=== PATIENT | male | born 1960 | race Caucasian/White ===

== ENCOUNTER → 2017-09-14 08:05 | Outpatient (CLI) | payer SELFPAY ==
--- NOTE | 2017-09-14 08:10 | US_ITS ---
STUDY: ABDOMINAL ULTRASOUND - RIGHT UPPER QUADRANT REASON FOR VISIT: Male, 56 years old. Elevated liver enzymes. TECHNIQUE: Ultrasound evaluation of the right upper quadrant was performed with real-time and static gomez-scale imaging. TECHNICAL QUALITY: Adequate. COMPARISON: Comparison is made with prior examination dated December 06, 2013. FINDINGS: Liver: The liver is slightly enlarged and measures 18.3 cm. There is increased echogenicity consistent with fatty infiltration. The bile ducts are within normal limits. There is hepatic color flow. The direction of portal flow is hepatopetal. There is no demonstrated mass lesion. Gallbladder: Normal distended gallbladder. The gallbladder wall measures 2.8 mm. There is a negative sonographic Becerra's sign. There is no pericholecystic fluid. There are no gallstones. Common Bile Duct (C.B.D.): The common bile duct measures 4.0 mm. Pancreas: Normal size of the head, body and tail of the pancreas. There is increased echogenicity of the pancreas. There is no demonstrated pancreatic mass or cyst. Right Kidney: Normal size of the right kidney. The right kidney measures 12.1 cm x 5.4 cm x 6.0 cm. Normal renal cortex. The right cortex measures 1.8 cm. There is no demonstrated renal mass or cyst. There is no right hydronephrosis. 4 mm calculus in the midportion of the kidney. US/Liver IMPRESSION: Mild degree of hepatomegaly with fatty infiltration of the liver. Electronically Signed: Jm Ware MD at 15:05 EDT Tel [phone], Service support ,
== END ==
PROVIDERS: Family Provider Nurse Practitioner; PCP Nurse Practitioner; Visit Provider Nurse Practitioner
DX: R74.8 Abnormal levels of other serum enzymes (principal)
CPT/HCPCS: 76705

== ENCOUNTER → 2017-10-08 12:53 | Outpatient (CLI) | payer SELFPAY ==
--- NOTE | 2017-10-08 12:55 | STE_ITS ---
Reason For Study: DYSPNEA Stress Results Protocol: Narciso Protocol Maximum Predicted HR: 162 bpm Target HR: 138 bpm% Max imum Predicted HR: 78 % DurationHeart Rate Stage (mm:ss) (bpm) BPCom ment BASELINE 71 140/90 2 CC DEFINITY STAGE 1 3:00 10 1 132/86 STAGE 2 3:00 11 6 144/92 STAGE 3 1:17 12 6 / 2CC DEFINITY RECOVERY 86 132/84 2 CC DEFINITY Stress Duration: 7:17 mm:ss Maximum Stress HR: 126 bpm Baseline Echocardiogram Findings The estimated ejection fraction is 60 %. Stress Echo Wall motion Data Resting WMIntermediate WMStress WM Resting Wall Motion Wall Motion Stress No regional wall motion No regional wall motion abnormalities noted. abnormalities noted. EKG Data Normal intervals are noted. The patient exercised according to the regular Narciso protocol for a total duration of 7:17. The maximum heart rate attained was 127 beats per minute. This was 78% of maximum predicted heart rate. The patient exercised into stage 3 of the Narciso protocol. During stress, there were no ST or T wave changes noted to suggest ischemia. No clinical angina was noted. Interpretation Summary The study was technically difficult. Contrast injection was performed. The estimated ejection fraction is 60 %. Normal adequate treadmill echocardiogram. Negative for ischemia by EKG and echocardiographic criteria. No anginal symptoms noted. Rare PVC noted during exercise. Average exercise capacity for age. Appropriate blood pressure response to exercise. Test terminated due to fatigue and dyspnea. Final LVEF of 70%. Decreased sensitivity due to poor echo windows requiring Definity enhancement agent. No complications. Ordering Physician: Rob Thompson Referring Physician: Rob Thompson Performed By: Nini Andrade RDCS
== END ==
PROVIDERS: Family Provider Nurse Practitioner; PCP Nurse Practitioner; Visit Provider Internal Medicine Cardiovascular Disease
DX: I25.10 Atherosclerotic heart disease of native coronary artery without angina pectoris (principal); I10 Essential (primary) hypertension; E78.5 Hyperlipidemia, unspecified; G47.33 Obstructive sleep apnea (adult) (pediatric); F17.200 Nicotine dependence, unspecified, uncomplicated
CPT/HCPCS: 93017; 93350; Q9957; A4216; C8928

== ENCOUNTER → 2017-12-04 15:47 | Outpatient (CLI) | payer SELFPAY ==
[2017-12-04 17:30] LABS: Absolute Lymphocyte Count 1.49 X10^3/ul (0.83-4.51); Absolute Neutrophil Count 5.1 X10^3/uL (2.0-7.7); Basophil# 0.04 X10^3/uL; Basophil% 0.4 % (0-1); Differential Indicated SCAN CRITERIA MET; Eosinophil# 0.02 X10^3/uL; Eosinophils% 0.2 % (0-5); Hematocrit 47.4 % (40-54); Hemoglobin 16.9 g/dl (13.0-16.5); Lymphocyte # 1.49 X10^3/ul (4.0); Lymphocyte % 16.7 % (19-41); Mean Corp Hgb Conc 35.7 g/gl (32-36); Mean Corpuscular Hgb 32.7 pg (27.0-32.0); Mean Corpuscular Volume 91.7 fL (80-94); Mean Platelet Vol. 11.2 fl (6.2-12.0); Monocyte# 2.23 X10^3/uL; Neutrophil % 57.4 % (47-70); POSITIVE COUNT NO; POSITIVE DIFFERENTIAL YES; POSITIVE MORPHOLOGY NO; Platelet Count 174 K/mm3 (150-450); RBC Distribution Width CV 13.4 % (11.6-14.6); RBC Distribution Width SD 44.3 fl (35.1-43.9); Red Blood Count 5.17 M/mm3 (4.6-6.2); White Blood Count 8.9 K/mm3 (4.4-11.0)
[2017-12-04 17:33] LABS: ALB/GLOB Ratio 0.8 RATIO (0.9-2.4); AST(SGOT) 48 U/L (15-37); Alanine Aminotransfer ALT/SGPT 54 U/L (16-61); Albumin, Serum 3.5 g/dL (3.2-5.0); Alkaline Phosphatase 117 U/L (45-117); Anion Gap 9 (5-15); BUN 13 mg/dL (7-18); BUN/Creat Ratio 13.1 RATIO (10-20); Calcium,Total 8.6 mg/dL (8.5-10.1); Chloride 99 mmol/L (98-107); EST Glomerular Filtration Rate 82 mL/min (>60); Est Glom Filt Rate - Afr Amer 99 mL/min (>60); Globulin 4.2 g/dL (2.2-4.2); Glucose 135 mg/dL (74-106); Potassium 3.5 mmol/L (3.5-5.1); Protein, Total 7.7 g/dL (6.4-8.2); Sodium Level 132 mmol/L (136-145)
[2017-12-04 18:08] LABS: Anisocytosis RARE; Macrocytosis RARE; Platelet Estimate ADEQUATE (ADEQ)
[2017-12-07 13:27] LABS: Pathologist Review Reviewed
== END ==
PROVIDERS: Family Provider Nurse Practitioner; PCP Nurse Practitioner; Visit Provider Internal Medicine
DX: R19.7 Diarrhea, unspecified (principal)
CPT/HCPCS: 36415; 80053; 83630; 85025; 87177; 87209; 87506

== ENCOUNTER → 2017-12-05 11:22 | Outpatient (CLI) | payer SELFPAY | PROVIDERS: Family Provider Nurse Practitioner; PCP Nurse Practitioner; Visit Provider Internal Medicine | DX: R19.7 Diarrhea, unspecified (principal) | CPT/HCPCS: 82274; 87177; 87209; 87493; 87506 ==

== ENCOUNTER 2019-08-04 10:00 | Outpatient (RCR) | payer SELFPAY ==
[2018-07-27 09:49] VITALS: BMI 34.7
== END 2019-08-06 23:59 ==
LOC: DC 10:00
PROVIDERS: PCP Nurse Practitioner; Visit Provider Nurse Practitioner
DX: Z71.3 Dietary counseling and surveillance (principal); E11.65 Type 2 diabetes mellitus with hyperglycemia
CPT/HCPCS: 97802; G0108

== ENCOUNTER 2019-08-31 08:52 | Outpatient (RCR) | payer SELFPAY ==
[2018-07-27 09:49] VITALS: BMI 34.7
== END 2019-08-31 12:05 | disposition home or self-care (01) ==
LOC: DC 08:52
PROVIDERS: PCP Nurse Practitioner; Visit Provider Nurse Practitioner
DX: Z71.3 Dietary counseling and surveillance (principal); E11.65 Type 2 diabetes mellitus with hyperglycemia
CPT/HCPCS: 97803

== ENCOUNTER 2021-12-06 15:44 | Emergency (ER) | payer MEDICAID, SELFPAY ==
[2021-12-06] VITALS (7 sets, daily range): BP systolic 135–178; BP diastolic 79–107; PULSE 85–94; RESP 12–88; TEMP 35.9–36.6; O2SAT 93–98; BMI 37.9
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
[2021-12-06] MEDS: HYDROmorphone 1 MG/ML Syringe 0.5 MG IV (16:02)
[2021-12-06] MEDS: Ondansetron 4 MG/2 ML Vial IV (16:02)
[2021-12-06 16:25] LABS: Absolute Lymphocyte Count 2.57 X10^3/uL (0.83-4.51); Absolute Neutrophil Count 7.2 X10^3/uL (2.0-7.7); Basophil# 0.07 X10^3/uL; Basophil% 0.6 % (0-1); Eosinophil# 0.07 X10^3/uL; Eosinophils% 0.6 % (0-5); Hemoglobin 15.8 g/dL (13.0-16.5); Lymphocyte # 2.57 X10^3/ul (0.83-4.51); Lymphocyte % 23.2 % (19-41); Mean Corp Hgb Conc 33.6 g/dL (32-36); Mean Corpuscular Hgb 31.9 pg (27.0-32.0); Mean Corpuscular Volume 94.9 fL (80-94); Mean Platelet Vol. 11.3 fl (6.2-12.0); Monocyte# 1.08 X10^3/uL; Monocyte% 9.7 % (0-10); NRBC Flagged by Analyzer 0 % (0-5); Neutrophil # 7.22 X10^3/uL (2.7-7.7); Neutrophil % 65.3 % (47-70); Platelet Count 200 K/mm3 (150-450); RBC Distribution Width CV 13.1 % (11.6-14.6); RBC Distribution Width SD 44.7 fl (35.1-43.9); Red Blood Count 4.95 M/mm3 (4.6-6.2); White Blood Count 11.1 K/mm3 (4.4-11.0)
[2021-12-06 16:37] LABS: Partial Thromboplast Time 24.8 Seconds (24.1-36.2); Prothrombin Time (Protime)PT. 12.6 SECONDS (11.7-14.9)
[2021-12-06 16:43] LABS: Anion Gap 9 (5-15); BUN 14 mg/dL (7-18); BUN/Creat Ratio 11.5 RATIO (10-20); Calcium,Total 9.2 mg/dL (8.5-10.1); Chloride 103 mmol/L (98-107); Creatinine, Serum 1.22 mg/dL (0.70-1.30); EST Glomerular Filtration Rate 64 mL/min (>60); Est Glom Filt Rate - Afr Amer 77 mL/min (>60); Estimated Creatinine Clearance 59.96 ml/min; Glucose 275 mg/dL (74-106); Potassium 4.3 mmol/L (3.5-5.1); Sodium Level 135 mmol/L (136-145)
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
--- NOTE | 2021-12-06 18:00 | CM.ED ---
Social work Note SW updated that pt had questions regarding Medicaid. SW in to speak with pt. SW introduced self at [facility]. Pt gave permission for SW to speak to her in front of her guest. Pt's sister Jessica present at [facility] and states she is the one who was asking about Medicaid. Jessica states pt is not working and has limited income. RAMON provided Jessica with self pay packet which includes Medicaid Application. RAMON also provided Jessica with PCP list as pt does not have a PCP Listed. Jessica states understanding. Priya Santana [employer], [employer]
[2021-12-06] MEDS: HYDROmorphone 0.5 MG/0.5 ML SYRINGE IV (18:18)
--- NOTE | 2021-12-06 18:20 | NURSING ---
CALLED [facility]INGH FOR DR LEACH. TRAUMA TRANSFER
[2021-12-06] MEDS: Propofol 200 MG/20 ML Vial IV BOLUS (18:53)
[2021-12-06] MEDS: HYDROmorphone 1 MG/ML Syringe IV (19:08)
--- NOTE | 2021-12-06 19:26 | ED.RN ---
REPORT CALLED TO [facility] AT THIS TIME.
[2021-12-06] MEDS: Cefazolin 1 GM/50 ML BAG IV (19:42)
== END 2021-12-06 19:51 | disposition short-term general hospital (02) ==
PROVIDERS: Emergency Provider Emergency Medicine; Visit Provider Emergency Medicine
DX: S82.301B Unspecified fracture of lower end of right tibia, initial encounter for open fracture type I or II (principal); E11.9 Type 2 diabetes mellitus without complications; I10 Essential (primary) hypertension; I25.10 Atherosclerotic heart disease of native coronary artery without angina pectoris; V89.2XXA Person injured in unspecified motor-vehicle accident, traffic, initial encounter; E78.5 Hyperlipidemia, unspecified; G47.33 Obstructive sleep apnea (adult) (pediatric); K21.9 Gastro-esophageal reflux disease without esophagitis; Z86.73 Personal history of transient ischemic attack (TIA), and cerebral infarction without residual deficits; Z79.82 Long term (current) use of aspirin; Z82.49 Family history of ischemic heart disease and other diseases of the circulatory system; F17.210 Nicotine dependence, cigarettes, uncomplicated; M54.2 Cervicalgia
CPT/HCPCS: 70450; 71045; 72125; 73600; 80048; 85025; 85610; 85730; 96374; 96375; 96376; 99285; A4216; J2405

== ENCOUNTER 2022-08-27 03:19 | Inpatient (IN) | payer MEDICAID, SELFPAY ==
[2022-08-27] VITALS (18 sets, daily range): BP systolic 126–183; BP diastolic 68–98; PULSE 88–120; RESP 15–28; TEMP 36.6–37.3; O2SAT 93–99; BMI 33.2
--- NOTE | 2022-08-27 03:45 | CT_ITS ---
We are attempting to reach an attending provider to discuss findings. An addendum with communication details will be sent when the communication is complete. STUDY: CT ABDOMEN AND PELVIS WITH CONTRAST REASON FOR EXAM: Male, 61 years old. RLQ pain. Diabetes hypertension. TECHNIQUE: IV Contrast: IV 100mL [id number] Enteric contrast: None administered. Axial images obtained. Coronal and sagittal reformatted images provided. Individualized dose optimization techniques were used for this CT. COMPARISON: 10/21/2015 CT abdomen pelvis. FINDINGS: Partially visualized lower chest: Lung bases unremarkable. Liver: No concerning lesions. Gallbladder and biliary tree: No visible gallstones. No pericholecystic inflammation. No biliary ductal dilation. Pancreas: No pancreatic lesions or inflammation. Spleen: Normal size, no splenic lesions. Adrenal glands: No concerning masses. Kidneys and ureters: No hydronephrosis or renal stones. No concerning masses. No ureteral dilation. Bowel: 1.5 cm appendicolith in the appendiceal orifice. Dilated inflamed appendix curls medially, posteriorly and then anteriorly off the cecal apex, axial images 86-94 and coronal images 46-68. Prominent adjacent inflammation but no extraluminal air or abscess. Mild reactive inflammatory changes of a loop of sigmoid colon adjacent to the inflamed appendix. Remainder of the bowel unremarkable. No obstruction. Urinary bladder: No stones or wall thickening. Reproductive:Normal size prostate. Vascular: No abdominal aortic aneurysm. Patent portal and mesenteric veins. Retroperitoneal and peritoneal spaces: Trace fluid in the pelvis. No free air or extraluminal air. No abscess. No lymphadenopathy. Osseous: No acute osseous abnormality. Posterior fusion and laminectomy L5-S1. Lateral L5 spondylolysis. Mild left scoliosis lumbar spine. Abdominal and pelvic wall: No concerning findings. Small left inguinal hernia contains fat but no bowel. Any findings described in the findings sections and not included in the impression are incidental and do not require imaging follow-up. CT/Abdomen/Pelvis W IV Cont ONLY IMPRESSION: Acute appendicitis with a 1.5 cm appendicolith in the appendiceal orifice. Prominent adjacent inflammation but no definite evidence of rupture. Electronically Signed: Rusty Puente MD at 5:32 EDT Reading Location ID and State: [facility] / [place] Tel , Service support ,
--- NOTE | 2022-08-27 03:56 | ED.VIS.GI ---
HPI HPI - GI History of Present Illness Chief Complaint: Abd Pain Informant: patient Abdominal Pain/Flank Pain Onset: Yesterday Context: - (Awoke with pain) Timing: Continuous Quality: Aching Location: RLQ (No radiation into back, scrotum. No migration.) Current Severity: Moderate Maximum Severity: Moderate Worsened by: Car ride Relieved by: Nothing Nausea/Vomiting/Emesis GI Symptom: Positive for Nausea; Negative for Vomiting Diarrhea/Melena/Hematochezia GI Symptom: Negative for Diarrhea, Melena or Hematochezia Associated Symptoms Associated Symptoms: Negative for Dysuria, Frequency or Hematuria Narrative Narrative: Patient woke up with moderate-severe pain in the right lower quadrant has persisted for about 24 hours. Never had this before. Prior herniorrhaphy, no other abdominal surgeries except for when he was a baby and he thinks that was a small hernia as well. No fevers. No urinary symptoms. Decreased appetite today due to this. [facility] Medical History (Updated 08/27/22 @ 05:[address] Garret Mark MD) Atherosclerotic heart disease of [place] coronary artery without angina pectoris Diabetes GERD (gastroesophageal reflux disease) HTN (hypertension) Hx of benign neoplasm of brain Hyperlipidemia YE (obstructive sleep apnea) TIA (transient ischemic attack) Tobacco use disorder Home Medications metformin 500 mg tablet 500 mg PO DAILY 10/21/15 [History Last Taken 11/14/15 04:30 500 MG] gemfibrozil 600 mg tablet 600 mg PO BID #60 tabs 06/18/17 [Rx Last Taken Unknown] amitriptyline 50 mg tablet 50 mg PO QHS 09/09/17 [History Last Taken Unknown] omeprazole 40 mg capsule,delayed release 40 mg PO BID 09/09/17 [History Last Taken Unknown] escitalopram oxalate 20 mg tablet 20 mg PO QHS 10/17/17 [History Last Taken Unknown] aspirin 81 mg tablet,delayed release (Adult Aspirin Regimen) 81 mg PO DAILY 04/16/18 [History Last Taken Unknown] cholecalciferol (vitamin D3) 100 mcg (4,000 unit) capsule 4,000 unit PO DAILY 07/27/18 [History Last Taken Unknown] losartan 50 mg tablet 50 mg PO QDAY #90 tabs 07/27/18 [Rx Last Taken Unknown] metoprolol succinate 25 mg tablet,extended release 24 hr 25 mg PO DAILY #90 tabs 07/27/18 [Rx Last Taken Unknown] metoprolol succinate 25 mg tablet,extended release 24 hr 25 mg PO DAILY #30 tabs 07/29/18 [Rx Last Taken Unknown] Allergy/AdvReac Type Severity Reaction Status Date / Time Sulfa (Sulfonamide Allergy Severe Hives, Verified 03/11/22 13:21 Antibiotics) Sweating, SOB Family History (Updated 08/27/22 @ 04:[address] Joselyn Cano MD) Father CAD (coronary artery disease) Myocardial infarction Hypertension Heart disease Mother Heart disease Atrial arrhythmia Surgical History (Updated 08/27/22 @ 05:[address] Garret Mark MD) H/O cystoscopy History of arthroscopy of right knee history of benign tumor of parotid gland History of brain surgery History of left knee surgery History of lumbar surgery S/P herniorrhaphy Social History (Updated 08/27/22 @ 04:[address] Joselyn Cano MD) household members: none Smoking Status: Current some day smoker tobacco type: cigarettes alcohol intake: never substance use type: does not use ROS ROS ED Constitutional Constitutional ED: Denies chills or fever(s) Eyes Eyes: Denies change in vision or diplopia ENT ENT ED: Denies rhinorrhea or sore throat Cardiovascular Cardiovascular: Denies chest pain or palpitations Respiratory/Chest Respiratory/Chest: Denies cough or dyspnea Gastrointestinal Gastrointestinal: Reports abdominal pain and nausea; Denies diarrhea or vomiting Genitourinary Genitourinary ED: Denies dysuria or hematuria Musculoskeletal Musculoskeletal: Denies back pain or neck pain Integumentary Denies abscess or rash Neurologic Neurologic: Denies headache(s), paresthesias or weakness Psychiatric Psychiatric: Denies anxiety or suicidal thoughts EXAM Physical Exam Const Vital Signs: 08/27/22 03:21 08/27/22 04:31 Temperature 98.4 F Temperature Source Oral Pulse Rate 120 H 108 H Respiratory Rate 18 16 Blood Pressure 160/90 H 175/98 H Blood Pressure Mean 113 123 Pulse Ox 94 98 Oxygen Delivery Method Room Air Room Air Positive well nourished, well developed and obese General Appearance ED: well developed and NAD Nutritional Appearance: obese HEENT Reports moist mucous membranes normocephalic and atraumatic Eyes PERRL and EOMs intact bilaterally Neck full ROM and supple Resp normal respiratory effort and clear to auscultation bilaterally Cardio regular rate, regular rhythm and no murmurs Rate: tachycardic GI non-distended GI Narrative: Tender throughout right lower quadrant, with some mild involuntary guarding, no rebound tenderness. Positive psoas. Negative Rovsing, negative obturator. No other areas of abdominal tenderness. Auscultation: normoactive bowel sounds Palpation: soft Back/Spine no CVA tenderness General Back: other FROM Extremity normal to inspection General Extremety ED: Negative for edema, pulses abnormal or tenderness General Extremity: Negative for edema or pulses abnormal Neuro oriented x3, CN's II-XII intact bilaterally and no sensory deficits noted Sensorium / Orientation: awake and alert Motor Exam: strength 5/5 throughout Skin no rashes or lesions noted and no wounds MDM MDM MDM Narrative Medical decision making narrative: With patient waking up with significant pain at the beginning, kidney stones in the differential diagnosis, but given how tender the patient is throughout the right lower quadrant, also concern for acute appendicitis. Labs noted, he has a significant leukocytosis. Obtained a CT with IV contrast, on my interpretation it appears to show nonruptured acute appendicitis with an appendicolith. My interpretation of the CT agrees with that of the radiologist. Started on Zosyn, discussed with surgery Dr. Cramer, plan is for emergent surgery. Pain well controlled on morphine. Preoperative 1 view chest x-ray my interpretation is unremarkable. Preoperative EKG on my interpretation sinus tachycardia at 106, no acute injury pattern and otherwise normal EKG. Lab Data Attestation: I reviewed the patient's lab results. Labs: Laboratory Results - last 24 hr 08/27/22 08/27/22 08/27/22 03:29 03:29 04:52 WBC 25.2 H RBC 5.41 Hgb 16.9 H Hct 48.7 MCV 90.0 MCH 31.2 MCHC 34.7 RDW Std Deviation 45.9 H RDW Coeff of Gogo 13.8 Plt Count 220 MPV 10.7 Immature Gran % (Auto) 0.600 Neut % (Auto) 81.2 H Lymph % (Auto) 6.1 L U[place] % (Auto) 11.9 H Eos % (Auto) 0.0 Baso % (Auto) 0.2 Absolute Neuts (auto) 20.4 H Absolute Lymphs (auto) 1.54 Nucleated RBC % 0 Diff Path Review May foll Sodium 131 L Potassium 4.0 Chloride 99 Carbon Dioxide 21.0 Anion Gap 11 BUN 15 Creatinine 0.88 Estim Creat Clear Calc 83.13 Est GFR (MDRD) Af Amer 112 Est GFR (MDRD) Non-Af 92 BUN/Creatinine Ratio 17.0 Glucose 230 H Calcium 9.3 Urine Color Yellow Urine Clarity Clear Urine pH 6.0 Ur Specific [place] 1.020 Urine Protein 30 H Urine Glucose (UA) 1000 H Urine Ketones 150 A* Urine Occult Blood 10 H Urine Nitrite Negative Urine Bilirubin Negative Urine Urobilinogen 1 H Ur Leukocyte Esterase 25 H Urine RBC 0-5 SEEN Urine WBC 0-5 SEEN Ur Squamous Epith Cells 0 SEEN Urine Bacteria 1+ Urine Mucus 2+ Radiography Diagnostic Testing: Clinical Impression(s) from Imaging Studies Abdomen/Pelvis CT 08/27/22 03:45 IMPRESSION: Acute appendicitis with a 1.5 cm appendicolith in the appendiceal orifice. Prominent adjacent inflammation but no definite evidence of rupture. Electronically Signed: Rusty Puente MD at 5:32 EDT Reading Location ID and State: [address] [place] [address] Tel , Service support , ADDENDUM: 08/27/22 0541 IMPRESSION: Acute appendicitis with a 1.5 cm appendicolith in the appendiceal orifice. Prominent adjacent inflammation but no definite evidence of rupture. N.B. : The above Results were Read Back by Rusty Puente MD to Garret Mark MD, and understanding confirmed on 08/27/2022 05:34:22 (ET). Electronically Signed: Rusty Puente MD at 5:32 EDT Reading Location ID and State: [address] [place] [address] Tel , Service support , Rhythm Strip Rhythm Strip: Sinus Tach Rate: 110 Ectopy: None Critical Care Time Critical Care Time: Yes Critical care time (excluding procedures): 30-74 minutes (35 min), Including time spent:, Discussing w/Patient &/or Family/Freight Inspector, Discussing w/Consultants, Arranging Admission or Transfer and Performing Direct Patient Care at Bedside Discharge Plan Dx/Rx/DC Orders Clinical Impression: Acute appendicitis Disposition Disposition: [facility]
[2022-08-27 04:00] LABS: Absolute Lymphocyte Count 1.54 X10^3/uL (0.83-4.51); Absolute Neutrophil Count 20.4 X10^3/uL (2.0-7.7); Basophil# 0.05 X10^3/uL; Basophil% 0.2 % (0-1); Eosinophil# 0.01 X10^3/uL; Hematocrit 48.7 % (40-54); Hemoglobin 16.9 g/dL (13.0-16.5); Lymphocyte # 1.54 X10^3/ul (0.83-4.51); Lymphocyte % 6.1 % (19-41); Mean Corp Hgb Conc 34.7 g/dL (32-36); Mean Corpuscular Hgb 31.2 pg (27.0-32.0); Mean Platelet Vol. 10.7 fl (6.2-12.0); Monocyte% 11.9 % (0-10); NRBC Flagged by Analyzer 0 % (0-5); Neutrophil # 20.42 X10^3/uL (2.7-7.7); Neutrophil % 81.2 % (47-70); POSITIVE DIFFERENTIAL YES; Platelet Count 220 K/mm3 (150-450); RBC Distribution Width CV 13.8 % (11.6-14.6); RBC Distribution Width SD 45.9 fl (35.1-43.9); Red Blood Count 5.41 M/mm3 (4.6-6.2); White Blood Count 25.2 K/mm3 (4.4-11.0)
[2022-08-27 04:01] LABS: Differential Indicated SCAN CRITERIA MET
[2022-08-27 04:14] LABS: Anion Gap 11 (5-15); BUN 15 mg/dL (7-18); Calcium,Total 9.3 mg/dL (8.5-10.1); Chloride 99 mmol/L (98-107); Creatinine, Serum 0.88 mg/dL (0.70-1.30); EST Glomerular Filtration Rate 92 mL/min (>60); Est Glom Filt Rate - Afr Amer 112 mL/min (>60); Estimated Creatinine Clearance 83.13 ml/min; Glucose 230 mg/dL (74-106); Sodium Level 131 mmol/L (136-145)
[2022-08-27] MEDS: Morphine 4 MG/ML Syringe IV ×2 (04:28→05:46)
[2022-08-27] MEDS: Ondansetron 4 MG/2 ML Vial IV (04:28)
[2022-08-27] MEDS: 0.9% Normal Saline 1,000 ML 1000 ML IV (04:29)
[2022-08-27 04:58] LABS: Squamous Epithelial Cells - UA 0 SEEN /hpf (0-5)
[2022-08-27 05:00] LABS: Color, Urine Yellow (Yellow); Glucose, Dipstick 1000 mg/dl (Normal); Leukocyte Esterase-Dipstick 25 /ul (Negative); Nitrite-Dipstick Negative (Negative); Occult Blood-Urine 10 /ul (Negative); Protein-Dipstick 30 mg/dl (Negative); Urine Bilirubin Dipstick Negative (Negative); Urine Clarity Clear (Clear); Urine Urobilinogen 1 mg/dl (Normal)
[2022-08-27 05:13] LABS: Ketone-Dipstick 150 mg/dl (Negative)
[2022-08-27 05:14] LABS: Bacteria 1+ /hpf (None Seen); Mucous, Urine 2+ /hpf (<or=2+); Red Blood Cells-Urine 0-5 SEEN /hpf (0-5); White Blood Cells 0-5 SEEN /hpf (0-5)
--- NOTE | 2022-08-27 05:27 | RAD_ITS ---
STUDY: X-RAY CHEST REASON FOR EXAM: Male, 61 years old. Appendicitis. Preop. TECHNIQUE: AP COMPARISON: 05/06/2015 CXR FINDINGS: No apparent pneumothorax, pneumonia, pleural effusion, or edema. Cardiac silhouette, naga and mediastinal contours are within normal limits. No acute osseous abnormality. No evidence of free air under the diaphragm. RAD/Chest 1 View (Portable) IMPRESSION: Negative chest radiograph. Electronically Signed: Rusty Puente MD at 5:59 EDT Reading Location ID and State: [facility] / [place] Tel , Service support ,
--- NOTE | 2022-08-27 05:27 | PCM.HP.STD ---
HPI - General General Date of Admission: 08/27/22 HPI Narrative KARL FUNES, is a 61 M who presents to the ER due to right lower quadrant pain starting at 4 AM yesterday morning. Patient did have nausea and vomiting with this. Patient only had half a bowl of chicken needle soup about 5 PM yesterday. Patient is diabetic and says blood sugar ranges but usually is around 130 has been a lot higher and lower recently. Patient CT abdomen pelvis was consistent with acute appendicitis with appendicolith at the base-read pending. Patient white blood count is 25. Patient to get IV Zosyn in the ER for acute appendicitis. [facility] Medical History (Updated 08/27/22 @ 05:[address] Debbi Cramer MD) Atherosclerotic heart disease of [place] coronary artery without angina pectoris Diabetes GERD (gastroesophageal reflux disease) HTN (hypertension) Hx of benign neoplasm of brain Hyperlipidemia YE (obstructive sleep apnea) TIA (transient ischemic attack) Tobacco use disorder Home Medications metformin 500 mg tablet 500 mg PO DAILY 10/21/15 [History Last Taken 11/14/15 04:30 500 MG] gemfibrozil 600 mg tablet 600 mg PO BID #60 tabs 06/18/17 [Rx Last Taken Unknown] amitriptyline 50 mg tablet 50 mg PO QHS 09/09/17 [History Last Taken Unknown] omeprazole 40 mg capsule,delayed release 40 mg PO BID 09/09/17 [History Last Taken Unknown] escitalopram oxalate 20 mg tablet 20 mg PO QHS 10/17/17 [History Last Taken Unknown] aspirin 81 mg tablet,delayed release (Adult Aspirin Regimen) 81 mg PO DAILY 04/16/18 [History Last Taken Unknown] cholecalciferol (vitamin D3) 100 mcg (4,000 unit) capsule 4,000 unit PO DAILY 07/27/18 [History Last Taken Unknown] losartan 50 mg tablet 50 mg PO QDAY #90 tabs 07/27/18 [Rx Last Taken Unknown] metoprolol succinate 25 mg tablet,extended release 24 hr 25 mg PO DAILY #90 tabs 07/27/18 [Rx Last Taken Unknown] metoprolol succinate 25 mg tablet,extended release 24 hr 25 mg PO DAILY #30 tabs 07/29/18 [Rx Last Taken Unknown] Allergy/AdvReac Type Severity Reaction Status Date / Time Sulfa (Sulfonamide Allergy Severe Hives, Verified 03/11/22 13:21 Antibiotics) Sweating, SOB Family History (Updated 08/27/22 @ 04:[address] Joselyn Cano MD) Father CAD (coronary artery disease) Myocardial infarction Hypertension Heart disease Mother Heart disease Atrial arrhythmia Surgical History (Updated 08/27/22 @ 05:[address] Debbi Cramer MD) H/O cystoscopy History of arthroscopy of right knee history of benign tumor of parotid gland History of brain surgery History of left knee surgery History of lumbar surgery S/P herniorrhaphy Social History (Updated 08/27/22 @ 04:[address] Joselyn Cano MD) household members: none Smoking Status: Current some day smoker tobacco type: cigarettes alcohol intake: never substance use type: does not use Vital Signs Vital Signs Vital Signs: 08/27/22 03:21 Temperature 98.4 F Temperature Source Oral Pulse Rate 120 H Respiratory Rate 18 Blood Pressure 160/90 H Blood Pressure Mean 113 Pulse Ox 94 Oxygen Delivery Method Room Air Weight Weight: 218 lb 7.649 oz Body Mass Index (BMI) 33.2 Physical Exam Const alert, oriented x3 and no apparent distress HEENT normocephalic and head/scalp atraumatic Resp normal respiratory effort Cardio regular rate GI soft to palpation; Negative for non-distended GI Narrative: Previous umbilical hernia repair incision well-healed Palpation: tender RLQ; Negative for guarding Extremity no clubbing, cyanosis or edema Neuro CN's II-XII intact bilaterally Psych mental status grossly normal Results Lab / Micro Data Result Diagrams: 08/27/22 03:29 08/27/22 03:29 Labs: Laboratory Results - last 24 hr 08/27/22 03:29: WBC 25.2 H, RBC 5.41, Hgb 16.9 H, Hct 48.7, MCV 90.0, MCH 31.2, MCHC 34.7, RDW Std Deviation 45.9 H, RDW Coeff of Goog 13.8, Plt Count 220, MPV 10.7, Immature Gran % (Auto) 0.600, Neut % (Auto) 81.2 H, Lymph % (Auto) 6.1 L, Barren % (Auto) 11.9 H, Eos % (Auto) 0.0, Baso % (Auto) 0.2, Absolute Neuts (auto) 20.4 H, Absolute Lymphs (auto) 1.54, Nucleated RBC % 0, Diff Path Review October08/27/22 03:29: Sodium 131 L, Potassium 4.0, Chloride 99, Carbon Dioxide 21.0, Anion Gap 11, BUN 15, Creatinine 0.88, Estim Creat Clear Calc 83.13, Est GFR (MDRD) Af Amer 112, Est GFR (MDRD) Non-Af 92, BUN/Creatinine Ratio 17.0, Glucose 230 H, Calcium 9.3 08/27/22 04:52: Urine Color Yellow, Urine Clarity Clear, Urine pH 6.0, Ur Specific [place] 1.020, Urine Protein 30 H, Urine Glucose (UA) 1000 H, Urine Ketones 150 A*, Urine Occult Blood 10 H, Urine Nitrite Negative, Urine Bilirubin Negative, Urine Urobilinogen 1 H, Ur Leukocyte Esterase 25 H, Urine RBC 0-5 SEEN, Urine WBC 0-5 SEEN, Ur Squamous Epith Cells 0 SEEN, Urine Bacteria 1+, Urine Mucus 2+ Assessment & Plan Assessment/Plan (1) Acute appendicitis: (2) Diabetes: PLAN: Plan 1. Discussed procedure laparoscopic appendectomy, possible open, possible bowel resection along with the risk but not limited to bleeding, infection/abscess, injury to another organ (small bowel, colon, etc.), adhesion, hernia at incision sites, and anesthesia. Patient had no further questions. 2. Patient did get insulin for his blood sugar of 230 in the ER. Debbi Cramer M.D. Pager: [phone] [facility] [address] [place] [address], [address] [place] [id number] Office: [phone]
[2022-08-27] MEDS: Insulin Lispro 100 UNIT/ML INSULN.PEN 6 UNIT SC (05:50)
[2022-08-27] MEDS: Lactated Ringers 1,000 ML 150 ML IV ×3 (06:16→08:31)
--- NOTE | 2022-08-27 06:30 | APP_PTH ---
PATIENT: KARL FUNES LOC: MS3 U#:[id number] AGE/SX: 61/M ROOM: RI317 RE08/28/[address]: Dr. Debbi Cramer MD : 1960 BED: 1 DIS: 08/29/2022 SPEC #: [id number] RECD: 08/27/22 09:04 STATUS: FILI CORI #: [id number] JADA: 08/27/22 06:[address]: Debbi Cramer DEPT: SURGICAL PATHOLOGY RECD BY: Camila Loaiza ENTERED: 08/27/22 09:42 SP TYPE: APPENDIX OTHR DR: Lyric Weaver, SOFTWARE DEVELOPER-C Tissues: Appendix, NOS Procedures: Surgery Specimen Level III HEADER OPERATION: Laparoscopic appendectomy PRE-OP DIAGNOSIS: Acute appendicitis TISSUE SUBMITTED: Appendix MICROSCOPIC DIAGNOSIS Appendix, appendectomy: Acute ruptured appendicitis and periappendicitis. AMPARO:mark 08/28/2022 MICROSCOPIC DESCRIPTION Slides are reviewed. GROSS DESCRIPTION Received in fixative is one container labeled with the patient's name and designated appendix. The specimen consists of a C-shaped appendix measuring 12.0 cm in length and up to 1.0 cm in diameter. The attached periappendiceal adipose tissue measures 3.5 cm in width. The serosal surface is congested. A focal area of rupture is noted close to the tip. The lumen contains hemorrhagic fluid and fecal material. No fecalith is identified. Composite Layup Worker sections are submitted in one cassette. / AMPARO:mark 08/27/2022 TC:2 CPT: 45342
[2022-08-27] MEDS: Bupivacaine 0.25% 30 ML Vial INFILT (06:52)
--- NOTE | 2022-08-27 07:35 | PCM.OPRPT ---
Report of Operation Date of Procedure: 08/27/22 Pre-Operative Diagnosis: Acute appendicitis, leukocytosis Post-Operative Diagnosis: Acute perforated necrotic appendicitis, leukocytosis Surgery/Procedure Performed:: Laparoscopic appendectomy, placement of 15 [place] round BECKY Surgeon: Debbi Cramer community association manager: Jennifer Kumar Type of Anesthesia: General/Supplemental Anesthesiologist: Jaret Garcia Special Medications: Zosyn IV in the ER for acute appendicitis Specimen's removed: Perforated appendicitis, culture abdominal fluid Drains: 15 Gabonese BECKY Estimated Blood Loss (mL): < 10 cc Description of Procedure: Indications: 61-year-old male presented to the ER with new right lower quadrant pain yesterday morning at 4 AM. Patient has a history of umbilical hernia pair with mesh. On workup he was found to have acute appendicitis on CT and a leukocytosis of 25. Patient was started on antibiotics in the ER for acute appendicitis-Zosyn 3.375 g IV x1 Description of the procedure: The patient was placed on operating table in supine position. General anesthesia was induced. A timeout was completed verifying correct patient, procedure, position and special equipment prior to beginning procedure. Abdomen was prepped and draped in usual sterile fashion. Incision was made in the natural skin line the umbilicus with a 15 blade scalpel. The fascia was elevated and incised. Entry into the peritoneum was confirmed visually and no bowel was noted in the vicinity of the incision. The Fry trocar was placed under direct vision. Abdomen insufflated with a pressure of 12-15 mmHg. Patient tolerated insertion well. The scope was inserted and the abdomen inspected. No injuries from initial trocar placement were noted. Feculent fluid was seen in the right lower quadrant in the appendix noted to be gangrenous. An direct visualization 2 -5 mm trocars were placed one above the symphysis pubis and below the hairline and one in the left lower quadrant lateral to the rectus muscle. Care is taken to avoid injury to the bladder and inferior epigastric vessels. The table was placed in Trendelenburg position with the right side elevated. The appendix was grasped with atraumatic grasper and elevated. It was noted to be perforated in gangrenous small areas of the appendix. A window was developed in the mesoappendix at the point between the base of the appendix and the cecum. An endoscopic 45 mm linear cutting stapler blue load was then used to divide and staple the base of the appendix. Enseal was used to divide the mesoappendix. The appendix was withdrawn into the Fry trocar after being placed endoscopically retrieval bag. Appendix was sent to pathology. The appendiceal stump was then irrigated and hemostasis was assured. Fluid was suctioned no other pathology was identified. The 12 mm port site was enlarged to remove the appendix. Secondary trochars were removed under direct visualization. No bleeding was noted trocar sites. The laparoscope withdrawn and the supraumbilical midline trocar removed. The abdomen was allowed to collapse. Local anesthesia of 20 mL of 0.25% Marcaine was used at the incision sites. The umbilical trocar site was closed with 2 [id number] 0 PDS suture. The skin was closed using sutures of 4-0 Monocryl and Steri-Strips. The patient was extubated. The patient tolerated the procedure well and was taken to the postanesthesia care unit in satisfactory condition. Complications none
[2022-08-27 08:50] LABS: Bedside Glucose 261 mg/dL (74-106)
[2022-08-27] MEDS: Insulin Lispro 100 UNIT/ML INSULN.PEN SC ×3 (11:10→21:12)
[2022-08-27] MEDS: Losartan Potassium 50 MG Tablet PO (11:12)
[2022-08-27] MEDS: Metoprolol(XL)Succ 25 MG Tablet PO (11:12)
[2022-08-27 11:25] LABS: Bedside Glucose 298 mg/dL (74-106)
[2022-08-27] MEDS: oxyCODONE 5 MG Tablet PO ×2 (13:28→18:57)
[2022-08-27] MEDS: Insulin Glargine-YFGN 100 UNIT/ML Pen 53 UNIT SC (14:28)
[2022-08-27] MEDS: 0.9% Normal Saline 1,000 ML 150 ML IV (16:41)
[2022-08-27 17:01] LABS: Bedside Glucose 297 mg/dL (74-106)
[2022-08-27] MEDS: Escitalopram Oxalate 20 MG Tablet PO (21:12)
[2022-08-27] MEDS: Amitriptyline 25 MG Tablet 50 MG PO (21:12)
[2022-08-27 22:35] LABS: Bedside Glucose 150 mg/dL (74-106)
[2022-08-28] MEDS: 0.9% Normal Saline 1,000 ML 150 ML IV ×2 (00:15→06:34)
[2022-08-28] MEDS: oxyCODONE 5 MG Tablet PO (00:43)
[2022-08-28 02:39] VITALS: BP 143/77; PULSE 84; RESP 18; TEMP 36.8; O2SAT 94
[2022-08-28 02:43] VITALS: BMI 33.2
[2022-08-28 05:49] VITALS: BMI 33.2
[2022-08-28] MEDS: 0.9% Saline Lock 10 ML Syringe IV (06:33)
[2022-08-28 07:05] LABS: Bedside Glucose 122 mg/dL (74-106)
[2022-08-28 08:30] VITALS: BP 144/89; PULSE 89; RESP 18; TEMP 36.6; O2SAT 93
--- NOTE | 2022-08-28 08:43 | PN.SURG_ITS ---
Subjective Subjective Patient states he still some soreness in his right lower quadrant, BECKY purulent, positive flatus and tolerating diet, 4 L nasal cannula?does have a CPAP at night was 2 L during the day. Objective Data Objective Data Vital Signs: Vital Signs Temp Pulse Resp BP Pulse Ox O2 Del Method O2 Flow Rate 98.2 F 84 18 143/77 H 94 Nasal Cannula 4 08/28/22 02:39 08/28/22 02:39 08/28/22 02:39 08/28/22 02:39 08/28/22 02:39 08/28/22 02:39 08/28/22 02:39 Oxygen Flow Rate (L/min) 4 Oxygen Delivery Method Nasal Cannula Weight: 218 lb 4.122 oz Body Mass Index (BMI) 33.2 Intake & Output: Intake and Output for Last 24 Hours 08/26/22 08/27/22 08/28/22 23:59 23:59 23:59 Intake Total 6420 / 6920 1996.5 / 1996.5 Output Total 2175 / 2975 1600 / 1600 Balance 4245 / 3945 397.5 / 397.5 Lab / Micro Data Result Diagrams: 08/27/22 03:29 08/27/22 03:29 Labs: Laboratory Results - last 24 hr 08/27/22 08:04: POC Glucose 261 H 08/27/22 11:06: POC Glucose 298 H 08/27/22 16:35: POC Glucose 297 H 08/27/22 21:11: POC Glucose 150 H 08/28/22 06:33: POC Glucose 122 H Micro: Microbiology 08/27/22 07:41 Abs - Abdominal Gram Stain - Final Rhythm Strip Rhythm Strip: Sinus Tach Rate: 110 Ectopy: None Physical Exam Const oriented x3 Resp normal respiratory effort Resp Narrative: On 4 L nasal cannula Cardio regular rate GI soft to palpation GI Narrative: BECKY purulent, incisions clean dry and intact and dressed, tender near incisions mild right lower quadrant no peritoneal signs Assessment & Plan Assessment/Plan (1) Acute appendicitis: (2) Diabetes: PLAN: Plan Continue diabetic diet. Metformin on hold due to IV contrast for another 24 hours. Patient is on long-acting and short acting insulin. Continue to monitor BECKY currently it is purulent. Continue IV Zosyn, follow drain cultures?did send another one this morning. We will give patient Lasix 40 mg p.o. this morning as he is up to 4 L as previously on 2 L but he does use CPAP overnight did not bring his in. Debbi Cramer M.D. Pager: [phone] [facility] [address] [place] [address], [address] [place] [address] Office: [phone]
[2022-08-28 09:14] LABS: Absolute Neutrophil Count 14.7 X10^3/uL (2.0-7.7); Basophil# 0.05 X10^3/uL; Basophil% 0.3 % (0-1); Differential Indicated SCAN CRITERIA MET; Eosinophil# 0.02 X10^3/uL; Eosinophils% 0.1 % (0-5); Hematocrit 42.5 % (40-54); Hemoglobin 14.2 g/dL (13.0-16.5); Lymphocyte % 9.4 % (19-41); Mean Corp Hgb Conc 33.4 g/dL (32-36); Mean Corpuscular Hgb 31.4 pg (27.0-32.0); Mean Platelet Vol. 10.9 fl (6.2-12.0); Monocyte# 1.53 X10^3/uL; Monocyte% 8.4 % (0-10); NRBC Flagged by Analyzer 0 % (0-5); Neutrophil # 14.74 X10^3/uL (2.7-7.7); Neutrophil % 81.2 % (47-70); POSITIVE DIFFERENTIAL YES; Platelet Count 174 K/mm3 (150-450); RBC Distribution Width SD 48.6 fl (35.1-43.9); Red Blood Count 4.52 M/mm3 (4.6-6.2); White Blood Count 18.1 K/mm3 (4.4-11.0)
[2022-08-28 09:20] VITALS: PULSE 80
[2022-08-28] MEDS: Losartan Potassium 50 MG Tablet PO (09:20)
[2022-08-28] MEDS: Metoprolol(XL)Succ 25 MG Tablet PO (09:20)
[2022-08-28] MEDS: Furosemide 40 MG Tablet PO (09:20)
[2022-08-28] MEDS: Insulin Glargine-YFGN 100 UNIT/ML Pen 53 UNIT SC (09:23)
[2022-08-28 09:41] LABS: Anion Gap 6 (5-15); BUN 13 mg/dL (7-18); BUN/Creat Ratio 14.9 RATIO (10-20); Calcium,Total 9.1 mg/dL (8.5-10.1); Chloride 103 mmol/L (98-107); Creatinine, Serum 0.87 mg/dL (0.70-1.30); EST Glomerular Filtration Rate 94 mL/min (>60); Est Glom Filt Rate - Afr Amer 113 mL/min (>60); Estimated Creatinine Clearance 84.08 ml/min; Glucose 129 mg/dL (74-106); Potassium 4.3 mmol/L (3.5-5.1); Sodium Level 133 mmol/L (136-145)
[2022-08-28 09:47] LABS: Pathologist Review Reviewed
[2022-08-28 09:50] VITALS: BMI 33.2
[2022-08-28 10:00] LABS: Differential Comment SCANNED
[2022-08-28] MEDS: Insulin Lispro 100 UNIT/ML INSULN.PEN SC (11:39)
[2022-08-28 13:01] VITALS: BMI 33.2
--- NOTE | 2022-08-28 13:10 | CASEMGMT ---
MAYUR BECKHAM Assessment: Face to Face with pt for initial transition planning/care coordination assessment. RN CM introduced self and role at [facility] [place], pt voices understanding and consents to assessment. Pt is A/O x4 and answers all questions appropriately at this time. Pt sitting up in bed with mother at bedside. Care providers, pharmacy, and demographics verified/updated. Admitting Dx: acute appendicitis PCP:Lyric Weaver NP Specialists:Denies Preferred Pharmacy: [facility] Insurance: [employer] Prescription Benefit: yes LNOK: Jessica Smith, sister Living Arrangements: Pt lives with mother in a single story home with 1 step to enter. Pt reports he is I in ADL's and denies concerns at home. Transportation: Pt drives self and denies concerns with transportation. DME/HHC/SNF: Pt has a cane and walker but does not currently use. Pt denies hx of HHC or SNF stays. Pt states no concerns with going home at time of dc. Pt states no further concerns/needs. CM to follow. Advised pt to ask CM if any further question/concerns/needs arise, voices understanding. Pt Goal: Home Plan: Home
[2022-08-28 13:55] LABS: Bedside Glucose 238 mg/dL (74-106)
[2022-08-28 14:30] VITALS: BP 150/89; PULSE 89; RESP 18; TEMP 36.9; O2SAT 95
[2022-08-28 16:45] LABS: Bedside Glucose 150 mg/dL (74-106)
[2022-08-28 20:08] VITALS: BP 150/86; PULSE 84; RESP 18; TEMP 37.3; O2SAT 93
[2022-08-28] MEDS: Amitriptyline 25 MG Tablet 50 MG PO (22:40)
[2022-08-28] MEDS: Escitalopram Oxalate 20 MG Tablet PO (22:40)
[2022-08-28 23:00] LABS: Bedside Glucose 121 mg/dL (74-106)
[2022-08-29 02:35] VITALS: BP 144/75; PULSE 84; RESP 18; TEMP 36.9; O2SAT 94
[2022-08-29 06:16] LABS: Absolute Lymphocyte Count 1.34 X10^3/uL (0.83-4.51); Basophil# 0.03 X10^3/uL; Basophil% 0.2 % (0-1); Eosinophil# 0.05 X10^3/uL; Eosinophils% 0.4 % (0-5); Hematocrit 44.6 % (40-54); Hemoglobin 15.1 g/dL (13.0-16.5); Lymphocyte # 1.34 X10^3/ul (0.83-4.51); Lymphocyte % 10.4 % (19-41); Mean Corp Hgb Conc 33.9 g/dL (32-36); Mean Corpuscular Hgb 31.4 pg (27.0-32.0); Mean Corpuscular Volume 92.7 fL (80-94); Monocyte# 1.37 X10^3/uL; Monocyte% 10.6 % (0-10); NRBC Flagged by Analyzer 0 % (0-5); Neutrophil # 10.01 X10^3/uL (2.7-7.7); Neutrophil % 77.8 % (47-70); Platelet Count 182 K/mm3 (150-450); RBC Distribution Width CV 13.5 % (11.6-14.6); RBC Distribution Width SD 46.4 fl (35.1-43.9); Red Blood Count 4.81 M/mm3 (4.6-6.2); White Blood Count 12.9 K/mm3 (4.4-11.0)
[2022-08-29 07:05] LABS: Bedside Glucose 118 mg/dL (74-106)
[2022-08-29 08:00] VITALS: BP 140/90; PULSE 87; RESP 16; TEMP 36.9; O2SAT 96
[2022-08-29] MEDS: Losartan Potassium 50 MG Tablet PO (09:27)
--- NOTE | 2022-08-29 09:27 | PCM.PN.SRG ---
Subjective Subjective Patient still with following clears having flatus and had a bowel movement. BECKY serosanguineous Objective Data Objective Data Vital Signs: Vital Signs Temp Pulse Resp BP Pulse Ox O2 Del Method O2 Flow Rate 98.5 F 84 18 144/75 H 94 Nasal Cannula 2 08/29/22 02:35 08/29/22 02:35 08/29/22 02:35 08/29/22 02:35 08/29/22 02:35 08/29/22 03:00 08/29/22 03:00 Oxygen Flow Rate (L/min) 2 Oxygen Delivery Method Nasal Cannula Weight: 218 lb 4.122 oz Body Mass Index (BMI) 33.2 Intake & Output: Intake and Output for Last 24 Hours 08/27/22 08/28/22 08/29/22 23:59 23:59 23:59 Intake Total 6420 / 6920 3857.5 / 4357.5 850 / 850 Output Total 2175 / 2975 3665 / 4565 2410 / 2410 Balance 4245 / 3945 192.5 / -207.5 -1560 / -1560 Lab / Micro Data Result Diagrams: 08/29/22 05:46 08/28/22 09:00 Labs: Laboratory Results - last 24 hr 08/27/22 03:29: Diff Path Review Reviewed 08/28/22 09:00: Differential Comment SCANNED, Diff Path Review May 08/28/22 09:00: Sodium 133 L, Potassium 4.3, Chloride 103, Carbon Dioxide 24.0, Anion Gap 6, BUN 13, Creatinine 0.87, Estim Creat Clear Calc 84.08, Est GFR (MDRD) Af Amer 113, Est GFR (MDRD) Non-Af 94, BUN/Creatinine Ratio 14.9, Glucose 129 H, Calcium 9.1 08/28/22 11:36: POC Glucose 238 H 08/28/22 16:22: POC Glucose 150 H 08/28/22 22:39: POC Glucose 121 H 08/29/22 05:46: WBC 12.9 H, RBC 4.81, Hgb 15.1, Hct 44.6, MCV 92.7, MCH 31.4, MCHC 33.9, RDW Std Deviation 46.4 H, RDW Coeff of Gogo 13.5, Plt Count 182, MPV 11.0, Immature Gran % (Auto) 0.600, Neut % (Auto) 77.8 H, Lymph % (Auto) 10.4 L, [place] % (Auto) 10.6 H, Eos % (Auto) 0.4, Baso % (Auto) 0.2, Absolute Neuts (auto) 10.0 H, Absolute Lymphs (auto) 1.34, Nucleated RBC % 0 08/29/22 06:19: POC Glucose 118 H Micro: Microbiology 08/27/22 07:41 Abs - Abdominal Gram Stain - Final 08/27/22 07:41 Abs - Abdominal Wound Culture - Preliminary Mixed Gram Pos & Gram Neg Org 08/27/22 07:41 Abs - Abdominal Anaerobic Culture - Preliminary Checking for anaerobes, further studies to follow. 08/28/22 08:30 Aspirate - Abdominal Gram Stain - Final Rhythm Strip Rhythm Strip: Sinus Tach Rate: 110 Ectopy: None Physical Exam Const oriented x3 Resp normal respiratory effort Resp Narrative: On 2 L nasal cannula Cardio regular rate GI soft to palpation GI Narrative: BECKY serosanguineous, incisions clean dry and intact and dressed, tender near incisions , no peritoneal signs Assessment & Plan Assessment/Plan (1) Acute appendicitis: (2) Diabetes: (3) S/P laparoscopic appendectomy: PLAN: Plan Diabetic diet patient can restart metformin today. If patient tolerates diet will DC home. EP now serosanguineous we will continue BECKY and have patient follow-up in the office on Thursday. Patient is on IV Zosyn will change to p.o. Augmentin for home. Patient is currently on 2 L nasal cannula we will have the nurses check if we are able to wean down to room air. Patient is normally on CPAP at night however he did not bring his own in. Debbi Cramer M.D. Pager: [phone] [facility] [address] [place] [address], [address] [place] [address] Office: [phone]
--- NOTE | 2022-08-29 09:29 | EX.PCM.DISCH ---
Discharge Instructions Diet Discharge Diet: Light diet - advance as tolerated Activity Discharge Activity: May Drive (If not taking narcotics and not having too much pain that he can slam on the brakes if needed) and May Not Shower (Until BECKY removed) Lifting Restrictions: no lifting >20 lbs x 2 wks, no strenuous exercise for 4 wks Dressing / Incision Call your doctor if your incision/area has: Continuous Slow Oozing, Sudden Increased Bleeding, Increased Pain/ Swelling, Increased Redness, Foul Smelling Discharge and Swelling at the incision site Call your doctor if you observe: Fever of 101 or Higher Change Dressing in: 1 day (Change BECKY dressing daily, record BECKY amount and color and bring log to office appointment) Remove Dressing in: 1 day Cleanse incision/area with: Soap & Water Additional Dressing/Incision Instructions:: Steri-Strips will fall off in 7 to 10 days, if they do not fall off okay to remove after 10 days. Follow Up Care Please Follow Up With: Debbi Cramer MD When: Call the office for a follow-up appointment for Thursday for BECKY removal?bring BECKY log to appointment; after 5 PM and on the weekends call [phone] with any concerns. Test Results: Test results from this visit will be discussed in further detail at your follow-up appointment, if applicable. Discharge Plan Admission Admit Date/Time: 08/28/22 10:22 Attending Provider: Debbi Cramer Primary Care Provider: Lyric Weaver Discharge Orders/Prescriptions Prescriptions: New amoxicillin-pot clavulanate 875-125 mg tablet 1 tab PO Q12H Qty: 14 0RF Continued amitriptyline 50 mg tablet 50 mg PO QHS omeprazole 40 mg capsule,delayed release(DR/EC) 40 mg PO BID aspirin [Adult Aspirin Regimen] 81 mg tablet,delayed release (DR/EC) 81 mg PO DAILY cholecalciferol (vitamin D3) 4,000 unit capsule 4,000 unit capsule 4,000 unit PO DAILY losartan 50 mg tablet 50 mg PO QDAY Qty: 90 3RF metoprolol succinate 25 mg tablet extended release 24 hr 25 mg PO DAILY Qty: 90 3RF Label Comments: HEART/BLOOD PRESSURE escitalopram oxalate 20 mg tablet 20 mg PO QHS Label Comments: anti-depressant metformin 500 MG tablet 500 mg PO DAILY Label Comments: blood sugar gemfibrozil 600 MG tablet 600 mg PO BID Qty: 60 11RF metoprolol succinate 25 mg tablet extended release 24 hr 25 mg PO DAILY Qty: 30 11RF Label Comments: HEART/BLOOD PRESSURE Referrals / Follow Up: Care Physician,No Primary [Non-Staff] - Lyric Weaver SECURITY COMPLIANCE ENGINEER-C [Primary Care Provider] - Disposition Disposition (needs filled in before D/C Order can be placed): Home, Self Care
--- NOTE | 2022-08-29 09:33 | DS.PCM_ITS ---
Providers Date of Admission: 08/28/22 Date of Discharge: 08/29/22 Primary Care Physician: Lyric Weaver, KAYC Reason For Visit: ACUTE APPENDICITIS Diagnosis Discharge Diagnosis (1) Acute perforated appendicitis: Status: Resolved Code(s): K35.32 - Acute appendicitis with perforation, localized peritonitis, and gangrene, without abscess (2) S/P laparoscopic appendectomy: Status: Acute Code(s): Z90.49 - Acquired absence of other specified parts of digestive tract (3) Diabetes: Status: Acute Code(s): E11.9 - Type 2 diabetes mellitus without complications Plan Diabetic diet patient can restart metformin today. If patient tolerates diet will DC home. EP now serosanguineous we will continue BECKY and have patient follow-up in the office on Thursday. Patient is on IV Zosyn will change to p.o. Augmentin for home x 7 days. Patient is currently on 2 L nasal cannula we will have the nurses check if we are able to wean down to room air. Patient is normally on CPAP at night however he did not bring his own in. Debbi Cramer M.D. Pager: [phone] [facility] [address] [place] [address], [address] [place] [address] Office: [phone] Medications at Discharge Home Medications metformin 500 mg tablet 500 mg PO DAILY 10/21/15 gemfibrozil 600 mg tablet 600 mg PO BID #60 tabs 06/18/17 amitriptyline 50 mg tablet 50 mg PO QHS 09/09/17 omeprazole 40 mg capsule,delayed release 40 mg PO BID 09/09/17 escitalopram oxalate 20 mg tablet 20 mg PO QHS 10/17/17 aspirin 81 mg tablet,delayed release (Adult Aspirin Regimen) 81 mg PO DAILY 04/16/18 cholecalciferol (vitamin D3) 100 mcg (4,000 unit) capsule 4,000 unit PO DAILY 07/27/18 losartan 50 mg tablet 50 mg PO QDAY #90 tabs 07/27/18 metoprolol succinate 25 mg tablet,extended release 24 hr 25 mg PO DAILY #90 tabs 07/27/18 metoprolol succinate 25 mg tablet,extended release 24 hr 25 mg PO DAILY #30 tabs 07/29/18 amoxicillin 875 mg-potassium clavulanate 125 mg tablet 1 tab PO Q12H #14 tabs 08/29/22 Hospital Course Operations appendectomy (Laparoscopic-perforated appendicitis with drain placement) Procedures None Summary of Care Provided Minutes Spent on Discharge: 15 Hospital Course: Patient came into the ER for right lower quadrant pain which started 24 hours prior to coming to the ER. CT abdomen pelvis showed acute appendicitis with a white blood count 25. Patient was taken to the OR for laparoscopic appendectomy. Patient's appendix had areas of necrosis that had perforated by the time of surgery. Patient had a 15 [place] BECKY placed. Patient was admitted given clears which he tolerated. Initially patient did have purulent drainage from his BECKY. However with the IV antibiotics it has become more serosanguineous prior to discharge. Patient was diet was advanced to a regular diabetic diet. Patient was DC'd with drain and p.o. Augmentin. Weight / BMI Weight Weight: 218 lb 4.122 oz Body Mass Index (BMI) 33.2 ABG / Lab / Microbiology Data Result Diagrams: 08/29/22 05:46 08/28/22 09:00 Laboratory: Laboratory Results - last 24 hr 08/27/22 03:29: Diff Path Review Reviewed 08/28/22 09:00: Differential Comment SCANNED, Diff Path Review October08/28/22 09:00: Sodium 133 L, Potassium 4.3, Chloride 103, Carbon Dioxide 24.0, Anion Gap 6, BUN 13, Creatinine 0.87, Estim Creat Clear Calc 84.08, Est GFR (MDRD) Af Amer 113, Est GFR (MDRD) Non-Af 94, BUN/Creatinine Ratio 14.9, Glucose 129 H, Calcium 9.1 08/28/22 11:36: POC Glucose 238 H 08/28/22 16:22: POC Glucose 150 H 08/28/22 22:39: POC Glucose 121 H 08/29/22 05:46: WBC 12.9 H, RBC 4.81, Hgb 15.1, Hct 44.6, MCV 92.7, MCH 31.4, MCHC 33.9, RDW Std Deviation 46.4 H, RDW Coeff of Gogo 13.5, Plt Count 182, MPV 11.0, Immature Gran % (Auto) 0.600, Neut % (Auto) 77.8 H, Lymph % (Auto) 10.4 L, [place] % (Auto) 10.6 H, Eos % (Auto) 0.4, Baso % (Auto) 0.2, Absolute Neuts (auto) 10.0 H, Absolute Lymphs (auto) 1.34, Nucleated RBC % 0 08/29/22 06:19: POC Glucose 118 H Microbiology: Microbiology 08/27/22 07:41 Abs - Abdominal Gram Stain - Final 08/27/22 07:41 Abs - Abdominal Wound Culture - Preliminary Mixed Gram Pos & Gram Neg Org 08/27/22 07:41 Abs - Abdominal Anaerobic Culture - Preliminary Checking for anaerobes, further studies to follow. 08/28/22 08:30 Aspirate - Abdominal Gram Stain - Final D/C Instructions Discharge Diet: Light diet - advance as tolerated Call your doctor if your incision/area has: Continuous Slow Oozing, Sudden Increased Bleeding, Increased Pain/ Swelling, Increased Redness, Foul Smelling Discharge and Swelling at the incision site Call your doctor if you observe: Fever of 101 or Higher Cleanse incision/area with: Soap & Water Additional Dressing/Incision Instructions: Steri-Strips will fall off in 7 to 10 days, if they do not fall off okay to remove after 10 days. Please Follow Up With: Debbi Cramer MD When: Call the office for a follow-up appointment for Thursday for BECKY removal?bring BECKY log to appointment; after 5 PM and on the weekends call [phone] with any concerns. Meaningful Use Info Meaningful Use Diagnoses (Choose all that apply): None applicable Discharge Plan Admission Admit Date/Time: 08/28/22 10:22 Attending Provider: Debbi Cramer Primary Care Provider: Lyric Weaver Discharge Orders/Prescriptions Prescriptions: New amoxicillin-pot clavulanate 875-125 mg tablet 1 tab PO Q12H Qty: 14 0RF Continued amitriptyline 50 mg tablet 50 mg PO QHS omeprazole 40 mg capsule,delayed release(DR/EC) 40 mg PO BID aspirin [Adult Aspirin Regimen] 81 mg tablet,delayed release (DR/EC) 81 mg PO DAILY cholecalciferol (vitamin D3) 4,000 unit capsule 4,000 unit capsule 4,000 unit PO DAILY losartan 50 mg tablet 50 mg PO QDAY Qty: 90 3RF metoprolol succinate 25 mg tablet extended release 24 hr 25 mg PO DAILY Qty: 90 3RF Label Comments: HEART/BLOOD PRESSURE escitalopram oxalate 20 mg tablet 20 mg PO QHS Label Comments: anti-depressant metformin 500 MG tablet 500 mg PO DAILY Label Comments: blood sugar gemfibrozil 600 MG tablet 600 mg PO BID Qty: 60 11RF metoprolol succinate 25 mg tablet extended release 24 hr 25 mg PO DAILY Qty: 30 11RF Label Comments: HEART/BLOOD PRESSURE Referrals / Follow Up: Care Physician,No Primary [Non-Staff] - Lyric Weaver CARTOGRAPHIC DRAFTER-C [Primary Care Provider] - Disposition Disposition (needs filled in before D/C Order can be placed): Home, Self Care
[2022-08-29 09:37] LABS: Pathologist Review Reviewed
--- NOTE | 2022-08-29 11:00 | CASEMGMT ---
MAYUR CM: Face to face with pt at bedside. Pt states denies any concerns or dc needs at this time and states he is ready to go home. Plan: return home with family support. Howard Centeno RN CM
[2022-08-29] MEDS: Insulin Glargine-YFGN 100 UNIT/ML Pen 53 UNIT SC (11:21)
[2022-08-29] MEDS: Insulin Lispro 100 UNIT/ML INSULN.PEN SC (11:22)
[2022-08-29 11:50] LABS: Bedside Glucose 231 mg/dL (74-106)
== END 2022-08-29 11:30 | disposition home or self-care (01) | DRG 233 ==
LOC: ED 05:22 → MS3 07:37
PROVIDERS: Admitting Provider Surgery; Emergency Provider Emergency Medicine; PCP Nurse Practitioner Family; Visit Provider Surgery
PROC: 0DTJ4ZZ Resection of Appendix, Percutaneous Endoscopic Approach (ICD-10-PCS; CPT 44970; principal; 2022-08-27 06:30)
DX: K35.32 Acute appendicitis with perforation, localized peritonitis, and gangrene, without abscess (principal); K43.1 Incisional hernia with gangrene; E11.9 Type 2 diabetes mellitus without complications; K43.2 Incisional hernia without obstruction or gangrene; I25.10 Atherosclerotic heart disease of native coronary artery without angina pectoris; E78.5 Hyperlipidemia, unspecified; I10 Essential (primary) hypertension; Z79.84 Long term (current) use of oral hypoglycemic drugs
CPT/HCPCS: 36415; 71045; 74177; 80048; 81001; 82962; 85025; 87070; 87075; 87077; 87186; 87205; 88304; 93005; 94668; 99252; 99284; 99406; J7030; J7120; Q9967; A4216; C1760; G0463; J2405

== ENCOUNTER 2025-04-06 02:09 | Emergency (ER) | payer MEDICARE, SELFPAY ==
[2025-04-06 02:12] VITALS: BP 188/97; PULSE 91; RESP 18; TEMP 36.4; O2SAT 99; BMI 28.8
[2025-04-06] MEDS: hydrOXYzine PAM 25 MG Capsule PO (02:39)
--- NOTE | 2025-04-06 03:32 | EX.ED.DYSGE1 ---
HPI History of Present Illness Chief Complaint: General Illness Informant: patient Narrative Narrative: Patient is 64-year-old male with history of hypertension, hyperlipidemia, arthrosclerosis, GERD, diabetes mellitus and anxiety/depression on escitalopram and amitriptyline along permed. He is presenting today for difficulty sleeping, jitteriness and sweating that started tonight. He states that he ran out of his amitriptyline a few days ago and thinks he is having withdrawal from it. He states has never had symptoms like this before. Notes he has been on the amitriptyline for years. He also notes that he ran out of his blood pressure medicine, losartan. States that he still has his S-Citalopram. He states is prescribed by his primary care office ([facility]). Denies any HI or SI. Denies any chest pain or difficulty breathing. Denies any amphetamine use but does report THC use. Denies any significant alcohol use. Does smoke cigarettes. No other complaints or concerns reported at this time. 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 YE (obstructive sleep apnea) GERD (gastroesophageal reflux disease) TIA (transient ischemic attack) Tobacco use disorder HTN (hypertension) Hyperlipidemia Home Medications ?Medication ?Instructions ?Recorded ?Last Taken ?Type metformin 500 mg tablet 500 mg PO DAILY 10/21/15 11/14/15 04:30 History 500 MG amitriptyline 50 mg tablet 50 mg PO QHS 09/09/17 Unknown History escitalopram oxalate 20 mg tablet 20 mg PO QHS 10/17/17 Unknown History amitriptyline 50 mg tablet 50 mg PO QHS #20 tabs 04/06/25 Unknown Rx losartan 100 mg tablet 100 mg PO DAILY #20 tabs 04/06/25 Unknown Rx Allergy/AdvReac Type Severity Reaction Status Date / Time Sulfa (Sulfonamide Allergy Severe Hives, Verified 04/06/25 02:10 Antibiotics) Sweating, SOB Family History Father CAD (coronary artery disease) Myocardial infarction Hypertension Heart disease Mother Heart disease Atrial arrhythmia Surgical History S/P laparoscopic appendectomy H/O cystoscopy S/P herniorrhaphy history of benign tumor of parotid gland History of brain surgery History of arthroscopy of right knee History of left knee surgery History of lumbar surgery Social History household members: none Smoking Status: Current every day smoker tobacco type: cigarettes alcohol intake: never substance use type: does not use ROS ROS ED Constitutional Constitutional ED: Reports sweats; Denies chills or fever(s) Cardiovascular Cardiovascular: Denies chest pain or palpitations Respiratory/Chest Respiratory/Chest: Denies cough or dyspnea Gastrointestinal Gastrointestinal: Denies abdominal pain or vomiting Musculoskeletal Musculoskeletal: Reports other Details: Cramping, jittery feeling Integumentary Denies rash Neurologic Neurologic: Denies paresthesias or weakness Psychiatric Psychiatric: Reports anxiety; Denies depression EXAM Physical Exam Const Vital Signs: 04/06/25 02:12 04/06/25 02:12 04/06/25 04:05 Temperature 97.6 F L Temperature Source Oral Pulse Rate 91 83 Respiratory Rate 18 16 Respiratory Effort Normal Non-Labored Respiratory Pattern Normal Blood Pressure 188/97 H 179/97 H Blood Pressure Mean 127 124 Pulse Ox 99 99 Oxygen Delivery Method Room Air Room Air 04/06/25 04:05 Temperature 98.9 F Temperature Source Pulse Rate 83 Respiratory Rate 16 Respiratory Effort Respiratory Pattern Blood Pressure 179/97 H Blood Pressure Mean 124 Pulse Ox 99 Oxygen Delivery Method Positive well nourished and well developed Constitutional Narrative: Patient is constantly moving around the bed. Appears uncomfortable secondary to this. General Appearance ED: well developed HEENT Reports moist mucous membranes Eyes PERRL Neck supple Chest Wall inspection of chest normal Resp normal respiratory effort and clear to auscultation bilaterally Cardio regular rate and regular rhythm GI normal to inspection, nondistended, normoactive bowel sounds and non-tender Extremity normal to inspection General Extremety ED: Negative for edema or tenderness General Extremity: Negative for edema Neuro oriented x3 and no sensory deficits noted Neuro Narrative: 2+ patellar reflexes bilaterally. No clonus appreciated. Sensorium / Orientation: alert Motor Exam: strength 5/5 throughout; Negative for general weakness Psych Mood & Affect: anxious; Negative for depressed or tearful Skin no rashes or lesions noted and no wounds MDM MDM MDM Narrative Medical decision making narrative: Patient evaluated for jitteriness and insomnia. He abruptly stopped his amitriptyline a couple days ago. Suspect he is having acute withdrawal with this. Is given a dose of his amitriptyline here as well as a dose of hydroxyzine. Upon arrival patient's vital signs are significant for hypertension but otherwise normal. He denies any chest pain, shortness of breath or difficulty breathing. I do not think this is a hypertensive emergency. Will observe for about an hour to look for signs of improvement. If feeling better will be discharged home with a refill of his amitriptyline as well as his losartan. Encouraged to follow-up with his primary care doctor for further refills. Counseled on avoiding sudden cessation of these medications. He verbalizes agreement understand this plan. Patient otherwise acting appropriate emergency room and I do not think requires any emergent psychiatric evaluation. He does not have any fever or rigidity concerning for serotonin syndrome. At approximately 4 AM patient reevaluated. He clinically is doing much better. Still hypertensive however will be given a refill of his lisinopril in addition to the amitriptyline. Encouraged to follow-up with his family doctor. Given return precautions. Discharged home in stable condition. Discharge Plan Triage Chief Complaint: General Illness ED Provider: Ciera Crawford Dx/Rx/DC Orders Clinical Impression: Antidepressant discontinuation syndrome, Noncompliance with medication regimen, HTN (hypertension) Instructions: ED Drug Reaction, Other, ED Hypertension, Established Prescriptions: New amitriptyline 50 mg tablet 50 mg PO QHS Qty: 20 0RF losartan 100 mg tablet 100 mg PO DAILY Qty: 20 0RF No Action amitriptyline 50 mg tablet 50 mg PO QHS escitalopram oxalate 20 mg tablet 20 mg PO QHS Patient Comments: anti-depressant metformin 500 MG tablet 500 mg PO DAILY Patient Comments: blood sugar Primary Care Provider: Lyric Weaver Referrals: Lyric Weaver NP-C [Primary Care Provider, Internal Medicine] Activity Restrictions/Additional Instructions: Please resume your regular medications. You been given a 20-day supply of your losartan and your amitriptyline to give you time to follow-up with your family doctor and get new prescriptions. If you have progression of symptoms or further concerns please return to the emergency room. Print Language: [place] Disposition Disposition: Home, Self Care
[2025-04-06 04:05] VITALS: BP 179/97; PULSE 83; RESP 16; TEMP 37.2; O2SAT 99
== END 2025-04-06 04:16 | disposition home or self-care (01) ==
PROVIDERS: Emergency Provider Emergency Medicine; PCP Nurse Practitioner Family; Visit Provider Emergency Medicine
DX: G47.00 Insomnia, unspecified (principal); E11.9 Type 2 diabetes mellitus without complications; T43.205A Adverse effect of unspecified antidepressants, initial encounter; Z76.0 Encounter for issue of repeat prescription; Z91.148 Patient's other noncompliance with medication regimen for other reason; I10 Essential (primary) hypertension; F12.90 Cannabis use, unspecified, uncomplicated; Z79.899 Other long term (current) drug therapy; F41.9 Anxiety disorder, unspecified; F17.210 Nicotine dependence, cigarettes, uncomplicated; E78.5 Hyperlipidemia, unspecified; I25.10 Atherosclerotic heart disease of native coronary artery without angina pectoris; K21.9 Gastro-esophageal reflux disease without esophagitis; F32.A Depression, unspecified
CPT/HCPCS: 99283

== ENCOUNTER 2025-04-06 11:24 | Emergency (ER) | payer MEDICARE, SELFPAY ==
[2025-04-06 11:25] VITALS: BP 161/85; PULSE 107; RESP 18; TEMP 36.8; O2SAT 95; BMI 30.4
--- NOTE | 2025-04-06 11:42 | EKG12_ITS ---
Test Reason : CP
--- NOTE | 2025-04-06 11:44 | EX.ED.DYSGE1 ---
HPI History of Present Illness Chief Complaint: Weakness Narrative Narrative: Patient is a 64-year-old male presenting to the emergency department for chest pain. Patient has a past medical history of hypertension, hyperlipidemia, GERD, diabetes, anxiety and depression. Patient is medication noncompliant. Was just here about 8 hours ago for discontinuation of his amitriptyline and presented with difficulty sleeping, jitteriness and sweating. Patient states that he was at his primary care doctor this morning and developed chest pain. Patient states that it is midsternal and feels like someone is sitting on my chest. He endorses a cough which is chronic for him. He does smoke cigarettes and marijuana. He denies any fever, chills, headache, vision changes, shortness of breath, abdominal pain, nausea, vomiting, diarrhea, dysuria or hematuria. Denies any focal numbness or weakness. He was prescribed refills of his medications this morning and states he has not picked them up yet. 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 YE (obstructive sleep apnea) GERD (gastroesophageal reflux disease) TIA (transient ischemic attack) Tobacco use disorder HTN (hypertension) Hyperlipidemia Home Medications ?Medication ?Instructions ?Recorded ?Last Taken ?Type metformin 500 mg tablet 500 mg PO DAILY 10/21/15 11/14/15 04:30 History 500 MG amitriptyline 50 mg tablet 50 mg PO QHS 09/09/17 Unknown History escitalopram oxalate 20 mg tablet 20 mg PO QHS 10/17/17 Unknown History amitriptyline 50 mg tablet 50 mg PO QHS #20 tabs 04/06/25 Unknown Rx losartan 100 mg tablet 100 mg PO DAILY #20 tabs 04/06/25 Unknown Rx Allergy/AdvReac Type Severity Reaction Status Date / Time Sulfa (Sulfonamide Allergy Severe Hives, Verified 04/06/25 02:10 Antibiotics) Sweating, SOB Family History Father CAD (coronary artery disease) Myocardial infarction Hypertension Heart disease Mother Heart disease Atrial arrhythmia Surgical History S/P laparoscopic appendectomy H/O cystoscopy S/P herniorrhaphy history of benign tumor of parotid gland History of brain surgery History of arthroscopy of right knee History of left knee surgery History of lumbar surgery Social History household members: none Smoking Status: Current every day smoker tobacco type: cigarettes alcohol intake: never substance use type: does not use ROS ROS ED ROS Narrative See HPI EXAM Physical Exam Narrative Exam Narrative: Vital signs: Reviewed General: Alert and oriented x 3. No acute distress HEENT: Head is normocephalic and atraumatic, sinuses nontender, pupils equal round and reactive. Nares are patent. Oropharynx and throat exams normal. Neck: Supple without lymphadenopathy nontender Cardiovascular: Regular rate and rhythm, no murmurs. No rubs or gallops. Normal S1 and S2. DP and PT and radial pulses are symmetric throughout. Respiratory: Clear to auscultation bilaterally. No wheezes, rales, rhonchi Abdominal: Soft and nontender. Normal bowel sounds. No guarding or rebound. Nonsurgical abdomen Extremities: No lower extremity edema. No tenderness. No bruising. Normal range of motion. Normal sensation. Skin: No rash or redness. Neurological: Cranial nerves II through XII are grossly intact. Normal strength and sensation. Normal cerebellar function The rest of the physical exam is unremarkable Const Vital Signs: 04/06/25 11:25 04/06/25 11:31 04/06/25 13:25 Temperature 98.3 F Temperature Source Temporal Pulse Rate 107 H 80 Respiratory Rate 18 18 Respiratory Effort Normal Non-Labored Blood Pressure 161/85 H 154/82 H Blood Pressure Mean 110 106 Pulse Ox 95 97 Oxygen Delivery Method Room Air 04/06/25 15:00 04/06/25 15:43 Temperature 98.4 F Temperature Source Pulse Rate 96 70 Respiratory Rate 14 14 Respiratory Effort Blood Pressure 162/66 H 165/102 H Blood Pressure Mean 98 123 Pulse Ox 95 100 Oxygen Delivery Method Room Air MDM MDM MDM Narrative Medical decision making narrative: Patient is a 64-year-old male presenting to emergency department for chest pain. Patient was seen and examined. Vitals are stable. He is mildly tachycardic at 107. Resting bed comfortably no acute distress. Saturating 95% on room air however he is a smoker and this is an appropriate saturation given this history. Differential includes but is not limited to: ACS, pneumonia, viral illness, PE. Exam and vitals not consistent with hypertensive emergency. Patients BP is 161/85, non compliant with medications. Denies headache, visual changes, focal neurologic deficits, shortness of breath, abdominal pain. No confusion or AMS. Alert and orientedx3. EKG shows sinus tachycardia at a rate of 104 with no ischemic changes. No dysrhythmia. CBC with no leukocytosis and hemoglobin is 17.4. BMP with no significant abnormalities. D-dimer is negative. Troponins are 24, downtrending to 22 no significant delta change. Chest x-ray reviewed by myself, no opacities, pneumothorax or wide mediastinum. Radiology read with hyperinflation. Prominence of the central pulmonary arteries suggestive of possible pulmonary hypertension. Patient's heart rate has improved since being here to mid 70s. He was reevaluated and updated on the negative workup. Saturating 100% on room air. Still hypertensive but no evidence of hypertensive emergency on exam. I counseled him on taking his medications at home including his antihypertensives and his amitriptyline and Lexapro. Patient states he will go pick them up now. Patient discharged from the Emergency Department. I do not feel that the patient's evaluation reveals any acute reason for admission at this time. I instructed them to either follow-up with their primary care physician or promptly return to the Emergency Department for reevaluation should symptoms worsen or new symptoms develop. I explained what symptoms would indicate the need to return to the emergency department. Shared decision making was used. The patient voiced understanding of the treatment plan and is agreeable with it. Clinical impression: chest pain Medication noncompliance History & Record Review Discussion w/independent historian: Patient Additional record(s) reviewed:: Prior ED visit and Prior labs Lab Data Attestation: I reviewed the patient's lab results. Labs: Laboratory Results - last 24 hr 04/06/25 04/06/25 11:15 14:26 WBC 10.2 RBC 5.33 Hgb 17.4 H Hct 49.9 MCV 93.6 MCH 32.6 H MCHC 34.9 RDW Std Deviation 44.0 H RDW Coeff of Gogo 12.9 Plt Count 209 MPV 10.8 Immature Gran % (Auto) 0.400 Neut % (Auto) 73.1 H Lymph % (Auto) 17.0 L [place] % (Auto) 8.9 Eos % (Auto) 0.1 Baso % (Auto) 0.5 Absolute Neuts (auto) 7.4 Absolute Lymphs (auto) 1.73 Nucleated RBC % 0 D-Dimer Quant (PE/DVT) 0.27 Sodium 134 Potassium 4.2 Chloride 97 L Carbon Dioxide 24.1 Anion Gap 13 BUN 11 Creatinine 0.72 Estim Creat Clear Calc 99.49 Est GFR (MDRD) Non-Af 101 BUN/Creatinine Ratio 14.9 Glucose 181 H Calcium 10.1 Troponin T High Sens 24 H Troponin T Hi Sens 2 Hr 22 Radiography Diagnostic Testing: Clinical Impression(s) from Imaging Studies Chest X-Ray 04/06/25 12:35 IMPRESSION: Hyperinflation. Prominence of the central pulmonary arteries suggestive of possible pulmonary hypertension. Reading Location: [facility] Discharge Plan Triage Chief Complaint: Weakness ED Provider: Khadijah Seymour Dx/Rx/DC Orders Clinical Impression: Chest pain of uncertain etiology, Noncompliance with medication regimen Instructions: ED Chest Pain, Uncertain Cause Prescriptions: No Action amitriptyline 50 mg tablet 50 mg PO QHS escitalopram oxalate 20 mg tablet 20 mg PO QHS Patient Comments: anti-depressant metformin 500 MG tablet 500 mg PO DAILY Patient Comments: blood sugar amitriptyline 50 mg tablet 50 mg PO QHS Qty: 20 0RF losartan 100 mg tablet 100 mg PO DAILY Qty: 20 0RF Primary Care Provider: Lyric Weaver Referrals: Lyric Weaver, [facility] [Primary Care Provider, Internal Medicine] - As soon as possible Activity Restrictions/Additional Instructions: Please take your medications as prescribed. If you take yourself off them they can cause multiple side effects. Your evaluation in the Emergency Department did not reveal any acute reason for admission. However, I want to emphasize that you may be early in the course of a disease process or illness even if it is not present. For this reason you should follow-up within 24 hours for reevaluation with either your primary care physician or if necessary back here in the Emergency Department. You should return to the Emergency Department immediately if your symptoms worsen or new symptoms develop. Print Language: [place] Disposition Disposition: Home, Self Care Discharge Date/Time: 04/06/25 15:45
[2025-04-06 12:01] LABS: Hematocrit 49.9 % (40-54); Hemoglobin 17.4 g/dL (13.0-16.5); Immature Granulocytes Count 0.040 X10^3/uL (0.0-0.0); Mean Corp Hgb Conc 34.9 g/dL (32-36); Mean Corpuscular Volume 93.6 fL (80-94); Mean Platelet Vol. 10.8 fl (6.2-12.0); NRBC Flagged by Analyzer 0 % (0-5); Platelet Count 209 K/mm3 (150-450); RBC Distribution Width CV 12.9 % (11.6-14.6); RBC Distribution Width SD 44.0 fl (35.1-43.9); Red Blood Count 5.33 M/mm3 (4.6-6.2); White Blood Count 10.2 K/mm3 (4.4-11.0)
[2025-04-06 12:10] LABS: D-Dimer Quantitative (DVT/PE) 0.27 FEU/ug/m (0.27-0.49)
[2025-04-06 12:21] LABS: Anion Gap 13 (5-15); BUN 11 mg/dL (4-19); BUN/Creat Ratio 14.9 RATIO (10-20); Calcium,Total 10.1 mg/dL (7.6-11.0); Carbon Dioxide 24.1 mmol/L (21.0-32.0); Chloride 97 mmol/L (98-108); Estimated Creatinine Clearance 99.49 ml/min (50-250); Glucose 181 mg/dL (70-99); Potassium 4.2 mmol/L (3.3-5.1); Troponin T High Sensitivity 24 ng/L (<=22)
[2025-04-06] MEDS: hydrOXYzine PAM 25 MG Capsule PO (12:34)
--- NOTE | 2025-04-06 12:35 | RAD_ITS ---
PROCEDURE: RAD/Chest PA and Lateral
[2025-04-06 13:25] VITALS: BP 154/82; PULSE 80; RESP 18; O2SAT 97
[2025-04-06 15:00] VITALS: BP 162/66; PULSE 96; RESP 14; O2SAT 95
[2025-04-06 15:04] LABS: Troponin T High Sens 2 HR 22 ng/L (<=22)
[2025-04-06 15:43] VITALS: BP 165/102; PULSE 70; RESP 14; TEMP 36.9; O2SAT 100
== END 2025-04-06 15:45 | disposition home or self-care (01) ==
PROVIDERS: Emergency Provider Student in an Organized Health Care Education/Training Program; PCP Nurse Practitioner Family; Visit Provider Student in an Organized Health Care Education/Training Program
DX: R07.9 Chest pain, unspecified (principal); E11.9 Type 2 diabetes mellitus without complications; F41.9 Anxiety disorder, unspecified; Z91.148 Patient's other noncompliance with medication regimen for other reason; E78.5 Hyperlipidemia, unspecified; I10 Essential (primary) hypertension; I25.10 Atherosclerotic heart disease of native coronary artery without angina pectoris; R53.1 Weakness; F17.210 Nicotine dependence, cigarettes, uncomplicated; K21.9 Gastro-esophageal reflux disease without esophagitis; Z79.899 Other long term (current) drug therapy
CPT/HCPCS: 71046; 80048; 84484; 85025; 85379; 93005; 99285; A4216

== ENCOUNTER 2025-04-09 14:12 | Inpatient (IN) | payer MEDICARE, SELFPAY ==
[2025-04-09] VITALS (10 sets, daily range): BP systolic 140–167; BP diastolic 80–115; PULSE 66–72; RESP 16–23; TEMP 36.6–36.7; O2SAT 94–99; BMI 28.3; BMI 28.6; BMI 27.6
--- NOTE | 2025-04-09 14:17 | EKG12_ITS ---
Test Reason : NEURO
[2025-04-09 14:51] LABS: Hematocrit 46.6 % (40-54); Hemoglobin 16.3 g/dL (13.0-16.5); Immature Granulocytes Count 0.020 X10^3/uL (0.0-0.0); Mean Corp Hgb Conc 35.0 g/dL (32-36); Mean Corpuscular Volume 92.8 fL (80-94); Mean Platelet Vol. 10.3 fl (6.2-12.0); NRBC Flagged by Analyzer 0 % (0-5); Platelet Count 209 K/mm3 (150-450); RBC Distribution Width CV 12.7 % (11.6-14.6); RBC Distribution Width SD 43.2 fl (35.1-43.9); Red Blood Count 5.02 M/mm3 (4.6-6.2); White Blood Count 10.1 K/mm3 (4.4-11.0)
[2025-04-09 15:34] LABS: Anion Gap 13 (5-15); BUN 12 mg/dL (4-19); BUN/Creat Ratio 14.6 RATIO (10-20); Calcium,Total 9.6 mg/dL (7.6-11.0); Carbon Dioxide 22.3 mmol/L (21.0-32.0); Chloride 100 mmol/L (98-108); Estimated Creatinine Clearance 96.15 ml/min (50-250); Glucose 166 mg/dL (70-99); Potassium 4.3 mmol/L (3.3-5.1)
--- NOTE | 2025-04-09 15:50 | CT_ITS ---
PROCEDURE: CT/STROKE Brain/Head without Cont
--- NOTE | 2025-04-09 15:50 | CT_ITS ---
PROCEDURE: CT/STROKE CTA Head AND Neck W/Con
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
--- NOTE | 2025-04-09 16:38 | ED.RN ---
Pt asked to speak with Doctor or nurse about the stuff in my head. This nurse spoke with pt. she asked questions about placement. Asked about the stuff in her head. She stated she did not wish to discuss while sitters were present. They stepped out and she said she was still having thought s of harming self. she said her plan was to leave here and then do it. When asked pt said she was having auditory command hallucinations telling her to kill herself. Explained this is the purpose of sitters being with her to keep her safe
--- NOTE | 2025-04-09 18:54 | ED.RN ---
Pt family member stated that they were concerned that pt has not had a blood glucose test in 4 hours, he hasn't had any medications for his diabetes, he hasn't had anything to eat and his blood pressure is going up. This RN stated that she would notify the pt's RN and the MD. Unable to locate MD at this time, however pt chart up for re-evaluation. Pt's RN notified and states he was aware of the concerns and has already been told these things by the family. This RN educated pt on chart being up for re-eval and that they should be prepared to discuss any and all of their concerns as the MD should be in to discuss the findings of pt's testing.
--- NOTE | 2025-04-09 19:04 | ED.RN ---
ED note from [id number] entered in error
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
[2025-04-09 19:50] LABS: Magnesium 1.8 mg/dL (1.5-2.2)
[2025-04-09 20:21] LABS: Barbiturate Urine NEGATIVE (< 200 ng/mL); Benzodiazepine Urine NEGATIVE (< 200 ng/mL); PCP Urine NEGATIVE (< 25 ng/mL); THC Urine PRESUMPTIVE POSITIVE (< 50 ng/mL)
--- NOTE | 2025-04-09 20:34 | ECHOD_ITS ---
Reason For Study ECHO/Echo Complete
[2025-04-09] MEDS: 0.9% Normal Saline (1000mL) 1,000 ML 100 ML IV (21:55)
--- NOTE | 2025-04-09 22:45 | CPS ---
patient states he does not use a cpap at home and did not want one here.
[2025-04-10] VITALS (9 sets, daily range): BP systolic 148–164; BP diastolic 85–95; PULSE 63–75; RESP 16–18; TEMP 36.3–37; O2SAT 89–98; BMI 27.9
--- NOTE | 2025-04-10 05:55 | MRI_ITS ---
PROCEDURE: MRI/Brain W/WO Contrast
[2025-04-10 06:44] LABS: Hematocrit 44.7 % (40-54); Hemoglobin 15.7 g/dL (13.0-16.5); Immature Granulocytes Count 0.040 X10^3/uL (0.0-0.0); Mean Corp Hgb Conc 35.1 g/dL (32-36); Mean Corpuscular Volume 93.5 fL (80-94); Mean Platelet Vol. 10.7 fl (6.2-12.0); NRBC Flagged by Analyzer 0 % (0-5); Platelet Count 202 K/mm3 (150-450); RBC Distribution Width CV 12.8 % (11.6-14.6); RBC Distribution Width SD 44.3 fl (35.1-43.9); Red Blood Count 4.78 M/mm3 (4.6-6.2); White Blood Count 10.3 K/mm3 (4.4-11.0)
[2025-04-10 07:10] LABS: AST(SGOT) 18 U/L (<=37); Alanine Aminotransfer ALT/SGPT 13 U/L (<=46); Albumin, Serum 4.3 g/dL (3.4-4.8); Alkaline Phosphatase 92 U/L (40-129); Anion Gap 11 (5-15); BUN 12 mg/dL (4-19); BUN/Creat Ratio 16.6 RATIO (10-20); Calcium,Total 9.3 mg/dL (7.6-11.0); Carbon Dioxide 23.2 mmol/L (21.0-32.0); Chloride 102 mmol/L (98-108); Cholesterol 236 mg/dL (<=200); Estimated Creatinine Clearance 95.07 ml/min (50-250); Globulin 2.5 g/dL (2.2-4.2); Glucose 129 mg/dL (70-99); Low Density Lipoprotein Calc. 175 mg/dL; Potassium 4.2 mmol/L (3.3-5.1); Triglycerides 117 mg/dL; Very Low Density Lipoprotein 23 mg/dL (5-40); cholesterol:hdl ratio screen 5.91
--- NOTE | 2025-04-10 07:54 | PN.HOSP_ITS ---
Reason for Visit
--- NOTE | 2025-04-10 07:54 | PCM.PN.HOSP ---
Reason for Visit Chief Complaint: Confusion, double vision, altered speech. Subjective Subjective Patient is a 64-year-old gentleman with past medical history signal for CVA, history of meningioma status post resection who presented to the emergency department with diplopia and ataxia as well as confusion admitted to a monitored bed for workup of suspected CVA Objective Data Objective Data Vital Signs: Vital Signs Temp Pulse Resp BP Pulse Ox O2 Del Method O2 Flow Rate 98.6 F 63 18 160/90 H 94 Nasal Cannula 2 04/10/25 04:01 04/10/25 04:01 04/10/25 04:01 04/10/25 04:01 04/10/25 04:01 04/10/25 04:01 04/10/25 04:01 Oxygen Flow Rate (L/min) 2 Oxygen Delivery Method Nasal Cannula Weight: 83.416 kg Body Mass Index (BMI) 27.9 Intake & Output: Intake and Output for Last 24 Hours 04/08/25 04/09/25 04/10/25 23:59 22:59 23:59 Intake Total 240 / 240 811.67 / 811.67 Balance 240 / 240 811.67 / 811.67 Lab / Micro Data 04/10/25 06:07 04/10/25 06:07 Labs: Laboratory Results - last 24 hr 04/09/25 14:14: POC Glucose 150 H 04/09/25 14:38: WBC 10.1, RBC 5.02, Hgb 16.3, Hct 46.6, MCV 92.8, MCH 32.5 H, MCHC 35.0, RDW Std Deviation 43.2, RDW Coeff of Gogo 12.7, Plt Count 209, MPV 10.3, Immature Gran % (Auto) 0.200, Neut % (Auto) 71.5 H, Lymph % (Auto) 20.1, [place] % (Auto) 7.6, Eos % (Auto) 0.1, Baso % (Auto) 0.5, Absolute Neuts (auto) 7.2, Absolute Lymphs (auto) 2.04, Nucleated RBC % 0, Sodium 135, Potassium 4.3, Chloride 100, Carbon Dioxide 22.3, Anion Gap 13, BUN 12, Creatinine 0.80, Estim Creat Clear Calc 96.15, Est GFR (MDRD) Non-Af 98, BUN/Creatinine Ratio 14.6, Glucose 166 H, Calcium 9.6, Magnesium 1.8 04/09/25 19:00: Urine Opiates Screen NEGATIVE, U Buprenorphine Qual NEGATIVE, Ur Oxycodone Screen NEGATIVE, Urine Methadone Screen NEGATIVE, Urine Fentanyl Screen NEGATIVE, Ur Barbiturates Screen NEGATIVE, Ur Phencyclidine Scrn NEGATIVE, Ur Amphetamines Screen NEGATIVE, U Benzodiazepines Scrn NEGATIVE, Urine Cocaine Screen NEGATIVE, U Cannabinoids Screen PRESUMPTIVE POSITIVE 04/09/25 20:50: POC Glucose 139 H 04/10/25 05:52: POC Glucose 127 H 04/10/25 06:07: WBC 10.3, RBC 4.78, Hgb 15.7, Hct 44.7, MCV 93.5, MCH 32.8 H, MCHC 35.1, RDW Std Deviation 44.3 H, RDW Coeff of Gogo 12.8, Plt Count 202, MPV 10.7, Immature Gran % (Auto) 0.400, Neut % (Auto) 61.2, Lymph % (Auto) 27.8, [place] % (Auto) 9.4, Eos % (Auto) 0.6, Baso % (Auto) 0.6, Absolute Neuts (auto) 6.3, Absolute Lymphs (auto) 2.85, Nucleated RBC % 0, Sodium 136, Potassium 4.2, Chloride 102, Carbon Dioxide 23.2, Anion Gap 11, BUN 12, Creatinine 0.75, Estim Creat Clear Calc 95.07, Est GFR (MDRD) Non-Af 100, BUN/Creatinine Ratio 16.6, Glucose 129 H, Hemoglobin A1c 7.4 H, Calcium 9.3, Total Bilirubin 0.65, AST 18, ALT 13, Alkaline Phosphatase 92, Total Protein 6.8, Albumin 4.3, Globulin 2.5, Albumin/Globulin Ratio 1.7, Triglycerides 117, Cholesterol 236 H, LDL Cholesterol, Calc 175, VLDL Cholesterol 23, HDL Cholesterol 40, Cholesterol/HDL Ratio 5.91, TSH 2.010 Radiography Diagnostic Testing: Radiology Impression Brain CT 04/09/25 15:50 IMPRESSION: Evidence of previous episodes of cerebrovascular accidents. No evidence of acute stroke Reading [facility] Head/Neck CTA 04/09/25 15:50 IMPRESSION: 1. Incidental left parotid lesion measuring 13 mm. Ultrasound is recommended. 2. No large vessel occlusion in the head or neck. No common carotid artery or cervical ICA stenosis identified. Reading Location: [facility] Physical Exam Narrative GENERAL: Patient in no apparent distress oriented to place and person HEENT: Atraumatic; normocephalic EYES; Anicteric, Normal Conjunctiva NECK; supple, normal thyroid, RESPIRATORY: Diminished to auscultation CARDIOVASCULAR: Regular S1 S2, GI: soft, normoactive bowel sounds, : No Renal angle tenderness; EXTREMITIES: No edema, no clubbing, MUSCULOSKELETAL: no muscle wasting NEURO: Awake; no lateralizing signs. SKIN: No Rash PSYCH; Flat affect Assessment & Plan Assessment/Plan (1) Diplopia: (2) Ataxia: PLAN: Plan Patient is a 64-year-old gentleman with past medical history signal for CVA, history of meningioma status post resection who presented to the emergency department with diplopia and ataxia as well as confusion admitted to a monitored bed for workup of suspected CVA 1. Suspected CVA ? Patient presented with multiple symptoms including disorientation diplopia ataxia. Admitted to a monitored bed ordered every 4 neurochecks. As part of his management 2D echo lipid panel MRI ordered for subsequent eval consult placed to [facility] 2. History of meningioma ? Status post resection 3. Essential hypertension ? Following permissive hypertensive protocol 4. Dyslipidemia ? Patient was found to have elevated cholesterol of 236 and LDL of 175 patient started on atorvastatin 5. Diabetes mellitus type II -patient's oral hypoglycemics held. Placed on long acting insulin, Accu-Cheks a.c. and at bedtime and covered with sliding scale insulin 6. Depression with anxiety ? Patient is on escitalopram continue 7. Tobacco dependence ? Counseled on cessation, offered nicotine patch for tobacco cravings 8. DVT prophylaxis ? On enoxaparin Time spent in the patient's overall evaluation,decision-making process, review of diagnostic data, adjustment of management, discussion with other providers, nursing nursing and ancillary staff involved in patient's care documentation, 38 Minutes Charges/Coding Visit Charges Inpatient E&M: 86075 Subs Hosp L2 NIHSS NIHSS Nursing Documentation NIHSS Nursing Documentation: NIH Stroke Scale Start: 04/09/25 16:20 Freq: Status: Discharge Protocol: Activity Type Activity Date Activity User E-sign Co-sign Detail Recorded Client Recorded Date Recorded By Document 04/09/25 14:15 ET [id number] 04/09/25 16:21 ET 04/09/25 14:15 NIH Stroke Scale [NIHSS] A score of 0 is normal or asymptomatic . Total possible score is 42. Inpatient: RN or Physician to activate a stroke alert for onset of new stroke symptoms or with NIHSS increase >/= 3 points. Following change in neurological status, NIHSS will be performed per physician order or more frequently PRN. -1a. Level of Consciousness 0 - Alert; keenly responsive -1b. LOC Questions 0 - Answers BOTH questions correctly -1c. LOC Commands 0 - Performs BOTH tasks correctly -2. Best Gaze 0 - Normal -3. Visual 0 - No visual loss -4. Facial Palsy 0 - Normal symmetrical movements -5a. Left Arm 0 - No drift; arm holds 90 ( or 45) degrees for full 10 seconds -5b. Right Arm 0 - No drift; arm holds 90 ( or 45) degrees for full 10 seconds -6a. Left Leg 0 - No drift; leg holds 30- degree position for full 5 seconds -6b. Right Leg 0 - No drift; leg holds 30- degree position for full 5 seconds -7. Limb Ataxia 1 - Present in 1 limb -8. Sensory 0 - Normal; no sensory loss -9. Best Language 0 - No aphasia; normal -10. Dysarthria 1 = Mild-to- moderate dysarthria; -11. Extinction and Inattention 0 - No abnormality -Total 2 Query Text:A score of 0 is normal or asymptomatic. Total possible score is 42 . ED: Notify Physician for NIHSS increase by > / = 3 points. Inpatient: RN or Physician to activate a stroke alert for NIHSS increase of > / = 3 points. NIHSS: Ischemic Stroke/TIA Start: 04/09/25 20:34 Text: For PCU Patients: NIH and Neuro Check every 4 Status: Active hours, PRN and with change in RN caregiver. Freq: [id number] Protocol: Activity Type Activity Date Activity User E-sign Co-sign Detail Recorded Client Recorded Date Recorded By Document 04/10/25 04:02 AML [id number] 04/10/25 04:03 AML 04/10/25 04:02 -1a. Level of Consciousness 0 - Alert; keenly responsive -1b. LOC Questions 1 - Answers ONE question correctly -1c. LOC Commands 0 - Performs BOTH tasks correctly -2. Best Gaze 0 - Normal -3. Visual 0 - No visual loss -4. Facial Palsy 0 - Normal symmetrical movements -5a. Left Arm 0 - No drift; arm holds 90 ( or 45) degrees for full 10 seconds -5b. Right Arm 0 - No drift; arm holds 90 ( or 45) degrees for full 10 seconds -6a. Left Leg 0 - No drift; leg holds 30- degree position for full 5 seconds -6b. Right Leg 0 - No drift; leg holds 30- degree position for full 5 seconds -7. Limb Ataxia 0 - Absent -8. Sensory 0 - Normal; no sensory loss -9. Best Language 0 - No aphasia; normal -10. Dysarthria 1 = Mild-to- moderate dysarthria; -11. Extinction and Inattention 0 - No abnormality -Total 2 Query Text:A score of 0 is normal or asymptomatic. Total possible score is 42 . ED: Notify Physician for NIHSS increase by > / = 3 points. Inpatient: RN or Physician to activate a stroke alert for NIHSS increase of > / = 3 points. Coma Scale [Assess] -Eye Opening Spontaneous -Motor Obeys Commands -Verbal Oriented [Total] -Coma Scale Total 15
[2025-04-10] MEDS: FLU VACCINE HIGH DOSE 25-26(65YR UP) 180 MCG/0.5 ML SYRINGE IM (10:22)
[2025-04-10] MEDS: Nicotine (PBKC) 21 MG Patch TD (10:23)
--- NOTE | 2025-04-10 11:34 | CON.PCM.NE_ITS ---
Assessment and Plan: Neuro
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
--- NOTE | 2025-04-10 14:50 | CASEMGMT ---
Social Work Pt completed PHQ-9 w/SW as pt may have had a stroke. Pt scored a 4, and does seem to have mild symptoms of depression. Pt does feel that his depressive symptoms are related to his health. Pt states does have anxiety and takes medications for it. Pt has not been in counseling in the past, may consider it. SW provided to pt a list of mental health providers in the area should pt want to explore counseling. SW also encouraged pt to speak to his physician should have an increase in depressive symptoms. Pt receptive to the list of resources. SW also assisted pt in completing POA for Healthcare and LW w/SW, named his daughter Lyn as POA for HC. SW gave pt originals and a copy, and a copy was placed on the chart. MICHELET Bowman
[2025-04-10 15:21] LABS: Vitamin B12 484 pg/mL (180-914)
--- NOTE | 2025-04-10 16:18 | CASEMGMT ---
YOUNG Met with patient to complete YOUNG form. YOUNG form and its content were verbally explained and patient's questions were answered to the best of my ability.? Patient voiced understanding and signed YOUNG form.? Patient provided a copy of signed YOUNG form and original placed in patient's chart.? Patient had no further questions. Lashawn Garcia, Discharge Planning Asst
[2025-04-10 16:19] LABS: Ammonia 30.5 umol/L (16-60)
--- NOTE | 2025-04-10 16:36 | PCM.DC.SUM ---
Providers Date of Admission: 04/09/25 Primary Care Physician: Dr. Padmini Barth, DO Consultations 04/09/25 20:34 Consult: Tele-Neurology Routine Consulting Provider: [facility] Reason for Consult: Acute Ischemic Stroke/TIA EMERGENT Consult: No MD Notified: Yes Date Notified: 04/09/25 Time Notified: 21:24 Method of Notification: Answering Service Nursing Unit Staff Notify [facility] of Tele-Neurology Consult: Yes Reason For Visit: TIA/CVA Diagnosis Discharge Diagnosis (1) Diplopia: Status: Acute Code(s): H53.2 - Diplopia (2) Ataxia: Status: Acute Code(s): R27.0 - Ataxia, unspecified Plan Patient is a 64-year-old gentleman with past medical history signal for CVA, history of meningioma status post resection who presented to the emergency department with diplopia and ataxia as well as confusion admitted to a monitored bed for workup of suspected CVA 1. Suspected CVA ? Patient presented with multiple symptoms including disorientation diplopia ataxia. Admitted to a monitored bed ordered every 4 neurochecks. As part of his management 2D echo lipid panel MRI ordered for subsequent eval consult placed to [facility] 2. History of meningioma ? Status post resection 3. Essential hypertension ? Following permissive hypertensive protocol 4. Dyslipidemia ? Patient was found to have elevated cholesterol of 236 and LDL of 175 patient started on atorvastatin 5. Diabetes mellitus type II -patient's oral hypoglycemics held. Placed on long acting insulin, Accu-Cheks a.c. and at bedtime and covered with sliding scale insulin 6. Depression with anxiety ? Patient is on escitalopram continue 7. Tobacco dependence ? Counseled on cessation, offered nicotine patch for tobacco cravings 8. DVT prophylaxis ? On enoxaparin Time spent in the patient's overall evaluation,decision-making process, review of diagnostic data, adjustment of management, discussion with other providers, nursing nursing and ancillary staff involved in patient's care documentation, 38 Minutes Medications at Discharge Home Medications metformin 500 mg tablet 500 mg PO DAILY 10/21/15 amitriptyline 50 mg tablet 50 mg PO QHS 09/09/17 escitalopram oxalate 20 mg tablet 20 mg PO QHS 10/17/17 amitriptyline 50 mg tablet 50 mg PO QHS #20 tabs 04/06/25 losartan 100 mg tablet 100 mg PO DAILY #20 tabs 04/06/25 amlodipine 5 mg tablet 5 mg PO DAILY #90 tabs 04/10/25 atorvastatin 40 mg tablet (Lipitor) 40 mg PO QHS #90 tabs 04/10/25 Physical Exam Narrative GENERAL: Patient in no apparent distress oriented to place and person HEENT: Atraumatic; normocephalic EYES; Anicteric, Normal Conjunctiva NECK; supple, normal thyroid, RESPIRATORY: Diminished to auscultation CARDIOVASCULAR: Regular S1 S2, GI: soft, normoactive bowel sounds, : No Renal angle tenderness; EXTREMITIES: No edema, no clubbing, MUSCULOSKELETAL: no muscle wasting NEURO: Awake; no lateralizing signs. SKIN: No Rash PSYCH; Flat affect Weight / BMI Weight Weight: 83.4 kg Body Mass Index (BMI) 27.9 ABG / Lab / Microbiology Data 04/10/25 06:07 04/10/25 06:07 Laboratory: Laboratory Results - last 24 hr 04/09/25 14:38: Magnesium 1.8 04/09/25 19:00: Urine Opiates Screen NEGATIVE, U Buprenorphine Qual NEGATIVE, Ur Oxycodone Screen NEGATIVE, Urine Methadone Screen NEGATIVE, Urine Fentanyl Screen NEGATIVE, Ur Barbiturates Screen NEGATIVE, Ur Phencyclidine Scrn NEGATIVE, Ur Amphetamines Screen NEGATIVE, U Benzodiazepines Scrn NEGATIVE, Urine Cocaine Screen NEGATIVE, U Cannabinoids Screen PRESUMPTIVE POSITIVE 04/09/25 20:50: POC Glucose 139 H 04/10/25 05:52: POC Glucose 127 H 04/10/25 06:07: WBC 10.3, RBC 4.78, Hgb 15.7, Hct 44.7, MCV 93.5, MCH 32.8 H, MCHC 35.1, RDW Std Deviation 44.3 H, RDW Coeff of Gogo 12.8, Plt Count 202, MPV 10.7, Immature Gran % (Auto) 0.400, Neut % (Auto) 61.2, Lymph % (Auto) 27.8, [place] % (Auto) 9.4, Eos % (Auto) 0.6, Baso % (Auto) 0.6, Absolute Neuts (auto) 6.3, Absolute Lymphs (auto) 2.85, Nucleated RBC % 0, Sodium 136, Potassium 4.2, Chloride 102, Carbon Dioxide 23.2, Anion Gap 11, BUN 12, Creatinine 0.75, Estim Creat Clear Calc 95.07, Est GFR (MDRD) Non-Af 100, BUN/Creatinine Ratio 16.6, Glucose 129 H, Hemoglobin A1c 7.4 H, Calcium 9.3, Total Bilirubin 0.65, AST 18, ALT 13, Alkaline Phosphatase 92, Total Protein 6.8, Albumin 4.3, Globulin 2.5, Albumin/Globulin Ratio 1.7, Triglycerides 117, Cholesterol 236 H, LDL Cholesterol, Calc 175, VLDL Cholesterol 23, HDL Cholesterol 40, Cholesterol/HDL Ratio 5.91, Vitamin B12 484, TSH 2.010 04/10/25 12:16: POC Glucose 154 H 04/10/25 14:44: Ammonia 30.5 Radiography Diagnostic Testing: Radiology Impression Head/Neck CTA 04/09/25 15:50 IMPRESSION: 1. Incidental left parotid lesion measuring 13 mm. Ultrasound is recommended. 2. No large vessel occlusion in the head or neck. No common carotid artery or cervical ICA stenosis identified. Reading Location: [facility] Echocardiogram 04/09/25 20:34 Interpretation Summary The left ventricular ejection fraction is 50 %. Stage 1 diastolic dysfunction. Mild segmental systolic dysfunction (see wall motion). Mild concentric left ventricular hypertrophy. There is Mild focal posterior mitral annular calcification. Aortic sclerosis, no stenosis. Mild (1+) aortic valve insufficiency. Ordering Physician: Joselyn Cano Referring Physician: Padmini Barth M.D. Performed By: Lissy Baker RDCS D/C Instructions Discharge Activity: Return to Normal Activity Call your doctor if you observe: Fever of 101 or Higher, Shortness of breath, Fainting spells and Chest pain Discharge Plan Admission Admit Date/Time: 04/09/25 19:17 Attending Provider: Michael Peraza Primary Care Provider: Padmini Barth Consulting Providers: Earl Fountain; Abraham Encinas; Marisabel Fox; Karina Enriquez; Renee Osborne; Tucker Soliman; Anya Skaggs; Merrill Conte; Jeff Pritchett; Jax Siddiqui; Yadira Schulz; Hilda Escudero; Corky Freire; Nesha Perez; Spencer Bowman; Angy Saleh; Bakari iLmon; Cristopher Moraes; Faraz Howell; Tiffany Szymanski; Alida Fortune; Joselyn Cano Discharge Orders/Prescriptions Prescriptions: New amlodipine 5 mg tablet 5 mg PO DAILY Qty: 90 0RF atorvastatin [Lipitor] 40 mg tablet 40 mg PO QHS Qty: 90 0RF Continued amitriptyline 50 mg tablet 50 mg PO QHS escitalopram oxalate 20 mg tablet 20 mg PO QHS Patient Comments: anti-depressant metformin 500 MG tablet 500 mg PO DAILY Patient Comments: blood sugar amitriptyline 50 mg tablet 50 mg PO QHS Qty: 20 0RF losartan 100 mg tablet 100 mg PO DAILY Qty: 20 0RF Referrals / Follow Up: Padmini Barth DO [Primary Care Provider, Internal Medicine] - Within 1 Week Lyric Weaver NP-C [Med Staff - [facility] Practice Prof, Internal Medicine] Disposition Disposition (needs filled in before D/C Order can be placed): Home, Self Care
[2025-04-10] MEDS: 0.9% Saline Lock 10 ML Syringe IV (22:09)
[2025-04-10] MEDS: MELATONIN 3 MG TABLET PO (23:37)
[2025-04-11 03:00] VITALS: PULSE 69
[2025-04-11 03:06] VITALS: BMI 27.6
[2025-04-11 03:26] VITALS: BP 162/83; PULSE 72; RESP 19; TEMP 36.8; O2SAT 93
[2025-04-11 06:32] LABS: Hematocrit 44.9 % (40-54); Hemoglobin 15.9 g/dL (13.0-16.5); Immature Granulocytes Count 0.020 X10^3/uL (0.0-0.0); Mean Corp Hgb Conc 35.4 g/dL (32-36); Mean Corpuscular Volume 93.0 fL (80-94); Mean Platelet Vol. 10.5 fl (6.2-12.0); NRBC Flagged by Analyzer 0 % (0-5); Platelet Count 175 K/mm3 (150-450); RBC Distribution Width CV 12.6 % (11.6-14.6); RBC Distribution Width SD 42.8 fl (35.1-43.9); Red Blood Count 4.83 M/mm3 (4.6-6.2); White Blood Count 8.2 K/mm3 (4.4-11.0)
[2025-04-11 06:39] VITALS: O2SAT 93
[2025-04-11 07:00] LABS: Anion Gap 11 (5-15); BUN 14 mg/dL (4-19); BUN/Creat Ratio 18.8 RATIO (10-20); Calcium,Total 9.2 mg/dL (7.6-11.0); Carbon Dioxide 23.0 mmol/L (21.0-32.0); Chloride 101 mmol/L (98-108); Estimated Creatinine Clearance 95.17 ml/min (50-250); Glucose 151 mg/dL (70-99); Magnesium 2.1 mg/dL (1.5-2.2); Potassium 3.9 mmol/L (3.3-5.1)
--- NOTE | 2025-04-11 07:47 | PN.HOSP_ITS ---
Reason for Visit
--- NOTE | 2025-04-11 07:47 | PCM.PN.HOSP ---
Reason for Visit Chief Complaint: Confusion, double vision, altered speech. Subjective Subjective Patient's MRI MRI ordered did show Two acute lacunar infarcts involving the bilateral thalamic nuclei. Had a discussion with patient's sister the day prior regarding patient's living condition. Plan is for patient to be transferred to fdc facility for rehab prior to going home given his frequent visits to the ED Objective Data Objective Data Vital Signs: Vital Signs Temp Pulse Resp BP Pulse Ox O2 Del Method O2 Flow Rate 98.2 F 72 19 H 162/83 H 93 Room Air 1 04/11/25 03:26 04/11/25 03:26 04/11/25 03:26 04/11/25 03:26 04/11/25 03:26 04/11/25 03:30 04/10/25 07:57 Oxygen Flow Rate (L/min) 1 Oxygen Delivery Method Room Air Weight: 82.6 kg Body Mass Index (BMI) 27.6 Intake & Output: Intake and Output for Last 24 Hours 04/09/25 04/10/25 04/11/25 22:59 23:59 23:59 Intake Total 240 / 240 1561.67 / 1561.67 Balance 240 / 240 1561.67 / 1561.67 Lab / Micro Data 04/11/25 06:10 04/11/25 06:10 Labs: Laboratory Results - last 24 hr 04/10/25 06:07: Vitamin B12 484 04/10/25 12:16: POC Glucose 154 H 04/10/25 14:44: Ammonia 30.5 04/10/25 16:22: POC Glucose 244 H 04/10/25 22:05: POC Glucose 109 H 04/11/25 06:10: WBC 8.2, RBC 4.83, Hgb 15.9, Hct 44.9, MCV 93.0, MCH 32.9 H, MCHC 35.4, RDW Std Deviation 42.8, RDW Coeff of Gogo 12.6, Plt Count 175, MPV 10.5, Immature Gran % (Auto) 0.200, Neut % (Auto) 65.3, Lymph % (Auto) 21.8, [place] % (Auto) 11.5 H, Eos % (Auto) 0.5, Baso % (Auto) 0.7, Absolute Neuts (auto) 5.3, Absolute Lymphs (auto) 1.78, Nucleated RBC % 0, Sodium 135, Potassium 3.9, Chloride 101, Carbon Dioxide 23.0, Anion Gap 11, BUN 14, Creatinine 0.72, Estim Creat Clear Calc 95.17, Est GFR (MDRD) Non-Af 101, BUN/Creatinine Ratio 18.8, Glucose 151 H, Calcium 9.2, Phosphorus 3.7, Magnesium 2.1 04/11/25 06:43: POC Glucose 151 H Radiography Diagnostic Testing: Radiology Impression Echocardiogram 04/09/25 20:34 Interpretation Summary The left ventricular ejection fraction is 50 %. Stage 1 diastolic dysfunction. Mild segmental systolic dysfunction (see wall motion). Mild concentric left ventricular hypertrophy. There is Mild focal posterior mitral annular calcification. Aortic sclerosis, no stenosis. Mild (1+) aortic valve insufficiency. Ordering Physician: Joselyn Cano Referring Physician: Padmini Barth M.D. Performed By: Lissy Baker RDCS Brain MRI 04/10/25 05:55 IMPRESSION: 1. Two acute lacunar infarcts involving the bilateral thalamic nuclei. 2. Moderate parenchymal volume loss and chronic small-vessel ischemic changes elsewhere, with numerous scattered old lacunar infarcts in the cota radiata and bilateral basal ganglia. 3. Postoperative changes of right temporal craniotomy and reported meningioma resection. No residual/recurrent tumor. 4. 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 Reading Location: [facility] Physical Exam Narrative GENERAL: Somewhat dysarthric HEENT: Atraumatic; normocephalic EYES; Anicteric, Normal Conjunctiva NECK; supple, normal thyroid, RESPIRATORY: Diminished to auscultation CARDIOVASCULAR: Regular S1 S2, GI: soft, normoactive bowel sounds, : No Renal angle tenderness; EXTREMITIES: No edema, no clubbing, MUSCULOSKELETAL: no muscle wasting NEURO: Awake; no lateralizing signs. SKIN: No Rash PSYCH; Flat affect Assessment & Plan Assessment/Plan (1) Diplopia: (2) Ataxia: PLAN: Plan Patient is a 64-year-old gentleman with past medical history signal for CVA, history of meningioma status post resection who presented to the emergency department with diplopia and ataxia as well as confusion admitted to a monitored bed for workup of suspected CVA 1. Acute CVA ? Patient presented with multiple symptoms including disorientation diplopia ataxia. Admitted to a monitored bed ordered every 4 neurochecks. As part of his management 2D echo lipid panel MRI ordered for subsequent eval consult placed to [facility] 04/11/2025; MRI ordered did show Two acute lacunar infarcts involving the bilateral thalamic nuclei. Moderate parenchymal volume loss and chronic small-vessel ischemic changes elsewhere, with numerous scattered old lacunar infarcts in the cota radiata and bilateral basal ganglia.. Postoperative changes of right temporal craniotomy and reported meningioma resection. No residual/recurrent tumor. 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 Subsequently requested for PT OT eval, speech therapy and social work associate to assist with discharge planning. Did discuss with patient's family?sister about patient being discharged to a fdc facility when medically stable ? 2D echo did show ;The left ventricular ejection fraction is 50 %. Stage 1 diastolic dysfunction. Mild segmental systolic dysfunction (see wall motion).Mild concentric left ventricular hypertrophy. There is Mild focal posterior mitral annular calcification. Aortic sclerosis, no stenosis. Mild (1+) aortic valve insufficiency. 2. History of meningioma ? Status post resection 3. Essential hypertension ? Following permissive hypertensive protocol 4. Dyslipidemia ? Patient was found to have elevated cholesterol of 236 and LDL of 175 patient started on atorvastatin 5. Diabetes mellitus type II -patient's oral hypoglycemics held. Placed on long acting insulin, Accu-Cheks a.c. and at bedtime and covered with sliding scale insulin 6. Depression with anxiety ? Patient is on escitalopram continue 7. Tobacco dependence ? Counseled on cessation, offered nicotine patch for tobacco cravings 8. DVT prophylaxis ? On enoxaparin Time spent in the patient's overall evaluation,decision-making process, review of diagnostic data, adjustment of management, discussion with other providers, nursing nursing and ancillary staff involved in patient's care documentation, 36 Minutes Charges/Coding Visit Charges Inpatient E&M: 20003 Subs Hosp L2 NIHSS NIHSS Nursing Documentation NIHSS Nursing Documentation: NIH Stroke Scale Start: 04/09/25 16:20 Freq: Status: Discharge Protocol: Activity Type Activity Date Activity User E-sign Co-sign Detail Recorded Client Recorded Date Recorded By Document 04/09/25 14:15 ET [id number] 04/09/25 16:21 ET 04/09/25 14:15 NIH Stroke Scale [NIHSS] A score of 0 is normal or asymptomatic . Total possible score is 42. Inpatient: RN or Physician to activate a stroke alert for onset of new stroke symptoms or with NIHSS increase >/= 3 points. Following change in neurological status, NIHSS will be performed per physician order or more frequently PRN. -1a. Level of Consciousness 0 - Alert; keenly responsive -1b. LOC Questions 0 - Answers BOTH questions correctly -1c. LOC Commands 0 - Performs BOTH tasks correctly -2. Best Gaze 0 - Normal -3. Visual 0 - No visual loss -4. Facial Palsy 0 - Normal symmetrical movements -5a. Left Arm 0 - No drift; arm holds 90 ( or 45) degrees for full 10 seconds -5b. Right Arm 0 - No drift; arm holds 90 ( or 45) degrees for full 10 seconds -6a. Left Leg 0 - No drift; leg holds 30- degree position for full 5 seconds -6b. Right Leg 0 - No drift; leg holds 30- degree position for full 5 seconds -7. Limb Ataxia 1 - Present in 1 limb -8. Sensory 0 - Normal; no sensory loss -9. Best Language 0 - No aphasia; normal -10. Dysarthria 1 = Mild-to- moderate dysarthria; -11. Extinction and Inattention 0 - No abnormality -Total 2 Query Text:A score of 0 is normal or asymptomatic. Total possible score is 42 . ED: Notify Physician for NIHSS increase by > / = 3 points. Inpatient: RN or Physician to activate a stroke alert for NIHSS increase of > / = 3 points. NIHSS: Ischemic Stroke/TIA Start: 04/09/25 20:34 Text: For PCU Patients: NIH and Neuro Check every 4 Status: Active hours, PRN and with change in RN caregiver. Freq: [id number] Protocol: Activity Type Activity Date Activity User E-sign Co-sign Detail Recorded Client Recorded Date Recorded By Document 04/11/25 03:26 [id number] 04/11/25 03:30 04/11/25 03:26 -1a. Level of Consciousness 0 - Alert; keenly responsive -1b. LOC Questions 0 - Answers BOTH questions correctly -1c. LOC Commands 0 - Performs BOTH tasks correctly -2. Best Gaze 0 - Normal -3. Visual 0 - No visual loss -4. Facial Palsy 0 - Normal symmetrical movements -5a. Left Arm 0 - No drift; arm holds 90 ( or 45) degrees for full 10 seconds -5b. Right Arm 0 - No drift; arm holds 90 ( or 45) degrees for full 10 seconds -6a. Left Leg 0 - No drift; leg holds 30- degree position for full 5 seconds -6b. Right Leg 0 - No drift; leg holds 30- degree position for full 5 seconds -7. Limb Ataxia 0 - Absent -8. Sensory 0 - Normal; no sensory loss -9. Best Language 0 - No aphasia; normal -10. Dysarthria 1 = Mild-to- moderate dysarthria; -11. Extinction and Inattention 0 - No abnormality -Total 1 Query Text:A score of 0 is normal or asymptomatic. Total possible score is 42 . ED: Notify Physician for NIHSS increase by > / = 3 points. Inpatient: RN or Physician to activate a stroke alert for NIHSS increase of > / = 3 points. Coma Scale [Assess] -Eye Opening To Voice -Motor Obeys Commands -Verbal Oriented [Total] -Coma Scale Total 14
[2025-04-11] MEDS: Nicotine (PBKC) 21 MG Patch TD (08:35)
--- NOTE | 2025-04-11 09:39 | CASEMGMT ---
Social Work SW spoke with the patient and patient is agreeable to DC to an acute rehab facility. Patient was given a list of?acute rehab providers including quality and resource use data and consistent with the patient's preferred geographic region, medical needs, and insurance network created [facility] The patient first choice is [facility]. A referral was sent to [facility]. MEÑO Latif
--- NOTE | 2025-04-11 11:19 | CASEMGMT ---
Social Work Patient has been accepted at the Acute Rehab department at [facility]. Physician is aware of this. SW informed the nurse and the patient. The patient reported SW could call his sister. SW called the sister and informed her. Patient is medically ready for DC today. MEÑO Latif
--- NOTE | 2025-04-11 11:44 | PCM.DC.SUM ---
Providers Date of Admission: 04/11/25 Date of Discharge: 04/11/25 Primary Care Physician: Dr. Padmini Barth, DO Consultations 04/09/25 20:34 Consult: Tele-Neurology Routine Consulting Provider: [facility] Reason for Consult: Acute Ischemic Stroke/TIA EMERGENT Consult: No MD Notified: Yes Date Notified: 04/09/25 Time Notified: 21:24 Method of Notification: Answering Service Nursing Unit Staff Notify [facility] of Tele-Neurology Consult: Yes Reason For Visit: TIA/CVA Diagnosis Discharge Diagnosis (1) Diplopia: Status: Acute Code(s): H53.2 - Diplopia (2) Ataxia: Status: Acute Code(s): R27.0 - Ataxia, unspecified (3) CVA (cerebral vascular accident): Status: Acute Code(s): I63.9 - Cerebral infarction, unspecified Plan Patient is a 64-year-old gentleman with past medical history signal for CVA, history of meningioma status post resection who presented to the emergency department with diplopia and ataxia as well as confusion admitted to a monitored bed for workup of suspected CVA 1. Acute CVA ? Patient presented with multiple symptoms including disorientation diplopia ataxia. Admitted to a monitored bed ordered every 4 neurochecks. As part of his management 2D echo lipid panel MRI ordered for subsequent eval [facility]; MRI ordered did show Two acute lacunar infarcts involving the bilateral thalamic nuclei. Moderate parenchymal volume loss and chronic small-vessel ischemic changes elsewhere, with numerous scattered old lacunar infarcts in the cota radiata and bilateral basal ganglia.. Postoperative changes of right temporal craniotomy and reported meningioma resection. No residual/recurrent tumor. 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 Subsequently requested for PT OT eval, speech therapy and social director to assist with discharge planning. Did discuss with patient's family?sister about patient being discharged to a rehab facility when medically stable ? 2D echo did show ;The left ventricular ejection fraction is 50 %. Stage 1 diastolic dysfunction. Mild segmental systolic dysfunction (see wall motion).Mild concentric left ventricular hypertrophy. There is Mild focal posterior mitral annular calcification. Aortic sclerosis, no stenosis. Mild (1+) aortic valve insufficiency. 2. History of meningioma ? Status post resection 3. Essential hypertension ? Following permissive hypertensive protocol 4. Dyslipidemia ? Patient was found to have elevated cholesterol of 236 and LDL of 175 patient started on atorvastatin 5. Diabetes mellitus type II -patient's oral hypoglycemics held. Placed on long acting insulin, Accu-Cheks a.c. and at bedtime and covered with sliding scale insulin 6. Depression with anxiety ? Patient is on escitalopram continue 7. Tobacco dependence ? Counseled on cessation, offered nicotine patch for tobacco cravings 8. DVT prophylaxis ? On enoxaparin Time spent in the patient's overall evaluation,decision-making process, review of diagnostic data, adjustment of management, discussion with other providers, nursing nursing and ancillary staff involved in patient's care documentation, 36 Minutes Medications at Discharge Home Medications metformin 500 mg tablet 500 mg PO DAILY 10/21/15 amitriptyline 50 mg tablet 50 mg PO QHS 09/09/17 escitalopram oxalate 20 mg tablet 20 mg PO QHS 10/17/17 amitriptyline 50 mg tablet 50 mg PO QHS #20 tabs 04/06/25 losartan 100 mg tablet 100 mg PO DAILY #20 tabs 04/06/25 amlodipine 5 mg tablet 5 mg PO DAILY #90 tabs 04/10/25 atorvastatin 40 mg tablet (Lipitor) 40 mg PO QHS #90 tabs 04/10/25 clopidogrel 75 mg tablet 75 mg PO DAILY #21 tabs 04/11/25 Physical Exam Narrative GENERAL: Somewhat dysarthric HEENT: Atraumatic; normocephalic EYES; Anicteric, Normal Conjunctiva NECK; supple, normal thyroid, RESPIRATORY: Diminished to auscultation CARDIOVASCULAR: Regular S1 S2, GI: soft, normoactive bowel sounds, : No Renal angle tenderness; EXTREMITIES: No edema, no clubbing, MUSCULOSKELETAL: no muscle wasting NEURO: Awake; no lateralizing signs. SKIN: No Rash PSYCH; Flat affect Weight / BMI Weight Weight: 82.6 kg Body Mass Index (BMI) 27.6 ABG / Lab / Microbiology Data 04/11/25 06:10 04/11/25 06:10 Laboratory: Laboratory Results - last 24 hr 04/10/25 06:07: Vitamin B12 484 04/10/25 12:16: POC Glucose 154 H 04/10/25 14:44: Ammonia 30.5 04/10/25 16:22: POC Glucose 244 H 04/10/25 22:05: POC Glucose 109 H 04/11/25 06:10: WBC 8.2, RBC 4.83, Hgb 15.9, Hct 44.9, MCV 93.0, MCH 32.9 H, MCHC 35.4, RDW Std Deviation 42.8, RDW Coeff of Gogo 12.6, Plt Count 175, MPV 10.5, Immature Gran % (Auto) 0.200, Neut % (Auto) 65.3, Lymph % (Auto) 21.8, [place]mer % (Auto) 11.5 H, Eos % (Auto) 0.5, Baso % (Auto) 0.7, Absolute Neuts (auto) 5.3, Absolute Lymphs (auto) 1.78, Nucleated RBC % 0, Sodium 135, Potassium 3.9, Chloride 101, Carbon Dioxide 23.0, Anion Gap 11, BUN 14, Creatinine 0.72, Estim Creat Clear Calc 95.17, Est GFR (MDRD) Non-Af 101, BUN/Creatinine Ratio 18.8, Glucose 151 H, Calcium 9.2, Phosphorus 3.7, Magnesium 2.1 04/11/25 06:43: POC Glucose 151 H Radiography Diagnostic Testing: Radiology Impression Echocardiogram 04/09/25 20:34 Interpretation Summary The left ventricular ejection fraction is 50 %. Stage 1 diastolic dysfunction. Mild segmental systolic dysfunction (see wall motion). Mild concentric left ventricular hypertrophy. There is Mild focal posterior mitral annular calcification. Aortic sclerosis, no stenosis. Mild (1+) aortic valve insufficiency. Ordering Physician: Joselyn Cano Referring Physician: Padmini Barth M.D. Performed By: Lissy Baker RDCS Brain MRI 04/10/25 05:55 IMPRESSION: 1. Two acute lacunar infarcts involving the bilateral thalamic nuclei. 2. Moderate parenchymal volume loss and chronic small-vessel ischemic changes elsewhere, with numerous scattered old lacunar infarcts in the cota radiata and bilateral basal ganglia. 3. Postoperative changes of right temporal craniotomy and reported meningioma resection. No residual/recurrent tumor. 4. 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 Reading Location: [id number] D/C Instructions Discharge Activity: Return to Normal Activity Call your doctor if you observe: Fever of 101 or Higher, Shortness of breath, Fainting spells and Chest pain DC O2, CPAP, BIPAP Needs Home O2 Discharge instructions: No Meaningful Use Info Meaningful Use Meaningful Use Diagnoses (Choose all that apply): Ischemic CVA CVA Therapy Assessed for PT,OT and/or ST?: Yes Ischemic Stroke Antithrombotic order at d/c?: Yes Dx of Atrial fib/flutter?: No Statins at discharge?: Yes If patient is 75 or younger, pt will be discharged on HIGH intensity statin.: Yes Primary Dx Acute Ischemic CVA?: Yes IV thrombolytic ordered during stay?: No Reason IV thrombolytic not ordered: Treatment not Indicated Discharge Plan Admission Admit Date/Time: 04/11/25 07:47 Attending Provider: Michael Peraza Primary Care Provider: Padmini Barth Consulting Providers: Earl Fountain; Abraham Encinas; Marisabel Fox; Karina Enriquez; Renee Osborne; Tucker Soliman; Anya Skaggs; Merrill Conte; Jeff Pritchett; Jax Siddiqui; Yadira Schulz; Hidla Escudero; Corky Freire; Nesha Perez; Spencer Bowman; Angy Saleh; Bakari Limon; Cristopher Moraes; Faraz Howell; Tiffany Szymanski; Alida Fortune; Joselyn Cano Discharge Orders/Prescriptions Prescriptions: New amlodipine 5 mg tablet 5 mg PO DAILY Qty: 90 0RF atorvastatin [Lipitor] 40 mg tablet 40 mg PO QHS Qty: 90 0RF clopidogrel 75 mg Tablet 75 mg PO DAILY Qty: 21 0RF Continued amitriptyline 50 mg tablet 50 mg PO QHS escitalopram oxalate 20 mg tablet 20 mg PO QHS Patient Comments: anti-depressant metformin 500 MG tablet 500 mg PO DAILY Patient Comments: blood sugar amitriptyline 50 mg tablet 50 mg PO QHS Qty: 20 0RF losartan 100 mg tablet 100 mg PO DAILY Qty: 20 0RF Other Ambulatory Orders: 30 Day Event Recorder [employer] (Urgent) Timeframe: 1 Day Facility: [facility] - Location: Cardiovascular Services Ordered By: Dr. Michael Peraza Referrals / Follow Up: Padmini Barth DO [Primary Care Provider, Internal Medicine] - Within 1 Week Lyric Weaver NP-C [Med Staff - [facility] Prof, Internal Medicine] Disposition Disposition (needs filled in before D/C Order can be placed): Inpatient Rehab Unit/Facility Charges/Coding Visit Charges Inpatient E&M: 67307 Disch Hosp >30min
--- NOTE | 2025-04-11 13:52 | PHA.DC_ITS ---
Pharmacy [place] Med Reconciliation
--- NOTE | 2025-04-11 13:52 | PHA.DC.MR.R ---
Pharmacy [place] Med Reconciliation Pharmacy Service has performed discharge medication reconciliation for this patient. The patient's discharge medication list was reviewed for discrepancies and discrepancies were resolved. Medications at Discharge Home Medications metformin 500 mg tablet 500 mg PO DAILY diabetes 10/21/15 amitriptyline 50 mg tablet 50 mg PO QHS mental health 09/09/17 escitalopram oxalate 20 mg tablet 20 mg PO QHS mental health 10/17/17 amitriptyline 50 mg tablet 50 mg PO QHS #20 tabs 04/06/25 losartan 100 mg tablet 100 mg PO DAILY blood pressure #20 tabs 04/06/25 amlodipine 5 mg tablet 5 mg PO DAILY #90 tabs 04/10/25 atorvastatin 40 mg tablet (Lipitor) 40 mg PO QHS #90 tabs 04/10/25 clopidogrel 75 mg tablet 75 mg PO DAILY #21 tabs 04/11/25
--- NOTE | 2025-04-11 15:28 | CASEMGMT ---
Social Work SW informed the patient and the sister that the patient will not DC to the acute rehab unit until tomorrow. MEÑO Latif
[2025-04-11 19:00] VITALS: BP 148/90; PULSE 85; RESP 16; TEMP 36.6; O2SAT 98
[2025-04-11 20:27] VITALS: BP 152/95; PULSE 86; RESP 16; TEMP 36.6; O2SAT 98
[2025-04-11 23:00] VITALS: BP 147/84; PULSE 84; RESP 16; TEMP 36.7; O2SAT 96
[2025-04-11 23:51] VITALS: BMI 27.6
[2025-04-12 02:37] VITALS: BMI 27.8
[2025-04-12 03:00] VITALS: BP 128/90; PULSE 84; RESP 16; TEMP 36.6; O2SAT 95
[2025-04-12 05:06] LABS: Hematocrit 46.6 % (40-54); Hemoglobin 16.2 g/dL (13.0-16.5); Immature Granulocytes Count 0.020 X10^3/uL (0.0-0.0); Mean Corp Hgb Conc 34.8 g/dL (32-36); Mean Corpuscular Volume 94.1 fL (80-94); Mean Platelet Vol. 11.0 fl (6.2-12.0); NRBC Flagged by Analyzer 0 % (0-5); Platelet Count 179 K/mm3 (150-450); RBC Distribution Width CV 12.6 % (11.6-14.6); RBC Distribution Width SD 43.7 fl (35.1-43.9); Red Blood Count 4.95 M/mm3 (4.6-6.2); White Blood Count 9.1 K/mm3 (4.4-11.0)
[2025-04-12 05:35] LABS: Anion Gap 14 (5-15); BUN 14 mg/dL (4-19); BUN/Creat Ratio 18.2 RATIO (10-20); Calcium,Total 8.9 mg/dL (7.6-11.0); Carbon Dioxide 20.2 mmol/L (21.0-32.0); Chloride 101 mmol/L (98-108); Estimated Creatinine Clearance 95.38 ml/min (50-250); Glucose 135 mg/dL (70-99); Potassium 3.9 mmol/L (3.3-5.1)
[2025-04-12 07:08] VITALS: BP 142/102; PULSE 95; RESP 16; TEMP 36.7; O2SAT 97
[2025-04-12] MEDS: Nicotine (PBKC) 21 MG Patch TD (08:11)
[2025-04-12 17:08] LABS: Folate, Hemolysate Test 365.0 ng/mL (Not Estab.); Folate, RBC (Hct) Test 47.8 % (37.5-51.0); Folates, RBC Test 764 ng/mL (>498)
== END 2025-04-12 12:00 | DRG 64 ==
LOC: ED 19:07 → PCU 19:43
PROVIDERS: Admitting Provider Family Medicine; Emergency Provider Emergency Medicine; PCP Internal Medicine; Visit Provider Internal Medicine
DX: I63.9 Cerebral infarction, unspecified (principal); Q28.3 Other malformations of cerebral vessels; E86.9 Volume depletion, unspecified; E11.9 Type 2 diabetes mellitus without complications; I10 Essential (primary) hypertension; I70.0 Atherosclerosis of aorta; I34.81 Nonrheumatic mitral (valve) annulus calcification; H53.2 Diplopia; F17.210 Nicotine dependence, cigarettes, uncomplicated; E78.5 Hyperlipidemia, unspecified; I25.10 Atherosclerotic heart disease of native coronary artery without angina pectoris; G47.33 Obstructive sleep apnea (adult) (pediatric); F41.8 Other specified anxiety disorders; I78.1 Nevus, non-neoplastic; I35.1 Nonrheumatic aortic (valve) insufficiency; F12.90 Cannabis use, unspecified, uncomplicated; Z82.49 Family history of ischemic heart disease and other diseases of the circulatory system; R27.0 Ataxia, unspecified; Z91.148 Patient's other noncompliance with medication regimen for other reason; R41.0 Disorientation, unspecified; R47.81 Slurred speech; Z79.84 Long term (current) use of oral hypoglycemic drugs; R29.702 NIHSS score 2; Z86.73 Personal history of transient ischemic attack (TIA), and cerebral infarction without residual deficits
CPT/HCPCS: 36415; 70450; 70496; 70498; 70553; 80048; 80053; 80061; 80307; 82140; 82607; 82747; 82962; 83036; 83735; 84100; 84443; 85014; 85025; 92526; 92610; 93005; 93306; 94668; 94762; 97162; 97166; 99284; 99406; A9575; Q9967; A4216

== ENCOUNTER 2025-04-12 12:03 | Inpatient (IN) | payer MEDICARE, SELFPAY ==
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
[2025-04-12 12:32] VITALS: BP 150/91; PULSE 75; RESP 17; TEMP 36.4; O2SAT 94; BMI 27.3
[2025-04-12 18:00] VITALS: BP 153/96; PULSE 93; RESP 18; TEMP 36.8; O2SAT 98
[2025-04-12 19:35] VITALS: O2SAT 98
[2025-04-12] MEDS: Senna/Docusate Sodium 1 Tablet 2 TABLET PO (21:27)
[2025-04-12] MEDS: 0.9% Saline Lock 10 ML Syringe IV (21:29)
--- NOTE | 2025-04-12 23:31 | NURSING ---
pt bladder scanned after voiding 125cc, scanned value was 287cc. pt was straight cathed as per order and value was 300cc of miquel colored urine with a strong odor. pt tolerated the procedure well
[2025-04-13 00:20] VITALS: BP 147/94; PULSE 95; RESP 18; TEMP 36.6; O2SAT 94
[2025-04-13 05:58] LABS: Hematocrit 46.7 % (40-54); Hemoglobin 16.3 g/dL (13.0-16.5); Immature Granulocytes Count 0.060 X10^3/uL (0.0-0.0); Mean Corp Hgb Conc 34.9 g/dL (32-36); Mean Corpuscular Volume 92.3 fL (80-94); Mean Platelet Vol. 10.6 fl (6.2-12.0); NRBC Flagged by Analyzer 0 % (0-5); POSITIVE DIFFERENTIAL YES; Platelet Count 175 K/mm3 (150-450); RBC Distribution Width CV 12.6 % (11.6-14.6); RBC Distribution Width SD 43.2 fl (35.1-43.9); Red Blood Count 5.06 M/mm3 (4.6-6.2); White Blood Count 12.9 K/mm3 (4.4-11.0)
[2025-04-13 06:00] VITALS: BP 138/86; PULSE 87; RESP 18; TEMP 36.3; O2SAT 95
[2025-04-13 06:35] LABS: Differential Indicated SCAN CRITERIA MET
[2025-04-13 06:36] LABS: Differential Comment SCANNED
[2025-04-13 06:51] LABS: AST(SGOT) 16 U/L (<=37); Alanine Aminotransfer ALT/SGPT 12 U/L (<=46); Albumin, Serum 4.1 g/dL (3.4-4.8); Alkaline Phosphatase 105 U/L (40-129); Anion Gap 12 (5-15); BUN 17 mg/dL (4-19); BUN/Creat Ratio 20.2 RATIO (10-20); Calcium,Total 9.4 mg/dL (7.6-11.0); Carbon Dioxide 22.2 mmol/L (21.0-32.0); Chloride 102 mmol/L (98-108); Estimated Creatinine Clearance 84.70 ml/min (50-250); Globulin 2.6 g/dL (2.2-4.2); Glucose 155 mg/dL (70-99); Magnesium 2.2 mg/dL (1.5-2.2); Potassium 4.6 mmol/L (3.3-5.1)
[2025-04-13 06:59] VITALS: O2SAT 94
[2025-04-13] MEDS: Senna/Docusate Sodium 1 Tablet 2 TABLET PO ×2 (07:58→21:20)
[2025-04-13] MEDS: Nicotine (PBKC) 21 MG Patch TD (08:02)
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
--- NOTE | 2025-04-13 09:53 | PCM.RU.PYE ---
Admission Information Primary Diagnosis:: Debility s/p stroke Status Changes from Prescreening?: Medical Actual Problem List:: Cognitve Impr/Memory Loss, Depression, Bladder Incontinence, Mobility Impaired, Self Care Deficit, Ineffective Communication, Know.Dfct/Disease Process, Know.Dfct of Medicaitons, Diabetes, Hyperglycemia, BP, Hypertension and Alteration-Leisure Activ. Potential Problem List:: DVT, Bleeding, Infection, UTI, Aspiration, Falls, Skin Integrity and Depression Risk of Complications DVT: LILIAN Hose and - (Lovenox 40 mg subcu daily) Bleeding: Monitor Lab Values, Nursing to Teach Precautions for anti-coagulation therapy., Wound, if applicable, to be assessed every shift. and Stroke patients assessed for lethargy or change in status. Infection: Clinical Staff to Monitor for S/S of infection: and S/S of infection include fever, redness, warmth, etc. Urinary Tract Infection: Monitor for frequency, burning, discomfort, or incontinence. and Nursing will obtain urine sample for urinalysis and C&S when ordered. Aspiration: Clinical staff will monitor for coughing, drooling, congestion., Speech will evaluate swallowing and dsyphasia. and Nursing will monitor patient swallowing during meals. Falls: Patient will be evaluated for Fall Precautions and Patient will be placed on Fall Precautions as indicated per protocol. Skin Breakdown: Nursing will assess skin daily using assessment tool. and Nursing will place on Skin Breakdown Precautions as indicated. Pain: Clinical staff will assess patient's pain level per protocol., Medications will be given, if needed, and the pain level reassessed. and Other methods: Massage, distraction, decrease stimulus, etc. used PRN. Plan of Care Patient requires physician specializing in physical medicine and rehab oversight to provide close medical supervision of rehab issues including: Pain Management, Sleep Problems, Bowel and Bladder, Medical and co-morbidity Management, DVT prophylaxis, Rehabilitation Leadership and Coordination of treatment team Patient needs Physical Therapy: For a minimum of 1 hour and At least 5 out of 7 days Patient needs Physical Therapy to improve:: Mobility, Strengthening, Transfers, Stretching, ROM, Endurance, Stairs, Gait and Balance Patient needs Occupational Therapy: For a minimum of 1 hour and At least 5 out of 7 days Patient needs Occupational Therapy to improve ADL's incl.: Eating, Grooming, Bathing, Dressing, Toileting, Toilet transfers, Community Reintegration, Higher functioning activities, Household tasks, Adaptive Equipment, Splinting and Other activities as determined Patient requires speech therapy: For a minimum of 1 hour and At least 5 out of 7 days Patient requires speech therapy for: Swallowing, Cognition, Language Skills and Compensatory Strategies Patient requires 24/7 Rehabilitation Nursing for: Identifying and preventing risk factors, Monitoring and reporting current medical conditions, Assisting with ambulation, transfer, and all ADL's, Teaching patients about disease process and medications, Family teaching, Providing safe environment, Bowel and Bladder Issues, Skin integrity and Medication Management Patient needs Digital Marketing Manager/ Case Management for: Discharge Planning, Arranging Home Equipment or Services and Family Interventions Patient needs Dietary and Nutrition Services for: Adequate Nutrition, Nutritional Supplements and Nutritional Education Goals Goals Patient will remain: free from falls and or injury at time of discharge. Patient will perform bed mobility at: MOD I level of assist. Patient will complete transfers from bed to chair at: MOD I level of assist. Patient will ambulate: 100 feet and with LRD Patient will complete upper body dressing at: MOD I level of assist. Patient will complete lower body dressing at: MOD I level of assist. Patient will complete toilet transfer at: Standby Assist. Patient will complete toileting at: MOD I level of assist. Patient will perform bathing at: MOD I level of assist. Patient will perform Tub/Shower transfer at: Standby Assist. Patient will complete grooming at: MOD I level of assist. Patient will complete home management skills at: MOD I level of assist. Patient will achieve: - (1 curb step) Patient will have pain level of: of 3 or less Patient's skin will: remain intact Patient will receive: adequate nutrition. Discharge Planning Pt Prognosis for Sig. Practical Improv. w/in Reasonable Time: Good Estimated Length of stay (days): 14 Anticipated D/C Destination: Home Was Preadmission Assessment Accurate?: Yes
[2025-04-13 17:56] VITALS: BP 140/84; PULSE 96; RESP 20; TEMP 36.4; O2SAT 95
--- NOTE | 2025-04-13 18:40 | PCM.PROGNOTE ---
Subjective Subjective I reviewed the history and physical done by the nurse practitioner. Patient is a 64-year-old male admitted to the hospital with bilateral thalamic infarcts. He had confusion, slurred speech and diplopia. He denies diplopia right now. He was previously seeing a nurse practitioner but has not seen his person in quite some time and so he is out of some of his medications. He was diagnosed with sleep apnea many years ago and has not had a sleep study since 2010. He has seen Dr. Green in the past. He no longer has a CPAP machine. He does not wear oxygen at home. He denies any history of atrial fibrillation but he complains of restless leg syndrome. He also can fall asleep during the day. He awakens frequently at night and has trouble going to sleep. He has been treated for depression in the past and has been on Lexapro and amitriptyline but has been out of amitriptyline. He says he still taking his Lexapro but he does not know what the dosage is. He has never tried to quit smoking. He smokes cigarettes and marijuana. His last marijuana use was Thursday. He has been driving. He denies cephalgia and lightheadedness. Denies diplopia. He denies chest pain, racing heart, palpitations, nausea/vomiting/abdominal pain, dysuria and calf tenderness. He denies any history of VTE. States he takes his insulin once a day in the morning but he does not check his blood sugars. He follows no specific kind of diet. Denies any suicidal ideation. Tells me his restless leg has been better since he has had oxygen at night. The EMR from this current hospital stay was reviewed. Total cholesterol was 236 with an LDL of 175 and a low HDL at 40. Triglycerides were normal. Folate and TSH are normal. Ammonia was normal. LFTs are unremarkable. Hemoglobin A1c is 7.4. GFR is 96. Creatinine clearance is 84.7. A UA done in 2022 was positive for proteinuria. Microalbumin/creatinine ratio in July 2012 was normal at 20. He has not had a UA this admission. Urine drug screen was positive for cannabinoids. Transthoracic echocardiogram showed mild concentric left ventricular hypertrophy with mild segmental systolic dysfunction. Tells me that there is a hx of CAD/TN in the family. EF is 60% and there is stage I diastolic dysfunction. Right and left atria are of normal size. There is mild diffuse aortic valve thickening with no stenosis. He had a stress echocardiogram in 2018 that was negative for ischemia. EF was 60%. He apparently had a cardiac catheterization in March 2014 but there is no report of the results in the computer. CTA of the head and neck showed no large vessel occlusion in the head or neck. There was no common carotid artery or cervical internal carotid artery stenosis identified. An incidental finding was a left parotid lesion measuring 13 mm. MRI of the brain showed 2 acute lacunar infarcts involving the bilateral thalamic nuclei. This makes me think they may be embolic. Moderate parenchymal volume loss and chronic small vessel ischemic changes were noted. Numerous scattered old lacunar infarcts in the cota radiata and bilateral basal ganglia. This further increases my suspicion that he has been having paroxysmal atrial fibrillation and this may be related to his noncompliance with CPAP or oxygen therapy when sleeping. Postvoid residual x 2 have been 270 and 287. Blood pressure since arrival on rehab has ranged from 138/86 to 153/96. The heart rate is ranged from 75-96. Scored only 25 out of a possible 50 on the BCAT intake negative significant cognitive impairment. He also has dysphagia and is on nectar thick liquids. I agree with the physical exam as documented by the nurse practitioner. I reviewed the plan of care and discussed with the nurse practitioner and agree with her plan with the additions below. 1. Check an overnight trending pulse ox on RA 2. Obtain Dr. Green's records. Has not had a sleep study since 2010. 3. Check a UA and a microalbumin/creat ratio 4. Will likely need a sleep study and DC from rehab and would like to follow up with pulmonary medicine at the hospital 5. Would like to follow up with Dr. Barth at [place]. 6. Not having cigarette cravings and is on a nicotine patch 7. Depressed affect. Suspect this contributes significantly to his non-compliance. Question whether he actually has been taking an AD.......since he is out of his other medications and hasn't seen a PCP where would he be getting his meds? 8. Has never had psychotherapy but, would benefit. 9. Will need to go to drivers rehab following DC from rehab........told him he would not be able to drive until he can pass the evaluation at [facility] 10. discussed cannabis cessation. 11. Will need a 30-day event monitor at discharge. 12. Will need follow-up with ENT postdischarge for the left parotid mass. 13. Needs a 30-day event monitor at discharge from rehab. Objective Data Objective Data Vital Signs: Vital Signs Temp Pulse Resp BP Pulse Ox O2 Del Method O2 Flow Rate 97.6 F L 96 20 H 140/84 H 95 Room Air 2 04/13/25 17:56 04/13/25 17:56 04/13/25 17:56 04/13/25 17:56 04/13/25 17:56 04/13/25 17:56 04/13/25 06:59 Oxygen Flow Rate (L/min) 2 Oxygen Delivery Method Room Air Weight: 179 lb 10.828 oz Body Mass Index (BMI) 27.3 Intake & Output: Intake and Output for Last 24 Hours 04/11/25 04/12/25 04/13/25 23:59 23:59 23:59 Intake Total 780 / 780 720 / 720 Output Total 1125 / 1125 Balance -345 / -345 720 / 720 Lab / Micro Data 04/13/25 05:48 04/13/25 05:48 Labs: Laboratory Results - last 24 hr 04/12/25 21:09: POC Glucose 110 H 04/13/25 05:48: WBC 12.9 H, RBC 5.06, Hgb 16.3, Hct 46.7, MCV 92.3, MCH 32.2 H, MCHC 34.9, RDW Std Deviation 43.2, RDW Coeff of Gogo 12.6, Plt Count 175, MPV 10.6, Immature Gran % (Auto) 0.500, Neut % (Auto) 63.3, Lymph % (Auto) 23.4, [place] % (Auto) 11.8 H, Eos % (Auto) 0.4, Baso % (Auto) 0.6, Absolute Neuts (auto) 8.2 H, Absolute Lymphs (auto) 3.02, Nucleated RBC % 0, Differential Comment SCANNED, Sodium 136, Potassium 4.6, Chloride 102, Carbon Dioxide 22.2, Anion Gap 12, BUN 17, Creatinine 0.83, Estim Creat Clear Calc 84.70, Est GFR (MDRD) Non-Af 96, BUN/Creatinine Ratio 20.2 H, Glucose 155 H, Calcium 9.4, Phosphorus 4.1, Magnesium 2.2, Total Bilirubin 0.58, AST 16, ALT 12, Alkaline Phosphatase 105, Total Protein 6.7, Albumin 4.1, Globulin 2.6, Albumin/Globulin Ratio 1.6 04/13/25 06:39: POC Glucose 198 H 04/13/25 11:39: POC Glucose 189 H 04/13/25 16:26: POC Glucose 128 H
[2025-04-13 21:00] VITALS: BP 126/85; PULSE 90; RESP 16; TEMP 36.3; O2SAT 93
[2025-04-13 22:09] VITALS: PULSE 96; O2SAT 94
[2025-04-14 00:28] LABS: Mucous, Urine 0 SEEN /hpf (<or=2+)
[2025-04-14 00:35] LABS: Color, Urine Yellow (Yellow); Glucose, Dipstick 100 mg/dl (Normal); Ketone-Dipstick Negative (Negative); Leukocyte Esterase-Dipstick 25 /ul (Negative); Nitrite-Dipstick Negative (Negative); Occult Blood-Urine Negative /ul (Negative); Protein-Dipstick 30 mg/dl (Negative); Specific Gravity, Urine 1.025 (1.002-1.030); Urine Bilirubin Dipstick Negative (Negative)
[2025-04-14 00:59] LABS: Red Blood Cells-Urine 0-5 SEEN /hpf (0-5); Squamous Epithelial Cells - UA 0-5 SEEN /hpf (0-5)
[2025-04-14 02:40] LABS: Creatinine, Urine (random) 270.00 mg/dL (39.00-259.00); Microalbumin,Random Urine 67.4 mg/L (<20 mg/L)
[2025-04-14 06:00] VITALS: BP 127/69; PULSE 81; RESP 16; TEMP 36.7; O2SAT 94; BMI 27.2
[2025-04-14] MEDS: 0.9% Saline Lock 10 ML Syringe IV (06:19)
[2025-04-14 07:12] VITALS: O2SAT 94
[2025-04-14] MEDS: Senna/Docusate Sodium 1 Tablet 2 TABLET PO (08:44)
[2025-04-14] MEDS: Nicotine (PBKC) 21 MG Patch TD (08:44)
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
[2025-04-14] MEDS: Lidocaine 2% Viscous15 ML UDC 15 ML PO (16:16)
--- NOTE | 2025-04-14 17:14 | PCM.PROGNOTE ---
Subjective Subjective Afebrile VSS - Maintaining appropriate oxygen saturation on RA Oral intake - FOOD good FLUIDS poor The blood sugar record was reviewed. Fasting today was 145. At bedtime blood sugar was 195. Blood sugar at noon was 177 and prior to supper was 138. Currently on Glucophage 500 mg daily and sliding scale insulin. Discussed with nursing -the last 2 postvoid residuals were 426 and 500. Nursing inserted a Gallagher catheter. Reviewed the THERAPY notes Medication list reviewed. The urine microalbumin/creatinine ratio is 25 which is normal. UA shows 0-5 WBCs and no bacteria. Tells me he slept well last night. Denies lightheadedness, cephalgia, chest pain, shortness of breath, nausea/vomiting/abdominal pain, dysuria and calf tenderness. Yesterday he told me that he was taking insulin once daily at home. Today he tells me that he was not taking any medications because he ran out and had not seen a PCP for refills. He was NOT taking any insulin. He has not been taking any antidepressants. Objective Data Objective Data Vital Signs: Vital Signs Temp Pulse Resp BP Pulse Ox O2 Del Method O2 Flow Rate 98.0 F 81 16 127/69 H 94 Room Air 2 04/14/25 06:00 04/14/25 06:00 04/14/25 06:00 04/14/25 06:00 04/14/25 07:12 04/14/25 08:45 04/13/25 06:59 FiO2 21 04/14/25 07:12 Oxygen Flow Rate (L/min) 2 Oxygen Delivery Method Room Air Weight: 179 lb 12.8 oz Body Mass Index (BMI) 27.2 Intake & Output: Intake and Output for Last 24 Hours 04/12/25 04/13/25 04/14/25 23:59 23:59 23:59 Intake Total 780 / 780 942 / 942 960 / 960 Output Total 1125 / 1125 750 / 750 550 / 550 Balance -345 / -345 192 / 192 410 / 410 Lab / Micro Data 04/13/25 05:48 04/13/25 05:48 Labs: Laboratory Results - last 24 hr 04/13/25 21:08: POC Glucose 195 H 04/13/25 23:45: Urine Color Yellow, Urine Clarity Clear, Urine pH 6.0, Ur Specific [place] 1.025, Urine Protein 30 H, Urine Glucose (UA) 100 H, Urine Ketones Negative, Urine Occult Blood Negative, Urine Nitrite Negative, Urine Bilirubin Negative, Urine Urobilinogen 1 H, Ur Leukocyte Esterase 25 H, Urine RBC 0-5 SEEN, Urine WBC 0-5 SEEN, Ur Squamous Epith Cells 0-5 SEEN, Urine Bacteria 0 SEEN, Urine Mucus 0 SEEN, Ur Random Microalbumin 67.4, Urine Creatinine 270.00 H, Microalb/Creat Ratio 25.0 04/14/25 06:27: POC Glucose 145 H 04/14/25 11:53: POC Glucose 177 H 04/14/25 16:09: POC Glucose 138 H Physical Exam Const alert and no apparent distress Constitutional Narrative: Voice is soft and does not project well. He has some slurring to his speech. I have to ask him to repeat things. General Appearance: cooperative Resp normal respiratory effort Resp Narrative: Clear to auscultation Effort and Inspection: Negative for tachypneic Auscultation: diminished lung sounds Cardio regular rate, regular rhythm and no gallops GI normal to inspection, nondistended, normoactive bowel sounds, soft to palpation and non-tender GI Narrative: No guarding with palpation Extremity no calf tenderness General Extremity: Negative for edema Skin Rashes: no rashes Psych Psych Narrative: Depressed flat affect. Does not always make eye contact with me when he is speaking. Not agitated. Good appetite and oral intake. Slept well last night. 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 Qualified Code(s): E11.69 - Type 2 diabetes mellitus with other specified complication (7) HTN (hypertension): QUALIFIERS: Hypertension type: primary hypertension Qualified Code(s): I10 - Essential (primary) hypertension (8) Hyperlipidemia: QUALIFIERS: Hyperlipidemia type: unspecified Qualified Code(s): E78.5 - Hyperlipidemia, unspecified (9) Tobacco use disorder: (10) Marijuana smoker: (11) Anxiety with depression: (12) GERD (gastroesophageal reflux disease): QUALIFIERS: Esophagitis presence: without esophagitis Qualified Code(s): K21.9 - Gastro-esophageal reflux disease without esophagitis (13) YE (obstructive sleep apnea): (14) Atherosclerotic heart disease of [place] coronary artery without angina pectoris: QUALIFIERS: [place] vs. transplanted heart: [place] heart Qualified Code(s): I25.10 - Atherosclerotic heart disease of [place] coronary artery without angina pectoris (15) Urine retention: PLAN: Plan 1. Continue therapy 2. Discontinue amitriptyline secondary to urine retention 3. Start Flomax 0.4 mg daily 4. Voiding trial in 5 to 7 days 5. Continue losartan for proteinuria 6. This gentleman needs a lot of education. We discussed the goals of tx today. Hemoglobin A1c less than 7 and preferably less than 6.5, blood pressure consistently less than 130/80, LDL 70 or less. We also discussed the importance of discontinuing any nicotine products and discontinuing cannabis. 7. He only scored 25 out of a possible 50 on the BCAT. He has significant cognitive dysfunction. He has been living alone and managing his meds and finances. Will need to discuss with his dtr.......suspect he is going to need supervision with medications and dinances. Cognition hopefully will improve somewhat with treating the depression and aggressive ST. Charges/Coding Visit Charges Inpatient E&M: 25252 Subs Hosp L2
[2025-04-14 17:21] VITALS: BP 143/77; PULSE 90; RESP 17; TEMP 36.6; O2SAT 94
[2025-04-15 05:25] VITALS: BP 140/87; PULSE 99; RESP 18; TEMP 36.8; O2SAT 96
[2025-04-15] MEDS: Nicotine (PBKC) 21 MG Patch TD (08:19)
[2025-04-15 08:22] VITALS: BP 135/75; PULSE 100
[2025-04-15] MEDS: 0.9% Saline Lock 10 ML Syringe IV (16:29)
[2025-04-15 17:05] VITALS: BP 143/81; PULSE 97; RESP 16; TEMP 36.6; O2SAT 94
[2025-04-16 05:35] VITALS: BP 113/68; PULSE 93; RESP 18; TEMP 36.6; O2SAT 98
[2025-04-16 07:25] VITALS: O2SAT 90
[2025-04-16] MEDS: Nicotine (PBKC) 21 MG Patch TD (08:12)
[2025-04-16 08:17] VITALS: BP 140/80; PULSE 92
[2025-04-16] MEDS: 0.9% Saline Lock 10 ML Syringe IV ×2 (17:03→21:33)
[2025-04-16 17:22] VITALS: BP 143/80; PULSE 98; RESP 16; TEMP 36.7; O2SAT 97
[2025-04-16 21:40] VITALS: BMI 27.2
[2025-04-17 06:00] VITALS: BP 143/75; PULSE 93; RESP 16; TEMP 36.2; O2SAT 95
[2025-04-17] MEDS: Nicotine (PBKC) 21 MG Patch TD (08:01)
--- NOTE | 2025-04-17 09:53 | PCM.PROGNOTE ---
Subjective Subjective Lasha was seen on team rounds today. His sister Jessica was present in the room for rounds. Afebrile VSS -blood pressure over the weekend has ranged from 113/68 (once) to 140/87. More often than not the systolic is greater than 130 and the diastolic is hovering around 80-85. Heart rate is ranged from 92-100. Current antihypertensives include Cozaar 100 mg daily and amlodipine 5 mg daily. Maintaining appropriate oxygen saturation on RA Oral intake - FOOD good FLUIDS good The blood sugar record was reviewed. Blood sugars are better but not optimally controlled yet. Currently on metformin 750 twice daily and sliding scale insulin. He had 6 units of regular insulin yesterday for elevated blood sugars. He had 2 bowel movements yesterday and has had 1 earlier this morning. Discussed with nursing - no problems that need addressed Reviewed the THERAPY notes Medication list reviewed. Lasha denies lightheadedness, cephalgia, chest pain, shortness of breath, cough, nausea/vomiting/abdominal pain, dysuria and calf tenderness. Tells me he slept well last night. urine in the Gallagher bag is clear. Denies fevers, chills and sweats. Doing well with therapy and is being cooperative. speech is the biggest deficit and swallowing. Objective Data Objective Data Vital Signs: Vital Signs Temp Pulse Resp BP Pulse Ox O2 Del Method O2 Flow Rate 97.2 F L 93 16 143/75 H 95 Room Air 2 04/17/25 06:00 04/17/25 06:00 04/17/25 06:00 04/17/25 06:00 04/17/25 06:00 04/17/25 06:00 04/13/25 06:59 FiO2 21 04/14/25 07:12 Oxygen Flow Rate (L/min) 2 Oxygen Delivery Method Room Air Weight: 179 lb 12.8 oz Body Mass Index (BMI) 27.2 Intake & Output: Intake and Output for Last 24 Hours 04/15/25 04/16/25 04/17/25 23:59 23:59 23:59 Intake Total 1350 / 1350 1540 / 1540 490 / 490 Output Total 1250 / 1250 1900 / 1900 300 / 300 Balance 100 / 100 -360 / -360 190 / 190 Lab / Micro Data 04/13/25 05:48 04/13/25 05:48 Labs: Laboratory Results - last 24 hr 04/16/25 11:41: POC Glucose 154 H 04/16/25 16:34: POC Glucose 187 H 04/16/25 21:30: POC Glucose 108 H 04/17/25 06:28: POC Glucose 126 H Physical Exam Const alert and no apparent distress Constitutional Narrative: Voice is soft and does not project well. He has some slurring to his speech. I have to ask him to repeat things. General Appearance: cooperative Resp normal respiratory effort Resp Narrative: Clear to auscultation Effort and Inspection: Negative for tachypneic Auscultation: diminished lung sounds Cardio regular rate, regular rhythm and no gallops GI normal to inspection, nondistended, normoactive bowel sounds, soft to palpation and non-tender GI Narrative: No guarding with palpation Extremity no calf tenderness General Extremity: Negative for edema Skin Rashes: no rashes Psych Psych Narrative: Depressed flat affect. Does not always make eye contact with me when he is speaking. Not agitated. Good appetite and oral intake. Slept well last night. Assessment & Plan Assessment/Plan (1) Debility: (2) CVA (cerebral vascular accident): QUALIFIERS: CVA mechanism: occlusion Laterality of affected vessel: bilateral (3) Dysarthria: (4) Dysphagia: QUALIFIERS: Dysphagia type: oropharyngeal phase Qualified Code(s): R13.12 - Dysphagia, oropharyngeal phase (5) Cognitive dysfunction: (6) Noncompliance with medication regimen: (7) Diabetes mellitus, type 2: QUALIFIERS: Diabetes mellitus buttermaker continuous churn insulin use: without group home use Diabetes mellitus complication status: with other specified complication Qualified Code(s): E11.69 - Type 2 diabetes mellitus with other specified complication (8) HTN (hypertension): QUALIFIERS: Hypertension type: primary hypertension Qualified Code(s): I10 - Essential (primary) hypertension (9) Hyperlipidemia: QUALIFIERS: Hyperlipidemia type: unspecified Qualified Code(s): E78.5 - Hyperlipidemia, unspecified (10) Tobacco use disorder: (11) Marijuana smoker: (12) Anxiety with depression: (13) GERD (gastroesophageal reflux disease): QUALIFIERS: Esophagitis presence: without esophagitis Qualified Code(s): K21.9 - Gastro-esophageal reflux disease without esophagitis (14) YE (obstructive sleep apnea): (15) Atherosclerotic heart disease of [place] coronary artery without angina pectoris: QUALIFIERS: [place] vs. transplanted heart: [place] heart Qualified Code(s): I25.10 - Atherosclerotic heart disease of [place] coronary artery without angina pectoris (16) Urine retention: PLAN: Plan 1. Continue therapy 2. Add glipizide XL 5 mg daily to the current drug regimen. Would like to see the fasting blood sugar under 130 and postprandials under 180. 3. Increase amlodipine to 10 mg daily - no edema today. 4. Voiding trial Thursday. Continue Flomax 5. I discussed the goals of treatment and the risk factors for stroke/coronary artery disease with Lasha and Jessica. 6. Will need supervision for medications at [place] and finances. Recommend follow up with psychiatry to manage psych medications....... Jessica tells us he has been on multiple medications in the past for the treatment of anxiety and depression including Wellbutrin, Lexapro, buspirone and amitriptyline. 7. He would like to follow-up with Dr. Barth for primary care.....has seen her in the past. 8. No driving at discharge. Will need to follow-up with the drivers rehab program at [facility] before he will be allowed to drive again. Both Lasha and Chloé understand this. Male greater than 50 years of age Diabetes mellitus type 2 Hyperlipidemia Hypertension Positive smoking Positive family history of CAD and stroke Charges/Coding Visit Charges Inpatient E&M: 21155 Subs Hosp L2
--- NOTE | 2025-04-17 13:06 | CASEMGMT ---
Social Work IDT met with patient and sister for Team meeting. 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 Educated to Medicare approval of 10 days, DC 04/22. Pt's goal is to return home alone. 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 Offered LABVIEW PROGRAMMER for daily or every other day for med management and safety. SW educated to skilled HHC for PT/OT/ST/CARBAJAL/SN/SW, however, since pt is not established with Dr. Barth any longer, there may be a delay in HHC care as PCP needs to sign and agree to HHC orders. SW also educated to Medicare skilled benefit at a SNF, if elected prior to DC home. SW offered resources and will assist with DC planning. recommending counseling at DC as well as psychiatry. SW provided list of counseling and psychiatry resources. Pt/sister to discuss options and notify this worker of decision. SW will continue to follow for DC planning. Kasey Boyd MACHINE HOOP MAKER HELPER JAVA LEAD ENGINEER
[2025-04-17] MEDS: 0.9% Saline Lock 10 ML Syringe IV (14:02)
--- NOTE | 2025-04-17 15:21 | CASEMGMT ---
Social Work Received call from RN stating pt/sister have elected SNF and requested list of options. SW returned to pt's room where sister was still present. Confirmed SNF choice at DC. SW provided list of SNFs in preferred geographical area, INN with pt?s insurance, including quality and resource data via [employer] [employer]. Sister reviewed and provided choices with pt's agreement: 1. [facility], [facility], [facility], [facility]. [facility], 4. [facility], 5. [facility]. SW sent referral to TCU via [facility]. Will await outcome prior to referring to additional SNFs. Plan: DC 04/22 to SNF, skilled Kasey Boyd MSW PRINCIPAL GIFTS OFFICER
[2025-04-17 17:38] VITALS: BP 131/84; PULSE 94; RESP 18; TEMP 36.6; O2SAT 96
[2025-04-17 21:20] VITALS: BP 125/68; PULSE 91; RESP 16; TEMP 36.7; O2SAT 93
[2025-04-18 03:04] VITALS: BMI 27.2
[2025-04-18 06:00] VITALS: BP 136/79; PULSE 84; RESP 18; TEMP 36.7; O2SAT 96
[2025-04-18] MEDS: 0.9% Saline Lock 10 ML Syringe IV (06:14)
[2025-04-18 07:30] VITALS: BP 152/95; PULSE 100; RESP 16
[2025-04-18] MEDS: Nicotine (PBKC) 21 MG Patch TD (07:33)
--- NOTE | 2025-04-18 09:27 | PCM.PROGNOTE ---
Subjective Subjective Afebrile VSS -blood pressures are not adequately controlled. Blood pressures over the past 24 hours have ranged from 125/68 to 152/95. Only 1 systolic was less than 130 yesterday. Diastolics are usually less than 80 but this morning the blood pressure is 152/95. Heart rate over the past 24 hours has ranged from 84-100. Amlodipine was increased to 10 mg daily and yesterday was the first day he got 2 mg. He is also on Cozaar 100 mg daily. He may benefit from a beta-gil. BP is only mildly elevated so will continue to monitor closely for the next couple days. If the BP is not at goal after a couple days will add a beta gil. Maintaining appropriate oxygen saturation on RA Oral intake - FOOD good FLUIDS. The blood sugar record was reviewed. Fasting blood sugar today is 152 and the at bedtime blood sugar was 160. The blood sugar prior to lunch yesterday was elevated at 217. He had a total of 6 units of lispro yesterday. Glipizide was added to the drug regimen yesterday and he received his first dose this morning. Would like to get rid of the sliding scale so we will adjust oral medications as needed to get the fastings under 130 and the postprandials under 180. Discussed with nursing - no problems that need addressed Reviewed the THERAPY notes Medication list reviewed. Lasha denies lightheadedness, vertigo, CP, SOB at rest, SOB with exertion, cough, nausea, vomiting, abd pain, diarrhea (stool is soft and he is having 1-2 a day....not diarrhea), constipation, dysuria, calf pain and ankle swelling. Slept well last night. Good appetite. Objective Data Objective Data Vital Signs: Vital Signs Temp Pulse Resp BP Pulse Ox O2 Del Method O2 Flow Rate 98.1 F 100 16 152/95 H 96 Room Air 2 04/18/25 06:00 04/18/25 07:30 04/18/25 07:30 04/18/25 07:30 04/18/25 06:00 04/18/25 07:30 04/13/25 06:59 FiO2 21 04/14/25 07:12 Oxygen Flow Rate (L/min) 2 Oxygen Delivery Method Room Air Weight: 179 lb 12.8 oz Body Mass Index (BMI) 27.2 Intake & Output: Intake and Output for Last 24 Hours 04/16/25 04/17/25 04/18/25 23:59 23:59 23:59 Intake Total 1540 / 1540 1680 / 1680 590 / 590 Output Total 1900 / 1900 850 / 850 500 / 500 Balance -360 / -360 830 / 830 90 / 90 Lab / Micro Data 04/13/25 05:48 04/13/25 05:48 Labs: Laboratory Results - last 24 hr 04/17/25 11:28: POC Glucose 217 H 04/17/25 16:28: POC Glucose 125 H 04/17/25 21:19: POC Glucose 160 H 04/18/25 06:40: POC Glucose 152 H Physical Exam Const alert and no apparent distress General Appearance: cooperative Resp normal respiratory effort Resp Narrative: Clear to auscultation Effort and Inspection: Negative for tachypneic Auscultation: diminished lung sounds Cardio regular rate, regular rhythm and no gallops GI normal to inspection, nondistended, normoactive bowel sounds, soft to palpation and non-tender GI Narrative: No guarding with palpation Extremity no calf tenderness General Extremity: Negative for edema Skin Rashes: no rashes Assessment & Plan Assessment/Plan (1) Debility: (2) CVA (cerebral vascular accident): QUALIFIERS: CVA mechanism: occlusion Laterality of affected vessel: bilateral (3) Dysarthria: (4) Diabetes: QUALIFIERS: Diabetes mellitus type: type 2 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 Suspect BPH but also urine retention could have resulted from amitriptyline 50 mg nightly which has been discontinued. PLAN: Plan 1. Continue therapy 2. Continue to monitor blood sugars and blood pressure closely. Goal for the blood sugars is to have a fasting less than 130 and postprandials less than 180. Goal for the blood pressure is less than 130/80. Amlodipine was just increased to 10 mg daily yesterday. If blood pressure remains uncontrolled with the increase in amlodipine to 10 mg will likely change to a beta-gil as his resting heart rate is high and I suspect he has some anxiety. Has been on BuSpar in the past. Currently on Lexapro. Today is the first day for the glipizide XL 5 mg....... continue sliding scale insulin for now. 3. Repeat a CBC and BMP on 4. Check a PSA Charges/Coding Visit Charges Inpatient E&M: 41063 Subs Hosp L1
--- NOTE | 2025-04-18 12:54 | CASEMGMT ---
Social Work SW phoned sister to update that TCU accepted and pt will DC on 04/22. - SW updated pt. Kasey Boyd ELECTRIC MOTOR ANALYST COSTUME DRAPER
[2025-04-18 16:03] VITALS: BMI 27.2
[2025-04-18 16:52] VITALS: BP 124/72; PULSE 98; RESP 16; TEMP 36.4; O2SAT 98
[2025-04-18 21:45] VITALS: BP 129/70; PULSE 92; RESP 16; TEMP 36.8
[2025-04-18] MEDS: Senna/Docusate Sodium 1 Tablet 2 TABLET PO (21:58)
[2025-04-19 04:26] VITALS: BMI 27.2
[2025-04-19 05:32] VITALS: BP 136/80; PULSE 97; RESP 16; TEMP 36.8; O2SAT 92
[2025-04-19 10:12] VITALS: PULSE 82
[2025-04-19] MEDS: Nicotine (PBKC) 21 MG Patch TD (10:38)
--- NOTE | 2025-04-19 10:52 | PCM.PROGNOTE ---
Subjective Subjective Afebrile VSS -Blood pressure has improved this morning at 136/80. Heart rate over the past 24 hours has ranged from 82-92.. Amlodipine was increased to 10 mg daily on 04/17/25. He is also on Cozaar 100 mg daily. He may benefit from a beta-gil. BP is only mild Maintaining appropriate oxygen saturation on RA Oral intake - FOOD good FLUIDS. The blood sugar record was reviewed. Fasting blood sugar today is 153. The last 24 hours his fast BS on was 179, lunch 144 and night 118. Glipizide was added to the drug regimen on 04/17/25. Will increase Glipizide to 7.5mg Per Dr. Valadez, Plan is to adjust oral medications as needed to get the fastings under 130 and the postprandials under 180. Discussed with nursing - pt experiencing some nausea this morning. Zofran 4mg ODT q 8 hours ordered. Cleared with Sprite and crackers. Pt did not receive Zofran. Reviewed the THERAPY notes Medication list reviewed changes made as noted above. Lasha denies lightheadedness, vertigo, CP, SOB at rest, SOB with exertion, cough, abd pain, he had 2 BM's today not given Senna, not diarrhea. Denies dysuria, calf pain and ankle swelling. Slept well last night. Good appetite. Objective Data Objective Data Vital Signs: Vital Signs Temp Pulse Resp BP Pulse Ox O2 Del Method O2 Flow Rate 98.3 F 82 16 136/80 H 92 Room Air 2 04/19/25 05:32 04/19/25 10:12 04/19/25 05:32 04/19/25 05:32 04/19/25 05:32 04/19/25 10:12 04/13/25 06:59 FiO2 21 04/14/25 07:12 Oxygen Flow Rate (L/min) 2 Oxygen Delivery Method Room Air Weight: 179 lb 12.8 oz Body Mass Index (BMI) 27.2 Intake & Output: Intake and Output for Last 24 Hours 04/17/25 04/18/25 04/19/25 23:59 23:59 23:59 Intake Total 1680 / 1680 1750 / 1750 270 / 270 Output Total 850 / 850 2275 / 2275 400 / 400 Balance 830 / 830 -525 / -525 -130 / -130 Lab / Micro Data Attestation: I reviewed the patient's lab results. Lab results narrative: reviewed blood sugar's and labs from 04/1304/20/25 06:28 04/20/25 06:28 Labs: Laboratory Results - last 24 hr 04/18/25 11:49: POC Glucose 179 H 04/18/25 16:37: POC Glucose 144 H 04/18/25 21:55: POC Glucose 118 H 04/19/25 07:04: POC Glucose 153 H Physical Exam Const alert and no apparent distress General Appearance: cooperative HEENT normocephalic Eyes Eyes Narrative: corrective lenses Neck General: trachea midline Lymph Lymphatic: no lymphadenopathy noted Resp normal respiratory effort and clear to auscultation bilaterally Resp Narrative: Clear to auscultation Effort and Inspection: Negative for tachypneic Cardio regular rate, regular rhythm and no gallops GI normal to inspection, nondistended, normoactive bowel sounds, soft to palpation and non-tender GI Narrative: No guarding with palpation Extremity no calf tenderness General Extremity: Negative for edema Skin Rashes: no rashes Psych Mood & Affect: flat affect Assessment & Plan Assessment/Plan (1) Debility: (2) CVA (cerebral vascular accident): QUALIFIERS: CVA mechanism: occlusion Laterality of affected vessel: bilateral (3) Dysarthria: (4) Diabetes: QUALIFIERS: 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 Suspect BPH but also urine retention could have resulted from amitriptyline 50 mg nightly which has been discontinued. PLAN: Plan 1. Continue therapy 2. Continue to monitor blood sugars and blood pressure closely. Goal for the blood sugars is to have a fasting less than 130 and postprandials less than 180. Goal for the blood pressure is less than 130/80. Amlodipine was just increased to 10 mg daily 04/17. If blood pressure remains uncontrolled with the increase in amlodipine to 10 mg will likely change to a beta-gil as his resting heart rate is high and I suspect he has some anxiety. Has been on BuSpar in the past. Currently on Lexapro. Increase glipizide XL 7.5 mg....... continue sliding scale insulin for now. 3. Repeat a CBC and BMP in AM 4. Check a PSA in AM Charges/Coding Visit Charges Inpatient E&M: 65076 Subs Hosp L2
--- NOTE | 2025-04-19 13:09 | CASEMGMT ---
Social Work- SW met with pt to complete IRFPAI. SW introduced self and role; pt agreeable to meet. Pt scored 12/15 on BIMS and 0/2 on PHQ. Pt reports that he is transitioning to TCU this weekend. Pt reports no needs at this time. SW remains available to follow. JAIRO Tomlinson
[2025-04-19 14:46] VITALS: BMI 27.2
[2025-04-19 17:36] VITALS: BP 128/73; PULSE 98; RESP 16; TEMP 36.7; O2SAT 94
[2025-04-19 21:45] VITALS: PULSE 98; RESP 16
[2025-04-19 21:51] VITALS: BMI 27.2
[2025-04-19] MEDS: Senna/Docusate Sodium 1 Tablet 2 TABLET PO (22:04)
[2025-04-19] MEDS: 0.9% Saline Lock 10 ML Syringe IV (22:11)
[2025-04-20 05:22] VITALS: BP 126/75; PULSE 98; RESP 15; TEMP 36.7; O2SAT 97
--- NOTE | 2025-04-20 05:24 | NURSING ---
Gallagher removed with 450cc urine. Pt tolerated well.
[2025-04-20 06:40] LABS: Hematocrit 39.6 % (40-54); Hemoglobin 14.1 g/dL (13.0-16.5); Immature Granulocytes Count 0.060 X10^3/uL (0.0-0.0); Mean Corp Hgb Conc 35.6 g/dL (32-36); Mean Corpuscular Volume 91.5 fL (80-94); Mean Platelet Vol. 10.6 fl (6.2-12.0); NRBC Flagged by Analyzer 0 % (0-5); Platelet Count 194 K/mm3 (150-450); RBC Distribution Width CV 11.9 % (11.6-14.6); RBC Distribution Width SD 39.8 fl (35.1-43.9); Red Blood Count 4.33 M/mm3 (4.6-6.2); White Blood Count 12.7 K/mm3 (4.4-11.0)
[2025-04-20 07:07] LABS: Anion Gap 10 (5-15); BUN 12 mg/dL (4-19); BUN/Creat Ratio 16.6 RATIO (10-20); Calcium,Total 9.1 mg/dL (7.6-11.0); Carbon Dioxide 21.7 mmol/L (21.0-32.0); Chloride 99 mmol/L (98-108); Estimated Creatinine Clearance 87.88 ml/min (50-250); Glucose 151 mg/dL (70-99); PSA,Total - Annual Screen 2.04 ng/mL (0.02-4.00); Potassium 4.0 mmol/L (3.3-5.1)
[2025-04-20] MEDS: glipiZIDE 2.5 MG TAB.ER.24 7.5 MG PO (08:22)
[2025-04-20] MEDS: Senna/Docusate Sodium 1 Tablet 2 TABLET PO ×2 (08:23→22:07)
[2025-04-20] MEDS: Nicotine (PBKC) 21 MG Patch TD (08:23)
--- NOTE | 2025-04-20 11:52 | PCM.PROGNOTE ---
Subjective Subjective Afebrile VSS -blood pressure over the past 24 hours has ranged from 126/75 to 136/80. The heart rate has ranged from 82-98. Maintaining appropriate oxygen saturation on RA Oral intake - FOOD good FLUIDS only took 1092 p.o. yesterday and had 1070 out for fluid balance of 22. Overnight he was -260. The blood sugar record was reviewed. Discussed with nursing - no problems that need addressed the Gallagher catheter was discontinued this morning and he has had 1 postvoid residual which was 71. Reviewed the THERAPY notes Medication list reviewed. Complained of lightheadedness to nursing today and they did orthostatics which were negative. I encouraged him to increase his fluid intake. He is forgetful. he tells me that this stroke scared him and he wants to do whatever he can to prevent additional cardiovascular events. He is not having cravings for cigarettes or cannabis. He is open to the idea of psychotherapy with me but, told the SW he was not interested. Started to tell me that he got depressed when his ex through him out. Has never had any counselling....... will give him a list of resources. All lab drawn this morning was personally reviewed. White blood cell count is mildly increased to 12.7 and this is essentially unchanged from 12.9 on 04/13/2025. Hemoglobin is 14 which indicates better hydration. Platelet count is normal. He has 70% neutrophils and a normal amount of immature granulocytes. Sodium is 131 today (he is not on a diuretic) he and the potassium is 4.0. The BUN is down to 12 from 17 on 04/13/2025. Creatinine is 0.7 which is down from 0.83 on 04/13/2025. PSA is normal at 2.04. TSH was recently 2.0. Objective Data Objective Data Vital Signs: Vital Signs Temp Pulse Resp BP Pulse Ox O2 Del Method O2 Flow Rate 98.1 F 98 15 126/75 H 97 Room Air 2 04/20/25 05:22 04/20/25 05:22 04/20/25 05:22 04/20/25 05:22 04/20/25 05:22 04/20/25 05:22 04/13/25 06:59 FiO2 21 04/14/25 07:12 Oxygen Flow Rate (L/min) 2 Oxygen Delivery Method Room Air Weight: 179 lb 12.8 oz Body Mass Index (BMI) 27.2 Intake & Output: Intake and Output for Last 24 Hours 04/18/25 04/19/25 04/20/25 23:59 23:59 23:59 Intake Total 1750 / 1750 1092 / 1092 540 / 540 Output Total 2275 / 2275 1070 / 1320 800 / 800 Balance -525 / -525 22 / -228 -260 / -260 Lab / Micro Data 04/20/25 06:28 04/20/25 06:28 Labs: Laboratory Results - last 24 hr 04/19/25 16:20: POC Glucose 156 H 04/19/25 19:55: POC Glucose 81 04/19/25 21:10: POC Glucose 120 H 04/20/25 06:21: POC Glucose 131 H 04/20/25 06:28: WBC 12.7 H, RBC 4.33 L, Hgb 14.1, Hct 39.6 L, MCV 91.5, MCH 32.6 H, MCHC 35.6, RDW Std Deviation 39.8, RDW Coeff of Gogo 11.9, Plt Count 194, MPV 10.6, Immature Gran % (Auto) 0.500, Neut % (Auto) 69.8, Lymph % (Auto) 17.6 L, [place] % (Auto) 11.3 H, Eos % (Auto) 0.2, Baso % (Auto) 0.6, Absolute Neuts (auto) 8.9 H, Absolute Lymphs (auto) 2.24, Nucleated RBC % 0, Sodium 131 L, Potassium 4.0, Chloride 99, Carbon Dioxide 21.7, Anion Gap 10, BUN 12, Creatinine 0.70, Estim Creat Clear Calc 87.88, Est GFR (MDRD) Non-Af 102, BUN/Creatinine Ratio 16.6, Glucose 151 H, Calcium 9.1, PSA Screen 2.04 04/20/25 10:46: POC Glucose 217 H Physical Exam Const alert Constitutional Narrative: forgetful. Asking me if he is allowed to get up and use the RR without calling for help. He has not been made AYDEE so I told him that he would need to call for assistance if he has to use the RR. He does not appear to be in any distress. speech is still somewhat slurred and I have difficulty understanding him at times. He is also breathy at times. General Appearance: cooperative HEENT Mouth: dry mucous membranes Resp clear to auscultation bilaterally Resp Narrative: No conversational dyspnea. Effort and Inspection: Negative for tachypneic Cardio regular rate, regular rhythm and no gallops Cardio Narrative: No ectopy GI normal to inspection, nondistended, normoactive bowel sounds, soft to palpation and non-tender Extremity no calf tenderness General Extremity: Negative for edema Skin General Skin Exam: no breakdown Rashes: no rashes Assessment & Plan Assessment/Plan (1) Debility: (2) CVA (cerebral vascular accident): QUALIFIERS: CVA mechanism: occlusion Laterality of affected vessel: bilateral (3) Dysarthria: (4) Diabetes: QUALIFIERS: Diabetes mellitus type: type 2 Diabetes mellitus residential insulin use: without superintendent container terminal use (5) YE (obstructive sleep apnea): (6) Tobacco use disorder: (7) HTN (hypertension): QUALIFIERS: Hypertension type: primary hypertension Qualified Code(s): I10 - Essential (primary) hypertension (8) Hyperlipidemia: QUALIFIERS: Hyperlipidemia type: unspecified Qualified Code(s): E78.5 - Hyperlipidemia, unspecified (9) Anxiety with depression: (10) Urine retention: (11) Cognitive dysfunction: (12) Diabetes mellitus, type 2: QUALIFIERS: Diabetes mellitus residential insulin use: without superintendent container terminal use Diabetes mellitus complication status: with other specified complication Qualified Code(s): E11.69 - Type 2 diabetes mellitus with other specified complication (13) Dysphagia: QUALIFIERS: Dysphagia type: oropharyngeal phase Qualified Code(s): R13.12 - Dysphagia, oropharyngeal phase PLAN: Plan 1. Continue therapy 2. Check a urine sodium, serum osmolality and urine osmolality. 3. Encouraged him to increase his fluid intake. 4. Discontinue sliding scale insulin and continue glipizide ER 7.5 mg daily and metformin 750 mg twice daily. 5. 30-day event monitor at discharge and then follow-up with [facility]. Last stress test was in 2018. Ejection fraction is normal but he has a few wall motion abnormalities. I suspect he likely has coronary artery disease. 6. He wants to follow-up with Dr. Barth at discharge. 7. Recommending that he not only take antidepressants but get some psychotherapy 8. Will need supervision at home for finances and medications. Will try to limit medications to twice daily to improve compliance. He does have a cell phone so may be able to set alarms for him so that he knows when to take his medications. 9. Will need ongoing therapy postdischarge. 10. Needs follow-up with neurology postdischarge from rehab.
[2025-04-20 13:34] LABS: Osmolality, Serum 279 mOsm/KG (280-301)
--- NOTE | 2025-04-20 15:33 | CASEMGMT ---
Addendum entered by Kasey Boyd 04/21/25 16:54: Added SW to [facility] order Original Note: Social Work IDT discussing pt's progress from pt's Team meeting and pt has progressed well, not needing any physical assistance. 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 IDT concluded pt can DC home, if pt and family are agreeable. - SW spoke with pt and pt prefers to DC home. pt is agreeable to either HHC or OP therapy. - RAMON phoned sister to update on progress and recommendations for home. Sister is agreeable and will assist with meds/finances. Pt is scheduled with PCP on 04/26, thus sister agreeable to start with HHC then transition to OP. RAMON offered to provide a list of [facility] agencies but sister declined and prefers [facility]. - RAMON phoned referral to [facility]. IDT updated. Plan: DC home alone 04/22, [facility] PT/OT/ST/SN/CARBAJAL Kasey Boyd [employer]
[2025-04-20 16:13] LABS: Osmolality, Urine 805 mOsm/KG
[2025-04-20 16:58] VITALS: BMI 27.2
[2025-04-20 17:13] VITALS: BP 149/74; PULSE 102; RESP 16; TEMP 36.3; O2SAT 98
[2025-04-20 18:09] LABS: Mucous, Urine 0 SEEN /hpf (<or=2+); Squamous Epithelial Cells - UA 0 SEEN /hpf (0-5)
[2025-04-20 18:10] LABS: Color, Urine Yellow (Yellow); Glucose, Dipstick Normal (Normal); Ketone-Dipstick Negative (Negative); Leukocyte Esterase-Dipstick Negative /ul (Negative); Nitrite-Dipstick Negative (Negative); Occult Blood-Urine 250 /ul (Negative); Protein-Dipstick Negative (Negative); Specific Gravity, Urine 1.005 (1.002-1.030); Urine Bilirubin Dipstick Negative (Negative)
[2025-04-20 18:18] LABS: Red Blood Cells-Urine 0-5 SEEN /hpf (0-5)
[2025-04-20 21:20] VITALS: BMI 27.2
[2025-04-21 06:00] VITALS: BP 119/72; PULSE 101; RESP 16; TEMP 36.4; O2SAT 94; BMI 26.9
[2025-04-21] MEDS: Nicotine (PBKC) 21 MG Patch TD (07:41)
[2025-04-21] MEDS: Senna/Docusate Sodium 1 Tablet 2 TABLET PO ×2 (07:41→20:53)
[2025-04-21] MEDS: glipiZIDE 2.5 MG TAB.ER.24 7.5 MG PO (07:41)
--- NOTE | 2025-04-21 16:13 | DCINST_ITS ---
Discharge Instructions DC O2, CPAP, BIPAP needs Home O2 Discharge instructions: No Dressing / Incision Weight Bearing Status: Full weight bearing Keep extremity elevated above heart level: Legs Dressing / Incision Call your doctor if you observe: Fever of 101 or Higher, Inability to urinate, Shortness of breath, Dizziness, Fainting spells, Swelling in the ankles, Chest pain, Increased palpitations (irregular heartbeat), Calf discomfort, Uncontrolled pain and - (STROKE symptoms: facial droop, slurred speech, inability to get words out, weakness on 1 side of the body and not the other, numbness on 1 side of the body and not the other, inability to maintain your balance sitting or standing, vertigo. ) Follow Up Care When: Appts have been made for you with Dr. Barth, Cheryl Akers NP (neurology) and [facility]. They are listed later in this document. Test Results: Test results from this visit will be discussed in further detail at your follow- up appointment, if applicable. Pending Tests Upon Discharge: none Discharge Plan Admission Admit Date/Time: 04/12/25 12:03 Primary Reason for Your Visit: Post stroke debility Attending Provider: Breanna Valadez Primary Care Provider: Padmini Barth Instructions Patient Instructions: Discharge Instructions for Stroke Additional Instructions / Restrictions: 1. You had some urine retention while on rehab and you had to have a catheter inserted. We checked for a urinary tract infection and you did not have infection. I checked your PSA (prostate-specific antigen) and it is normal. I suspect the urine retention was secondary to amitriptyline because urine retention is a big side effect with amitriptyline. This medication was discontinued. He will continue to take Lexapro for depression. 2. You were jalen this time and your deficits from the stroke are mild. you have not been taking very good care of yourself and you had stopped taking all of your medications. You have been smoking cigarettes and marijuana and the combination of smoking, diabetes, high blood pressure and high cholesterol lead to the stroke. If you want to prevent additional strokes/heart attacks from happening you will need to take better care of yourself. I am prescribing a nicotine patch for you to help with smoking cessation. IF you start to have cravings for cigarettes again when you are discharged from rehab the hospital has a smoking cessation program and all you need to do is call to the hospital and asked to be put through to the smoking cessation coordinator. The HGBA1C (a lab test to see how your blood sugars have been doing over the previous 3 months) should always be less than 7. The LDL (bad cholesterol) should be 70 or less. your blood pressure should be less than 130/80. If you can comply with these goals you will significantly lower your risk for additional strokes. 3. You are depressed and you stopped taking the antidepressants. Depressed people do not take care of themselves and often get ill because of this. Often people do not recover from depression with medication alone. Medication AND counselling when used together are the best way to treat depression. The psychosocial rehabilitation counselor gave you a list of area agencies where you can get counselling.......I strongly suggest you call one of the providers and get an appt to be seen for depression. 4. Since you lost weight the sleep apnea is much better. We checked your blood oxygen when you were sleeping and it did not drop significantly so you no longer need treatment for sleep apnea..........do not start gaining weight again. 5. Your blood sugars are well controlled now. Stick to a low fat, low salt, carbohydrate controlled diet. to keep them well controlled and take your medications exactly as prescribed. The stroke caused some cognitive dysfunction and you should have help setting up your pill boxes for the next couple weeks to make sure you are doing it correctly. You also should have family help you with finances. 6. You had an ultra sound of your heart while in the hospital and this is called an ECHO. your heart squeezes good BUT, there are a few areas that do not contract as well as others........this can come from coronary artery disease. Since you have disease in the arteries in your brrain you likely have disease in the arteries in your heart. We are referring you to a fisher hand line and they will likely want to get a stress test to evaluate you for coronary artery disease (narrowing of the arteries supplying the heart). An appt has been made for you to follow up with [facility] in the hospital here on the 3rd floor. 7. You will be following up with neurology for the stroke and you have an appt scheduled for you to see Cheryl Akers who is an ALUMINUM POOL INSTALLER who works with the neurologist who is Dr. Damon Pemberton. The office is here in [place]. 8. You should start checking your blood sugars again. If you no longer have a glucometer discuss this with Dr. Barth. 9. If you or Lyn or Jessica have any questions after you leave rehab please do not hesitate to call me. Good luck Lasha and take care of your self. OFFICE: [phone] CELL: [phone] NURSES STATION ON REHAB: [phone] Discharge Orders/Prescriptions Prescriptions: New atorvastatin 80 mg Tablet 80 mg PO QHS Qty: 30 0RF acetaminophen 325 mg Tablet 650 mg PO Q6H PRN PRN (Reason: Pain Score 1-10) Qty: 1 0RF amlodipine 10 mg Tablet 10 mg PO DAILY Qty: 30 0RF metformin 500 mg Tablet 750 mg PO BIDCM Qty: 90 0RF Rx Instructions: 1 and 1/2 tabs twice a day. tamsulosin 0.4 mg Capsule 0.4 mg PO DAILY@1730 Qty: 30 0RF Rx Instructions: This medication is for prostate and helps with urine retention. glipizide 2.5 mg Tablet Extended Release 24hr 7.5 mg PO BREAKFAST Qty: 30 0RF pantoprazole 40 mg Tablet,Delayed Release (Dr/Ec) 40 mg PO DAILY Qty: 30 0RF nicotine 21 mg/24 hr Patch 24 Hour 21 mg transdermal DAILY Qty: 28 0RF Continued aspirin 81 mg Tablet,Chewable 81 mg PO BREAKFAST Qty: 0 0RF clopidogrel 75 mg Tablet 75 mg PO DAILY Qty: 21 0RF losartan 100 mg tablet 100 mg PO DAILY Qty: 30 0RF escitalopram oxalate 20 mg tablet 20 mg PO QHS Qty: 30 0RF Discontinued amitriptyline 50 mg tablet 50 mg PO QHS metformin 500 MG tablet 500 mg PO DAILY Patient Comments: blood sugar amlodipine 5 mg tablet 5 mg PO DAILY Qty: 90 0RF atorvastatin [Lipitor] 40 mg tablet 40 mg PO QHS Qty: 90 0RF Referrals / Follow Up: [facility] [Provider Group] - 04/25/25 4:00 pm Padmini Barth DO [Primary Care Provider, Internal Medicine] - 04/26/25 3:30 pm Cheryl Akers NP-C [Med Staff - [facility] Practice Prof, Neurology] - 05/01/25 2:30 pm Disposition Disposition (needs filled in before D/C Order can be placed): Home Health Service
[2025-04-21 16:45] VITALS: BMI 26.9
--- NOTE | 2025-04-21 17:06 | EX.DISCHREH ---
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 to his home but he has significant cognitive dysfunction and I do not know if this is true. Another prescription was written for 30-day event monitor if he does not have 1 already at home. He also has segmental wall motion abnormalities on his transthoracic echocardiogram with multiple risk factors for coronary artery disease and multiple strokes. I suspect he has CAD. He was told at the time of discharge that he is not allowed to drive. A referral was made to the drivers rehab program at [facility] and the referral is good for 3 months. When he and his therapist feel that he may be able to drive he should go there to be tested to see if he is fit to drive. I am concerned about the severe cognitive dysfunction with only scoring 25 out of a possible 50 on the brief cognitive assessment tool. He was instructed to discontinue all smoking.....cigarettes and marijuana. He was referred to the smoking cessation program at [facility] should he start to have cravings for cigarettes again.
[2025-04-21 17:33] VITALS: BP 128/72; PULSE 98; RESP 16; TEMP 36.8; O2SAT 96
[2025-04-21 23:21] VITALS: BMI 26.9
[2025-04-22 05:10] VITALS: BP 135/69; PULSE 95; RESP 18; TEMP 36.6; O2SAT 95
[2025-04-22 07:14] LABS: Anion Gap 11 (5-15); BUN 14 mg/dL (4-19); BUN/Creat Ratio 17.6 RATIO (10-20); Calcium,Total 9.2 mg/dL (7.6-11.0); Carbon Dioxide 22.4 mmol/L (21.0-32.0); Chloride 100 mmol/L (98-108); Estimated Creatinine Clearance 87.88 ml/min (50-250); Glucose 117 mg/dL (70-99); Potassium 4.1 mmol/L (3.3-5.1)
[2025-04-22] MEDS: glipiZIDE 2.5 MG TAB.ER.24 7.5 MG PO (08:48)
[2025-04-22] MEDS: Nicotine (PBKC) 21 MG Patch TD (08:49)
[2025-04-22] MEDS: Senna/Docusate Sodium 1 Tablet 2 TABLET PO (08:49)
[2025-04-22 12:00] VITALS: BP 119/68; PULSE 71; TEMP 36.3; O2SAT 96
[2025-04-22 12:45] VITALS: BMI 26.9
== END 2025-04-22 12:00 | disposition home health service (06) | DRG 57 ==
PROVIDERS: Nurse Practitioner Family; Admitting Provider Internal Medicine; PCP Internal Medicine; Referring Provider Internal Medicine; Visit Provider Internal Medicine
DX: I69.322 Dysarthria following cerebral infarction (principal); I69.393 Ataxia following cerebral infarction; E11.49 Type 2 diabetes mellitus with other diabetic neurological complication; I10 Essential (primary) hypertension; G25.81 Restless legs syndrome; I35.1 Nonrheumatic aortic (valve) insufficiency; F41.8 Other specified anxiety disorders; K21.9 Gastro-esophageal reflux disease without esophagitis; K11.8 Other diseases of salivary glands; H53.2 Diplopia; F17.210 Nicotine dependence, cigarettes, uncomplicated; G47.33 Obstructive sleep apnea (adult) (pediatric); I25.10 Atherosclerotic heart disease of native coronary artery without angina pectoris; E78.5 Hyperlipidemia, unspecified; F12.90 Cannabis use, unspecified, uncomplicated; F09 Unspecified mental disorder due to known physiological condition; Z79.84 Long term (current) use of oral hypoglycemic drugs; Z91.148 Patient's other noncompliance with medication regimen for other reason; R33.8 Other retention of urine; Z79.82 Long term (current) use of aspirin; R13.12 Dysphagia, oropharyngeal phase; Z79.899 Other long term (current) drug therapy; Z79.02 Long term (current) use of antithrombotics/antiplatelets; N40.1 Benign prostatic hyperplasia with lower urinary tract symptoms; Z86.011 Personal history of benign neoplasm of the brain
CPT/HCPCS: 36415; 74230; 80048; 80053; 81001; 82043; 82570; 82962; 83735; 83930; 83935; 84100; 84153; 84300; 85025; 87077; 87086; 87088; 87186; 92507; 92526; 92610; 92611; 94668; 94762; 97110; 97112; 97116; 97162; 97167; 97530; 97535; 97803; 99406; A4216; G0103

== ENCOUNTER 2025-04-22 15:18 | Emergency (ER) | payer MEDICARE, SELFPAY ==
[2025-04-22 15:19] VITALS: BP 122/70; PULSE 98; RESP 18; TEMP 36.9; O2SAT 93; BMI 28.0
--- NOTE | 2025-04-22 15:27 | EKG12_ITS ---
Test Reason : O Blood Pressure : */* mmHG Vent. Rate : 98 BPM Atrial Rate : 98 BPM P-R Int : 150 ms QRS Dur : 94 ms QT Int : 368 ms P-R-T Axes : 49 -3 28 degrees QTcB Int : 469 ms Normal sinus rhythm Normal ECG Confirmed by LATHA LEARY, ROSARIO ([id number]), script editor CLAU TERRAZAS ([id number]) on 04/24/2025 9:23:51 AM Referred By: Confirmed By: ROSARIO AZUL MD
--- NOTE | 2025-04-22 15:55 | CT_ITS ---
PROCEDURE: CTA HEAD AND NECK W/ CONTRAST 04/22/2025 REASON FOR EXAM: SYNCOPE, FALL, HEAD TRAUMA TECHNIQUE: Procedure Code: CTCTA.HDNCK Modality: CT Procedure: CTA HEAD AND NECK W/ CONTRAST Multiplanar Sagittal and Coronal images were obtained. 3D reconstructions CONTRAST: Isovue 370 VOLUME: 100 mL One or more dose reduction techniques were used (e.g., Automated exposure control, adjustment of the mA and/or kV according to patient size, use of iterative reconstruction technique). RADIATION DOSE SUMMARY: CTDlvol: ? MGy DLP: 3268 mGycm FINDINGS: The aortic arch is normal in caliber. The contrast bolus is poor within the arteries. There is calcified plaque at both carotid bifurcations without hemodynamically significant stenosis. There is no cervical carotid dissection. Normal precavernous and cavernous carotid artery caliber. Normal right M1, left M1 and bilateral M2 branches are patent. There is no DAV occlusion. No evidence of CASSANDRA ARCHITECT occlusion. No basilar stenosis. The right vertebral artery is dominant. There is no cervical vertebral narrowing. No soft tissue masses are identified. There has been a prior right frontotemporal craniotomy with encephalomalacia. There is no evidence of dural sinus thrombosis. CT/CTA Head AND Neck W/ Contrast IMPRESSION: No significant arterial occlusion or stenosis Reading Location[facility]
--- NOTE | 2025-04-22 15:55 | CT_ITS ---
PROCEDURE: SPINE CERVICAL WITHOUT CONTRAS 04/22/2025 REASON FOR EXAM: FALL, SYNCOPE, HEAD TRAUMA TECHNIQUE: Procedure Code: CTSPC Modality: CT Procedure: SPINE CERVICAL WITHOUT CONTRAS Coronal and Sagittal reconstruction series were provided. One or more dose reduction techniques were used (e.g., Automated exposure control, adjustment of the mA and/or kV according to patient size, use of iterative reconstruction technique. RADIATION DOSE SUMMARY: CTDlvol: ? MGy DLP: 3268 mGycm FINDINGS: Normal cervical vertebral body height and alignment. No subluxation or compression deformity. Normal odontoid process. Occipital condyles, C1 ring in the C2 vertebra appear intact. Axial images demonstrate no disruption of the pedicles, lamina or facets. No soft tissue airway compromise is seen. CT/Spine Cervical without Contras IMPRESSION: Negative for fracture Reading Location: [facility]
--- NOTE | 2025-04-22 15:55 | CT_ITS ---
PROCEDURE: BRAIN/HEAD WITHOUT CONTRAST 04/22/2025 REASON FOR EXAM: SYNCOPE, RECENT STROKE TECHNIQUE: Procedure Code: CTBR Modality: CT Procedure: BRAIN/HEAD WITHOUT CONTRAST Coronal and Sagittal reconstruction series were provided. One or more dose reduction techniques were used (e.g., Automated exposure control, adjustment of the mA and/or kV according to patient size, use of iterative reconstruction technique. RADIATION DOSE SUMMARY: CTDlvol: ? MGy DLP: 3268 mGycm COMPARISON: MRI 04/10/2025 FINDINGS: Prior right frontotemporal craniotomy with encephalomalacia. No intracranial hemorrhage. The lacunar infarcts identified in MR are not visible on CT. However, there is no acute infarct, hemorrhage or edema. CT/Brain/Head without Contrast IMPRESSION: No acute findings currently. Please refer to recent MRI. Reading Location: [facility]
--- NOTE | 2025-04-22 15:59 | EX.ED.DYSGE1 ---
HPI History of Present Illness Chief Complaint: Syncope Narrative Narrative: Patient is a 64-year-old male presenting to the emergency department for a syncopal episode. Patient has a past medical history of CVA, hypertension, hyperlipidemia, YE, GERD, noncompliance with medication, type 2 diabetes, LVH, cognitive dysfunction and dysarthria. Patient was recently admitted here and discharged today at noon for CVA. CVA was verified on MRI imaging. Was supposed to go to TCU but the social services manager? reportedly thought he could go home with good family support. Reportedly his family member picked him up from the hospital and then they went to lunch and he ate well. They then went to [employer] to pepper picker some groceries. Reportedly they were going to check out and he was holding onto the cart. He then felt lightheaded then flushed and lost consciousness. He did fall to the ground. They state he was unconscious for less than 30 seconds. He denies any abnormal chest pain, shortness of breath, abdominal pain, nausea or vomiting. Denies any focal numbness or weakness. Denies fever or chills. 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 YE (obstructive sleep apnea) GERD (gastroesophageal reflux disease) TIA (transient ischemic attack) Tobacco use disorder HTN (hypertension) Hyperlipidemia Home Medications Medication Instructions Recorded Last Taken Type aspirin 81 mg chewable tablet 81 mg PO BREAKFAST heart health #0 04/12/25 04/12/25 Rx tabs acetaminophen 325 mg tablet 650 mg (2 x 325 mg) PO Q6H PRN PRN 04/21/25 Unknown Rx Pain Score 1-10 #1 TAB amlodipine 10 mg tablet 10 mg PO DAILY Blood pressure #30 04/21/25 Unknown Rx tabs atorvastatin 80 mg tablet 80 mg PO QHS Cholesterol #30 tabs 04/21/25 Unknown Rx clopidogrel 75 mg tablet 75 mg PO DAILY AFIB #21 tabs 04/21/25 Unknown Rx escitalopram oxalate 20 mg tablet 20 mg PO QHS mental health #30 tabs 04/21/25 Unknown Rx glipizide 2.5 mg tablet, extended 7.5 mg (3 x 2.5 mg) PO BREAKFAST 04/21/25 Unknown Rx release 24 hr Diabetes #30 tabs losartan 100 mg tablet 100 mg PO DAILY blood pressure #30 04/21/25 Unknown Rx tabs metformin 500 mg tablet 750 mg (1.5 x 500 mg) PO BIDCM 04/21/25 Unknown Rx Diabetes #90 tabs nicotine 21 mg/24 hr daily 21 mg transdermal DAILY Smoking 04/21/25 Unknown Rx transdermal patch cessation #28 ea pantoprazole 40 mg tablet,delayed 40 mg PO DAILY GERD #30 tabs 04/21/25 Unknown Rx release tamsulosin 0.4 mg capsule 0.4 mg PO DAILY@1730 Prostate #30 04/21/25 Unknown Rx caps Allergy/AdvReac Type Severity Reaction Status Date / Time Sulfa (Sulfonamide Allergy Severe Hives, Verified 04/22/25 15:30 Antibiotics) Sweating, SOB Family History Father CAD (coronary artery disease) Myocardial infarction Hypertension Heart disease Mother Heart disease Atrial arrhythmia Surgical History S/P laparoscopic appendectomy H/O cystoscopy S/P herniorrhaphy history of benign tumor of parotid gland History of brain surgery History of arthroscopy of right knee History of left knee surgery History of lumbar surgery Social History household members: none Smoking Status: Current every day smoker tobacco type: cigarettes alcohol intake: never substance use type: marijuana ROS ROS ED ROS Narrative see HPI EXAM Physical Exam Narrative Exam Narrative: Vital signs: Reviewed General: Alert and orientedx3. No acute distress. Disheveled appearing. Chronically ill-appearing. Soft-spoken. Falls asleep frequently on evaluation. HEENT: Head is normocephalic and atraumatic, sinuses nontender, pupils equal round and reactive. Nares are patent. Oropharynx and throat exams normal. Neck: Supple without lymphadenopathy nontender Cardiovascular: Regular rate and rhythm, no murmurs. No rubs or gallops. Normal S1 and S2 Respiratory: Coarse lung sounds in the left upper and lower lung walker. Right lung sounds are clear. No wheezing. Abdominal: Soft and nontender. Normal bowel sounds. No guarding or rebound. Nonsurgical abdomen Extremities: No tenderness. No bruising. Normal range of motion. Normal sensation. Skin: No rash or redness. Neurological: Cranial nerves II through XII are grossly intact. Normal strength and sensation. Normal cerebellar function The rest of the physical exam is unremarkable Const Vital Signs: 04/22/25 15:19 04/22/25 15:43 04/22/25 17:06 Temperature 98.5 F 98.2 F Temperature Source Oral Oral Pulse Rate 98 92 Respiratory Rate 18 26 H Respiratory Effort Normal Respiratory Pattern Normal Blood Pressure 122/70 H 116/68 Blood Pressure Mean 87 84 Pulse Ox 93 95 Oxygen Delivery Method Room Air Room Air 04/22/25 17:59 04/22/25 19:00 04/22/25 19:39 Temperature 97.9 F 99.0 F Temperature Source Oral Pulse Rate 93 95 97 Respiratory Rate 22 H 23 H 23 H Respiratory Effort Respiratory Pattern Blood Pressure 134/76 H 134/77 H 144/87 H Blood Pressure Mean 95 96 106 Pulse Ox 95 94 94 Oxygen Delivery Method Room Air NIHSS NIHSS Initial: 1a Level of Consciousness: 0 1b LOC Questions (Score 2 if aphasic/stupor): 0 1c LOC Commands (Only score 1st attempt): 0 2 Best Gaze (If aphasic, use reflexive mvmts.): 0 3 Visual: 0 4 Facial Palsy: 0 5 Motor Arm Right (UN = amputation/fusion): 0 5 Motor Arm Left: 0 6 Motor Leg Right: 0 6 Motor Leg Left: 0 7 Limb ataxia (Only + if out of proportion): 0 8 Sensory (Aphasia/stupor=0 or 1, coma=2): 0 9 Best Language: 0 10 Dysarthria (mute, coma=2, intubated=UN): 0 11 Extinction and Inattention (only scored if +): 0 Total Score: 0 MDM MDM MDM Narrative Medical decision making narrative: Patient is a 64-year-old male presenting to the emergency department for syncopal episode. Patient was seen and examined. Vitals are stable. Patient resting in bed comfortably no acute distress. Patient given fluid bolus. Patient reports prodromal symptoms prior to the syncopal episode including lightheadedness and flushing. He denies any chest pain, shortness of breath or abdominal pain. Neurologic exam is unremarkable, NIH of 0. Given the patient's recent hospitalization he is at risk for infection including UTI and pneumonia. With his recent stroke and syncopal episode today we will obtain a CT brain, CTA of the head and neck and CT cervical spine given he did fall and likely struck his head. Will also obtain electrolytes, troponin and ekg to rule out ACS of the cause of syncope. Given the patients frequent verbal stimulation to awaken will obtain VBG to rule out resp acidosis. EKG shows normal sinus rhythm with no ischemic changes. No dysrhythmia. VBG with normal pH of 7.352. pCO2 38. Bicarb of 21. CBC with a mild nonspecific leukocytosis of 15.2. 2 days ago was 12.7 for comparison. Normal hemoglobin. BMP with a mild anion gap of 18 bicarb 17.3. Lactic within normal limits. Glucose of 128. Urinalysis with no evidence of UTI. Urine drug screen positive for marijuana. Alcohol level negative. Magnesium and TSH within normal limits. Troponin reflex of 2825, no significant delta change. CT the brain with no acute findings. CT cervical spine with no acute fractures. CTA of the head and neck shows no significant arterial occlusion or stenosis. CTA of the chest shows no evidence of pulmonary embolism. No pneumonia seen. On reevaluation the patient is much more awake and interactive. He was talking with family at bedside when I entered the room. I updated family and patient on fairly unremarkable workup. The patient was supposed to go to TCU today upon discharge but it was determined that he did not need it after discussion with family and patient. Upon further discussion here, family and patient would feel most comfortable with going to TCU where his bed is still available. Think this is appropriate, the patient has no significant lab or imaging abnormalities that requires inpatient admission and patient would benefit from rehab before discharge home. Clinical impression: Syncope Fall History & Record Review Discussion w/independent historian: Patient and Family Additional record(s) reviewed:: Prior inpatient record, Prior ED visit and Prior labs Lab Data Attestation: I reviewed the patient's lab results. Labs: Laboratory Results - last 24 hr 04/22/25 04/22/25 16:08 17:50 WBC 15.2 H RBC 4.54 L Hgb 15.0 Hct 41.8 MCV 92.1 MCH 33.0 H MCHC 35.9 RDW Std Deviation 40.9 RDW Coeff of Gogo 12.0 Plt Count 251 MPV 11.3 Immature Gran % (Auto) 0.500 Neut % (Auto) 70.6 H Lymph % (Auto) 15.6 L [place] % (Auto) 12.8 H Eos % (Auto) 0.1 Baso % (Auto) 0.4 Absolute Neuts (auto) 10.7 H Absolute Lymphs (auto) 2.36 Nucleated RBC % 0 Differential Comment SCANNED Platelet Estimate ADEQUATE Sodium 134 Potassium 4.0 Chloride 98 Carbon Dioxide 17.3 L Anion Gap 18 H BUN 17 Creatinine 0.97 Estim Creat Clear Calc 78.92 Est GFR (MDRD) Non-Af 87 BUN/Creatinine Ratio 17.8 Glucose 128 H Lactic Acid 1.8 Calcium 9.8 Magnesium 1.9 Troponin T High Sens 28 H D Troponin T Hi Sens 2 Hr 25 H TSH 2.420 Urine Color Yellow Urine Clarity Clear Urine pH 6.0 Ur Specific [place] 1.010 Urine Protein 30 H Urine Glucose (UA) Normal Urine Ketones 15 H Urine Occult Blood 10 H Urine Nitrite Negative Urine Bilirubin Negative Urine Urobilinogen Normal Ur Leukocyte Esterase Negative Urine RBC 0-5 SEEN Urine WBC 0-5 SEEN Ur Squamous Epith Cells 0-5 SEEN Urine Bacteria 0 SEEN Urine Mucus 0 SEEN Urine Opiates Screen NEGATIVE U Buprenorphine Qual NEGATIVE Ur Oxycodone Screen NEGATIVE Urine Methadone Screen NEGATIVE Urine Fentanyl Screen NEGATIVE Ur Barbiturates Screen NEGATIVE Ur Phencyclidine Scrn NEGATIVE Ur Amphetamines Screen NEGATIVE U Benzodiazepines Scrn NEGATIVE Urine Cocaine Screen NEGATIVE U Cannabinoids Screen PRESUMPTIVE POSITIVE Ethyl Alcohol < 10.1 ABG Data ABG results: ABG 04/22/25 16:39 Specimen Type WILMAR Sample Site Not entered VBG pH 7.35 VBG pO2 29 VBG HCO3 21 L VBG Total CO2 22 L VBG O2 Sat (Calc) 53 VBG Base Excess -4 L POC Mix VBG pCO2 Pt Tmp 38.3 L O2 Delivery Device Not entered Radiography Diagnostic Testing: Clinical Impression(s) from Imaging Studies Brain CT 04/22/25 15:55 IMPRESSION: No acute findings currently. Please refer to recent MRI. Reading [facility] Cervical Spine CT 04/22/25 15:55 IMPRESSION: Negative for fracture Reading [facility] Head/Neck CTA 04/22/25 15:55 IMPRESSION: No significant arterial occlusion or stenosis Reading Location: [facility] Chest CTA 04/22/25 16:04 IMPRESSION: No acute abnormality is seen. Negative for pulmonary embolism Reading Location: [facility] Discharge Plan Triage Chief Complaint: Syncope ED Provider: Khadijah Seymour Dx/Rx/DC Orders Clinical Impression: Syncope, Adult failure to thrive, Fall Instructions: ED Fainting, Uncertain Cause, ED FALL-from [id number] Prescriptions: No Action aspirin 81 mg Tablet,Chewable 81 mg PO BREAKFAST Qty: 0 0RF atorvastatin 80 mg Tablet 80 mg PO QHS Qty: 30 0RF acetaminophen 325 mg Tablet 650 mg PO Q6H PRN PRN (Reason: Pain Score 1-10) Qty: 1 0RF amlodipine 10 mg Tablet 10 mg PO DAILY Qty: 30 0RF metformin 500 mg Tablet 750 mg PO BIDCM Qty: 90 0RF Rx Instructions: 1 and 1/2 tabs twice a day. tamsulosin 0.4 mg Capsule 0.4 mg PO DAILY@1730 Qty: 30 0RF Rx Instructions: This medication is for prostate and helps with urine retention. glipizide 2.5 mg Tablet Extended Release 24hr 7.5 mg PO BREAKFAST Qty: 30 0RF pantoprazole 40 mg Tablet,Delayed Release (Dr/Ec) 40 mg PO DAILY Qty: 30 0RF nicotine 21 mg/24 hr Patch 24 Hour 21 mg transdermal DAILY Qty: 28 0RF clopidogrel 75 mg Tablet 75 mg PO DAILY Qty: 21 0RF losartan 100 mg tablet 100 mg PO DAILY Qty: 30 0RF escitalopram oxalate 20 mg tablet 20 mg PO QHS Qty: 30 0RF Primary Care Provider: Padmini Barth Referrals: Padmini Barth DO [Primary Care Provider, Internal Medicine] Activity Restrictions/Additional Instructions: Go straight to TCU. Print Language: Japanese Disposition Disposition: Fdc Facility Discharge Location: [facility] Transitional Care Unit Discharge Date/Time: 04/22/25 20:16
--- NOTE | 2025-04-22 16:04 | CT_ITS ---
PROCEDURE: CTA CHEST W/WO CONTRAST 04/22/2025 REASON FOR EXAM: RULE OUT PE, SYNCOPE, RECENTLY ADMITTED TECHNIQUE: Procedure Code: [id number] Modality: CT Procedure: CTA CHEST W/WO CONTRAST Multiplanar Sagittal and Coronal images were obtained. Three-dimensional reconstructions The amount of contrast given is not specified One or more dose reduction techniques were used (e.g., Automated exposure control, adjustment of the mA and/or kV according to patient size, use of iterative reconstruction technique). RADIATION DOSE SUMMARY: CTDlvol: ? MGy DLP: 3268 mGycm FINDINGS: The angiographic examination demonstrates normal caliber of the thoracic aorta without aneurysm or dissection. Minimal coronary artery calcification. No pericardial fluid. No mediastinal mass. No pericardial fluid. There is no evidence of pulmonary embolus. The upper abdomen demonstrates no significant abnormality. CT/CTA Chest W/WO Contrast IMPRESSION: No acute abnormality is seen. Negative for pulmonary embolism Reading Location: [id number]
[2025-04-22] MEDS: 0.9% Normal Saline (1000mL) 1,000 ML 1000 ML IV (16:05)
--- OUTSIDE RECORDS SUMMARY | 2025-04-22 16:28 | XMS RPT_ITS | CCD ---
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 above: Performed By: #### L 501.5200, L505.5000 #### [facility] [address] [place], [address] THC Positive Normal < 50 ng/mL [facility] Comment on above: Result Comment: If c onfirmation testing is needed, a separate order will be required to send out testing to the reference laboratory. Performed By: #### L 501.5200, L505.5000 #### [facility] [address] [place], [address] 12 Lead EKGon 04-06-2025 12 Lead EKG [facility] [address] [place] [address] 12 Lead EKG 04/06/25 1134 MR#: [id number] Acct: [id number] Name: LASHA SMITH Rep #: [id number] : 1960 64 From: Gume Reyes MD Attending Dr: Status: DEP ER Ordering Dr: Khadijah Seymour MD Date: 04/06/25 Location: ED Sex: M C Admitted: Test Reason : CP Blood Pressure : */* mmHG Vent. Rate : 104 BPM Atrial Rate : 104 BPM P-R Int : 148 ms QRS Dur : 88 ms QT Int : 358 ms P-R-T Axes : 75 45 43 degrees QTcB Int : 470 ms Sinus tachycardia Otherwise normal ECG Confirmed by LATHA LEARY, GUME ([id number]), advertising editor CLAU TERRAZAS ([id number]) on 04/08/2025 8:00:02 AM Referred By: Confirmed By: GUME REYES MD 04/08/25 0800 Date Gume Reyes MD CC: EXCEL DEVELOPER-C Lyric Weaver; Dr. Khadijah Seymour MD Signed Normal [facility] Basic Metabolic Profile (BMP )on 04-06-2025 BUN/CRE 14.9 RATIO Normal 03-27 [facility] Comment on above: Performed By: #### L 501.5200, L505.5000 #### [facility] [address] [place], [address] Calcium [Mass/Vol] 10.1 mg/dL Normal 7.6-11.0 [facility] Comment on above: Performed By: #### L 501.5200, L505.5000 #### [facility] [address] [place], [address] Chloride [Moles/Vol] 97 mmol/L Low 98-108 [facility] Comment on above: Performed By: #### L 501.5200, L505.5000 #### [facility] [address] [place], [address] CO2 [Moles/Vol] 24.1 mmol/L Normal 21.0-32.0 [facility] Comment on above: Performed By: #### L 501.5200, L505.5000 #### [facility] [address] [place], [address] Creatinine [Mass/Vol] 0.72 mg/dL Normal 0.70-1.20 [facility] Comment on above: Performed By: #### L 501.5200, L505.5000 #### [facility] [address] [place], [address] ECRCL 99.49 ml/min Normal 50-250 [facility] Comment on above: Performed By: #### L 501.5200, L505.5000 #### [facility] [address] [place], [address] GAP 13 Normal 5-15 [facility] Comment on above: Performed By: #### L 501.5200, L505.5000 #### [facility] [address] [place], [address] GFR/1.73 sq M.predicted among non-blacks MDRD (S/P/Bld) [Vol rate/Area] 101 mL/min/{1.73_m2} Normal >60 [facility] Comment on above: Result Comment: mL/m in/1.73m2 CKD-EPI Creatinine Equation (2020) Performed By: #### L 501.5200, L505.5000 #### [facility] [address] [place], [address] Glucose [Mass/Vol] 181 mg/dL High 70-99 [facility] Comment on above: Performed By: #### L 501.5200, L505.5000 #### [facility] [address] [place], [address] Potassium [Moles/Vol] 4.2 mmol/L Normal 3.3-5.1 [facility] Comment on above: Performed By: #### L 501.5200, L505.5000 #### [facility] [address] [place], [address] Sodium [Moles/Vol] 134 mmol/L Normal 133-145 [facility] Comment on above: Performed By: #### L 501.5200, L505.5000 #### [facility] [address] [place], [address] Urea nitrogen [Mass/Vol] 11 mg/dL Normal 4-19 [facility] Comment on above: Performed By: #### L 501.5200, L505.5000 #### [facility] [address] [place], [address] CBC W/Diff, Automatedon 10-3 0-2025 Absolute Lymph 1.73 X10 3/uL Normal 0.83-4.51 [facility] Comment on above: Performed By: #### L 501.5200, L505.5000 #### [facility] [address] [place], [address] Absolute Neut 7.4 X10 3/uL Normal 2.0-7.7 [facility] Comment on above: Performed By: #### L 501.5200, L505.5000 #### [facility] [address] [place], [address] Basophils/100 WBC (Bld) 0.5 % Normal 0-1 [facility] Comment on above: Performed By: #### L 501.5200, L505.5000 #### [facility] [address] [place], [address] Eosinophils/100 WBC (Bld) 0.1 % Normal 0-5 [facility] Comment on above: Performed By: #### L 501.5200, L505.5000 #### [facility] [address] [place], [address] Erythrocyte distribution width (RBC) [Ratio] 12.9 % Normal 11.6-14.6 [facility] Comment on above: Performed By: #### L 501.5200, L505.5000 #### [facility] [address] [place], [address] Hematocrit (Bld) [Volume fraction] 49.9 % Normal 40-54 [facility] Comment on above: Performed By: #### L 501.5200, L505.5000 #### [facility] [address] [place], [address] Hemoglobin (Bld) [Mass/Vol] 17.4 g/dL High 13.0-16.5 [facility] Comment on above: Performed By: #### L 501.5200, L505.5000 #### [facility] [address], [address] IG% 0.400 Normal 0.0-0.9 [facility] Comment on above: Result Comment: IG% - Immature Granulocytes (promyelocytes, myelocytes and metamyelocytes) > 1% indicates that a LEFT SHIFT is Present. Performed By: #### L 501.5200, L505.5000 #### [facility] [address] [place], [address] Lymphocytes/100 WBC (Bld) 17.0 % Low 19-41 [facility] Comment on above: Performed By: #### L 501.5200, L505.5000 #### [facility] [address] [place], [address] MCH (RBC) [Entitic mass] 32.6 pg High 27.0-32.0 [facility] Comment on above: Performed By: #### L 501.5200, L505.5000 #### [facility] [address] [place], [address] MCHC (RBC) [Mass/Vol] 34.9 g/dL Normal 32-36 [facility] Comment on above: Performed By: #### L 501.5200, L505.5000 #### [facility] [address] [place], [address] MCV (RBC) [Entitic vol] 93.6 fL Normal 80-94 [facility] Comment on above: Performed By: #### L 501.5200, L505.5000 #### [facility] [address] [place], [address] Monocytes/100 WBC (Bld) 8.9 % Normal 0-10 [facility] Comment on above: Performed By: #### L 501.5200, L505.5000 #### [facility] [address] [place], [address] Neutrophils/100 WBC (Bld) 73.1 % High 47-70 [facility] Comment on above: Performed By: #### L 501.5200, L505.5000 #### [facility] [address] [place], [address] Nucleated RBC (Bld) [#/Vol] 0 10*3/uL Normal 0-5 [facility] Comment on above: Performed By: #### L 501.5200, L505.5000 #### [facility] [address] [place], [address] Platelet mean volume (Bld) [Entitic vol] 10.8 fL Normal 6.2-12.0 [facility] Comment on above: Performed By: #### L 501.5200, L505.5000 #### [facility] [address] [place], [address] Platelets (Bld) [#/Vol] 209 10*3/uL Normal 150-450 [facility] [facility] Comment on above: Performed By: #### L 501.5200, L505.5000 #### [facility] [address] [place], [address] RBC (Bld) [#/Vol] 5.33 10*6/uL Normal 4.6-6.2 [facility] Comment on above: Performed By: #### L 501.5200, L505.5000 #### [facility] [address] [place], [address] RDW SD 44.0 fl High 35.1-43.9 [facility] Comment on above: Performed By: #### L 501.5200, L505.5000 #### [facility] [address] [place], [address] WBC (Bld) [#/Vol] 10.2 10*3/uL Normal 4.4-11.0 [facility] Comment on above: Performed By: #### L 501.5200, L505.5000 #### [facility] [address] [place], [address] Chest PA and Lateralon 04-06 Chest PA and Lateral [facility] [address] [place] [address] Chest PA and Lateral MR#: [id number] Acct: [id number] Name: LASHA SMITH Rep #: [id number] : 1960 M 64 From: Jm contreras MD PCP: KAY EspinozaC Status: [facility] ER Study: Chest PA and Lateral Date of Exam: 04/06/25 Exam# [id number] Ordering Dr: Khadijah Seymour MD PROCEDURE: CHEST PA AND LATERAL 04/06/2025 REASON FOR EXAM: CHEST PAIN TECHNIQUE: Procedure Code: RADCXR Modality: DX Procedure: CHEST PA AND LATERAL COMPARISON: None FINDINGS: Hardware: None Heart: Heart size is upper limits of normal. Mediastinum: The mediastinal contour is unremarkable. Lungs: Hyperinflation. Lungs are clear. There is prominence of the central pulmonary arteries suggestive of possible pulmonary hypertension. Bones: Degenerative changes are identified within the thoracic spine. RAD/Chest PA and Lateral IMPRESSION: Hyperinflation. Prominence of the central pulmonary arteries suggestive of possible pulmonary hypertension. Reading Location: [id number] CC: EXCEL DEVELOPER-C Lyric Weaver; Dr. Khadijah Seymour MD Press Cleaner: Signed Normal [facility] D-Dimer Quantitative (DVT/PE )on 04-06-2025 D-DIMER QUANT 0.27 FEU/ug/m Normal 0.27-0.49 [facility] Comment on above: Result Comment: NORM AL D-Dimer level (<0.50) indicates no DVT or PE. Performed By: #### L 501.5200, L505.5000 #### [facility] [address] [place], [address] Emergency Department Summary on 04-06-2025 Emergency Department Summary [facility] Medical Records Department [address] [place] [address] Emergency Department Summary 04/06/25 MR#: [id number] Acct: [id number] Name: LASHA SMITH Rep #: [id number] : 1960 64 From: Khadijah Seymour MD PCP: KAY EspinozaC Status:DEP ER Location: ED HPI History of Present Illness Chief Complaint: Weakness Narrative Narrative: Patient is a 64-year-old male presenting to the emergency department for chest pain. Patient has a past medical history of hypertension, hyperlipidemia, GERD, diabetes, anxiety and depression. Patient is medication noncompliant. Was just here about 8 hours ago for discontinuation of his amitriptyline and presented with difficulty sleeping, jitteriness and sweating. Patient states that he was at his primary care doctor this morning and developed chest pain. Patient states that it is midsternal and feels like someone is sitting on my chest". He endorses a cough which is chronic for him. He does smoke cigarettes and marijuana. He denies any fever, chills, headache, vision changes, shortness of breath, abdominal pain, nausea, vomiting, diarrhea, dysuria or hematuria. Denies any focal numbness or weakness. He was prescribed refills of his medications this morning and states he has not picked them up yet. 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 YE (obstructive sleep apnea) GERD (gastroesophageal reflux disease) TIA (transient ischemic attack) Tobacco use disorder HTN (hypertension) Hyperlipidemia Home Medications ???Medication ???Instructions ???Recorded ???Last Taken ???Type metformin 500 mg tablet 500 mg PO DAILY 10/21/15 11/14/15 04:30 History 500 MG amitriptyline 50 mg tablet 50 mg PO QHS 09/09/17 Unknown Hist ory escitalopram oxalate 20 mg tablet 20 mg PO QHS 05/12/18 Unknown His tory amitriptyline 50 mg tablet 50 mg PO QHS #20 tabs 04/06/25 Unk nown Rx losartan 100 mg tablet 100 mg PO DAILY #20 tabs 04/06/25 Unknown Rx Allergy/AdvReac Type Severity Reaction Status Date / Time Sulfa (Sulfonamide Allergy Severe Hives, Verified 04/06/25 02:10 Antibiotics) Sweating, SOB Family History Father CAD (coronary artery disease) Myocardial infarction Hypertension Heart disease Mother Heart disease Atrial arrhythmia Surgical History S/P laparoscopic appendectomy H/O cystoscopy S/P herniorrhaphy history of benign tumor of parotid gland History of brain surgery History of arthroscopy of right knee History of left knee surgery History of lumbar surgery Social History household members: none Smoking Status: Current every day smoker tobacco type: cigarettes alcohol intake: never substance use type: does not use ROS ROS ED ROS Narrative See HPI EXAM Physical Exam Narrative Exam Narrative: Vital signs: Reviewed General: Alert and oriented x 3. No acute distress HEENT: Head is normocephalic and atraumatic, sinuses nontender, pupils equal round and reactive. Nares are patent. Oropharynx and throat exams normal. Neck: Supple without lymphadenopathy nontender Cardiovascular: Regular rate and rhythm, no murmurs. No rubs or gallops. Normal S1 and S2. DP and PT and radial pulses are symmetric throughout. Respiratory: Clear to auscultation bilaterally. No wheezes, rales, rhonchi Abdominal: Soft and nontender. Normal bowel sounds. No guarding or rebound. Nonsurgical abdomen Extremities: No lower extremity edema. No tenderness. No bruising. Normal range of motion. Normal sensation. Skin: No rash or redness. Neurological: Cranial nerves II through XII are grossly intact. Normal strength and sensation. Normal cerebellar function The rest of the physical exam is unremarkable Const Vital Signs: 04/06/25 11:25 04/06/25 11:31 04/06/25 13:25 Temperature 98.3 F Temperature Source Temporal Pulse Rate 107 H 80 Respiratory Rate 18 18 Respiratory Effort Normal Non-Labored Blood Pressure 161/85 H 154/82 H Blood Pressure Mean 110 106 Pulse Ox 95 97 Oxygen Delivery Method Room Air 04/06/25 15:00 04/06/25 15:43 Temperature 98.4 F Temperature Source Pulse Rate 96 70 Respiratory Rate 14 14 Respiratory Effort Blood Pressure 162/66 H 165/102 H Blood Pressure Mean 98 123 Pulse Ox 95 100 Oxygen Delivery Method Room Air MDM MDM MDM Narrative Medical decision making narrative: Patient is a 64-year-old male presenting to emergency department for chest pain. Pat (more content not included)... Normal [facility] Emergency Department Summary [facility] Medical Records Department [address] [place] [address] Emergency Department Summary 04/06/25 MR#: [id number] Acct: [id number] Name: LASHA SMITH Rep #: [id number] : 1960 64 From: Ciera Crawford DO PCP: Lyric Weaver NP-C Status:REG ER Location: ED HPI History of Present Illness Chief Complaint: General Illness Informant: patient Narrative Narrative: Patient is 64-year-old male with history of hypertension, hyperlipidemia, arthrosclerosis, GERD, diabetes mellitus and anxiety/depression on escitalopram and amitriptyline along permed. He is presenting today for difficulty sleeping, jitteriness and sweating that started tonight. He states that he ran out of his amitriptyline a few days ago and thinks he is having withdrawal from it. He states has never had symptoms like this before. Notes he has been on the amitriptyline for years. He also notes that he ran out of his blood pressure medicine, losartan. States that he still has his S-Citalopram. He states is prescribed by his [facility] ([facility] Denies any HI or SI. Denies any chest pain or difficulty breathing. Denies any amphetamine use but does report THC use. Denies any significant alcohol use. Does smoke cigarettes. No other complaints or concerns reported at this time. 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 YE (obstructive sleep apnea) GERD (gastroesophageal reflux disease) TIA (transient ischemic attack) Tobacco use disorder HTN (hypertension) Hyperlipidemia Home Medications ???Medication ???Instructions ???Recorded ???Last Taken ???Type metformin 500 mg tablet 500 mg PO DAILY 10/21/15 11/14/15 04:30 History 500 MG amitriptyline 50 mg tablet 50 mg PO QHS 09/09/17 Unknown Hist ory escitalopram oxalate 20 mg tablet 20 mg PO QHS 10/17/17 Unknown His tory amitriptyline 50 mg tablet 50 mg PO QHS #20 tabs 04/06/25 Unk nown Rx losartan 100 mg tablet 100 mg PO DAILY #20 tabs 04/06/25 Unknown Rx Allergy/AdvReac Type Severity Reaction Status Date / Time Sulfa (Sulfonamide Allergy Severe Hives, Verified 04/06/25 02:10 Antibiotics) Sweating, SOB Family History Father CAD (coronary artery disease) Myocardial infarction Hypertension Heart disease Mother Heart disease Atrial arrhythmia Surgical History S/P laparoscopic appendectomy H/O cystoscopy S/P herniorrhaphy history of benign tumor of parotid gland History of brain surgery History of arthroscopy of right knee History of left knee surgery History of lumbar surgery Social History household members: none Smoking Status: Current every day smoker tobacco type: cigarettes alcohol intake: never substance use type: does not use ROS ROS ED Constitutional Constitutional ED: Reports sweats; Denies chills or fever(s) Cardiovascular Cardiovascular: Denies chest pain or palpitations Respiratory/Chest Respiratory/Chest: Denies cough or dyspnea Gastrointestinal Gastrointestinal: Denies abdominal pain or vomiting Musculoskeletal Musculoskeletal: Reports other Details: Cramping, jittery feeling Integumentary Denies rash Neurologic Neurologic: Denies paresthesias or weakness Psychiatric Psychiatric: Reports anxiety; Denies depression EXAM Physical Exam Const Vital Signs: 04/06/25 02:12 04/06/25 02:12 04/06/25 04:05 Temperature 97.6 F L Temperature Source Oral Pulse Rate 91 83 Respiratory Rate 18 16 Respiratory Effort Normal Non-Labored Respiratory Pattern Normal Blood Pressure 188/97 H 179/97 H Blood Pressure Mean 127 124 Pulse Ox 99 99 Oxygen Delivery Method Room Air Room Air 04/06/25 04:05 Temperature 98.9 F Temperature Source Pulse Rate 83 Respiratory Rate 16 Respiratory Effort Respiratory Pattern Blood Pressure 179/97 H Blood Pressure Mean 124 Pulse Ox 99 Oxygen Delivery Method Positive well nourished and well developed Constitutional Narrative: Patient is constantly moving around the bed. Appears uncomfortable secondary to this. General Appearance ED: well developed HEENT Reports moist mucous membranes Eyes PERRL Neck supple Chest Wall inspection of chest normal Resp normal respiratory effort and clear to auscultation bilaterally Cardio regular rate and regular rhythm GI normal to inspection, nondistended, normoactive bowel sounds and non-tender Extremity normal to inspecti (more content not included)... Normal [facility] L501.4021on 04-06-2025 Trop T High Sen 24 ng/L High <=22 [facility] Comment on above: Performed By: #### L 501.5200, L505.5000 #### [facility] [address] [place], [address] Troponin T HS 2 HRon 04-06- 025 Trop T High Sen 22 ng/L Normal <=22 [facility] Comment on above: Performed By: #### L 501.5200, L505.5000 #### [facility] [address] [place], [address] Troponin T HS 4 HRon 04-06- 025 Trop T High Sen Normal <=22 [facility] Comment on above: Result Comment: [facility] DISCHARGED Performed By: #### L 501.080 #### [facility] [address] [place], [address] Absolute lymphocyte countOrd ered By: Dr. Mark on 08-27-2022 Lymphocytes Auto (Unsp spec) [#/Vol] 1.54 10*3/uL 0.83-4.51 [facility] Basophil percentageOrdered B y: Dr. Mark on 08-27-2022 Basophil percentage 0-5 SEEN /hpf 0-5 [facility] Basophils/100 WBC (Bld) 0.2 % 0-1 [facility] Chloride [Moles/Vol] 99 mmol/L 98-107 [facility] Eosinophils/100 WBC (Bld) 0.0 % 0-5 [facility] Glucose [Mass/Vol] 230 mg/dL 74-106 [facility] Comment on above: Glucose result great er than or equal to 200 mg/dLsuggests DIABETES MELLITUS per A.D.A. criteria. Neutrophils (Bld) [#/Vol] 20.4 10*3/uL 2.0-7.7 [facility] Neutrophils/100 WBC (Bld) 81.2 % 47-70 [facility] Potassium [Moles/Vol] 4.0 mmol/L 3.5-5.1 [facility] Sodium [Moles/Vol] 131 mmol/L 136-145 [facility] WBC (Bld) [#/Vol] 25.2 10*3/uL 4.4-11.0 [facility] Bilirubin Test strip Ql (U)O rdered By: Dr. Mark on 08-27-2022 Bilirubin Ql (U) Negative Negative [facility] Blood erythrocytes count (nu mber/volume)Ordered By: Dr. Mark on 08-27-2022 RBC (Bld) [#/Vol] 5.41 10*6/uL 4.6-6.2 [facility] Blood hemoglobin measurement (mass/volume)Ordered By: Dr. Mark on 08-27-2022 Hemoglobin (Bld) [Mass/Vol] 16.9 g/dL 13.0-16.5 [facility] Blood lymphocytes/100 leukoc ytesOrdered By: Dr. Mark on 08-27-2022 Lymphocytes/100 WBC (Bld) 6.1 % 19-41 [facility] Blood monocytes/100 leukocyt esOrdered By: Dr. Mark on 08-27-2022 Monocytes/100 WBC (Bld) 11.9 % 0-10 [facility] Blood platelet mean volumeOr dered By: Dr. Mark on 08-27-2022 Platelet mean volume (Bld) [Entitic vol] 10.7 fL 6.2-12.0 [facility] Determination of erythrocyte mean corpuscular volume (MCV)Ordered By: Dr. Mark on 08-27-2022 MCV (RBC) [Entitic vol] 90.0 fL 80-94 [facility] Hematocrit Auto (Bld) [Volum e fraction]Ordered By: Dr. Mark on 08-27-2022 Hematocrit (Bld) [Volume fraction] 48.7 % 40-54 [facility] Ketones Test strip Ql (U)Ord ered By: Dr. Mark on 08-27-2022 Ketones Ql (U) 150 mg/dl Negative [facility] Comment on above: CRITICAL VALUE *HCRI TICAL VALUE VERIFIED. CALLED TO Ran SPRINGER RN ER08/27/22 0512 Denis Beasley.RESULTS READ BACK BY SAME. Laboratory - Chemistry and C hemistry - challengeOrdered By: Dr. Mark on 08-27-2022 CO2 [Moles/Vol] 21.0 mmol/L 21.0-32.0 [facility] Urea nitrogen/Creatinine [Mass ratio] 17.0 mg/mg 10-20 [facility] - Hematology and Cell countsOrdered By: Dr. Mark on 08-27-2022 Erythrocyte distribution width (RBC) [Entitic vol] 45.9 fL 35.1-43.9 [facility] Erythrocyte distribution width (RBC) [Ratio] 13.8 % 11.6-14.6 [facility] Immature granulocytes/100 WBC (Bld) 0.600 % 0.0-0.9 [facility] Comment on above: IG% - Immature Granu locytes (promyelocytes, myelocytes and metamyelocytes) > 1% indicates that a LEFT SHIFT is Present. MCH (RBC) [Entitic mass] 31.2 pg 27.0-32.0 [facility] Nucleated RBC/100 WBC (Bld) [Ratio] 0 % 0-5 [facility] MCHC Auto (RBC) [Mass/Vol]Or dered By: Dr. Mark on 08-27-2022 MCHC (RBC) [Mass/Vol] 34.7 g/dL 32-36 [facility] Mucus LM Ql (Urine sed)Order ed By: Dr. Mark on 08-27-2022 Mucus Ql (Urine sed) 2+ /hpf [facility] Nitrite Test strip Ql (U)Ord ered By: Dr. Mark on 08-27-2022 Nitrite Ql (U) Negative Negative [facility] No Panel InformationOrdered By: Dr. Mark on 08-27-2022 Estimated Creatinine Clearance Calc 83.13 ml/min [facility] Estimated GFR (MDRD) Amer 112 mL/min >60 [facility] Comment on above: GFR Calc Estimated GFR (MDRD) Non-Af Amer 92 mL/min >60 [facility] Comment on above: Non- GFR Calc Platelets bldOrdered By: Dr. Mark on 08-27-2022 Platelets (Bld) [#/Vol] 220 10*3/uL 150-450 [facility] Protein Test strip Ql (U)Ord ered By: Dr. Mark on 08-27-2022 Protein Ql (U) 30 mg/dl Negative [facility] Review by pathologistOrdered By: Dr. Mark on 08-27-2022 Pathologist review Narinder (Unsp spec) [Interp] May foll [facility] Serum or plasma calcium subha urement (mass/volume)Ordered By: Dr. Mark on 08-27-2022 Calcium [Mass/Vol] 9.3 mg/dL 8.5-10.1 [facility] Serum or plasma creatinine m easurement (mass/volume)Ordered By: Dr. Mark on 08-27-2022 Creatinine [Mass/Vol] 0.88 mg/dL 0.70-1.30 [facility] Comment on above: The validity of the calculated GFR & GFRAA in patients over 70 years has not been determined. Clinical correlation is essential. Serum or plasma urea nitroge n measurement (mass/volume)Ordered By: Dr. Mark on 08-27-2022 Urea nitrogen [Mass/Vol] 15 mg/dL 7-18 [facility] Squamous epithelial cells de tection in urine sediment by light microscopyOrdered By: Dr. Mark on 08-27-2022 Epithelial cells.squamous LM Ql (Urine sed) 0 SEEN /hpf 0-5 [facility] Thin prep Papanicolaou smear with manual screeningOrdered By: Dr. Mark on 08-27-2022 Thin prep Papanicolaou smear with manual screening 11 5-15 [facility] Urine blood detectionOrdered By: Dr. Mark on 08-27-2022 RBC Ql (U) 10 /ul Negative [facility] RBC Ql (U) 0-5 SEEN /hpf 0-5 [facility] Urine clarityOrdered By: Dr. Mark on 08-27-2022 Clarity (U) Clear Clear [facility] Urine color determinationOrd ered By: Dr. Mark on 08-27-2022 Color (U) Yellow Yellow [facility] Urine glucose detectionOrder ed By: Dr. Mark on 08-27-2022 Glucose Ql (U) 1000 mg/dl Normal [facility] Urine leukocyte esterase det ection by dipstickOrdered By: Dr. Mark on 08-27-2022 Leukocyte esterase Test strip Ql (U) 25 /ul Negative [facility] Urine pHOrdered By: Dr. Siobhan peña on 08-27-2022 pH (U) 6.0 [pH] 5.0 - 8.0 [facility] Urine sediment bacteria coun t by microscopy (number/high power field)Ordered By: Dr. Mark on 08-27-2022 Bacteria LM.HPF (Urine sed) [#/Area] 1 /[HPF] None Seen [facility] Urine specific gravity measu rementOrdered By: Dr. Mark on 08-27-2022 Specific gravity (U) [Rel density] 1.020 1.002-1.03 0 [facility] Urobilinogen Auto test strip Ql (U)Ordered By: Dr. Mark on 08-27-2022 Urobilinogen Ql (U) 1 mg/dl Normal [facility] Blood Glucose , Office ([phone])Ordered By: Sabi Luke on 05-16-2022 Glucose Glucometer (BldC) [Moles/Vol] 214 1 Normal [facility] Work Phone: HgA1C , Office ([phone])Ordere d By: Sabi Luke on 05-16-2022 HbA1c (Bld) [Mass fraction] 9.6 % Abnormal 4.6 - 7.1 [facility] Work Phone: CNOVon 04-09-2022 CNOV Office Visit (AGHWW1 ) ----- LASHA SMITH ([id number]) 1960 M Date Time Provider Department 04/09/22 2:45 PM BAO PERALTA [id number] During your visit today, we recorded the following information about you: Temperature Weight Height 98.2 degrees 102.1 kg 1.74 m Bao Peralta MD 04/09/2022 3:02 PM Signed 04/09/2022 RE: Lasha Smith DATE OF : 1960 Vitals: Temp 98.2 Ht 5' 8.5" (1.74m) Wt 225 lb (102.1kg) BMI 33.71 kg/(m2). FOLLOW UP VISIT: Fracture right tibial shaft HPI: He is no longer having significant discomfort in his right tibia. Has been able to ambulate without pain. Is not noting any instability. 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 accurately reflect actual GFR. Performed By: #### 2 157-6, 26090-3 ####[facility]IA [id number] [place] [id number] [place] Glucose [Mass/Vol] 206 mg/dL High 74-99 [facility] Comment on above: Order Comment: Chaparrita jose Type: BLOOD SPECIMENOrdering Facility: [facility] Address: [address] [place] [address] Result Comment: The [place] [employer] (ADA) provides guidance for cutoff values for fasting glucose and random glucose. The ADA defines fasting as no caloric intake for at least 8 hours. Fasting plasma glucose results between 100 to 125 mg/dL indicate increased risk for diabetes (prediabetes). Fasting plasma glucose results greater than or equal to 126 mg/dL meet the criteria for diagnosis of diabetes. In the absence of unequivocal hyperglycemia, results should be confirmed by repeat testing. In a patient with classic symptoms of hyperglycemia or hyperglycemic crisis, random plasma glucose results greater than or equal to 200 mg/dL meet the criteria for diagnosis of diabetes. Reference: Standards of Medical Care in Diabetes 2016, [place] [employer]. Diabetes Care. 2016.39(Suppl 1). Performed By: #### 2 157-6, 89126-1 ####[facility] LABORATORYCLIA [id number] [address] STATES OF [facility] Potassium [Moles/Vol] 4.2 mmol/L Normal 3.7-5.1 [facility] Comment on above: Order Comment: Chaparrita garcia Type: BLOOD SPECIMENOrdering Facility: [facility] Address: [address] [place] [address] Performed By: #### 2 157-6, 83347-2 ####[facility] LABORATORYCLIA [id number] [address] STATES [facility] Sodium [Moles/Vol] 132 mmol/L Low 136-144 [facility] Comment on above: Order Comment: Chaparrita garcia Type: BLOOD SPECIMENOrdering Facility: [facility] Address: [address] [place] [address] Performed By: #### 2 157-6, 48729-6 ####[facility] LABORATORYCLIA [id number] [address] Urea nitrogen [Mass/Vol] 14 mg/dL Normal 9-24 [facility] Comment on above: Order Comment: Chaparrita garcia Type: BLOOD SPECIMENOrdering Facility: [facility] Address: [address] [place] [address] Performed By: #### 2 157-6, 68226-6 ####[facility] LABORATORYCLIA [id number] [address] [place] CBC W Auto Differential pane l (Bld)on 12-07-2021 Basophils (Bld) [#/Vol] 0.04 10*3/uL Normal <0.11 [facility] Comment on above: Order Comment: Chaparrita garcia Type: BLOOD SPECIMENOrdering Facility: [facility] Address: [address] [place] [address] Performed By: #### 5 7021-8 ####[facility]ATORYCLIA [id number] [address] Basophils/100 WBC (Bld) 0.2 % Normal [facility] Comment on above: Order Comment: Speci men Type: BLOOD SPECIMENOrdering Facility: [facility] Address: [address] [place] [address] Performed By: #### 5 7021-8 ####[facility]ORATORYCLIA [id number] [address] OF [place] Differential cell count method Nom (Bld) Auto Normal [facility] Comment on above: Order Comment: Speci men Type: BLOOD SPECIMENOrdering Facility: [facility] Address: [address] [place] [address] Performed By: #### 5 7021-8 ####[facility]ORATORYCLIA [id number] [address] [place] Eosinophils (Bld) [#/Vol] 10*3/uL Normal <0.46 [facility] Comment on above: Order Comment: Speci men Type: BLOOD SPECIMENOrdering Facility: [facility] Address: [address] [place] [address] Performed By: #### 5 7021-8 ####[facility] LABORATORYCLIA [id number] [address] Eosinophils/100 WBC (Bld) 0.0 % Normal [facility] Comment on above: Order Comment: Speci men Type: BLOOD SPECIMENOrdering Facility: [facility] Address: [address] [place] [address] Performed By: #### 5 7021-8 ####[facility]ORATORYCLIA [id number] [address] [place] Erythrocyte distribution width (RBC) [Ratio] 13.2 % Normal 11.5-15.0 [facility] Comment on above: Order Comment: Speci men Type: BLOOD SPECIMENOrdering Facility: [facility] Address: [address] [place] [address] Performed By: #### 5 7021-8 ####[facility] LABORATORYCLIA [id number] [address] Hematocrit (Bld) [Volume fraction] 42.6 % Normal 39.0-51.0 [facility] Comment on above: Order Comment: Speci men Type: BLOOD SPECIMENOrdering Facility: [facility] Address: [address] [place] [address] Performed By: #### 5 7021-8 ####[facility] LABORATORYCLIA [id number] [address] Hemoglobin (Bld) [Mass/Vol] 14.6 g/dL Normal 13.0-17.0 [facility] Comment on above: Order Comment: Speci men Type: BLOOD SPECIMENOrdering Facility: [facility] Address: [address] [place] [address] Performed By: #### 5 7021-8 ####[facility] LABORATORYCLIA [id number] [address] IMMATURE GRAN % 0.5 % Normal [facility] Comment on above: Order Comment: Speci men Type: BLOOD SPECIMENOrdering Facility: [facility] Address: [address] [place] [address] Performed By: #### 5 7021-8 ####[facility] LABORATORYCLIA [id number] [address] IMMATURE GRAN ABS 0.08 k/uL Normal <0.10 [facility] Comment on above: Order Comment: Speci men Type: BLOOD SPECIMENOrdering Facility: [facility] Address: [address] [place] [address] Performed By: #### 5 7021-8 ####[facility] LABORATORYCLIA [id number] [address] OF [facility] Lymphocytes (Bld) [#/Vol] 1.29 10*3/uL Normal 1.00-4.00 [facility] Comment on above: Order Comment: Speci men Type: BLOOD SPECIMENOrdering Facility: [facility] Address: [address] [place] [address] Performed By: #### 5 7021-8 ####[facility] LABORATORYCLIA [id number] [address] Lymphocytes/100 WBC (Bld) 8.0 % Normal [facility] Comment on above: Order Comment: Speci men Type: BLOOD SPECIMENOrdering Facility: [facility] Address: [address] [place] [address] Performed By: #### 5 7021-8 ####[facility] LABORATORYCLIA [id number] [address] [place] MCH (RBC) [Entitic mass] 32.0 pg Normal 26.0-34.0 [facility] Comment on above: Order Comment: Speci men Type: BLOOD SPECIMENOrdering Facility: [facility] Address: [address] [place] [address] Performed By: #### 5 7021-8 ####[facility] LABORATORYCLIA [id number] [address] OF [facility] MCHC (RBC) [Mass/Vol] 34.3 g/dL Normal 30.5-36.0 [facility] Comment on above: Order Comment: Speci men Type: BLOOD SPECIMENOrdering Facility: [facility] Address: [address] [place] [address] Performed By: #### 5 7021-8 ####[facility] LABORATORYCLIA [id number] [address] [place] MCV (RBC) [Entitic vol] 93.4 fL Normal 80.0-100.0 [facility] Comment on above: Order Comment: Speci men Type: BLOOD SPECIMENOrdering Facility: [facility] Address: [address] [place] [address] Performed By: #### 5 7021-8 ####[facility]ORATORYCLIA [id number] [place] [address] [place] Monocytes (Bld) [#/Vol] 1.50 10*3/uL High <0.87 [facility] Comment on above: Order Comment: Speci men Type: BLOOD SPECIMENOrdering Facility: [facility] Address: [address] [place] [address] Performed By: #### 5 7021-8 ####[facility]ORATORYCLIA [id number] [address] [place] Monocytes/100 WBC (Bld) 9.3 % Normal [facility] Comment on above: Order Comment: Speci men Type: BLOOD SPECIMENOrdering Facility: [facility] Address: [address] [place] [address] Performed By: #### 5 7021-8 ####[facility] LABORATORYCLIA [id number] [address] [place] Neutrophils (Bld) [#/Vol] 13.24 10*3/uL High 1.45-7.50 [facility] Comment on above: Order Comment: Speci men Type: BLOOD SPECIMENOrdering Facility: [facility] Address: [address] [place] [address] Performed By: #### 5 7021-8 ####[facility]ORATORYCLIA [id number] [address] [place] Neutrophils/100 WBC (Bld) 82.0 % Normal [facility] Comment on above: Order Comment: Speci men Type: BLOOD SPECIMENOrdering Facility: [facility] Address: [address] [place] [address] Performed By: #### 5 7021-8 ####[facility]ORATORYCLIA [id number] [place] [address] [place] Nucleated RBC (Bld) [#/Vol] 10*3/uL Normal <0.01 [facility] Comment on above: Order Comment: Speci men Type: BLOOD SPECIMENOrdering Facility: [facility] Address: [address] [place] [address] Performed By: #### 5 7021-8 ####[facility] LABORATORYCLIA [id number] [address] Nucleated RBC/100 WBC (Bld) [Ratio] 0.0 /100 WBC Normal [facility] Comment on above: Order Comment: Speci men Type: BLOOD SPECIMENOrdering Facility: [facility] Address: [address] [place] [address] Performed By: #### 5 7021-8 ####[facility] LABORATORYCLIA [id number] [address] [place] Platelet mean volume (Bld) [Entitic vol] 11.4 fL Normal 9.0-12.7 [facility] Comment on above: Order Comment: Speci men Type: BLOOD SPECIMENOrdering Facility: [facility] Address: [address] [place] [address] Performed By: #### 5 7021-8 ####[facility] LABORATORYCLIA [id number] [address] OF [place] Platelets (Bld) [#/Vol] 191 10*3/uL Normal 150-400 [facility] Comment on above: Order Comment: Speci men Type: BLOOD SPECIMENOrdering Facility: [facility] Address: [address] [place] [address] Performed By: #### 5 7021-8 ####[facility] LABORATORYCLIA [id number] [address] OF [place] RBC (Bld) [#/Vol] 4.56 10*6/uL Normal 4.20-6.00 [facility] Comment on above: Order Comment: Speci men Type: BLOOD SPECIMENOrdering Facility: [facility] Address: [address] [place] [address] Performed By: #### 5 7021-8 ####[facility] LABORATORYCLIA [id number] [address] [place] WBC (Bld) [#/Vol] 16.15 10*3/uL High 3.70-11.00 [facility] Comment on above: Order Comment: Speci men Type: BLOOD SPECIMENOrdering Facility: [facility] Address: [address] [place] [address] Performed By: #### 5 7021-8 ####[facility] LABORATORYCLIA [id number] [address] CBC panel Auto (Bld)on 12-07 Erythrocyte distribution width (RBC) [Ratio] 13.0 % Normal 11.5-15.0 [facility] Comment on above: Order Comment: Speci men Type: BLOOD SPECIMENOrdering Facility: [facility] Address: [address] [place] [address] Performed By: #### 5 8410-2 ####[facility] LABORATORYCLIA [id number] [address] Hematocrit (Bld) [Volume fraction] 45.9 % Normal 39.0-51.0 [facility] Comment on above: Order Comment: Speci men Type: BLOOD SPECIMENOrdering Facility: [facility] Address: [address] [place] [address] Performed By: #### 5 8410-2 ####[facility] LABORATORYCLIA [id number] [address] Hemoglobin (Bld) [Mass/Vol] 15.3 g/dL Normal 13.0-17.0 [facility] Comment on above: Order Comment: Speci men Type: BLOOD SPECIMENOrdering Facility: [facility] Address: [address] [place] [address] Performed By: #### 5 8410-2 ####[facility] LABORATORYCLIA [id number] [address] MCH (RBC) [Entitic mass] 31.7 pg Normal 26.0-34.0 [facility] Comment on above: Order Comment: Speci men Type: BLOOD SPECIMENOrdering Facility: [facility] Address: [address] [place] [address] Performed By: #### 5 8410-2 ####[facility] LABORATORYCLIA [id number] [address] MCHC (RBC) [Mass/Vol] 33.3 g/dL Normal 30.5-36.0 [facility] Comment on above: Order Comment: Speci men Type: BLOOD SPECIMENOrdering Facility: [facility] Address: [address] [place] [address] Performed By: #### 5 8410-2 ####[facility] LABORATORYCLIA [id number] [address] OF [facility] MCV (RBC) [Entitic vol] 95.2 fL Normal 80.0-100.0 [facility] Comment on above: Order Comment: Speci men Type: BLOOD SPECIMENOrdering Facility: [facility] Address: [address] [place] [address] Performed By: #### 5 8410-2 ####[facility] LABORATORYCLIA [id number] [address] OF [facility] Nucleated RBC (Bld) [#/Vol] 10*3/uL Normal <0.01 [facility] Comment on above: Order Comment: Speci men Type: BLOOD SPECIMENOrdering Facility: [facility] Address: [address] [place] [address] Performed By: #### 5 8410-2 ####[facility] LABORATORYCLIA [id number] [address] Platelet mean volume (Bld) [Entitic vol] 11.2 fL Normal 9.0-12.7 [facility] Comment on above: Order Comment: Speci men Type: BLOOD SPECIMENOrdering Facility: [facility] Address: [address] [place] [address] Performed By: #### 5 8410-2 ####[facility] LABORATORYCLIA [id number] [address] [place] Platelets (Bld) [#/Vol] 198 10*3/uL Normal 150-400 [facility] Comment on above: Order Comment: Speci men Type: BLOOD SPECIMENOrdering Facility: [facility] Address: [address] [place] [address] Performed By: #### 5 8410-2 ####[facility] LABORATORYCLIA [id number] [place] [address] [place] RBC (Bld) [#/Vol] 4.82 10*6/uL Normal 4.20-6.00 [facility] Comment on above: Order Comment: Speci men Type: BLOOD SPECIMENOrdering Facility: [facility] Address: [address] [place] [address] Performed By: #### 5 8410-2 ####[facility] LABORATORYCLIA [id number] [address] STATES OF [facility] WBC (Bld) [#/Vol] 16.87 10*3/uL High 3.70-11.00 [facility] Comment on above: Order Comment: Speci men Type: BLOOD SPECIMENOrdering Facility: [facility] Address: [address] [place] [address] Performed By: #### 5 8410-2 ####[facility] LABORATORYCLIA [id number] [address] [place] CK SerPl-cCncon 12-07-2021 CK [Catalytic activity/Vol] 1537 U/L High 51-298 [facility] Comment on above: Order Comment: Speci men Type: BLOOD SPECIMENOrdering Facility: [facility] Address: [address] [place] [address] Performed By: #### 2 157-6, 96117-6 ####[facility] LABORATORYCLIA [id number] [address] [place] CT ABD/PEL W IVCONon 022 CT ABD/PEL W IVCON * * *Final Report* * * DATE OF EXAM: Dec 07 2021 10:12AM [facility] 0530 - CT ABD/PEL W IVCON / PROCEDURE REASON: Abdominal trauma, blunt * * * * Physician Interpretation * * * * EXAMINATION: CT ABDOMEN AND PELVIS WITH IV CONTRAST CLINICAL HISTORY: Abdominal trauma TECHNIQUE: CT of the abdomen and pelvis was performed using standard technique, scanning from just above the dome of the diaphragm to the symphysis pubis. MQ: CTAP_3 Contrast: IV: 100 ml of Omnipaque 350 : ml of CT Radiation dose: Integrated Dose-length product (DLP) for this visit = 876 mGy*cm. CT Dose Reduction Employed: Automated exposure control(AEC) and iterative recon COMPARISON: None RESULT: Liver: No focal hepatic lesions. Biliary: Gallbladder is unremarkable. No intrahepatic or extrahepatic ductal dilatation. Spleen: No mass. No splenomegaly. Pancreas: No mass or duct dilation. Adrenals: No mass. Kidneys: Kidneys enhance symmetrically without hydronephrosis or renal stones. GI tract: Stomach is collapsed. Colon is normal in caliber without obstruction. Appendix is unremarkable. Small bowel is normal in caliber without obstruction. Lymph nodes: No abdominal or pelvic lymphadenopathy. Mesentery/Peritoneum: No ascites or mass. Retroperitoneum: No mass. Vasculature: - Abdominal aorta and iliac arteries: Atherosclerotic calcifications without aneurysm. - Celiac and SMA: Patent without stenosis. - Portal venous system (SMV, splenic vein, portal vein and branches): Patent. - Hepatic veins: Patent. Pelvis: Urinary bladder is unremarkable. Prostate is present. No pelvic lymphadenopathy. Bones/Soft Tissues: Small fat-containing right inguinal hernia. No suspicious osseous lesions. Posterior fusion of L4-5 with pedicle screws and rods. Severe degenerative changes at the L4-L5 level. Multilevel degenerative changes throughout the thoracolumbar spine. Lower thorax: Please see separately dictated CT of the chest. Pulverizer Mill Operator (topogram) images: No additional findings. IMPRESSION: No acute process in the abdomen or pelvis. Press Cleaner: PSCB Transcribe Date/Time: Dec 07 2021 11:34A Dictated by : RAKEL ALCANTARA MD This examination was interpreted and the report reviewed and electronically signed by: RAKEL ALCANTARA MD on Dec 07 2021 11:40AM EST [id number] Normal [facility] CT CHEST W IVCONon 2 CT CHEST W IVCON * * *Final Report* * * DATE OF EXAM: Dec 07 2021 10:12AM [facility] 0539 - CT CHEST W IVCON / PROCEDURE REASON: Chest trauma, blunt * * * * Physician Interpretation * * * * EXAMINATION: CHEST CT WITH CONTRAST CLINICAL HISTORY: Chest trauma, blunt Technique: Spiral CT acquisition of the chest from the thoracic inlet to the upper abdomen following IV contrast. MQ: CTCW_6 Contrast: 100 mL Omnipaque [address] Radiation dose: Integrated Dose-length product (DLP) for this visit = 876 mGy*cm CT Dose Reduction Employed: Automated exposure control(AEC) and iterative recon Comparison: None RESULT: Limitations: None. Lines, tubes, and devices: None. Lung parenchyma and airways: No pneumothorax or pleural effusions. Emphysematous changes. Mild subpleural reticulation bilaterally. Mild subpleural groundglass opacities most prominent in the upper lobes. Cluster of tiny groundglass nodules in the right middle lobe (125, 3). 0.7 cm nodule right apex (46, 3). 0.4 cm nodule right upper lobe (image 94, 3). Pleural space: No pleural effusion. No pleural thickening. Lower neck, lymph nodes, and mediastinum: The imaged thyroid gland is normal. No axillary lymphadenopathy. Few borderline mediastinal lymph nodes including a 1.1 cm precarinal lymph node (78, 2). Few borderline hilar lymph nodes bilaterally. Reference 1.5 cm right hilar lymph node (84, 3). Heart, pericardium, and thoracic vessels: The thoracic aorta and main pulmonary artery are normal in caliber. The cardiac chambers are normal in size. Coronary artery atherosclerotic calcifications are noted, although the study is not optimized for coronary assessment. No pericardial effusion or thickening. Bones and soft tissues: No suspicious osseous lesions. Mild degenerative changes throughout the thoracic spine. Upper abdomen: Please see separately dictated CT of the abdomen. Pulverizer Mill Operator (topogram) images: No additional findings. IMPRESSION: 1. Small lung nodules measuring up to 0.7 cm. 2. Cluster of tiny groundglass nodules in the right middle lobe, could be infectious or inflammatory. 3. Mild peripheral reticulation in the lungs bilaterally, could suggest mild underlying fibrosis. 4. Mild subpleural ground glass opacities most prominent in the upper lobes. Could also relate to aforementioned fibrosis although infectious/inflammation is also possible. 5. Mild mediastinal and hilar lymphadenopathy, nonspecific Incidental Finding: Follow-up Acuity: Incidental Findings: Solid: 6-8 mm (multiple nodules) Routing Code: RI_1 Recommendation: CT Chest WO IVCON Time Frame: 3-6 months Comments: If stable on follow-up imaging, a repeat chest CT exam in 12 months (15 - 18 months from the initial exam) is recommended. Press Cleaner: RYLEE Transcribe Date/Time: Dec 07 2021 11:40A Dictated by : RAKEL ALCANTARA MD This examination was interpreted and the report reviewed and electronically signed by: RAKEL ALCANTARA MD on Dec 07 2021 11:49AM EST [id number] ACTIONABLE Invalid Interpretation Code [facility] Comprehensive metabolic 2000 panelon 12-07-2021 Albumin [Mass/Vol] 4.1 g/dL Normal 3.9-4.9 [facility] Comment on above: Order Comment: Chaparrita garcia Type: BLOOD SPECIMENOrdering Facility: [facility] Address: [address] [place] [address] Performed By: #### 2 4323-8, 3040-3 ####[facility] LABORATORYCLIA [id number] [address] STATES OF [place] ALP [Catalytic activity/Vol] 111 U/L Normal 38-113 [facility] Comment on above: Order Comment: Chaparrita garcia Type: BLOOD SPECIMENOrdering Facility: [facility] Address: [address] [place] [address] Performed By: #### 2 4323-8, 3040-3 ####[facility] LABORATORYCLIA [id number] [place] [address] [place] ALT With P-5'-P [Catalytic activity/Vol] 23 U/L Normal 10-54 [facility] Comment on above: Order Comment: Chaparrita garcia Type: BLOOD SPECIMENOrdering Facility: [facility] Address: [address] [place] [address] Performed By: #### 2 4323-8, 3040-3 ####[facility] LABORATORYCLIA [id number] [place] [address] [place] Anion gap [Moles/Vol] 11 mmol/L Normal 9-18 [facility] Comment on above: Order Comment: Speci men Type: BLOOD SPECIMENOrdering Facility: [facility] Address: [address] [place] [address] Performed By: #### 2 4323-8, 0-3 ####[facility] LABORATORYCLIA [id number] [place] [address] [place] AST With P-5'-P [Catalytic activity/Vol] 35 U/L Normal 14-40 [facility] Comment on above: Order Comment: Speci men Type: BLOOD SPECIMENOrdering Facility: [facility] Address: [address] [place] [address] Performed By: #### 2 4323-8, 3039-3 ####[facility] LABORATORYCLIA [id number] [address] STATES OF [place] Bilirubin [Mass/Vol] 0.6 mg/dL Normal 0.2-1.3 [facility] Comment on above: Order Comment: Speci men Type: BLOOD SPECIMENOrdering Facility: [facility] Address: [address] [place] [address] Performed By: #### 2 4323-8, 3039-3 ####[facility] LABORATORYCLIA [id number] [address] STATES OF [facility] Calcium [Mass/Vol] 8.7 mg/dL Normal 8.5-10.2 [facility] Comment on above: Order Comment: Speci men Type: BLOOD SPECIMENOrdering Facility: [facility] Address: [address] [place] [address] Performed By: #### 2 4323-8, 3040-3 ####[facility] LABORATORYCLIA [id number] [place] [address] [place] Chloride [Moles/Vol] 100 mmol/L Normal 97-105 [facility] Comment on above: Order Comment: Speci men Type: BLOOD SPECIMENOrdering Facility: [facility] Address: [address] Performed By: #### 2 4323-8, 3040-3 ####[facility] LABORATORYCLIA [id number] [place] [address] [place] CO2 [Moles/Vol] 22 mmol/L Normal 22-30 [facility] Comment on above: Order Comment: Speci men Type: BLOOD SPECIMENOrdering Facility: [facility] Address: [address] [place] [address] Performed By: #### 2 4323-8, 0-3 ####[facility] LABORATORYCLIA [id number] [place] [address] [place] Creatinine [Mass/Vol] 0.84 mg/dL Normal 0.73-1.22 [facility] Comment on above: Order Comment: Speci men Type: BLOOD SPECIMENOrdering Facility: [facility] Address: [address] [place] [address] Performed By: #### 2 4323-8, 0-3 ####[facility] LABORATORYCLIA [id number] [address] STATES OF [place] ESTIMATED GLOMERULAR FILTRATION RATE 98 mL/min/1.73m??? Normal >=60 [facility] Comment on above: Order Comment: Speci men Type: BLOOD SPECIMENOrdering Facility: [facility] Address: [address] [place] [address] Result Comment: Sophie mated Glomerular Filtration Rate (eGFR) is calculated using the 2020 CKD-EPI creatinine equation. This equation utilizes serum creatinine, sex, and age as parameters. The creatinine assay has traceable calibration to isotope dilution-mass spectrometry. Refer to KDIGO guidelines for clinical interpretation. In patients with unstable renal function, e.g. those with acute kidney injury, the eGFR may not accurately reflect actual GFR. Performed By: #### 2 4323-8, 0-3 ####[facility] LABORATORYCLIA [id number] [place] [address] [place] Glucose [Mass/Vol] 232 mg/dL High 74-99 [facility] Comment on above: Order Comment: Speci men Type: BLOOD SPECIMENOrdering Facility: [facility] Address: [address] [place], [place] [address] Result Comment: The [place] [employer] (ADA) provides guidance for cutoff values for fasting glucose and random glucose. The ADA defines fasting as no caloric intake for at least 8 hours. Fasting plasma glucose results between 100 to 125 mg/dL indicate increased risk for diabetes (prediabetes). Fasting plasma glucose results greater than or equal to 126 mg/dL meet the criteria for diagnosis of diabetes. In the absence of unequivocal hyperglycemia, results should be confirmed by repeat testing. In a patient with classic symptoms of hyperglycemia or hyperglycemic crisis, random plasma glucose results greater than or equal to 200 mg/dL meet the criteria for diagnosis of diabetes. Reference: Standards of Medical Care in Diabetes 2016, [place] [employer]. Diabetes Care. 2016.39(Suppl 1). Performed By: #### 2 4323-8, 0-3 ####[facility] LABORATORYCLIA [id number] [place] [address] [place] Potassium [Moles/Vol] 4.4 mmol/L Normal 3.7-5.1 [facility] Comment on above: Order Comment: Chaparrita garcia Type: BLOOD SPECIMENOrdering Facility: [facility] Address: [address] Performed By: #### 2 4323-8, 3039-3 ####[facility] LABORATORYCLIA [id number] [place] [address] [place] Protein [Mass/Vol] 6.6 g/dL Normal 6.3-8.0 [facility] Comment on above: Order Comment: Damioni men Type: BLOOD SPECIMENOrdering Facility: [facility] Address: [address] Performed By: #### 2 4323-8, 3039-3 ####[facility] LABORATORYCLIA [id number] [place] [address] [place] Sodium [Moles/Vol] 133 mmol/L Low 136-144 [facility] Comment on above: Order Comment: Speci men Type: BLOOD SPECIMENOrdering Facility: [facility] Address: [address] [place] [address] Performed By: #### 2 4323-8, 3040-3 ####[facility] LABORATORYCLIA [id number] [address] Urea nitrogen [Mass/Vol] 14 mg/dL Normal 9-24 [facility] Comment on above: Order Comment: Chaparrita garcia Type: BLOOD SPECIMENOrdering Facility: [facility] Address: [address] [place] [address] Performed By: #### 2 4323-8, 3040-3 ####[facility] LABORATORYCLIA [id number] [address] ED NOTEon 12-07-2021 ED NOTE HNO ID: [id number] Author: Dylan Bal RN Service: Emergency Medicine Author Type: Registered Nurse Type: ED Notes Filed: 12/07/2021 1:02 AM Note Text: Report to MAYUR Aguirre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 WAS FASTINGP ERFORMED BY: Lab[facility] Ttonjj9620 [facility] [place] [id number] Protein [Mass/Vol] 6.8 g/dL Normal 6.0-8.5 [facility] Internal Medicine; [facility] Work Phone: Comment on above: PATIENT WAS FASTINGP ERFORMED BY: [facility] Vrfdqd8159 [facility] [place] [id number] Sodium [Moles/Vol] 139 mmol/L Normal 134-144 [facility]; [facility] Work Phone: Comment on above: PATIENT WAS FASTINGP ERFORMED BY: [facility] Eusmtj9481 [address] [facility] [id number] Urea nitrogen [Mass/Vol] 13 mg/dL Normal 8-27 [facility]; [facility] Work Phone: Comment on above: PATIENT WAS FASTINGP ERFORMED BY: [facility] Mfmwub8186 [facility] [id number] Urea nitrogen/Creatinine [Mass ratio] 13 mg/mg Normal 10-24 [facility]; [facility] Work Phone: Comment on above: PATIENT WAS FASTINGP ERFORMED BY: [facility] [id number] [facility] [id number] TSH (THYROID STIMULATING HOR ARMANDO) ([id number])Ordered By: Utilization Management Manager on 09-19-2020 TSH Qn 1.620 {uIU/mL} Normal 0.450-4.50 0 [facility]; [facility] Work Phone: Comment on above: PATIENT WAS FASTINGP ERFORMED BY: LabI Read Books [id number] [facility] [id number] Blood Glucose , Office ([phone])Ordered By: Hayden Galicia on 02-06-2020 Glucose Glucometer (BldC) [Moles/Vol] 204 1 Normal [facility] Work Phone: CBC, Platelets & Auto Diff ( [phone])Ordered By: Utilization Management Manager on 02-06-2020 Basophils (Bld) [#/Vol] 0.1 {x10E3/uL} Normal 0.0-0.2 [facility] Work Phone: Comment on above: PATIENT WAS FASTINGP ERFORMED BY: [facility] [id number] [facility] [id number] Basophils (Bld) [#/Vol] 0.1 10*3/uL Normal 0.0-0.2 [facility]; [facility] Work Phone: Basophils/100 WBC (Bld) 1 % Normal [facility] Work Phone: Comment on above: PATIENT WAS FASTINGP ERFORMED BY: MIRIAM [facility] [facility]in [place] [id number] Eosinophils (Bld) [#/Vol] 0.1 {x10E3/uL} Normal 0.0-0.4 [facility] Work Phone: Comment on above: PATIENT WAS FASTINGP ERFORMED BY: MIRIAM [facility] Jvnmzx2212 [address] [facility] Hospitalbl[facility] [place] [id number] Eosinophils (Bld) [#/Vol] 0.1 10*3/uL Normal 0.0-0.4 [facility]; [facility] Work Phone: Eosinophils/100 WBC (Bld) 1 % Normal [facility] Work Phone: Comment on above: PATIENT WAS FASTINGP ERFORMED BY: MIRIAM [facility] Oqjzno3426 [address] [facility] [id number] Erythrocyte distribution width (RBC) [Ratio] 12.8 % Normal 11.6-15.4 [facility] Work Phone: Comment on above: PATIENT WAS FASTINGP ERFORMED BY: [facility] [facility]in [place] [id number] Hematocrit (Bld) [Volume fraction] 47.1 % Normal 37.5-51.0 [facility] Work Phone: Comment on above: PATIENT WAS FASTINGP ERFORMED BY: [facility]6[address] [facility] [id number] Hemoglobin (Bld) [Mass/Vol] 15.7 g/dL Normal 13.0-17.7 [facility] Work Phone: Comment on above: PATIENT WAS FASTINGP ERFORMED BY: [facility]Henry [facility] [facility]in [place] [id number] Immature granulocytes (Bld) [#/Vol] 0.1 {x10E3/uL} Normal 0.0-0.1 [facility] Work Phone: Comment on above: PATIENT WAS FASTINGP ERFORMED BY: LabHenry [facility] Hospital6370 [address]Dublin [place] [id number] Immature granulocytes (Bld) [#/Vol] 0.1 10*3/uL Normal 0.0-0.1 [facility]; [facility] Work Phone: Immature granulocytes/100 WBC (Bld) 1 % Normal [facility] Work Phone: Comment on above: PATIENT WAS FASTINGP ERFORMED BY: MIRIAM [facility] Niphxu5110 [address]Dublin [place] [id number] Lymphocytes (Bld) [#/Vol] 2.2 {x10E3/uL} Normal 0.7-3.1 [facility] Work Phone: Comment on above: PATIENT WAS FASTINGP ERFORMED BY: LabCoLourdes Medical Center of Burlington CountyCefgkm5383 [address] Roadblin [place] [id number] Lymphocytes (Bld) [#/Vol] 2.2 10*3/uL Normal 0.7-3.1 [facility]; [facility] Work Phone: Lymphocytes/100 WBC (Bld) 25 % Normal [facility] Work Phone: Comment on above: PATIENT WAS FASTINGP ERFORMED BY: MIRIAM LabHenry [facility] [facility]in [place] [id number] MCH (RBC) [Entitic mass] 31.8 pg Normal 26.6-33.[address] [facility] Internal Medicine Work Phone: Comment on above: PATIENT WAS FASTINGP ERFORMED BY: LabNortheast Missouri Rural Health NetworkCxjucz1522 [address] [facility] [place] [id number] MCHC (RBC) [Mass/Vol] 33.3 g/dL Normal 31.5-35.7 [facility] Internal Medicine Work Phone: Comment on above: PATIENT WAS FASTINGP ERFORMED BY: LabCo Qdaoxv3404 [address] RoadDublin [place] [id number] MCV (RBC) [Entitic vol] 95 fL Normal 79-[address] [facility] Internal Medicine Work Phone: Comment on above: PATIENT WAS FASTINGP ERFORMED BY: [facility] Mxoeee9207 [address] RoadDublin [place] [id number] Monocytes (Bld) [#/Vol] 0.9 {x10E3/uL} Normal 0.1-0.9 [facility] Work Phone: Comment on above: PATIENT WAS FASTINGP ERFORMED BY: MIRIAM DiamondThe [facility] Sdfyym3526 [facility] [id number] Monocytes (Bld) [#/Vol] 0.9 10*3/uL Normal 0.1-0.9 [facility]; [facility] Work Phone: Monocytes/100 WBC (Bld) 10 % Normal [facility] Work Phone: Comment on above: PATIENT WAS FASTINGP ERFORMED BY: MIRIAM LabHenry [facility] Hospital6370 [facility] [id number] Neutrophils (Bld) [#/Vol] 5.4 {x10E3/uL} Normal 1.4-7.0 [facility] Work Phone: Comment on above: PATIENT WAS FASTINGP ERFORMED BY: [facility]6370 [facility] [id number] Neutrophils (Bld) [#/Vol] 5.4 10*3/uL Normal 1.4-7.0 [facility]; [facility] Work Phone: Neutrophils/100 WBC (Bld) 62 % Normal [facility] Work Phone: Comment on above: PATIENT WAS FASTINGP ERFORMED BY: LabHenry [facility] Hospital6370 [facility] [id number] Platelets (Bld) [#/Vol] 186 {x10E3/uL} Normal 150-450 [facility] Work Phone: Comment on above: PATIENT WAS FASTINGP ERFORMED BY: LabHenry [facility] Hospital6370 [facility] [id number] Platelets (Bld) [#/Vol] 186 10*3/uL Normal 150-450 [facility]; [facility] Work Phone: RBC (Bld) [#/Vol] 4.94 {x10E6/uL} Normal 4.14-5.80 [facility] Internal Medicine Work Phone: Comment on above: PATIENT WAS FASTINGP ERFORMED BY: MIRIAM [facility] Rbweht0166 [facility] [id number] RBC (Bld) [#/Vol] 4.94 10*6/uL Normal 4.14-5.80 [facility]; [facility] Work Phone: WBC (Bld) [#/Vol] 8.6 {x10E3/uL} Normal 3.4-10.8 [facility] Work Phone: Comment on above: PATIENT WAS FASTINGP ERFORMED BY: MIRIAM [facility] Ojcbos2770 [facility] [id number] WBC (Bld) [#/Vol] 8.6 10*3/uL Normal 3.4-10.8 [facility] Internal Medicine; [facility] Work Phone: HgA1C , Office ([phone])Ordere d By: Hayden Galicia on 02-06-2020 HbA1c (Bld) [Mass fraction] 8.4 % Abnormal 4.6 - 7.1 [facility] Work Phone: LIPID PANEL ([phone])Ordered B y: Utilization Management Manager on 02-06-2020 Cholesterol [Mass/Vol] 265 mg/dL Abnormal 100-199 [facility] Work Phone: Comment on above: PATIENT WAS FASTINGP ERFORMED BY: LabI Read Booksrp Ostduz3013 [facility] [id number] Cholesterol in HDL [Mass/Vol] 31 mg/dL Abnormal [facility] Work Phone: Comment on above: PATIENT WAS FASTINGP ERFORMED BY: [facility] Xtuvuh2219 [facility] [id number] Cholesterol in LDL/Cholesterol in HDL [Mass ratio] 5.1 {ratio} Abnormal 0.0-3.6 [facility] Work Phone: Comment on above: LDL/HDL Ratio Men Wo men 1/2 Avg.Risk 1.0 1.5 Avg.Risk 3.6 3.2 2X Avg.Risk 6.2 5.0 3X Avg.Risk 8.0 6.1 PATIENT WAS FASTINGP ERFORMED BY: MIRIAM LabMargarita TreviñoZobygw3009 [address] [place] [id number] Triglyceride [Mass/Vol] 391 mg/dL Abnormal 0-149 [facility] Work Phone: Comment on above: PATIENT WAS FASTINGP ERFORMED BY: MIRIAM Treviñolin6370 [facility]in [place] [id number] LIPID PANEL (80640) 75 mg/dL Abnormal 5-40 Compr ensive Internal Medicine Work Phone: Comment on above: PATIENT WAS FASTINGP ERFORMED BY: MIRIAM LabMargarita TreviñoQvofsb4821 [facility] [place] [id number] LIPID PANEL (45810) 159 mg/dL Abnormal 0-99 [facility] Work Phone: Comment on above: PATIENT WAS FASTINGP ERFORMED BY: MIRIAM Treviñolin6370 [facility] [id number] LIPID PANEL (95657) 5.1 {ratio} Abnormal 0.0-3.6 Comp [facility]; [facility] Work Phone: MICROALBUMINOrdered By: Syst em Sports Announcer on 02-06-2020 Albumin DL <= 20 mg/L (U) [Mass/Vol] 10.4 ug/mL Normal [facility] Work Phone: Comment on above: PATIENT WAS FASTINGP ERFORMED BY: MIRIAM Treviñolin6370 [facility] [id number] Albumin/Creatinine (U) [Mass ratio] 9 {mg/g_creat} Normal 0-29 [facility] Work Phone: Comment on above: Normal: 0 - 29 Moder ately increased: 30 - 300 Severely increased: >300 Please note reference interval change PATIENT WAS FASTINGP ERFORMED BY: MIRIAM LabMargarita TreviñoTetgmq1133 [facility] [id number] Creatinine (U) [Mass/Vol] 119.6 mg/dL Normal [facility] Work Phone: Comment on above: PATIENT WAS FASTINGP ERFORMED BY: CB [facility] Ggvbxx9794 [address]ta RoadDublin [place] [id number] Metabolic Panel, Comprehensi ve (11096)Ordered By: Utilization Management Manager on 02-06-2020 Albumin [Mass/Vol] 4.3 g/dL Normal 3.8-4.8 [facility] Internal Medicine Work Phone: Comment on above: PATIENT WAS FASTINGP ERFORMED BY: MIRIAM [facility] Xzmeqn5097 [address]ta RoadDublin [place] [id number] Albumin/Globulin [Mass ratio] 1.7 {ratio} Normal 1.2-2.2 [facility] Work Phone: Comment on above: PATIENT WAS FASTINGP ERFORMED BY: CB [facility] Phnvuy9103 [address] RoadDublin [place] [id number] ALP [Catalytic activity/Vol] 108 [iU]/L Normal 39-117 [facility] Work Phone: Comment on above: PATIENT WAS FASTINGP ERFORMED BY: MIRIAM [facility] Bsmgdn2187 [address] RoadDublin [place] [id number] ALP [Catalytic activity/Vol] 108 U/L Normal 39-117 [facility]; [facility] Work Phone: ALT [Catalytic activity/Vol] 26 [iU]/L Normal 0-44 [facility] Work Phone: Comment on above: PATIENT WAS FASTINGP ERFORMED BY: CB [facility] Fystdp4709 [address] RoadDublin [place] [id number] ALT [Catalytic activity/Vol] 26 U/L Normal 0-44 [facility]; [facility] Work Phone: AST [Catalytic activity/Vol] 23 [iU]/L Normal 0-40 [facility] Work Phone: Comment on above: PATIENT WAS FASTINGP ERFORMED BY: CB [facility] Spbaur2789 [address] RoadDublin [place] [id number] AST [Catalytic activity/Vol] 23 U/L Normal 0-40 [facility]; [facility] Work Phone: Bilirubin [Mass/Vol] 0.2 mg/dL Normal 0.0-1.2 Comp rehensive Internal Medicine Work Phone: Comment on above: PATIENT WAS FASTINGP ERFORMED BY: CB [facility] Heacrx5793 [address]Dublin [place] [id number] Calcium [Mass/Vol] 9.4 mg/dL Normal 8.6-10.2 [facility] Internal Medicine Work Phone: Comment on above: PATIENT WAS FASTINGP ERFORMED BY: CB [facility] Hkkziu6784 [address] RoadDublin [place] [id number] Chloride [Moles/Vol] 103 mmol/L Normal 96-106 [facility] Work Phone: Comment on above: PATIENT WAS FASTINGP ERFORMED BY: CB [facility] Seqjhf3704 [address] RoadDublin [place] [id number] CO2 [Moles/Vol] 20 mmol/L Normal 20-29 [facility] Internal Medicine Work Phone: Comment on above: PATIENT WAS FASTINGP ERFORMED BY: CB [facility] Yturjk9653 [address]Dublin [place] [id number] Creatinine [Mass/Vol] 0.90 mg/dL Normal 0.76-1.27 [facility] Internal Medicine Work Phone: Comment on above: PATIENT WAS FASTINGP ERFORMED BY: CB [facility] Bsdfsy9144 [address] RoadDublin [place] [id number] GFR/1.73 sq M predicted among blacks CKD-EPI (S/P/Bld) [Vol rate/Area] 106 mL/min/1.73 Normal [facility] Work Phone: Comment on above: PATIENT WAS FASTINGP ERFORMED BY: CB [facility] Xgdisq0133 [address]Dublin [place] [id number] GFR/1.73 sq M predicted among non-blacks CKD-EPI (S/P/Bld) [Vol rate/Area] 92 mL/min/1.73 Normal [facility] Work Phone: Comment on above: PATIENT WAS FASTINGP ERFORMED BY: CB [facility] Oivarw3208 [address]Dublin [place] [id number] Globulin (S) [Mass/Vol] 2.5 g/dL Normal 1.5-4.[address] [facility] Internal Medicine Work Phone: Comment on above: PATIENT WAS FASTINGP ERFORMED BY: MIRIAM [facility] Ookach9049 [address] RoadDublin [place] [id number] Glucose [Mass/Vol] 209 mg/dL Abnormal 65-99 [facility] Internal Medicine Work Phone: Comment on above: PATIENT WAS FASTINGP ERFORMED BY: [facility] Yobcjg8403 [address]Dublin [place] [id number] Potassium [Moles/Vol] 4.4 mmol/L Normal 3.5-5.2 [facility] Internal Medicine Work Phone: Comment on above: PATIENT WAS FASTINGP ERFORMED BY: MIRIAM [facility] Nriuew5312 [address]Dublin [place] [id number] Protein [Mass/Vol] 6.8 g/dL Normal 6.0-8.5 [facility] Internal Medicine Work Phone: Comment on above: PATIENT WAS FASTINGP ERFORMED BY: MIRIAM [facility] Wmpyhb9853 [address]Dublin [place] [id number] Sodium [Moles/Vol] 139 mmol/L Normal 134-144 [facility] Internal Medicine Work Phone: Comment on above: PATIENT WAS FASTINGP ERFORMED BY: MIRIAM [facility] Ivqgyw0895 [address] RoadDuin [place] [id number] Urea nitrogen [Mass/Vol] 12 mg/dL Normal 8-[address] [facility] Internal Medicine Work Phone: Comment on above: PATIENT WAS FASTINGP ERFORMED BY: [facility] Anytaa5987 [address] RoadDublin [place] [id number] Urea nitrogen/Creatinine [Mass ratio] 13 mg/mg Normal 10-[address] [facility] Internal Medicine Work Phone: Comment on above: PATIENT WAS FASTINGP ERFORMED BY: MIRIAM [facility] Qeptbl2301 [address]Dublin [place] [id number] PSA (PROSTATE SPECIFIC ANTIG EN) (V76.44)Ordered By: Utilization Management Manager on 02-06-2020 Prostate specific Ag [Mass/Vol] 0.3 ng/mL Normal 0.0-4.0 [facility] Work Phone: Comment on above: Kenna ECLIA methodol ogy. .According to the [place] [employer], Serum PSA shoulddecrease and remain at undetectable levels after radicalprostatectomy. The AUA defines biochemical recurrence as an initialPSA value 0.2 ng/mL or greater followed by a subsequent confirmatoryPSA value 0.2 ng/mL or greater.Values obtained with different assay methods or kits cannot be usedinterchangeably. Results cannot be interpreted as absolute evidenceof the presence or absence of malignant disease. PATIENT WAS FASTINGP ERFORMED BY: irisnote70 [employer] [place] [id number] TSH ([id number])Ordered By: Jackie m Sports Announcer on 02-06-2020 TSH Qn 1.380 {uIU/mL} Normal 0.450-4.50 0 [facility] Work Phone: Comment on above: PATIENT WAS FASTINGP ERFORMED BY: Briggo6370 [facility] [id number] Blood Glucose , Office ([phone])Ordered By: Hayden Galicia on 11-04-2019 Glucose Glucometer (BldC) [Moles/Vol] 236 1 Normal [facility] Work Phone: HgA1C , Office ([phone])Ordere d By: Hayden Galicia on 11-04-2019 HbA1c (Bld) [Mass fraction] 7.8 % Abnormal 4.6 - 7.1 [facility] Work Phone: FLU A+B DIRECT AG, (RAPID) ( [id number])Ordered By: Pili Ferreira on 08-15-2019 FLUAV+FLUBV Ag Ql (Unsp spec) Positive Normal [facility] Work Phone: FLUAV+FLUBV Ag Ql (Unsp spec) Positive Normal [facility]; [facility] Work Phone: Blood Glucose , Office ([phone])Ordered By: Hayden Galicia on 07-05-2019 Glucose Glucometer (BldC) [Moles/Vol] 262 1 Normal [facility] Work Phone: HgA1C , Office ([phone])Ordere d By: Hayden Galicia on 07-05-2019 HbA1c (Bld) [Mass fraction] 10.4 % Abnormal 4.6 - 7.1 [facility] Work Phone: Blood Glucose , Office ([phone])Ordered By: Hayden Galicia on 07-20-2018 Glucose Glucometer molar conc (BldC) 164 1 Normal [facility] Work Phone: HgA1C , Office ([phone])Ordere d By: Hayden Galicia on 07-20-2018 Hemoglobin A1c/Hemoglobin.total mass fraction (Bld) 9.4 % Abnormal 4.6 - 7.1 Comprehensiv e Internal Medicine Work Phone: Blood Glucose , Office ([phone])Ordered By: Hattie Ellis on 03-23-2018 Glucose Glucometer molar conc (BldC) 124 1 Normal [facility] Work Phone: HgA1C , Office ([phone])Ordere d By: Hattie Ellis on 03-23-2018 Hemoglobin A1c/Hemoglobin.total mass fraction (Bld) 8.5 % Abnormal 4.6 - 7.1 Comprehensiv e Internal Medicine Work Phone: CDIFF (Molecular)Ordered By: Utilization Management Manager on 12-05-2017 C. difficile DNA BEN+probe Ql (Unsp spec) See Note Normal [facility] Work Phone: Comment on above: Cdiff-MolecularNorma l Reference Range = Negative C. Diff DNA Negative- No toxigenic C. Diff DNA DetectedNAAT METHOD Testing was performed using nucleic acid amplification [facility] Ygpljkmqgd6177 [facility]. [place], [place], [phone] ENTERIC PATHOGEN PANEL STOOL Ordered By: Utilization Management Manager on 12-05-2017 ENTERIC PATHOGEN PANEL STOOL See Note Normal [facility] Work Phone: Comment on above: EP PANEL STOOL * This is an amended result. * A prior result that was reported as final has been changed. 12/17/17 0821 by SISI Previously reported as: SALMONELLA SPECIES Normal Reference Range = Not Detected Salmonella species detected. Susceptibility testing not routinely performed but can be completed at the request by the ordering physician. Treatment is often not needed in many cases. This is an amplified DNA test which makes it both specific and sensitive. Copy of report sent to Infection Control Printer [id number] 12/05/17 1546 SISI. RESULTS PAGED TO DR NEVILLE 12/05/17 5586 Yulia Pickett. [facility] FINAL REPORT IDENTIFICATION Salmonella [place] TESTING PERFORMED AT [facility]. ORIGINAL REPORT ON FILE IN LAB CONTAINS ADDITIONAL TEST SITE INFORMATION. CAMPYLOBACTER Not DetectedSalmonella Salmonella sp. DetectedShigella sp. Not DetectedShiga Toxin Not DetectedYersinia Not DetectedVIBRIO Not DetectedNorovirus Not DetectedRotavirus Not Detected [facility] Gpiqxhnbba4670 [facility] [place], [address] O + POVA AND PARASIT ES EXAM, ROUTINE These results were obtained using wet preparation(s) and trichrome stained smear. This test does not include testing for Crytosporidium parvum, Cyclospora, or Microsporidia. TESTING PERFORMED AT [facility]. ORIGINAL REPORT ON FILE IN LAB CONTAINS ADDITIONAL TEST SITE INFORMATION. Ova/Parasite Exam NO OVA, CYSTS, OR PARASITES FOUND. Stool Occult Blood iFOBOrder ed By: Utilization Management Manager on 12-05-2017 Lower GI hemoglobin IA Ql (St) See Note Normal [facility] Work Phone: Comment on above: STOB iFOBOccult Bloo d Positive ORGANISM 1: OCCULT BLOOD POSITIVE [facility] [address] [place], [place], [phone] CBC W/Diff, AutomatedOrdered By: Utilization Management Manager on 12-04-2017 Absolute Neut 5.1 {X10_3/uL} Normal 2.0-7.7 Compreh ensive Internal Medicine Work Phone: Comment on above: [facility] [address] [place], [place], [phone] Basophils/100 WBC (Bld) 0.4 % Normal 0-1 [facility] Work Phone: Comment on above: [facility] [address] [place], [place], [phone] Eosinophils/100 WBC (Bld) 0.2 % Normal 0-5 [facility] Work Phone: Comment on above: [facility] [address] [place], [place], [phone] Erythrocyte distribution width Ratio (RBC) 13.4 % Normal 11.6-14.6 [facility] Work Phone: Comment on above: [facility] [address]awfs[address] [place], [place], [phone] Hematocrit Volume Fraction (Bld) 47.4 % Normal 40-54 [facility] Work Phone: Comment on above: [facility] [address] [place], [address] Hemoglobin mass conc (Bld) 16.9 g/dL Abnormal 13.0-16.5 [facility] Work Phone: Comment on above: [facility] [address] [place], [address] IM GRAN % 0.300 % Normal 0.0-0.9 [facility] Work Phone: Comment on above: IG% - Immature Granu locytes (promyelocytes, myelocytes andmetamyelocytes) > 1% indicates that a LEFT SHIFT is Present. [facility] [address] [place], [place], [phone] Lymphocytes #/vol (Bld) 1.49 {X10_3/ul} Normal 0.83-4.51 [facility] Work Phone: Comment on above: [facility] [address] [place], [address] Lymphocytes/100 WBC (Bld) 16.7 % Abnormal 19-41 [facility] Work Phone: Comment on above: [facility] [address] [place], [address] MCH Entitic mass (RBC) 32.7 pg Abnormal 27.0-32.0 [facility] Work Phone: Comment on above: [facility] [address] [place], [address] MCHC mass conc (RBC) 35.7 {g/gl} Normal 32-36 [facility] prehensive Internal Medicine Work Phone: Comment on above: [facility] [address] [place], [address] MCV Entitic volume (RBC) 91.7 fL Normal 80-94 [facility] Work Phone: Comment on above: [facility] [address] [place], [address] Monocytes/100 WBC (Bld) 25.0 % Abnormal 0-10 [facility] Work Phone: Comment on above: [facility] [address] [place], [address] Neutrophils/100 WBC (Bld) 57.4 % Normal 47-70 [facility] Work Phone: Comment on above: [facility] [address] [place], [address] Platelet mean volume Entitic volume (Bld) 11.2 fL Normal 6.2-12.0 Comprehensi Internal Medicine Work Phone: Comment on above: [facility] [address] [place], [address] Platelets #/vol (Bld) 174 10*3/uL Normal 150-450 [facility] Work Phone: Comment on above: [facility] [address] [place], [address] Platelets #/vol (Bld) ADEQUATE Normal Com prehensive Internal Medicine Work Phone: Comment on above: [facility] [address] [place], [address] RBC #/vol (Bld) 5.17 {M/mm3} Normal 4.6-6.2 Compreh ensive Internal Medicine Work Phone: Comment on above: [facility] [address] [place], [address] RDW SD 44.3 fL Abnormal 35.1-43.9 [facility] Work Phone: Comment on above: [facility] [address]od[address] [place], [address] WBC #/vol (Bld) 8.9 10*3/uL Normal 4.4-11.0 Comprehe nsive Internal Medicine Work Phone: Comment on above: [facility] [address] [place], [place], [address] CBC W/Diff, Automated SEE COMMENT Normal Co mprehensive Internal Medicine Work Phone: Comment on above: MONOCYTOSIS NOTED [facility] [address] [place], [place], [address] CBC W/Diff, Automated RARE Normal Com prehensive Internal Medicine Work Phone: Comment on above: [facility] [address] [place], [place], [address] CBC W/Diff, Automated Reviewed Normal Com prehensive Internal Medicine Work Phone: Comment on above: PolycythemiaClinical correlation necessary.Trev Epperson M.D. 12/07/17Pathologist comment added AMENDED REPORT 12/07/17 1326 PATH REV previously reported as: May kaley [facility] [address] [place], [place], [address] Comprehensive Metabolic Prof ilOrdered By: Utilization Management Manager on 12-04-2017 Comprehensive metabolic 2000 panel 13 mg/dL Normal 7-18 Comprehensi ve Internal Medicine Work Phone: Comment on above: [facility] [address] [place], [place], [address] Comprehensive metabolic 2000 panel 9 1 Normal 5-15 Comprehensi ve Internal Medicine Work Phone: Comment on above: [facility] [address] [place], [place], [phone] Comprehensive metabolic 2000 panel 1.00 mg/dL Normal 0.70-1.30 Comprehensi ve Internal Medicine Work Phone: Comment on above: The validity of the calculated GFR AND GFRAA in patients over70 years has not been determined. Clinical correlation isessential. [facility] [address] [place], [place], [phone] Comprehensive metabolic 2000 panel 132 mmol/L Abnormal 136-145 Comprehensi ve Internal Medicine Work Phone: Comment on above: [facility] [address] [place], [place], [address] Comprehensive metabolic 2000 panel 24.0 mmol/L Normal 21.0-32.0 Comprehensi ve Internal Medicine Work Phone: Comment on above: [facility] [address] [place], [place], [phone] Comprehensive metabolic 2000 panel 135 mg/dL Abnormal 74-106 Comprehensi ve Internal Medicine Work Phone: Comment on above: Fasting Glucose resu lt greater than or equal to 126 mg/dLsuggests DIABETES MELLITUS per A.D.A. criteria.Please note revised GLUCOSE reference range wtlpxoxpj65/02/2018. [facility] [address] [place], [place], [address] Comprehensive metabolic 2000 panel 54 U/L Normal 16-61 Comprehensi ve Internal Medicine Work Phone: Comment on above: [facility] [address] [place], [place], [phone] Comprehensive metabolic 2000 panel 0.90 mg/dL Normal 0.20-1.00 Comprehensi ve Internal Medicine Work Phone: Comment on above: [facility] [address] [place], [place], [address] Comprehensive metabolic 2000 panel 82 mL/min Normal Comprehensi ve Internal Medicine Work Phone: Comment on above: Non- GFR Calc [facility] [address] [place], [place], [phone] Comprehensive metabolic 2000 panel 8.6 mg/dL Normal 8.5-10.1 Comprehensi ve Internal Medicine Work Phone: Comment on above: [facility] [address] [place], [address] Comprehensive metabolic 2000 panel 0.8 {RATIO} Abnormal 0.9-2.4 Comprehensi ve Internal Medicine Work Phone: Comment on above: [facility] [address] [place], [address] Comprehensive metabolic 2000 panel 99 mL/min Normal Comprehensi ve Internal Medicine Work Phone: Comment on above: GFR Calc [facility] [address] [place], [address] Comprehensive metabolic 2000 panel 99 mmol/L Normal 98-107 Comprehensi ve Internal Medicine Work Phone: Comment on above: [facility] [address] [place], [address] Comprehensive metabolic 2000 panel 4.2 g/dL Normal 2.2-4.2 Comprehensi ve Internal Medicine Work Phone: Comment on above: [facility] [address] [place], [address] Comprehensive metabolic 2000 panel 3.5 mmol/L Normal 3.5-5.1 Comprehensi ve Internal Medicine Work Phone: Comment on above: [facility] [address] [place], [address] Comprehensive metabolic 2000 panel 13.1 {RATIO} Normal 10-20 Comprehensi ve Internal Medicine Work Phone: Comment on above: [facility] [address] [place], [address] Comprehensive metabolic 2000 panel 117 U/L Normal 45-117 Comprehensi ve Internal Medicine Work Phone: Comment on above: [facility] [address] [place], [address] Comprehensive metabolic 2000 panel 7.7 g/dL Normal 6.4-8.2 Comprehensi ve Internal Medicine Work Phone: Comment on above: [facility] spital [address] [place], [place], [phone] Comprehensive metabolic 2000 panel 48 U/L Abnormal 15-37 Comprehensi ve Internal Medicine Work Phone: Comment on above: [facility] spital [address] [place], [place], [address] Comprehensive metabolic 2000 panel 3.5 g/dL Normal 3.2-5.0 Comprehensi ve Internal Medicine Work Phone: Comment on above: [facility] [address] [place], [place], [address] KEKNY-PVPXEDUPSHR-OPNXU ([phone])Ordered By: Utilization Management Manager on 11-20-2017 AFP.tumor marker mass conc 4.5 ng/mL Normal 0.0-8.3 [facility] Work Phone: Comment on above: Kenna ECLIA methodol ogy PATIENT NOT FASTINGP ERFORMED BY: Tel[employer]is Lab[facility] Read Booksrp Rfbpqd8641 [address] VivartesCentral Carolina Hospital [id number] Blood Glucose , Office (8296 2)Ordered By: Pili Ferreira on 11-20-2017 Glucose Glucometer molar conc (BldC) 104 1 Normal [facility] Work Phone: HEPATITIS PANEL ([phone])Order ed By: Utilization Management Manager on 11-20-2017 HAV IgM IA Ql Negative Normal Comprehensi ve Internal Medicine Work Phone: Comment on above: PATIENT NOT FASTINGP ERFORMED BY: Tel[facility]is [facility] Pggyof[address] VivartesScionhealthin [place] [id number] HAV IgM IA Ql Negative Normal Comprehensi ve Internal Medicine; [facility] Work Phone: HBV core IgM IA Ql Negative Normal Compre hensive Internal Medicine Work Phone: Comment on above: PATIENT NOT FASTINGP ERFORMED BY: Telogis LabI Read Booksrp Bdyioy3404 Peralta RoadCentral Carolina Hospital [id number] HBV core IgM IA Ql Negative Normal Compre hensive Internal Medicine; [facility] Work Phone: HBV surface Ag IA Ql Negative Normal Comp rehensive Internal Medicine Work Phone: Comment on above: PATIENT NOT FASTINGP ERFORMED BY: MIRIAM CorensicMargarita TreviñoHlpdsk8815 [facility] AmericaNovant [facility] [id number] HBV surface Ag IA Ql Negative Normal Comp rehensive Internal Medicine; [facility] Work Phone: HCV Ab Signal/Cutoff IA [Rel units/Vol] {ratio} Normal 0.0-0.9 [facility]; [facility] Work Phone: HCV Ab Signal/Cutoff IA RelACnc {ratio} Normal 0.0-0.9 [facility] Work Phone: Comment on above: Negative: < 0.8 Inde terminate: 0.8 - 0.9 Positive: > 0.9 . The CDC recommends that a positive HCV antibody result be followed up with a HCV Nucleic Acid Amplification test (549081). PATIENT NOT FASTINGP ERFORMED BY: MIRIAM EcoMotors6370 [facility] AmericaNov[facility] [id number] HgA1C , Office ([id number])Ordere d By: Pili Ferreira on 11-20-2017 Hemoglobin A1c/Hemoglobin.total mass fraction (Bld) 7.6 % Abnormal 4.6 - 7.1 Comprehensiv e Internal Medicine Work Phone: Metabolic Panel, Comprehensi ve ([id number])Ordered By: Utilization Management Manager on 11-20-2017 Albumin mass conc 4.3 g/dL Normal 3.5-5.5 Compreh ensive Internal Medicine Work Phone: Comment on above: PATIENT NOT FASTINGP ERFORMED BY: MIRIAM LabI Read Booksrp Fzljuv4286 charming charlieCentral [facility] Hospital [id number] Albumin/Globulin mass ratio 1.7 {ratio} Normal 1.2-2.2 [facility] Work Phone: Comment on above: PATIENT NOT FASTINGP ERFORMED BY: MIRIAM [facility] Eqkdni3880 [facility]Nov[facility] [id number] ALP [Catalytic activity/Vol] 116 U/L Normal 39-117 [facility]; [facility] Work Phone: ALP enzyme act/vol 116 [iU]/L Normal 39-117 Compre [facility] Internal Medicine Work Phone: Comment on above: PATIENT NOT FASTINGP ERFORMED BY: MIRIAM [facility] Qpuzly9417 [address] RoadDublin [place] [id number] ALT [Catalytic activity/Vol] 93 U/L Abnormal 0-44 [facility]; [facility] Work Phone: ALT enzyme act/vol 93 [iU]/L Abnormal 0-44 [facility] Work Phone: Comment on above: PATIENT NOT FASTINGP ERFORMED BY: CB [facility] Kcvlvc4747 [address] RoadDublin [place] [id number] AST [Catalytic activity/Vol] 110 U/L Abnormal 0-40 [facility]; [facility] Internal Medicine Work Phone: AST enzyme act/vol 110 [iU]/L Abnormal 0-40 [facility] Work Phone: Comment on above: PATIENT NOT FASTINGP ERFORMED BY: MIRIAM [facility] Dcauqn7409 [address] RoadDublin [place] [id number] Bilirubin mass conc 0.6 mg/dL Normal 0.0-1.2 Compr [facility] Internal Medicine Work Phone: Comment on above: PATIENT NOT FASTINGP ERFORMED BY: MIRIAM [facility] Qhawsl8531 [address] RoadDublin [place] [id number] Calcium mass conc 9.4 mg/dL Normal 8.7-10.2 Compreh ensive Internal Medicine Work Phone: Comment on above: PATIENT NOT FASTINGP ERFORMED BY: CB [facility] Hdloeg5038 [address] RoadDublin [place] [id number] Chloride molar conc 98 mmol/L Normal 96-106 Compr ensive Internal Medicine Work Phone: Comment on above: PATIENT NOT FASTINGP ERFORMED BY: CB [facility] Ivcftz3997 [address] RoadDublin [place] [id number] CO2 molar conc 23 mmol/L Normal 20-29 Comprehens randal Internal Medicine Work Phone: Comment on above: Please note refere nce interval change PATIENT NOT FASTINGP ERFORMED BY: CB [facility] Imxrdy6133 [address] RoadDublin [place] [id number] Creatinine mass conc 0.99 mg/dL Normal 0.76-1.27 Comp rehensive Internal Medicine Work Phone: Comment on above: PATIENT NOT FASTINGP ERFORMED BY: CB [facility] Fkcnpd0617 [address] RoadDublin [place] [id number] GFR/1.73 sq M predicted among blacks CKD-EPI vol rate/area (S/P/Bld) 97 mL/min/1.73 Normal Comprehensiv e Internal Medicine Work Phone: Comment on above: PATIENT NOT FASTINGP ERFORMED BY: CB [facility] Quetkf1118 [address] RoadDublin [place] [id number] GFR/1.73 sq M predicted among non-blacks CKD-EPI vol rate/area (S/P/Bld) 84 mL/min/1.73 Normal [facility] Work Phone: Comment on above: PATIENT NOT FASTINGP ERFORMED BY: CB [facility] Rpjhcu1304 [address] RoadDublin [place] [id number] Globulin mass conc (S) 2.6 g/dL Normal 1.5-4.5 [facility] Work Phone: Comment on above: PATIENT NOT FASTINGP ERFORMED BY: CB [facility] Xjzjbw7534 [address] RoadDublin [place] [id number] Glucose mass conc 123 mg/dL Abnormal 65-99 Compreh ensive Internal Medicine Work Phone: Comment on above: PATIENT NOT FASTINGP ERFORMED BY: CB [facility] Ykyqpz2229 [address] RoadDublin [place] [id number] Potassium molar conc 4.4 mmol/L Normal 3.5-5.2 Comp rehensive Internal Medicine Work Phone: Comment on above: PATIENT NOT FASTINGP ERFORMED BY: CB [facility] Smrkyx3840 [address] RoadDublin [place] [id number] Protein mass conc 6.9 g/dL Normal 6.0-8.5 Compreh ensive Internal Medicine Work Phone: Comment on above: PATIENT NOT FASTINGP ERFORMED BY: MIRIAM DiamondMargarita TreviñoWjphcd7044 [facility] [id number] Sodium molar conc 137 mmol/L Normal 134-144 Compreh ensive Internal Medicine Work Phone: Comment on above: PATIENT NOT FASTINGP ERFORMED BY: MIRIAM Klein6370 [facility] [id number] Urea nitrogen mass conc 17 mg/dL Normal 6-24 [facility] Work Phone: Comment on above: PATIENT NOT FASTINGP ERFORMED BY: MIRIAM [facility] HospitalMargarita TreviñoNssngd7673 [facility] [id number] Urea nitrogen/Creatinine mass ratio 17 mg/mg Normal 9-20 [facility] Work Phone: Comment on above: PATIENT NOT FASTINGP ERFORMED BY: MIRIAM Treviñolin6370 [facility] [id number] CBC, Platelets & Auto Diff ( [id number])Ordered By: Utilization Management Manager on 09-01-2017 Basophils #/vol (Bld) 0.0 {x10E3/uL} Normal 0.0-0.2 [facility] Work Phone: Comment on above: PATIENT WAS FASTINGP ERFORMED BY: MIRIAM Treviñolin6370 [facility] [id number] Basophils (Bld) [#/Vol] 0.0 10*3/uL Normal 0.0-0.2 [facility]; [facility] Work Phone: Basophils/100 WBC (Bld) 0 % Normal [facility] Work Phone: Comment on above: PATIENT WAS FASTINGP ERFORMED BY: MIRIAM LabCharlotteLourdes Medical Center of Burlington CountyFfulsy1608 [facility] [id number] Eosinophils #/vol (Bld) 0.0 {x10E3/uL} Normal 0.0-0.4 [facility] Work Phone: Comment on above: PATIENT WAS FASTINGP ERFORMED BY: MIRIAM LabHenry Ford Cottage Hospital6370 [facility] [id number] Eosinophils (Bld) [#/Vol] 0.0 10*3/uL Normal 0.0-0.4 [facility]; [facility] Work Phone: Eosinophils/100 WBC (Bld) 1 % Normal [facility] Work Phone: Comment on above: PATIENT WAS FASTINGP ERFORMED BY: MIRIAM DiamondThe [facility] Walyqf3628 [facility] [id number] Erythrocyte distribution width Ratio (RBC) 13.8 % Normal 12.3-15.4 [facility] Work Phone: Comment on above: PATIENT WAS FASTINGP ERFORMED BY: [facility] Qhlfbo4333 [facility] [id number] Hematocrit Volume Fraction (Bld) 47.2 % Normal 37.5-51.0 [facility] Work Phone: Comment on above: PATIENT WAS FASTINGP ERFORMED BY: MIRIAM DiamondThe [facility] Ftsqpq8849 [facility] [id number] Hemoglobin mass conc (Bld) 15.9 g/dL Normal 13.0-17.7 [facility] Work Phone: Comment on above: PATIENT WAS FASTINGP ERFORMED BY: MIRIAM DiamondThe [facility] Ecsqqs1059 [facility] [id number] Immature granulocytes #/vol (Bld) 0.0 {x10E3/uL} Normal 0.0-0.1 [facility] Work Phone: Comment on above: PATIENT WAS FASTINGP ERFORMED BY: LabHenry Ford Cottage Hospital6370 [facility] [id number] Immature granulocytes (Bld) [#/Vol] 0.0 10*3/uL Normal 0.0-0.1 [facility]; [facility] Work Phone: Immature granulocytes/100 WBC (Bld) 0 % Normal [facility] Work Phone: Comment on above: PATIENT WAS FASTINGP ERFORMED BY: LabTimothy Ville 2451870 [facility] [id number] Lymphocytes #/vol (Bld) 1.9 {x10E3/uL} Normal 0.7-3.1 [facility] Work Phone: Comment on above: PATIENT WAS FASTINGP ERFORMED BY: [facility]6370 [facility] [id number] Lymphocytes (Bld) [#/Vol] 1.9 10*3/uL Normal 0.7-3.1 [facility]; [facility] Work Phone: Lymphocytes/100 WBC (Bld) 22 % Normal [facility] Work Phone: Comment on above: PATIENT WAS FASTINGP ERFORMED BY: [address] [id number] M[facility] Entitic mass (RBC) 31.9 pg Normal 26.6-33.0 [facility] Work Phone: Comment on above: PATIENT WAS FASTINGP ERFORMED BY: [address] [id number] MCHC mass conc (RBC) 33.7 g/dL Normal 31.5-35.7 Comp [facility] Internal Medicine Work Phone: Comment on above: PATIENT WAS FASTINGP ERFORMED BY: [facility]6370 [facility] [id number] MCV Entitic volume (RBC) 95 fL Normal 79-97 [facility] Work Phone: Comment on above: PATIENT WAS FASTINGP ERFORMED BY: [place] 8925370 [facility] [id number] Monocytes #/vol (Bld) 0.9 {x10E3/uL} Normal 0.1-0.9 [facility] Work Phone: Comment on above: PATIENT WAS FASTINGP ERFORMED BY: [place] 8925370 [facility] [id number] Monocytes (Bld) [#/Vol] 0.9 10*3/uL Normal 0.1-0.9 [facility]; [facility] Work Phone: Monocytes/100 WBC (Bld) 10 % Normal [facility] Work Phone: Comment on above: PATIENT WAS FASTINGP ERFORMED BY: MIRIAM Man Klein6370 [facility] [id number] Neutrophils #/vol (Bld) 5.9 {x10E3/uL} Normal 1.4-7.0 [facility] Work Phone: Comment on above: PATIENT WAS FASTINGP ERFORMED BY: MIRIAM LabCharlotte Yvgyvw9990 [facility] [id number] Neutrophils (Bld) [#/Vol] 5.9 10*3/uL Normal 1.4-7.0 [facility]; [facility] Work Phone: Neutrophils/100 WBC (Bld) 67 % Normal [facility] Work Phone: Comment on above: PATIENT WAS FASTINGP ERFORMED BY: MIRIAM DiamondThe [facility] St[facility] Musyst5581 [facility] [id number] Platelets #/vol (Bld) 232 {x10E3/uL} Normal 150-379 [facility] Work Phone: Comment on above: PATIENT WAS FASTINGP ERFORMED BY: Sil Ntujjz3836 [facility] [id number] Platelets (Bld) [#/Vol] 232 10*3/uL Normal 150-379 [facility]; [facility] Work Phone: RBC #/vol (Bld) 4.98 {x10E6/uL} Normal 4.14-5.80 [facility] Internal Medicine Work Phone: Comment on above: PATIENT WAS FASTINGP ERFORMED BY: LabThe [facility] Igofjj9196 [facility] [id number] RBC (Bld) [#/Vol] 4.98 10*6/uL Normal 4.14-5.80 [facility]ensive [facility]; [facility] Work Phone: WBC #/vol (Bld) 8.9 {x10E3/uL} Normal 3.4-10.8 Compr ehensive Internal Medicine Work Phone: Comment on above: PATIENT WAS FASTINGP ERFORMED BY: MIRIAM Klein6370 [facility] [id number] WBC (Bld) [#/Vol] 8.9 10*3/uL Normal 3.4-10.8 [facility]prwashington [facility]; [facility] Work Phone: LIPID PANEL ([id number])Ordered B y: Utilization Management Manager on 09-01-2017 Cholesterol in HDL mass conc 32 mg/dL Abnormal [facility] Work Phone: Comment on above: PATIENT WAS FASTINGP ERFORMED BY: MIRIAM Klein[address] VivartesCentral Carolina Hospital [id number] Cholesterol in LDL mass conc 207 mg/dL Abnormal 0-99 [facility] Work Phone: Comment on above: PATIENT WAS FASTINGP ERFORMED BY: MIRIAM Klein6370 [facility] [id number] Cholesterol in LDL/Cholesterol in HDL mass ratio 6.5 {ratio_units} Abnormal 0.0-3.6 [facility] Work Phone: Comment on above: LDL/HDL Ratio Men Wo men 1/2 Avg.Risk 1.0 1.5 Avg.Risk 3.6 3.2 2X Avg.Risk 6.2 5.0 3X Avg.Risk 8.0 6.1 PATIENT WAS FASTINGP ERFORMED BY: MIRIAM Treviñolin6370 [facility] [id number] Cholesterol in VLDL mass conc 42 mg/dL Abnormal 5-40 [facility] Work Phone: Comment on above: PATIENT WAS FASTINGP ERFORMED BY: MIRIAM Treviñolin6370 [address] VivartesCentral Carolina Hospital [id number] Cholesterol mass conc 281 mg/dL Abnormal 100-199 Com prehensive Internal Medicine Work Phone: Comment on above: PATIENT WAS FASTINGP ERFORMED BY: MIRIAM Treviñolin6370 [facility] [id number] Laboratory comment Narinder (Report) LDLCOM Normal [facility] Work Phone: Comment on above: Possible Familial Hy percholesterolemia. FH should be suspected whenfasting LDL cholesterol is above 189 mg/dL or non-HDL cholesterolis above 219 mg/dL. A family history of high cholesterol and heartdisease in 1st degree relatives should be collected. J Clin Rxscggr2184;5:133-140 PATIENT WAS FASTINGP ERFORMED BY: CB [facility] Lfznxe3490 [address] VivartesCentral Carolina Hospital [id number] Triglyceride mass conc 212 mg/dL Abnormal 0-149 [facility] Work Phone: Comment on above: PATIENT WAS FASTINGP ERFORMED BY: [facility] Ojhqoi4472 [facility] [id number] Metabolic Panel, Comprehensi ve (07862)Ordered By: Utilization Management Manager on 09-01-2017 Albumin mass conc 4.4 g/dL Normal 3.5-5.5 Compreh ensive Internal Medicine Work Phone: Comment on above: PATIENT WAS FASTINGP ERFORMED BY: [facility] Ieajks3482 [facility] [id number] Albumin/Globulin mass ratio 1.8 {ratio} Normal 1.2-2.2 [facility] Work Phone: Comment on above: PATIENT WAS FASTINGP ERFORMED BY: [facility] Xjjrmy5542 [facility] [id number] ALP [Catalytic activity/Vol] 128 U/L Abnormal 39-117 [facility]; [facility] Work Phone: ALP enzyme act/vol 128 [iU]/L Abnormal 39-117 [facility] Internal Medicine Work Phone: Comment on above: PATIENT WAS FASTINGP ERFORMED BY: [employer] [facility] Ottxdq7042 [facility] [id number] ALT [Catalytic activity/Vol] 120 U/L Abnormal 0-44 [facility]; [facility] Work Phone: ALT enzyme act/vol 120 [iU]/L Abnormal 0-44 [facility] Internal Medicine Work Phone: Comment on above: PATIENT WAS FASTINGP ERFORMED BY: MIRIAM [facility] Uggafv7902 [address] RoadDublin [place] [id number] AST [Catalytic activity/Vol] 156 U/L Abnormal 0-40 [facility]; [facility] Work Phone: AST enzyme act/vol 156 [iU]/L Abnormal 0-40 [facility] Internal Medicine Work Phone: Comment on above: PATIENT WAS FASTINGP ERFORMED BY: MIRIAM LabCo Yblaib2427 [address] RoadDublin [place] [id number] Bilirubin mass conc 0.4 mg/dL Normal 0.0-1.2 Compr ensive Internal Medicine Work Phone: Comment on above: PATIENT WAS FASTINGP ERFORMED BY: LabCharlotte Oaitww9090 [address] RoadDublin [place] [id number] Calcium mass conc 9.6 mg/dL Normal 8.7-10.2 Compreh [facility] medical centerive Internal Medicine Work Phone: Comment on above: PATIENT WAS FASTINGP ERFORMED BY: [facility] Fywrsf2915 [address] Roadblin [place] [id number] Chloride molar conc 97 mmol/L Normal 96-106 Compr [facility] Internal Medicine Work Phone: Comment on above: PATIENT WAS FASTINGP ERFORMED BY: [facility] Scilew0650 [address] RoadDublin [place] [id number] CO2 molar conc 23 mmol/L Normal 18-29 Comprehens randal Internal Medicine Work Phone: Comment on above: PATIENT WAS FASTINGP ERFORMED BY: [facility] Yvyfgq6122 [address] RoadDublin [place] [id number] Creatinine mass conc 0.92 mg/dL Normal 0.76-1.27 Comp [facility] trumbullensive Internal Medicine Work Phone: Comment on above: PATIENT WAS FASTINGP ERFORMED BY: [facility] Ymfjoy8724 [address] RoadDublin [place] [id number] GFR/1.73 sq M predicted among blacks CKD-EPI vol rate/area (S/P/Bld) 106 mL/min/1.73 Normal Comprehensiv e Internal Medicine Work Phone: Comment on above: PATIENT WAS FASTINGP ERFORMED BY: MIRIAM [facility] Akpdbc5[address] [facility]in [place] [id number] GFR/1.73 sq M predicted among non-blacks CKD-EPI vol rate/area (S/P/Bld) 91 mL/min/1.73 Normal [facility] Work Phone: Comment on above: PATIENT WAS FASTINGP ERFORMED BY: MIRIAM [facility] Kfyvbf6809 [address] [facility] [id number] Globulin mass conc (S) 2.4 g/dL Normal 1.5-4.5 [facility] Work Phone: Comment on above: PATIENT WAS FASTINGP ERFORMED BY: MIRIAM LabCopetr TreviñoZaoqlb35[address] [facility] [id number] Glucose mass conc 162 mg/dL Abnormal 65-99 Compreh ensive Internal Medicine Work Phone: Comment on above: PATIENT WAS FASTINGP ERFORMED BY: MIRIAM [facility] Azvboa6108 [facility] [id number] Potassium molar conc 4.4 mmol/L Normal 3.5-5.2 Comp rehensive Internal Medicine Work Phone: Comment on above: PATIENT WAS FASTINGP ERFORMED BY: MIRIAM FieldsCopetr TreviñoRvtkqi6430 [facility] [id number] Protein mass conc 6.8 g/dL Normal 6.0-8.5 Compreh ensive Internal Medicine Work Phone: Comment on above: PATIENT WAS FASTINGP ERFORMED BY: MIRIAM [facility] Dbrcqk[address] [facility] [id number] Sodium molar conc 139 mmol/L Normal 134-144 Compreh ensive Internal Medicine Work Phone: Comment on above: PATIENT WAS FASTINGP ERFORMED BY: MIRIAM [facility] Vgtsic[address] [facility]in [place] [id number] Urea nitrogen mass conc 14 mg/dL Normal 6-24 [facility] Work Phone: Comment on above: PATIENT WAS FASTINGP ERFORMED BY: CB [facility] Cmpqgj9272 [address] RoadDublin [place] [id number] Urea nitrogen/Creatinine mass ratio 15 mg/mg Normal 9-20 [facility] Work Phone: Comment on above: PATIENT WAS FASTINGP ERFORMED BY: [employer] [facility] Voljzc7385 [address] RoadDublin [place] [id number] VITAMIN B12 AND FOLATES (826 07)Ordered By: Utilization Management Manager on 09-01-2017 Cobalamin (Vitamin B12) mass conc 726 pg/mL Normal 232-1245 [facility] Work Phone: Comment on above: PATIENT WAS FASTINGP ERFORMED BY: [employer] [facility] Qlubbd2839 [address] RoadDublin [place] [id number] Folate mass conc 12.0 ng/mL Normal Comprehe nsive Internal Medicine Work Phone: Comment on above: A serum folate angie ntration of less than 3.1 ng/mL isconsidered to represent clinical deficiency. PATIENT WAS FASTINGP ERFORMED BY: [employer] [facility] Fhhcta[address] SilverStorm Technologiesblin [place] [id number] Blood Glucose , Office (9472 2)Ordered By: Hayden Galicia on 08-11-2017 Glucose Glucometer molar conc (BldC) 233 1 Normal [facility] Work Phone: HgA1C , Office ([id number])Ordere d By: Cyn Springer on 08-11-2017 Hemoglobin A1c/Hemoglobin.total mass fraction (Bld) 8.6 % Abnormal 4.6 - 7.1 Comprehensiv e Internal Medicine Work Phone: MICROALBUMINOrdered By: Syst em Sports Announcer on 08-11-2017 Albumin DL <= 20 mg/L (U) [Mass/Vol] mg/dL Normal [facility]; [facility] Work Phone: Albumin DL <= 20 mg/L mass conc (U) mg/dL Normal [facility] Work Phone: Comment on above: PATIENT NOT FASTINGP ERFORMED BY: Tel[employer]is LabCosmartwork solutions GmbH Wrgohe1427 [address] RoadDublin [place] [id number] Albumin/Creatinine mass ratio (U) <4.5 Normal 0.0-30.0 [facility] Work Phone: Comment on above: PATIENT NOT FASTINGP ERFORMED BY: Ink361 Ieypyo5495 [facility] [id number] Creatinine mass conc (U) 66.7 mg/dL Normal [facility] Work Phone: Comment on above: PATIENT NOT FASTINGP ERFORMED BY: [facility] Sufmus8674 [facility] [id number] Urinalysis, Office ([id number])Or dered By: Cyn Springer on 08-11-2017 Bilirubin Ql (U) Negative Normal Comprehe nsive Internal Medicine Work Phone: Bilirubin Ql (U) Negative Normal Comprehe nsive Internal Medicine; [facility] Work Phone: Glucose Test strip (U) [Mass/Vol] Negative Normal [facility]; [facility] Work Phone: Glucose Test strip mass conc (U) Negative Normal [facility] Work Phone: Hemoglobin Ql (U) Negative Normal Compreh ensive Internal Medicine Work Phone: Hemoglobin Ql (U) Negative Normal Compreh ensive Internal Medicine; [facility] Work Phone: Ketones Ql (U) Negative Normal Comprehens randal Internal Medicine Work Phone: Ketones Ql (U) Negative Normal Comprehens randal Internal Medicine; [facility] Work Phone: Leukocyte esterase Test strip Ql (U) Negative Normal [facility] Work Phone: Leukocyte esterase Test strip Ql (U) Negative Normal [facility]; [facility] Work Phone: Nitrite Ql (U) Negative Normal Comprehens randal Internal Medicine Work Phone: Nitrite Ql (U) Negative Normal Comprehens randal Internal Medicine; [facility] Work Phone: pH (U) 7 [pH] Normal [facility] Work Phone: Protein Ql (U) Negative Normal Comprehens randal Internal Medicine Work Phone: Protein Ql (U) Negative Normal Comprehens randal Internal Medicine; [facility] Work Phone: Specific gravity Relative Density (U) 1.015 1 Normal Comprehensi ve Internal Medicine Work Phone: Urobilinogen mass/time (24H U) Normal Normal [facility] Work Phone: Microbiology: Culture, Wound on 12-31-2016 CUW . [facility] Work Phone: Microbiology: (P) Culture, W oundon 12-30-2016 CUW . [facility] Work Phone: Microbiology: (P) Culture, W oundon 12-29-2016 CUW . [facility] Work Phone: wound culture . Invalid Interpretation Code [facility] Work Phone: Microbiology: (P) Culture, W oundon 12-28-2016 CUW Wound CultureNo grow th aerobically. [facility] Work Phone: Culture, WoundOrdered By: Ad stem Sports Announcer on 12-26-2016 Bacteria identified Cx Nom (Wound) See Note Normal [facility] Work Phone: Comment on above: Comments: LEFT SIDE/ MID BACK CYSTGram StainGram Stain 2+ Gram positive cocci No White Blood Cells Wound CultureThere are no CLSI standards for interpretation of this Drug/Organism combination. ORGANISM 1: Actinomyces neuiiAmount Growth 2+ [facility] Kmmmpwvwsn8547 [facility] [place], [address] Office Visit: UC: Sebacceous Cyston 12-26-2016 Dietary management education, guidance, and counseling (procedure) yes Invalid Interpretation Code [facility] Work Phone: Documentation of current medications (procedure) Done Invalid Interpretation Code [facility] Work Phone: Protein mass conc yes [facility] Work Phone: Protein mass conc Done [facility] Work Phone: Smoking cessation education (procedure) yes Invalid Interpretation Code [facility] Work Phone: Tobacco smoking status NHIS Current every day smoker [facility] Work Phone: Tobacco use CPHS Current every day smoker Invali d Interpretation Code [facility] Work Phone: Blood Glucose , Office (8296 2)Ordered By: Cyn Springer on 05-14-2016 Glucose Glucometer molar conc (BldC) 96 1 Normal Comprehensive Internal Medicine Work Phone: HgA1C , Office ([phone])Ordere d By: Cyn Springer on 05-14-2016 Hemoglobin A1c/Hemoglobin.total mass fraction (Bld) 6.8 % Normal 4.6 - 7.1 Comprehensiv e Internal Medicine Work Phone: Blood Glucose , Office ([phone])Ordered By: Cyn Springer on 01-15-2016 Glucose Glucometer molar conc (BldC) 110 1 Normal [facility] Work Phone: HgA1C , Office ([phone])Ordere d By: Cyn Springer on 01-15-2016 Hemoglobin A1c/Hemoglobin.total mass fraction (Bld) 6.3 % Normal 4.6 - 7.1 Comprehensiv e Internal Medicine Work Phone: Bedside GlucoseOrdered By: Dereck ystem Sports Announcer on 11-14-2015 Bedside Glucose 151 mg/dL Abnormal 70-110 Comprehen [facility] Internal Medicine Work Phone: Comment on above: No Action RequiredMA NAGEMENT OF PATIENT CARE PER NURSING PROTOCOL [facility] LaboratoryPoint of [address] [place] [address] Bedside Glucose 110 mg/dL Normal 70-110 [facility] Medicine Work Phone: Comment on above: MANAGEMENT OF PATIEN T CARE PER NURSING PROTOCOL [facility] LaboratoryPoint of [address] [place] [address] Clinical Lists Updateon 10-07 Left ventricular Ejection fraction 60 % [facility] Work Phone: Clinical Lists Updateon 10-06 Chloride 109 mmol/L [facility] Work Phone: CO2 27.0 mmol/L Invalid Interpretation Code [facility] Work Phone: CO2 ppres (BldV) 27.0 mmol/L [facility] Work Phone: Creatinine 1.07 mg/dL [facility] Work Phone: Hematocrit (HCT) 42.5 % Invalid Interpretation Code [facility] Work Phone: Hematocrit Volume Fraction (Bld) 42.5 % [facility] Work Phone: Hemoglobin (HGB) 14.0 g/dL [facility] Work Phone: Platelets 166 10*3/mm3 Invalid Interpretation Code [facility] Work Phone: Platelets #/vol (Bld) 166 10*3/mm3 W [facility] Work Phone: Potassium 4.4 mmol/L [facility] Work Phone: Sodium 144 mmol/L [facility] Work Phone: Urea nitrogen 13 mg/dL [facility] Now Cli john Work Phone: WBC #/vol (Bld) 7.3 10*3/uL [facility] Work Phone: WBC (Leukocytes) 7.3 10*3/uL Invalid Interpretation Code [facility] Work Phone: Basic Metabolic Profile (BMP )Ordered By: Utilization Management Manager on 10-21-2015 Basic metabolic 2000 panel 22 mg/dL Abnormal 7-18 [facility] Work Phone: Comment on above: [facility] [address] [place], [address] Basic metabolic 2000 panel 56 mL/min Abnormal [facility] Work Phone: Comment on above: Non- GFR Calc [facility] [address] [place], [place], [id number] Basic metabolic 2000 panel 15.7 {RATIO} Normal 10-20 [facility] Work Phone: Comment on above: [facility] spital [address] [place], [place], [address] Basic metabolic 2000 panel 57.00 ml/min Normal [facility] Work Phone: Comment on above: [facility] [address] [place], [address] Basic metabolic 2000 panel 141 mmol/L Normal 136-145 [facility] Work Phone: Comment on above: [facility] [address] [place], [place], [address] Basic metabolic 2000 panel 8 1 Normal 5-15 [facility] Work Phone: Comment on above: [facility] [address] [place], [place], [phone] Basic metabolic 2000 panel 8.8 mg/dL Normal 8.5-10.1 [facility] Work Phone: Comment on above: [facility] [address] [place], [place], [address] Basic metabolic 2000 panel 25.0 mmol/L Normal 21.0-32.0 [facility] Work Phone: Comment on above: [facility] [address] [place], [address] Basic metabolic 2000 panel 67 mL/min Normal [facility] Work Phone: Comment on above: GFR Calc [facility] [address] [place], [address] Basic metabolic 2000 panel 151 mg/dL Abnormal 70-110 [facility] Work Phone: Comment on above: Fasting Glucose resu lt greater than or equal to 126 mg/dLsuggests DIABETES MELLITUS per A.D.A. criteria. [facility] spital [address] [place], [place], [address] Basic metabolic 2000 panel 4.2 mmol/L Normal 3.5-5.1 [facility] Work Phone: Comment on above: [facility] [address] [place], [place], [address] Basic metabolic 2000 panel 108 mmol/L Abnormal 98-107 [facility] Work Phone: Comment on above: [facility] [address] [place], [place], [address] Basic metabolic 2000 panel 1.40 mg/dL Abnormal 0.70-1.30 [facility] Work Phone: Comment on above: The validity of the calculated GFR AND GFRAA in patients over70 years has not been determined. Clinical correlation isessential. [facility] [address] [place], [place], [phone] CBC W/Diff, AutomatedOrdered By: Utilization Management Manager on 10-21-2015 Absolute Neut 12.7 {X10_3/uL} Abnormal 2.0-7.7 [facility] Internal Medicine Work Phone: Comment on above: [facility] [address] [place], [address] Basophils/100 WBC (Bld) 0.3 % Normal 0-1 [facility] Work Phone: Comment on above: [facility] [address] [place], [place], [phone] Eosinophils/100 WBC (Bld) 0.3 % Normal 0-5 [facility] Work Phone: Comment on above: [facility] [address] [place], [place], [phone] Erythrocyte distribution width Ratio (RBC) 12.7 % Normal 11.6-14.6 [facility] Work Phone: Comment on above: [facility] [address] [place], [place], [address] Hematocrit Volume Fraction (Bld) 46.2 % Normal 40-54 [facility] Work Phone: Comment on above: [facility] [address] [place], [address] Hemoglobin mass conc (Bld) 16.2 g/dL Normal 13.0-16.5 [facility] Work Phone: Comment on above: [facility] [address] [place], [address] IM GRAN % 0.300 % Normal 0.0-0.9 [facility] Work Phone: Comment on above: IG% - Immature Granu locytes (promyelocytes, myelocytes andmetamyelocytes) > 1% indicates that a LEFT SHIFT is Present. [facility] [address] [place], [place], [phone] Lymphocytes #/vol (Bld) 1.30 {X10_3/ul} Normal 0.83-4.51 [facility] Work Phone: Comment on above: [facility] [address] [place], [address] Lymphocytes/100 WBC (Bld) 8.5 % Abnormal 19-41 [facility] Work Phone: Comment on above: [facility] [address] [place], [address] MCH Entitic mass (RBC) 33.0 pg Abnormal 27.0-32.0 [facility] Work Phone: Comment on above: [facility] [address] [place], [address] MCHC mass conc (RBC) 35.1 {g/gl} Normal 32-36 [facility] prehensive Internal Medicine Work Phone: Comment on above: [facility] [address] [place], [address] MCV Entitic volume (RBC) 94.1 fL Abnormal 80-94 [facility] Work Phone: Comment on above: [facility] [address] [place], [address] Monocytes/100 WBC (Bld) 6.9 % Normal 0-10 [facility] Work Phone: Comment on above: [facility] [address] [place], [address] Neutrophils/100 WBC (Bld) 83.7 % Abnormal 47-70 [facility] Work Phone: Comment on above: [facility] [address] [place], [address] Platelet mean volume Entitic volume (Bld) 10.6 fL Normal 6.2-12.0 Comprehensi ve Internal Medicine Work Phone: Comment on above: [facility] [address] [place], [address] Platelets #/vol (Bld) 206 10*3/uL Normal 150-450 [facility] Internal Medicine Work Phone: Comment on above: [facility] [address] [place], [address] RBC #/vol (Bld) 4.91 {M/mm3} Normal 4.6-6.2 Compreh ensive Internal Medicine Work Phone: Comment on above: [facility] [address] [place], [address] RDW SD 42.9 fL Normal 35.1-43.9 [facility] Work Phone: Comment on above: [facility] [address] [place], [address] WBC #/vol (Bld) 15.2 10*3/uL Abnormal 4.4-11.0 Compreh ensive Internal Medicine Work Phone: Comment on above: [facility] [address] [place], [place], [phone] Lactic AcidOrdered By: CallMinere m Sports Announcer on 10-21-2015 Lactate molar conc 1.7 mmol/L Normal 0.4-2.0 Compre [facility] Internal Medicine Work Phone: Comment on above: [facility] spital [address] [place], [place], [phone] Urinalysis, CompleteOrdered By: Utilization Management Manager on 10-21-2015 Protein mass conc (U) 15 mg/dL Abnormal Com prehensive Internal Medicine Work Phone: Comment on above: Order Date: 10/21/15 Has pt arrived? YHow was Urine Obtained? SPEECH LANGUAGE PATHOLOGIST ASSISTANT [facility] [address] [place], [place], [phone] RBC #/vol (U) 10-25 SEEN Normal 0-5 Comprehensi ve Internal Medicine Work Phone: Comment on above: Order Date: 10/21/15 Has pt arrived? YHow was Urine Obtained? SPEECH LANGUAGE PATHOLOGIST ASSISTANT [facility] [address] [place], [place], [phone] Urinalysis complete panel - Urine Negative Normal [facility] Work Phone: Comment on above: Order Date: 10/21/15 Has pt arrived? YHow was Urine Obtained? SPEECH LANGUAGE PATHOLOGIST ASSISTANT [facility] [address] [place], [place], [address] Urinalysis complete panel - Urine Yellow Normal [facility] Work Phone: Comment on above: Order Date: 10/21/15 Has pt arrived? YHow was Urine Obtained? SPEECH LANGUAGE PATHOLOGIST ASSISTANT [facility] [address] [place], [address] Urinalysis complete panel - Urine Sl. Cloudy Normal [facility] Work Phone: Comment on above: Order Date: 10/21/15 Has pt arrived? YHow was Urine Obtained? SPEECH LANGUAGE PATHOLOGIST ASSISTANT [facility] [address] [place], [phone] Urinalysis complete panel - Urine Normal Normal [facility] Work Phone: Comment on above: Order Date: 10/21/15 Has pt arrived? YHow was Urine Obtained? SPEECH LANGUAGE PATHOLOGIST ASSISTANT [facility] [address] [place], [address] Urinalysis complete panel - Urine 1.010 1 Normal 1.002-1.03 0 [facility] Work Phone: Comment on above: Order Date: 10/21/15 Has pt arrived? YHow was Urine Obtained? SPEECH LANGUAGE PATHOLOGIST ASSISTANT [facility] [address] [place], [address] Urinalysis complete panel - Urine 6.0 1 Normal 5.0 - 8.0 [facility] Work Phone: Comment on above: Order Date: 10/21/15 Has pt arrived? YHow was Urine Obtained? SPEECH LANGUAGE PATHOLOGIST ASSISTANT [facility] [address] [place], [address] Urinalysis complete panel - Urine 1+ URATE Normal [facility] Work Phone: Comment on above: Order Date: 10/21/15 Has pt arrived? YHow was Urine Obtained? SPEECH LANGUAGE PATHOLOGIST ASSISTANT [facility] [address] [place], [address] Urinalysis complete panel - Urine 250 /ul Abnormal [facility] Work Phone: Comment on above: Order Date: 10/21/15 Has pt arrived? YHow was Urine Obtained? SPEECH LANGUAGE PATHOLOGIST ASSISTANT [facility] [address] [place], [address] Urinalysis complete panel - Urine 0 SEEN Normal [facility] Work Phone: Comment on above: Order Date: 10/21/15 Has pt arrived? YHow was Urine Obtained? SPEECH LANGUAGE PATHOLOGIST ASSISTANT [facility] [address] [place], [place], [address] Urinalysis complete panel - Urine 0-5 SEEN Normal 0-5 [facility] Work Phone: Comment on above: Order Date: 10/21/15 Has pt arrived? YHow was Urine Obtained? SPEECH LANGUAGE PATHOLOGIST ASSISTANT TO [facility] [address] [place], [place], [address] HgA1C , Office ([phone])Ordere d By: Delfina Boyd on 10-15-2015 Hemoglobin A1c/Hemoglobin.total mass fraction (Bld) 6.4 % Normal 4.6 - 7.1 Comprehensiv e Internal Medicine Work Phone: Clinical Lists Update: Prelo trash man 07-16-2015 Cholesterol 198 mg/dL Normal 100-199 [facility] Work Phone: Comment on above: PATIENT WAS FASTINGP ERFORMED BY: [employer] LabRSVP Law70 [employer] [place] [id number] HDL Cholesterol 31 mg/dL Abnormal [facility] Work Phone: Comment on above: According to ATP-III Guidelines, HDL-C >59 mg/dL is considered anegative risk factor for CHD. PATIENT WAS FASTINGP ERFORMED BY: [employer] LabI Read Booksrp Yidcwn6208 [facility] [id number] LDL Cholesterol 136 mg/dL Abnormal 0-99 [facility] Work Phone: Comment on above: PATIENT WAS FASTINGP ERFORMED BY: [facility] Stqmsp0914 [facility] [place] [id number] Triglyceride 155 mg/dL Abnormal 0-149 [facility] Work Phone: Comment on above: PATIENT WAS FASTINGP ERFORMED BY: [employer] LabI Read Booksrp Ohmnzg2769 [facility] [place] [id number] LDL/HDL ratio, serum 4.4 High [facility] Work Phone: very low density lipoproteins 31 mg/dL [facility] Work Phone: LIPID PANEL ([phone])Ordered B y: Utilization Management Manager on 07-16-2015 Cholesterol in LDL/Cholesterol in HDL mass ratio 4.4 {ratio_units} Abnormal 0.0-3.6 [facility] Work Phone: Comment on above: LDL/HDL Ratio Men Wo men 1/2 Avg.Risk 1.0 1.5 Avg.Risk 3.6 3.2 2X Avg.Risk 6.2 5.0 3X Avg.Risk 8.0 6.1 PATIENT WAS FASTINGP ERFORMED BY: MIRIAM LabCo Uiqlvk5429 [facility] [id number] Cholesterol in VLDL mass conc 31 mg/dL Normal 5-40 [facility] Work Phone: Comment on above: PATIENT WAS FASTINGP ERFORMED BY: MIRIAM LabCoLourdes Medical Center of Burlington CountyVvwlcw3780 [facility] [id number] METABOLIC PANEL, COMPREHENSI VE ([id number])Ordered By: Utilization Management Manager on 07-16-2015 Albumin mass conc 4.5 g/dL Normal 3.5-5.5 [facility]preh [facility] Internal Medicine Work Phone: Comment on above: PATIENT WAS FASTINGP ERFORMED BY: MIRIAM LabThe [facility] Zxzjsz3885 [facility] [id number] Information: [id number] Albumin/Globulin mass ratio 2.3 {ratio} Normal 1.1-2.5 [facility] Work Phone: Comment on above: PATIENT WAS FASTINGP ERFORMED BY: [facility] Mbecby3616 [facility] [id number] Information: [id number] ALP [Catalytic activity/Vol] 81 U/L Normal 39-117 [facility]; [facility] Work Phone: ALP enzyme act/vol 81 [iU]/L Normal 39-117 [facility] Internal Medicine Work Phone: Comment on above: PATIENT WAS FASTINGP ERFORMED BY: MIRIAM [facility] Hkihdy3684 [facility] [id number] Information: [id number] ALT [Catalytic activity/Vol] 21 U/L Normal 0-44 [facility]; [facility] Internal Medicine Work Phone: ALT enzyme act/vol 21 [iU]/L Normal 0-44 [facility] Internal Medicine Work Phone: Comment on above: PATIENT WAS FASTINGP ERFORMED BY: MIRIAM [facility]6370 [facility] [id number] Information: [id number] AST [Catalytic activity/Vol] 21 U/L Normal 0-[address] [facility] Internal Medicine; [facility] Internal Medicine Work Phone: AST enzyme act/vol 21 [iU]/L Normal 0-40 [facility] Internal Medicine Work Phone: Comment on above: PATIENT WAS FASTINGP ERFORMED BY: MIRIAM [place] [id number] [facility] [id number] Information: [id number] Bilirubin [Mass/Vol] mg/dL Normal 0.0-1.2 Comp [facility]; [facility] Internal Medicine Work Phone: Bilirubin mass conc mg/dL Normal 0.0-1.2 [facility] Internal Medicine Work Phone: Comment on above: PATIENT WAS FASTINGP ERFORMED BY: MIRIAM [place] [id number] [facility] [id number] Information: [id number] Calcium mass conc 9.3 mg/dL Normal 8.7-10.2 [facility] Work Phone: Comment on above: PATIENT WAS FASTINGP ERFORMED BY: [place] [id number] [facility] [id number] Information: [id number] Chloride molar conc 103 mmol/L Normal 97-108 Compr [facility] Internal Medicine Work Phone: Comment on above: PATIENT WAS FASTINGP ERFORMED BY: MIRIAM [facility]6370 [facility] [id number] Information: [id number] CO2 molar conc 24 mmol/L Normal 18-29 Comprehens randal Internal Medicine Work Phone: Comment on above: PATIENT WAS FASTINGP ERFORMED BY: [facility] Tsosih6453 [place] [facility] [id number] Information: [id number] Creatinine mass conc 0.81 mg/dL Normal 0.76-1.27 Comp rehensive Internal Medicine Work Phone: Comment on above: PATIENT WAS FASTINGP ERFORMED BY: [facility] Lqtuvy5430 [facility] [id number] Information: [id number] GFR/1.73 sq M predicted among blacks CKD-EPI vol rate/area (S/P/Bld) 115 mL/min/1.73 Normal Comprehensiv e Internal Medicine Work Phone: Comment on above: PATIENT WAS FASTINGP ERFORMED BY: [facility] Dpkfgy0064 [facility] [id number] Information: [id number] GFR/1.73 sq M predicted among non-blacks CKD-EPI vol rate/area (S/P/Bld) 99 mL/min/1.73 Normal [facility] Work Phone: Comment on above: PATIENT WAS FASTINGP ERFORMED BY: [facility] Qdaqvn8835 [facility] [id number] Information: [id number] Globulin mass conc (S) 2.0 g/dL Normal 1.5-4.5 [facility] Work Phone: Comment on above: PATIENT WAS FASTINGP ERFORMED BY: [facility] Lovbfg0080 [facility] [id number] Information: [id number] Glucose mass conc 112 mg/dL Abnormal 65-99 Compreh ensive Internal Medicine Work Phone: Comment on above: PATIENT WAS FASTINGP ERFORMED BY: [facility] Bngvvr3899 [facility] [id number] Information: [id number] Potassium molar conc 4.6 mmol/L Normal 3.5-5.2 Comp rehensive Internal Medicine Work Phone: Comment on above: PATIENT WAS FASTINGP ERFORMED BY: MIRIAM FieldsThe [facility] St[facility] Cqlkbv1429 [facility] [id number] Information: [id number] Protein mass conc 6.5 g/dL Normal 6.0-8.5 Compreh ensive Internal Medicine Work Phone: Comment on above: PATIENT WAS FASTINGP ERFORMED BY: [facility] Cohtkc6289 [facility] [id number] Information: [id number] Sodium molar conc 140 mmol/L Normal 134-144 Compreh ensive Internal Medicine Work Phone: Comment on above: PATIENT WAS FASTINGP ERFORMED BY: [facility] Gjvqrq2643 [facility] [id number] Information: [id number] Urea nitrogen mass conc 14 mg/dL Normal 6-24 [facility] Work Phone: Comment on above: PATIENT WAS FASTINGP ERFORMED BY: LabHenry [facility]6370 [facility] [id number] Information: [id number] Urea nitrogen/Creatinine mass ratio 17 mg/mg Normal 9-20 [facility] Work Phone: Comment on above: PATIENT WAS FASTINGP ERFORMED BY: LabHenry [facility] Hospital6370 [facility] [id number] Information: [id number] PSA (PROSTATE SPECIFIC ANTIG EN) (V76.44)Ordered By: Utilization Management Manager on 07-16-2015 Prostate specific Ag mass conc 0.2 ng/mL Normal 0.0-4.0 [facility] Work Phone: Comment on above: Kenna ECLIA methodol ogy. .According to the [place] [employer], Serum PSA shoulddecrease and remain at undetectable levels after radicalprostatectomy. The AUA defines biochemical recurrence as an initialPSA value 0.2 ng/mL or greater followed by a subsequent confirmatoryPSA value 0.2 ng/mL or greater.Values obtained with different assay methods or kits cannot be usedinterchangeably. Results cannot be interpreted as absolute evidenceof the presence or absence of malignant disease. PATIENT WAS FASTINGP ERFORMED BY: [facility] Henfqg5242 [place] [id number] Basic Metabolic Profile (BMP )Ordered By: Utilization Management Manager on 05-06-2015 Basic metabolic 2000 panel 67 mL/min Normal [facility] Work Phone: Comment on above: Non- GFR Calc 'TROP' Serial specim en #1, #2, #3, or #4: [address] [place] [address] [place], [place], [address] Basic metabolic 2000 panel 11.7 {RATIO} Normal 10-20 [facility] Work Phone: Comment on above: 'TROP' Serial specim en #1, #2, #3, or #4: [address] [place] [address] [place], [place], [address] Basic metabolic 2000 panel 9.0 mg/dL Normal 8.5-10.1 [facility] Work Phone: Comment on above: 'TROP' Serial specim en #1, #2, #3, or #4: [address] [place] [address] [place], [place], [address] Basic metabolic 2000 panel 155 mg/dL Abnormal 70-110 [facility] Work Phone: Comment on above: Fasting Glucose resu lt greater than or equal to 126 mg/dLsuggests DIABETES MELLITUS per A.D.A. criteria. 'TROP' Serial specim en #1, #2, #3, or #4: [address] [place] [address] [place], [place], [address] Basic metabolic 2000 panel 64.26 ml/min Normal [facility] Work Phone: Comment on above: 'TROP' Serial specim en #1, #2, #3, or #4: [address] [place] [address] [place], [place], [address] Basic metabolic 2000 panel 1.20 mg/dL Normal 0.70-1.30 [facility] Work Phone: Comment on above: The validity of the calculated GFR AND GFRAA in patients over70 years has not been determined. Clinical correlation isessential. 'TROP' Serial specim en #1, #2, #3, or #4: [address] [place] [address] [place], [place], [address] Basic metabolic 2000 panel 140 mmol/L Normal 136-145 [facility] Work Phone: Comment on above: 'TROP' Serial specim en #1, #2, #3, or #4: [address] [place] [address] [place], [place], [address] Basic metabolic 2000 panel 3.9 mmol/L Normal 3.5-5.1 [facility] Work Phone: Comment on above: 'TROP' Serial specim en #1, #2, #3, or #4: [address] [place] [address] [place], [place], [phone] Basic metabolic 2000 panel 6 1 Normal 5-15 [facility] Work Phone: Comment on above: 'TROP' Serial specim en #1, #2, #3, or #4: [address] [place] [address] [place], [place], [phone] Basic metabolic 2000 panel 80 mL/min Normal [facility] Work Phone: Comment on above: GFR Calc 'TROP' Serial specim en #1, #2, #3, or #4: [address] [place] [address] [place], [place], [phone] Basic metabolic 2000 panel 104 mmol/L Normal 98-107 [facility] Work Phone: Comment on above: 'TROP' Serial specim en #1, #2, #3, or #4: [address] [place] [address] [place], [place], [phone] Basic metabolic 2000 panel 30.0 mmol/L Normal 21.0-32.0 [facility] Work Phone: Comment on above: 'TROP' Serial specim en #1, #2, #3, or #4: [address] [place] [address] [place], [place], [phone] Basic metabolic 2000 panel 14 mg/dL Normal 7-18 [facility] Work Phone: Comment on above: 'TROP' Serial specim en #1, #2, #3, or #4: [address] [place] [address] [place], [place], [phone] CBC W/Diff, AutomatedOrdered By: Utilization Management Manager on 05-06-2015 Absolute Neut 4.5 {X10_3/uL} Normal 2.0-7.7 Compreh ensive Internal Medicine Work Phone: Comment on above: [facility] [address] [place], [place], [phone] Basophils/100 WBC (Bld) 0.5 % Normal 0-1 [facility] Work Phone: Comment on above: [facility] [address] [place], [place], [phone] Eosinophils/100 WBC (Bld) 0.9 % Normal 0-5 [facility] Work Phone: Comment on above: [facility] [address] [place], [place], [phone] Erythrocyte distribution width Ratio (RBC) 13.0 % Normal 11.6-14.6 [facility] Work Phone: Comment on above: [facility] [address] [place], [place], [phone] Hematocrit Volume Fraction (Bld) 47.3 % Normal 40-54 [facility] Work Phone: Comment on above: [facility] [address] [place], [address] Hemoglobin mass conc (Bld) 16.0 g/dL Normal 13.0-16.5 [facility] Work Phone: Comment on above: [facility] [address] [place], [address] IM GRAN % 0.200 % Normal 0.0-0.9 [facility] Work Phone: Comment on above: IG% - Immature Granu locytes (promyelocytes, myelocytes andmetamyelocytes) > 1% indicates that a LEFT SHIFT is Present. [facility] [address] [place], [place], [phone] Lymphocytes #/vol (Bld) 3.09 {X10_3/ul} Normal 0.83-4.51 [facility] Work Phone: Comment on above: [facility] [address] [place], [address] Lymphocytes/100 WBC (Bld) 36.0 % Normal 19-41 [facility] Work Phone: Comment on above: [facility] [address] [place], [address] MCH Entitic mass (RBC) 33.1 pg Abnormal 27.0-32.0 [facility] Work Phone: Comment on above: [facility] [address] [place], [address] MCHC mass conc (RBC) 33.8 {g/gl} Normal 32-36 [facility] Work Phone: Comment on above: [facility] [address] [place], [address] MCV Entitic volume (RBC) 97.7 fL Abnormal 80-94 [facility] Work Phone: Comment on above: [facility] [address] [place], [address] Monocytes/100 WBC (Bld) 10.2 % Abnormal 0-10 [facility] Work Phone: Comment on above: [facility] [address] [place], [address] Neutrophils/100 WBC (Bld) 52.2 % Normal 47-70 [facility] Work Phone: Comment on above: [facility] [address] [place], [address] Platelet mean volume Entitic volume (Bld) 11.1 fL Normal 6.2-12.0 Comprehensi Internal Medicine Work Phone: Comment on above: [facility] [address] [place], [address] Platelets #/vol (Bld) 183 10*3/uL Normal 150-450 [facility] mprehkettering [facility] Internal Medicine Work Phone: Comment on above: [facility] [address] [place], [address] RBC #/vol (Bld) 4.84 {M/mm3} Normal 4.6-6.2 [facility] Work Phone: Comment on above: [facility] [address] [place], [address] RDW SD 46.4 fL Abnormal 35.1-43.9 [facility] Work Phone: Comment on above: [facility] [address] [place], [address] WBC #/vol (Bld) 8.6 10*3/uL Normal 4.4-11.0 [facility] Internal [facility] Work Phone: Comment on above: [facility] [address] [place], [address] Partial Thromboplast TimeOrd ered By: Utilization Management Manager on 05-06-2015 aPTT Coag time (PPP) 26.8 s Normal 24.1-36.2 Comp rehensive Internal Medicine Work Phone: Comment on above: [facility] [address] [place], [address] Prothrombin Time w/INROrdere d By: Utilization Management Manager on 05-06-2015 INR Coag RelTime (PPP) 0.8 {INR} Normal [facility] Work Phone: Comment on above: [facility] [address] [place], [address] Prothrombin time (PT) Coag time (PPP) 11.7 s Normal 11.7-14.9 [facility] Work Phone: Comment on above: [facility] [address] [place], [address] Troponin-IOrdered By: Utilization Management Manager on 05-06-2015 Troponin I.cardiac mass conc ng/mL Normal [facility] Work Phone: Comment on above: TROPONIN-I EXPECTED VALUES <0.05 NEGATIVE 0.06 - 0.59 AT RISK OF [place] > OR = 0.60 SUGGEST [place] 'TROP' Serial specim en #1, #2, #3, or #4: [address] [place] [address] [place], [address] Clinical Lists Update: Prelo trash man 03-09-2014 Anion gap 6 mmol/L Invalid Interpretation Code [facility] Work Phone: Anion gap molar conc 6 mmol/L [facility] Work Phone: BUN/Creatinine Ratio 13 mg/mg [facility] Work Phone: Calcium 8.7 mg/dL [facility] Work Phone: Glucose 100 mg/dL Invalid Interpretation Code [facility] Work Phone: Glucose mass conc 100 mg/dL [facility] Work Phone: ECPRW-HZBMAIMVTDD-WWRPA ([phone])Ordered By: Utilization Management Manager on 12-13-2013 AFP.tumor marker mass conc 3.4 ng/mL Normal 0.0-8.3 [facility] Work Phone: Comment on above: Kenna ECLIA methodol ogy PATIENT NOT FASTINGP ERFORMED BY: MIRIAM [facility] Sjcvpg4113 [facility] [id number] HEPATIC FUNCTION PANEL (8007 6)Ordered By: Utilization Management Manager on 12-13-2013 Albumin mass conc 4.2 g/dL Normal 3.5-5.5 [facility] Internal Medicine Work Phone: Comment on above: PATIENT NOT FASTINGP ERFORMED BY: MIRIAM [facility] Onkkgs0101 [facility] [id number] Information: [id number] ALP [Catalytic activity/Vol] 119 U/L Abnormal 39-117 [facility]; [facility] Work Phone: ALP enzyme act/vol 119 [iU]/L Abnormal 39-117 [facility] Internal Medicine Work Phone: Comment on above: PATIENT NOT FASTINGP ERFORMED BY: MIRIAM [facility] Wyahml7697 [facility] [id number] Information: [id number] ALT [Catalytic activity/Vol] 21 U/L Normal 0-44 [facility]; [facility] Work Phone: ALT enzyme act/vol 21 [iU]/L Normal 0-44 [facility] Internal Medicine Work Phone: Comment on above: PATIENT NOT FASTINGP ERFORMED BY: [facility] Jyvoas0235 [facility] [id number] Information: [id number] AST [Catalytic activity/Vol] 24 U/L Normal 0-40 [facility]; [facility] Work Phone: AST enzyme act/vol 24 [iU]/L Normal 0-40 [facility] Internal Medicine Work Phone: Comment on above: PATIENT NOT FASTINGP ERFORMED BY: MIRIAM [facility] Tolgke[address] [facility] [id number] Information: [id number] Bilirubin mass conc 0.4 mg/dL Normal 0.0-1.2 Compr ehensive Internal Medicine Work Phone: Comment on above: PATIENT NOT FASTINGP ERFORMED BY: MIRIAM [facility] Ujbgck[address] [facility] [id number] Information: [id number] Bilirubin.direct mass conc 0.09 mg/dL Normal 0.00-0.40 [facility] Work Phone: Comment on above: PATIENT NOT FASTINGP ERFORMED BY: MIRIAM [facility] Qtwvft9523 [facility] [id number] Information: [id number] Protein mass conc 6.6 g/dL Normal 6.0-8.5 Compreh ensive Internal Medicine Work Phone: Comment on above: PATIENT NOT FASTINGP ERFORMED BY: [facility] Msbayb5262 [facility] [id number] Information: [id number] AMYLASE (70365)Ordered By: Dereck stylestem Sports Announcer on 11-29-2013 Amylase enzyme act/vol 36 U/L Normal 31-124 [facility] Work Phone: Comment on above: PATIENT NOT FASTINGP ERFORMED BY: MIRIAM [facility] Cyftkl9047 [facility] [id number] CBC, Platelets & Auto Diff ( 85015)Ordered By: Utilization Management Manager on 11-29-2013 Basophils #/vol (Bld) 0.0 {x10E3/uL} Normal 0.0-0.2 [facility] Work Phone: Comment on above: PATIENT NOT FASTINGP ERFORMED BY: CB [facility] Obepou[address] [facility] [id number] Information: [id number] Basophils (Bld) [#/Vol] 0.0 10*3/uL Normal 0.0-0.2 [facility]; [facility] Work Phone: Basophils/100 WBC (Bld) 0 % Normal 0-3 [facility] Work Phone: Comment on above: PATIENT NOT FASTINGP ERFORMED BY: MIRIAM Price [facility] [id number] Information: [id number] Eosinophils #/vol (Bld) 0.1 {x10E3/uL} Normal 0.0-0.4 [facility] Work Phone: Comment on above: PATIENT NOT FASTINGP ERFORMED BY: MIRIAM [address] [id number] Information: [id number] Eosinophils (Bld) [#/Vol] 0.1 10*3/uL Normal 0.0-0.4 [facility]; [facility] Work Phone: Eosinophils/100 WBC (Bld) 1 % Normal 0-5 [facility] Work Phone: Comment on above: PATIENT NOT FASTINGP ERFORMED BY: MIRIAM [address] [id number] Information: [id number] Erythrocyte distribution width Ratio (RBC) 13.7 % Normal 12.3-15.4 [facility] Work Phone: Comment on above: PATIENT NOT FASTINGP ERFORMED BY: MIRIAM Mujica[address] [id number] Information: [id number] Hematocrit Volume Fraction (Bld) 44.7 % Normal 37.5-51.0 [facility] Work Phone: Comment on above: PATIENT NOT FASTINGP ERFORMED BY: MIRIAM [place] [id number] [facility] [id number] Information: [id number] Hemoglobin mass conc (Bld) 15.5 g/dL Normal 12.6-17.7 [facility] Work Phone: Comment on above: PATIENT NOT FASTINGP ERFORMED BY: MIRIAM Mujica Rzbido0239 [facility] [id number] Information: [id number] Immature granulocytes #/vol (Bld) 0.0 {x10E3/uL} Normal 0.0-0.1 [facility] Work Phone: Comment on above: PATIENT NOT FASTINGP ERFORMED BY: Diamond[address] [id number] Information: [id number] Immature granulocytes (Bld) [#/Vol] 0.0 10*3/uL Normal 0.0-0.1 [facility]; [facility] Work Phone: Immature granulocytes/100 WBC (Bld) 0 % Normal 0-2 [facility] Work Phone: Comment on above: PATIENT NOT FASTINGP ERFORMED BY: Diamond[address] [id number] Information: [id number] Lymphocytes #/vol (Bld) 2.1 {x10E3/uL} Normal 0.7-3.1 [facility] Work Phone: Comment on above: PATIENT NOT FASTINGP ERFORMED BY: Sil Dhfgmc8790 [facility] [id number] Information: [id number] Lymphocytes (Bld) [#/Vol] 2.1 10*3/uL Normal 0.7-3.1 [facility]; [facility] Work Phone: Lymphocytes/100 WBC (Bld) 22 % Normal 14-46 [facility] Work Phone: Comment on above: PATIENT NOT FASTINGP ERFORMED BY: MIRIAM [address] [id number] Information: [id number] MCH Entitic mass (RBC) 32.5 pg Normal 26.6-33.0 [facility] Work Phone: Comment on above: PATIENT NOT FASTINGP ERFORMED BY: [place] 8925370 [facility] [id number] Information: [id number] MCHC mass conc (RBC) 34.7 g/dL Normal 31.5-35.7 [facility] Internal Medicine Work Phone: Comment on above: PATIENT NOT FASTINGP ERFORMED BY: [address] [id number] Information: [id number] MCV Entitic volume (RBC) 94 fL Normal 79-97 [facility] Work Phone: Comment on above: PATIENT NOT FASTINGP ERFORMED BY: [address] [id number] Information: [id number] Monocytes #/vol (Bld) 0.9 {x10E3/uL} Normal 0.1-0.9 [facility] Work Phone: Comment on above: PATIENT NOT FASTINGP ERFORMED BY: [address] [id number] Information: [id number] Monocytes (Bld) [#/Vol] 0.9 10*3/uL Normal 0.1-0.9 [facility]; [facility] Work Phone: Monocytes/100 WBC (Bld) 9 % Normal 4-12 [facility] Work Phone: Comment on above: PATIENT NOT FASTINGP ERFORMED BY: [place] 8925370 [facility] [id number] Information: [id number] Neutrophils #/vol (Bld) 6.3 {x10E3/uL} Normal 1.4-7.0 [facility] Work Phone: Comment on above: PATIENT NOT FASTINGP ERFORMED BY: [place] 8925370 [facility] [id number] Information: [id number] Neutrophils (Bld) [#/Vol] 6.3 10*3/uL Normal 1.4-7.0 [facility]; [facility] Work Phone: Neutrophils/100 WBC (Bld) 68 % Normal 40-74 [facility] Work Phone: Comment on above: PATIENT NOT FASTINGP ERFORMED BY: MIRIAM Treviñolin6370 [facility] [id number] Information: [id number] Platelets #/vol (Bld) 230 {x10E3/uL} Normal 150-379 [facility] Work Phone: Comment on above: Please note refere nce interval change PATIENT NOT FASTINGP ERFORMED BY: MIRIAM Sil [address] [id number] Information: [id number] Platelets (Bld) [#/Vol] 230 10*3/uL Normal 150-379 [facility]; [facility] Internal Medicine Work Phone: RBC #/vol (Bld) 4.77 {x10E6/uL} Normal 4.14-5.80 Comp [facility] Internal Medicine Work Phone: Comment on above: PATIENT NOT FASTINGP ERFORMED BY: MIRIAM Silpetr [address] [id number] Information: [id number] RBC (Bld) [#/Vol] 4.77 10*6/uL Normal 4.14-5.80 Compr ensive Internal Medicine; [facility] Internal Medicine Work Phone: WBC #/vol (Bld) 9.4 {x10E3/uL} Normal 3.4-10.8 [facility] Internal Medicine Work Phone: Comment on above: CBC Results Repeat ed PATIENT NOT FASTINGP ERFORMED BY: MIRIAM [address] [id number] Information: [id number] WBC (Bld) [#/Vol] 9.4 10*3/uL Normal 3.4-10.8 Compre [facility] Internal Medicine; [facility] Work Phone: LIPASE ([id number])Ordered By: stem Sports Announcer on 11-29-2013 Lipase enzyme act/vol 41 U/L Normal 0-59 Com prehensive Internal Medicine Work Phone: Comment on above: PATIENT NOT FASTINGP ERFORMED BY: CB [facility] Bzztod3793 [address] [place] [id number] Metabolic Panel, Comprehensi ve (74010)Ordered By: Utilization Management Manager on 11-29-2013 Albumin mass conc 4.2 g/dL Normal 3.5-5.5 Compreh ensive Internal Medicine Work Phone: Comment on above: PATIENT NOT FASTINGP ERFORMED BY: CB [facility] Ybfpnp4279 [address] [place] [id number] Albumin/Globulin mass ratio 1.8 {ratio} Normal 1.1-2.5 [facility] Work Phone: Comment on above: PATIENT NOT FASTINGP ERFORMED BY: CB [facility] Atceoc2596 [address]ublin [place] [id number] ALP [Catalytic activity/Vol] 116 U/L Normal 39-117 [facility]; [facility] Internal Medicine Work Phone: ALP enzyme act/vol 116 [iU]/L Normal 39-117 [facility] Internal Medicine Work Phone: Comment on above: PATIENT NOT FASTINGP ERFORMED BY: CB [facility] Ngkqfp8544 [address] [place] [id number] ALT [Catalytic activity/Vol] 31 U/L Normal 0-44 [facility]; [facility] Work Phone: ALT enzyme act/vol 31 [iU]/L Normal 0-44 [facility] Internal Medicine Work Phone: Comment on above: PATIENT NOT FASTINGP ERFORMED BY: CB [facility] Razbgn8763 [address] [place] [id number] AST [Catalytic activity/Vol] 28 U/L Normal 0-40 [facility]; [facility] Internal Medicine Work Phone: AST enzyme act/vol 28 [iU]/L Normal 0-40 Compre hensive Internal Medicine Work Phone: Comment on above: PATIENT NOT FASTINGP ERFORMED BY: MIRIAM [facility] Miwayy9498 [address] [place] [id number] Bilirubin mass conc 0.4 mg/dL Normal 0.0-1.2 Compr ehensive Internal Medicine Work Phone: Comment on above: PATIENT NOT FASTINGP ERFORMED BY: CB [facility] Nuibxh6612 [address]Dublin [place] [id number] Calcium mass conc 9.2 mg/dL Normal 8.7-10.2 Compreh ensive Internal Medicine Work Phone: Comment on above: PATIENT NOT FASTINGP ERFORMED BY: CB [facility] Zmbxog7568 [address] [place] [id number] Chloride molar conc 101 mmol/L Normal 97-108 Compr [facility] Internal Medicine Work Phone: Comment on above: PATIENT NOT FASTINGP ERFORMED BY: MIRIAM [facility] Ejqown1871 [address]in [place] [id number] CO2 molar conc 23 mmol/L Normal 18-29 Comprehens randal Internal Medicine Work Phone: Comment on above: Please note refere nce interval change PATIENT NOT FASTINGP ERFORMED BY: MIRIAM [facility] Pwktcg0832 [address]ublin [place] [id number] Creatinine mass conc 0.91 mg/dL Normal 0.76-1.27 Comp [facility] Internal [facility] Work Phone: Comment on above: PATIENT NOT FASTINGP ERFORMED BY: CB [facility] Ieundp9970 [address] [place] [id number] GFR/1.73 sq M predicted among blacks CKD-EPI vol rate/area (S/P/Bld) 109 mL/min/1.73 Normal Comprehensiv e Internal Medicine Work Phone: Comment on above: PATIENT NOT FASTINGP ERFORMED BY: CB [facility] Wnhosx5881 [address] [place] [id number] GFR/1.73 sq M predicted among non-blacks CKD-EPI vol rate/area (S/P/Bld) 95 mL/min/1.73 Normal [facility] Work Phone: Comment on above: PATIENT NOT FASTINGP ERFORMED BY: MIRIAM [facility] Wjwtse7858 [address] [place] [id number] Globulin mass conc (S) 2.3 g/dL Normal 1.5-4.5 [facility] Work Phone: Comment on above: PATIENT NOT FASTINGP ERFORMED BY: MIRIAM [facility] Wbyhoi6816 [address] [place] [id number] Glucose mass conc 102 mg/dL Abnormal 65-99 Compreh ensive Internal Medicine Work Phone: Comment on above: PATIENT NOT FASTINGP ERFORMED BY: MIRIAM LabCharlottepetr TreviñoUptroq2045 [address] [place] [id number] Potassium molar conc 4.2 mmol/L Normal 3.5-5.2 Comp rehensive Internal Medicine Work Phone: Comment on above: PATIENT NOT FASTINGP ERFORMED BY: MIRIAM [facility] Tmvesc6682 [address] [place] [id number] Protein mass conc 6.5 g/dL Normal 6.0-8.5 Compreh ensive Internal Medicine Work Phone: Comment on above: PATIENT NOT FASTINGP ERFORMED BY: MIRIAM [facility] TreviñoGvrtly9242 [address]Duin [place] [id number] Sodium molar conc 138 mmol/L Normal 134-144 Compreh ensive Internal Medicine Work Phone: Comment on above: PATIENT NOT FASTINGP ERFORMED BY: MIRIAM [facility] Pepelb1899 [address] [place] [id number] Urea nitrogen mass conc 11 mg/dL Normal 6-24 [facility] Work Phone: Comment on above: PATIENT NOT FASTINGP ERFORMED BY: MIRIAM [facility] Jxpehy3388 [address] [place] [id number] Urea nitrogen/Creatinine mass ratio 12 mg/mg Normal 9-20 [facility] Work Phone: Comment on above: PATIENT NOT FASTINGP ERFORMED BY: CB [facility] Pmcgvc3845 [facility] [id number] PSA (PROSTATE SPECIFIC ANTIG EN) (V76.44)Ordered By: Utilization Management Manager on 11-29-2013 Prostate specific Ag mass conc 0.2 ng/mL Normal 0.0-4.0 [facility] Work Phone: Comment on above: Kenna ECLIA methodol ogy. .According to the [place] [employer], Serum PSA shoulddecrease and remain at undetectable levels after radicalprostatectomy. The AUA defines biochemical recurrence as an initialPSA value 0.2 ng/mL or greater followed by a subsequent confirmatoryPSA value 0.2 ng/mL or greater.Values obtained with different assay methods or kits cannot be usedinterchangeably. Results cannot be interpreted as absolute evidenceof the presence or absence of malignant disease. PATIENT NOT FASTINGP ERFORMED BY: [facility] Corplin6370 [facility] [id number] Urinalysis, Office ([id number])Or dered By: Edith Pang on 11-29-2013 Bilirubin Ql (U) Negative Normal Comprehe nsive Internal Medicine Work Phone: Bilirubin Ql (U) Negative Normal Comprehe nsive Internal Medicine; [facility] Work Phone: Glucose Test strip (U) [Mass/Vol] Negative Normal [facility]; [facility] Work Phone: Glucose Test strip mass conc (U) Negative Normal [facility] Work Phone: Hemoglobin Ql (U) Negative Normal Compreh ensive Internal Medicine Work Phone: Hemoglobin Ql (U) Negative Normal Compreh ensive Internal Medicine; [facility] Work Phone: Ketones Ql (U) Negative Normal Comprehens randal Internal Medicine Work Phone: Ketones Ql (U) Negative Normal Comprehens randal Internal Medicine; [facility] Work Phone: Leukocyte esterase Test strip Ql (U) Negative Normal [facility] Work Phone: Leukocyte esterase Test strip Ql (U) Negative Normal [facility]; [facility] Work Phone: Nitrite Ql (U) Negative Normal Comprehens randal Internal Medicine Work Phone: Nitrite Ql (U) Negative Normal Comprehens randal Internal Medicine; [facility] Work Phone: pH (U) 6 [pH] Abnormal [facility] Work Phone: Protein Ql (U) Negative Normal Comprehens randal Internal Medicine Work Phone: Protein Ql (U) Negative Normal Comprehens randal Internal Medicine; [facility] Work Phone: Specific gravity Relative Density (U) 1.020 1 Normal Comprehensi ve Internal Medicine Work Phone: Urobilinogen mass/time (24H U) Normal Normal [facility] Work Phone: STEPHAN CULTURE-BLOOD (24230)Ord ered By: Utilization Management Manager on 02-15-2013 Bacteria identified Cx Nom (Bld) Final report Normal [facility] Work Phone: Comment on above: PATIENT NOT FASTINGP ERFORMED BY: MIRIAM LabI Read Bookspetr TreviñoFjzneh7762 [facility] AmericaZykis [place] [id number] Information: SRC:NADINE [id number] DRAW N@10:05AM Bacteria identified Cx Nom (Bld) NGFD Normal [facility] Work Phone: Comment on above: No aerobic or anaero bic growth in five days. PATIENT NOT FASTINGP ERFORMED BY: MIRIAM [facility] Xmzdnk9365 [facility] America[place]yk[place] [id number] Information: SRC:NADINE [id number] DRAW N@10:05AM CBC with manual diff ([id number]) Ordered By: Utilization Management Manager on 02-15-2013 Basophils #/vol (Bld) 0.1 {x10E3/uL} Normal 0.0-0.2 [facility] Work Phone: Comment on above: PATIENT NOT FASTINGP ERFORMED BY: MIRIAM [facility] Xjsxtt8044 [facility] AmericaZykis [place] [id number] Information: Q63078,2ND ORDER NO DRAW F EE Basophils (Bld) [#/Vol] 0.1 10*3/uL Normal 0.0-0.2 [facility]; [facility] Work Phone: Basophils/100 WBC (Bld) 1 % Normal 0-3 [facility] Work Phone: Comment on above: PATIENT NOT FASTINGP ERFORMED BY: MIRIAM Treviñolin6370 [facility] [id number] Information: [id number],2ND ORDER NO DRAW F EE Eosinophils #/vol (Bld) 0.1 {x10E3/uL} Normal 0.0-0.4 [facility] Work Phone: Comment on above: Please note refere nce interval change PATIENT NOT FASTINGP ERFORMED BY: MIRIAM Treviñolin6370 [facility] [id number] Information: J60196,2ND ORDER NO DRAW F EE Eosinophils (Bld) [#/Vol] 0.1 10*3/uL Normal 0.0-0.4 [facility]; [facility] Work Phone: Eosinophils/100 WBC (Bld) 1 % Normal 0-5 [facility] Work Phone: Comment on above: Please note refere nce interval change PATIENT NOT FASTINGP ERFORMED BY: MIRIAM Treviñolin6370 [facility] [id number] Information: B92192,2ND ORDER NO DRAW F EE Erythrocyte distribution width Ratio (RBC) 14.1 % Normal 12.3-15.4 [facility] Work Phone: Comment on above: PATIENT NOT FASTINGP ERFORMED BY: MIRIAM LabCo Nuepll5029 [facility] [id number] Information: O19799,2ND ORDER NO DRAW F EE Hematocrit Volume Fraction (Bld) 46.1 % Normal 37.5-51.0 [facility] Work Phone: Comment on above: PATIENT NOT FASTINGP ERFORMED BY: MIRIAM LabCoClaudia Ville [id number] [facility] [id number] Information: F29196,2ND ORDER NO DRAW F EE Hemoglobin mass conc (Bld) 15.8 g/dL Normal 12.6-17.7 [facility] Work Phone: Comment on above: PATIENT NOT FASTINGP ERFORMED BY: MIRIAM Price [facility] [id number] Information: S84556,2ND ORDER NO DRAW F EE Immature granulocytes #/vol (Bld) 0.0 {x10E3/uL} Normal 0.0-0.1 [facility] Work Phone: Comment on above: PATIENT NOT FASTINGP ERFORMED BY: MIRIAM Man Treviñolin6370 [facility] [id number] Information: J02403,2ND ORDER NO DRAW F EE Immature granulocytes (Bld) [#/Vol] 0.0 10*3/uL Normal 0.0-0.1 [facility]; [facility] Work Phone: Immature granulocytes/100 WBC (Bld) 0 % Normal 0-2 [facility] Work Phone: Comment on above: PATIENT NOT FASTINGP ERFORMED BY: MIRIAM Man [address]ño[address] [id number] Information: H48359,2ND ORDER NO DRAW F EE Lymphocytes #/vol (Bld) 2.5 {x10E3/uL} Normal 0.7-3.1 [facility] Work Phone: Comment on above: Please note refere nce interval change PATIENT NOT FASTINGP ERFORMED BY: MIRIAM FieldsTimothy Ville [id number] [facility] [id number] Information: L21549,2ND ORDER NO DRAW F EE Lymphocytes (Bld) [#/Vol] 2.5 10*3/uL Normal 0.7-3.1 [facility]; [facility] Work Phone: Lymphocytes/100 WBC (Bld) 29 % Normal 14-46 [facility] Work Phone: Comment on above: Please note refere nce interval change PATIENT NOT FASTINGP ERFORMED BY: MIRIAM LabCoLourdes Medical Center of Burlington CountySovguk5912 [facility] [id number] Information: X99075,2ND ORDER NO DRAW F EE MCH Entitic mass (RBC) 32.1 pg Normal 26.6-33.[address] [facility] Internal Medicine Work Phone: Comment on above: PATIENT NOT FASTINGP ERFORMED BY: MIRIAM LabCoClaudia Ville [id number] [facility] [id number] Information: G47118,2ND ORDER NO DRAW F EE MCHC mass conc (RBC) 34.3 g/dL Normal 31.5-35.7 [facility] Internal Medicine Work Phone: Comment on above: PATIENT NOT FASTINGP ERFORMED BY: MIRIAM LabCo Obuqgr0799 [facility] [id number] Information: Q72340,2ND ORDER NO DRAW F EE MCV Entitic volume (RBC) 94 fL Normal 79-[address] [facility] Internal Medicine Work Phone: Comment on above: PATIENT NOT FASTINGP ERFORMED BY: [place] [id number] [facility] [id number] Information: T53084,2ND ORDER NO DRAW F EE Monocytes #/vol (Bld) 0.6 {x10E3/uL} Normal 0.1-0.[address] [facility] Internal Medicine Work Phone: Comment on above: Please note refere nce interval change PATIENT NOT FASTINGP ERFORMED BY: LabCoClaudia [place]ille 2518070 [facility] [id number] Information: Z31233,2ND ORDER NO DRAW F EE Monocytes (Bld) [#/Vol] 0.6 10*3/uL Normal 0.1-0.9 [facility]; [facility] Work Phone: Monocytes/100 WBC (Bld) 8 % Normal 4-12 [facility] Work Phone: Comment on above: Please note refere nce interval change PATIENT NOT FASTINGP ERFORMED BY: MIRIAM Mujica Fyshln2498 [facility] [id number] Information: S01118,2ND ORDER NO DRAW F EE Neutrophils #/vol (Bld) 5.2 {x10E3/uL} Normal 1.4-7.[address] [facility] Internal Medicine Work Phone: Comment on above: Please note refere nce interval change PATIENT NOT FASTINGP ERFORMED BY: MIRIAM Mujica Faqaro3416 [facility] [id number] Information: P99312,2ND ORDER NO DRAW F EE Neutrophils (Bld) [#/Vol] 5.2 10*3/uL Normal 1.4-7.0 [facility]; [facility] Work Phone: Neutrophils/100 WBC (Bld) 61 % Normal 40-74 [facility] Work Phone: Comment on above: Please note refere nce interval change PATIENT NOT FASTINGP ERFORMED BY: MIRIAM DiamondThe [facility] Institute [facility] Zqivnm5655 [facility] [id number] Information: G49762,2ND ORDER NO DRAW F EE Platelets #/vol (Bld) 178 {x10E3/uL} Normal 155-[address] [facility] Internal Medicine Work Phone: Comment on above: Please note refere nce interval change PATIENT NOT FASTINGP ERFORMED BY: [place] [id number] [facility] [id number] Information: Q94711,2ND ORDER NO DRAW F EE Platelets (Bld) [#/Vol] 178 10*3/uL Normal 155-379 [facility]; [facility] Internal Medicine Work Phone: RBC #/vol (Bld) 4.92 {x10E6/uL} Normal 4.14-5.80 [facility] Internal Medicine Work Phone: Comment on above: PATIENT NOT FASTINGP ERFORMED BY: [place] [id number] [facility] [id number] Information: [id number],2ND ORDER NO DRAW F EE RBC (Bld) [#/Vol] 4.92 10*6/uL Normal 4.14-5.80 [facility]; [facility] Work Phone: WBC #/vol (Bld) 8.4 {x10E3/uL} Normal 3.4-10.8 [facility] Internal Medicine Work Phone: Comment on above: Please note refere nce interval change PATIENT NOT FASTINGP ERFORMED BY: CB [facility] Ecwxvk2806 [address] RoadDublin [place] [id number] Information: [id number],2ND ORDER NO DRAW F EE WBC (Bld) [#/Vol] 8.4 10*3/uL Normal 3.4-10.8 [facility] Internal Medicine; [facility] Internal Medicine Work Phone: URINALYSIS ([phone])Ordered By : Utilization Management Manager on 02-15-2013 Appearance Nom (U) Clear Normal Compre [facility] Internal Medicine Work Phone: Comment on above: PATIENT NOT FASTINGP ERFORMED BY: CB [facility] Ofaazo5954 [address]Dublin [place] [id number] Bilirubin Ql (U) Negative Normal Comprehe nsive Internal Medicine Work Phone: Comment on above: PATIENT NOT FASTINGP ERFORMED BY: CB [facility] Dvdxrp2747 [address] RoadDublin [place] [id number] Bilirubin Ql (U) Negative Normal Comprehe nsive Internal Medicine; [facility] Work Phone: Color Nom (U) Yellow Normal Comprehensi ve Internal Medicine Work Phone: Comment on above: PATIENT NOT FASTINGP ERFORMED BY: CB [facility] Hojymg8475 [address] RoadDublin [place] [id number] Glucose Ql (U) Negative Normal Comprehens randal Internal Medicine Work Phone: Comment on above: PATIENT NOT FASTINGP ERFORMED BY: CB [facility] Qekbzg3920 [address] RoadDublin [place] [id number] Glucose Ql (U) Negative Normal Comprehens randal [facility]; [facility] Work Phone: Hemoglobin Ql (U) Negative Normal Compreh ensive Internal Medicine Work Phone: Comment on above: PATIENT NOT FASTINGP ERFORMED BY: MIRIAM [facility] Vuzhct7779 [address] RoadDublin [place] [id number] Hemoglobin Ql (U) Negative Normal Compreh ensive [facility]; [facility] Work Phone: Ketones Ql (U) Negative Normal Comprehens randal [facility] Medicine Work Phone: Comment on above: PATIENT NOT FASTINGP ERFORMED BY: MIRIAM [facility] Dsazjt7977 [address] RoadDublin [place] [id number] Ketones Ql (U) Negative Normal Comprehens randal [facility]; [facility] Work Phone: Leukocyte esterase Test strip Ql (U) Negative Normal [facility] Work Phone: Comment on above: PATIENT NOT FASTINGP ERFORMED BY: MIRIAM [facility] Dbzxcy1707 [address] RoadDublin [place] [id number] Leukocyte esterase Test strip Ql (U) Negative Normal [facility]; [facility] Work Phone: Microscopic observation LM Nom (Urine sed) MICRON Normal [facility] Work Phone: Comment on above: Microscopic follows if indicated. PATIENT NOT FASTINGP ERFORMED BY: MIRIAM [facility] Whfxvl3674 [address]ta RoadDublin [place] [id number] Nitrite Ql (U) Negative Normal Comprehens randal [facility] Work Phone: Comment on above: PATIENT NOT FASTINGP ERFORMED BY: CB [facility] Ufmnra3268 [address]Dublin [place] [id number] Nitrite Ql (U) Negative Normal Comprehens randal [facility]; [facility] Work Phone: pH (U) 7.0 [pH] Normal 5.0-7.5 [facility] Work Phone: Comment on above: PATIENT NOT FASTINGP ERFORMED BY: MIRIAM [facility] Uxftbu2704 [address]Dublin [place] [id number] Protein Ql (U) Negative Normal Comprehens randal [facility] Medicine Work Phone: Comment on above: PATIENT NOT FASTINGP ERFORMED BY: MIRIAM [facility] Svdocb4328 [address] VivartesCentral Carolina Hospital [id number] Protein Ql (U) Negative Normal Comprehens randal [facility]; [facility] Work Phone: Specific gravity Relative Density (U) 1.012 1 Normal 1.005-1.03 0 [facility] Work Phone: Comment on above: PATIENT NOT FASTINGP ERFORMED BY: MIRIAM LabI Read Books Abwwfh7569 [address] SilverStorm TechnologiesNovant Health Clemmons Medical Center [id number] Urobilinogen (U) [Mass/Vol] 0.2 mg/dL Normal 0.0-1.9 [facility]; [facility] Work Phone: Urobilinogen Test strip mass conc (U) 0.2 mg/dL Normal 0.0-1.9 Comprehensiv e [facility] Medicine Work Phone: Comment on above: PATIENT NOT FASTINGP ERFORMED BY: MIRIAM LabI Read Books Yqbpnl7454 [facility] Medical CenterDrEd Online DoctorNovant Health Clemmons Medical Center [id number] Blood Glucose , Office ([phone])Ordered By: PANFILO Broussard on 01-14-2013 Glucose Glucometer molar conc (BldC) 134 1 Normal [facility] Work Phone: CBC WITH MANUAL DIFF ([id number]) Ordered By: Utilization Management Manager on 01-14-2013 Basophils #/vol (Bld) 0.1 {x10E3/uL} Normal 0.0-0.2 [facility] Work Phone: Comment on above: PATIENT NOT FASTINGP ERFORMED BY: LabCo Hmfzam8066 [facility] [id number] Information: [id number],I29836 Basophils (Bld) [#/Vol] 0.1 10*3/uL Normal 0.0-0.2 [facility]; [facility] Work Phone: Basophils/100 WBC (Bld) 1 % Normal 0-3 [facility] Work Phone: Comment on above: PATIENT NOT FASTINGP ERFORMED BY: [facility]6370 [facility] [id number] Information: [id number],[id number] Eosinophils #/vol (Bld) 0.1 {x10E3/uL} Normal 0.0-0.4 [facility] Work Phone: Comment on above: PATIENT NOT FASTINGP ERFORMED BY: [address] [id number] Information: [id number] Eosinophils (Bld) [#/Vol] 0.1 10*3/uL Normal 0.0-0.4 [facility]; [facility] Work Phone: Eosinophils/100 WBC (Bld) 1 % Normal 0-7 [facility] Work Phone: Comment on above: PATIENT NOT FASTINGP ERFORMED BY: [address] [id number] Information: [id number],Y00290 Erythrocyte distribution width Ratio (RBC) 13.8 % Normal 12.3-15.4 [facility] Work Phone: Comment on above: PATIENT NOT FASTINGP ERFORMED BY: [address] [id number] Information: 603029,[id number] Hematocrit Volume Fraction (Bld) 48.5 % Normal 37.5-51.0 [facility] Work Phone: Comment on above: PATIENT NOT FASTINGP ERFORMED BY: [address] [id number] Information: [id number],[id number] Hemoglobin mass conc (Bld) 16.7 g/dL Normal 12.6-17.7 [facility] Work Phone: Comment on above: PATIENT NOT FASTINGP ERFORMED BY: [place] 8925370 [facility] [id number] Information: [id number],S90136 Immature granulocytes #/vol (Bld) 0.0 {x10E3/uL} Normal 0.0-0.1 [facility] Work Phone: Comment on above: PATIENT NOT FASTINGP ERFORMED BY: MIRIAM Mujica Fdbhsm2920 [facility] [id number] Information: [id number],[id number] Immature granulocytes (Bld) [#/Vol] 0.0 10*3/uL Normal 0.0-0.1 [facility]; [facility] Work Phone: Immature granulocytes/100 WBC (Bld) 0 % Normal 0-2 [facility] Work Phone: Comment on above: PATIENT NOT FASTINGP ERFORMED BY: [address] [id number] Information: [id number] Lymphocytes #/vol (Bld) 2.0 {x10E3/uL} Normal 0.7-4.5 [facility] Work Phone: Comment on above: PATIENT NOT FASTINGP ERFORMED BY: [facility]6370 [facility] [id number] Information: [id number],W20819 Lymphocytes (Bld) [#/Vol] 2.0 10*3/uL Normal 0.7-4.5 [facility]; [facility] Work Phone: Lymphocytes/100 WBC (Bld) 20 % Normal 14-46 [facility] Work Phone: Comment on above: PATIENT NOT FASTINGP ERFORMED BY: [place] 8925370 [facility] [id number] Information: 796660,Y11024 MCH Entitic mass (RBC) 32.5 pg Normal 26.6-33.0 [facility] Work Phone: Comment on above: PATIENT NOT FASTINGP ERFORMED BY: [address] [id number] Information: [id number],[id number] MCHC mass conc (RBC) 34.4 g/dL Normal 31.5-35.7 Comp rehensive Internal Medicine Work Phone: Comment on above: PATIENT NOT FASTINGP ERFORMED BY: MIRIAM Priec [facility] [id number] Information: [id number] MCV Entitic volume (RBC) 94 fL Normal 79-97 [facility] Work Phone: Comment on above: PATIENT NOT FASTINGP ERFORMED BY: MIRIAM Mujica Lsol[address] [id number] Information: [id number],[id number] Monocytes #/vol (Bld) 1.0 {x10E3/uL} Normal 0.1-1.0 [facility] Work Phone: Comment on above: PATIENT NOT FASTINGP ERFORMED BY: MIRIAM Treviñolin6370 [facility] [id number] Information: 388651,[id number] Monocytes (Bld) [#/Vol] 1.0 10*3/uL Normal 0.1-1.0 [facility]; [facility] Work Phone: Monocytes/100 WBC (Bld) 10 % Normal 4-13 [facility] Work Phone: Comment on above: PATIENT NOT FASTINGP ERFORMED BY: MIRIAM Treviñolin6370 [facility] [id number] Information: [id number] Neutrophils #/vol (Bld) 6.5 {x10E3/uL} Normal 1.8-7.8 [facility] Work Phone: Comment on above: PATIENT NOT FASTINGP ERFORMED BY: MIRIAM [place] 1514170 [facility] [id number] Information: [id number],[id number] Neutrophils (Bld) [#/Vol] 6.5 10*3/uL Normal 1.8-7.8 [facility]; [facility] Work Phone: Neutrophils/100 WBC (Bld) 68 % Normal 40-74 [facility] Work Phone: Comment on above: PATIENT NOT FASTINGP ERFORMED BY: LabCoLourdes Medical Center of Burlington CountyAdkpxt0527 [facility] [id number] Information: [id number] Platelets #/vol (Bld) 191 {x10E3/uL} Normal 140-415 [facility] Work Phone: Comment on above: PATIENT NOT FASTINGP ERFORMED BY: LabCoLourdes Medical Center of Burlington CountyKsvzme3377 [facility] [id number] Information: [id number] Platelets (Bld) [#/Vol] 191 10*3/uL Normal 140-415 [facility]; [facility] Work Phone: RBC #/vol (Bld) 5.14 {x10E6/uL} Normal 4.14-5.80 Comp [facility] trumbullensive [facility] Work Phone: Comment on above: PATIENT NOT FASTINGP ERFORMED BY: [place] 8925370 [facility] [id number] Information: [id number],[id number] RBC (Bld) [#/Vol] 5.14 10*6/uL Normal 4.14-5.80 Compr ensive Internal Medicine; [facility] Work Phone: WBC #/vol (Bld) 9.7 {x10E3/uL} Normal 4.0-10.5 Compr ensive [facility] Medicine Work Phone: Comment on above: PATIENT NOT FASTINGP ERFORMED BY: [facility]6370 [facility] [id number] Information: [id number] WBC (Bld) [#/Vol] 9.7 10*3/uL Normal 4.0-10.5 Compre [facility]; [facility] Work Phone: HgA1C , Office ([phone])Ordere d By: Delfina Boyd on 01-14-2013 Hemoglobin A1c/Hemoglobin.total mass fraction (Bld) 5.8 % Normal 4.6 - 7.1 Comprehensiv e Internal Medicine Work Phone: METABOLIC PANEL, COMPREHENSI VE (40434)Ordered By: Utilization Management Manager on 01-14-2013 Albumin mass conc 4.5 g/dL Normal 3.5-5.5 Compreh [facility] Internal Medicine Work Phone: Comment on above: PATIENT NOT FASTINGP ERFORMED BY: CB [facility] Dfoljz7420 [address] RoadDublin [place] [id number] Albumin/Globulin mass ratio 1.8 {ratio} Normal 1.1-2.5 [facility] Work Phone: Comment on above: PATIENT NOT FASTINGP ERFORMED BY: CB [facility] Lirmrw2099 [address] RoadDublin [place] [id number] ALP [Catalytic activity/Vol] 110 U/L Abnormal 44-102 [facility]; [facility] Work Phone: ALP enzyme act/vol 110 [iU]/L Abnormal 44-102 [facility] Internal Medicine Work Phone: Comment on above: PATIENT NOT FASTINGP ERFORMED BY: CB [facility] Mqcezi1293 [address] RoadDublin [place] [id number] ALT [Catalytic activity/Vol] 24 U/L Normal 0-44 [facility]; [facility] Work Phone: ALT enzyme act/vol 24 [iU]/L Normal 0-44 [facility] Internal Medicine Work Phone: Comment on above: PATIENT NOT FASTINGP ERFORMED BY: CB [facility] Eojmjw5890 [address] RoadDublin [place] [id number] AST [Catalytic activity/Vol] 22 U/L Normal 0-40 [facility]; [facility] Work Phone: AST enzyme act/vol 22 [iU]/L Normal 0-40 [facility] Internal Medicine Work Phone: Comment on above: PATIENT NOT FASTINGP ERFORMED BY: CB [facility] Ernkbp1715 [address] RoadDublin [place] [id number] Bilirubin mass conc 0.5 mg/dL Normal 0.0-1.2 Compr [facility] Internal Medicine Work Phone: Comment on above: PATIENT NOT FASTINGP ERFORMED BY: CB [facility] Ksistu2274 [address] RoadDublin [place] [id number] Calcium mass conc 9.5 mg/dL Normal 8.7-10.2 Compreh ensive Internal Medicine Work Phone: Comment on above: PATIENT NOT FASTINGP ERFORMED BY: CB [facility] Suhcop3806 [address]Dublin [place] [id number] Chloride molar conc 101 mmol/L Normal 97-108 Compr ehensive Internal Medicine Work Phone: Comment on above: PATIENT NOT FASTINGP ERFORMED BY: CB [facility] Tbcdys1967 [address]Dublin [place] [id number] CO2 molar conc 24 mmol/L Normal 19-28 Comprehens randal Internal Medicine Work Phone: Comment on above: PATIENT NOT FASTINGP ERFORMED BY: CB [facility] Plavek4091 [address] RoadDublin [place] [id number] Creatinine mass conc 1.01 mg/dL Normal 0.76-1.27 Comp rehensive Internal Medicine Work Phone: Comment on above: PATIENT NOT FASTINGP ERFORMED BY: CB [facility] Xliige9764 [address] Roadblin [place] [id number] GFR/1.73 sq M predicted among blacks CKD-EPI vol rate/area (S/P/Bld) 97 mL/min/1.73 Normal Comprehensiv e Internal Medicine Work Phone: Comment on above: PATIENT NOT FASTINGP ERFORMED BY: CB [facility] Dqlctr4418 [address] RoadDublin [place] [id number] GFR/1.73 sq M predicted among non-blacks CKD-EPI vol rate/area (S/P/Bld) 84 mL/min/1.73 Normal [facility] Work Phone: Comment on above: PATIENT NOT FASTINGP ERFORMED BY: CB [facility] Rgmcfm4743 [address] RoadDublin [place] [id number] Globulin mass conc (S) 2.5 g/dL Normal 1.5-4.5 [facility] Work Phone: Comment on above: PATIENT NOT FASTINGP ERFORMED BY: MIRIAM [facility] Lfxlrt8364 [address] RoadDublin [place] [id number] Glucose mass conc 103 mg/dL Abnormal 65-99 Compreh ensive Internal Medicine Work Phone: Comment on above: PATIENT NOT FASTINGP ERFORMED BY: MIRIAM [facility] Qygjfm2370 [address] RoadDublin [place] [id number] Potassium molar conc 4.1 mmol/L Normal 3.5-5.2 Comp rehensive Internal Medicine Work Phone: Comment on above: PATIENT NOT FASTINGP ERFORMED BY: CB [facility] Voapzp3573 [address]Dublin [place] [id number] Protein mass conc 7.0 g/dL Normal 6.0-8.5 Compreh ensive Internal Medicine Work Phone: Comment on above: PATIENT NOT FASTINGP ERFORMED BY: MIRIAM [facility] Iusdrj5108 [address]Dublin [place] [id number] Sodium molar conc 138 mmol/L Normal 134-144 Compreh ensive Internal Medicine Work Phone: Comment on above: PATIENT NOT FASTINGP ERFORMED BY: MIRIAM [facility] Jqfvbf0993 [address]blin [place] [id number] Urea nitrogen mass conc 16 mg/dL Normal 6-24 [facility] Work Phone: Comment on above: PATIENT NOT FASTINGP ERFORMED BY: MIRIAM [facility] Mjmmme7168 [address]Dublin [place] [id number] Urea nitrogen/Creatinine mass ratio 16 mg/mg Normal 9-20 [facility] Work Phone: Comment on above: PATIENT NOT FASTINGP ERFORMED BY: CB [facility] Elxsao4438 [address] RoadDublin [place] [id number] PT (Prothrobim Time) (74560) Ordered By: Utilization Management Manager on 01-14-2013 INR Coag RelTime (PPP) 1.0 {INR} Normal 0.8-1.2 [facility] Work Phone: Comment on above: Reference interval i s for non-anticoagulated patients. . Suggested INR therapeutic range for Vitamin K antagonist therapy: Standard Dose (moderate intensity therapeutic range): 2.0 - 3.0 Higher intensity therapeutic range 2.5 - 3.5 PATIENT NOT FASTINGP ERFORMED BY: MIRIAM CorensicHenry Ford Cottage Hospital6370 [facility] [id number] Prothrombin time (PT) Coag time (PPP) 10.6 {sec} Normal 9.1-12.0 [facility] Work Phone: Comment on above: PATIENT NOT FASTINGP ERFORMED BY: CorensicHenry Ford Cottage Hospital6370 [facility] [id number] PT Coag (PPP) [Time] 10.6 s Normal 9.1-12.0 Comp rehensive [facility]; [facility] Work Phone: PTT (Activated Partial Throm boplastin Time) ([id number])Ordered By: Utilization Management Manager on 01-14-2013 aPTT Coag (PPP) [Time] 29 s Normal 24-33 [facility]; [facility] Work Phone: aPTT Coag time (PPP) 29 {sec} Normal 24-33 Comp rehensive Internal Medicine Work Phone: Comment on above: This test has not be en validated for monitoring unfractionated heparintherapy. aPTT-based therapeutic ranges for unfractionated heparintherapy have not been established. For general guidelines onHeparin monitoring, refer to the Ink361 Directory of Services. PATIENT NOT FASTINGP ERFORMED BY: MIRIAM Ink361[facility] Burlington CountyElkles7771 [facility] [id number] CBC With Differential/Platel etOrdered By: Utilization Management Manager on 11-15-2012 Basophils #/vol (Bld) 0.0 {x10E3/uL} Normal 0.0-0.2 [facility] Work Phone: Comment on above: A courtesy copy of t his report has been sent [phone].PERFORMED BY: MIRIAM Ink361[facility] Burlington CountyIuvnjw3881 [facility] [id number] BY: GERALD CorensicThe [facility] ADL0553 [facility] [id number] BY: TRAVIS LabCo[address] [id number] Information: CC:[id number] Basophils/100 WBC (Bld) 0 % Normal 0-3 [facility] Work Phone: Comment on above: A courtesy copy of t his report has been sent [phone].PERFORMED BY: Newport MediaNovant Health Clemmons [facility] Center [id number] BY: [employer] [address] [id number] BY: Ink[address] [id number] Information: CC:[id number] Eosinophils #/vol (Bld) 0.1 {x10E3/uL} Normal 0.0-0.4 [facility] Work Phone: Comment on above: A courtesy copy of t his report has been sent [phone].PERFORMED BY: irisnote70 Carev[facility] Medical North AmericaNovant Health Clemmons [facility] Center [id number] BY: eziCONEX[address] [place] [employer] [facility] [id number] BY: Ink[address] [id number] Information: [id number] Eosinophils/100 WBC (Bld) 1 % Normal 0-7 [facility] Work Phone: Comment on above: A courtesy copy of t his report has been sent [phone].PERFORMED BY: irisnote70 [facility] North AmericaNovant Health Cle[facility] [id number] BY: eziCONEX[address] [id number] BY: [facility] Joseph Health CenterI Read Books[address] [id number] Information: CC:[id number] Erythrocyte distribution width Ratio (RBC) 13.6 % Normal 12.3-15.4 [facility] Work Phone: Comment on above: A courtesy copy of t his report has been sent [phone].PERFORMED BY: MIRIAM [employer] Xkbgni3157 [place] SilverStorm TechnologiesNovant Health Clemmons Medical Center [id number] BY: DUARTE Ink[address] [id number] BY: [address] [id number] Information: [id number] Hematocrit Volume Fraction (Bld) 49.4 % Normal 37.5-51.0 [facility] Work Phone: Comment on above: A courtesy copy of t his report has been sent [phone].PERFORMED BY: MIRIAM [employer] Eukhby9454 [facility] [id number] BY: Ink[address] [id number] BY: Ink[address] [id number] Information: CC:[id number] Hemoglobin mass conc (Bld) 17.0 g/dL Normal 12.6-17.7 [facility] Work Phone: Comment on above: A courtesy copy of t his report has been sent [phone].PERFORMED BY: MIRIAM [employer] Xtxckm2766 [place] SilverStorm TechnologiesNovant Health Clemmons Medical Center [id number] BY: GERALD Ink[address] [id number] BY: [address] [id number] Information: CC:[id number] Immature granulocytes #/vol (Bld) 0.0 {x10E3/uL} Normal 0.0-0.1 [facility] Work Phone: Comment on above: A courtesy copy of t his report has been sent [phone].PERFORMED BY: MIRIAM ModaMi70 [facility] [id number] BY: [employer] OVH5907 [facility] [id number] BY: [address] [id number] Information: CC:[id number] Immature granulocytes/100 WBC (Bld) 0 % Normal 0-2 [facility] Work Phone: Comment on above: A courtesy copy of t his report has been sent [phone].PERFORMED BY: MIRIAM [employer] Yyexzs3766 Carev[facility] Medical North AmericaNovant Health Cle[facility] [id number] BY: [employer] [address] [id number] BY: [address] [id number] Information: CC:[id number] Lymphocytes #/vol (Bld) 2.3 {x10E3/uL} Normal 0.7-4.5 [facility] Work Phone: Comment on above: A courtesy copy of t his report has been sent [phone].PERFORMED BY: MIRIAM [employer] Oeejag3989 Carev[facility] Medical North AmericaNovant Health Cle[facility] Center [id number] BY: studdex[address] [id number] BY: [address] [id number] Information: CC:[id number] Lymphocytes/100 WBC (Bld) 23 % Normal 14-46 [facility] Work Phone: Comment on above: A courtesy copy of t his report has been sent [phone].PERFORMED BY: MIRIAM [employer]6370 charming charlieCentral Carolina Hospital [id number] BY: studdex[address] [id number] BY: [address] [id number] Information: CC:[id number] MCH Entitic mass (RBC) 32.6 pg Normal 26.6-33.0 [facility] Work Phone: Comment on above: A courtesy copy of t his report has been sent [phone].PERFORMED BY: MIRIAM Ink361petr TreviñoMsbtai8351 [facility] [id number] BY: DUARTE Ink361[place] 986424 [facility] [id number] BY: [address] [id number] Information: CC:[id number] MCHC mass conc (RBC) 34.4 g/dL Normal 31.5-35.7 [facility] Internal Medicine Work Phone: Comment on above: A courtesy copy of t his report has been sent [phone].PERFORMED BY: MIRIAM ModaMi[address] [place], [place] [address]DrEd Online DoctorNovant Health Clemmons Medical Center [id number] BY: DUARTE Ink[address] [id number] BY: [address] [id number] Information: CC:[id number] MCV Entitic volume (RBC) 95 fL Normal 79-97 [facility] Work Phone: Comment on above: A courtesy copy of t his report has been sent [phone].PERFORMED BY: MIRIAM Ink361 Djqnrq8951 [facility] [id number] BY: Wilson Memorial HospitalI Read BooksJoshua Ville [address] [place] [address] [id number] BY: [address] [id number] Information: CC:[id number] Monocytes #/vol (Bld) 1.2 {x10E3/uL} Abnormal 0.1-1.0 [facility] Work Phone: Comment on above: A courtesy copy of t his report has been sent [phone].PERFORMED BY: MIRIAM Klein6370 [facility] North AmericaNovant Health [facility] [id number] BY: DUARTE CorensicCoGregory Ville 986424 [facility] [id number] BY: [address] [id number] Information: CC:[id number] Monocytes/100 WBC (Bld) 12 % Normal 4-13 [facility] Work Phone: Comment on above: A courtesy copy of t his report has been sent [phone].PERFORMED BY: MIRIAM Klein6370 Freedu.inJennie Stuart Medical Center [id number] BY: DUARTE CorensicCo[address] [id number] BY: [address] [id number] Information: CC:[id number] Neutrophils #/vol (Bld) 6.4 {x10E3/uL} Normal 1.8-7.8 [facility] Work Phone: Comment on above: A courtesy copy of t his report has been sent [phone].PERFORMED BY: MIRIAM Price [place] SilverStorm TechnologiesNovant Health Clemmons Medical Center [id number] BY: DUARTE DiamondCopetr WIG6981 [facility] [id number] BY: Lab[address] [id number] Information: CC:[id number] Neutrophils/100 WBC (Bld) 64 % Normal 40-74 [facility] Work Phone: Comment on above: A courtesy copy of t his report has been sent [phone].PERFORMED BY: MIRIAM Klein6370 PeraltaHemophilia Resources of AmericaNovant Health Clemmons Medical Center [id number] BY: studdexGregory V[place] 986424 [facility] [id number] BY: [address] [id number] Information: CC:[id number] Platelets #/vol (Bld) 206 {x10E3/uL} Normal 140-415 [facility] Work Phone: Comment on above: A courtesy copy of t his report has been sent [phone].PERFORMED BY: Newport MediaNovant Health Clemmons Medical Center [id number] BY: [employer] [address] [id number] BY: [address] [id number] Information: CC:[id number] RBC #/vol (Bld) 5.22 {x10E6/uL} Normal 4.14-5.80 Comp [facility]ullensive [facility] Work Phone: Comment on above: A courtesy copy of t his report has been sent [phone].PERFORMED BY: irisnote70 [facility] Medical North AmericaNovant Health [facility] [id number] BY: eziCONEXP1904 [facility] [id number] BY: Ink[address] [id number] Information: CC:[id number] WBC #/vol (Bld) 10.1 {x10E3/uL} Normal 4.0-10.5 Comp [facility] Work Phone: Comment on above: A courtesy copy of t his report has been sent [phone].PERFORMED BY: irisnote70 [facility] North AmericaNov[facility] [id number] BY: [employer] [address] [id number] BY: [address] [id number] Information: CC:[id number] Carbon Monoxide, BloodOrdere d By: Utilization Management Manager on 11-15-2012 Carboxyhemoglobin/Hem oglobin.total mass fraction (Bld) 4.4 % Abnormal 0.0-1.9 [facility] Work Phone: Comment on above: Environmental Exposu re: Nonsmokers <2.0 Smokers <9.0 Occupational Exposure: JOANA 3.5 . Detection Limit = 0.2 A courtesy copy of t his report has been sent [phone].PERFORMED BY: Duck Duck MooseJennie Stuart Medical Center [id number] BY: [employer] [id number] [facility] [id number] BY: [employer] [address] [id number] Erythropoietin (EPO), SerumO rdered By: Utilization Management Manager on 11-15-2012 Erythropoietin (EPO) Qn [IU]/L Abnormal 4.2-27.[address] [facility] Internal Medicine Work Phone: Comment on above: A courtesy copy of t his report has been sent [phone].PERFORMED BY: Briggo6370 [facility] North AmericaNovant [facility] [id number] BY: [employer] [facility] [id number] BY: Yabbly[address] [id number] JAK2 Mutation Analysis, Qual Ordered By: Utilization Management Manager on 11-15-2012 JAK2 gene p.Gvn051Lsh Molgen Ql (Bld/Tiss) JAK2N Normal Comprehensi Internal Medicine Work Phone: Comment on above: Result: NEGATIVE for the JAK2 V617F mutation. .Interpretation: The G to T nucleotide change encoding the F824Myjbkfjuy was not detected. This result does not rule out the presenceof the JAK2 mutation at a level below the sensitivity of detection ofthis assay, or the presence of other mutations within JAK2 notdetected by this assay. This result does not rule out a diagnosis ofpolycythemia vera, essential thrombocythemia or idiopathicmyelofibrosis as the V617F mutation is not detected in all patientswith these disorders. .Lisa Rodriguez M.D., Ph.D., [facility] Asset Administrator, Molecular Genetics LabThe [facility] Institute Of [facility] Pathology [place], [place] .JAK2 is a cytoplasmic tyrosine kinase with a ward role in signaltransduction from multiple hematopoietic growth factor receptors. Apoint mutation within exon 14 of the JAK2 gene (I5162U) encoding avaline to phenylalanine substitution at position 617 of the NFH1okqpfxn (V617F) has been identified in most patients with polycythemiavera, and in about half of those with either essential thrombocythemiaor idiopathic myelofibrosis. The V617F has also been detected,although infrequently, in other myeloid disorders such as chronicmyelomonocytic leukemia and chronic neutrophilic leukemia. V617F isan acquired mutation that alters a highly conserved valine present inthe negative regulatory JH2 domain of the JAK2 protein and ispredicted to dysregulate kinase activity. .Methodology:Genomic DNA was purified from the provided specimen. Allele-specificPCR using fluorescent primers was used to simultaneously amplify boththe wild type and mutant alleles. Amplification products were analyzedby capillary electrophoresis. This assay has a sensitivity to detectapproximately a 5% population of cells containing the V617F mutationin a background of non-mutant cells. .Reference:Libra A and Chanell COATES. The JAK2 V617F Tyrosine Kinase Mutationin Myeloproliferative Disorders: Status Report and ImmediateImplications for Disease Classification and Diagnosis. [facility] Qomb1591;80(7):947-958. . A courtesy copy of t his report has been sent [phone].PERFORMED BY: MIRIAM [employer]6370 PeraltaHemophilia Resources of AmericaNovant Health Clemm[facility] Center [id number] BY: DUARTE [facility] FFX0089 [facility] [id number] BY: CorensicChildren'S Mercy Hospital1447 [facility] [id number] LDHOrdered By: System Manage r on 11-15-2012 LDH enzyme act/vol 152 [iU]/L Normal 0-225 [facility] Internal Medicine Work Phone: Comment on above: A courtesy copy of t his report has been sent [phone].PERFORMED BY: [employer]6370 Charan [facility] [id number] BY: GERALD [facility] FGY1869 [facility] [id number] BY: TRAVIS [facility] Sneizfwged0640 [facility] [id number] SPINE LUMBAR (ROUTINE)Ordere d By: Utilization Management Manager on 11-03-2012 SPINE LUMBAR (ROUTINE) See Note Normal [facility] Work Phone: Comment on above: PROCEDURE: MRI LUMBA R SPINE WITHOUT CONTRAST REASON FOR EXAM: Male, 51 years old. Chronic low back pain andbilateralhip and leg pain. TECHNIQUE: Standardized fat and water weighted pulse sequences wereobtained in the sagittal and axial planes. COMPARISON: MRI lumbar spine -- 07/11/05 and plain films lumbar spine --12/27/07. FINDINGS: T10-11: Limited sagittal imaging only. Slight disc desiccation, minimaldecreased disc height, Schmorl's nodes at the opposing endplates,anteriorendplate spondylosis no posterior annular disc bulge/protrusion. Normalvisualized inferior neural foramina and facet joints. Normal centralcanal(T2 sagittal series image 9). T11-12, T12-L1: Sagittal imaging only. Normal disc hydration, minimaldecreased disc height at T11-12 with Normal disc height the T12-L1,Schmorl's nodes at the opposing endplates, anterior endplate spondylosisnoposterior annular disc bulge/protrusion. Normal facet joints and normalneural foramina. Normal central canal (T2 sagittal series image 8). Normal lumbar lordosis. There is a mild levoscoliosis of the lumbarspine.Normal conus medullaris that terminates at the T12-L1 level. L1-2: Sagittal imaging only. Normal disc height and hydration, Schmorl'snodes at the opposing endplates, minimal anterior endplate spondylosis,andno posterior annular disc bulge/protrusion. Normal neural foramina andfacet joints. Normal central canal. L2-3: Slight disc desiccation, minimal loss of disc height, anteriorendplate spondylosis, and circumferential annular disc bulge. Normalfacetjoints and minimal noncompressive medial neural foraminal narrowing.Normal central canal and lateral recesses (T1 and T2 axial series image18). L3-4: Slight disc desiccation, minimal to mild loss of disc height,anterior endplate spondylosis, and small broad-based disc herniation oftheprotrusion type measuring less than 3 mm (AP) with flattening of theventral thecal sac. The disc lies close to the L4 nerve roots. Minimalfacet arthrosis and ligamentous hypertrophy and mild to moderate medialneural foraminal narrowing with questionable neural impingement medially.Normal central canal and narrowing of the lateral recesses greater on theleft (T1 and T2 axial series image 12 and 13). L4-5: Normal disc height, slight disc desiccation, anterior endplatespondylosis, circumferential annular disc bulge and central discherniationof the protrusion type measuring 4 x 18 mm (AP x transverse) withintervalappearance of annular tear. There is contouring of the ventral thecalsac.Mild facet arthrosis with small facet effusions, minimal ligamentoushypertrophy, and mild to moderate left greater than right neuralforaminalnarrowing with questionable neural impingement greater on the left.Normalcentral canal and narrowing of the lateral recesses greater on the left (T1and T2 axial series image 7 and 8). L5-S1: Normal disc height, slight disc desiccation, anterior endplatespondylosis, spondylolisthesis with 5 mm of anterolisthesis of L5 inrelationship to S1, and uncovering of the disc with annular disc bulgeandleft foraminal disc herniation migrating posterior to the L5 vertebralbodymeasuring 4 x 12 x 5 mm (AP x transverse x craniocaudal). There arebilateral L5 pars interarticularis defects with degenerative changesgreater on the left, minimal facet arthrosis, and moderately severe leftand mild right neural foraminal narrowing with neural impingement on theleft. Normal central canal and lateral recesses (T1 and T2 axial seriesimage 3 and 4). Normal visualized sacral ala. Normal visualized paraspinous soft tissue structures. IMPRESSION:Multilevel degenerative changes, as described above. Significantfindingsinclude: Lumbar levoscoliosis. L2-3 stable -- circumferential annular disc bulge. L3-4 stable -- small broad-based disc protrusion close to the L4 nerveroots, questionable impingement the exiting L3 nerve roots medially. L4-5 circumferential annular disc bulging, stable central disc protrusionbut interval appearance of annular tear, persistent questionableimpingement of the exiting L4 nerve roots greater on the left. L5-S1 stable -- grade 1 spondylolisthesis, annular disc bulge, leftforaminal disc herniation migrating posterior to the L5 vertebral body,impingement of the exiting left L5 nerve root, and degenerative change atthe bilateral L5 pars interarticularis defects and facet joints. Signed:Venecia Sofia M.D.November 03, 2012 at 8:14:18 PM [phone] Signed LL/LL If you are the referring physician and would like to consult with theradiologist who provided this interpretation, please contact Venecia Reyes M.D. at [phone]. If this radiologist is unavailable, you willbe directed to another radiologist to assist. If you are a patient with a question regarding this report, pleasecontactyour referring physician directly. Professional Interpretation Provided By: Bee There, Phone , These documents contain legally protected and confidential healthinformation intended only for the use of the individual or entity namedabove. If you are not the intended recipient, you are hereby notifiedthatany disclosure, copying, distribution, or other use of these documents isstrictly prohibited. If you have received this information in error,pleasenotify the sender immediately and arrange for the return or destructionofthese documents. Dictated on 11/03/122013 by CULLEN SOFIA MDATranscribed on 11/03/122015 by ITS IMPORTSign by VENECIA SOFIA MD on 11/03/122016 Sign by: VENECIA SOFIA MD Blood Glucose , Office ([phone])Ordered By: PANFILO Broussard on 10-21-2012 Glucose Glucometer molar conc (BldC) 90 1 Normal [facility] Work Phone: HgA1C , Office ([phone])Ordere d By: PANFILO Broussard on 10-21-2012 Hemoglobin A1c/Hemoglobin.total mass fraction (Bld) 5.8 % Normal 4.6 - 7.1 Comprehensiv e Internal Medicine Work Phone: Blood Glucose , Office ([phone])Ordered By: Delfina Boyd on 07-22-2012 Glucose Glucometer molar conc (BldC) 106 1 Normal [facility] Work Phone: HgA1C , Office ([phone])Ordere d By: PANFILO Broussard on 07-22-2012 Hemoglobin A1c/Hemoglobin.total mass fraction (Bld) 6.1 % Normal 4.6 - 7.1 Comprehensiv e Internal Medicine Work Phone: F2WQdimunb By: Anctu on 07-21-2012 Hemoglobin A1c/Hemoglobin.total mass fraction (Bld) 6.0 % Normal 4.2-6.3 Comprehensiv e Internal Medicine Work Phone: CBCMDOrdered By: [employer] on 07-21-2012 Erythrocyte distribution width Ratio (RBC) 13.8 % Normal 11.6-14.6 [facility] Work Phone: Hematocrit Volume Fraction (Bld) 46.2 % Normal 40-54 [facility] Work Phone: Hemoglobin mass conc (Bld) 15.7 g/dL Normal 13.0-16.5 [facility] Work Phone: MCH Entitic mass (RBC) 32.2 pg Abnormal 27.0-32.0 [facility] Work Phone: MCHC mass conc (RBC) 34.0 g/dL Normal 32-36 Comp rehensive Internal Medicine Work Phone: MCV Entitic volume (RBC) 94.9 fL Abnormal 80-94 [facility] Work Phone: Platelet mean volume Entitic volume (Bld) 11.3 fL Normal 6.2-12.0 Comprehensi ve Internal Medicine Work Phone: Platelets #/vol (Bld) 196 10*3/uL Normal 150-450 Co mprehensive Internal Medicine Work Phone: RBC #/vol (Bld) 4.87 {M/mm3} Normal 4.6-6.2 Compreh ensive Internal Medicine Work Phone: WBC #/vol (Bld) 10.6 {k/mm3} Normal 4.4-11.0 Compreh ensive Internal Medicine Work Phone: CBCMD 0.5 % Normal 0-5 [facility] Work Phone: CBCMD 7.9 % Normal 0-10 [facility] Work Phone: CBCMD 22.9 % Normal 19-41 [facility] Work Phone: CBCMD 68.1 % Normal 47-70 [facility] Work Phone: CBCMD 0.030 3/ul Abnormal 0.0-0.0 [facility] Work Phone: CBCMD 0.30 % Abnormal 0.0-0.0 [facility] Work Phone: CBCMD 0.3 % Normal 0-1 [facility] Work Phone: CBCMD 47.5 fL Abnormal 35.1-43.9 [facility] Work Phone: CBCMD 7.3 3/uL Normal 2.0-7.7 [facility] Work Phone: CMPOrdered By: System Manage r on 07-21-2012 Albumin mass conc 3.9 g/dL Normal 3.4-5.0 Compreh [facility] centerive Internal Medicine Work Phone: Albumin/Globulin mass ratio 1.1 {RATIO} Normal 0.9-2.4 [facility] Work Phone: ALP enzyme act/vol 95 U/L Normal 50-136 [facility] Work Phone: ALT enzyme act/vol 30 U/L Normal 12-78 [facility] Internal Medicine Work Phone: Anion gap molar conc 9 mmol/L Normal 5-15 Comp [facility]ensive Internal Medicine Work Phone: AST enzyme act/vol 21 U/L Normal 15-37 Compre [facility] Internal Medicine Work Phone: Bilirubin mass conc 0.50 mg/dL Normal 0.00-1.00 Compr ensive Internal Medicine Work Phone: Calcium mass conc 8.9 mg/dL Normal 8.5-10.1 Compreh ensive Internal Medicine Work Phone: Chloride molar conc 104 mmol/L Normal 98-107 Compr ehensive Internal Medicine Work Phone: CO2 molar conc 28.0 mmol/L Normal 21.0-32.0 Comprehen sive Internal Medicine Work Phone: Creatinine mass conc 1.0 mg/dL Normal 0.8-1.3 Comp rehensive Internal Medicine Work Phone: GFR/1.73 sq M predicted among blacks MDRD vol rate/area (S/P/Bld) 101 mL/min/{1.73_m2} Normal Compreh ensive Internal Medicine Work Phone: GFR/1.73 sq M.predicted MDRD vol rate/area 83 mL/min/{1.73_m2} Normal Comprehensiv e Internal Medicine Work Phone: Globulin mass conc (S) 3.5 g/dL Normal 2.7-4.2 [facility] Work Phone: Glucose mass conc 99 mg/dL Normal 70-110 Compreh ensive Internal Medicine Work Phone: Potassium molar conc 3.9 mmol/L Normal 3.5-5.1 Comp rehensive Internal Medicine Work Phone: Protein mass conc 7.4 g/dL Normal 6.4-8.2 Compreh ensive Internal Medicine Work Phone: Sodium molar conc 141 mmol/L Normal 136-145 Compreh ensive Internal Medicine Work Phone: Urea nitrogen mass conc 13 mg/dL Normal 7-18 [facility] Work Phone: Urea nitrogen/Creatinine mass ratio 13.0 {RATIO} Normal 10-20 [facility] Work Phone: LIPIDOrdered By: Aleksander blevins on 07-21-2012 Cholesterol in HDL mass conc 32 mg/dL Abnormal [facility] Work Phone: Comment on above: Reference Range HDL <40 mg/dL Low HDL Cholesterol HDL >or= 60 mg/dL High HDL Cholesterol Cholesterol in LDL mass conc 173 mg/dL Abnormal 0-130 [facility] Work Phone: Cholesterol in VLDL mass conc 38 mg/dL Normal 5-40 [facility] Work Phone: Cholesterol mass conc 243 mg/dL Abnormal Com prehensive Internal Medicine Work Phone: Comment on above: <200 mg/dL Desirable 200-240 mg/dL Borderline >240 mg/dL High Risk Triglyceride mass conc 189 mg/dL Normal [facility] Work Phone: Comment on above: Serum Triglycerides Reference Interval Normal <150 mg/dL Borderline high 150 - 199 mg/dL High 200 - 499 mg/dL Very High > or = 500 mg/dL MIACREOrdered By: System Man ager on 07-21-2012 Creatinine mass conc 20.0 {mg/g_CRE} Normal [facility] Work Phone: MIACRE 29.9 mg/L Normal [facility] Work Phone: MIACRE 148.9 mg/dL Normal [facility] Work Phone: UACOrdered By: System Merge.rs AG r on 07-21-2012 RBC #/vol (U) 0 SEEN Normal 0-5 Comprehensi ve Internal Medicine Work Phone: WBC #/vol (U) 0-5 SEEN Normal 0-5 Comprehensi ve Internal Medicine Work Phone: UAC Negative Normal [facility] Work Phone: UAC 1 mg/dL Abnormal [facility] Work Phone: UAC 7 1 Normal 5.0 - 8.0 [facility] Work Phone: UAC 1.015 1 Normal 1.002-1.03 0 [facility] Work Phone: UAC Normal Normal [facility] Work Phone: UAC Clear Normal [facility] Work Phone: UAC Yellow Normal [facility] Work Phone: UAC 0 SEEN Normal 0-5 [facility] Work Phone: Blood Glucose , Office ([phone])Ordered By: Jennifer Anthony on 02-11-2012 Glucose Glucometer molar conc (dC) 187 1 Normal [facility] Work Phone: Urinalysis, Office ([phone])Or dered By: Maria Isabel Elizabeth on 02-11-2012 Bilirubin Ql (U) Negative Normal Comprehe nsive Internal Medicine Work Phone: Glucose Test strip mass conc (U) Negative Normal [facility] Work Phone: Hemoglobin Ql (U) Negative Normal Compreh ensive Internal Medicine Work Phone: Ketones Ql (U) Negative Normal Comprehens randal Internal Medicine Work Phone: Leukocyte esterase Test strip Ql (U) Negative Normal [facility] Work Phone: Nitrite Ql (U) Negative Normal Comprehens randal Internal Medicine Work Phone: pH (U) 6.0 [pH] Normal [facility] Work Phone: Protein Ql (U) Negative Normal Comprehens randal Internal Medicine Work Phone: Specific gravity Relative Density (U) 1.010 1 Normal Comprehensi ve Internal Medicine Work Phone: Urobilinogen mass/time (24H U) Normal Normal [facility] Work Phone: Urinalysis, Office ([phone])on 02-11-2012 Bilirubin Ql (U) Negative Normal Comprehe nsive Internal Medicine; [facility] Work Phone: Glucose Test strip (U) [Mass/Vol] Negative Normal [facility]; [facility] Work Phone: Hemoglobin Ql (U) Negative Normal Compreh ensive Internal Medicine; [facility] Work Phone: Ketones Ql (U) Negative Normal Comprehens randal Internal Medicine; [facility] Work Phone: Leukocyte esterase Test strip Ql (U) Negative Normal [facility]; [facility] Work Phone: Nitrite Ql (U) Negative Normal Comprehens randal Internal Medicine; [facility] Work Phone: Protein Ql (U) Negative Normal Comprehens randal Internal Medicine; [facility] Work Phone: Blood Glucose , Office ([phone])Ordered By: Cyn Springer on 12-29-2011 Glucose Glucometer molar conc (BldC) 111 1 Normal [facility] Work Phone: HgA1C , Office ([phone])Ordere d By: Cyn Springer on 12-29-2011 Hemoglobin A1c/Hemoglobin.total mass fraction (Bld) 6.4 % Normal 4.6 - 7.1 Comprehensiv e Internal Medicine Work Phone: Blood Glucose , Office ([phone])Ordered By: Cyn Springer on 05-12-2011 Glucose Glucometer molar conc (BldC) 123 1 Normal [facility] Work Phone: HgA1C , Office ([phone])Ordere d By: Cyn Springer on 05-12-2011 Hemoglobin A1c/Hemoglobin.total mass fraction (Bld) 5.8 % Normal 4.6 - 7.1 Comprehensiv e Internal Medicine Work Phone: Blood Glucose , Office ([phone])Ordered By: PANFILO Broussard on 01-03-2011 Glucose Glucometer molar conc (BldC) 129 1 Normal [facility] Work Phone: CBC WITH MANUAL DIFF ([phone]) Ordered By: Utilization Management Manager on 01-03-2011 Basophils #/vol (Bld) 0.1 {x10E3/uL} Normal 0.0-0.2 [facility] Work Phone: Comment on above: PATIENT WAS FASTINGP ERFORMED BY: [id number] [facility]lieCentral [facility] [id number] Basophils (Bld) [#/Vol] 0.1 10*3/uL Normal 0.0-0.2 [facility]; [facility] Work Phone: Basophils/100 WBC (Bld) 1 % Normal 0-3 [facility] Work Phone: Comment on above: PATIENT WAS FASTINGP ERFORMED BY: [email or web address] [facility] [id number] Eosinophils #/vol (Bld) 0.1 {x10E3/uL} Normal 0.0-0.4 [facility] Work Phone: Comment on above: PATIENT WAS FASTINGP ERFORMED BY: MIRIAM FieldsHenry Ford Cottage Hospital6370 [facility] [id number] Eosinophils (Bld) [#/Vol] 0.1 10*3/uL Normal 0.0-0.4 [facility]; [facility] Work Phone: Eosinophils/100 WBC (Bld) 1 % Normal 0-7 [facility] Work Phone: Comment on above: PATIENT WAS FASTINGP ERFORMED BY: [address] [id number] Erythrocyte distribution width Ratio (RBC) 14.1 % Normal 11.7-15.0 [facility] Work Phone: Comment on above: PATIENT WAS FASTINGP ERFORMED BY: [address] [id number] Hematocrit Volume Fraction (Bld) 46.4 % Normal 36.0-50.0 [facility] Work Phone: Comment on above: PATIENT WAS FASTINGP ERFORMED BY: [facility]6370 [facility] [id number] Hemoglobin mass conc (Bld) 15.6 g/dL Normal 12.5-17.0 [facility] Work Phone: Comment on above: PATIENT WAS FASTINGP ERFORMED BY: [place] [id number] [facility] [id number] Immature granulocytes #/vol (Bld) 0.0 {x10E3/uL} Normal 0.0-0.1 [facility] Work Phone: Comment on above: PATIENT WAS FASTINGP ERFORMED BY: [place] [id number] [facility] [id number] Immature granulocytes (Bld) [#/Vol] 0.0 10*3/uL Normal 0.0-0.1 [facility]; [facility] Work Phone: Immature granulocytes/100 WBC (Bld) 0 % Normal 0-2 [facility] Work Phone: Comment on above: Please note refere nce interval change PATIENT WAS FASTINGP ERFORMED BY: [facility] [id number] [address] RoadDublin [place] [id number] Lymphocytes #/vol (Bld) 2.4 {x10E3/uL} Normal 0.7-4.5 [facility] Work Phone: Comment on above: PATIENT WAS FASTINGP ERFORMED BY: CB [facility] Qhfsjt0470 [address]eralta RoadScionhealthin [place] [id number] Lymphocytes (Bld) [#/Vol] 2.4 10*3/uL Normal 0.7-4.5 [facility]; [facility] Work Phone: Lymphocytes/100 WBC (Bld) 28 % Normal 14-46 [facility] Work Phone: Comment on above: PATIENT WAS FASTINGP ERFORMED BY: [facility] Jalxuh[address] [facility] [place] [id number] MCH Entitic mass (RBC) 32.8 pg Normal 27.0-34.0 [facility] Work Phone: Comment on above: PATIENT WAS FASTINGP ERFORMED BY: [facility] [id number] [facility] [id number] MCHC mass conc (RBC) 33.6 g/dL Normal 32.0-36.0 Comp [facility] Internal Medicine Work Phone: Comment on above: PATIENT WAS FASTINGP ERFORMED BY: [facility] [id number] [facility] [place] [id number] MCV Entitic volume (RBC) 98 fL Normal 80-98 [facility] Work Phone: Comment on above: PATIENT WAS FASTINGP ERFORMED BY: CB [facility] Qrrysw9395 [address] RoadDublin [place] [id number] Monocytes #/vol (Bld) 0.8 {x10E3/uL} Normal 0.1-1.0 [facility] Work Phone: Comment on above: PATIENT WAS FASTINGP ERFORMED BY: MIRIAM LabCopetr TreviñoVcjwmy[address] [facility] [id number] Monocytes (Bld) [#/Vol] 0.8 10*3/uL Normal 0.1-1.0 [facility]; [facility] Work Phone: Monocytes/100 WBC (Bld) 10 % Normal 4-13 [facility] Work Phone: Comment on above: PATIENT WAS FASTINGP ERFORMED BY: MIRIAM [facility] [id number] [facility] [id number] Neutrophils #/vol (Bld) 5.1 {x10E3/uL} Normal 1.8-7.8 [facility] Work Phone: Comment on above: PATIENT WAS FASTINGP ERFORMED BY: MIRIAM LabCharlotte Jupjyn8886 [facility] [id number] Neutrophils (Bld) [#/Vol] 5.1 10*3/uL Normal 1.8-7.8 [facility]; [facility] Work Phone: Neutrophils/100 WBC (Bld) 60 % Normal 40-74 [facility] Work Phone: Comment on above: PATIENT WAS FASTINGP ERFORMED BY: MIRIAM Treviñolin6370 [facility] [id number] Platelets #/vol (Bld) 192 {x10E3/uL} Normal 140-415 [facility] Work Phone: Comment on above: PATIENT WAS FASTINGP ERFORMED BY: MIRIAM [facility] Dxbrlc4520 [facility] [id number] Platelets (Bld) [#/Vol] 192 10*3/uL Normal 140-415 [facility]; [facility] Work Phone: RBC #/vol (Bld) 4.75 {x10E6/uL} Normal 4.10-5.60 Comp [facility] Internal Medicine Work Phone: Comment on above: PATIENT WAS FASTINGP ERFORMED BY: MIRIAM Mujica [id number] [facility] [id number] RBC (Bld) [#/Vol] 4.75 10*6/uL Normal 4.10-5.60 Compr ensive Internal Medicine; [facility] Work Phone: WBC #/vol (Bld) 8.5 {x10E3/uL} Normal 4.0-10.5 Compr ensive Internal Medicine Work Phone: Comment on above: PATIENT WAS FASTINGP ERFORMED BY: [facility] Lnjzwt1214 [facility] [id number] WBC (Bld) [#/Vol] 8.5 10*3/uL Normal 4.0-10.5 Compre [facility] Internal Medicine; [facility] Work Phone: HgA1C , Office ([phone])Ordere d By: PANFILO Broussard on 01-03-2011 Hemoglobin A1c/Hemoglobin.total mass fraction (Bld) 6.3 % Normal 4.6 - 7.1 Comprehensiv e Internal Medicine Work Phone: LIPID PANEL ([phone])Ordered B y: Utilization Management Manager on 01-03-2011 Cholesterol in HDL mass conc 34 mg/dL Abnormal [facility] Work Phone: Comment on above: According to ATP-III Guidelines, HDL-C >59 mg/dL is considered anegative risk factor for CHD. PATIENT WAS FASTINGP ERFORMED BY: MIRIAM [facility] Vtlgae5783 [facility] [id number] Cholesterol in LDL mass conc 131 mg/dL Abnormal 0-99 [facility] Work Phone: Comment on above: PATIENT WAS FASTINGP ERFORMED BY: [facility] Fberxa7203 [facility] [id number] Cholesterol in LDL/Cholesterol in HDL mass ratio 3.9 {ratio_units} Abnormal 0.0-3.6 [facility] Work Phone: Comment on above: PATIENT WAS FASTINGP ERFORMED BY: MIRIAM [facility] [id number] [facility] [id number] Cholesterol in VLDL mass conc 73 mg/dL Abnormal 5-40 [facility] Work Phone: Comment on above: PATIENT WAS FASTINGP ERFORMED BY: MIRIAM LabMargarita TreviñoKstmuj6236 [facility] [id number] Cholesterol mass conc 238 mg/dL Abnormal 100-199 [facility] prehensive Internal Medicine Work Phone: Comment on above: PATIENT WAS FASTINGP ERFORMED BY: MIRIAM LabCopetr TreviñoFirzvq8847 [facility] [id number] Triglyceride mass conc 367 mg/dL Abnormal 0-149 [facility] Work Phone: Comment on above: PATIENT WAS FASTINGP ERFORMED BY: MIRIAM Treviñolin6370 [facility] [id number] METABOLIC PANEL, COMPREHENSI VE ([id number])Ordered By: Utilization Management Manager on 01-03-2011 Albumin mass conc 4.3 g/dL Normal 3.5-5.5 Compreh ensive Internal Medicine Work Phone: Comment on above: PATIENT WAS FASTINGP ERFORMED BY: MIRIAM Treviñolin6370 [facility] [id number] Albumin/Globulin mass ratio 1.7 {ratio} Normal 1.1-2.5 [facility] Work Phone: Comment on above: PATIENT WAS FASTINGP ERFORMED BY: MIRIAM Treviñolin6370 [facility] [id number] ALP [Catalytic activity/Vol] 105 U/L Normal 25-150 [facility]; [facility] Work Phone: ALP enzyme act/vol 105 [iU]/L Normal 25-150 [facility] Internal Medicine Work Phone: Comment on above: PATIENT WAS FASTINGP ERFORMED BY: MIRIAM [facility] Ecffch2334 [facility] [id number] ALT [Catalytic activity/Vol] 25 U/L Normal 0-55 [facility]; [facility] Work Phone: ALT enzyme act/vol 25 [iU]/L Normal 0-55 [facility] Internal Medicine Work Phone: Comment on above: PATIENT WAS FASTINGP ERFORMED BY: CB [facility] Liswbp3542 [address]Dublin [place] [id number] AST [Catalytic activity/Vol] 25 U/L Normal 0-40 [facility]; [facility] Work Phone: AST enzyme act/vol 25 [iU]/L Normal 0-40 Compre [facility] Internal Medicine Work Phone: Comment on above: PATIENT WAS FASTINGP ERFORMED BY: CB [facility] Urdroc1528 [address] RoadDublin [place] [id number] Bilirubin mass conc 0.3 mg/dL Normal 0.0-1.2 Compr ensive Internal Medicine Work Phone: Comment on above: PATIENT WAS FASTINGP ERFORMED BY: CB [facility] [id number] [address] RoadDublin [place] [id number] Calcium mass conc 9.6 mg/dL Normal 8.7-10.2 Compreh [facility] Internal [facility] Work Phone: Comment on above: PATIENT WAS FASTINGP ERFORMED BY: CB [facility] [id number] [address] RoadDublin [place] [id number] Chloride molar conc 102 mmol/L Normal 97-108 Compr [facility] Internal Medicine Work Phone: Comment on above: PATIENT WAS FASTINGP ERFORMED BY: CB [facility] Ifsvst6238 [address]Dublin [place] [id number] CO2 molar conc 22 mmol/L Normal 20-32 Comprehens randal Internal Medicine Work Phone: Comment on above: PATIENT WAS FASTINGP ERFORMED BY: CB [facility] Kpinzb2223 [address] RoadDublin [place] [id number] Creatinine mass conc 1.12 mg/dL Normal 0.76-1.27 Comp [facility] Internal Medicine Work Phone: Comment on above: PATIENT WAS FASTINGP ERFORMED BY: CB [facility] Vlahap2501 [address]Dublin [place] [id number] GFR/1.73 sq M predicted among blacks MDRD vol rate/area (S/P/Bld) 87 mL/min/{1.73_m2} Normal Comprehe nsive Internal Medicine Work Phone: Comment on above: Note: A persistent e GFR <60 mL/min/1.73 m2 (3 months or more) mayindicate chronic kidney disease. An eGFR >59 mL/min/1.73 m2 with anelevated urine protein also may indicate chronic kidney disease.Calculated using CKD-EPI formula. PATIENT WAS FASTINGP ERFORMED BY: CB [facility] [id number] [address]Dublin [place] [id number] GFR/1.73 sq M predicted among non-blacks CKD-EPI vol rate/area (S/P/Bld) 75 mL/min/1.73 Normal [facility] Work Phone: Comment on above: PATIENT WAS FASTINGP ERFORMED BY: CB [facility] Nbamkl5654 [address] RoadDublin [place] [id number] Globulin mass conc (S) 2.5 g/dL Normal 1.5-4.5 [facility] Work Phone: Comment on above: PATIENT WAS FASTINGP ERFORMED BY: CB [facility] [id number] [address] RoadDublin [place] [id number] Glucose mass conc 110 mg/dL Abnormal 65-99 Compreh ensive Internal Medicine Work Phone: Comment on above: PATIENT WAS FASTINGP ERFORMED BY: CB [facility] Rqsviv5754 [address]Dublin [place] [id number] Potassium molar conc 4.2 mmol/L Normal 3.5-5.2 Comp rehensive Internal Medicine Work Phone: Comment on above: PATIENT WAS FASTINGP ERFORMED BY: CB [facility] Qyinas8977 [address] RoadDublin [place] [id number] Protein mass conc 6.8 g/dL Normal 6.0-8.5 Compreh ensive Internal Medicine Work Phone: Comment on above: PATIENT WAS FASTINGP ERFORMED BY: CB [facility] Eujvmu1426 [address] RoadDublin [place] [id number] Sodium molar conc 138 mmol/L Normal 135-145 Compreh ensive Internal Medicine Work Phone: Comment on above: PATIENT WAS FASTINGP ERFORMED BY: MIRIAM [facility] Gcbkib4922 [address]Dublin [place] [id number] Urea nitrogen mass conc 17 mg/dL Normal 6-24 [facility] Work Phone: Comment on above: PATIENT WAS FASTINGP ERFORMED BY: CB [facility] Kvqjnq0545 [address] RoadDuin [place] [id number] Urea nitrogen/Creatinine mass ratio 15 mg/mg Normal 9-20 [facility] Work Phone: Comment on above: PATIENT WAS FASTINGP ERFORMED BY: MIRIAM [facility] [id number] [facility] [id number] MICROALBUMINOrdered By: Syst em Sports Announcer on 01-03-2011 Albumin DL <= 20 mg/L (U) [Mass/Vol] mg/dL Normal 0.0-17.0 [facility]; [facility] Work Phone: Albumin DL <= 20 mg/L mass conc (U) mg/dL Normal 0.0-17.0 [facility] Work Phone: Comment on above: PATIENT WAS FASTINGP ERFORMED BY: MIIRAM [facility] Izrflv4641 [address]eralta RoadScionhealthin [place] [id number] Albumin/Creatinine mass ratio (U) <1.3 Normal 0.0-30.0 [facility] Work Phone: Comment on above: PATIENT WAS FASTINGP ERFORMED BY: CB [facility] Iqzynx6423 [address]eralta RoadCentral [facility] Hospital [id number] Creatinine mass conc (U) 74.7 mg/dL Normal 22.0-328.0 [facility] Work Phone: Comment on above: PATIENT WAS FASTINGP ERFORMED BY: CB [facility] Yyrrpg[address] [facility] [place] [id number] HgA1C , Office ([phone])Ordere d By: Zara Elliott on 09-26-2010 Hemoglobin A1c/Hemoglobin.total mass fraction (Bld) 6.1 % Normal 4.6 - 7.1 Comprehensiv e Internal Medicine Work Phone: CBCD,SMEAR DIFFOrdered By: S ystem Sports Announcer on 09-20-2010 Erythrocyte distribution width Ratio (RBC) 13.4 % Normal 11.6-14.6 [facility] Work Phone: Hematocrit Volume Fraction (Bld) 46.0 % Normal 40-54 [facility] Work Phone: Hemoglobin mass conc (Bld) 16.3 g/dL Normal 14.0-18.0 [facility] Work Phone: Lymphocytes/100 WBC (Bld) 31 % Normal 19-41 [facility] Work Phone: MCH Entitic mass (RBC) 34.2 pg Abnormal 27.0-32.0 [facility] Work Phone: MCHC mass conc (RBC) 35.4 g/dL Normal 32-36 [facility] Internal Medicine Work Phone: MCV Entitic volume (RBC) 96.6 fL Abnormal 80-94 [facility] Work Phone: Monocytes/100 WBC (Bld) 5 % Normal 0-10 [facility] Work Phone: Neutrophils #/vol (Bld) 6.1 3/uL Normal 2.0-7.[address] [facility] Internal Medicine Work Phone: Platelets #/vol (Bld) SeeNote Normal Com prehensive Internal Medicine Work Phone: Comment on above: Result: ADEQUATE Platelets #/vol (Bld) 165 10*3/uL Normal 150-450 Co mprehensive Internal Medicine Work Phone: RBC #/vol (Bld) 4.77 {M/mm3} Normal 4.6-6.2 Compreh ensive Internal Medicine Work Phone: WBC #/vol (Bld) 9.3 10*3/uL Normal 4.4-11.0 Comprehe nsive Internal Medicine Work Phone: CBCD,SMEAR DIFF 64 % Normal 47-70 Comprehen [facility] Internal Medicine Work Phone: CBCD,SMEAR DIFF 100 1 Normal Comprehen [facility] Internal Medicine Work Phone: CBCD,SMEAR DIFF SeeNote Normal [facility] Internal Medicine Work Phone: Comment on above: Result: NORM C+C COMP METABOLICOrdered By: Ad stem Sports Announcer on 09-20-2010 Albumin mass conc 3.9 g/dL Normal 3.4-5.0 [facility] Internal Medicine Work Phone: Albumin/Globulin mass ratio 1.3 {RATIO} Normal 0.9-2.[address] [facility] Internal Medicine Work Phone: ALP enzyme act/vol 86 U/L Normal 50-136 [facility] Internal Medicine Work Phone: ALT enzyme act/vol 38 U/L Normal 12-78 [facility] Internal Medicine Work Phone: Anion gap molar conc 10 mmol/L Normal 5-15 [facility] Internal Medicine Work Phone: AST enzyme act/vol 27 U/L Normal 15-37 [facility] Work Phone: Bilirubin mass conc 0.30 mg/dL Normal 0.00-1.00 [facility] Internal Medicine Work Phone: Calcium mass conc 9.2 mg/dL Normal 8.5-10.1 [facility] Internal Medicine Work Phone: Chloride molar conc 102 mmol/L Normal 98-107 [facility] Internal Medicine Work Phone: CO2 molar conc 26.0 mmol/L Normal 21.0-32.0 [facility] Work Phone: Creatinine mass conc 1.1 mg/dL Normal 0.8-1.3 [facility] Internal Medicine Work Phone: GFR/1.73 sq M predicted among blacks MDRD vol rate/area (S/P/Bld) 91 mL/min/{1.73_m2} Normal Comprehe [facility] Internal Medicine Work Phone: GFR/1.73 sq M.predicted MDRD vol rate/area 75 mL/min/{1.73_m2} Normal Comprehensiv e Internal Medicine Work Phone: Globulin mass conc (S) 3.0 g/dL Normal 2.7-4.2 [facility] Work Phone: Glucose mass conc 117 mg/dL Abnormal 70-110 Compreh ensive Internal Medicine Work Phone: Comment on above: Fasting Glucose resu lt from 110 to <126 mg/dL suggests IMPAIRED HOMEOSTASIS per A.D.A. criteria. Potassium molar conc 4.3 mmol/L Normal 3.5-5.1 Comp rehensive Internal Medicine Work Phone: Protein mass conc 6.9 g/dL Normal 6.4-8.2 Compreh ensive Internal Medicine Work Phone: Sodium molar conc 138 mmol/L Normal 136-145 Compreh ensive Internal Medicine Work Phone: Urea nitrogen mass conc 17 mg/dL Normal 7-18 [facility] Work Phone: Urea nitrogen/Creatinine mass ratio 15.5 {RATIO} Normal 10-20 [facility] Work Phone: LIPIDOrdered By: Aleksander blevins on 09-20-2010 Cholesterol in HDL mass conc 21 mg/dL Abnormal [facility] Work Phone: Comment on above: Reference Range HDL <40 mg/dL Low HDL Cholesterol HDL >or= 60 mg/dL High HDL Cholesterol Cholesterol in LDL mass conc Normal 0-130 [facility] Work Phone: Cholesterol in VLDL mass conc 103 mg/dL Abnormal 5-40 [facility] Work Phone: Cholesterol mass conc 205 mg/dL Abnormal Com prehensive Internal Medicine Work Phone: Comment on above: <200 mg/dL Desirable 200-240 mg/dL Borderline >240 mg/dL High Risk Triglyceride mass conc 513 mg/dL Abnormal [facility] Work Phone: Comment on above: TRIGLYCERIDE IS GREA TER THAN 400 mg/dL. LDL RESULT IS INVALID AND WILL NOT BE REPORTED.Serum Triglycerides Reference Interval Normal <150 mg/dL Borderline high 150 - 199 mg/dL High 200 - 499 mg/dL Very High > or = 500 mg/dL MICROALBOrdered By: Aleksander ragland on 09-20-2010 Creatinine mass conc Normal Comp rehensive Internal Medicine Work Phone: Creatinine mass conc 94.5 mg/dL Normal Comp rehensive Internal Medicine Work Phone: MICROALB < 5.[address] [facility] Internal Medicine Work Phone: BMPOrdered By: System Manage r on 02-19-2010 Anion gap molar conc 6 mmol/L Normal 5-15 [facility] rehensive Internal Medicine Work Phone: Comment on above: Please Note: TROPONI N REFERENCE RANGE CHANGEEffective MAY 08, 2009. Calcium mass conc 8.8 mg/dL Normal 8.5-10.1 Compreh ensive Internal Medicine Work Phone: Comment on above: Please Note: TROPONI N REFERENCE RANGE CHANGEEffective MAY 08, 2009. Chloride molar conc 104 mmol/L Normal 98-107 [facility]: Comment on above: Please Note: TROPONI N REFERENCE RANGE CHANGEEffective MAY 08, 2009. CO2 molar conc 30.0 mmol/L Normal 21.0-32.0 Comprehen [facility] Internal [facility] Work Phone: Comment on above: Please Note: TROPONI N REFERENCE RANGE CHANGEEffective MAY 08, 2009. Creatinine mass conc 1.1 mg/dL Normal 0.8-1.3 [facility] Work Phone: Comment on above: Please Note: TROPONI N REFERENCE RANGE CHANGEEffective MAY 08, 2009. GFR/1.73 sq M predicted among blacks MDRD vol rate/area (S/P/Bld) 91 mL/min/{1.73_m2} Normal Comprehe nsive Internal Medicine Work Phone: Comment on above: Please Note: TROPONI N REFERENCE RANGE CHANGEEffective MAY 08, 2009. GFR/1.73 sq M.predicted MDRD vol rate/area 75 mL/min/{1.73_m2} Normal Comprehensiv e Internal Medicine Work Phone: Comment on above: Please Note: TROPONI N REFERENCE RANGE CHANGEEffective MAY 08, 2009. Glucose mass conc 94 mg/dL Normal 70-110 Compreh ensive Internal Medicine Work Phone: Comment on above: Please Note: TROPONI N REFERENCE RANGE CHANGEEffective MAY 08, 2009. Potassium molar conc 5.0 mmol/L Normal 3.5-5.1 [facility] Work Phone: Comment on above: Please Note: TROPONI N REFERENCE RANGE CHANGEEffective MAY 08, 2009. Sodium molar conc 140 mmol/L Normal 136-145 [facility] Work Phone: Comment on above: Please Note: TROPONI N REFERENCE RANGE CHANGEEffective MAY 08, 2009. Urea nitrogen mass conc 10 mg/dL Normal 7-18 [facility] Work Phone: Comment on above: Please Note: TROPONI N REFERENCE RANGE CHANGEEffective MAY 08, 2009. Urea nitrogen/Creatinine mass ratio 9.1 {RATIO} Abnormal 10-20 [facility] Work Phone: Comment on above: Please Note: TROPONI N REFERENCE RANGE CHANGEEffective MAY 08, 2009. BRAIN W/WO CONTRASTOrdered B y: Utilization Management Manager on 02-19-2010 BRAIN W/WO CONTRAST See Note Normal [facility]: Comment on above: Exam Number: [id number] CLINICAL:49-year-old male with history of meningioma, evaluate for TIA.Left-sided numbness with blurred vision left eye sxhvqvoet25/13/2010. Meningioma was removed in 2003. MRI BRAIN WITHOUT AND WITH CONTRAST TECHNIQUE:Standardized multiplanar fat and water weighted pulse sequences wereobtained. 20 ml of Magnevist contrast material was administeredintravenously for the contrast portion of the examination. COMPARISON:CT brain without contrast 02/18/2010. FINDINGS:Ventricles and extra-axial spaces are within normal limits in sizefor the patient's age. There is mild asymmetrical enlargement ofthe right lateral ventricle, compatible with normal variantcoaptation. Cystic encephalomalacia and gliosis is present in theright middle cranial fossa, presumably corresponding to meningiomaresection cavity, with evidence of overlying craniotomy defect.There is minimal linear and slightly nodular enhancement marginatingthe extirpation cavity, without demonstrated discrete mass tosuggest tumor recurrence. Comparison with any previous brain MRIstudies would be of benefit to confirm this impression. There are alimited number of small, scattered foci of FLAIR signalhyperintensity in the bihemispheric white matter, compatible withmild chronic microvascular ischemic disease in an individual of thisage. There is no evidence for recent intracranial ischemia or othercause of cytotoxic edema on diffusion weighted imaging (DWI). Normal basal ganglia and thalami. Normal flow voids within the major intracranial circulationsuggesting patency by spin echo criteria. Aside from right middle cranial fossa tumor extirpation cavity,there is no demonstrated localized extra-axial fluid collection. Normal enhancement of the dural sinuses and cortical veins. Thereare linear enhancing structures in a "spoke wheel" pattern in theleft cerebellar hemisphere, appearance consistent with adevelopmental venous anomaly. Normal sella turcica, pituitary gland, infundibular stalk, opticchiasm and hypothalamus, within the constraints of a routine brainstudy. Normal tectal plate and pineal gland. Normal basal cisterns. Chronic microvascular ischemic changes inthe bilateral josé miguel. Normal midbrain and medulla. Enhancing developmental venous anomaly in the left cerebellarhemisphere, with otherwise normal cerebellum. Prominent bilateral mastoid effusions. Normal visualized bilateralinternal auditory canal structures. No demonstrated orbital abnormality on routine brain imaging.Normal visualized paranasal sinuses. Right temporal craniotomy with otherwise normal calvarium and skullbase. Suspected mild degenerative remodeling of the bilateralmandibular condyles. Normal visualized soft tissue structures.Degenerative changes of the visualized upper cervical spine. IMPRESSION:1. Postsurgical changes compatible with right middle cranial fossameningioma resection, with right temporal craniotomy and underlyingcystic encephalomalacia and gliosis with minimal enhancementmarginating the resection cavity. Continued surveillance isrecommended as clinically warranted. 2. Chronic microvascular ischemic changes involving thesupratentorial white matter and josé miguel, without demonstratedrestricted diffusion to confirm a recent completed ischemic event. 3. Left cerebellar developmental venous anomaly. 4. Bilateral mastoid air cell effusions consistent with mastoiditis. Reported By: DAVID ABREU CKMBOrdered By: System Manag er on 02-19-2010 CK.MB mass conc 187 U/L Normal 35-232 [facility] Internal Medicine Work Phone: Comment on above: Please Note: TROPONI N REFERENCE RANGE CHANGEEffective MAY 08, 2009. CK.MB mass conc 1.5 ng/mL Normal 0.0-5.0 [facility] Internal Medicine Work Phone: Comment on above: CK-MB and RI Interpr etation MB Relative IndexNon-AMI 5 5 > 4 Please Note: TROPONI N REFERENCE RANGE CHANGEEffective MAY 08, 2009. LIPIDOrdered By: System Salma felicity on 02-19-2010 Cholesterol in HDL mass conc 29 mg/dL Abnormal [facility] Work Phone: Comment on above: Reference RangeHDL < 40 mg/dL Low HDL CholesterolHDL >or= 60 mg/dL High HDL Cholesterol Please Note: TROPONI N REFERENCE RANGE CHANGEEffective MAY 08, 2009. Cholesterol in LDL mass conc 110 mg/dL Normal 0-130 [facility] Work Phone: Comment on above: Please Note: TROPONI N REFERENCE RANGE CHANGEEffective MAY 08, 2009. Cholesterol in VLDL mass conc 70 mg/dL Abnormal 5-40 [facility] Work Phone: Comment on above: Please Note: TROPONI N REFERENCE RANGE CHANGEEffective MAY 08, 2009. Cholesterol mass conc 209 mg/dL Abnormal [facility] prehensive Internal Medicine Work Phone: Comment on above: <200 mg/dL Desirable 200-240 mg/dL Borderline>240 mg/dL High Risk Please Note: TROPONI N REFERENCE RANGE CHANGEEffective MAY 08, 2009. Triglyceride mass conc 350 mg/dL Abnormal [facility] Work Phone: Comment on above: Serum Triglycerides Reference IntervalNormal <150 mg/dLBorderline high 150 - 199 mg/dLHigh 200 - 499 mg/dLVery High > or = 500 mg/dL Please Note: TROPONI N REFERENCE RANGE CHANGEEffective MAY 08, 2009. TROPONIN-IOrdered By: Utilization Management Manager on 02-19-2010 Troponin I.cardiac mass conc ng/mL Normal [facility] Work Phone: Comment on above: TROPONIN-I EXPECTED VALUES <0.05 NEGATIVE0.06 - 0.59 AT RISK OF [place]> OR = 0.60 SUGGEST [place] Please Note: TROPONI N REFERENCE RANGE CHANGEEffective MAY 08, 2009. CKMBOrdered By: System Manag er on 02-18-2010 CK.MB mass conc 206 U/L Normal 35-232 [facility] Internal Medicine Work Phone: Comment on above: Please Note: TROPONI N REFERENCE RANGE CHANGEEffective MAY 08, 2009. CK.MB mass conc 1.5 ng/mL Normal 0.0-5.0 [facility] Internal Medicine Work Phone: Comment on above: CK-MB and RI Interpr etation MB Relative IndexNon-AMI 5 5 > 4 Please Note: TROPONI N REFERENCE RANGE CHANGEEffective MAY 08, 2009. TROPONIN-IOrdered By: Utilization Management Manager on 02-18-2010 Troponin I.cardiac mass conc ng/mL Normal [facility] Internal Medicine Work Phone: Comment on above: TROPONIN-I EXPECTED VALUES <0.05 NEGATIVE0.06 - 0.59 AT RISK OF [place]> OR = 0.60 SUGGEST [place] Please Note: TROPONI N REFERENCE RANGE CHANGEEffective MAY 08, 2009. COMMENTS: ER RM 10Pl ease Note: TROPONIN REFERENCE RANGE CHANGEEffective MAY 08, 2009. Lipid Panel (53124)Ordered B y: Delfina Boyd on 11-30-2008 Cholesterol in HDL mass conc 31 mg/dL Abnormal [facility] Work Phone: Comment on above: According to ATP-III Guidelines, HDL-C >59 mg/dL is considered anegative risk factor for CHD. PATIENT WAS FASTINGP ERFORMED BY: [employer] [place] [id number] Cholesterol in VLDL mass conc VLDLCH Normal 5-40 [facility] Work Phone: Comment on above: The calculation for the VLDL cholesterol is not valid whentriglyceride level is >400 mg/dL.Triglyceride result indicated is too high for an accurate LDLcholesterol estimation. PATIENT WAS FASTINGP ERFORMED BY: [employer] [place] [id number] Cholesterol mass conc 264 mg/dL Abnormal 100-199 [facility] prehensive Internal Medicine Work Phone: Comment on above: PATIENT WAS FASTINGP ERFORMED BY: [employer] [place] [id number] Triglyceride mass conc 542 mg/dL Abnormal 0-149 [facility] Work Phone: Comment on above: PATIENT WAS FASTINGP ERFORMED BY: [employer] [id number] [place] [id number] Metabolic Panel, Comprehensi ve ([id number])Ordered By: Delfina Boyd on 11-30-2008 Albumin mass conc 4.3 g/dL Normal 3.5-5.5 Compreh ensive Internal Medicine Work Phone: Comment on above: PATIENT WAS FASTINGC linical Information: ADD DRAW FEE [id number] ADD J [id number] PERFORMED BY: LabCoLourdes Medical Center of Burlington CountyZabwvk6532 [facility] [id number] Albumin/Globulin mass ratio 1.6 {ratio} Normal 1.1-2.5 [facility] Work Phone: Comment on above: PATIENT WAS FASTINGC linical Information: ADD DRAW FEE [id number] ADD J [id number] PERFORMED BY: MIRIAM [employer] [id number] [facility] [id number] ALP [Catalytic activity/Vol] 108 U/L Normal 25-150 [facility]; [facility] Work Phone: ALP enzyme act/vol 108 [iU]/L Normal 25-150 [facility] Internal Medicine Work Phone: Comment on above: PATIENT WAS FASTINGC linical Information: ADD DRAW FEE [id number] ADD J [id number] PERFORMED BY: MIRIAM LabCoLourdes Medical Center of Burlington CountyZiqfby9950 [facility] [id number] ALT [Catalytic activity/Vol] 40 U/L Normal 0-55 [facility]; [facility] Work Phone: ALT enzyme act/vol 40 [iU]/L Normal 0-55 [facility] Internal Medicine Work Phone: Comment on above: PATIENT WAS FASTINGC linical Information: ADD DRAW FEE [id number] ADD J [id number] PERFORMED BY: [employer] [id number] [facility] [id number] AST [Catalytic activity/Vol] 35 U/L Normal 0-40 [facility]; [facility] Work Phone: AST enzyme act/vol 35 [iU]/L Normal 0-40 Compre hensive Internal Medicine Work Phone: Comment on above: PATIENT WAS FASTINGC linical Information: ADD DRAW FEE [id number] ADD J [id number] PERFORMED BY: MIRIAM [place] [id number] [facility] [id number] Bilirubin mass conc 0.4 mg/dL Normal 0.1-1.2 Compr ensive Internal Medicine Work Phone: Comment on above: PATIENT WAS FASTINGC linical Information: ADD DRAW FEE [id number] ADD J PERFORMED BY: [place] [id number] [facility] [id number] Calcium mass conc 9.8 mg/dL Normal 8.5-10.6 Compreh [facility] Work Phone: Comment on above: PATIENT WAS FASTINGC linical Information: ADD DRAW FEE [id number] ADD J [id number] PERFORMED BY: MIRIAM [place] [id number] [facility] [id number] Chloride molar conc 104 mmol/L Normal 97-108 Compr ensive Internal Medicine Work Phone: Comment on above: PATIENT WAS FASTINGC linical Information: ADD DRAW FEE [id number] ADD J 54843 PERFORMED BY: MIRIAM [place] [id number] [facility] [id number] CO2 molar conc 22 mmol/L Normal 20-32 Comprehens randal Internal Medicine Work Phone: Comment on above: PATIENT WAS FASTINGC linical Information: ADD DRAW FEE [id number] ADD J 12887 PERFORMED BY: MIRIAM LabTimothy [place] [id number] [facility] [id number] Creatinine mass conc 1.02 mg/dL Normal 0.76-1.27 Comp [facility] Work Phone: Comment on above: PATIENT WAS FASTINGC linical Information: ADD DRAW FEE [id number] ADD J 01612 PERFORMED BY: [address] [id number] GFR/1.73 sq M predicted among blacks MDRD vol rate/area (S/P/Bld) mL/min/{1.73_m2} Normal Comprehensi ve Internal Medicine Work Phone: Comment on above: Note: Persistent red uction for 3 months or more in an eGFR<60 mL/min/1.73 m2 defines CKD. Patients with eGFR values>/=60 mL/min/1.73 m2 may also have CKD if evidence of persistentproteinuria is present. Additional information may be found [email or web address]. PATIENT WAS FASTINGC linical Information: ADD DRAW FEE [id number] ADD J 76463 PERFORMED BY: Krikle P[facility] [id number] GFR/1.73 sq M.predicted MDRD (S/P/Bld) [Vol rate/Area] mL/min/{1.73_m2} Normal [facility] Work Phone: Comment on above: PATIENT WAS FASTINGC linical Information: ADD DRAW FEE [id number] ADD J 57744 PERFORMED BY: [employer] [place] SilverStorm TechnologiesNovant Health [facility] [id number] GFR/1.73 sq M.predicted MDRD vol rate/area mL/min/{1.73_m2} Normal [facility] Work Phone: Comment on above: PATIENT WAS FASTINGC linical Information: ADD DRAW FEE [id number] ADD J 02184 PERFORMED BY: [email or web address] [facility] [id number] Globulin mass conc (S) 2.7 g/dL Normal 1.5-4.5 [facility] Work Phone: Comment on above: PATIENT WAS FASTINGC linical Information: ADD DRAW FEE [id number] ADD J 35299 PERFORMED BY: [email or web address] [facility] [id number] Glucose mass conc 108 mg/dL Abnormal 65-99 Compreh ensive Internal Medicine Work Phone: Comment on above: PATIENT WAS FASTINGC linical Information: ADD DRAW FEE [id number] ADD J 66803 PERFORMED BY: [email or web address] [facility] [id number] Potassium molar conc 4.3 mmol/L Normal 3.5-5.2 Comp rehensive Internal Medicine Work Phone: Comment on above: PATIENT WAS FASTINGC linical Information: ADD DRAW FEE [id number] ADD J 26691 PERFORMED BY: Ink361 [id number] [facility] [id number] Protein mass conc 7.0 g/dL Normal 6.0-8.5 Compreh ensive Internal Medicine Work Phone: Comment on above: PATIENT WAS FASTINGC linical Information: ADD DRAW FEE [id number] ADD J 71583 PERFORMED BY: [employer] [id number] [facility] [id number] Sodium molar conc 143 mmol/L Normal 135-145 Compreh ensive Internal Medicine Work Phone: Comment on above: PATIENT WAS FASTINGC linical Information: ADD DRAW FEE [id number] ADD J 22909 PERFORMED BY: [email or web address] [id number] [facility] [id number] Urea nitrogen mass conc 12 mg/dL Normal 5- [facility] Work Phone: Comment on above: PATIENT WAS FASTINGC linical Information: ADD DRAW FEE 134365 ADD J 00790 PERFORMED BY: [employer] [id number] [facility] [id number] Urea nitrogen/Creatinine mass ratio 12 mg/mg Normal 8- [facility] Work Phone: Comment on above: PATIENT WAS FASTINGC linical Information: ADD DRAW FEE [id number] ADD J 05135 PERFORMED BY: [employer] Swfids1268 [facility] [id number] PSA (PROSTATE SPECIFIC ANTIG EN) (V76.44)Ordered By: Delfina Boyd on 11-30-2008 Prostate specific Ag mass conc 0.3 ng/mL Normal 0.0-4.0 [facility] Work Phone: Comment on above: Kenna ECLIA methodol ogy. .According to the [place] [employer], PSA should beundetectable after radical prostatectomy. A PSA of less than0.5 ng/mL (or undetectable) is not likely to be associated withdisease recurrence within five years of treatment.Values obtained with different assay methods or kits cannot be usedinterchangeably. Results cannot be interpreted as absolute evidenceof the presence or absence of malignant disease. PATIENT WAS FASTINGP ERFORMED BY: LabHenry Ford Cottage Hospital6370 [facility] [id number] SOFT TISSUE NECK WITH CONTRA STOrdered By: Utilization Management Manager on 09-06-2008 SOFT TISSUE NECK WITH CONTRAST See Note Normal [facility] Work Phone: Comment on above: Exam Number: [id number] CT SOFT TISSUE NECK WITH CONTRAST: INDICATION: Parotid gland mass. FINDINGS: Contiguous contrast enhanced axial images of the neck at 2.5 mm increments was acquired following the IV administration of 100 mL of Isovue-300. Additional delayed imaging through the parotic glands are submitted for evaluation. There is a heterogeneous mass involving the right parotid gland with enhancing outer rim and both low and high attenuated regions measuring 3.4 cm with heterogeneous low and high attenuated areas. On the delayed imaging there is more homogeneous enhancement of the parotid mass lesion. No abnormal calcifications. There are nonpathological cervical lymph nodes which appear to be symmetric on the right and left side of the neck. Visualized paranasal sinuses clear. Submandibular glands and the left parotid gland unremarkable. IMPRESSION: There is a heterogeneously enhancing 3.4 cm right parotid gland mass which has more homogeneous enhancement on delayed imaging. No abnormal calcifications. No significant adenopathy. The etiology is unknown. Clinical correlation recommended. Reported By: LEONOR HUERTA M.D. LIPIDOrdered By: Aleksander blevins on 08-22-2008 Cholesterol in HDL mass conc 32 mg/dL Abnormal [facility] Work Phone: Comment on above: Reference Range HDL <40 mg/dL Low HDL Cholesterol HDL >or= 60 mg/dL High HDL Cholesterol Cholesterol in LDL mass conc 131 mg/dL Abnormal 0-130 [facility] Work Phone: Cholesterol in VLDL mass conc 43 mg/dL Abnormal 5-40 [facility] Work Phone: Cholesterol mass conc 206 mg/dL Abnormal Com prehensive Internal Medicine Work Phone: Comment on above: <200 mg/dL Desirable 200-240 mg/dL Borderline >240 mg/dL High Risk Triglyceride mass conc 217 mg/dL Abnormal [facility] Work Phone: Comment on above: Serum Triglycerides Reference Interval Normal <150 mg/dL Borderline high 150 - 199 mg/dL High 200 - 499 mg/dL Very High > or = 500 mg/dL L/S SPINE,MIN 4 VIEWSOrdered By: Utilization Management Manager on 12-27-2007 L/S SPINE,MIN 4 VIEWS See Note Normal Com prehensive Internal Medicine Work Phone: Comment on above: Exam Number: [id number] LUMBAR SPINE 5 VIEWS CLINICAL STATEMENTBack pain. COMPARISON STUDYDecetempe [facility] 2004 There are 5 lumbar-type vertebral bodies present. Vertebral bodyheight is maintained. There are chronic bilateral L5 spondylolysisdefects present. There is associated grade 1 anteriorspondylolisthesis of L5 with respect to S1. There is progress loss ofdisc space height at the L5-S1 level. There is minimalanterolisthesis of L5 with respect to L4 which has progressed in theinterval. The remainder of the disc spaces appear maintained. Atherosclerotic calcifications are shown within the aorta. There ismild degenerative disc change present at the L3-4 level. IMPRESSIONBilateral L5 spondylolysis with associated grade 1 anteriorspondylolisthesis of L5 with respect to L4 and S1. This has slightlyprogressed in the interval. There has also been progressivedegenerative loss of disc space height at the L5-S1 level. Theremainder of the findings appear relatively stable. Reported By: ROBIN WHEELER M.D. Exam Number: [id number] CHEST PA AND LATERAL CLINICAL STATEMENTChest and back pain. [facility]De[facility] 2006 There is mild scoliotic curvature of the thoracic spine. The heartsize is normal. There is no mediastinal widening. The central hilarvessels appear prominent but unchanged. No acute infiltrate, venouscongestion or pleural effusion is shown. There are degenerativechanges present within the dorsal spine. IMPRESSIONNo acute cardiopulmonary process. No significant interval change. Reported By: ROBIN WHEELER M.D. CHEST, PA AND LATERALOrdered By: Utilization Management Manager on 05-12-2007 CHEST, PA AND LATERAL See Note Normal Com prehensive Internal Medicine Work Phone: Comment on above: Exam Number: [id number] PA AND LATERAL CHEST HISTORY Being done for cough. FINDINGSCardiac configuration is normal. No acute infiltrate, effusion, orpneumothorax is noted. Vascularity is mildly prominent, thought to beon the basis of past congestive changes. No effusion, infiltrate, or pneumothorax is noted. There is some mild scoliosis lower thoracicspine with convexity to the right. There is probably little changefrom January 03, 2007. There are emphysematous changes. There is spurformation in the mid dorsal spine. IMPRESSION1. No acute change noted in the lungs. 2. Little if any change from January 03, 2007. Reported By: YAQUELIN MITCHELL M.D. CBC, Platelets & Auto Diff ( [id number])Ordered By: Delfina Boyd on 05-11-2007 Basophils #/vol (Bld) 0.0 {x10E3/uL} Normal 0.0-0.2 [facility] Work Phone: Comment on above: PATIENT NOT FASTINGC linical Information: ADD DRAW FEE [id number] ADD J0 [id number] PERFORMED BY: [employer] MediaNov[facility] [id number] Basophils (Bld) [#/Vol] 0.0 10*3/uL Normal 0.0-0.2 [facility]; [facility] Work Phone: Basophils/100 WBC (Bld) 0 % Normal 0-3 [facility] Work Phone: Comment on above: PATIENT NOT FASTINGC linical Information: ADD DRAW FEE [id number] ADD J0 3378 PERFORMED BY: [employer] MediaNov[facility] [id number] Eosinophils #/vol (Bld) 0.0 {x10E3/uL} Normal 0.0-0.4 [facility] Work Phone: Comment on above: PATIENT NOT FASTINGC linical Information: ADD DRAW FEE [id number] ADD J0 3378 PERFORMED BY: hearo.fmCentral Carolina Hospital [id number] Eosinophils (Bld) [#/Vol] 0.0 10*3/uL Normal 0.0-0.4 [facility]; [facility] Work Phone: Eosinophils/100 WBC (Bld) 0 % Normal 0-7 [facility] Work Phone: Comment on above: PATIENT NOT FASTINGC linical Information: ADD DRAW FEE [id number] ADD J0 [id number] PERFORMED BY: MIRIAM CorensicMargarita [address] [id number] Erythrocyte distribution width Ratio (RBC) 13.8 % Normal 11.7-15.0 [facility] Work Phone: Comment on above: PATIENT NOT FASTINGC linical Information: ADD DRAW FEE [id number] ADD J0 [id number] PERFORMED BY: MIRIAM [employer] [id number] Hematocrit Volume Fraction (Bld) 44.0 % Normal 36.0-50.0 [facility] Work Phone: Comment on above: PATIENT NOT FASTINGC linical Information: ADD DRAW FEE [id number] ADD J0 [id number] PERFORMED BY: MIRIAM [employer] [id number] Hemoglobin mass conc (Bld) 15.6 g/dL Normal 12.5-17.0 [facility] Work Phone: Comment on above: PATIENT NOT FASTINGC linical Information: ADD DRAW FEE [id number] ADD J0 [id number] PERFORMED BY: MIRIAM [employer] [id number] Lymphocytes #/vol (Bld) 2.7 {x10E3/uL} Normal 0.7-4.5 [facility] Work Phone: Comment on above: PATIENT NOT FASTINGC linical Information: ADD DRAW FEE [id number] ADD J0 [id number] PERFORMED BY: [employer] [id number] Lymphocytes (Bld) [#/Vol] 2.7 10*3/uL Normal 0.7-4.5 [facility]; [facility] Work Phone: Lymphocytes/100 WBC (Bld) 22 % Normal 14-46 [facility] Work Phone: Comment on above: PATIENT NOT FASTINGC linical Information: ADD DRAW FEE [id number] ADD J0 [id number] PERFORMED BY: MIRIAM [employer]nsic[address] [place] [id number] MCH Entitic mass (RBC) 33.6 pg Normal 27.0-34.0 [facility] Work Phone: Comment on above: PATIENT NOT FASTINGC linical Information: ADD DRAW FEE [id number] ADD J0 3378 PERFORMED BY: [facility]6370 [facility] [id number] MCHC mass conc (RBC) 35.4 g/dL Normal 32.0-36.0 [facility] Work Phone: Comment on above: PATIENT NOT FASTINGC linical Information: ADD DRAW FEE [id number] ADD J0 3378 PERFORMED BY: [address] [id number] MCV Entitic volume (RBC) 95 fL Normal 80-98 [facility] Work Phone: Comment on above: PATIENT NOT FASTINGC linical Information: ADD DRAW FEE [id number] ADD J0 3378 PERFORMED BY: [address] [id number] Monocytes #/vol (Bld) 0.9 {x10E3/uL} Normal 0.1-1.0 [facility] Work Phone: Comment on above: PATIENT NOT FASTINGC linical Information: ADD DRAW FEE [id number] ADD J0 3378 PERFORMED BY: [address] [id number] Monocytes (Bld) [#/Vol] 0.9 10*3/uL Normal 0.1-1.0 [facility]; [facility] Work Phone: Monocytes/100 WBC (Bld) 7 % Normal 4-13 [facility] Work Phone: Comment on above: PATIENT NOT FASTINGC linical Information: ADD DRAW FEE [id number] ADD J0 [id number] PERFORMED BY: [place] [id number] [facility] [id number] Neutrophils #/vol (Bld) 8.7 {x10E3/uL} Abnormal 1.8-7.8 [facility] Work Phone: Comment on above: PATIENT NOT FASTINGC linical Information: ADD DRAW FEE [id number] ADD J0 3378 PERFORMED BY: Ink361 [id number] [facility] [id number] Neutrophils (Bld) [#/Vol] 8.7 10*3/uL Abnormal 1.8-7.8 [facility]; [facility] Work Phone: Neutrophils/100 WBC (Bld) 71 % Normal 40-74 [facility] Work Phone: Comment on above: PATIENT NOT FASTINGC linical Information: ADD DRAW FEE [id number] ADD J0 3378 PERFORMED BY: Ink361 [employer] [facility] [id number] Platelets #/vol (Bld) 217 {x10E3/uL} Normal 140-415 [facility] Work Phone: Comment on above: PATIENT NOT FASTINGC linical Information: ADD DRAW FEE [id number] ADD J0 3378 PERFORMED BY: Ink361 [id number] [facility] [id number] Platelets (Bld) [#/Vol] 217 10*3/uL Normal 140-415 [facility]; [facility] Work Phone: RBC #/vol (Bld) 4.64 {x10E6/uL} Normal 4.10-5.60 Comp rehensive [facility] Work Phone: Comment on above: PATIENT NOT FASTINGC linical Information: ADD DRAW FEE [id number] ADD J0 3378 PERFORMED BY: Ink[id number] [place] [address] [id number] RBC (Bld) [#/Vol] 4.64 10*6/uL Normal 4.10-5.60 Compr ehensive [facility]; [facility] Work Phone: WBC #/vol (Bld) 12.2 {x10E3/uL} Abnormal 4.0-10.5 Comp rehensive [facility] Work Phone: Comment on above: PATIENT NOT FASTINGC linical Information: ADD DRAW FEE [id number] ADD J0 3378 PERFORMED BY: MIRIAM [employer] [id number] [facility] [id number] WBC (Bld) [#/Vol] 12.2 10*3/uL Abnormal 4.0-10.5 Compr [facility] Internal [facility]; [facility] Work Phone: Metabolic Panel, Comprehensi ve ([id number])Ordered By: Delfina Boyd on 05-11-2007 Albumin mass conc 4.2 g/dL Normal 3.5-5.5 Compreh [facility] Medicine Work Phone: Comment on above: PATIENT NOT FASTINGP ERFORMED BY: [facility] [id number] [facility] [id number] Albumin/Globulin mass ratio 1.6 {ratio} Normal 1.1-2.5 [facility] Work Phone: Comment on above: PATIENT NOT FASTINGP ERFORMED BY: MIRIAM [facility] [id number] [facility] [id number] ALP [Catalytic activity/Vol] 96 U/L Normal 25-150 [facility]; [facility] Work Phone: ALP enzyme act/vol 96 [iU]/L Normal 25-150 [facility] Work Phone: Comment on above: PATIENT NOT FASTINGP ERFORMED BY: MIRIAM [facility] [id number] [facility] [id number] ALT [Catalytic activity/Vol] 27 U/L Normal 0-55 [facility]; [facility] Work Phone: ALT enzyme act/vol 27 [iU]/L Normal 0-55 [facility] Medicine Work Phone: Comment on above: PATIENT NOT FASTINGP ERFORMED BY: CB [facility] [id number] [facility] [id number] AST [Catalytic activity/Vol] 26 U/L Normal 0-40 [facility]; [facility] Work Phone: AST enzyme act/vol 26 [iU]/L Normal 0-40 [facility] Work Phone: Comment on above: PATIENT NOT FASTINGP ERFORMED BY: MIRIAM [facility] [id number] [place] [facility] [place] [id number] Bilirubin mass conc 0.2 mg/dL Normal 0.1-1.2 Compr ehensive Internal Medicine Work Phone: Comment on above: PATIENT NOT FASTINGP ERFORMED BY: MIRIAM [facility] [id number] [address] [facility] [id number] Calcium mass conc 9.7 mg/dL Normal 8.5-10.6 Compreh ensive [facility] Work Phone: Comment on above: PATIENT NOT FASTINGP ERFORMED BY: CB [facility] [id number] [place] [facility] [id number] Chloride molar conc 103 mmol/L Normal 96-109 Compr ensive [facility] Work Phone: Comment on above: PATIENT NOT FASTINGP ERFORMED BY: MIRIAM [facility] [id number] [place] [facility] [id number] CO2 molar conc 26 mmol/L Normal 20-32 Comprehens randal Internal Medicine Work Phone: Comment on above: PATIENT NOT FASTINGP ERFORMED BY: MIRIAM [facility] [id number] [place] [facility] [id number] Creatinine mass conc 0.9 mg/dL Normal 0.5-1.5 [facility] Work Phone: Comment on above: PATIENT NOT FASTINGP ERFORMED BY: CB [facility] [id number] [facility] [id number] Globulin mass conc (S) 2.6 g/dL Normal 1.5-4.5 [facility] Work Phone: Comment on above: PATIENT NOT FASTINGP ERFORMED BY: CB [facility] [id number] [place] [facility] [id number] Glucose mass conc 75 mg/dL Normal 65-99 Compreh ensive [facility] Work Phone: Comment on above: PATIENT NOT FASTINGP ERFORMED BY: CB [facility] [id number] [place] [facility] [id number] Potassium molar conc 4.1 mmol/L Normal 3.5-5.5 Comp rehensive [facility] Work Phone: Comment on above: PATIENT NOT FASTINGP ERFORMED BY: MIRIAM Klein6370 [facility] [id number] Protein mass conc 6.8 g/dL Normal 6.0-8.5 Compreh ensive [facility] Work Phone: Comment on above: PATIENT NOT FASTINGP ERFORMED BY: MIRIAM [facility] [id number] [facility] [id number] Sodium molar conc 138 mmol/L Normal 135-148 Compreh ensive [facility] Work Phone: Comment on above: PATIENT NOT FASTINGP ERFORMED BY: MIRIAM Man [id number] [facility] [id number] Urea nitrogen mass conc 14 mg/dL Normal 5-26 [facility] Work Phone: Comment on above: PATIENT NOT FASTINGP ERFORMED BY: MIRIAM Man [id number] [facility] [id number] Urea nitrogen/Creatinine mass ratio 16 mg/mg Normal 8-27 [facility] Work Phone: Comment on above: PATIENT NOT FASTINGP ERFORMED BY: MIRIAM Man [id number] [facility] [id number] LIPIDOrdered By: System Salma blevins on 01-09-2007 Cholesterol in HDL mass conc 31 mg/dL Abnormal [facility] Work Phone: Comment on above: Reference Range HDL <40 mg/dL Low HDL Cholesterol HDL >or= 60 mg/dL High HDL Cholesterol Cholesterol in LDL mass conc 137 mg/dL Abnormal 0-130 [facility] Work Phone: Cholesterol in VLDL mass conc 26 mg/dL Normal 5-40 [facility] Work Phone: Cholesterol mass conc 194 mg/dL Normal Com prehensive [facility] Medicine Work Phone: Comment on above: <200 mg/dL Desirable 200-240 mg/dL Borderline >240 mg/dL High Risk Triglyceride mass conc 129 mg/dL Normal [facility] Work Phone: Comment on above: Serum Triglycerides Reference Interval Normal <150 mg/dL Borderline high 150 - 199 mg/dL High 200 - 499 mg/dL Very High > or = 500 mg/dL TSHOrdered By: System Manage r on 01-09-2007 Thyrotropin Qn 0.54 {uIU/mL} Normal 0.34-4.82 Compreh [facility] Internal Medicine Work Phone: CPK TOTALOrdered By: Utilization Management Manager on 01-04-2007 CPK TOTAL 110 U/L Normal 35-[address] [facility] Internal Medicine Work Phone: Comment on above: INDICATE CK '1', '2' , '3', OR 'R' FOR RANDOM: 3 CPK TOTAL 106 U/L Normal 35-[address] [facility] Internal Medicine Work Phone: Comment on above: INDICATE CK '1', '2' , '3', OR 'R' FOR RANDOM: 2 CPKMBOrdered By: System Salma blevins on 01-04-2007 CK.MB mass conc 1.2 ng/mL Normal 0.0-5.0 [facility] Internal Medicine Work Phone: Comment on above: CK-MB and RI Interpr etation MB Relative Index Non-AMI 5 5 > 4 INDICATE CK '1', '2' , '3', OR 'R' FOR RANDOM: 2 CK.MB mass conc 1.3 ng/mL Normal 0.0-5.0 [facility] Internal Medicine Work Phone: Comment on above: CK-MB and RI Interpr etation MB Relative Index Non-AMI 5 5 > 4 INDICATE CK '1', '2' , '3', OR 'R' FOR RANDOM: 3 TROPONIN-IOrdered By: Utilization Management Manager on 01-04-2007 Troponin I.cardiac mass conc ng/mL Normal [facility] Internal Medicine Work Phone: Comment on above: TROPONIN-I EXPECTED VALUES < 0.50 NEGATIVE 0.50 - 1.49 INDETERMINANT > OR = 1.50 SUGGEST [place] INDICATE CK '1', '2' , '3', OR 'R' FOR RANDOM: 2 INDICATE CK '1', '2' , '3', OR 'R' FOR RANDOM: 3 BMPOrdered By: System Manage r on 01-03-2007 Anion gap molar conc 9 mmol/L Normal 5-15 Comp rehensive Internal Medicine Work Phone: Comment on above: INDICATE CK '1', '2' , '3', OR 'R' FOR RANDOM: 1 Calcium mass conc 9.1 mg/dL Normal 8.5-10.1 Compreh ensive [facility] Work Phone: Comment on above: INDICATE CK '1', '2' , '3', OR 'R' FOR RANDOM: 1 Chloride molar conc 103 mmol/L Normal 98-107 Compr ensive [facility] Work Phone: Comment on above: INDICATE CK '1', '2' , '3', OR 'R' FOR RANDOM: 1 CO2 molar conc 28.1 mmol/L Normal 22.0-29.0 Comprehen [facility] Internal Medicine Work Phone: Comment on above: INDICATE CK '1', '2' , '3', OR 'R' FOR RANDOM: 1 Creatinine mass conc 0.9 mg/dL Normal 0.8-1.3 Comp rehensive [facility] Work Phone: Comment on above: INDICATE CK '1', '2' , '3', OR 'R' FOR RANDOM: 1 Glucose mass conc 95 mg/dL Normal 70-110 Compreh ensive [facility] Work Phone: Comment on above: INDICATE CK '1', '2' , '3', OR 'R' FOR RANDOM: 1 Potassium molar conc 4.1 mmol/L Normal 3.5-5.1 [facility] Work Phone: Comment on above: INDICATE CK '1', '2' , '3', OR 'R' FOR RANDOM: 1 Sodium molar conc 140 mmol/L Normal 136-145 Compreh ensive [facility] Work Phone: Comment on above: INDICATE CK '1', '2' , '3', OR 'R' FOR RANDOM: 1 Urea nitrogen mass conc 10 mg/dL Normal 7-18 [facility] Work Phone: Comment on above: INDICATE CK '1', '2' , '3', OR 'R' FOR RANDOM: 1 Urea nitrogen/Creatinine mass ratio 11.1 {RATIO} Normal 10-20 [facility] Work Phone: Comment on above: INDICATE CK '1', '2' , '3', OR 'R' FOR RANDOM: 1 CBCDOrdered By: System Manag er on 01-03-2007 Basophils/100 WBC (Bld) 0.3 % Normal 0-1 [facility] Work Phone: Eosinophils/100 WBC (Bld) 0.3 % Normal 0-5 [facility] Work Phone: Erythrocyte distribution width Ratio (RBC) 13.1 % Normal 11.6-14.6 [facility] Work Phone: Hematocrit Volume Fraction (Bld) 45.9 % Normal 40-54 [facility] Work Phone: Hemoglobin mass conc (Bld) 16.0 g/dL Normal 14.0-18.0 [facility] Work Phone: Lymphocytes/100 WBC (Bld) 21.3 % Normal 19-41 [facility] Work Phone: MCH Entitic mass (RBC) 32.8 pg Abnormal 27.0-32.0 [facility] Work Phone: MCHC mass conc (RBC) 34.8 g/dL Normal 32-36 [facility] Work Phone: MCV Entitic volume (RBC) 94.1 fL Abnormal 80-94 [facility] Work Phone: Monocytes/100 WBC (Bld) 8.0 % Normal 0-10 [facility] Work Phone: Neutrophils/100 WBC (Bld) 70.1 % Abnormal 47-70 [facility] Work Phone: Platelet mean volume Entitic volume (Bld) 8.6 fL Normal 6.5-12.0 Comprehensi Internal Medicine Work Phone: Platelets #/vol (Bld) 232 10*3/uL Normal 150-450 Co mprehensive [facility] Work Phone: RBC #/vol (Bld) 4.88 {M/mm3} Normal 4.6-6.2 Compreh ensive [facility] Work Phone: WBC #/vol (Bld) 9.9 10*3/uL Normal 4.4-11.0 Comprehe nsive Internal Medicine Work Phone: CPK TOTALOrdered By: Utilization Management Manager on 01-03-2007 CPK TOTAL 125 U/L Normal 35-232 [facility] Work Phone: Comment on above: INDICATE CK '1', '2' , '3', OR 'R' FOR RANDOM: 1 CPKMBOrdered By: System Salma blevins on 01-03-2007 CK.MB mass conc 1.5 ng/mL Normal 0.0-5.0 Comprehen sive Internal Medicine Work Phone: Comment on above: CK-MB and RI Interpr etation MB Relative Index Non-AMI 5 5 > 4 INDICATE CK '1', '2' , '3', OR 'R' FOR RANDOM: 1 PTTOrdered By: System Manage r on 01-03-2007 aPTT Coag time (Bld) 31.3 s Normal 24.6-36.6 Comp rehensive Internal Medicine Work Phone: TROPONIN-IOrdered By: Utilization Management Manager on 01-03-2007 Troponin I.cardiac mass conc ng/mL Normal [facility] Work Phone: Comment on above: TROPONIN-I EXPECTED VALUES < 0.50 NEGATIVE 0.50 - 1.49 INDETERMINANT > OR = 1.50 SUGGEST [place] COMMENTS: ROOM 1 INDICATE CK '1', '2' , '3', OR 'R' FOR RANDOM: 1 Urinalysis, Office ([id number])Or dered By: Elana Gupta on 12-31-2006 Bilirubin Ql (U) Negative Normal Comprehe nsive Internal Medicine Work Phone: Glucose Test strip mass conc (U) Negative Normal [facility] Work Phone: Hemoglobin Ql (U) Negative Normal Compreh ensive [facility] Work Phone: Ketones Ql (U) Negative Normal Comprehens randal [facility] Work Phone: Leukocyte esterase Test strip Ql (U) Negative Normal [facility] Work Phone: Nitrite Ql (U) Negative Normal Comprehens randal [facility] Work Phone: pH (U) 6.5 [pH] Normal [facility] Work Phone: Protein Ql (U) Negative Normal Comprehens randal [facility] Work Phone: Specific gravity Relative Density (U) 1.005 1 Normal Comprehensi ve Internal Medicine Work Phone: Urobilinogen mass/time (24H U) Normal Normal [facility] Work Phone: Urinalysis, Office ([id number])on 12-31-2006 Bilirubin Ql (U) Negative Normal Comprehe nsive [facility]; [facility] Work Phone: Glucose Test strip (U) [Mass/Vol] Negative Normal [facility]; [facility] Work Phone: Hemoglobin Ql (U) Negative Normal Compreh ensive [facility]; [facility] Work Phone: Ketones Ql (U) Negative Normal Comprehens randal [facility]; [facility] Work Phone: Leukocyte esterase Test strip Ql (U) Negative Normal [facility]; [facility] Work Phone: Nitrite Ql (U) Negative Normal Comprehens randal [facility]; [facility] Work Phone: Protein Ql (U) Negative Normal Comprehens randal [facility]; [facility] Work Phone: CULTURE, THROATOrdered By: Dereck stylestem Sports Announcer on 12-16-2006 CULTURE, THROAT See Note Normal Comprehen sive Internal Medicine Work Phone: Comment on above: No beta-hemolytic st reptococcus isolated. AMOUNT GROWTH 2+ ORGANISM 1: YEAST LIKE ORGANISM Rapid Strep Test, Office (40 [phone])Ordered By: ANTHONY BANKS on 12-16-2006 S. pyogenes Ag EIA Ql (Throat) Negative Normal [facility]; [facility] Work Phone: S. pyogenes Ag IA Ql (Unsp spec) Negative Normal [facility] Work Phone: No Panel Information [facility] Vital Signs Date Time Vital Sign Value Performing Clinician Facility 08-27-2022 06:06-0400 SaO2% (BldA) [Mass fraction] 95 % [facility] 08-27-2022 05:59-0400 Body height 172.[address] [facility] 08-27-2022 05:59-0400 Body mass index (BMI) [Ratio] 33.2 kg/m2 [facility] 08-27-2022 05:59-0400 Body temperature 98.4 [degF] [facility] 08-27-2022 05:59-0400 Body weight 99.[address] [facility] 08-27-2022 05:59-0400 Diastolic blood pressure 83 mm[Hg] [facility] 08-27-2022 05:59-0400 Heart rate 88 /min [facility] 08-27-2022 05:59-0400 Respiratory rate 16 /min [facility] 08-27-2022 05:59-0400 Systolic blood pressure 183 mm[Hg] [facility] 05-16-2022 10:42-0500 Body height 172.72 cm [facility]; [facility] Work Phone: 05-16-2022 10:42-0500 Body mass index (BMI) [Ratio] 36.55 kg/m2 [facility]; [facility] Work Phone: 05-16-2022 10:42-0500 Body surface area Derived from formula 2.21 m2 [facility]; [facility] Work Phone: 05-16-2022 10:42-0500 Body temperature 96.6 [degF] [facility]; [facility] Work Phone: 05-16-2022 10:42-0500 Body weight 109.03 kg [facility]; [facility] Work Phone: 05-16-2022 10:42-0500 Diastolic blood pressure 68 mm[Hg] [facility]; [facility] Work Phone: 05-16-2022 10:42-0500 Heart rate 88 /min [facility]; [facility] Work Phone: 05-16-2022 10:42-0500 Respiratory rate 18 /min [facility]; [facility] Work Phone: 05-16-2022 10:42-0500 SaO2% (BldA) [Mass fraction] 96 % [facility]; [facility] Work Phone: 05-16-2022 10:42-0500 Systolic blood pressure 118 mm[Hg] [facility]; [facility] Work Phone: 02-14-2022 09:53-0400 Body height 172.72 cm Erica Yip MA [facility]; [facility] Work Phone: 02-14-2022 09:53-0400 Body mass index (BMI) [Ratio] 36.58 kg/m2 Erica Yip MA [facility]; [facility] Work Phone: 02-14-2022 09:53-0400 Body surface area Derived from formula 2.21 m2 Erica Yip MA [facility]; [facility] Work Phone: 02-14-2022 09:53-0400 Body temperature 97.7 [degF] Erica Yip MA [facility]; [facility] Work Phone: 02-14-2022 09:53-0400 Body weight 109.14 kg Erica Yip MA [facility]; [facility] Work Phone: 02-14-2022 09:53-0400 Diastolic blood pressure 90 mm[Hg] Erica Yip MA [facility]; [facility] Work Phone: 02-14-2022 09:53-0400 Heart rate 97 /min Erica Yip MA [facility]; [facility] Work Phone: 02-14-2022 09:53-0400 Respiratory rate 17 /min Erica Yip MA [facility]; [facility] Work Phone: 02-14-2022 09:53-0400 SaO2% (BldA) [Mass fraction] 95 % Erica Yip MA [facility]; [facility] Work Phone: 02-14-2022 09:53-0400 Systolic blood pressure 140 mm[Hg] Erica Yip MA [facility]; [facility] Work Phone: 01-22-2022 15:15-0400 Body height 172.7 cm Bao Peralta MD Work Phone: [facility] 01-22-2022 15:15-0400 Body weight 106.59 kg Bao Peralta MD Work Phone: [facility] 01-22-2022 15:15-0400 Respiratory rate 18 /min Bao Peralta MD Work Phone: [facility] 12-18-2021 14:39-0400 Body height 174 cm Bao Peralta MD Work Phone: [facility] 12-18-2021 14:39-0400 Body temperature 98.2 [degF] Bao Peralta MD Work Phone: [facility] 12-18-2021 14:39-0400 Body weight 106.59 kg Bao Peralta MD Work Phone: [facility] 12-06-2021 19:47-0400 Diastolic blood pressure 86 mm[Hg] [facility] Work Phone: 12-06-2021 19:47-0400 Heart rate 85 /min [facility] Work Phone: 12-06-2021 19:47-0400 Respiratory rate 18 /min [facility] Work Phone: 12-06-2021 19:47-0400 SaO2% (BldA) [Mass fraction] 95 % [facility] Work Phone: 12-06-2021 19:47-0400 Systolic blood pressure 135 mm[Hg] [facility] Work Phone: 12-06-2021 19:16-0400 Inhaled oxygen flow rate 2 L/min [facility] Work Phone: 12-06-2021 18:48-0400 Body temperature 98 [degF] [facility] Work Phone: 12-06-2021 15:45-0400 Body height 172.[address] [facility] Work Phone: 12-06-2021 15:45-0400 Body mass index (BMI) [Ratio] 37.9 kg/m2 [facility] Work Phone: 12-06-2021 15:45-0400 Body weight 113.[address] [facility] Work Phone: 11-13-2021 09:21-0400 Body height 172.72 cm Cindy Chatterjee [facility]; [facility] Work Phone: 11-13-2021 09:21-0400 Body mass index (BMI) [Ratio] 36.58 kg/m2 Cindy Mccabeius [facility]; [facility] Work Phone: 11-13-2021 09:21-0400 Body surface area Derived from formula 2.21 m2 Cindy Mccabeius [facility]; [facility] Work Phone: 11-13-2021 09:21-0400 Body weight 109.14 kg Cindy Chatterjee [facility]; [facility] Work Phone: 08-09-2021 09:01-0500 Body height 172.72 cm Hayden Tierney LPN [facility]; [facility] Work Phone: 08-09-2021 09:01-0500 Body mass index (BMI) [Ratio] 36.58 kg/m2 Hayden Tierney LPN [facility]; [facility] Work Phone: 08-09-2021 09:01-0500 Body surface area Derived from formula 2.21 m2 Hayden Tierney LPN [facility]; [facility] Work Phone: 08-09-2021 09:01-0500 Body temperature 97.8 [degF] Hayden Tierney LPN [facility]; [facility] Work Phone: 08-09-2021 09:01-0500 Body weight 109.14 kg Hayden Tierney LPN [facility]; [facility] Work Phone: 08-09-2021 09:01-0500 Diastolic blood pressure 84 mm[Hg] Hayden Tierney LPN [facility]; [facility] Work Phone: 08-09-2021 09:01-0500 Heart rate 88 /min Hayden Tierney LPN [facility]; [facility] Work Phone: 08-09-2021 09:01-0500 Respiratory rate 16 /min Hayden Tierney LPN [facility]; [facility] Work Phone: 08-09-2021 09:01-0500 SaO2% (BldA) [Mass fraction] 91 % Hayden Tierney LPN [facility]; [facility] Work Phone: 08-09-2021 09:01-0500 Systolic blood pressure 162 mm[Hg] Hayden Tierney LPN [facility]; [facility] Work Phone: 05-10-2021 10:24-0500 Body height 172.72 cm Hayden Tierney LPN [facility]; [facility] Work Phone: 05-10-2021 10:24-0500 Body mass index (BMI) [Ratio] 36.49 kg/m2 Hayden Tierney LPN [facility]; [facility] Work Phone: 05-10-2021 10:24-0500 Body surface area Derived from formula 2.21 m2 Hayden Tierney LPN [facility]; [facility] Work Phone: 05-10-2021 10:24-0500 Body temperature 97.6 [degF] Hayden Tierney LPN [facility]; [facility] Work Phone: 05-10-2021 10:24-0500 Body weight 108.86 kg Hayden Tierney LPN [facility]; [facility] Work Phone: 05-10-2021 10:24-0500 Diastolic blood pressure 82 mm[Hg] Hayden Tierney LPN [facility]; [facility] Work Phone: 05-10-2021 10:24-0500 Heart rate 102 /min Hayden Tierney LPN [facility]; [facility] Work Phone: 05-10-2021 10:24-0500 Respiratory rate 16 /min Hayden Tierney LPN [facility]; [facility] Work Phone: 05-10-2021 10:24-0500 SaO2% (BldA) [Mass fraction] 92 % Hayden Tierney LPN [facility]; [facility] Work Phone: 05-10-2021 10:24-0500 Systolic blood pressure 140 mm[Hg] Hayden Tiereny LPN [facility]; [facility] Work Phone: 09-19-2020 07:46-0400 BMI (Body Mass Index) 35.88 kg/m2 Hayden Tierney LPN [facility]; [facility] Work Phone: 09-19-2020 07:46-0400 Body Temperature 97.1 [degF] Hayden Tierney LPN [facility]; [facility] Work Phone: Comment on above: Method: Infrared 09-19-2020 07:46-0400 Body weight 107.05 kg Hayden Tierney LPN [facility]; [facility] Work Phone: 09-19-2020 07:46-0400 BP Diastolic 82 mm[Hg] Hayden Tierney LPN [facility]; [facility] Work Phone: Comment on above: Patient Position: Sitting; Cuff Location : Left Arm; Cuff Size: Standard 09-19-2020 07:46-0400 BP Systolic 150 mm[Hg] Hayden Tierney LPN [facility]; [facility] Work Phone: Comment on above: Patient Position: Sitting; Cuff Location : Left Arm; Cuff Size: Standard 09-19-2020 07:46-0400 BSA (Body Surface Area) 2.19 m2 Hayden Tierney LPN [facility]; [facility] Work Phone: 09-19-2020 07:46-0400 Height 172.72 cm Hayden Tierney LPN [facility]; [facility] Work Phone: 09-19-2020 07:46-0400 Pulse (Heart Rate) 94 /min Hayden Tierney REGISTERED NURSE PRACTITIONER [facility]; [facility] Work Phone: Comment on above: Pattern: Regular 09-19-2020 07:46-0400 Pulse Oximetry 92 % Breanna Castañeda [facility]; [facility] Work Phone: Comment on above: Room air 09-19-2020 07:46-0400 Respiratory Rate 18 /min Hayden Tierney REGISTERED NURSE PRACTITIONER [facility]; [facility] Work Phone: Comment on above: Pattern: Unlabored 09-19-2020 07:46-0400 SaO2% (BldA) [Mass fraction] 92 % Hayden Tierney LPN [facility]; [facility] Work Phone: 05-21-2020 08:30-0500 BMI (Body Mass Index) 34.97 kg/m2 Breanna Castañeda [employer] Work Phone: [facility]; [facility] Work Phone: 05-21-2020 08:30-0500 Body weight 104.34 kg Breanna Castañeda [employer]ION MANAGER Work Phone: [facility]; [facility] Work Phone: 05-21-2020 08:30-0500 BP Diastolic 80 mm[Hg] Breanna Castañeda [employer] MANAGER Work Phone: [facility]; [facility] Work Phone: Comment on above: Patient Position: Supine; Cuff Location: Right Arm; Cuff Size: Standard 05-21-2020 08:30-0500 BP Systolic 136 mm[Hg] Breanna Castañeda DISTRICT [employer] PREVENTION MANAGER Work Phone: [facility]; [facility] Work Phone: Comment on above: Patient Position: Supine; Cuff Location: Right Arm; Cuff Size: Standard 05-21-2020 08:30-0500 BSA (Body Surface Area) 2.17 m2 Breanna Castañeda DISTRICT [employer]ION MANAGER Work Phone: [facility]; [facility] Work Phone: 05-21-2020 08:30-0500 Height 172.72 cm Breanna Castañeda DISTRICT [employer] PRE[employer]ION MANAGER Work Phone: [facility]; [facility] Work Phone: 02-15-2020 11:22-0400 BMI (Body Mass Index) 34.97 kg/m2 Linda Burdick LPN [facility] Medicine Work Phone: 02-15-2020 11:22-0400 Body Temperature 97.9 [degF] Linda Burdick LPN [facility] Work Phone: 02-15-2020 11:22-0400 Body weight 104.34 kg Linda Burdick REGISTERED NURSE PRACTITIONER [facility] Medicine Work Phone: 02-15-2020 11:22-0400 BP Diastolic 90 mm[Hg] Linda Burdick REGISTERED NURSE PRACTITIONER [facility] Work Phone: Comment on above: Patient Position: Sitting; Cuff Location : Left Arm; Cuff Size: Standard 02-15-2020 11:22-0400 BP Systolic 138 mm[Hg] Linda Burdick LPN [facility] Work Phone: Comment on above: Patient Position: Sitting; Cuff Location : Left Arm; Cuff Size: Standard 02-15-2020 11:22-0400 BSA (Body Surface Area) 2.17 m2 Linda Burdick LPN [facility] Work Phone: 02-15-2020 11:22-0400 Height 172.72 cm Linda Burdick REGISTERED NURSE PRACTITIONER [facility] Work Phone: 02-15-2020 11:22-0400 Pulse (Heart Rate) 77 /min Linda Burdick LPN [facility] Work Phone: Comment on above: Pattern: Regular 02-15-2020 11:22-0400 Pulse Oximetry 94 % Breanna Castañeda [facility] Work Phone: Comment on above: Room air 02-15-2020 11:22-0400 Respiratory Rate 16 /min Linda Burdick LPN [facility] Work Phone: Comment on above: Pattern: Unlabored 02-15-2020 11:22-0400 SaO2% (BldA) [Mass fraction] 94 % Linda Burdick LPN [facility]; [facility] Work Phone: 02-06-2020 08:43-0400 BMI (Body Mass Index) 34.97 kg/m2 Hayden Tierney LPN [facility] Work Phone: 02-06-2020 08:43-0400 Body Temperature 97.8 [degF] Hayden Tierney LPN [facility] Medicine Work Phone: Comment on above: Method: Infrared 02-06-2020 08:43-0400 Body weight 104.34 kg Hayden Tierney LPN [facility] Work Phone: 02-06-2020 08:43-0400 BP Diastolic 72 mm[Hg] Hayden Tierney LPN [facility] Internal Medicine Work Phone: Comment on above: Patient Position: Sitting; Cuff Location : Left Arm; Cuff Size: Standard 02-06-2020 08:43-0400 BP Systolic 124 mm[Hg] Hayden Tierney LPN [facility] Internal Medicine Work Phone: Comment on above: Patient Position: Sitting; Cuff Location : Left Arm; Cuff Size: Standard 02-06-2020 08:43-0400 BSA (Body Surface Area) 2.17 m2 Hayden Tierney LPN [facility] Medicine Work Phone: 02-06-2020 08:43-0400 Height 172.72 cm Hayden Tierney LPN [facility] Work Phone: 02-06-2020 08:43-0400 Pulse (Heart Rate) 103 /min Hayden Tierney LPN [facility] Work Phone: Comment on above: Pattern: Regular 02-06-2020 08:43-0400 Pulse Oximetry 94 % Breanna Castaeñda [facility] Internal Medicine Work Phone: Comment on above: Room air 02-06-2020 08:43-0400 Respiratory Rate 17 /min Hayden Tierney LPN [facility] Work Phone: Comment on above: Pattern: Unlabored 02-06-2020 08:43-0400 SaO2% (BldA) [Mass fraction] 94 % Hayden Tierney LPN [facility]; [facility] Work Phone: 11-04-2019 07:33-0400 BMI (Body Mass Index) 34.98 kg/m2 Hayden Tierney LPN [facility] Work Phone: 11-04-2019 07:33-0400 Body Temperature 97.1 [degF] Hayden Tierney LPN [facility] Work Phone: Comment on above: Method: Temporal 11-04-2019 07:33-0400 Body weight 104.35 kg Hayden Tierney LPN [facility] Work Phone: 11-04-2019 07:33-0400 BP Diastolic 82 mm[Hg] Hayden Tierney LPN [facility] Work Phone: Comment on above: Patient Position: Sitting; Cuff Location : Left Arm; Cuff Size: Standard 11-04-2019 07:33-0400 BP Systolic 140 mm[Hg] Hayden Tierney LPN [facility] Work Phone: Comment on above: Patient Position: Sitting; Cuff Location : Left Arm; Cuff Size: Standard 11-04-2019 07:33-0400 BSA (Body Surface Area) 2.17 m2 Hayden Tierney LPN [facility] Work Phone: 11-04-2019 07:33-0400 Height 172.72 cm Hayden Tierney LPN [facility] Work Phone: 11-04-2019 07:33-0400 Pulse (Heart Rate) 94 /min Hayden Tierney LPN [facility] Work Phone: Comment on above: Pattern: Regular 11-04-2019 07:33-0400 Pulse Oximetry 95 % Breanna Castañeda [facility] Work Phone: Comment on above: Room air 11-04-2019 07:33-0400 Respiratory Rate 16 /min Hayden Tierney LPN [facility] Work Phone: Comment on above: Pattern: Unlabored 11-04-2019 07:33-0400 SaO2% (BldA) [Mass fraction] 95 % Hayden Tierney LPN [facility]; [facility] Work Phone: 08-23-2019 07:47-0400 BMI (Body Mass Index) 34.97 kg/m2 Hayden Tierney LPN [facility] Work Phone: 08-23-2019 07:47-0400 Body Temperature 97.2 [degF] Hayden Tierney LPN [facility] Work Phone: Comment on above: Method: Temporal 08-23-2019 07:47-0400 Body weight 104.33 kg Hayden Tierney LPN [facility] Work Phone: 08-23-2019 07:47-0400 BP Diastolic 80 mm[Hg] Hayden Tierney LPN [facility] Work Phone: Comment on above: Patient Position: Sitting; Cuff Location : Left Arm; Cuff Size: Standard 08-23-2019 07:47-0400 BP Systolic 138 mm[Hg] Hayden Tierney LPN [facility] Work Phone: Comment on above: Patient Position: Sitting; Cuff Location : Left Arm; Cuff Size: Standard 08-23-2019 07:47-0400 BSA (Body Surface Area) 2.17 m2 Hayden Tierney LPN [facility] Work Phone: 08-23-2019 07:47-0400 Height 172.72 cm Hayden Tierney LPN [facility] Work Phone: 08-23-2019 07:47-0400 Pulse (Heart Rate) 82 /min Hayden Tierney LPN [facility] Work Phone: Comment on above: Pattern: Regular 08-23-2019 07:47-0400 Pulse Oximetry 92 % Breanna aGrry [facility] Medicine Work Phone: Comment on above: Room air 08-23-2019 07:47-0400 Respiratory Rate 18 /min Hayden Tierney KIANNA [facility] Work Phone: Comment on above: Pattern: Unlabored 08-23-2019 07:47-0400 SaO2% (BldA) [Mass fraction] 92 % Hayden Tierney LPN [facility]; [facility] Work Phone: 08-15-2019 10:00-0400 BMI (Body Mass Index) 34.12 kg/m2 Pili Slarb REGISTERED NURSE PRACTITIONER [facility] Work Phone: 08-15-2019 10:00-0400 Body Temperature 98.2 [degF] Piil Slarb REGISTERED NURSE PRACTITIONER [facility] Work Phone: 08-15-2019 10:00-0400 Body weight 101.78 kg Pili Slarb REGISTERED NURSE PRACTITIONER [facility] Work Phone: 08-15-2019 10:00-0400 BP Diastolic 82 mm[Hg] Pili Slarb REGISTERED NURSE PRACTITIONER [facility] Work Phone: Comment on above: Patient Position: Sitting; Cuff Location : Left Arm; Cuff Size: Standard 08-15-2019 10:00-0400 BP Systolic 142 mm[Hg] Pili Slarb REGISTERED NURSE PRACTITIONER [facility] Work Phone: Comment on above: Patient Position: Sitting; Cuff Location : Left Arm; Cuff Size: Standard 08-15-2019 10:00-0400 BSA (Body Surface Area) 2.15 m2 Pili Slarb REGISTERED NURSE PRACTITIONER [facility] Work Phone: 08-15-2019 10:00-0400 Height 172.72 cm Pili Slarb REGISTERED NURSE PRACTITIONER [facility] Work Phone: 08-15-2019 10:00-0400 Pulse (Heart Rate) 89 /min Pili Slarb REGISTERED NURSE PRACTITIONER [facility] Work Phone: Comment on above: Pattern: Regular 08-15-2019 10:00-0400 Pulse Oximetry 94 % Breanna Garry [facility] Internal Medicine Work Phone: Comment on above: Room air 08-15-2019 10:00-0400 Respiratory Rate 16 /min Pili Ferreira LPN [facility] Work Phone: Comment on above: Pattern: Unlabored 08-15-2019 10:00-0400 SaO2% (BldA) [Mass fraction] 94 % Pili Ferreira LPN [facility]; [facility] Work Phone: 07-12-2019 08:45-0500 BMI (Body Mass Index) 34.97 kg/m2 Hayden Tierney LPN [facility] Work Phone: 07-12-2019 08:45-0500 Body Temperature 97.6 [degF] Hayden Tierney LPN [facility] Work Phone: Comment on above: Method: Temporal 07-12-2019 08:45-0500 Body weight 104.33 kg Hayden Tierney LPN [facility] Work Phone: 07-12-2019 08:45-0500 BP Diastolic 80 mm[Hg] Hayden Tierney LPN [facility] Work Phone: Comment on above: Patient Position: Sitting; Cuff Location : Left Arm; Cuff Size: Standard 07-12-2019 08:45-0500 BP Systolic 142 mm[Hg] Hayden Tierney LPN [facility] Work Phone: Comment on above: Patient Position: Sitting; Cuff Location : Left Arm; Cuff Size: Standard 07-12-2019 08:45-0500 BSA (Body Surface Area) 2.17 m2 Hayden Tierney LPN [facility] Work Phone: 07-12-2019 08:45-0500 Height 172.72 cm Hayden Tierney LPN [facility] Work Phone: 07-12-2019 08:45-0500 Pulse (Heart Rate) 90 /min Hayden Tierney LPN [facility] Work Phone: Comment on above: Pattern: Regular 07-12-2019 08:45-0500 Pulse Oximetry 92 % Breanna Garry [facility] Internal Medicine Work Phone: Comment on above: Room air 07-12-2019 08:45-0500 Respiratory Rate 16 /min Hayden Niall HUTCHISON [facility] Work Phone: Comment on above: Pattern: Unlabored 07-12-2019 08:45-0500 SaO2% (BldA) [Mass fraction] 92 % Hayden Tierney KIANNA [facility]; [facility] Work Phone: 07-05-2019 07:59-0500 BMI (Body Mass Index) 35.15 kg/m2 Lindasvetlana Burdick KIANNA [facility] Work Phone: 07-05-2019 07:59-0500 Body Temperature 97.8 [degF] Lindasvetlana Vazquezrachel HUTCHISON [facility] Work Phone: Comment on above: Method: Temporal 07-05-2019 07:59-0500 Body weight 104.87 kg Linda Heavenly LPN [facility] Work Phone: 07-05-2019 07:59-0500 BP Diastolic 80 mm[Hg] Linda Heavenly LPN [facility] Work Phone: Comment on above: Patient Position: Sitting; Cuff Location : Left Arm; Cuff Size: Standard 07-05-2019 07:59-0500 BP Systolic 140 mm[Hg] Lindasvetlana Burdick KIANNA [facility] Work Phone: Comment on above: Patient Position: Sitting; Cuff Location : Left Arm; Cuff Size: Standard 07-05-2019 07:59-0500 BSA (Body Surface Area) 2.17 m2 Linda Heavenly LPN [facility] Work Phone: 07-05-2019 07:59-0500 Height 172.72 cm Linda Heavenly LPN [facility] Work Phone: 07-05-2019 07:59-0500 Pulse (Heart Rate) 83 /min Lindasvetlana Burdick KIANNA [facility] Work Phone: Comment on above: Pattern: Regular 07-05-2019 07:59-0500 Pulse Oximetry 91 % Breanna Castañeda [facility] Medicine Work Phone: Comment on above: Room air 07-05-2019 07:59-0500 Respiratory Rate 16 /min Lindasvetlana Burdick KIANNA [facility] Work Phone: Comment on above: Pattern: Unlabored 07-05-2019 07:59-0500 SaO2% (BldA) [Mass fraction] 91 % Lindasvetlana Burdick KIANNA [facility]; [facility] Work Phone: 07-20-2018 14:52-0500 BMI (Body Mass Index) 35.15 kg/m2 Hayden Tierney LPN [facility] Work Phone: 07-20-2018 14:52-0500 Body Temperature 97 [degF] Hyaden Tierney LPN [facility] Medicine Work Phone: Comment on above: Method: Temporal 07-20-2018 14:52-0500 Body weight 104.87 kg Hayden Tierney LPN [facility] Work Phone: 07-20-2018 14:52-0500 BP Diastolic 86 mm[Hg] Hayden Tierney LPN [facility] Work Phone: Comment on above: Patient Position: Sitting; Cuff Location : Left Arm; Cuff Size: Standard 07-20-2018 14:52-0500 BP Systolic 152 mm[Hg] Hayden Tierney LPN [facility] Medicine Work Phone: Comment on above: Patient Position: Sitting; Cuff Location : Left Arm; Cuff Size: Standard 07-20-2018 14:52-0500 BSA (Body Surface Area) 2.17 m2 Hayden Tierney LPN [facility] Work Phone: 07-20-2018 14:52-0500 Height 172.72 cm Hayden Tierney LPN [facility] Work Phone: 07-20-2018 14:52-0500 Pulse (Heart Rate) 98 /min Hayden Tierney LPN [facility] Work Phone: Comment on above: Pattern: Regular 07-20-2018 14:52-0500 Pulse Oximetry 93 % Breanna Castañeda [facility] Medicine Work Phone: Comment on above: Room air 07-20-2018 14:52-0500 Respiratory Rate 18 /min Hayden Tierney KIANNA [facility] Work Phone: Comment on above: Pattern: Unlabored 07-20-2018 14:52-0500 SaO2% (BldA) [Mass fraction] 93 % Hayden Tierney REGISTERED NURSE PRACTITIONER [facility]; [facility] Work Phone: 07-20-2018 14:52-0500 Weight 104.87 kg Breanna Castañeda [facility] Work Phone: 03-23-2018 14:30-0400 BMI (Body Mass Index) 35.29 kg/m2 Hattie Ellis [email or web address] Internal Medicine Work Phone: 03-23-2018 14:30-0400 Body Temperature 97.7 [degF] Hattie Ellis [facility] Medicine Work Phone: Comment on above: Method: Temporal 03-23-2018 14:30-0400 Body weight 105.29 kg Hattie Ellis [facility] Medicine Work Phone: 03-23-2018 14:30-0400 BP Diastolic 88 mm[Hg] Hattie Ellis [facility] Medicine Work Phone: Comment on above: Patient Position: Sitting; Cuff Location : Left Arm; Cuff Size: Standard 03-23-2018 14:30-0400 BP Systolic 152 mm[Hg] Hattie Ellis [facility] Internal Medicine Work Phone: Comment on above: Patient Position: Sitting; Cuff Location : Left Arm; Cuff Size: Standard 03-23-2018 14:30-0400 BSA (Body Surface Area) 2.18 m2 Hattie Ellis [facility] Medicine Work Phone: 03-23-2018 14:30-0400 Height 172.72 cm Hattie Ellis [facility] Work Phone: 03-23-2018 14:30-0400 Pulse (Heart Rate) 78 /min Hattie Ellis [facility] Medicine Work Phone: Comment on above: Pattern: Regular 03-23-2018 14:30-0400 Pulse Oximetry 90 % Breanna Castañeda [facility] Work Phone: Comment on above: Room air 03-23-2018 14:30-0400 Respiratory Rate 18 /min Hattie Ellis [facility] Medicine Work Phone: Comment on above: Pattern: Unlabored 03-23-2018 14:30-0400 SaO2% (BldA) [Mass fraction] 90 % Hattie Ellis [facility]; [facility] Work Phone: 03-23-2018 14:300400 Weight 105.29 kg Breanna Castañeda [facility] Work Phone: 12-04-2017 14:090400 BMI (Body Mass Index) 34.36 kg/m2 Edith Pang [facility] Work Phone: 12-04-2017 14:040 Body Temperature 98.3 [degF] Edith Pang [facility] Medicine Work Phone: Comment on above: Method: Temporal 12-04-2017 14: Body weight 102.51 kg Edith Pang [facility] Work Phone: 12-04-2017 14:09-0400 BP Diastolic 70 mm[Hg] Edith Pang [facility] Medicine Work Phone: Comment on above: Patient Position: Sitting; Cuff Location : Left Arm; Cuff Size: Standard 12-04-2017 14:090400 BP Systolic 122 mm[Hg] Edith Pang [facility] Work Phone: Comment on above: Patient Position: Sitting; Cuff Location : Left Arm; Cuff Size: Standard 12-04-2017 14:090400 BSA (Body Surface Area) 2.15 m2 Edith Pang [facility] Work Phone: 12-04-2017 14:0400 Height 172.72 cm Edith Pang [facility] Work Phone: 12-04-2017 14:090400 Pulse (Heart Rate) 117 /min Edith Pang [facility] Medicine Work Phone: Comment on above: Pattern: Regular 12-04-2017 14:0400 Respiratory Rate 16 /min Edith Pang [facility] Work Phone: Comment on above: Pattern: Unlabored 12-04-2017 14:09-0400 Weight 102.51 kg Breanna Castañeda [facility] Work Phone: 11-20-2017 13:38-0400 BMI (Body Mass Index) 34.36 kg/m2 Pili Slarb REGISTERED NURSE PRACTITIONER [facility] Work Phone: 11-20-2017 13:38-0400 Body Temperature 97.4 [degF] Pili Slarb REGISTERED NURSE PRACTITIONER [facility] Work Phone: 11-20-2017 13:38-0400 Body weight 102.51 kg Pili Slarb REGISTERED NURSE PRACTITIONER [facility] Work Phone: 11-20-2017 13:38-0400 BP Diastolic 82 mm[Hg] Pili Slarb REGISTERED NURSE PRACTITIONER [facility] Work Phone: Comment on above: Patient Position: Sitting; Cuff Location : Left Arm; Cuff Size: Standard 11-20-2017 13:38-0400 BP Systolic 120 mm[Hg] Pili Slarb REGISTERED NURSE PRACTITIONER [facility] Work Phone: Comment on above: Patient Position: Sitting; Cuff Location : Left Arm; Cuff Size: Standard 11-20-2017 13:38-0400 BSA (Body Surface Area) 2.15 m2 Pili Slarb REGISTERED NURSE PRACTITIONER [facility] Work Phone: 11-20-2017 13:38-0400 Height 172.72 cm Pili Slarb REGISTERED NURSE PRACTITIONER [facility] Work Phone: 11-20-2017 13:38-0400 Pulse (Heart Rate) 83 /min Pili Slarb REGISTERED NURSE PRACTITIONER [facility] Work Phone: Comment on above: Pattern: Regular 11-20-2017 13:38-0400 Pulse Oximetry 94 % Breanna Castañeda [facility] Work Phone: Comment on above: Room air 11-20-2017 13:38-0400 Respiratory Rate 18 /min Pili Slarb REGISTERED NURSE PRACTITIONER [facility] Work Phone: Comment on above: Pattern: Unlabored 11-20-2017 13:38-0400 SaO2% (BldA) [Mass fraction] 94 % Pili Jhon HUTCHISON [facility]; [facility] Work Phone: 11-20-2017 13:38-0400 Weight 102.51 kg Breanna Castañeda [facility] Internal Medicine Work Phone: 09-01-2017 09:55-0400 BMI (Body Mass Index) 34.82 kg/m2 Cyn Springer RN [email or web address] Internal Medicine Work Phone: 09-01-2017 09:55-0400 Body Temperature 97.8 [degF] Cyn Springer RN [facility] Work Phone: Comment on above: Method: Temporal 09-01-2017 09:55-0400 Body weight 103.87 kg Cyn Springer RN [facility] Work Phone: 09-01-2017 09:55-0400 BP Diastolic 72 mm[Hg] Cyn Springer RN [facility] Work Phone: Comment on above: Patient Position: Sitting; Cuff Location : Left Arm; Cuff Size: Standard 09-01-2017 09:55-0400 BP Systolic 120 mm[Hg] Cyn Springer RN [facility] Work Phone: Comment on above: Patient Position: Sitting; Cuff Location : Left Arm; Cuff Size: Standard 09-01-2017 09:55-0400 BSA (Body Surface Area) 2.17 m2 Cyn Springer RN [facility] Work Phone: 09-01-2017 09:55-0400 Height 172.72 cm Cyn Springer RN [facility] Work Phone: 09-01-2017 09:55-0400 Pulse (Heart Rate) 81 /min Cyn Springer RN [facility] Work Phone: Comment on above: Pattern: Regular 09-01-2017 09:55-0400 Pulse Oximetry 92 % Breanna Castañeda [facility] Internal Medicine Work Phone: Comment on above: Room air 09-01-2017 09:55-0400 Respiratory Rate 17 /min Cyn Springer RN [facility] Work Phone: Comment on above: Pattern: Unlabored 09-01-2017 09:55-0400 SaO2% (BldA) [Mass fraction] 92 % Cyn Springer RN [facility]; [facility] Work Phone: 09-01-2017 09:55-0400 Weight 103.87 kg Breanna Castañeda [facility] Work Phone: 08-11-2017 10:34-0500 BMI (Body Mass Index) 34.36 kg/m2 Hayden Tierney LPN [facility] Work Phone: 08-11-2017 10:34-0500 Body Temperature 98.1 [degF] Hayden Tierney LPN [facility] Work Phone: Comment on above: Method: Oral 08-11-2017 10:34-0500 Body weight 102.51 kg Hayden Tierney LPN [facility] Work Phone: 08-11-2017 10:34-0500 BP Diastolic 82 mm[Hg] Hayden Tierney LPN [facility] Work Phone: Comment on above: Patient Position: Sitting; Cuff Location : Left Arm; Cuff Size: Standard 08-11-2017 10:34-0500 BP Systolic 124 mm[Hg] Hayden Tierney LPN [facility] Work Phone: Comment on above: Patient Position: Sitting; Cuff Location : Left Arm; Cuff Size: Standard 08-11-2017 10:34-0500 BSA (Body Surface Area) 2.15 m2 Hayden Tierney LPN [facility] Work Phone: 08-11-2017 10:34-0500 Height 172.72 cm Hayden Tierney LPN [facility] Work Phone: 08-11-2017 10:34-0500 Pulse (Heart Rate) 81 /min Hayden Tierney LPN [facility] Work Phone: Comment on above: Pattern: Regular 08-11-2017 10:34-0500 Pulse Oximetry 92 % Breanna Garry [facility] Internal Medicine Work Phone: Comment on above: Room air 08-11-2017 10:34-0500 Respiratory Rate 16 /min Hayden Tierney LPN [facility] Work Phone: Comment on above: Pattern: Unlabored 08-11-2017 10:34-0500 SaO2% (BldA) [Mass fraction] 92 % Hayden Tierney LPN [facility]; [facility] Work Phone: 08-11-2017 10:34-0500 Weight 102.51 kg Breanna Castañeda [facility] Work Phone: 08-11-2017 10:15-0500 BMI (Body Mass Index) 34.06 kg/m2 Cyn Springer RN [facility] Work Phone: 08-11-2017 10:15-0500 Body weight 101.61 kg Cyn Springer RN [facility] Work Phone: 08-11-2017 10:15-0500 BSA (Body Surface Area) 2.14 m2 Cyn Springer RN [facility] Work Phone: 08-11-2017 10:15-0500 Height 172.72 cm Cyn Springer RN [facility] Work Phone: 08-11-2017 10:15-0500 Weight 101.61 kg Breanna Castañeda [facility] Work Phone: 08-10-2017 15:01-0500 BMI (Body Mass Index) 34.06 kg/m2 Cyn Springer RN [facility] Work Phone: 08-10-2017 15:01-0500 Body Temperature 98.6 [degF] Cyn Springer RN [facility] Work Phone: Comment on above: Method: Temporal 08-10-2017 15:01-0500 Body weight 101.61 kg Cyn L Madi RN [facility] Work Phone: 08-10-2017 15:01-0500 BP Diastolic 84 mm[Hg] Cyn Springer RN [facility] Work Phone: Comment on above: Patient Position: Sitting; Cuff Location : Left Arm; Cuff Size: Standard 03-05-2018 15:01-0500 BP Systolic 148 mm[Hg] Cyn Springer RN [facility] Work Phone: Comment on above: Patient Position: Sitting; Cuff Location : Left Arm; Cuff Size: Standard 08-10-2017 15:01-0500 BSA (Body Surface Area) 2.14 m2 Cyn Springer RN [facility] Work Phone: 08-10-2017 15:01-0500 Height 172.72 cm Cyn Springer RN [facility] Work Phone: 08-10-2017 15:01-0500 Pulse (Heart Rate) 92 /min Cyn Springer RN [facility] Work Phone: Comment on above: Pattern: Regular 08-10-2017 15:01-0500 Pulse Oximetry 96 % Breanna Garry [facility] Work Phone: Comment on above: Room air 08-10-2017 15:01-0500 Respiratory Rate 16 /min Cyn Springer RN [facility] Work Phone: Comment on above: Pattern: Unlabored 08-10-2017 15:01-0500 SaO2% (BldA) [Mass fraction] 96 % Cyn Springer RN [facility]; [facility] Work Phone: 08-10-2017 15:01-0500 Weight 101.61 kg Breanna Castañeda [facility] Work Phone: 12-26-2016 13:03-0400 BMI (Body Mass Index) 33.86 kg/m2 Timothy BLACK [facility] Work Phone: 12-26-2016 13:03-0400 Body Temperature 97.4 [degF] Timothy BLACK [facility] Work Phone: 12-26-2016 13:03-0400 BP Diastolic 94 mm[Hg] Timothy BLACK [facility] Work Phone: 12-26-2016 13:03-0400 BP Systolic 140 mm[Hg] Timothy BLACK [facility] Work Phone: 12-26-2016 13:03-0400 Height 173.99 cm Timothy BLACK [facility] Work Phone: 12-26-2016 13:03-0400 Pulse (Heart Rate) 82 /min Timothy BLACK [facility] Work Phone: 12-26-2016 13:03-0400 Respiratory Rate 12 /min Timothy BLACK [facility] Work Phone: 12-26-2016 13:03-0400 Weight 102.51 kg Timothy BLACK [facility] Work Phone: 05-14-2016 10:45-0500 BMI (Body Mass Index) 34.06 kg/m2 Cyn Springer RN [email or web address] Internal Medicine Work Phone: 05-14-2016 10:45-0500 Body Temperature 97.2 [degF] Cyn Springer RN [facility] Work Phone: Comment on above: Method: Temporal 05-14-2016 10:45-0500 Body weight 101.61 kg Cyn Springer RN [facility] Work Phone: 05-14-2016 10:45-0500 BP Diastolic 80 mm[Hg] Cyn Springer RN [facility] Work Phone: Comment on above: Patient Position: Sitting; Cuff Location : Left Arm; Cuff Size: Standard 05-14-2016 10:45-0500 BP Systolic 146 mm[Hg] Cyn Springer RN [facility] Work Phone: Comment on above: Patient Position: Sitting; Cuff Location : Left Arm; Cuff Size: Standard 05-14-2016 10:45-0500 BSA (Body Surface Area) 2.14 m2 Cyn Springer RN [facility] Work Phone: 05-14-2016 10:45-0500 Height 172.72 cm Cyn Springer RN [facility] Work Phone: 05-14-2016 10:45-0500 Pulse (Heart Rate) 77 /min Cyn Springer RN [facility] Work Phone: Comment on above: Pattern: Regular 05-14-2016 10:45-0500 Pulse Oximetry 95 % Breanna Castañeda [facility] Internal Medicine Work Phone: Comment on above: Room air 05-14-2016 10:45-0500 Respiratory Rate 16 /min Cyn Springer RN [facility] Work Phone: Comment on above: Pattern: Unlabored 05-14-2016 10:45-0500 SaO2% (BldA) [Mass fraction] 95 % Cyn Springer RN [facility]; [facility] Work Phone: 05-14-2016 10:45-0500 Weight 101.61 kg Breanna Castañeda [facility] Internal [facility] Work Phone: 05-12-2016 15:22-0500 BSA (Body Surface Area) 2.15 m2 Timothy BLACK [facility] Work Phone: 01-15-2016 08:18-0400 BMI (Body Mass Index) 32.99 kg/m2 Cyn Springer RN [facility] [[email or web address] Internal Medicine Work Phone: 01-15-2016 08:18-0400 Body Temperature 97.8 [degF] Cyn Springer RN [facility] Internal Medicine Work Phone: Comment on above: Method: Temporal 01-15-2016 08:18-0400 Body weight 98.43 kg Cyn Springer RN [facility] Work Phone: 01-15-2016 08:18-0400 BP Diastolic 98 mm[Hg] Cyn Springer RN [facility] Work Phone: Comment on above: Patient Position: Sitting; Cuff Location : Left Arm; Cuff Size: Standard 01-15-2016 08:18-0400 BP Systolic 160 mm[Hg] Cyn Springer RN [facility] Work Phone: Comment on above: Patient Position: Sitting; Cuff Location : Left Arm; Cuff Size: Standard 01-15-2016 08:18-0400 BSA (Body Surface Area) 2.12 m2 Cyn Springer RN [facility] Work Phone: 01-15-2016 08:18-0400 Height 172.72 cm Cyn Springer RN [facility] Work Phone: 01-15-2016 08:18-0400 Pulse (Heart Rate) 79 /min Cyn Springer RN [facility] Work Phone: Comment on above: Pattern: Regular 01-15-2016 08:18-0400 Pulse Oximetry 97 % Breanna Castañeda [facility] Internal Medicine Work Phone: Comment on above: Room air 01-15-2016 08:18-0400 Respiratory Rate 16 /min Cyn Springer RN [facility] Work Phone: Comment on above: Pattern: Unlabored 01-15-2016 08:18-0400 SaO2% (BldA) [Mass fraction] 97 % Cyn Springer RN [facility]; [facility] Work Phone: 01-15-2016 08:18-0400 Weight 98.43 kg Breanna Parikhja [facility] Internal [facility] Work Phone: 10-15-2015 08:41-0400 BMI (Body Mass Index) 31.93 kg/m2 PANFILO Broussard LPN [facility] Work Phone: 10-15-2015 08:41-0400 Body Temperature 97.6 [degF] PANFILO Broussard LPN [facility] Work Phone: Comment on above: Method: Temporal 10-15-2015 08:41-0400 Body weight 95.26 kg PANFILO Broussard LPN [facility] Work Phone: 10-15-2015 08:41-0400 BP Diastolic 80 mm[Hg] PANFILO Broussard LPN [facility] Work Phone: Comment on above: Patient Position: Sitting; Cuff Location : Left Arm; Cuff Size: Standard 10-15-2015 08:41-0400 BP Systolic 124 mm[Hg] PANFILO Broussard LPN [facility] Work Phone: Comment on above: Patient Position: Sitting; Cuff Location : Left Arm; Cuff Size: Standard 10-15-2015 08:41-0400 BSA (Body Surface Area) 2.09 m2 PANFILO Broussard LPN [facility] Work Phone: 10-15-2015 08:41-0400 Height 172.72 cm PANFILO Broussard LPN [facility] Internal Medicine Work Phone: 10-15-2015 08:41-0400 Pulse (Heart Rate) 74 /min PANFILO Broussard LPN [facility] Internal Medicine Work Phone: Comment on above: Pattern: Regular 10-15-2015 08:41-0400 Pulse Oximetry 95 % Breanna Castañeda [facility] Internal Medicine Work Phone: Comment on above: Room air 10-15-2015 08:41-0400 Respiratory Rate 20 /min PANFILO Broussard LPN [facility] Internal Medicine Work Phone: Comment on above: Pattern: Unlabored 10-15-2015 08:41-0400 SaO2% (BldA) [Mass fraction] 95 % PANFILO Broussard LPN [facility]; [facility] Work Phone: 10-15-2015 08:41-0400 Weight 95.26 kg Breanna Castañeda [facility] Work Phone: 09-14-2015 07:56-0400 BMI (Body Mass Index) 32.99 kg/m2 PANFILO Broussard LPN [facility] Internal [facility] Work Phone: 09-14-2015 07:56-0400 Body Temperature 97.6 [degF] PANFILO Broussard LPN [facility] Internal Medicine Work Phone: Comment on above: Method: Temporal 09-14-2015 07:56-0400 Body weight 98.43 kg PANFILO Broussard LPN [facility] Internal [facility] Work Phone: 09-14-2015 07:56-0400 BP Diastolic 90 mm[Hg] PANFILO Broussard LPN [facility] Work Phone: Comment on above: Patient Position: Sitting; Cuff Location : Left Arm; Cuff Size: Standard 09-14-2015 07:56-0400 BP Systolic 124 mm[Hg] PANFILO Broussard LPN [facility] Internal Medicine Work Phone: Comment on above: Patient Position: Sitting; Cuff Location : Left Arm; Cuff Size: Standard 09-14-2015 07:56-0400 BSA (Body Surface Area) 2.12 m2 PANFILO Broussard LPN [facility] Internal Medicine Work Phone: 09-14-2015 07:56-0400 Height 172.72 cm PANFILO Broussard LPN [facility] Internal Medicine Work Phone: 09-14-2015 07:56-0400 Pulse (Heart Rate) 80 /min PANFILO Broussard LPN [facility] Internal Medicine Work Phone: Comment on above: Pattern: Regular 09-14-2015 07:56-0400 Pulse Oximetry 94 % Breanna Castañeda [facility] Internal Medicine Work Phone: Comment on above: Room air 09-14-2015 07:56-0400 Respiratory Rate 20 /min PANFILO Broussard LPN [facility] Internal Medicine Work Phone: Comment on above: Pattern: Unlabored 09-14-2015 07:56-0400 SaO2% (BldA) [Mass fraction] 94 % PANFILO Broussard LPN [facility]; [facility] Work Phone: 09-14-2015 07:56-0400 Weight 98.43 kg Breanna Castañeda [facility] Internal Medicine Work Phone: 07-16-2015 11:08-0500 BMI (Body Mass Index) 33.3 kg/m2 Edith Pang [facility] Work Phone: 07-16-2015 11:08-0500 Body Temperature 98.7 [degF] Edith Pang [facility] Work Phone: Comment on above: Method: Oral 07-16-2015 11:08-0500 Body weight 99.34 kg Edith Pang [facility] Work Phone: 07-16-2015 11:08-0500 BP Diastolic 80 mm[Hg] Edith Pang [facility] Internal Medicine Work Phone: Comment on above: Patient Position: Sitting; Cuff Location : Left Arm; Cuff Size: Standard 07-16-2015 11:08-0500 BP Systolic 152 mm[Hg] Edith Pang [facility] Internal Medicine Work Phone: Comment on above: Patient Position: Sitting; Cuff Location : Left Arm; Cuff Size: Standard 07-16-2015 11:08-0500 BSA (Body Surface Area) 2.12 m2 Edith Pang [facility] Internal Medicine Work Phone: 07-16-2015 11:08-0500 Height 172.72 cm Edith Pang [facility] Internal Medicine Work Phone: 07-16-2015 11:08-0500 Pulse (Heart Rate) 84 /min Edith Pang [facility] Internal Medicine Work Phone: Comment on above: Pattern: Regular 07-16-2015 11:08-0500 Pulse Oximetry 91 % Breanna Castañeda [facility] Internal Medicine Work Phone: Comment on above: Room air 07-16-2015 11:08-0500 Respiratory Rate 16 /min Edith Pang [facility] Internal Medicine Work Phone: Comment on above: Pattern: Unlabored 07-16-2015 11:08-0500 SaO2% (BldA) [Mass fraction] 91 % Edith Pang [facility]; [facility] Work Phone: 07-16-2015 11:08-0500 Weight 99.34 kg Breanna Castañeda [facility] Medicine Work Phone: 06-04-2015 12:59-0500 BMI (Body Mass Index) 33.3 kg/m2 [facility] Work Phone: 06-04-2015 12:59-0500 Body Temperature 97.6 [degF] PANFILO Broussard [facility] Internal Medicine Work Phone: Comment on above: Method: Temporal 06-04-2015 12:59-0500 Body weight 99.34 kg PANFILO Broussard [facility] Internal Medicine Work Phone: 06-04-2015 12:59-0500 BP Diastolic 94 mm[Hg] PANFILO Broussard [facility] Internal Medicine Work Phone: Comment on above: Patient Position: Sitting; Cuff Location : Left Arm; Cuff Size: Standard 06-04-2015 12:59-0500 BP Systolic 164 mm[Hg] PANFILO Broussard LPN [facility] Internal Medicine Work Phone: Comment on above: Patient Position: Sitting; Cuff Location : Left Arm; Cuff Size: Standard 06-04-2015 12:59-0500 BSA (Body Surface Area) 2.12 m2 PANFILO Broussard LPN [facility] Internal Medicine Work Phone: 06-04-2015 12:59-0500 Height 172.72 cm PANFILO Broussard KIANNA [facility] Internal Medicine Work Phone: 06-04-2015 12:59-0500 Pulse (Heart Rate) 84 /min PANFILO Broussard KIANNA [facility] Internal Medicine Work Phone: Comment on above: Pattern: Regular 06-04-2015 12:59-0500 Pulse Oximetry 95 % Breanna Castañeda [facility] Internal Medicine Work Phone: Comment on above: Room air 06-04-2015 12:59-0500 Respiratory Rate 20 /min PANFILO Broussard REGISTERED NURSE PRACTITIONER [facility] Internal Medicine Work Phone: Comment on above: Pattern: Unlabored 06-04-2015 12:59-0500 SaO2% (BldA) [Mass fraction] 95 % PANFILO Broussard REGISTERED NURSE PRACTITIONER [facility]; [facility] Work Phone: 06-04-2015 12:59-0500 Weight 99.34 kg Breanna Castañeda [facility] Internal Medicine Work Phone: 04-24-2015 14:13-0500 Pulse Oximetry 96 % Timothy BLACK [facility] Work Phone: 03-26-2015 16:00-0400 BMI (Body Mass Index) 31.17 kg/m2 Claudine Melendrez [facility] Internal Medicine Work Phone: 03-26-2015 16:00-0400 Body Temperature 98.3 [degF] Claudine Rose [facility] Internal Medicine Work Phone: Comment on above: Method: Temporal 03-26-2015 16:00-0400 Body weight 92.99 kg Claudine Rose [facility] Internal Medicine Work Phone: 03-26-2015 16:00-0400 BP Diastolic 84 mm[Hg] Claudine Barneysimoen [facility] Internal Medicine Work Phone: Comment on above: Patient Position: Sitting; Cuff Location : Left Arm; Cuff Size: Standard 03-26-2015 16:00-0400 BP Systolic 156 mm[Hg] Claudine Barneysimone [facility] Internal Medicine Work Phone: Comment on above: Patient Position: Sitting; Cuff Location : Left Arm; Cuff Size: Standard 03-26-2015 16:00-0400 BSA (Body Surface Area) 2.07 m2 Claudine Rose [facility] Internal Medicine Work Phone: 03-26-2015 16:00-0400 Height 172.72 cm Claudine Rose [facility] Internal Medicine Work Phone: 03-26-2015 16:00-0400 Pulse (Heart Rate) 72 /min Claudine Rose [facility] Work Phone: Comment on above: Pattern: Regular 03-26-2015 16:00-0400 Pulse Oximetry 96 % Breanna Henryterrenceja [facility] Internal Medicine Work Phone: Comment on above: Room air 03-26-2015 16:00-0400 Respiratory Rate 16 /min Claudine Rose [facility] Internal Medicine Work Phone: Comment on above: Pattern: Unlabored 03-26-2015 16:00-0400 SaO2% (BldA) [Mass fraction] 96 % Claudine Rose [facility]; [facility] Work Phone: 03-26-2015 16:00-0400 Weight 92.99 kg Breanna Parikhja [facility] Internal Medicine Work Phone: 03-16-2014 11:56-0400 BMI (Body Mass Index) 29.88 kg/m2 Elana Gupta RN [facility] Work Phone: 03-16-2014 11:56-0400 Body weight 89.13 kg Elana Gupta RN [facility] Work Phone: 03-16-2014 11:56-0400 BP Diastolic 78 mm[Hg] Elana Gupta RN [facility] Work Phone: Comment on above: Patient Position: Sitting; Cuff Location : Left Arm; Cuff Size: Large 03-16-2014 11:56-0400 BP Systolic 122 mm[Hg] Elana Gupta RN [facility] Work Phone: Comment on above: Patient Position: Sitting; Cuff Location : Left Arm; Cuff Size: Large 03-16-2014 11:56-0400 BSA (Body Surface Area) 2.03 m2 Elana Gupta RN [facility] Work Phone: 03-16-2014 11:56-0400 Height 172.72 cm Elana Gupta RN [facility] Work Phone: 03-16-2014 11:56-0400 Pulse (Heart Rate) 64 /min Elana Gupta RN [facility] Work Phone: Comment on above: Pattern: Regular 03-16-2014 11:56-0400 Pulse Oximetry 98 % Breanna Garry [facility] Work Phone: Comment on above: Room air 03-16-2014 11:56-0400 Respiratory Rate 18 /min Elana Gupta RN [facility] Work Phone: Comment on above: Pattern: Unlabored 03-16-2014 11:56-0400 SaO2% (BldA) [Mass fraction] 98 % Elana Gupta RN [facility]; [facility] Work Phone: 03-16-2014 11:56-0400 Weight 89.13 kg Breanna Castañeda [facility] Work Phone: 12-13-2013 13:02-0400 BMI (Body Mass Index) 31.82 kg/m2 Jennifer Anthony LPN [facility] Work Phone: 12-13-2013 13:02-0400 Body Temperature 97.8 [degF] Jennifer Anthony LPN [facility] Work Phone: Comment on above: Method: Oral 12-13-2013 13:02-0400 Body weight 94.92 kg Jennifer Anthony LPN [facility] Work Phone: 12-13-2013 13:02-0400 BP Diastolic 86 mm[Hg] Jennifer Anthony LPN [facility] Work Phone: Comment on above: Patient Position: Sitting; Cuff Location : Left Arm; Cuff Size: Standard 12-13-2013 13:02-0400 BP Systolic 144 mm[Hg] Jennifer Anthony LPN [facility] Work Phone: Comment on above: Patient Position: Sitting; Cuff Location : Left Arm; Cuff Size: Standard 12-13-2013 13:02-0400 BSA (Body Surface Area) 2.08 m2 Jennifer Anthony LPN [facility] Work Phone: 12-13-2013 13:02-0400 Height 172.72 cm Jennifer Anthony LPN [facility] Work Phone: 12-13-2013 13:02-0400 Pulse (Heart Rate) 77 /min Jennifer Anthony KIANNA [facility] Work Phone: Comment on above: Pattern: Regular 12-13-2013 13:02-0400 Pulse Oximetry 97 % Breanna Castañeda [facility] Work Phone: Comment on above: Room air 12-13-2013 13:02-0400 Respiratory Rate 17 /min Jennifre Anthony LPN [facility] Work Phone: 12-13-2013 13:02-0400 SaO2% (BldA) [Mass fraction] 97 % Jennifer Anthony KIANNA [facility]; [facility] Work Phone: 12-13-2013 13:02-0400 Weight 94.92 kg Breanna Castañeda [facility] Work Phone: 11-29-2013 12:59-0400 BMI (Body Mass Index) 31.82 kg/m2 Jennifer Anthony KIANNA [facility] Work Phone: 11-29-2013 12:59-0400 Body Temperature 99 [degF] Jennifer Anthony KIANNA [facility] Work Phone: Comment on above: Method: Oral 11-29-2013 12:59-0400 Body weight 94.92 kg Jennifer Anthony LPN [facility] Work Phone: 11-29-2013 12:59-0400 BP Diastolic 92 mm[Hg] Jennifer Anthony LPN [facility] Work Phone: Comment on above: Patient Position: Sitting; Cuff Location : Left Arm; Cuff Size: Standard 11-29-2013 12:59-0400 BP Systolic 148 mm[Hg] Jennifer Anthony LPN [facility] Work Phone: Comment on above: Patient Position: Sitting; Cuff Location : Left Arm; Cuff Size: Standard 11-29-2013 12:59-0400 BSA (Body Surface Area) 2.08 m2 Jennifer Anthony LPN [facility] Work Phone: 11-29-2013 12:59-0400 Height 172.72 cm Jennifer Anthony LPN [facility] Work Phone: 11-29-2013 12:59-0400 Pulse (Heart Rate) 74 /min Jennifer Anthony LPN [facility] Work Phone: Comment on above: Pattern: Regular 11-29-2013 12:59-0400 Pulse Oximetry 96 % Breanna Castañeda [facility] Work Phone: Comment on above: Room air 11-29-2013 12:59-0400 Respiratory Rate 18 /min Jennifer Anthony LPN [facility] Work Phone: 11-29-2013 12:59-0400 SaO2% (BldA) [Mass fraction] 96 % Jennifer Anthony LPN [facility]; [facility] Work Phone: 11-29-2013 12:59-0400 Weight 94.92 kg Breanna Castañeda [facility] Work Phone: 11-07-2013 13:54-0400 BMI (Body Mass Index) 31.17 kg/m2 Jennifer Anthony LPN [facility] Work Phone: 11-07-2013 13:54-0400 Body Temperature 98.2 [degF] Jennifer Anthony LPN [facility] Work Phone: Comment on above: Method: Oral 11-07-2013 13:54-0400 Body weight 92.99 kg Jennifer Anthony LPN [facility] Work Phone: 11-07-2013 13:54-0400 BP Diastolic 78 mm[Hg] Jennifer Anthony LPN [facility] Work Phone: Comment on above: Patient Position: Sitting; Cuff Location : Left Arm; Cuff Size: Standard 11-07-2013 13:54-0400 BP Systolic 142 mm[Hg] Jennifer Anthony LPN [facility] Work Phone: Comment on above: Patient Position: Sitting; Cuff Location : Left Arm; Cuff Size: Standard 11-07-2013 13:54-0400 BSA (Body Surface Area) 2.07 m2 Jennifer Anthony LPN [facility] Work Phone: 11-07-2013 13:54-0400 Height 172.72 cm Jennifer Anthony LPN [facility] Work Phone: 11-07-2013 13:54-0400 Pulse (Heart Rate) 86 /min Jennifer Anthony LPN [facility] Work Phone: Comment on above: Pattern: Regular 11-07-2013 13:54-0400 Pulse Oximetry 97 % Breanna Castañeda [facility] Work Phone: Comment on above: Room air 11-07-2013 13:54-0400 Respiratory Rate 15 /min Jennifer Anthony LPN [facility] Work Phone: 11-07-2013 13:54-0400 SaO2% (BldA) [Mass fraction] 97 % Jennifer Anthony LPN [facility]; [facility] Work Phone: 11-07-2013 13:54-0400 Weight 92.99 kg Breanna Castañeda [facility] Work Phone: 04-21-2013 14:42-0500 BMI (Body Mass Index) 31.17 kg/m2 PANFILO Broussard REGISTERED NURSE PRACTITIONER [facility] Work Phone: 04-21-2013 14:42-0500 Body Temperature 98.2 [degF] PANFILO Broussard LPN [facility] Work Phone: Comment on above: Method: Oral 04-21-2013 14:42-0500 Body weight 92.99 kg PANFILO Broussard LPN [facility] Work Phone: 04-21-2013 14:42-0500 BP Diastolic 82 mm[Hg] PANFILO Broussard LPN [facility] Work Phone: Comment on above: Patient Position: Sitting; Cuff Location : Left Arm; Cuff Size: Standard 04-21-2013 14:42-0500 BP Systolic 126 mm[Hg] PANFILO Broussard LPN [facility] Work Phone: Comment on above: Patient Position: Sitting; Cuff Location : Left Arm; Cuff Size: Standard 04-21-2013 14:42-0500 BSA (Body Surface Area) 2.07 m2 PANFILO Broussard LPN [facility] Internal [facility] Work Phone: 04-21-2013 14:42-0500 Height 172.72 cm PANFILO Broussard LPN [facility] Internal [facility] Work Phone: 04-21-2013 14:42-0500 Pulse (Heart Rate) 78 /min PANFILO Broussard LPN [facility] Internal Medicine Work Phone: Comment on above: Pattern: Regular 04-21-2013 14:42-0500 Respiratory Rate 18 /min PANFILO Broussard LPN [facility] Internal [facility] Work Phone: Comment on above: Pattern: Unlabored 04-21-2013 14:42-0500 Weight 92.99 kg Breanna Castañeda [facility] Internal [facility] Work Phone: 02-17-2013 09:46-0400 BMI (Body Mass Index) 31.17 kg/m2 PANFILO Broussard LPN [facility] Internal Medicine Work Phone: Comment on above: patient had coffe approx. 45 minutes ago along with a "very hot shower" 02-17-2013 09:46-0400 Body Temperature 99 [degF] PANFILO Broussard LPN [facility] Internal [facility] Work Phone: Comment on above: Method: Oral patient had coffe ap prox. 45 minutes ago along with a "very hot shower" 02-17-2013 09:46-0400 Body weight 92.99 kg PANFILO Broussard [facility] Internal Medicine Work Phone: Comment on above: patient had coffe approx. 45 minutes ago along with a "very hot shower" 02-17-2013 09:46-0400 BP Diastolic 84 mm[Hg] PANFILO Broussard [facility] Work Phone: Comment on above: Patient Position: Sitting; Cuff Location : Left Arm; Cuff Size: Standard patient had coffe ap prox. 45 minutes ago along with a "very hot shower" 02-17-2013 09:46-0400 BP Systolic 124 mm[Hg] PANFILO Broussard [facility] Work Phone: Comment on above: Patient Position: Sitting; Cuff Location : Left Arm; Cuff Size: Standard patient had coffe ap prox. 45 minutes ago along with a "very hot shower" 02-17-2013 09:46-0400 BSA (Body Surface Area) 2.07 m2 PANFILO Broussard [facility] Internal [facility] Work Phone: Comment on above: patient had coffe approx. 45 minutes ago along with a "very hot shower" 02-17-2013 09:46-0400 Height 172.72 cm PANFILO Broussard [facility] Internal Medicine Work Phone: Comment on above: patient had coffe approx. 45 minutes ago along with a "very hot shower" 02-17-2013 09:46-0400 Pulse (Heart Rate) 82 /min PANFILO Broussard [facility] Internal Medicine Work Phone: Comment on above: Pattern: Regular patient had coffe ap prox. 45 minutes ago along with a "very hot shower" 02-17-2013 09:46-0400 Respiratory Rate 20 /min PANFILO Broussard [facility] Internal Medicine Work Phone: Comment on above: Pattern: Unlabored patient had coffe ap prox. 45 minutes ago along with a "very hot shower" 02-17-2013 09:46-0400 Weight 92.99 kg Breanna Castañeda [facility] Internal Medicine Work Phone: Comment on above: patient had coffe approx. 45 minutes ago along with a "very hot shower" 01-14-2013 09:41-0400 BMI (Body Mass Index) 29.8 kg/m2 PANFILO Broussard LPN [facility] Internal Medicine Work Phone: 01-14-2013 09:41-0400 Body Temperature 97.6 [degF] PANFILO Broussard REGISTERED NURSE PRACTITIONER [facility] Internal Medicine Work Phone: Comment on above: Method: Oral 01-14-2013 09:41-0400 Body weight 88.91 kg PANFILO Broussard LPN [facility] Internal Medicine Work Phone: 01-14-2013 09:41-0400 BP Diastolic 84 mm[Hg] PANFILO Broussard REGISTERED NURSE PRACTITIONER [facility] Internal [facility] Work Phone: Comment on above: Patient Position: Sitting; Cuff Location : Left Arm; Cuff Size: Standard 01-14-2013 09:41-0400 BP Systolic 124 mm[Hg] PANFILO Broussard LPN [facility] Internal [facility] Work Phone: Comment on above: Patient Position: Sitting; Cuff Location : Left Arm; Cuff Size: Standard 01-14-2013 09:41-0400 BSA (Body Surface Area) 2.03 m2 PANFILO Broussard LPN [facility] Internal Medicine Work Phone: 01-14-2013 09:41-0400 Height 172.72 cm PANFILO Broussard REGISTERED NURSE PRACTITIONER [facility] Internal Medicine Work Phone: 01-14-2013 09:41-0400 Pulse (Heart Rate) 86 /min PANFILO Broussard LPN [facility] Internal [facility] Work Phone: Comment on above: Pattern: Regular 01-14-2013 09:41-0400 Respiratory Rate 18 /min PANFILO Broussard REGISTERED NURSE PRACTITIONER [facility] Internal Medicine Work Phone: Comment on above: Pattern: Unlabored 01-14-2013 09:41-0400 Weight 88.91 kg Breanna Castañeda [facility] Internal [facility] Work Phone: 11-15-2012 14:19-0400 BMI (Body Mass Index) 29.19 kg/m2 PANFILO Broussard REGISTERED NURSE PRACTITIONER [facility] Internal [facility] Work Phone: 11-15-2012 14:19-0400 Body Temperature 97.8 [degF] PANFILO Broussard LPN [facility] Internal [facility] Work Phone: Comment on above: Method: Oral 11-15-2012 14:19-0400 Body weight 87.09 kg PANFILO Broussard LPN [facility] Work Phone: 11-15-2012 14:19-0400 BP Diastolic 100 mm[Hg] PANFILO Broussard LPN [facility] Work Phone: Comment on above: Patient Position: Sitting; Cuff Location : Left Arm; Cuff Size: Standard 11-15-2012 14:19-0400 BP Systolic 144 mm[Hg] PANFILO Broussard LPN [facility] Work Phone: Comment on above: Patient Position: Sitting; Cuff Location : Left Arm; Cuff Size: Standard 11-15-2012 14:19-0400 BSA (Body Surface Area) 2.01 m2 PANFILO Broussard LPN [facility] Internal [facility] Work Phone: 11-15-2012 14:19-0400 Height 172.72 cm PANFILO Broussard LPN [facility] Internal [facility] Work Phone: 11-15-2012 14:19-0400 Pulse (Heart Rate) 76 /min PANFILO Broussard LPN [facility] Internal [facility] Work Phone: Comment on above: Pattern: Regular 11-15-2012 14:19-0400 Respiratory Rate 20 /min PANFILO Broussard LPN [facility] Internal [facility] Work Phone: Comment on above: Pattern: Unlabored 11-15-2012 14:19-0400 Weight 87.09 kg Breanna Castañeda [facility] Internal [facility] Work Phone: 10-21-2012 08:49-0400 BMI (Body Mass Index) 29.35 kg/m2 PANFILO Broussard LPN [facility] Internal Medicine Work Phone: 10-21-2012 08:49-0400 Body Temperature 98.1 [degF] PANFILO Broussard LPN [facility] Internal [facility] Work Phone: Comment on above: Method: Oral 10-21-2012 08:49-0400 Body weight 87.54 kg PANFILO Broussard LPN [facility] Work Phone: 10-21-2012 08:49-0400 BP Diastolic 84 mm[Hg] PANFILO Broussard LPN [facility] Work Phone: Comment on above: Patient Position: Sitting; Cuff Location : Left Arm; Cuff Size: Standard 10-21-2012 08:49-0400 BP Systolic 134 mm[Hg] PANFILO Broussard LPN [facility] Work Phone: Comment on above: Patient Position: Sitting; Cuff Location : Left Arm; Cuff Size: Standard 10-21-2012 08:49-0400 BSA (Body Surface Area) 2.01 m2 PANFILO Broussard LPN [facility] Work Phone: 10-21-2012 08:49-0400 Height 172.72 cm PANFILO Broussard LPN [facility] Work Phone: 10-21-2012 08:49-0400 Pulse (Heart Rate) 72 /min PANFILO Broussard LPN [facility] Internal [facility] Work Phone: Comment on above: Pattern: Regular 10-21-2012 08:49-0400 Respiratory Rate 20 /min PANFILO Broussard LPN [facility] Internal [facility] Work Phone: Comment on above: Pattern: Unlabored 10-21-2012 08:49-0400 Weight 87.54 kg Breanna Castañeda [facility] Work Phone: 07-22-2012 08:19-0500 BMI (Body Mass Index) 29.8 kg/m2 PANFILO Broussard LPN [facility] Work Phone: 07-22-2012 08:19-0500 Body Temperature 97.6 [degF] PANFILO Broussard LPN [facility] Internal [facility] Work Phone: Comment on above: Method: Oral 07-22-2012 08:19-0500 Body weight 88.91 kg PANFILO Broussard LPN [facility] Internal [facility] Work Phone: 07-22-2012 08:19-0500 BP Diastolic 80 mm[Hg] PANFILO Broussard LPN [facility] Work Phone: Comment on above: Patient Position: Sitting; Cuff Location : Left Arm; Cuff Size: Standard 07-22-2012 08:19-0500 BP Systolic 122 mm[Hg] PANFILO Broussard LPN [facility] Work Phone: Comment on above: Patient Position: Sitting; Cuff Location : Left Arm; Cuff Size: Standard 07-22-2012 08:19-0500 BSA (Body Surface Area) 2.03 m2 PANFILO Broussard LPN [facility] Work Phone: 07-22-2012 08:19-0500 Height 172.72 cm PANFILO Broussard LPN [facility] Work Phone: 07-22-2012 08:19-0500 Pulse (Heart Rate) 76 /min PANFILO Broussard LPN [facility] Work Phone: Comment on above: Pattern: Regular 07-22-2012 08:19-0500 Respiratory Rate 22 /min PANFILO Broussard LPN [facility] Internal [facility] Work Phone: Comment on above: Pattern: Unlabored 07-22-2012 08:19-0500 Weight 88.91 kg Breanna Castañeda [facility] Work Phone: 03-29-2012 14:32-0400 BMI (Body Mass Index) 30.11 kg/m2 PANFILO Broussadr LPN [facility] Work Phone: 03-29-2012 14:32-0400 Body Temperature 97.8 [degF] PANFILO Broussard LPN [facility] Internal [facility] Work Phone: Comment on above: Method: Oral 03-29-2012 14:32-0400 Body weight 89.81 kg PANFILO Broussard LPN [facility] Work Phone: 03-29-2012 14:32-0400 BP Diastolic 80 mm[Hg] PANFILO Broussard REGISTERED NURSE PRACTITIONER [facility] Work Phone: Comment on above: Patient Position: Sitting; Cuff Location : Left Arm; Cuff Size: Standard 03-29-2012 14:32-0400 BP Systolic 120 mm[Hg] PANFILO Broussard LPN [facility] Work Phone: Comment on above: Patient Position: Sitting; Cuff Location : Left Arm; Cuff Size: Standard 03-29-2012 14:32-0400 BSA (Body Surface Area) 2.04 m2 PANFILO Broussard LPN [facility] Work Phone: 03-29-2012 14:32-0400 Height 172.72 cm PANFILO Broussard LPN [facility] Work Phone: 03-29-2012 14:32-0400 Pulse (Heart Rate) 74 /min PANFILO Broussard LPN [facility] Work Phone: Comment on above: Pattern: Regular 03-29-2012 14:32-0400 Respiratory Rate 20 /min PANFILO Broussard LPN [facility] Work Phone: Comment on above: Pattern: Unlabored 03-29-2012 14:32-0400 Weight 89.81 kg Breanna Castañeda [facility] Work Phone: 02-11-2012 08:28-0400 BMI (Body Mass Index) 30.56 kg/m2 Jennifer Anthony [facility] Work Phone: 02-11-2012 08:28-0400 Body Temperature 98.4 [degF] Jennifer Anthony [facility] Work Phone: Comment on above: Method: Oral 02-11-2012 08:28-0400 Body weight 91.17 kg Jennifer Anthony REGISTERED NURSE PRACTITIONER [facility] Work Phone: 02-11-2012 08:28-0400 BP Diastolic 84 mm[Hg] Jennifer Anthony [facility] Work Phone: Comment on above: Patient Position: Sitting; Cuff Location : Left Arm; Cuff Size: Standard 02-11-2012 08:28-0400 BP Systolic 142 mm[Hg] Jennifer Anthony REGISTERED NURSE PRACTITIONER [facility] Work Phone: Comment on above: Patient Position: Sitting; Cuff Location : Left Arm; Cuff Size: Standard 02-11-2012 08:28-0400 BSA (Body Surface Area) 2.05 m2 Jennifer Anthony [facility] Work Phone: 02-11-2012 08:28-0400 Height 172.72 cm Jennifer Zarcoer REGISTERED NURSE PRACTITIONER [facility] Work Phone: 02-11-2012 08:28-0400 Pulse (Heart Rate) 78 /min Jennifer Raj HUTCHISON [facility] Work Phone: Comment on above: Pattern: Regular 02-11-2012 08:28-0400 Pulse Oximetry 97 % Breanna Castañeda [facility] Work Phone: Comment on above: Room air 02-11-2012 08:28-0400 Respiratory Rate 18 /min Jennifer Raj HUTCHISON [facility] Work Phone: Comment on above: Pattern: Unlabored 02-11-2012 08:28-0400 SaO2% (BldA) [Mass fraction] 97 % Jennifer Anthony LPN [facility]; [facility] Work Phone: 02-11-2012 08:28-0400 Weight 91.17 kg Breanna Castañeda [facility] Work Phone: 12-29-2011 14:59-0400 BMI (Body Mass Index) 30.56 kg/m2 Cyn Springer RN [email or web address] Internal Medicine Work Phone: 12-29-2011 14:59-0400 Body Temperature 97.8 [degF] Cyn Springer RN [facility] Work Phone: Comment on above: Method: Temporal 12-29-2011 14:59-0400 Body weight 91.17 kg Cyn Springer RN [facility] Work Phone: 12-29-2011 14:59-0400 BP Diastolic 78 mm[Hg] Cyn Springer RN [facility] Work Phone: Comment on above: Patient Position: Sitting; Cuff Location : Left Arm; Cuff Size: Standard 12-29-2011 14:59-0400 BP Systolic 126 mm[Hg] Cyn Springer RN [facility] Work Phone: Comment on above: Patient Position: Sitting; Cuff Location : Left Arm; Cuff Size: Standard 12-29-2011 14:59-0400 BSA (Body Surface Area) 2.05 m2 Cyn Springer RN [facility] Work Phone: 12-29-2011 14:59-0400 Height 172.72 cm Cyn Springer RN [facility] Work Phone: 12-29-2011 14:59-0400 Pulse (Heart Rate) 78 /min Cyn Springer RN [facility] Work Phone: Comment on above: Pattern: Regular 12-29-2011 14:59-0400 Respiratory Rate 16 /min Cyn Springer RN [facility] Work Phone: Comment on above: Pattern: Unlabored 12-29-2011 14:59-0400 Weight 91.17 kg Breanna Castañeda [facility] Work Phone: 05-12-2011 09:53-0500 BMI (Body Mass Index) 32.69 kg/m2 Cyn Springer RN [facility] [[email or web address] Internal Medicine Work Phone: 05-12-2011 09:53-0500 Body Temperature 98.6 [degF] Cyn Springer RN [facility] Work Phone: Comment on above: Method: Oral 05-12-2011 09:53-0500 Body weight 97.52 kg Cyn Springer RN [facility] Work Phone: 05-12-2011 09:53-0500 BP Diastolic 92 mm[Hg] Cyn Springer RN [facility] Work Phone: Comment on above: Patient Position: Sitting; Cuff Location : Left Arm; Cuff Size: Standard 05-12-2011 09:53-0500 BP Systolic 140 mm[Hg] Cyn Springer RN [facility] Work Phone: Comment on above: Patient Position: Sitting; Cuff Location : Left Arm; Cuff Size: Standard 05-12-2011 09:53-0500 BSA (Body Surface Area) 2.11 m2 Cyn Springer RN [facility] Work Phone: 05-12-2011 09:53-0500 Height 172.72 cm Cyn Springer RN [facility] Work Phone: 05-12-2011 09:53-0500 Pulse (Heart Rate) 78 /min Cyn Springer RN [facility] Work Phone: Comment on above: Pattern: Regular 05-12-2011 09:53-0500 Respiratory Rate 16 /min Cyn Springer RN [facility] Work Phone: Comment on above: Pattern: Unlabored 05-12-2011 09:53-0500 Weight 97.52 kg Breanna Castañeda [facility] Work Phone: 01-03-2011 10:00-0400 BMI (Body Mass Index) 33.3 kg/m2 PANFILO Broussard LPN [facility] Work Phone: 01-03-2011 10:00-0400 Body Temperature 98 [degF] PANFILO Broussard LPN [facility] Work Phone: Comment on above: Method: Oral 01-03-2011 10:00-0400 Body weight 99.34 kg PANFILO Brousasrd LPN [facility] Work Phone: 01-03-2011 10:00-0400 BP Diastolic 84 mm[Hg] PANFILO Broussard LPN [facility] Work Phone: Comment on above: Patient Position: Sitting; Cuff Location : Left Arm; Cuff Size: Standard 01-03-2011 10:00-0400 BP Systolic 130 mm[Hg] PANFILO Bobo HUTCHISON [facility] Work Phone: Comment on above: Patient Position: Sitting; Cuff Location : Left Arm; Cuff Size: Standard 01-03-2011 10:00-0400 BSA (Body Surface Area) 2.12 m2 PANFILO Broussard LPN [facility] Work Phone: 01-03-2011 10:00-0400 Height 172.72 cm PANFILO Broussard LPN [facility] Work Phone: 01-03-2011 10:00-0400 Pulse (Heart Rate) 70 /min PANFILO Broussard LPN [facility] Work Phone: Comment on above: Pattern: Regular 01-03-2011 10:00-0400 Respiratory Rate 20 /min PANFILO Broussard LPN [facility] Work Phone: Comment on above: Pattern: Unlabored 01-03-2011 10:00-0400 Weight 99.34 kg Breanna Castañeda [facility] Work Phone: 09-26-2010 08:44-0400 BMI (Body Mass Index) 32.39 kg/m2 PANFILO Broussard LPN [facility] Work Phone: 09-26-2010 08:44-0400 Body Temperature 98.2 [degF] PANFILO Broussard REGISTERED NURSE PRACTITIONER [facility] Internal Medicine Work Phone: Comment on above: Method: Oral 09-26-2010 08:44-0400 Body weight 96.62 kg PANFILO Broussard REGISTERED NURSE PRACTITIONER [facility] Internal Medicine Work Phone: 09-26-2010 08:44-0400 BP Diastolic 94 mm[Hg] PANFILO Broussard REGISTERED NURSE PRACTITIONER [facility] Internal Medicine Work Phone: Comment on above: Patient Position: Sitting; Cuff Location : Left Arm; Cuff Size: Standard 09-26-2010 08:44-0400 BP Systolic 138 mm[Hg] PANFILO Broussard LPN [facility] Internal Medicine Work Phone: Comment on above: Patient Position: Sitting; Cuff Location : Left Arm; Cuff Size: Standard 09-26-2010 08:44-0400 BSA (Body Surface Area) 2.1 m2 PANFILO Broussard LPN [facility] Internal Medicine Work Phone: 09-26-2010 08:44-0400 Height 172.72 cm PANFILO Broussard [facility] Internal Medicine Work Phone: 09-26-2010 08:44-0400 Pulse (Heart Rate) 72 /min PANFILO Broussard REGISTERED NURSE PRACTITIONER [facility] Internal Medicine Work Phone: Comment on above: Pattern: Regular 09-26-2010 08:44-0400 Respiratory Rate 18 /min PANFILO Broussard REGISTERED NURSE PRACTITIONER [facility] Internal Medicine Work Phone: Comment on above: Pattern: Unlabored 09-26-2010 08:44-0400 Weight 96.62 kg Breanna Castañeda [facility] Internal Medicine Work Phone: 08-12-2010 08:39-0500 BMI (Body Mass Index) 32.39 kg/m2 PANFILO Broussard [facility] Internal Medicine Work Phone: 08-12-2010 08:39-0500 Body Temperature 98.2 [degF] PANFILO Broussard LPN [facility] Internal Medicine Work Phone: Comment on above: Method: Oral 08-12-2010 08:39-0500 Body weight 96.62 kg PANFILO Broussard LPN [facility] Internal Medicine Work Phone: 08-12-2010 08:39-0500 BP Diastolic 90 mm[Hg] PANFILO Broussard REGISTERED NURSE PRACTITIONER [facility] Internal Medicine Work Phone: Comment on above: Patient Position: Sitting; Cuff Location : Left Arm; Cuff Size: Standard 08-12-2010 08:39-0500 BP Systolic 126 mm[Hg] PANFILO Broussard LPN [facility] Internal Medicine Work Phone: Comment on above: Patient Position: Sitting; Cuff Location : Left Arm; Cuff Size: Standard 08-12-2010 08:39-0500 BSA (Body Surface Area) 2.1 m2 PANFILO Broussard [facility] Internal Medicine Work Phone: 08-12-2010 08:39-0500 Height 172.72 cm PANFILO Broussard [facility] Internal Medicine Work Phone: 08-12-2010 08:39-0500 Pulse (Heart Rate) 76 /min PANFILO Broussard LPN [facility] Internal Medicine Work Phone: Comment on above: Pattern: Regular 08-12-2010 08:39-0500 Respiratory Rate 20 /min PANFILO Broussard REGISTERED NURSE PRACTITIONER [facility] Internal Medicine Work Phone: Comment on above: Pattern: Unlabored 08-12-2010 08:39-0500 Weight 96.62 kg Breanna Castañeda [facility] Internal Medicine Work Phone: 07-11-2010 08:26-0500 Body Temperature 97.5 [degF] Jennifer Anthony [facility] Internal Medicine Work Phone: Comment on above: Method: Oral 07-11-2010 08:26-0500 Body weight 94.8 kg Jennifer Anthony [facility] Internal Medicine Work Phone: 07-11-2010 08:26-0500 BP Diastolic 82 mm[Hg] Jennifer Anthony LPN [facility] Work Phone: Comment on above: Patient Position: Sitting; Cuff Location : Left Arm; Cuff Size: Standard 07-11-2010 08:26-0500 BP Systolic 124 mm[Hg] Jennifer Anthony LPN [facility] Work Phone: Comment on above: Patient Position: Sitting; Cuff Location : Left Arm; Cuff Size: Standard 07-11-2010 08:26-0500 Pulse (Heart Rate) 76 /min Jennifer Anthony LPN [facility] Work Phone: Comment on above: Pattern: Regular 07-11-2010 08:26-0500 Pulse Oximetry 96 % Breanna Castañeda [facility] Internal Medicine Work Phone: Comment on above: Room air 07-11-2010 08:26-0500 Respiratory Rate 18 /min Jennifer Anthony LPN [facility] Work Phone: Comment on above: Pattern: Unlabored 07-11-2010 08:26-0500 SaO2% (BldA) [Mass fraction] 96 % Jennifer Anthony LPN [facility]; [facility] Work Phone: 07-11-2010 08:26-0500 Weight 94.8 kg Breanna Castañeda [facility] Internal Medicine Work Phone: 07-11-2009 08:59-0500 Body Temperature 97.9 [degF] Jennifer Anthony LPN [facility] Work Phone: Comment on above: Method: Oral 07-11-2009 08:59-0500 Body weight 94.8 kg Jennifer Anthony LPN [facility] Work Phone: 07-11-2009 08:59-0500 BP Diastolic 86 mm[Hg] Jennifer Anthony LPN [facility] Work Phone: Comment on above: Patient Position: Sitting; Cuff Location : Left Arm; Cuff Size: Standard 07-11-2009 08:59-0500 BP Systolic 138 mm[Hg] Jennifer Anthony LPN [facility] Work Phone: Comment on above: Patient Position: Sitting; Cuff Location : Left Arm; Cuff Size: Standard 07-11-2009 08:59-0500 Pulse (Heart Rate) 84 /min Jennifer Anthony KIANNA [facility] Work Phone: Comment on above: Pattern: Regular 07-11-2009 08:59-0500 Pulse Oximetry 96 % Breanna Castñaeda [facility] Internal Medicine Work Phone: Comment on above: Room air 07-11-2009 08:59-0500 Respiratory Rate 18 /min Jennifer Anthony KIANNA [facility] Work Phone: Comment on above: Pattern: Unlabored 07-11-2009 08:59-0500 SaO2% (BldA) [Mass fraction] 96 % Jennifer Anthony KIANNA [facility]; [facility] Work Phone: 07-11-2009 08:59-0500 Weight 94.8 kg Breanna Castañeda [facility] Internal Medicine Work Phone: 11-30-2008 07:57-0400 Body weight 94.8 kg PANFILO Broussard KIANNA [facility] Work Phone: 11-30-2008 07:57-0400 BP Diastolic 80 mm[Hg] PANFILO Broussard KIANNA [facility] Work Phone: Comment on above: Patient Position: Sitting; Cuff Location : Left Arm; Cuff Size: Standard 11-30-2008 07:57-0400 BP Systolic 122 mm[Hg] PANFILO Broussard KIANNA [facility] Work Phone: Comment on above: Patient Position: Sitting; Cuff Location : Left Arm; Cuff Size: Standard 11-30-2008 07:57-0400 Head Circumference 0 cm Breanna Parikhja [facility] Internal Medicine Work Phone: 11-30-2008 07:57-0400 Head Occipital-frontal circumference 0 cm PANFILO Broussard KIANNA [facility]; [facility] Work Phone: 11-30-2008 07:57-0400 Height 0 cm PANFILO Broussard LPN [facility] Work Phone: 11-30-2008 07:57-0400 Pulse (Heart Rate) 78 /min PANFILO Broussard LPN [facility] Work Phone: Comment on above: Pattern: Regular 11-30-2008 07:57-0400 Respiratory Rate 16 /min PANFILO Broussard LPN [facility] Work Phone: Comment on above: Pattern: Unlabored 11-30-2008 07:57-0400 Weight 94.8 kg Breanna Castañeda [facility] Internal Medicine Work Phone: 09-13-2008 11:42-0400 Body weight 93.9 kg PANFILO Broussard LPN [facility] Work Phone: 09-13-2008 11:42-0400 BP Diastolic 84 mm[Hg] PANFILO Broussard LPN [facility] Work Phone: Comment on above: Patient Position: Sitting; Cuff Location : Left Arm; Cuff Size: Standard 09-13-2008 11:42-0400 BP Systolic 126 mm[Hg] PANFILO Broussard LPN [facility] Work Phone: Comment on above: Patient Position: Sitting; Cuff Location : Left Arm; Cuff Size: Standard 09-13-2008 11:42-0400 Head Circumference 0 cm Breanna Castañeda [facility] Internal Medicine Work Phone: 09-13-2008 11:42-0400 Head Occipital-frontal circumference 0 cm PANFILO Broussard LPN [facility]; [facility] Work Phone: 09-13-2008 11:42-0400 Height 0 cm PANFILO Broussard LPN [facility] Work Phone: 09-13-2008 11:42-0400 Pulse (Heart Rate) 84 /min PANFILO Broussard LPN [facility] Work Phone: Comment on above: Pattern: Regular 09-13-2008 11:42-0400 Respiratory Rate 18 /min PANFILO Broussard LPN [facility] Work Phone: Comment on above: Pattern: Unlabored 09-13-2008 11:42-0400 Weight 93.9 kg Breanna Castañeda [facility] Internal Medicine Work Phone: 08-23-2008 10:32-0400 Body weight 93.9 kg PANFILO Broussard LPN [facility] Work Phone: 08-23-2008 10:32-0400 BP Diastolic 82 mm[Hg] PANFILO Broussard LPN [facility] Work Phone: Comment on above: Patient Position: Sitting; Cuff Location : Left Arm; Cuff Size: Standard 08-23-2008 10:32-0400 BP Systolic 126 mm[Hg] PANFILO Broussard LPN [facility] Work Phone: Comment on above: Patient Position: Sitting; Cuff Location : Left Arm; Cuff Size: Standard 08-23-2008 10:32-0400 Head Circumference 0 cm Breanna Castañeda [facility] Internal Medicine Work Phone: 08-23-2008 10:32-0400 Head Occipital-frontal circumference 0 cm PANFILO Broussard LPN [facility]; [facility] Work Phone: 08-23-2008 10:32-0400 Height 0 cm PANFILO Broussard LPN [facility] Work Phone: 08-23-2008 10:32-0400 Pulse (Heart Rate) 78 /min PANFILO Broussard LPN [facility] Work Phone: Comment on above: Pattern: Regular 08-23-2008 10:32-0400 Pulse Oximetry 95 % Breanna Castañeda [facility] Internal Medicine Work Phone: Comment on above: Room air 08-23-2008 10:32-0400 Respiratory Rate 18 /min PANFILO Broussard LPN [facility] Work Phone: Comment on above: Pattern: Unlabored 08-23-2008 10:32-0400 SaO2% (BldA) [Mass fraction] 95 % PANFILO Broussard LPN [facility]; [facility] Work Phone: 08-23-2008 10:32-0400 Weight 93.9 kg Breanna Castañeda [facility] Internal Medicine Work Phone: 03-20-2008 08:30-0400 Body Temperature 98 [degF] Jennifer Anthony REGISTERED NURSE PRACTITIONER [facility] Work Phone: Comment on above: Method: Oral 10-13-2008 08:30-0400 Body weight 87.11 kg Jennifer Anthony LPN [facility] Work Phone: 03-20-2008 08:30-0400 BP Diastolic 80 mm[Hg] Jennifer Anthony LPN [facility] Work Phone: Comment on above: Patient Position: Sitting; Cuff Location : Left Arm; Cuff Size: Standard 03-20-2008 08:30-0400 BP Systolic 132 mm[Hg] Jennifer Anthony LPN [facility] Work Phone: Comment on above: Patient Position: Sitting; Cuff Location : Left Arm; Cuff Size: Standard 03-20-2008 08:30-0400 Head Circumference 0 cm Breanna Castañeda [facility] Internal Medicine Work Phone: 03-20-2008 08:30-0400 Head Occipital-frontal circumference 0 cm Jennifer Anthony KIANNA [facility]; [facility] Work Phone: 03-20-2008 08:30-0400 Height 0 cm Jennifer Anthony LPN [facility] Work Phone: 03-20-2008 08:30-0400 Pulse (Heart Rate) 66 /min Jennifer Anthony LPN [facility] Work Phone: Comment on above: Pattern: Regular 03-20-2008 08:30-0400 Pulse Oximetry 95 % Breanna Henryja [facility] Internal Medicine Work Phone: Comment on above: Room air 03-20-2008 08:30-0400 Respiratory Rate 19 /min Jennifer Anthony LPN [facility] Work Phone: Comment on above: Pattern: Unlabored 03-20-2008 08:30-0400 SaO2% (BldA) [Mass fraction] 95 % Jennifer Anthony REGISTERED NURSE PRACTITIONER [facility]; [facility] Work Phone: 03-20-2008 08:30-0400 Weight 87.11 kg Breanna Castañeda [facility] Medicine Work Phone: 12-27-2007 13:50-0400 Body weight 87.11 kg Jennifer Anthony LPN [facility] Work Phone: 12-27-2007 13:50-0400 BP Diastolic 78 mm[Hg] Jennifer Anthony LPN [facility] Work Phone: Comment on above: Patient Position: Sitting; Cuff Location : Left Arm; Cuff Size: Standard 12-27-2007 13:50-0400 BP Systolic 120 mm[Hg] Jennifer Anthony KIANNA [facility] Work Phone: Comment on above: Patient Position: Sitting; Cuff Location : Left Arm; Cuff Size: Standard 12-27-2007 13:50-0400 Head Circumference 0 cm Breanna Castañeda [facility] Internal Medicine Work Phone: 12-27-2007 13:50-0400 Head Occipital-frontal circumference 0 cm Jennifer Anthony KIANNA [facility]; [facility] Work Phone: 12-27-2007 13:50-0400 Height 0 cm Jennifer Anthony REGISTERED NURSE PRACTITIONER [facility] Work Phone: 12-27-2007 13:50-0400 Pulse (Heart Rate) 88 /min Jennifer Anthony REGISTERED NURSE PRACTITIONER [facility] Work Phone: Comment on above: Pattern: Regular 12-27-2007 13:50-0400 Pulse Oximetry 96 % Breanna Castañeda [facility] Internal Medicine Work Phone: Comment on above: Room air 12-27-2007 13:50-0400 Respiratory Rate 16 /min Jennifer Anthony REGISTERED NURSE PRACTITIONER [facility] Work Phone: Comment on above: Pattern: Unlabored 12-27-2007 13:50-0400 SaO2% (BldA) [Mass fraction] 96 % Jennifer Anthony KIANNA [facility]; [facility] Work Phone: 12-27-2007 13:50-0400 Weight 87.11 kg Breanna Castañeda [facility] Internal Medicine Work Phone: 12-13-2007 15:38-0400 Body Temperature 98.2 [degF] PANFILO Broussard [facility] Work Phone: Comment on above: Method: Oral 12-13-2007 15:38-0400 Body weight 87.11 kg PANFILO Broussard LPN [facility] Internal Medicine Work Phone: 12-13-2007 15:38-0400 BP Diastolic 76 mm[Hg] PANFILO Broussard LPN [facility] Internal Medicine Work Phone: Comment on above: Patient Position: Sitting; Cuff Location : Left Arm; Cuff Size: Standard 12-13-2007 15:38-0400 BP Systolic 118 mm[Hg] PANFILO Broussard LPN [facility] Internal Medicine Work Phone: Comment on above: Patient Position: Sitting; Cuff Location : Left Arm; Cuff Size: Standard 12-13-2007 15:38-0400 Head Circumference 0 cm Breanna Castañeda [facility] Internal Medicine Work Phone: 12-13-2007 15:38-0400 Head Occipital-frontal circumference 0 cm PANFILO Broussard LPN [facility]; [facility] Work Phone: 12-13-2007 15:38-0400 Height 0 cm PANFILO Broussard LPN [facility] Work Phone: 12-13-2007 15:38-0400 Pulse (Heart Rate) 70 /min PANFILO Broussard LPN [facility] Internal Medicine Work Phone: Comment on above: Pattern: Regular 12-13-2007 15:38-0400 Respiratory Rate 16 /min PANFILO Broussard LPN [facility] Internal Medicine Work Phone: Comment on above: Pattern: Unlabored 12-13-2007 15:38-0400 Weight 87.11 kg Breanna Castañeda [facility] Internal Medicine Work Phone: 11-17-2007 08:11-0400 Body Temperature 98.4 [degF] Angela [facility] Internal Medicine Work Phone: Comment on above: Method: Oral 11-17-2007 08:11-0400 Body weight 88.45 kg Angela [facility] Internal Medicine Work Phone: 11-17-2007 08:11-0400 BP Diastolic 88 mm[Hg] Angela [facility] Internal Medicine Work Phone: Comment on above: Patient Position: Sitting; Cuff Location : Left Arm; Cuff Size: Standard 11-17-2007 08:11-0400 BP Systolic 142 mm[Hg] [facility] Internal Medicine Work Phone: Comment on above: Patient Position: Sitting; Cuff Location : Left Arm; Cuff Size: Standard 11-17-2007 08:11-0400 Head [facility]um[facility]: 11-17-2007 08:11-0400 Head Occipital-frontal circumference 0 cm [facility]; [facility] Work Phone: 11-17-2007 [id number] Height 0 cm [facility] Internal Medicine Work Phone: 11-17-2007 08:11-0400 Pulse (Heart Rate) 76 /min [facility] Internal Medicine Work Phone: Comment on above: Pattern: Regular 11-17-2007 08:11-0400 Pulse [facility]ximetry 96 % [facility] Work [facility]: Comment on above: Room air 11-17-2007 08:11-0400 Respiratory Rate 18 /min [facility] Internal Medicine Work Phone: Comment on above: Pattern: Unlabored 11-17-2007 08:11-0400 SaO2% (BldA) [Mass fraction] 96 % [facility]; [facility] Work Phone: 11-17-2007 08:11-0400 Weight 88.45 kg Breanna Castañeda [facility] Internal Medicine Work Phone: 10-21-2007 08:05-0400 Body Temperature 98.9 [degF] [facility] Internal Medicine Work Phone: Comment on above: Method: Oral 10-21-2007 08:05-0400 Body weight 88.45 kg [facility] Internal Medicine Work Phone: 10-21-2007 08:05-0400 BP Diastolic 88 mm[Hg] [facility] Medicine Work Phone: Comment on above: Patient Position: Sitting; Cuff Location : Left Arm; Cuff Size: Large 10-21-2007 08:05-0400 BP Systolic 140 mm[Hg] [facility] Medicine Work Phone: Comment on above: Patient Position: Sitting; Cuff Location : Left Arm; Cuff Size: Large 10-21-2007 08:05-0400 Head Circumference 0 cm [facility] Internal Medicine Work Phone: 10-21-2007 08:05-0400 Head Occipital-frontal circumference 0 cm [facility]; [facility] Medicine Work Phone: 10-21-2007 08:05-0400 Height 0 cm [facility] Work Phone: 10-21-2007 08:05-0400 Pulse (Heart Rate) 76 /min [facility] Medicine Work Phone: Comment on above: Pattern: Regular 10-21-2007 08:05-0400 Respiratory Rate 18 /min [facility] Medicine Work Phone: Comment on above: Pattern: Unlabored 10-21-2007 08:05-0400 Weight 88.45 kg [facility] Internal Medicine Work Phone: 09-07-2007 15:25-0400 Body Temperature 98.2 [degF] PANFILO Bobo [facility] Internal Medicine Work Phone: Comment on above: Method: Oral 09-07-2007 15:25-0400 Body weight 0 kg PANFILOTURNER Broussard [facility] Internal Medicine Work Phone: 09-07-2007 15:25-0400 BP Diastolic 80 mm[Hg] PANFILOTURNER Broussard [facility] Internal Medicine Work Phone: Comment on above: Patient Position: Sitting; Cuff Location : Left Arm; Cuff Size: Standard 09-07-2007 15:25-0400 BP Systolic 140 mm[Hg] PANFILO Bobo [facility] Internal Medicine Work Phone: Comment on above: Patient Position: Sitting; Cuff Location : Left Arm; Cuff Size: Standard 09-07-2007 15:25-0400 Head Circumference 0 cm [facility] Internal Medicine Work Phone: 09-07-2007 15:25-0400 Head Occipital-frontal circumference 0 cm PANFILO Broussard LPN [facility]; [facility] Work Phone: 09-07-2007 15:25-0400 Height 0 cm PANFILO Broussard LPN [facility] Work Phone: 09-07-2007 15:25-0400 Pulse (Heart Rate) 72 /min PANFILO Broussard LPN [facility] Work Phone: Comment on above: Pattern: Regular 09-07-2007 15:25-0400 Respiratory Rate 18 /min PANFILO Broussard LPN [facility] Work Phone: Comment on above: Pattern: Unlabored 09-07-2007 15:25-0400 Weight 0 kg Breanna Castañeda [facility] Medicine Work Phone: 08-10-2007 15:34-0500 Body Temperature 98.2 [degF] PANFILO Broussard LPN [facility] Work Phone: Comment on above: Method: Oral 08-10-2007 15:34-0500 Body weight 88.45 kg PANFILO Broussard LPN [facility] Work Phone: 08-10-2007 15:34-0500 BP Diastolic 76 mm[Hg] PANFILO Broussard LPN [facility] Work Phone: Comment on above: Patient Position: Sitting; Cuff Location : Left Arm; Cuff Size: Standard 08-10-2007 15:34-0500 BP Systolic 114 mm[Hg] PANFILO Broussard LPN [facility] Work Phone: Comment on above: Patient Position: Sitting; Cuff Location : Left Arm; Cuff Size: Standard 08-10-2007 15:34-0500 Head Circumference 0 cm Breanna Castañeda [facility] Work Phone: 08-10-2007 15:34-0500 Head Occipital-frontal circumference 0 cm PANFILO Broussard LPN [facility]; [facility] Work Phone: 08-10-2007 15:34-0500 Height 0 cm PANFILO Broussard LPN [facility] Work Phone: 08-10-2007 15:34-0500 Pulse (Heart Rate) 80 /min PANFILO Broussard LPN [facility] Work Phone: Comment on above: Pattern: Regular 08-10-2007 15:34-0500 Pulse Oximetry 96 % Breanna Castañeda [facility] Work Phone: Comment on above: Room air 08-10-2007 15:34-0500 Respiratory Rate 18 /min PANFILO Broussard LPN [facility] Work Phone: Comment on above: Pattern: Unlabored 08-10-2007 15:34-0500 SaO2% (BldA) [Mass fraction] 96 % PANFILO Broussard REGISTERED NURSE PRACTITIONER [facility]; [facility] Work Phone: 08-10-2007 15:34-0500 Weight 88.45 kg Breanna Castañeda [facility] Work Phone: 07-15-2007 09:18-0500 Body Temperature 98 [degF] Jennifer Anthony KIANNA [facility] Work Phone: Comment on above: Method: Oral 07-15-2007 09:18-0500 Body weight 89.36 kg Jennifer Anthony KIANNA [facility] Work Phone: 07-15-2007 09:18-0500 BP Diastolic 80 mm[Hg] Jennifer Zarcodiann [place] [facility] Work Phone: Comment on above: Patient Position: Sitting; Cuff Location : Left Arm; Cuff Size: Standard 07-15-2007 09:18-0500 BP Systolic 122 mm[Hg] Jennifer Zarcodiann [place] [facility] Work Phone: Comment on above: Patient Position: Sitting; Cuff Location : Left Arm; Cuff Size: Standard 07-15-2007 09:18-0500 Head Circumference 0 cm Breanna Castañeda [facility] Work Phone: 07-15-2007 09:18-0500 Head Occipital-frontal circumference 0 cm Jennifer Zarcodiann [facility] [facility] Work Phone: 07-15-2007 09:18-0500 Height 0 cm Jennifer Raj [place] [facility] Work Phone: 07-15-2007 09:18-0500 Pulse (Heart Rate) 74 /min Jennifer Anthony LPN [facility] Work Phone: Comment on above: Pattern: Regular 07-15-2007 09:18-0500 Pulse Oximetry 94 % Breanna Castañeda [facility] Work Phone: Comment on above: Room air 07-15-2007 09:18-0500 Respiratory Rate 18 /min Jennifer Anthony LPN [facility] Work Phone: Comment on above: Pattern: Unlabored 07-15-2007 09:18-0500 SaO2% (BldA) [Mass fraction] 94 % Jennifer Anthony LPN [facility]; [facility] Work Phone: 07-15-2007 09:18-0500 Weight 89.36 kg Breanna Castañeda [facility] Medicine Work Phone: 05-11-2007 15:13-0500 Body Temperature 98.8 [degF] PANFILO Broussard LPN [facility] Work Phone: Comment on above: Method: Oral 05-11-2007 15:13-0500 Body weight 89.36 kg PANFILO Broussard LPN [facility] Medicine Work Phone: 05-11-2007 15:13-0500 BP Diastolic 82 mm[Hg] PANFILO Broussard LPN [facility] Work Phone: Comment on above: Patient Position: Sitting; Cuff Location : Left Arm; Cuff Size: Standard 05-11-2007 15:13-0500 BP Systolic 122 mm[Hg] PANFILO Broussard LPN [facility] Work Phone: Comment on above: Patient Position: Sitting; Cuff Location : Left Arm; Cuff Size: Standard 05-11-2007 15:13-0500 Head Circumference 0 cm Breanna Castañeda [facility] Internal Medicine Work Phone: 05-11-2007 15:13-0500 Head Occipital-frontal circumference 0 cm PANFILO Broussard LPN [facility]; [facility] Work Phone: 05-11-2007 15:13-0500 Height 0 cm PANFILO Broussard LPN [facility] Work Phone: 05-11-2007 15:13-0500 Pulse (Heart Rate) 76 /min PANFILO Broussard LPN [facility] Work Phone: Comment on above: Pattern: Regular 05-11-2007 15:13-0500 Respiratory Rate 18 /min PANFILO Broussard LPN [facility] Work Phone: Comment on above: Pattern: Unlabored 05-11-2007 15:13-0500 Weight 89.36 kg Breanna Castañeda [facility] Internal Medicine Work Phone: 04-22-2007 08:15-0500 Body Temperature 98.8 [degF] PANFILO Broussard LPN [facility] Work Phone: Comment on above: Method: Oral 04-22-2007 08:15-0500 Body weight 0 kg PANFILO Broussard LPN [facility] Work Phone: 04-22-2007 08:15-0500 BP Diastolic 80 mm[Hg] PANFILO Broussard LPN [facility] Work Phone: Comment on above: Patient Position: Sitting; Cuff Location : Left Arm; Cuff Size: Standard 04-22-2007 08:15-0500 BP Systolic 124 mm[Hg] PANFILO Broussard LPN [facility] Work Phone: Comment on above: Patient Position: Sitting; Cuff Location : Left Arm; Cuff Size: Standard 04-22-2007 08:15-0500 Head Circumference 0 cm Breanna Castañeda [facility] Medicine Work Phone: 04-22-2007 08:15-0500 Head Occipital-frontal circumference 0 cm PANFILO Broussard LPN [facility]; [facility] Work Phone: 04-22-2007 08:15-0500 Height 0 cm PANFILO Broussard LPN [facility] Work Phone: 04-22-2007 08:15-0500 Pulse (Heart Rate) 74 /min PANFILO Broussard LPN [facility] Work Phone: Comment on above: Pattern: Regular 04-22-2007 08:15-0500 Respiratory Rate 18 /min PANFILO Borussard LPN [facility] Work Phone: Comment on above: Pattern: Unlabored 04-22-2007 08:15-0500 Weight 0 kg Breanna Castañeda [facility] Medicine Work Phone: 02-09-2007 15:46-0400 Body Temperature 97.6 [degF] PANFILO Broussard LPN [facility] Work Phone: Comment on above: Method: Oral 02-09-2007 15:46-0400 Body weight 0 kg PANFILO Broussard LPN [facility] Work Phone: 02-09-2007 15:46-0400 BP Diastolic 80 mm[Hg] PANFILO Broussard LPN [facility] Work Phone: Comment on above: Patient Position: Sitting; Cuff Location : Left Arm; Cuff Size: Standard 02-09-2007 15:46-0400 BP Systolic 122 mm[Hg] PANFILO Broussard LPN [facility] Work Phone: Comment on above: Patient Position: Sitting; Cuff Location : Left Arm; Cuff Size: Standard 02-09-2007 15:46-0400 Head Circumference 0 cm Breanna Castañeda [facility] Medicine Work Phone: 02-09-2007 15:46-0400 Head Occipital-frontal circumference 0 cm PANFILO Broussard LPN [facility]; [facility] Work Phone: 02-09-2007 15:46-0400 Height 0 cm PANFILO Broussard LPN [facility] Work Phone: 02-09-2007 15:46-0400 Pulse (Heart Rate) 70 /min PANFILO Broussard LPN [facility] Work Phone: Comment on above: Pattern: Regular 02-09-2007 15:46-0400 Respiratory Rate 20 /min PANFILO Broussard LPN [facility] Work Phone: Comment on above: Pattern: Unlabored 02-09-2007 15:46-0400 Weight 0 kg Breanna Castañeda [facility] Work Phone: 01-19-2007 11:18-0400 Body weight 87.09 kg Jennifer Anthony LPN [facility] Work Phone: 01-19-2007 11:18-0400 BP Diastolic 76 mm[Hg] Jennifer Anthony LPN [facility] Work Phone: Comment on above: Patient Position: Sitting; Cuff Location : Left Arm; Cuff Size: Standard 01-19-2007 11:18-0400 BP Systolic 122 mm[Hg] Jennifer Anthony LPN [facility] Work Phone: Comment on above: Patient Position: Sitting; Cuff Location : Left Arm; Cuff Size: Standard 01-19-2007 11:18-0400 Head Circumference 0 cm Breanna Henryja [facility] Internal Medicine Work Phone: 01-19-2007 11:18-0400 Head Occipital-frontal circumference 0 cm Jennifer Anthony LPN [facility]; [facility] Work Phone: 01-19-2007 11:18-0400 Height 0 cm Jennifer Anthony LPN [facility] Work Phone: 01-19-2007 11:18-0400 Pulse (Heart Rate) 74 /min Jennifer Anthony LPN [facility] Work Phone: Comment on above: Pattern: Regular 01-19-2007 11:18-0400 Respiratory Rate 18 /min Jennifer Anthony LPN [facility] Work Phone: Comment on above: Pattern: Unlabored 01-19-2007 11:18-0400 Weight 87.09 kg Breanna Castañeda [facility] Medicine Work Phone: 01-07-2007 11:52-0400 Body Temperature 97.7 [degF] PANFILO Broussard LPN [facility] Work Phone: Comment on above: Method: Oral 01-07-2007 11:52-0400 Body weight 87.09 kg PANFILO Broussard LPN [facility] Medicine Work Phone: 01-07-2007 11:52-0400 BP Diastolic 78 mm[Hg] PANFILO Broussard LPN [facility] Work Phone: Comment on above: Patient Position: Sitting; Cuff Location : Left Arm; Cuff Size: Standard 01-07-2007 11:52-0400 BP Systolic 120 mm[Hg] PANFILO Bobo KIANNA [facility] Work Phone: Comment on above: Patient Position: Sitting; Cuff Location : Left Arm; Cuff Size: Standard 01-07-2007 11:52-0400 Head Circumference 0 cm Breanna Castañeda [facility] Work Phone: 01-07-2007 11:52-0400 Head Occipital-frontal circumference 0 cm PANFILO Broussard LPN [facility]; [facility] Work Phone: 01-07-2007 11:52-0400 Height 0 cm PANFILOTURNER Broussard LPN [facility] Work Phone: 01-07-2007 11:52-0400 Pulse (Heart Rate) 74 /min PANFILO Broussard LPN [facility] Work Phone: Comment on above: Pattern: Regular 01-07-2007 11:52-0400 Respiratory Rate 20 /min PANFILOTURNER Broussard LPN [facility] Work Phone: Comment on above: Pattern: Unlabored 01-07-2007 11:52-0400 Weight 87.09 kg Breanna Castañeda [facility] Work Phone: 12-31-2006 11:51-0400 Body Temperature 98.8 [degF] Fina Crain RN [facility] Work Phone: Comment on above: Method: Oral 12-31-2006 11:51-0400 Body weight 87.09 kg Fina Crain RN [facility] Work Phone: 12-31-2006 11:51-0400 BP Diastolic 64 mm[Hg] Fina Crain RN [facility] Work Phone: Comment on above: Patient Position: Sitting; Cuff Location : Right Arm; Cuff Size: Standard 12-31-2006 11:51-0400 BP Systolic 116 mm[Hg] Fina Crain RN [facility] Work Phone: Comment on above: Patient Position: Sitting; Cuff Location : Right Arm; Cuff Size: Standard 12-31-2006 11:51-0400 Head Circumference 0 [facility] Work Phone: 12-31-2006 11:51-0400 Head Occipital-frontal circumference 0 cm Fina Crain RN [facility]; [facility] Work Phone: 12-31-2006 11:51-0400 Height 0 cm Fina Crain RN [facility] Work Phone: 12-31-2006 11:51-0400 Pulse (Heart Rate) 80 /min Fina Crain RN [facility] Work Phone: Comment on above: Pattern: Regular 12-31-2006 11:51-0400 Respiratory Rate 16 /min Fina Crain RN [facility] Work Phone: Comment on above: Pattern: Unlabored 12-31-2006 11:51-0400 Weight 87.09 [facility] Work Phone: 12-16-2006 09:23-0400 Body Temperature 97.8 [degF] ANTHONY BANKS [employer]ION MANAGER Work Phone: [facility] Work Phone: Comment on above: Method: Oral 12-16-2006 09:23-0400 Body weight 0 kg ANTHONY BANKS [employer] LOSS PREVENTION MANAGER Work Phone: [facility] Work Phone: 12-16-2006 09:23-0400 BP Diastolic 92 mm[Hg] ANTHONY ESCOTORAD DISTRICT LOSS [employer]ION MANAGER Work Phone: [facility] Work Phone: Comment on above: Patient Position: Sitting; Cuff Location : Undefined; Cuff Size: Undefined 12-16-2006 09:23-0400 BP Systolic 138 mm[Hg] ANTHONY ESCOTORAD DISTRICT LOSS [employer]ION MANAGER Work Phone: [facility] Work Phone: Comment on above: Patient Position: Sitting; Cuff Location : Undefined; Cuff Size: Undefined 12-16-2006 09:23-0400 Head Circumference [facility] Work Phone: 12-16-2006 09:23-0400 Head Occipital-frontal circumference 0 cm ANTHONY BANKS CNP Work Phone: [facility]; [facility] Work Phone: 12-16-2006 09:23-0400 Height 0 cm ANTHONY BANKS [employer] LOSS PREVENTION MANAGER Work Phone: [facility] Work Phone: 12-16-2006 09:23-0400 Pulse (Heart Rate) 80 /min ANTHONY BANKS CNP Work Phone: [facility] Work Phone: Comment on above: Pattern: Regular 12-16-2006 09:23-0400 Weight 0 kg Breanna Castañeda [facility] Work Phone: 11-16-2006 11:44-0400 Body Temperature 98.4 [degF] Fina Crain RN [facility] Work Phone: Comment on above: Method: Oral 11-16-2006 11:44-0400 Body weight 0 kg Fina Crain RN [facility] Work Phone: 11-16-2006 11:44-0400 BP Diastolic 82 mm[Hg] Fina Crain RN [facility] Work Phone: Comment on above: Patient Position: Sitting; Cuff Location : Right Arm; Cuff Size: Standard 11-16-2006 11:44-0400 BP Systolic 124 mm[Hg] Fina Crain RN [facility] Work Phone: Comment on above: Patient Position: Sitting; Cuff Location : Right Arm; Cuff Size: Standard 11-16-2006 11:44-0400 Head Circumference 0 cm Breanna Castañeda [facility] Work Phone: 11-16-2006 11:44-0400 Head Occipital-frontal circumference 0 cm Fina Crain RN [facility]; [facility] Work Phone: 11-16-2006 11:44-0400 Height 0 cm Fina Crain RN [facility] Work Phone: 11-16-2006 11:44-0400 Pulse (Heart Rate) 76 /min Fina Crain RN [facility] Work Phone: Comment on above: Pattern: Regular 11-16-2006 11:44-0400 Respiratory Rate 18 /min Fina Crain RN [facility] Work Phone: Comment on above: Pattern: Unlabored 11-16-2006 11:44-0400 Weight 0 kg Breanna Castañeda [facility] Work Phone: 10-05-2006 16:38-0400 Body Temperature 98.6 [degF] PANFILO Broussard LPN [facility] Work Phone: Comment on above: Method: Oral 10-05-2006 16:38-0400 Body weight 0 kg PANFILO Broussard REGISTERED NURSE PRACTITIONER [facility] Work Phone: 10-05-2006 16:38-0400 BP Diastolic 80 mm[Hg] PANFILO Broussard LPN [facility] Work Phone: Comment on above: Patient Position: Sitting; Cuff Location : Left Arm; Cuff Size: Standard 10-05-2006 16:38-0400 BP Systolic 120 mm[Hg] PANFILO Broussard LPN [facility] Work Phone: Comment on above: Patient Position: Sitting; Cuff Location : Left Arm; Cuff Size: Standard 10-05-2006 16:38-0400 Head Circumference 0 cm Breanna Castañeda [facility] Work Phone: 10-05-2006 16:38-0400 Head Occipital-frontal circumference 0 cm PANFILO Broussard LPN [facility]; [facility] Work Phone: 10-05-2006 16:38-0400 Height 0 cm PANFILO Broussard LPN [facility] Work Phone: 10-05-2006 16:38-0400 Pulse (Heart Rate) 84 /min PANFILO Broussard LPN [facility] Work Phone: Comment on above: Pattern: Regular 10-05-2006 16:38-0400 Respiratory Rate 20 /min PANFILO Broussard LPN [facility] Work Phone: Comment on above: Pattern: Unlabored 10-05-2006 16:38-0400 Weight 0 kg Breanna Castañeda [facility] Work Phone: 09-24-2006 08:25-0400 Body weight 0 kg Breanna Castañeda [facility] Work Phone: 09-24-2006 08:25-0400 BP Diastolic 84 mm[Hg] Breanna Castañeda [facility] Work Phone: Comment on above: Patient Position: Sitting; Cuff Location : Left Arm; Cuff Size: Standard 09-24-2006 08:25-0400 BP Systolic 134 mm[Hg] Breanna Castañeda [facility] Work Phone: Comment on above: Patient Position: Sitting; Cuff Location : Left Arm; Cuff Size: Standard 09-24-2006 08:25-0400 Head [facility]umference 0 [facility] Work Phone: 09-24-2006 08:25-0400 Head Occipital-frontal circumference 0 cm Breanna Castañeda [facility] Work Phone: [facility]; [facility] Work Phone: 09-24-2006 08:25-0400 Height 0 cm Breanna Henryja [facility] Work Phone: 09-24-2006 08:25-0400 Pulse (Heart Rate) 60 /min [facility] Work Phone: Comment on above: Pattern: Regular 09-24-2006 08:25-0400 Respiratory Rate 16 /min Breanna Castañeda [facility] Work Phone: Comment on above: Pattern: Unlabored 09-24-2006 08:25-0400 [facility] Work Phone: 08-13-2006 08:10-0500 Body Temperature 98.9 [degF] Fina Crain RN [facility] Work Phone: Comment on above: Method: Oral 08-13-2006 08:10-0500 Body weight 0 kg Fina Crain RN [facility] Work Phone: 08-13-2006 08:10-0500 BP Diastolic 82 mm[Hg] Fina Crain RN [facility] Work Phone: Comment on above: Patient Position: Sitting; Cuff Location : Right Arm; Cuff Size: Standard 08-13-2006 08:10-0500 BP Systolic 124 mm[Hg] Fina Crain RN [facility] Work Phone: Comment on above: Patient Position: Sitting; Cuff Location : Right Arm; Cuff Size: Standard 08-13-2006 08:10-0500 [facility] Work Phone: 08-13-2006 08:10-0500 Head Occipital-frontal circumference 0 cm Fina Crain RN [facility]; [facility] Work Phone: 08-13-2006 08:10-0500 Height 0 cm Fina Crain RN [facility] Work Phone: 08-13-2006 08:10-0500 Pulse (Heart Rate) 76 /min Fina Crain RN [facility] Work Phone: Comment on above: Pattern: Regular 08-13-2006 08:10-0500 Respiratory Rate 16 /min Fina Crain RN [facility] Work Phone: Comment on above: Pattern: Unlabored 08-13-2006 08:10-0500 Weight 0 kg [facility] Elaineja [facility] Work Phone: 07-30-2006 08:27-0500 Body Temperature 98.7 [degF] PANFILO Broussard LPN [facility] Work Phone: Comment on above: Method: Oral 07-30-2006 08:27-0500 Body weight 0 kg PANFILO Broussard LPN [facility] Work Phone: 07-30-2006 08:27-0500 BP Diastolic 80 mm[Hg] PANFILO Broussard LPN [facility] Work Phone: Comment on above: Patient Position: Sitting; Cuff Location : Left Arm; Cuff Size: Standard 07-30-2006 08:27-0500 BP Systolic 120 mm[Hg] PANFILO Broussard LPN [facility] Work Phone: Comment on above: Patient Position: Sitting; Cuff Location : Left Arm; Cuff Size: Standard 07-30-2006 08:27-0500 Head Circumference 0 [facility] Work Phone: 07-30-2006 08:27-0500 Head Occipital-frontal circumference 0 cm PANFILO Broussard LPN [facility]; [facility] Work Phone: 07-30-2006 08:27-0500 Height 0 cm PANFILO Bobo HUTCHISON [facility] Work Phone: 07-30-2006 08:27-0500 Pulse (Heart Rate) 70 /min PANFILO Broussard LPN [facility] Work Phone: Comment on above: Pattern: Regular 07-30-2006 08:27-0500 Pulse Oximetry 96 % [facility] Work Phone: Comment on above: Room air 07-30-2006 08:27-0500 Respiratory Rate 20 /min PANFILO Broussard LPN [facility] Work Phone: Comment on above: Pattern: Unlabored 07-30-2006 08:27-0500 SaO2% (BldA) [Mass fraction] 96 % PANFILO Broussard LPN [facility]; [facility] Work Phone: 07-30-2006 08:27-0500 [facility] Work Phone: 06-16-2006 08:18-0500 Body Temperature 99.1 [degF] Poppy Seals [facility] Work Phone: Comment on above: Method: Undefined 06-16-2006 08:18-0500 Body weight 0 kg Poppy Seals [facility] Work Phone: 06-16-2006 08:18-0500 BP Diastolic 88 mm[Hg] Poppy Seals [facility] Work Phone: Comment on above: Patient Position: Sitting; Cuff Location : Left Arm; Cuff Size: Standard 06-16-2006 08:18-0500 BP Systolic 134 mm[Hg] Poppy Seals [facility] Work Phone: Comment on above: Patient Position: Sitting; Cuff Location : Left Arm; Cuff Size: Standard 06-16-2006 08:18-0500 Head Circumference 0 cm [facility] Work Phone: 06-16-2006 08:18-0500 Head Occipital-frontal circumference 0 cm Poppy Seals LPN [facility]; [facility] Work Phone: 06-16-2006 08:18-0500 Height 0 cm Poppy Seals LPN [facility] Work Phone: 06-16-2006 08:18-0500 Pulse (Heart Rate) 76 /min Poppy Seals LPN [facility] Work Phone: Comment on above: Pattern: Regular 06-16-2006 08:18-0500 Respiratory Rate 20 /min Poppy Seals LPN [facility] Work Phone: Comment on above: Pattern: Undefined 06-16-2006 08:18-0500 Weight 0 kg Breanna Castañeda [facility] Work Phone: Encounters Encounter Date Encounter Type Care Provider Facility Start: 04-12-2025 ambulatory Solange Cross Facility:[facility] Start: 04-12-2025 Evaluation and management of inpatient Padmini Barth Facility:[facility] Start: 04-11-2025 ambulatory Earl Reedy Facility:[facility] Start: 04-11-2025 End: 04-12-2025 Evaluation and management of inpatient Michael Peraza Facility:[facility] Start: 04-10-2025 ambulatory Padmini Barth Facilit y:[facility] Start: 04-09-2025 ambulatory Earltristan Fountain Facility:[facility] Start: 04-06-2025 End: 04-06-2025 Emergency department patient visit Khadijah Seymour Facility:[facility] Start: 04-06-2025 End: 04-06-2025 Emergency department patient visit Lyric Weaver Facility:[facility] Start: 08-27-2022 Evaluation and management of inpatient [facility] 3 Start: 05-16-2022 ambulatory Lyric Weaver CNP [facility] Start: 05-16-2022 End: 05-16-2022 Office outpatient visit 15 minutes Lyric Weaver CNP Work Phone: [facility] Start: 04-09-2022 End: 04-09-2022 ambulatory BAO PERALTA [facility] Start: 04-09-2022 Telephone encounter Bao doshi MD Work Phone: [facility] Comment on above: Follow Up Start: 03-12-2022 Telephone encounter Ag Orth Work Phone: [facility] Comment on above: Schedule Surgery Start: 02-14-2022 End: 02-14-2022 Office outpatient visit 15 minutes Lyric Weaver CNP Work Phone: [facility] Start: 01-24-2022 End: 01-24-2022 Lyric Weaver CNP Work Phone: [facility] Start: 01-22-2022 End: 01-22-2022 ambulatory BAO PERALTA [facility] Start: 01-22-2022 End: 01-22-2022 Patient encounter procedure Bao Peralta MD Work Phone: [facility] Comment on above: Closed displaced obl ique fracture of shaft of right tibia with routine healing, subsequent encounter (Primary Dx) Start: 12-18-2021 End: 12-18-2021 ambulatory BAO PERALTA [facility] Start: 12-18-2021 End: 12-18-2021 Patient encounter procedure Bao Peralta MD Work Phone: [facility] Comment on above: Closed displaced obl ique fracture of shaft of right tibia with routine healing, subsequent encounter (Primary Dx) Start: 12-17-2021 Telephone encounter Maryellen LOPEZ Comment on above: Follow Up Phone Call (Post Discharge F/U attempt made. No answer. ) Start: 12-11-2021 Telephone encounter Ag Orth Work Phone: [facility] Comment on above: Surgical Followup Start: 12-06-2021 End: 12-09-2021 Evaluation and management of inpatient DELFINA BOYD Facility:[facility] Start: 12-06-2021 End: 12-06-2021 Emergency department patient visit [facility] Start: 11-13-2021 End: 11-13-2021 Office outpatient visit 25 minutes Breanna Castañeda Work Phone: [facility] Start: 08-09-2021 Breanna Castañeda DISTRICT LOSS PREVENTION MANAGER Work Phone: [facility] Start: 08-09-2021 End: 08-09-2021 Office outpatient visit 15 minutes Breanna Castañeda DISTRICT LOSS PREVENTION MANAGER Work Phone: [facility] Start: 05-14-2021 End: 05-14-2021 Breanna Castañeda DISTRICT LOSS PREVENTION MANAGER Work Phone: [facility] Start: 05-13-2021 End: 05-13-2021 Office outpatient visit 40 minutes Breanna Castañeda DISTRICT LOSS PREVENTION MANAGER Work Phone: [facility] Start: 05-10-2021 End: 05-10-2021 Office outpatient visit 15 minutes Breanna Castañeda DISTRICT LOSS PREVENTION MANAGER Work Phone: [facility] Start: 09-19-2020 End: 09-19-2020 Office outpatient visit 25 minutes Breanna Castañeda [facility] Start: 05-21-2020 Review Breanna Katija [facility] Start: 05-21-2020 End: 05-21-2020 Office outpatient visit 15 minutes Breanna Castañeda [facility] Start: 02-15-2020 End: 02-15-2020 Office outpatient visit 15 minutes Breanna Castañeda [facility] Start: 02-06-2020 End: 02-06-2020 Office outpatient visit 15 minutes Breanna Katija [facility] Start: 02-06-2020 Review Breanna Henryterrenceja [facility]gs [facility] Start: 11-04-2019 End: 11-04-2019 Office outpatient visit 25 minutes Breanna Castañeda [facility] Start: 08-23-2019 End: 08-23-2019 Office outpatient visit 15 minutes Breanna Castañeda [facility] Start: 08-22-2019 End: 08-22-2019 Annotation/Addendum Breanna Castañeda [facility] [facility] Start: 08-22-2019 End: 08-22-2019 Breanna Castañeda DISTRICT LOSS PREVENTION MANAGER Work Phone: [facility] Start: 08-15-2019 End: 08-15-2019 Office outpatient visit 15 minutes Breanna Castañeda [facility] Start: 07-12-2019 End: 07-12-2019 Office outpatient visit 25 minutes [facility] Start: 07-05-2019 End: 07-05-2019 Office outpatient visit 25 minutes [facility] Start: 07-20-2018 End: 07-20-2018 Office outpatient visit 15 minutes [facility] Start: 03-23-2018 End: 03-23-2018 Office outpatient visit 25 minutes [facility] Start: 12-04-2017 End: 12-04-2017 Office outpatient visit 15 minutes [facility] Start: 11-23-2017 End: 11-23-2017 Lab Order Breanna [facility] Start: 11-23-2017 End: 11-23-2017 Breanna Castañeda DISTRICT LOSS PREVENTION MANAGER Work Phone: [facility] Start: 11-20-2017 End: 11-20-2017 Office outpatient visit 25 minutes [facility] Start: 09-14-2017 End: 09-14-2017 Annotation/Addendum Breanna [facility]eda [facility] Start: 09-14-2017 End: 09-14-2017 Breanna Elaineterrenceja DISTRICT LOSS PREVENTION MANAGER Work Phone: [facility] Start: 09-02-2017 End: 09-02-2017 Annotation/Addendum Breanna [facility] Start: 09-02-2017 End: 09-02-2017 Breanna Elaineterrenceja DISTRICT LOSS PREVENTION MANAGER Work Phone: [facility] Start: 09-01-2017 End: 09-01-2017 Office outpatient visit 25 minutes [facility] Start: 08-12-2017 End: 08-12-2017 Annotation/Addendum Breanna Cast[facility]eda [facility] Start: 08-12-2017 End: 08-12-2017 Breanna Elaineterrenceja DISTRICT LOSS PREVENTION MANAGER Work Phone: [facility] Start: 08-11-2017 End: 08-11-2017 Office consultation new/estab patient 60 min [facility] Start: 08-10-2017 End: 08-10-2017 Office outpatient visit 15 minutes [facility] Start: 05-14-2016 End: 05-14-2016 Patient encounter procedure [facility] Start: 05-14-2016 End: 05-14-2016 Breanna Castañeda DISTRICT LOSS PREVENTION MANAGER Work Phone: [facility] Start: 01-15-2016 End: 01-15-2016 Patient encounter procedure Breanna Castañeda [facility] Start: 01-15-2016 End: 01-15-2016 Breanna Castañeda DISTRICT LOSS PREVENTION MANAGER Work Phone: [facility] Start: 10-15-2015 End: 10-15-2015 Office outpatient visit 15 minutes Breanna Castañeda [facility] Start: 09-14-2015 End: 09-14-2015 Office outpatient visit 10 minutes Breanna Castañeda [facility] Start: 08-16-2015 End: 08-16-2015 Lab Order [facility] Start: 08-16-2015 End: 08-16-2015 Breanna Castañeda DISTRICT LOSS PREVENTION MANAGER Work Phone: [facility] Start: 08-06-2015 End: 08-06-2015 Lab Order Breanna [facility]añeda [facility] Start: 08-06-2015 End: 08-06-2015 Breanna Castañeda DISTRICT LOSS PREVENTION MANAGER Work Phone: [facility] Start: 07-16-2015 End: 07-16-2015 Periodic preventive med est patient 65yrs& older Breanna Castañeda [facility] Start: 06-04-2015 End: 06-04-2015 Periodic preventive med est patient 40-64yrs Breanna Castañeda [facility] Start: 04-27-2015 End: 04-27-2015 Historical Summary [facility]anna [facility]dea [facility] Start: 04-27-2015 End: 04-27-2015 Breanna Castañeda DISTRICT LOSS PREVENTION MANAGER Work Phone: [facility] Start: 03-26-2015 End: 03-26-2015 Office outpatient visit 15 minutes Breanna Castañeda [facility] Start: 03-16-2014 End: 03-16-2014 Office outpatient visit 15 minutes Breanna Castañeda [facility] Start: 03-09-2014 End: 03-09-2014 Phone Encounter Breanna Cast[facility]eda [facility] Start: 03-09-2014 End: 03-09-2014 Breanna Castañeda DISTRICT LOSS PREVENTION MANAGER Work Phone: [facility] Start: 12-14-2013 End: 12-14-2013 Lab Order Breanna [facility] Start: 12-14-2013 End: 12-14-2013 Breanna Castañeda CNP Work Phone: [facility] Start: 12-13-2013 End: 12-13-2013 Office outpatient visit 25 minutes Breanna Castañeda [facility] Start: 11-29-2013 End: 11-29-2013 Office outpatient visit 25 minutes Breanna Castañeda [facility] Start: 11-07-2013 End: 11-07-2013 Office outpatient visit 15 minutes Breanna Castañeda [facility] Start: 04-21-2013 End: 04-21-2013 Patient encounter procedure Breanna Castañeda [facility] Start: 04-21-2013 End: 04-21-2013 Breanna Castañeda DISTRICT LOSS PREVENTION MANAGER Work Phone: [facility] Start: 02-17-2013 End: 02-17-2013 Patient encounter procedure Breanna Castañeda [facility] Start: 02-17-2013 End: 02-17-2013 Preprocedural examination done Lyric Weaver CNP Work Phone: [facility] Start: 02-17-2013 End: 02-17-2013 Breanna Castañeda DISTRICT LOSS PREVENTION MANAGER Work Phone: [facility] Start: 02-14-2013 End: 02-14-2013 Lab Order Breanna [facility] Start: 02-14-2013 End: 02-14-2013 Breanna Castañeda CNP Work Phone: [facility] Start: 01-14-2013 End: 01-14-2013 Patient encounter procedure Breanna Castañeda [facility] Start: 01-14-2013 End: 01-14-2013 Preprocedural examination done Lyric Weaver CNP Work Phone: [facility] Start: 01-14-2013 End: 01-14-2013 Breanna Castañeda DISTRICT LOSS PREVENTION MANAGER Work Phone: [facility] Start: 11-15-2012 End: 11-15-2012 Patient encounter procedure Breanna Castañeda [facility] Start: 11-15-2012 End: 11-15-2012 Breanna Castañeda CNP Work Phone: [facility] Start: 10-21-2012 End: 10-21-2012 Patient encounter procedure Breanna Castañeda [facility] Start: 10-21-2012 End: 10-21-2012 Breanna Ciesa DISTRICT LOSS PREVENTION MANAGER Work Phone: [facility] Start: 07-22-2012 End: 07-22-2012 Patient encounter procedure Breanna Castañeda [facility] Start: 07-22-2012 End: 07-22-2012 Breanna Castañeda DISTRICT LOSS PREVENTION MANAGER Work Phone: [facility] Start: 03-29-2012 End: 03-29-2012 Patient encounter procedure Breanna Castañeda [facility] Start: 03-29-2012 End: 03-29-2012 Breanna Castañeda DISTRICT LOSS PREVENTION MANAGER Work Phone: [facility] Start: 02-11-2012 End: 02-11-2012 Office outpatient visit 25 minutes Breanna Castañeda [facility] Start: 12-29-2011 End: 12-29-2011 Patient encounter procedure Breanna Castañeda [facility] Start: 12-29-2011 End: 12-29-2011 Breanna Castañeda DISTRICT LOSS PREVENTION MANAGER Work Phone: [facility] Start: 05-12-2011 End: 05-12-2011 Patient encounter procedure Breanna Castañeda [facility] Start: 05-12-2011 End: 05-12-2011 Patient encounter status Lyric Weaver DISTRICT LOSS PREVENTION MANAGER Work Phone: [facility] Start: 05-12-2011 End: 05-12-2011 Breanna Castañeda DISTRICT LOSS PREVENTION MANAGER Work Phone: [facility] Start: 01-06-2011 End: 01-06-2011 Phone Encounter Bre[facility] Cast[facility]eda [facility] Start: 01-06-2011 End: 01-06-2011 Breanna Castañeda DISTRICT LOSS PREVENTION MANAGER Work Phone: [facility] Start: 01-03-2011 End: 01-03-2011 Patient encounter procedure Breanna Castañeda [facility] Start: 01-03-2011 End: 01-03-2011 Breanna Castañeda DISTRICT LOSS PREVENTION MANAGER Work Phone: [facility] Start: 09-26-2010 End: 09-26-2010 Patient encounter procedure Breanna Castañeda [facility] Start: 09-26-2010 End: 09-26-2010 Breanna Castañeda DISTRICT LOSS PREVENTION MANAGER Work Phone: [facility] Start: 08-12-2010 End: 08-12-2010 Patient encounter procedure Breanna Castañeda [facility] Start: 08-12-2010 End: 08-12-2010 Breanna Castañeda DISTRICT LOSS PREVENTION MANAGER Work Phone: [facility] Start: 07-11-2010 End: 07-11-2010 Office outpatient visit 25 minutes Breanna Castañeda [facility] Start: 07-11-2009 End: 07-11-2009 Office outpatient visit 25 minutes Breanna Castañeda [facility] Start: 12-01-2008 End: 12-01-2008 Phone Encounter Breanna Cast[facility]eda [facility] Start: 12-01-2008 End: 12-01-2008 Breanna Castañeda DISTRICT LOSS PREVENTION MANAGER Work Phone: [facility] Start: 11-30-2008 End: 11-30-2008 Patient encounter procedure Breanna Castañeda [facility] Start: 11-30-2008 End: 11-30-2008 Patient encounter status Lyric Weaver DISTRICT LOSS PREVENTION MANAGER Work Phone: [facility] Start: 11-30-2008 End: 11-30-2008 Breanna Castañeda DISTRICT LOSS PREVENTION MANAGER Work Phone: [facility] Start: 09-13-2008 End: 09-13-2008 Office outpatient visit 15 minutes Breanna Castañeda [facility] Start: 08-23-2008 End: 08-23-2008 Patient encounter procedure Breanna Castañeda [facility] Start: 08-23-2008 End: 08-23-2008 Breanna Castañeda DISTRICT LOSS PREVENTION MANAGER Work Phone: [facility] Start: 03-20-2008 End: 03-20-2008 Patient encounter procedure Breanna Castañeda [facility] Start: 03-20-2008 End: 03-20-2008 Breanna Castañeda DISTRICT LOSS PREVENTION MANAGER Work Phone: [facility] Start: 12-28-2007 End: 12-28-2007 Annotation/Addendum Breanna Castañeda [facility] Start: 12-28-2007 End: 12-28-2007 Breanna Castañeda DISTRICT LOSS PREVENTION MANAGER Work Phone: [facility] Start: 12-27-2007 End: 12-27-2007 Office outpatient visit 15 minutes Breanna Castañeda [facility] Start: 12-13-2007 End: 12-13-2007 Patient encounter procedure Breanna Castañeda [facility] Start: 12-13-2007 End: 12-13-2007 Patient encounter status Lyric Weaver DISTRICT LOSS PREVENTION MANAGER Work Phone: [facility] Start: 12-13-2007 End: 12-13-2007 Brenana Castañeda DISTRICT LOSS PREVENTION MANAGER Work Phone: [facility] Start: 11-17-2007 End: 11-17-2007 Office outpatient visit 25 minutes Breanna Castañeda [facility] Start: 10-21-2007 End: 10-21-2007 Patient encounter procedure Breanna Castañeda [facility] Start: 10-21-2007 End: 10-21-2007 Breanna Castañeda DISTRICT LOSS PREVENTION MANAGER Work Phone: [facility] Start: 09-07-2007 End: 09-07-2007 Office outpatient visit 15 minutes Breanna Castañeda [facility] Start: 08-10-2007 End: 08-10-2007 Patient encounter procedure Breanna Castañeda [facility] Start: 08-10-2007 End: 08-10-2007 Breanna Castañeda DISTRICT LOSS PREVENTION MANAGER Work Phone: [facility] Start: 07-15-2007 End: 07-15-2007 Office outpatient visit 15 minutes Breanna Castañeda [facility] Start: 05-11-2007 End: 05-11-2007 Patient encounter procedure Breanna Castañeda [facility] Start: 05-11-2007 End: 05-11-2007 Breanna Castañeda DISTRICT LOSS PREVENTION MANAGER Work Phone: [facility] Start: 04-22-2007 End: 04-22-2007 Office outpatient visit 15 minutes Breanna Castañeda [facility] Start: 02-09-2007 End: 02-09-2007 Office outpatient visit 15 minutes Breanna Castañeda [facility] Start: 01-20-2007 End: 01-20-2007 Historical Summary Bre[facility] Cast[facility]eda [facility] Start: 01-20-2007 End: 01-20-2007 Breanna Castañeda DISTRICT LOSS PREVENTION MANAGER Work Phone: [facility] Start: 01-19-2007 End: 01-19-2007 Nursing evaluation of patient and report Breanna Castañeda [facility] Start: 01-19-2007 End: 01-19-2007 Breanna Castañeda DISTRICT LOSS PREVENTION MANAGER Work Phone: [facility] Start: 01-07-2007 End: 01-07-2007 Patient encounter procedure Breanna Castañeda [facility] Start: 01-07-2007 End: 01-07-2007 Breanna Castañeda DISTRICT LOSS PREVENTION MANAGER Work Phone: [facility] Start: 12-31-2006 End: 12-31-2006 Office outpatient visit 25 minutes Breanna Castañeda [facility] Start: 12-16-2006 End: 12-16-2006 Patient encounter procedure Breanna Castañeda [facility] Start: 12-16-2006 End: 12-16-2006 Breanna Castañeda DISTRICT LOSS PREVENTION MANAGER Work Phone: [facility] Start: 11-16-2006 End: 11-16-2006 Patient encounter procedure Breanna Castañeda [facility] Start: 11-16-2006 End: 11-16-2006 Breanna Castañeda DISTRICT LOSS PREVENTION MANAGER Work Phone: [facility] Start: 10-05-2006 End: 10-05-2006 Patient encounter procedure Breanna Castañeda [facility] Start: 10-05-2006 End: 10-05-2006 Breanna Castañeda DISTRICT LOSS PREVENTION MANAGER Work Phone: [facility] Start: 09-24-2006 End: 09-24-2006 Patient encounter procedure Breanna Castañeda [facility] Start: 09-24-2006 End: 09-24-2006 Breanna Castañeda DISTRICT LOSS PREVENTION MANAGER Work Phone: [facility] Start: 08-13-2006 End: 08-13-2006 Patient encounter procedure Breanna Castañeda [facility] Start: 08-13-2006 End: 08-13-2006 Breanna Castañeda DISTRICT LOSS PREVENTION MANAGER Work Phone: [facility] Start: 07-30-2006 End: 07-30-2006 Patient encounter procedure Breanna Castañeda [facility] Start: 07-30-2006 End: 07-30-2006 Breanna Castañeda DISTRICT LOSS PREVENTION MANAGER Work Phone: [facility] Start: 06-16-2006 End: 06-16-2006 Office outpatient visit 25 minutes Breanna Castañeda [facility] Start: 05-13-2006 End: 05-13-2006 Historical Summary Breanna Cast[facility]eda [facility] Start: 05-13-2006 End: 05-13-2006 Breanna Castañeda DISTRICT LOSS PREVENTION MANAGER Work Phone: [facility] Start: 05-07-2006 End: 05-07-2006 Historical Summary Breanna Castañeda [facility] Start: 05-07-2006 End: 05-07-2006 Breanna Castañeda DISTRICT LOSS PREVENTION MANAGER Work Phone: [facility] End: 07-22-2012 Physical examination Utilization Management Manager [facility] Work Phone: End: 04-21-2013 Preprocedural examination done Utilization Management Manager [facility]; [facility] Work Phone: Procedures Date Procedure Procedure Detail Performing Clinician Start: 09-09-2022 End: 09-10-2022 Procedure Note: See Note; NOTES: [facility] [address] [place] [address] OFFICE VISIT Date of Service: 09/09/22 MR#: [id number] Acct: [id number] Name: LASHA SMITH Rep #: [id number] : 1960 Provider: Dr. Debbi agustin MD Age/Sex: 61/M Location: [facility] Status: Signed Intake Vital Signs 08/27/22 09:56 Height 5 ft 8 in Intake Visit Reasons: S/P BECKY DRAIN REMOVAL Chief Complaint: Routine f/u lap [facility] [employer] Required: No Is patient in pain?: No Allergies Sulfa (Sulfonamide Antibiotics) Allergy (Severe, Verified 09/09/22 09:47) Hives, Sweating, SOB Medications metformin 500 mg tablet 500 mg PO DAILY 10/21/15 [History Confirmed 09/09/22] gemfibrozil 600 mg tablet 600 mg PO BID #60 tabs 06/18/17 [Rx Confirmed 09/09/22] amitriptyline 50 mg tablet 50 mg PO QHS 09/09/17 [History Confirmed 09/09/22] omeprazole 40 mg capsule,delayed release 40 mg PO BID 09/09/17 [History Confirmed 09/09/22] escitalopram oxalate 20 mg tablet 20 mg PO QHS 10/17/17 [History Confirmed 09/09/22] aspirin 81 mg tablet,delayed release (Adult Aspirin Regimen) 81 mg PO DAILY 04/16/18 [History Confirmed 09/09/22] cholecalciferol (vitamin D3) 100 mcg (4,000 unit) capsule 4,000 unit PO DAILY 07/27/18 [History Confirmed 09/09/22] losartan 50 mg tablet 50 mg PO QDAY #90 tabs 07/27/18 [Rx Confirmed 09/09/22] metoprolol succinate 25 mg tablet,extended release 24 hr 25 mg PO DAILY #90 tabs 07/27/18 [Rx Confirmed 09/09/22] metoprolol succinate 25 mg tablet,extended release 24 hr 25 mg PO DAILY #30 tabs 07/29/18 [Rx Confirmed 09/09/22] levofloxacin 750 mg tablet 750 mg PO DAILY #7 tabs 09/01/22 [Rx Confirmed 09/09/22] Subjective Details: 61-year-old male s/p lap appy with BECKY drain due to perf appy for f/u. Patient has completed his antibiotics. Patient tolerated diet and having bowel function. Patient denies any abdominal pain. Objective Details: Abdomen soft, nondistended, nontender, incisions well-healed including previous BECKY site. Coding Level of Care Code Global Post Op Diagnoses S/P laparoscopic appendectomy Z90.49 Acute perforated appendicitis K35.32 Diabetes E11.9 [facility] Medical History (Updated 09/06/22 @ 00:05 by Background Daemon) Atherosclerotic heart disease of [place] coronary artery without angina pectoris Diabetes GERD (gastroesophageal reflux disease) HTN (hypertension) Hx of benign neoplasm of brain Hyperlipidemia YE (obstructive sleep apnea) TIA (transient ischemic attack) Tobacco use disorder Surgical History (Updated 08/29/22 @ 09:[address] Debbi Cramer MD) H/O cystoscopy History of arthroscopy of right knee history of benign tumor of parotid gland History of brain surgery History of left knee surgery History of lumbar surgery S/P herniorrhaphy S/P laparoscopic appendectomy Family History (Updated 08/27/22 @ 04:[address] Joselyn Cano MD) Father CAD (coronary artery disease) Myocardial infarction Hypertension Heart disease Mother Heart disease Atrial arrhythmia Social History (Updated 08/27/22 @ 04:[address] Joselyn Cano MD) household members: none Smoking Status: Current some day smoker tobacco type: cigarettes alcohol intake: never substance use type: does not use Assessment and Plan (No Qualifiers) Assessment and Plan (1) S/P laparoscopic appendectomy: Status: Acute (2) Acute perforated appendicitis: Status: Resolved (3) Diabetes: Status: Acute Plan Pt doing well, brenton PO, completed abx, +BM, incisions and previous BECKY site healing well. f/u PRN- pt agreeable with plan. 09/10/22 1035 <Electronically signed by Debbi Cramer MD> Date Debbi Cramer MD Cosigner Signature: Date (if applicable) CC: EXCEL DEVELOPER-C Lyric Weaver [facility] Work Phone: Start: 09-04-2022 End: 09-04-2022 Procedure Note: See Note; NOTES: [facility] [address] [place] [address]. [address] [place] [address] OFFICE VISIT Date of Service: 09/02/22 MR#: [id number] Acct: [id number] Name: LASHA SMITH Rep #: [id number] : 1960 Provider: Dr. Debbi agustin MD Age/Sex: 61/M Location: [facility] [place] Status: Signed Intake Vital Signs 08/27/22 09:56 Height 5 ft 8 in Intake Visit Reasons: BECKY drain removal Chief Complaint: Routine f/u Allergies Sulfa (Sulfonamide Antibiotics) Allergy (Severe, Verified 03/11/22 13:21) Hives, Sweating, SOB Subjective Details: 61-year-old male s/p lap appy with BECKY drain due to perf appy for f/u and BECKY removal. BECKY serous minimal output. Pt changed to levofloxicin 750 mg PO daily x 7 days due to culture results. brenton PO, +BM, denies abd pain. Objective Details: abd: incision c/d/i; BECKY serous- removed in office, soft, minimally tender to incisions, no PS Coding Level of Care Code Global Post Op Diagnoses S/P laparoscopic appendectomy Z90.49 Acute perforated appendicitis K35.32 Diabetes E11.9 [facility] Medical History (Updated 08/29/22 @ 09:[address] Debbi Cramer MD) Atherosclerotic heart disease of [place] coronary artery without angina pectoris Diabetes GERD (gastroesophageal reflux disease) HTN (hypertension) Hx of benign neoplasm of brain Hyperlipidemia YE (obstructive sleep apnea) TIA (transient ischemic attack) Tobacco use disorder Surgical History (Updated 08/29/22 @ 09:[address] Debbi Cramer MD) H/O cystoscopy History of arthroscopy of right knee history of benign tumor of parotid gland History of brain surgery History of left knee surgery History of lumbar surgery S/P herniorrhaphy S/P laparoscopic appendectomy Family History (Updated 08/27/22 @ 04:[address] Joselyn Cano MD) Father CAD (coronary artery disease) Myocardial infarction Hypertension Heart disease Mother Heart disease Atrial arrhythmia Social History (Updated 08/27/22 @ 04:[address] Joselyn Cano MD) household members: none Smoking Status: Current some day smoker tobacco type: cigarettes alcohol intake: never substance use type: does not use Assessment and Plan (No Qualifiers) Assessment and Plan (1) S/P laparoscopic appendectomy: Status: Acute (2) Acute perforated appendicitis: Status: Resolved (3) Diabetes: Status: Acute Plan BECKY removed in office. complete abx. f/u in 1 week- pt agreeable with plan. 09/04/222122 <Electronically signed by Debbi Cramer MD> Date Debbi Cramer MD Cosigner Signature: Date (if applicable) CC: Lyric Weaver [facility] Work Phone: Start: 08-27-2022 Plain chest X-ray Start: 08-27-2022 End: 08-27-2022 Procedure Note: See Note; NOTES: [facility] Medical Records Department [address] [place] [address] Emergency Department Summary 08/27/22 MR#: [id number] Acct: [id number] Name: LASHA SMITH Rep #: [id number] : 1960 61 From: Garret Mark MD PCP: Lyric Weaver [employer] DEVELOPER-Charlie Status:REG ER Location: ED HPI HPI - GI History of Present Illness Chief Complaint: Abd Pain Informant: patient Abdominal Pain/Flank Pain Onset: Yesterday Context: - (Awoke with pain) Timing: Continuous Quality: Aching Location: RLQ (No radiation into back, scrotum. No migration.) Current Severity: Moderate Maximum Severity: Moderate Worsened by: Car ride Relieved by: Nothing Nausea/Vomiting/Emesis GI Symptom: Positive for Nausea; Negative for Vomiting Diarrhea/Melena/Hematochezia GI Symptom: Negative for Diarrhea, Melena or Hematochezia Associated Symptoms Associated Symptoms: Negative for Dysuria, Frequency or Hematuria Narrative Narrative: Patient woke up with moderate-severe pain in the right lower quadrant has persisted for about 24 hours. Never had this before. Prior herniorrhaphy, no other abdominal surgeries except for when he was a baby and he thinks that was a small hernia as well. No fevers. No urinary symptoms. Decreased appetite today due to this. [facility] Medical History (Updated 08/27/22 @ 05:[address] Garret Mark MD) Atherosclerotic heart disease of [place] coronary artery without angina pectoris Diabetes GERD (gastroesophageal reflux disease) HTN (hypertension) Hx of benign neoplasm of brain Hyperlipidemia YE (obstructive sleep apnea) TIA (transient ischemic attack) Tobacco use disorder Home Medications metformin 500 mg tablet 500 mg PO DAILY 10/21/15 [History Last Taken 11/14/15 04:30 500 MG] gemfibrozil 600 mg tablet 600 mg PO BID #60 tabs 06/18/17 [Rx Last Taken Unknown] amitriptyline 50 mg tablet 50 mg PO QHS 09/09/17 [History Last Taken Unknown] omeprazole 40 mg capsule,delayed release 40 mg PO BID 09/09/17 [History Last Taken Unknown] escitalopram oxalate 20 mg tablet 20 mg PO QHS 10/17/17 [History Last Taken Unknown] aspirin 81 mg tablet,delayed release (Adult Aspirin Regimen) 81 mg PO DAILY 04/16/18 [History Last Taken Unknown] cholecalciferol (vitamin D3) 100 mcg (4,000 unit) capsule 4,000 unit PO DAILY 07/27/18 [History Last Taken Unknown] losartan 50 mg tablet 50 mg PO QDAY #90 tabs 07/27/18 [Rx Last Taken Unknown] metoprolol succinate 25 mg tablet,extended release 24 hr 25 mg PO DAILY #90 tabs 07/27/18 [Rx Last Taken Unknown] metoprolol succinate 25 mg tablet,extended release 24 hr 25 mg PO DAILY #30 tabs 07/29/18 [Rx Last Taken Unknown] Allergy/AdvReac Type Severity Reaction Status Date / Time Sulfa (Sulfonamide Allergy Severe Hives, Verified 03/11/22 13:21 Antibiotics) Sweating, SOB Family History (Updated 08/27/22 @ 04:[address] Joselyn Cano MD) Father CAD (coronary artery disease) Myocardial infarction Hypertension Heart disease Mother Heart disease Atrial arrhythmia Surgical History (Updated 08/27/22 @ 05:[address] Garret Mark MD) H/O cystoscopy History of arthroscopy of right knee history of benign tumor of parotid gland History of brain surgery History of left knee surgery History of lumbar surgery S/P herniorrhaphy Social History (Updated 08/27/22 @ 04:[address] Joselyn Cano MD) household members: none Smoking Status: Current some day smoker tobacco type: cigarettes alcohol intake: never substance use type: does not use ROS ROS ED Constitutional Constitutional ED: Denies chills or fever(s) Eyes Eyes: Denies change in vision or diplopia ENT ENT ED: Denies rhinorrhea or sore throat Cardiovascular Cardiovascular: Denies chest pain or palpitations Respiratory/Chest Respiratory/Chest: Denies cough or dyspnea Gastrointestinal Gastrointestinal: Reports abdominal pain and nausea; Denies diarrhea or vomiting Genitourinary Genitourinary ED: Denies dysuria or hematuria Musculoskeletal Musculoskeletal: Denies back pain or neck pain Integumentary Denies abscess or rash Neurologic Neurologic: Denies headache(s), paresthesias or weakness Psychiatric Psychiatric: Denies anxiety or suicidal thoughts EXAM Physical Exam Const Vital Signs: 08/27/22 03:21 08/27/22 04:31 Temperature 98.4 F Temperature Source Oral Pulse Rate 120 H 108 H Respiratory Rate 18 16 Blood Pressure 160/90 H 175/98 H Blood Pressure Mean 113 123 Pulse Ox 94 98 Oxygen Delivery Method Room Air Room Air Positive well nourished, well developed and obese General Appearance ED: well developed and NAD Nutritional Appearance: obese HEENT Reports moist mucous membranes normocephalic and atraumatic Eyes PERRL and EOMs intact bilaterally Neck full ROM and supple Resp normal respiratory effort and clear to auscultation bilaterally Cardio regular rate, regular rhythm and no murmurs Rate: tachycardic GI non-distended GI Narrative: Tender throughout right lower quadrant, with some mild involuntary guarding, no rebound tenderness. Positive psoas. Negative Rovsing, negative obturator. No other areas of abdominal tenderness. Auscultation: normoactive bowel sounds Palpation: soft Back/Spine no CVA tenderness General Back: other FROM Extremity normal to inspection General Extremety ED: Negative for edema, pulses abnormal or tenderness General Extremity: Negative for edema or pulses abnormal Neuro oriented x3, CN's II-XII intact bilaterally and no sensory deficits noted Sensorium / Orientation: awake and alert Motor Exam: strength 5/5 throughout Skin no rashes or lesions noted and no wounds MDM MDM MDM Narrative Medical decision making narrative: With patient waking up with significant pain at the beginning, kidney stones in the differential diagnosis, but given how tender the patient is throughout the right lower quadrant, also concern for acute appendicitis. Labs noted, he has a significant leukocytosis. Obtained a CT with IV contrast, on my interpretation it appears to show nonruptured acute appendicitis with an appendicolith. My interpretation of the CT agrees with that of the radiologist. Started on Zosyn, discussed with surgery Dr. Cramer, plan is for emergent surgery. Pain well controlled on morphine. Preoperative 1 view chest x-ray my interpretation is unremarkable. Preoperative EKG on my interpretation sinus tachycardia at 106, no acute injury pattern and otherwise normal EKG. Lab Data Attestation: I reviewed the patient's lab results. Labs: Laboratory Results - last 24 hr 08/27/22 08/27/22 08/27/22 03:29 03:29 04:52 WBC 25.2 H RBC 5.41 Hgb 16.9 H Hct 48.7 MCV 90.0 MCH 31.2 MCHC 34.7 RDW Std Deviation 45.9 H RDW Coeff of Gogo 13.8 Plt Count 220 MPV 10.7 Immature Gran % (Auto) 0.600 Neut % (Auto) 81.2 H Lymph % (Auto) 6.1 L Webster % (Auto) 11.9 H Eos % (Auto) 0.0 Baso % (Auto) 0.2 Absolute Neuts (auto) 20.4 H Absolute Lymphs (auto) 1.54 Nucleated RBC % 0 Diff Path Review May foll Sodium 131 L Potassium 4.0 Chloride 99 Carbon Dioxide 21.0 Anion Gap 11 BUN 15 Creatinine 0.88 Estim Creat Clear Calc 83.13 Est GFR (MDRD) Af Amer 112 Est GFR (MDRD) Non-Af 92 BUN/Creatinine Ratio 17.0 Glucose 230 H Calcium 9.3 Urine Color Yellow Urine Clarity Clear Urine pH 6.0 Ur Specific Monon 1.020 Urine Protein 30 H Urine Glucose (UA) 1000 H Urine Ketones 150 A* Urine Occult Blood 10 H Urine Nitrite Negative Urine Bilirubin Negative Urine Urobilinogen 1 H Ur Leukocyte Esterase 25 H Urine RBC 0-5 SEEN Urine WBC 0-5 SEEN Ur Squamous Epith Cells 0 SEEN Urine Bacteria 1+ Urine Mucus 2+ Radiography Diagnostic Testing: Clinical Impression(s) from Imaging Studies Abdomen/Pelvis CT 08/27/22 03:45 IMPRESSION: Acute appendicitis with a 1.5 cm appendicolith in the appendiceal orifice. Prominent adjacent inflammation but no definite evidence of rupture. Electronically Signed: Rusty Puente MD at 5:32 EDT Reading Location ID and State: [address] [place] [address] Tel , Service support , ADDENDUM: 08/27/22 0541 IMPRESSION: Acute appendicitis with a 1.5 cm appendicolith in the appendiceal orifice. Prominent adjacent inflammation but no definite evidence of rupture. N.B. : The above Results were Read Back by Rusty Puente MD to Garret Mark MD, and understanding confirmed on 08/27/2022 05:34:22 (ET). Electronically Signed: Rusty Puente MD at 5:32 EDT Reading Location ID and State: [address] [place] [address] Tel , Service support , Rhythm Strip Rhythm Strip: Sinus Tach Rate: 110 Ectopy: None Critical Care Time Critical Care Time: Yes Critical care time (excluding procedures): 30-74 minutes (35 min), Including time spent:, Discussing w/Patient /or Family/Masseur/Masseuse, Discussing w/Consultants, Arranging Admission or Transfer and Performing Direct Patient Care at Bedside Discharge Plan Dx/Rx/DC Orders Clinical Impression: Acute appendicitis Disposition Disposition: Acute Care Hospital [facility] What to do if you have Problems For any increased pain, shortness of breath, bleeding, nausea or vomiting, chest pain, or any unexpected problems, contact your Primary Care Provider. Call [facility] ([phone]) or report to the closest Emergency Room. Call 911 if necessary. 08/27/22 0546 <Electronically signed by Garret Mark MD> Cosigner Signature (if applicable): CC: EXCEL DEVELOPER-C Lyric Weaver Signed Lyric Weaver [facility] Work Phone: Start: 08-27-2022 Computed tomography of abdomen and pelvis with intravenous contrast Start: 08-27-2022 End: 08-27-2022 Procedure Note: See Note; NOTES: [facility] [address] [place] [id number] Abdomen/Pelvis W IV Cont ONLY MR#: [id number] Acct: [id number] Name: LASHA SMITH Ja Rep #: [id number] : 1960 M 61 From: Rusty Steiner PCP: HARINI Espinoza Status: REG ER Study: Abdomen/Pelvis W IV Cont ONLY Date of Exam: Exam# [id number] Ordering Dr: Garret Mark MD We are attempting to reach an attending provider to discuss findings. An addendum with communication details will be sent when the communication is complete. STUDY: CT ABDOMEN AND PELVIS WITH CONTRAST REASON FOR EXAM: Male, 61 years old. RLQ pain. Diabetes hypertension. TECHNIQUE: IV Contrast: IV 100mL Isovue-300 Enteric contrast: None administered. Axial images obtained. Coronal and sagittal reformatted images provided. Individualized dose optimization techniques were used for this CT. COMPARISON: 10/21/2015 CT abdomen pelvis. FINDINGS: Partially visualized lower chest: Lung bases unremarkable. Liver: No concerning lesions. Gallbladder and biliary tree: No visible gallstones. No pericholecystic inflammation. No biliary ductal dilation. Pancreas: No pancreatic lesions or inflammation. Spleen: Normal size, no splenic lesions. Adrenal glands: No concerning masses. Kidneys and ureters: No hydronephrosis or renal stones. No concerning masses. No ureteral dilation. Bowel: 1.5 cm appendicolith in the appendiceal orifice. Dilated inflamed appendix curls medially, posteriorly and then anteriorly off the cecal apex, axial images 86-94 and coronal images 46-68. Prominent adjacent inflammation but no extraluminal air or abscess. Mild reactive inflammatory changes of a loop of sigmoid colon adjacent to the inflamed appendix. Remainder of the bowel unremarkable. No obstruction. Urinary bladder: No stones or wall thickening. Reproductive:Normal size prostate. Vascular: No abdominal aortic aneurysm. Patent portal and mesenteric veins. Retroperitoneal and peritoneal spaces: Trace fluid in the pelvis. No free air or extraluminal air. No abscess. No lymphadenopathy. Osseous: No acute osseous abnormality. Posterior fusion and laminectomy L5-S1. Lateral L5 spondylolysis. Mild left scoliosis lumbar spine. Abdominal and pelvic wall: No concerning findings. Small left inguinal hernia contains fat but no bowel. Any findings described in the findings sections and not included in the impression are incidental and do not require imaging follow-up. CT/Abdomen/Pelvis W IV Cont ONLY IMPRESSION: Acute appendicitis with a 1.5 cm appendicolith in the appendiceal orifice. Prominent adjacent inflammation but no definite evidence of rupture. Electronically Signed: Rusty Puente MD at 5:32 EDT Reading Location ID and State: [address] [place] [address] Tel , Service support , CC: HARINI Weaver; Dr. Garret Mark MD Press Cleaner: Signed Lyric Weaver CNP Work Phone: Start: 01-22-2022 Radiologic examination tibia & fibula 2 views Bao Peralta MD Work Phone: Start: 12-18-2021 Radiologic examination tibia & fibula 2 views Bao Peralta MD Work Phone: Start: 12-07-2021 Antibody screen DELFINA BOYD Comment on above: Order Comment: Specimen Type: BLOOD SPEC IMEN Ordering Facility: [facility] Address: [address] [place] [address] Performed By: #### T SCR #### [facility] CLIA [id number] [address] [id number] [facility] Start: 12-06-2021 Plain chest X-ray Start: 12-06-2021 Radiography of ankle Start: 12-06-2021 CT cervical spine without contrast Start: 12-06-2021 CT of head without contrast Start: 07-27-2018 End: 07-27-2018 Cardiology Visit Report Comments: See Note; NOTES: [facility] [address] [place], [place] [id number] OFFICE VISIT Date of Service: 07/27/18 MR#: [id number] Acct: [id number] Name: LASHA SMITH Rep #: [id number] : 1960 Provider: Rob Abreu MD Age/Sex: 57/M Location: [facility] Status: Signed HPI HPI Chief Complaint: Routine f/u Details: Details: Mr. Smith is a very pleasant 57 -year-old nondiabetic gentleman a history of hypertension, tobacco abuse, positive family history of acute myocardial infarction his father who is not a smoker, YE compliant with CPAP, and history of TIA in the past. The patient was previously admitted to the emergency room for recurrent substernal chest pressure, negative troponins, and normal stress test. Given his risk factors he underwent a left her catheterization by myself on 03/09/14 which demonstrated nonobstructive coronary disease in the RCA region, and an EF of 60%. No intervention was recommended. He was initially placed on Pravachol but he discontinued this himself due to myalgias. this was subsequently switched to gemfibrozil and Zetia which he is tolerating fairly well. His Zetia was discontinued out of concern for his fatty liver and he is only on gemfibrozil. He has been compliant with his medications as well as his CPAP. Patient smokes about 4 cigarettes a day. Patient was recently admitted in April 2015 with what sounds like weakness on the left side of his body, it was felt to be secondary to hypotension. Nonetheless he had a cardiac workup which was essentially negative. A CTA was n His medications were adjusted and he was sent home. Since her last visit, the patient has completed his divorce, and is doing relatively well. He denies any chest pain, angina, shortness of breath or dyspnea on exertion. His previous stress test was in 2013 which was a exercise MPI which was negative for ischemia but failed to reach target heart rate. His most recent stress test was 10/08/17 which was a walking stress echocardiogram which was negative for inducible ischemia. In our office today's blood pressure is 132/78 and pulse is 84 and regular. His physical exam is as below. his lipids as of 07/16/15 showed HDL of 31 and an LDL of 136. Lipids dated 05/07/15 show an LDL of 121 and HDL of 30. Repeat lipids are pending. Intake Vital Signs07/27/18 Height 5 ft 8.5 in 07/27/18 Weight: 232 lb 07/27/18 Body Mass Index (BMI) 34.7 07/27/18 Blood Pressure 130/78 H 07/27/18 Respiratory Rate 18 07/27/18 Pulse Rate 86 Intake Visit Reasons: 6 M FU Allergies Sulfa (Sulfonamide Antibiotics) Allergy (Severe, Verified 07/27/18 09:50) Hives, Sweating, SOB pravastatin [From Pravachol] Adverse Reaction (Intermediate, Verified 07/27/18 09:50) Myalgias Medications Metformin [Metformin HCl] 500 mg PO DAILY 10/21/15 [History Confirmed 07/27/18] gemfibrozil 600 mg tablet 600 mg PO BID #60 tab 06/18/17 [Rx Confirmed 07/27/18] amitriptyline 50 mg tablet 50 mg PO QHS tab 09/09/17 [History Confirmed 07/27/18] omeprazole 40 mg capsule,delayed release 40 mg PO BID cap 09/09/17 [History Confirmed 04/16/18] escitalopram 20 mg tablet 20 mg PO QHS 10/17/17 [History Confirmed 07/27/18] aspirin 81 mg tablet,delayed release 81 mg PO DAILY 04/16/18 [History Confirmed 07/27/18] cholecalciferol (vitamin D3) 4,000 unit capsule 4,000 unit PO DAILY 07/27/18 [History Confirmed 07/27/18] losartan 50 mg tablet 50 mg PO QDAY #90 tab 07/27/18 [Rx Confirmed 07/27/18] metoprolol succinate ER 25 mg tablet,extended release 24 hr 25 mg PO DAILY #90 tab 07/27/18 [Rx Confirmed 07/27/18] PFSH Medical History Atherosclerotic heart disease of [place] coronary artery without angina pectoris (Chronic) YE (obstructive sleep apnea) (Chronic) GERD (gastroesophageal reflux disease) (Chronic) Tobacco use disorder (Chronic) HTN (hypertension) (Chronic) Hyperlipidemia (Chronic) Diabetes (Acute) Fatigue (Acute) Hemorrhoids (Acute) Knee pain (Acute) SOB (shortness of breath) (Acute) TIA (transient ischemic attack) (Acute) Hx of benign neoplasm of brain (Chronic) Surgical History History of arthroscopy of right knee (Chronic) History of left knee surgery (Chronic) History of brain surgery (Resolved) History of lumbar surgery (Resolved) history of benign tumor of parotid gland (Resolved) Family History Father CAD (coronary artery disease) Social History Smoking Status: Current some day smoker alcohol intake: never substance use type: does not use ROS Const Const: Negative for fatigue, weakness, headache(s), frequent falls, difficulty sleeping or excessive sweating Eyes Eyes: Negative for loss of peripheral vision, transient loss of vision, blurry vision, double vision or tunnel vision ENT ENT: Negative for headache(s), dizziness, Nosebleed/epistaxis or balance problems Cardio Chest Pain: No Palpitations: No Edema: None Muscle aches with walking: None Resp Respiratory: Positive for SOB with activity; negative for SOB at rest, SOB orthopnea\\SOB lying down, Cough or paroxysmal nocturnal dyspnea GI GI: Negative nausea, vomiting, heartburn or black,tarry stools : Negative for hematuria Musc Musc: Negative for muscle aches/ myalgia, muscle weakness, joint pain or balance problems Skin Skin: Negative non-healing lesions, rash or unusual bruising Neuro Neuro: Negative for dizziness, lightheadedness, near syncope, syncope, orthostatic symptoms, frequent falls, headache(s), weakness, blurry vision, double vision or lack of coordination Gene Hematologic/Lymphatic: Negative for easy bleeding or easy bruising Endo Endo: Negative for fatigue, excessive sweating or increased thirst/drinking Psych Psych: Negative for anxiety or depression Allergy Allergy/Immunology: Negative for hives, Negative for rash Cardiology Exam Const Appearance: cooperative, healthy appearing and no acute distress Nutritional Appearance: well nourished Orientation: alert, oriented x3 and oriented to person Head Head: normal to inspection, normocephalic and atraumatic Nose: external nose normal Face and Sinus: face symmetric Mouth: oral mucosae normal Eyes General: appearance normal, both eyes and all related structures Eyelids: eyelids normal Conjunctivae: conjunctivae normal Pupils: PERRL and normal by confrontation EOM: EOM intact bilaterally Neck Neck: normal visual inspection and full ROM Carotids: normal carotid upstroke Chest Chest inspection: normal inspection of the chest Auscultation: Bilateral: Clear to Auscultation Cardio Palpation: normal PMI Rate: regular rate Rhythm: regular rhythm Heart sounds: S1 normal and S2 normal GI GI: normal to inspection, no hepatosplenomegaly and bowel sounds present Neuro General: alert, awake, oriented x3, CN's II-XI intact bilaterally and moves all extremities Skin Skin: no rashes or lesions noted Extremities Pulses: Normal: Right Femoral Pulse, Left Femoral Pulse, Right Dorsalis Pedis Pulse, Left Dorsalis Pedis Pulse, Right Posterior Tibial Pulse, Left Posterior Tibial Pulse, Right Radial Pulse, Left Radial Pulse Lower Extremity Edema: None: Bilateral Psych Psychological: normal affect Assessment AND Plan 1. Atherosclerotic heart disease of [place] coronary artery without angina pectoris I25.10 Plan 1. Coronary artery disease: The patient had nonobstructive coronary disease by catheterization on 03/08/14. He has had no anginal symptoms and no change in his exercise capacity. His heart rate and blood pressure well controlled. Recommend he continue baby aspirin for primary prevention, losartan, and metoprolol. We will repeat his stress test in October 2019 or sooner if the patient develops symptoms. 2. Hyperlipidemia E78.5 Plan 2. Hyperlipidemia: The patient is unable to take statins or Zetia due to his fatty liver disease. He is tolerating gemfibrozil well. Based on his nonobstructive coronary disease and diabetes he requires as aggressive LDL reduction as possible. Repeat lipid is pending. Continue gemfibrozil. 3. Tobacco use disorder F17.200 Plan 3. Tobacco disorder: Patient smokes about 4 cigarettes/day on average, and is trying his best to quit. I encouraged him to continue to reduce his tobacco intake. Patient is voiced understanding and agrees to quit. 4. Return office in 6 months. This note was generated using a voice recognition system and there may be incorrect words, spelling or punctuation that were not noted when reviewing the office note prior to saving. Plan Detail Other Medications Refilled: Follow Up +6M (Jay) Coding Level of Care Code Off vis,est,level 3 Diagnoses Atherosclerotic heart disease of [place] coronary artery without angina pectoris I25.10 Hyperlipidemia E78.5 Tobacco use disorder F17.200 Coding Level of Care Code Off vis,est,level 3 Diagnoses Atherosclerotic heart disease of [place] coronary artery without angina pectoris I25.10 Hyperlipidemia E78.5 Tobacco use disorder F17.200 Supplemental Info Supplemental Information Labs LDL Cholesterol 121 mg/dL (0-130) 05/07/15 HDL Cholesterol 30 mg/dL (40-) L 05/07/15 Triglycerides 212 mg/dL (-199) H 05/07/15 VLDL Cholesterol 42 mg/dL (5-40) H 05/07/15 Diagnostics Electrocardiogram 05/06/15 Echocardiogram 05/06/15 Stress Echocardiogram 10/08/17 Stress Test Nuclear Medicine 02/18/14 Chest X-Ray 05/06/15 07/27/18 1010 <Electronically signed by Rob Abreu MD> Date [facility]breu MD [facility] Signature: Date (if applicable) CC: Breanna Castañeda EXCEL DEVELOPER Breanna Castañeda Start: 10-17-2017 End: 10-17-2017 Urgent Care Visit Report Comments: See Note; NOTES: [facility] [address] [place] [address] OFFICE VISIT Date of Service: 10/17/17 MR#: [id number] Acct: [id number] Name: LASHA SMITH Rep #: [id number] : 1960 Provider: Neto Doyle NP Age/Sex: 56/M Location: [facility] Status: Signed Intake Vital Signs10/17/17 Height 5 ft 8.5 in Intake Visit Reasons: EAR PRESSURE/COUGH Chief Complaint: sinus pressure Is patient in pain?: No Allergies Sulfa (Sulfonamide Antibiotics) Allergy (Verified 10/17/17 10:20) Rash pravastatin [From Pravachol] Adverse Reaction (Intermediate, Verified 10/17/17 10:20) Myalgias Medications Metformin [Metformin HCl] 500 mg PO DAILY 10/21/15 [History Confirmed 10/17/17] gemfibrozil 600 mg tablet 600 mg PO BID #60 tab 06/18/17 [Rx Confirmed 10/17/17] metoprolol succinate ER 25 mg tablet,extended release 24 hr 25 mg PO DAILY #30 tab 06/18/17 [Rx Confirmed 10/17/17] losartan 50 mg tablet 50 mg PO QDAY #30 tab 06/23/17 [Rx Confirmed 10/17/17] amitriptyline 50 mg tablet 50 mg PO QHS tab 09/09/17 [History Confirmed 10/17/17] omeprazole 40 mg capsule,delayed release 40 mg PO BID cap 09/09/17 [History Confirmed 10/17/17] azithromycin 250 mg tablet See Label Instructions PO .COMPLEX #6 tab 10/17/17 [Rx Confirmed 10/17/17] escitalopram 20 mg tablet 20 mg PO QHS 10/17/17 [History Confirmed 10/17/17] PFSH Medical History Atherosclerotic heart disease of [place] coronary artery without angina pectoris (Chronic) YE (obstructive sleep apnea) (Chronic) GERD (gastroesophageal reflux disease) (Chronic) Tobacco use disorder (Chronic) HTN (hypertension) (Chronic) Hyperlipidemia (Chronic) Diabetes (Acute) Fatigue (Acute) Hemorrhoids (Acute) Knee pain (Acute) SOB (shortness of breath) (Acute) TIA (transient ischemic attack) (Acute) History of left knee surgery (Chronic) Hx of benign neoplasm of brain (Chronic) Surgical History History of arthroscopy of right knee (Chronic) History of brain surgery (Resolved) History of lumbar surgery (Resolved) history of benign tumor of parotid gland (Resolved) Family History Father CAD (coronary artery disease) Social History Smoking Status: Current some day smoker alcohol intake: never substance use type: does not use HPI HPI Chief Complaint: sinus pressure Details: LASHA SMITH, is a 56 M who presents to the office today for an acute visit of productive cough of white sputum, sinus pressure, ear pressure, increasing shortness of breath and fatigue 4 days that has progressively worsening. He has a past medical history as listed above. The patient states that his upper upper respiratory symptoms have been now going on for 4 days and are progressively getting worse. He has not tried any other [id number] treatments at this time. He does state that he has been exposed to sick contacts at home. He has a 42 year smoking hx. He denies any other aggravating or relieving symptoms. He denies any history of COPD, however he does state that he often requires antibiotics when he gets symptoms similar to this and that he has taken Z-Paks in the past. He otherwise denies any fever, chills, nausea, vomiting, chest pain or pressure, syncope or presyncopal episodes. ROS Const Constitutional: No fever(s), chills, weakness, change in appetite, sleep problems, fatigue, malaise or frequent falls ENT ENT: Positive for ear pressure and sore throat; no abnormal hearing, ear discharge or dental pain Resp Respiratory: Positive for cough Cough: Yes productive and shortness of breath sob: SOB with activity; no wheezing Cardio Cardiology: No chest pain at rest, chest pain with exertion, shortness of breath, dyspnea on exertion, lightheadedness, irregular heart rhythm, fast heart rate, palpitations, orthopnea or generalized swelling Gastro GI: No abdominal pain, change in bowel habits, constipation, diarrhea, vomiting or nausea/dyspepsia Musc Musculoskeletal: No tingling or numbness Skin Skin: No itching Neuro Neurology: No weakness, frequent falls, abnormal hearing, tingling, unsteady gait/balance, dizziness, loss of vision, numbness or memory loss Psych Psychiatric: No change in appetite, No memory loss, No anxiety, No depression, No Thoughts of harming yourself/Others Endo Endocrine: No fatigue Aller/Imm Allergy/Immunologic: No wheezing, itchy eyes or seasonal allergy symptoms Exam Const General: cooperative, comfortable, no acute distress Nutritional Appearance: average body habitus, well nourished Orientation: alert, oriented x3 Limitations: mental status not altered HENMT Head: normal to inspection Ears: hearing grossly normal bilaterally, TM abnormal with fluid behind the TM bilaterally Nose: external nose normal, mucous membranes and turbinates abnormal (Edematous) Face and sinus: normal facial exam Mouth: oral mucosae normal Throat: posterior oropharynx normal Neck Neck: lymphadenopathy Resp Effort AND Inspection: normal respiratory effort, able to speak in complete sentences, normal respiratory pattern, symmetric chest movement, no audible wheezes, no cough Auscultation: Bilateral: Clear to Auscultation Cardio Palpation: normal PMI Rate: regular rate Heart Sounds: S1 normal, S2 normal, normal S1 and S2, no click, no gallops, no murmurs, no rubs Neuro General: alert, awake, oriented x3, CN's II-XI intact bilaterally Speech: speech normal Gait: normal gait Motor: muscle tone normal throughout Extrem General: normal to inspection, normal gait, no edema, no pedal edema Psych Appearance: grossly normal Mental Status: mental status grossly normal Affect: normal affect Attitude: cooperative Thought Process: normal Assessment AND Plan Problems 1. URI (upper respiratory infection) J06.9 Plan Discussed with patient that his upper respiratory symptoms are mostly viral in nature and discussed supportive measures to take including the use of Mucinex for his cough and Flonase for his sinus symptoms and increasing rest and fluid. However given his multiple comorbidities and his extensive smoking history, will cover with an antibiotic of azithromycin which she has had in the past and tolerated well to prevent any secondary bacterial infections. Discussed red flag symptoms that require urgent medical attention. Instructed patient to follow-up with his PCP to recheck his symptoms next week. Patient verbalized understanding. Kiley disclaimer Medications New: Plan Detail Follow Up With PCP Coding Level of Care Code Off vis,est,level 3 Diagnoses URI (upper respiratory infection) J06.9 10/17/17 1105 <Electronically signed by Neto VILLANUEVAC> Date Neto Doyle NP-C Lyla[place] Signature: Date (if applicable) CC: Breanna Castañeda Start: 10-08-2017 End: 10-08-2017 Stress Test Echo w/o Contrast Comments: See Note; NOTES: [facility] [address] [place] [address] Stress Test Echo W/Contrast MR#: [id number] Acct: [id number] Name: LASHA SMITH Rep #: [id number] : 1960 56 From: Rob Abreu MD Primary Care: Garry Breanna BRODY Status: REG CLI Ordering Dr: Rob Abreu MD Sex: M C Reason For Study: DYSPNEA Stress Results Protocol: Narciso Protocol Maximum Predicted HR: 162 bpm Target HR: 138 bpm% Max imum Predicted HR: 78 % DurationHeart Rate Stage (mm:ss) (bpm) BPCom ment BASELINE 71 140/90 2 CC DEFINITY STAGE 1 3:00 10 1 132/86 STAGE 2 3:00 11 6 144/92 STAGE 3 1:17 12 6 / 2CC DEFINITY RECOVERY 86 132/84 2 CC DEFINITY Stress Duration: 7:17 mm:ss Maximum Stress HR: 126 bpm Baseline Echocardiogram Findings The estimated ejection fraction is 60 %. Stress Echo Wall motion Data Resting WMIntermediate WMStress WM Resting Wall Motion Wall Motion Stress No regional wall motion No regional wall motion abnormalities noted. abnormalities noted. EKG Data Normal intervals are noted. The patient exercised according to the regular Narciso protocol for a total duration of 7:17. The maximum heart rate attained was 127 beats per minute. This was 78% of maximum predicted heart rate. The patient exercised into stage 3 of the Narciso protocol. During stress, there were no ST or T wave changes noted to suggest ischemia. No clinical angina was noted. Interpretation Summary The study was technically difficult. Contrast injection was performed. The estimated ejection fraction is 60 %. Normal adequate treadmill echocardiogram. Negative for ischemia by EKG and echocardiographic criteria. No anginal symptoms noted. Rare PVC noted during exercise. Average exercise capacity for age. Appropriate blood pressure response to exercise. Test terminated due to fatigue and dyspnea. Final LVEF of 70%. Decreased sensitivity due to poor echo windows requiring Definity enhancement agent. No complications. Ordering Physician: Rob Abreu Referring Physician: Rob Abreu Performed By: Nini Andrade RDCS 10/08/17 1729 Date Rob Abreu MD CC: Breanna Castañeda NP; Rob Abreu MD Date Dictated: 10/08/17 1304 Date Transcribed: 10/08/171728 Press Cleaner: Signed Breanna Castañeda Start: 09-14-2017 End: 09-14-2017 Liver Comments: See Note; NOTES: [facility] Imaging Services [address] [place] [id number] Liver MR#: [id number] Acct: [id number] Name: LASHA SMITH Rep #: [id number] : 1960 56 From: Jm Ware MD PCP: Breanna Castañeda NP Status: REG CLI Study: Liver Date of Exam: 09/14/17 Exam# [id number] Ordering Dr: Breanna Castañeda STUDY: ABDOMINAL ULTRASOUND - RIGHT UPPER QUADRANT REASON FOR VISIT: Male, 56 years old. Elevated liver enzymes. TECHNIQUE: Ultrasound evaluation of the right upper quadrant was performed with real-time and static gomez-scale imaging. TECHNICAL QUALITY: Adequate. COMPARISON: Comparison is made with prior examination dated December 06, 2013. FINDINGS: Liver: The liver is slightly enlarged and measures 18.3 cm. There is increased echogenicity consistent with fatty infiltration. The bile ducts are within normal limits. There is hepatic color flow. The direction of portal flow is hepatopetal. There is no demonstrated mass lesion. Gallbladder: Normal distended gallbladder. The gallbladder wall measures 2.8 mm. There is a negative sonographic Becerra's sign. There is no pericholecystic fluid. There are no gallstones. Common Bile Duct (C.B.D.): The common bile duct measures 4.0 mm. Pancreas: Normal size of the head, body and tail of the pancreas. There is increased echogenicity of the pancreas. There is no demonstrated pancreatic mass or cyst. Right Kidney: Normal size of the right kidney. The right kidney measures 12.1 cm x 5.4 cm x 6.0 cm. Normal renal cortex. The right cortex measures 1.8 cm. There is no demonstrated renal mass or cyst. There is no right hydronephrosis. 4 mm calculus in the midportion of the kidney. US/Liver IMPRESSION: Mild degree of hepatomegaly with fatty infiltration of the liver. Electronically Signed: Jm Ware MD at 15:05 EDT Tel [phone], Service support , CC: Breanna Castañeda NP Press Cleaner: Signed Breanna Castañeda Work Phone: Start: 09-11-2017 End: 09-11-2017 Cardiology Visit Report Comments: See Note; NOTES: [facility] [address] [place] [address] OFFICE VISIT Date of Service: 09/11/17 MR#: [id number] Acct: [id number] Name: LASHA SMITH Rep #: [id number] : 1960 Provider: Rob Abreu MD Age/Sex: 56/M [place] [facility] [place]: Signed HPI HPI Chief Complaint: Routine f/u Details: Mr. Smith is a very pleasant 56 -year-old nondiabetic gentleman a history of hypertension, tobacco abuse, positive family history of acute myocardial infarction his father who is not a smoker, YE compliant with CPAP, and history of TIA in the past. The patient was Previously admitted to the emergency room for recurrent substernal chest pressure, negative troponins, and normal stress test. Given his risk factors he underwent a left her catheterization by myself on 03/09/14 which demonstrated nonobstructive coronary disease in the RCA region, and an EF of 60%. No intervention was recommended. He was initially placed on Pravachol but he discontinued this himself due to myalgias. this was subsequently switched to gemfibrozil and Zetia which he is tolerating fairly well. He has been compliant with his medications as well as his CPAP. Patient was recently admitted in April 2015 with what sounds like weakness on the left side of his body, it was felt to be secondary to hypotension. Nonetheless he had a cardiac workup which was essentially negative. A CTA was n His medications were adjusted and he was sent home. Patient has completed his divorce, was doing relatively well up until around 2 weeks ago when he developed an upper respiratory tract infection with subsequent dyspnea on exertion and shortness of breath which appears to have worsened over the last couple of days. Prior to that the patient had some shortness of breath but not as bad. He denies any anginal symptoms. His last stress test was in 2013 which was a exercise MPI which was negative for ischemia but failed to reach target heart rate. In our office today's blood pressure is 130/72 and pulse is 72 and regular. His physical exam is as below. his lipids as of 07/16/15 showed HDL of 31 and an LDL of 136. Lipids dated 05/07/15 show an LDL of 121 and HDL of 30. No repeat lipids noted. Intake Vital Signs09/11/17 Height 5 ft 8.5 in Intake Visit Reasons: F/U Allergies Sulfa (Sulfonamide Antibiotics) Allergy (Verified 09/11/17 13:40) Rash pravastatin [From Pravachol] Adverse Reaction (Intermediate, Verified 09/11/17 13:40) Myalgias Medications Escitalopram Oxalate [Lexapro] 20 mg PO QHS 02/17/14 [History Confirmed 09/11/17] Aspirin [Aspirin, Baby] 81 mg PO DAILY@0800 05/06/15 [History Confirmed 09/11/17] Garlic 1,000 mg PO BID 05/06/15 [History Confirmed 09/11/17] Metformin [Metformin HCl] 500 mg PO DAILY 10/21/15 [History Confirmed 09/11/17] gemfibrozil 600 mg tablet 600 mg PO BID #60 tab 06/18/17 [Rx Confirmed 09/11/17] metoprolol succinate ER 25 mg tablet,extended release 24 hr 25 mg PO DAILY #30 tab 06/18/17 [Rx Confirmed 09/11/17] losartan 50 mg tablet 50 mg PO QDAY #30 tab 06/23/17 [Rx Confirmed 09/11/17] amitriptyline 50 mg tablet 50 mg PO QHS tab 09/09/17 [History Confirmed 09/11/17] doxycycline hyclate 100 mg capsule 100 mg PO BID cap 09/09/17 [History Confirmed 09/09/17] omeprazole 40 mg capsule,delayed release 40 mg PO BID cap 09/09/17 [History Confirmed 09/11/17] [facility] Medical History Atherosclerotic heart disease of [place] coronary artery without angina pectoris (Chronic) YE (obstructive sleep apnea) (Chronic) GERD (gastroesophageal reflux disease) (Chronic) Tobacco use disorder (Chronic) HTN (hypertension) (Chronic) Hyperlipidemia (Chronic) TIA (transient ischemic attack) (Acute) History of left knee surgery (Chronic) Hx of benign neoplasm of brain (Chronic) Surgical History History of arthroscopy of right knee (Chronic) History of brain surgery (Resolved) History of lumbar surgery (Resolved) history of benign tumor of parotid gland (Resolved) Family History Father CAD (coronary artery disease) Social History Smoking Status: Current some day smoker alcohol intake: never substance use type: does not use ROS Const Const: Positive for other (Is being treated for sinus infection); negative for fatigue, weakness, difficulty sleeping, frequent falls, headache(s) or excessive sweating Eyes Eyes: Negative for loss of peripheral vision, transient loss of vision, blurry vision or double vision ENT ENT: Negative for dizziness, Nosebleed/epistaxis, balance problems or headache(s) Cardio Chest Pain: No Edema: None Muscle aches with walking: None Resp Respiratory: Positive for SOB with activity (SOB when climbing stairs); negative for SOB at rest, SOB orthopnea\\SOB lying down or paroxysmal nocturnal dyspnea GI GI: Negative nausea or heartburn : Negative for hematuria Musc Musc: Negative for muscle aches/ myalgia, muscle weakness, joint pain or balance problems Skin Skin: Negative non-healing lesions, unusual bruising or rash Neuro Neuro: Negative for blurry vision, dizziness, lightheadedness, orthostatic symptoms, double vision, weakness, frequent falls or headache(s) Gene Hematologic/Lymphatic: Negative for easy bruising Endo Endo: Negative for increased thirst/drinking, fatigue or excessive sweating Psych Psych: Negative for anxiety or depression Allergy Allergy/Immunology: Negative for hives, Negative for rash Cardiology Exam Const Appearance: cooperative, healthy appearing and no acute distress Nutritional Appearance: well nourished Orientation: alert, oriented x3 and oriented to person Head Head: normal to inspection, atraumatic and normocephalic Nose: external nose normal Face and Sinus: face symmetric Mouth: oral mucosae normal Eyes General: appearance normal, both eyes and all related structures Eyelids: eyelids normal Conjunctivae: conjunctivae normal Pupils: PERRL and normal by confrontation EOM: EOM intact bilaterally Neck Neck: normal visual inspection and full ROM Carotids: normal carotid upstroke Chest Chest inspection: normal inspection of the chest Auscultation: Bilateral: Clear to Auscultation Cardio Palpation: normal PMI Rate: regular rate Rhythm: regular rhythm Heart sounds: S1 normal and S2 normal GI GI: normal to inspection, no hepatosplenomegaly and bowel sounds present Neuro General: alert, oriented x3, awake, CN's II-XI intact bilaterally and moves all extremities Skin Skin: no rashes or lesions noted Extremities Pulses: Normal: Right Femoral Pulse, Left Femoral Pulse, Right Dorsalis Pedis Pulse, Left Dorsalis Pedis Pulse, Right Posterior Tibial Pulse, Left Posterior Tibial Pulse, Right Radial Pulse, Left Radial Pulse Lower Extremity Edema: None: Bilateral Psych Psychological: normal affect Assessment AND Plan 1. Atherosclerotic heart disease of [place] coronary artery without angina pectoris I25.10 Plan 1. Coronary artery disease: Given the patient's known coronary disease, progressively worsening dyspnea on exertion which may be an anginal equivalent, and hyperlipidemia, I recommend that he undergo a redo triple stress test in the form of a treadmill echocardiogram. If this is grossly abnormal for ischemia, and have a low threshold for repeat catheterization. In the meantime he will continue baby aspirin, losartan and Toprol. Orders Orders: 2. Hyperlipidemia E78.5 Plan 2. Hyperlipidemia: Patient has not had a repeat cholesterol profile in some time. Is currently on gemfibrozil as he is unable to tolerate statins. Repeat lipid profile. Patient was unable to continue Zetia due to cost issues. 3. Return office in 6 months This note was generated using a voice recognition system and there may be incorrect words, spelling or punctuation that were not noted when reviewing the office note prior to saving. Orders Orders: Plan Detail Other Orders Orders: Other Medications Discontinued: oxycodone-acetaminophen 5-325 mg Di1 - 2 tabs PO Q6H PRN PRN Moderate-Se Pippa Bravo scontinued Reason: Order Changed paulette Pain (-03/17) Follow Up +6m (Jay) Coding Level of Care Code Off vis,est,level 3 Diagnoses Atherosclerotic heart disease of [place] coronary artery without angina pectoris I25.10 Hyperlipidemia E78.5 Coding Level of Care Code Off vis,est,level 3 Diagnoses Atherosclerotic heart disease of [place] coronary artery without angina pectoris I25.10 Hyperlipidemia E78.5 09/11/17 1404 <Electronically signed by Rob Abreu MD> Date Rob Abreu MD [facility] Signature: Date (if applicable) CC: Breanna Parikhja Start: 12-26-2016 End: 12-26-2016 Dietary management education, guidance, and counseling Timothy BLACK Start: 05-12-2016 End: 11-04-2016 MUMTAZ Abreu MD Work Phone: Start: 05-12-2016 End: 11-04-2016 Follow Up Appt 6 months Rob Abreu MD Work Phone: Start: 11-15-2015 End: 11-15-2015 Operative Report Comments: See Note; NOTES: [facility] Medical Records Department [address] [place] [address] Operative Report MR#: [id number] Acct: [id number] Name: LASHA SMITH Rep #: [id number] : 1960 54 From: Jossue Douglas MD PCP: Delfina Boyd MD Status: [facility] DATE OF SERVICE: 11/14/2015 DATE OF PROCEDURE: November 14, 2015. PREOPERATIVE DIAGNOSIS: Umbilical incisional hernia. POSTOPERATIVE DIAGNOSIS: Umbilical incisional hernia. PROCEDURES: Repair of umbilical incisional hernia using laparoscopic incisional hernia repair, Ventralex ST mesh, large size, reference #[id number], lot #[id number], expires August 05, 2017, secured with sutures and SecureStrap reference #[id number], lot #[id number], expires in April 2017. SURGEON: Jossue Douglas M.D. WHEEL WORKER: Mark Wesley. ANESTHESIA: General endotracheal. ANESTHESIOLOGIST: Ravin. ASA: 3. IV FLUIDS: 800 mL. ESTIMATED BLOOD LOSS: 10 mL. URINE OUTPUT: No catheter. FINDINGS: As described above. DRAINS: None. COMPLICATIONS: None. DISPOSITION: The patient taken to PACU in stable condition. DESCRIPTION OF PROCEDURE: The patient was marked in the holding area. The patient concurred this was the planned operative site. He was brought back to the operative suite. Sign-in was performed verifying patient, site, procedure, position, critical nursing, VT and antibiotic prophylaxis. The patient received 3 g of Ancef, had sequential compression devices placed. Following induction of general anesthetic, the patient was prepped and draped in usual fashion. Time-out was performed verifying patient, site, procedure, position. Local anesthetic injected at the site of his previous infraumbilical incision. Incision made, dissection carried down and the umbilical root dissected off the umbilical fascia. The hernia defect was then entered with a 5 mm Visiport with insufflation was undertaken. The laparoscope was inserted through 5 ports. 5 ports were placed in the left paramedian and 2 in the right paramedian with the umbilical port upsized to a 10 mm Juancarlos trocar. There were no adhesions and the small fascial defect just to the right of the umbilicus. A large Ventralex mesh was then placed through the defect. Pneumoperitoneum was reestablished. A SecureStrap Tacker was used to tack the mesh circumferentially. Following this, interrupted 0 Prolene sutures superior, inferior and laterally were placed transfixing through the fascia. Additional secure tacks were used to secure the fascia at the outer ring, the inner defect and then at the lateral aspect of the mesh. The tails were cut to size and affixed to the anterior fascia with a 0 Prolene suture. The 5 ports were removed under direct visualization with no signs of bleeding. Pneumoperitoneum was released. The umbilical root was tacked down with 3-0 Vicryl sutures. Skin was closed with 4-0 Monocryl interrupted sutures. Steri-Strips applied. The patient tolerated the procedure well and was taken to recovery in stable condition. Jossue Douglas MD T: NTS JOB: [id number] 11/15/15 1735 <Electronically signed by Jossue Douglas MD> Date Jossue Douglas MD Cosigner Signature (If Indicated): Date CC: Delfina Boyd MD; Jossue Douglas MD Date Dictated: 11/14/15819 Date Transcribed: 11/14/15819 Press Cleaner: Signed Breanna Garry Start: 11-14-2015 End: 11-14-2015 Discharge Instruction Comments: See Note; NOTES: [facility] Medical Records Department [address] [place] [address] Instructions for Home/Discharge Instructions 11/14/15811 MR#: [id number] Acct: [id number] Name: LASHA SMITH Rep #: [id number] : 1960 54 From: Jossue Douglas MD PCP: Delfina Boyd MD Status: [place] [facility] [place] Dis[place] Diet: Light diet - advance as tolerated Discharge Activity: Return to Normal Activity, May Drive - when you are no longer taking narcotic pain medications., May Shower - with the bandage in place 1-2 days after surgery. Lifting Restrictions: 20 pounds for 8 weeks. Additional Activity Instructions:: Climbing stairs is fine, walking is encouraged. Sitting in bed may be uncomfortable. Sitting up using your lateral muscles (sitting up sideways) is usually more comfortable. Do not drive, work heavy equipment of sign legal documents for 24 hours. If your hernia repair was an ingunial repair, you may have scrotal swelling, an ice pack and/or athletic support can provide more comfort. Pain medications may cause nausea, you should typically eat light foods as you take your pain medications. Pain medications may also cause constipation. If you have difficulty with this, discuss with your doctor. Call your doctor if your incision/area has: Continuous Slow Oozing, Sudden Increased Bleeding, Increased Pain/ Swelling, Increased Redness, Foul Smelling Discharge Call your doctor if you observe: Fever of 101 or Higher Suture Line Care: Avoid Pulling/Pushing, Avoid Pinching/Bending Additional Dressing/Incision Instructions:: Leave the operative bandage on for 2-3 days. When you remove the bandage, leave the steri-strips on place until your follow up appointment or they fall off. Allergies/Adverse Reactions: Allergies Sulfa (Sulfonamide Antibiotics) Allergy (Verified 11/08/15 10:57) Rash Medications to take at Discharge Amitriptyline HCl 50 mg PO QHS 02/17/14 Escitalopram Oxalate [Lexapro] 20 mg PO QHS 02/17/14 Prilosec 40 mg PO DAILY 02/17/14 Metoprolol(XL)Succ [Toprol Xl (Beta Gil)] 25 mg PO DAILY #30 tablet 03/09/14 Aspirin [Aspirin, Baby] 81 mg PO DAILY@0800 05/06/15 Garlic 1,000 mg PO BID 05/06/15 Meloxicam [Mobic] 15 mg PO QHS 05/06/15 Ezetimibe [Zetia] 10 mg PO DAILY 10/21/15 Gemfibrozil [Lopid] 600 mg PO BID 10/21/15 Losartan Potassium [Cozaar] 50 mg PO DAILY 10/21/15 Metformin [Metformin HCl] 500 mg PO DAILY 10/21/15 Oxycodone HCl/Acetaminophen [Percocet 5-325] 1 - 2 tablet PO Q6H PRN PRN #30 tablet 11/14/15 Oxycodone HCl/Acetaminophen [Percocet 5/325] 1 - 2 tablet PO Q4H PRN PRN #30 tablet 11/14/15 The following prescriptions were given: Oxycodone HCl/Acetaminophen [Percocet 5/325] 1 - 2 tablet PO Q4H PRN PRN #30 tablet PRN Reason: Pain Please Follow Up With: Jossue Douglas - [phone] When: Plan to have a follow up appointment in 7 days. Call to schedule. 11/14/15813 <Electronically signed by Jossue Douglas MD> Date Jossue Douglas MD CC: Delfina Boyd MD [facility] Start: 10-30-2015 End: 10-30-2015 MUMTAZ Abreu MD Work Phone: Start: 10-30-2015 End: 10-30-2015 Follow Up Appt 6 months Rob Abreu MD Work Phone: Start: 10-21-2015 End: 10-21-2015 Discharge Instruction Comments: See Note; NOTES: [facility] Medical Records Department [address] [place] [address] Discharge Instruction 10/21/15 1642 MR#: [id number] Acct: [id number] Name: LASHA SMITH Ja Rep #: [id number] : 1960 54 From: Johnson Parra MD PCP: Delfina Boyd MD Status: REG ER ED Disposition - Plan for ED Patient: Disposition: Home or Assisted Living Chief Complaint: Abd Pain Instructions: ED Abdominal Pain, Unknown Cause, (Male) Prescriptions: Hydrocodone Bitart/Apap 5-325 [Admire 5MG-325MG] 1 - 2 tablet PO Q4H PRN PRN #20 tablet PRN Reason: Pain Referrals: Jossue Douglas MD [STAFF PHYSICIAN] - As soon as possible Additional Instructions: ABDOMINAL PAIN MOST LIKELY FROM ABDOMINAL WALL HERNIA. CALL AND FOLLOW UP WITH DR. DOUGLAS RETURN TO ER IF WORSE What to do if you have Problems For any increased pain, shortness of breath, bleeding, nausea or vomiting, chest pain, or any unexpected problems, contact your doctor. Call [facility] ([phone]) or report to the closest Emergency Room. Call 911 if necessary. 10/21/15 1709 <Electronically signed by Johnson Parra MD> Date Johnson Parra MD Cosigner Signature (If Indicated): Date CC: Delfina Boyd MD Breanna Castañeda Start: 10-21-2015 End: 10-21-2015 Abdomen/Pelvis WITH Contrast Comments: See Note; NOTES: [facility] [address] [place] [address] Verdana 4d Abdomen/Pelvis WITH Contrast MR#: [id number] Acct: [id number] Name: SMITHLASHA Ja Rep #: [id number] : 1960 54 From: Minesh Hernandez MD PCP: Delfina Boyd MD Status: [facility] ER Study: Abdomen/Pelvis WITH Contrast Date of Exam: 10/21/15 Exam# [id number] Ordering Dr: Johnson Parra MD STUDY: CT ABDOMEN AND PELVIS WITH CONTRAST REASON FOR EXAM: Male, 54 years old. Right-sided pain. RADIATION DOSAGE (If Supplied By Facility): CTDIvol = ( 16.30 ) mGy, DLP = ( 1678.54 ) mGycm TECHNIQUE: Transaxial images were obtained from the dome of the diaphragm to the symphysis pubis with oral contrast. 100CC ml of Isovue 300 contrast was administered. Sagittal and coronal images were reconstructed. Individualized dose optimization techniques were used for this CT. COMPARISON: None. FINDINGS: There are mild chronic interstitial fibrotic changes of the lung bases. The visualized portions of the heart are within normal limits. Normal liver. Normal gallbladder and extrahepatic biliary system. Normal spleen. Normal pancreas. Normal bilateral adrenal glands. Abnormal right kidney showing decreased enhancement, perinephric stranding, and mild hydronephrosis. There is mild hydroureter down to the bladder. There is a 2 mm renal stone at the level of the internal orifice of the right UVJ. No other renal stones. Normal left kidney. Normal visualized stomach. Normal small intestine. Normal colon. The appendix is visualized and appears normal. There is diffuse atherosclerotic calcification of the abdominal aorta, without a demonstrated aneurysm. Normal inferior vena cava. Normal retroperitoneum. Mild to moderate enlargement of the prostate gland. Probable mild diffuse lateral wall thickening. There is a left-sided inguinal hernia containing adipose tissue. There are diffuse degenerative changes of the visualized lumbar spine. Postsurgical changes between L5 and S1. IMPRESSION: Obstruction of the right kidney collecting system and ureter by a 2 mm right UVJ stone. Probable chronic bladder outlet obstruction. Small left inguinal hernia. Electronically Signed: Minesh Hernandez MD at 19:07 EDT , Service support [phone], CC: Delfina Boyd MD; Johnson Parra MD Press Cleaner: Signed Breanna Castañeda Start: 10-21-2015 End: 10-21-2015 Abd Decub and/or Erect(Flip Comments: See Note; NOTES: [facility] [address] [place] [address] Verdana 4d Abd Decub and/or Erect(Litoabl MR#: [id number] Acct: [id number] Name: LASHA SMITH Rep #: [id number] : 1960 M 54 From: Minesh Hernandez MD PCP: Delfina Boyd MD Status: REG ER Study: Abd Decub and/or Erect(Portabl Date of Exam: 10/21/15 Exam# [id number] Ordering Dr: Johnson Parra MD STUDY: X-RAY - ABDOMEN/PELVIS REASON FOR EXAM: Male, 54 years old. Pain. Vomiting. TECHNIQUE: AP supine and upright views of the abdomen and pelvis. COMPARISON: None. FINDINGS: Normal visualized lung bases. There is an unremarkable bowel gas pattern. There is no demonstrated free abdominal air. The visualized liver, spleen and kidneys are grossly normal in size and morphology. Normal soft tissue structures. Postoperative changes at the lumbosacral junction. IMPRESSION: No evidence for acute abnormality or obstruction. Electronically Signed: Minesh Hernandez MD at 16:44 EDT , Service support [phone], RAD/Abd Decub and/or Erect(Portabl IMPRESSION: No evidence for acute abnormality or obstruction. Electronically Signed: Minesh Hernandez MD at 16:44 EDT , Service support [phone], CC: Delfina Boyd MD; Johnson Parra MD Press Cleaner: Signed Breanna Castañeda Start: 10-15-2015 End: 10-15-2015 Ecg routine ecg w/least 12 lds w/i&r [MEASUREMENTS ANALYSIS] Date of Test: 10/15/2015 09:27:12; Heart Rate: 69; NE Interval: 156; QRS: 96; QT Interval: 382; Corrected QT Interval (QTc): 397; P Wave [place]ledge: 15; QRS Wave [place]: 20; T Wave [place]: -1; Blood Pressure: 124/80 [ECG DIAGNOSTIC STATEMENTS] Date of Test: 10/15/2015 09:27:12; Summary: Sinus Rhythm WITHIN NORMAL LIMITS Delfina Boyd Work Phone: Comment on above: see scanned document of test done to see results reviewed today with patient Start: 09-20-2015 End: 10-30-2015 *Hepatic Function Panel Rob Abreu MD Work Phone: Start: 09-20-2015 End: 10-30-2015 Lipid panel [AGGREGATE] Rob Abreu MD Work Phone: Start: 05-06-2015 End: 05-06-2015 Brain/Head without Contrast Comments: See Note; NOTES: [facility] [address] [place] [address] Verdana 4d Brain/Head without Contrast MR#: [id number] Acct: [id number] Name: LASHA SMITH Rep #: [id number] : 1960 M 54 From: Rusty Newton MD PCP: Delfina Boyd MD Status: REG ER Study: Brain/Head without Contrast Date of Exam: 05/06/15 Exam# [id number] Ordering Dr: Tereso Ceron MD STUDY: CT BRAIN WITHOUT CONTRAST REASON FOR EXAM: Male, 54 years old. Left-sided weakness, left eye blurriness. RADIATION DOSAGE (If Supplied By Facility): CTDIvol = ( 58.34 ) mGy, DLP = ( 1042.99 ) mGycm TECHNIQUE: Transaxial CT imaging of the brain was performed without administration of intravenous contrast material. COMPARISON: None. FINDINGS: Normal soft tissue structures. A right temporoparietal craniotomy site is noted. There is mild asymmetry of the lateral ventricles, with the right lateral ventricle slightly larger than left. The third and fourth ventricles are midline. There is encephalomalacia of a large portion of right temporal lobe. Normal white matter tracts of the cerebral hemispheres. Normal basal ganglia and thalami. Normal brainstem. Normal cerebellum. There is no intracranial hemorrhage. There are no findings of an acute ischemic infarction. Normal visualized paranasal sinuses. IMPRESSION: 1. A right temporoparietal craniotomy site is noted. 2. Mild asymmetry of the lateral ventricles, with the right lateral ventricle slightly larger than left. There is no evidence of midline shift. 3. There is encephalomalacia of a large portion of right temporal lobe, consistent with prior surgery and/or infarct. 4. There is no evidence of acute intracerebral or intracranial hemorrhage, new infarct, or mass with midline shift. Electronically Signed: Rusty Newton MD at 20:21 EST , Service support [phone], CC: Delfina Boyd MD; Tereso Ceron MD Press Cleaner: Signed Breanna Castañeda Start: 05-06-2015 End: 05-06-2015 CTA Head W/WO Contrast Comments: See Note; NOTES: [facility] [address] [place] [address] [facility] 4d CTA Head W/WO Contrast MR#: [id number] Acct: [id number] Name: LASHA SMITH Rep #: [id number] : 1960 54 From: Johnson Pierre MD PCP: Delfina Boyd MD Status: REG Study: CTA Head W/WO Contrast Date of Exam: 05/06/15 Exam# [id number] Ordering Dr: Tereso Ceron MD STUDY: CTA OF THE BRAIN REASON FOR EXAM: Male, 54 years old. Left-sided weakness RADIATION DOSAGE (If Supplied By Facility): CTDIvol = ( 41.37 ) mGy, DLP = ( 1266.70 ) mGycm TECHNIQUE: CT angiography was performed with a multi-detector CT scanner. Data acquisition was obtained from the skull base through the vertex following intravenous administration of ml of . MIP images were reconstructed from the axial data set. Post-processing of the angiographic images was performed, with multiplanar reformation and 3D reconstruction. COMPARISON: CT of the brain on May 06, 2015. FINDINGS: Normal bilateral petrous carotid arteries. Mildly calcified right cavernous carotid artery with a normal supraclinoid bifurcation. Normal left cavernous carotid artery with a normal supraclinoid bifurcation. Normal right A1 segments of the anterior cerebral artery. Normal left A1 segments of the anterior cerebral artery. Anterior communicating artery not visualized consistent with normal variant. Normal bilateral A2 segments of the anterior cerebral arteries. Normal right M1 and M2 segments of the middle cerebral arteries, with a normal M1 bifurcation. Normal left M1 and M2 segments of the middle cerebral arteries, with a normal M1 bifurcation. Normal right posterior communicating artery (PCOM). Normal left posterior communicating artery (PCOM). Right vertebral is dominant. There is mild diffuse narrowing of the left vertebral Normal basilar artery with a normal basilar bifurcation. The visualized bilateral superior cerebellar (SCA) arteries are normal. Normal bilateral P1, P2 and visualized P3 segments of the posterior cerebral arteries. There is no demonstrated aneurysm of the [place]. There is no demonstrated abnormality of the visualized brain. IMPRESSION: Mild atherosclerotic changes. Electronically Signed: Johnson Pierre MD at 20:37 EST , Service support [phone], CC: Delfina Boyd MD; Tereso Ceron MD Press Cleaner: Signed Breanna Castañeda Start: 05-06-2015 End: 05-06-2015 CTA Neck W/WO Contrast Comments: See Note; NOTES: [facility] [address] [place] [address] Verda 4d CTA Neck W/WO Contrast MR#: [id number] Acct: [id number] Name: LASHA SMITH Rep #: [id number] : 1960 54 From: Johnson Pierre MD PCP: Delfina Boyd MD Status: [facility] Study: CTA Neck W/WO Contrast Date of Exam: 05/06/15 Exam# [id number] Ordering Dr: Tereso Ceron MD CTA of the cervical carotids Indication: Possible stroke Technique: CTA was performed in the axial projection scanning from the cervicothoracic junction to the base of the skull following contrast administration. Sagittal and coronal reconstructions were obtained at the workstation Findings: The left common carotid is normal in caliber. There is no significant plaque noted within the common carotid. There is minimal calcific plaque in the carotid bulb and minimal soft plaque seen within the origin of the internal carotid. The right common carotid is normal caliber without significant plaque. There is no appreciable plaque seen within the carotid bulb or origin of the internal carotid. The right vertebral is dominant. There is mild diffuse narrowing of the left vertebral The vertebrals are patent without evidence for significant stenosis. Impression minor atherosclerotic disease Electronically Signed: Johnson Pierre MD at 20:39 EST , Service support [phone], CC: Delfina Boyd MD; Tereso Ceron MD Press Cleaner: Signed Breanna Castañeda Start: 04-24-2015 End: 04-24-2015 Rosina Abreu MD Work Phone: Start: 04-24-2015 End: 04-24-2015 Follow Up Appt 1 year Rob Abreu MD Work Phone: Start: 04-24-2015 End: 08-07-2015 Lipid panel [AGGREGATE] Rob Abreu MD Work Phone: Start: 03-26-2015 End: 03-27-2015 Knee 4 or More Views Comments: See Note; NOTES: [facility] [address] [place] [address] Verdana 4d Knee 4 or More Views MR#: [id number] Acct: [id number] Name: LASHA SMITH Rep #: [id number] : 1960 M 54 From: Brandy Szymanski MD PCP: Delfina Boyd MD Status: REG CLI Study: Knee 4 or More Views Date of Exam: 03/26/15 Exam# [id number] Ordering Dr: Delfina Boyd MD STUDY: X-RAY - LEFT KNEE REASON FOR EXAM: Male, 54 years old. left knee pain TECHNIQUE: 5 view(s) of the knee. COMPARISON: None. FINDINGS: Normal visualized distal femur. Normal visualized proximal tibia and fibula. Normal proximal tibiofibular articulation. There is minimal tricompartmental osteoarthritis with medial joint space narrowing and lateral and patellofemoral tiny osteophytes. The soft tissue structures are unremarkable. IMPRESSION: Minimal degenerative arthrosis. Electronically Signed: Brandy Szymanski MD at 11:42 EDT , Service support [phone], RAD/Knee 4 or More Views IMPRESSION: Minimal degenerative arthrosis. Electronically Signed: Brandy Szymanski MD at 11:42 EDT , Service support [phone], CC: Delfina Boyd MD Press Cleaner: Signed Delfina Boyd Work Phone: Start: 11-28-2014 End: 11-28-2014 Emergency Department Summary Comments: See Note; NOTES: [facility] Medical Records Department [address] [place] [address] Emergency Department Summary MR#: [id number] Acct: [id number] Name: LASHA SMITH Rep #: [id number] : 1960 53 From: Rob Alexandra DO PCP: Delfina Boyd MD Status: DEP ER DATE OF SERVICE: 11/20/2014 CHIEF COMPLAINT: Shoulder injury. HISTORY OF PRESENT ILLNESS: A 53-year-old male walked out of his garage today. The floor was wet, he slipped, falling down injuring his left shoulder. He is not sure if he had his arm above him or if it was against his side. He notes pain mostly over the anterior aspect and the lateral aspect of the proximal shoulder. PHYSICAL EXAMINATION: VITAL SIGNS: Afebrile. Vital signs stable, tenderness to palpation anteriorly. EXTREMITIES: I do not see any obvious dislocation or deformity. He resists movement. He has pain once I get to about 90 degrees of abduction. He does have pain with small movements of the joint. Neurovascularly intact. EMERGENCY DEPARTMENT COURSE: Shoulder films do not demonstrate an obvious fracture. I will write him pain medicine, rest, ice, follow up in 1 week if not improving. CLINICAL IMPRESSION: 1. Left shoulder contusion/sprain. Rob Alexandra DO T: NTS JOB: [id number] 11/28/14 0108 <Electronically signed by Rob Alexandra DO> Date Rob Alexandra DO CC: Delfina Boyd MD Date Dictated: 11/20/14852 Date Transcribed: 11/20/14852 Press Cleaner: Signed Breanna Garry Start: 11-20-2014 End: 11-20-2014 Discharge Instruction Comments: See Note; NOTES: [facility] Medical Records Department [address] [place] [address] Discharge Instruction 11/20/14828 MR#: [id number] Acct: [id number] Name: LASHA SMITH Rep #: [id number] : 1960 53 From: Rob Alexandra DO PCP: Delfina Boyd MD Status: REG ER ED Disposition - Plan for ED Patient: Chief Complaint: Upper Extremity Injury Instructions: ED Contusion, Upper Extremity, ED Shoulder Sprain Prescriptions: Hydrocodone Bitart/Apap 5-325 [Admire 5/325] 1 - 2 tablet PO Q4H PRN PRN #20 tablet PRN Reason: Pain Referrals: Delfina Boyd MD [Primary Care Provider] - 1 Week if not improving What to do if you have Problems For any increased pain, shortness of breath, bleeding, nausea or vomiting, chest pain, or any unexpected problems, contact your doctor. Call [facility] ([phone]) or report to the closest Emergency Room. Call 911 if necessary. 11/20/14829 <Electronically signed by Rob Alexandra DO> Date Rob Alexandra DO [facility] Signature (If Indicated): Date CC: Delfina Carlos Garry Start: 11-20-2014 End: 11-20-2014 Shoulder min 2 Views Comments: See Note; NOTES: [facility] [address] [place] [address] Radiology Report MR#: [id number] Acct: [id number] Name: LASHA SMITH Rep #: [id number] : 1960 M 53 From: Jm Ware MD PCP: Delfina Boyd MD Status: REG ER Study: Shoulder min 2 Views Date of Exam: 11/20/14 Exam# [id number] Ordering Dr: Rob Alexandra DO STUDY: X-RAY - LEFT SHOULDER REASON FOR EXAM: Male, 53 years old. Left shoulder pain following a fall. TECHNIQUE: 4 view(s) of the shoulder. COMPARISON: None. FINDINGS: Normal glenohumeral articulation. Normal acromioclavicular joint. Normal acromion. Normal humeral head and visualized proximal humerus. The soft tissue structures are unremarkable. Normal visualized pulmonary apex. IMPRESSION: Normal x-ray examination of the shoulder. Electronically Signed: Jm Ware MD at 8:43 EDT Tel [phone], Service support [phone], RAD/Shoulder min 2 Views IMPRESSION: Normal x-ray examination of the shoulder. Electronically Signed: Jm Ware MD at 8:43 EDT Tel [phone], Service support [phone], CC: Delfina Boyd MD; Rob Alexandra DO Press Cleaner: Signed Breanna Castañeda Start: 05-19-2014 End: 05-20-2014 Spine Lumbar without Contrast Comments: See Note; NOTES: [facility] [address] [place] [address] CAT Scan Report MR#: [id number] Acct: [id number] Name: LASHA SMITH Rep #: [id number] : 1960 M 53 From: Carlos Eduardo Gómez MD PCP: Delfina Boyd MD Status: REG CLI Study: Spine Lumbar without Contrast Date of Exam: 05/19/14 Exam# [id number] Ordering Dr: Etienne Thibodeaux MD STUDY: CT LUMBAR SPINE WITHOUT CONTRAST REASON FOR EXAM: Male, 53 years old. Lumbar spondylolisthesis. RADIATION DOSAGE (If Supplied By Facility): CTDIvol = ( 62.72 ) mGy, DLP = ( 1606.51 ) mGycm TECHNIQUE: The patient was scanned in a multi detector CT scanner. High resolution transaxial imaging was performed. Images were obtained from T12 to S3. Sagittal and coronal images were reconstructed. COMPARISON: None FINDINGS: The patient is status post L5-S1 posterior spinal fusion procedure with bilateral posterior fusion rods and interpedicular screws in place. Grade 1 L5 on S1 anterolisthesis is noted which is unchanged. Pars defects are noted bilaterally at L5. There is mild levoscoliosis centered at L2-L3 There is no vertebral body fracture. There is loss of height with endplate change and spur formation noted at the L5-S1 intervertebral disc space. Interbody bone spacers in place. L1-2: Normal endplates. Normal disc height and morphology. Normal bilateral facet joints. Normal central canal and bilateral lateral recesses. Normal bilateral intervertebral neural foramina. L2-3: Normal endplates. Normal disc height and morphology. Normal bilateral facet joints. Normal central canal and bilateral lateral recesses. Normal bilateral intervertebral neural foramina. L3-4: Mild diffuse disc bulge. Abutment of the exiting right L3 nerve root in the neural foramen. Mild facet hypertrophic change. Mild ligamentum flavum thickening. Mild spinal canal stenosis L4-5: Mild diffuse disc bulge. Moderate facet hypertrophic change. Abutment of the exiting left L4 nerve root in the neural foramen. Thickening of the ligamentum flavum. Mild spinal canal stenosis. L5-S1: Moderate diffuse disc bulge. Moderate facet hypertrophic change. Narrowing of bilateral neuroforaminal canals encroaching upon the exiting L5 nerve roots. No spinal canal stenosis. Normal visualized paraspinous soft tissue structures. IMPRESSION: 1. Postoperative change from L5-S1 posterior spinal fusion procedure with persistent grade 1 L5 on S1 anterolisthesis, unchanged from prior imaging. Multilevel degenerative disc and facet disease from L3-L5 Electronically Signed: Carlos Eduardo Gómez MD at 1:00 EST Tel , Service support [phone], CC: Delfina Boyd MD; Etienne Thibodeaux MD Press Cleaner: Signed Breanna Castañeda Start: 05-15-2014 End: 04-24-2015 Lipid panel [AGGREGATE] Rob Abreu MD Work Phone: Start: 04-04-2014 End: 04-24-2015 *Hepatic Function Panel Rob Abreu MD Work Phone: Start: 04-04-2014 End: 04-04-2014 DJN Rob Abreu MD Work Phone: Start: 04-04-2014 End: 04-04-2014 Follow Up Appt 1 year Rob Abreu MD Work Phone: Start: 01-17-2014 Colonoscopy Ag Orth Work Phone: Start: 12-06-2013 End: 12-06-2013 Hepatobilliary Imaging Comments: See Note; NOTES: [facility] [address] [place] [address] Nuclear Medicine Report MR#: [id number] Acct: [id number] Name: LASHA SMITH Rep #: [id number] : 1960 M 53 From: Jossue De Dios DO PCP: Delfina Boyd MD Status: REG CLI Study: Hepatobilliary Imaging Date of Exam: 12/06/13 Exam# [id number] Ordering Dr: Breanna Castañeda CLINICAL: 53-year-old male with reported history of right upper quadrant abdominal pain. RADIONUCLIDE HEPATOBILIARY SCINTIGRAPHY COMPARISON: Abdominal ultrasound report 12/06/13 FINDINGS: Following the intravenous administration of 5.2 mCi of Tc Mebrofenin, hepatobiliary images reveal: 1. Relatively prompt and homogeneous radiopharmaceutical concentration is noted by a normal sized liver. No parenchymal defects are identified. 2. Gallbladder activity is identified at 15 minutes post radiopharmaceutical administration. 3. Small intestinal tract is observed at 30 minutes following tracer injection. 4. Washout of the radiopharmaceutical by the hepatic parenchyma appears qualitatively normal. Cholecystokinin (0.02 ug/kg) was administered intravenously over a 30-minute period. The post CCK gallbladder ejection fraction calculated at 20 minutes following Cholecystokinin administration was noted to be 40.4 % (normal greater than 35%). During 30 minutes of post CCK imaging, there is no scintigraphic evidence of reflux of the radiotracer into the common hepatic duct or refilling of the gallbladder. IMPRESSION: 1. NORMAL 99m Tc Mebrofenin hepatobiliary imaging examination with Cholecystokinin. A. A gallbladder ejection fraction calculated to be greater than 35% following the administration of Cholecystokinin makes the probability of functional hepatobiliary disease (gallbladder and/or sphincter of Oddi dyskinesia) and/or organic hepatobiliary disease (chronic acalculous cholecystitis and/or cystic duct syndrome) to be low. (Candace Botello et al, Journal of Nuclear Medicine 32:1695, 1991). Electronically Signed: Jossue De Dios DO at 22:25 EDT Tel [phone], Service support [phone], CLINICAL: 53-year-old male with reported history of right upper quadrant abdominal pain. RADIONUCLIDE HEPATOBILIARY SCINTIGRAPHY COMPARISON: Abdominal ultrasound report 12/06/13 FINDINGS: Following the intravenous administration of 5.2 mCi of Tc Mebrofenin, hepatobiliary images reveal: 1. Relatively prompt and homogeneous radiopharmaceutical concentration is noted by a normal sized liver. No parenchymal defects are identified. 2. Gallbladder activity is identified at 15 minutes post radiopharmaceutical administration. 3. Small intestinal tract is observed at 30 minutes following tracer injection. 4. Washout of the radiopharmaceutical by the hepatic parenchyma appears qualitatively normal. Cholecystokinin (0.02 ug/kg) was administered intravenously over a 30-minute period. The post CCK gallbladder ejection fraction calculated at 20 minutes following Cholecystokinin administration was noted to be 40.4 % (normal greater than 35%). During 30 minutes of post CCK imaging, there is no scintigraphic evidence of reflux of the radiotracer into the common hepatic duct or refilling of the gallbladder. IMPRESSION: 1. NORMAL 99m Tc Mebrofenin hepatobiliary imaging examination with Cholecystokinin. A. A gallbladder ejection fraction calculated to be greater than 35% following the administration of Cholecystokinin makes the probability of functional hepatobiliary disease (gallbladder and/or sphincter of Oddi dyskinesia) and/or organic hepatobiliary disease (chronic acalculous cholecystitis and/or cystic duct syndrome) to be low. (Candace Botello et al, Journal of Nuclear Medicine 32:1695, 1990). Electronically Signed: Jossue De Dios DO at 22:26 EDT Tel [phone], Service support [phone], CC: Breanna Castañeda; Delfina Boyd MD Press Cleaner: Signed Breanna Castañeda Work Phone: Start: 12-06-2013 End: 12-06-2013 Gallbladder Comments: See Note; NOTES: [facility] [address] [place] [address] Ultrasound Report MR#: [id number] Acct: [id number] Name: LASHA SMITH Rep #: [id number] : 1960 M 53 From: Jm Ware MD PCP: Delfina Boyd MD Status: REG CLI Study: Gallbladder Date of Exam: 12/06/13 Exam# [id number] Ordering Dr: Breanna Castañeda STUDY: ABDOMINAL ULTRASOUND - RIGHT UPPER QUADRANT REASON FOR VISIT: Male, 53 years old. Abdominal pain. Nausea and vomiting. TECHNIQUE: Ultrasound evaluation of the right upper quadrant was performed with real-time and static gomez-scale imaging. TECHNICAL QUALITY: Adequate. COMPARISON: None. FINDINGS: Liver: The liver is slightly enlarged and measures 18.1 cm. There is increased echogenicity consistent with fatty infiltration. The bile ducts are within normal limits. There is hepatic color flow. The direction of portal flow is hepatopetal. There is no demonstrated mass lesion. Gallbladder: Normal distended gallbladder. The gallbladder wall measures 1.3 mm. There is a positive sonographic Becerra's sign. There is no pericholecystic fluid. There are no gallstones. Common Bile Duct (C.B.D.): The common bile duct measures 4.4 mm. Pancreas: Normal size of the head, body and tail of the pancreas. There is normal echogenicity of the pancreas. There is no demonstrated pancreatic mass or cyst. Right Kidney: Normal size of the right kidney. The right kidney measures 11.6 cm x 4.7 cm x 5.1 cm. Normal renal cortex. The right cortex measures 2.0 cm. There is no demonstrated renal mass or cyst. There is no right hydronephrosis. There is a 7 mm echogenic focus in the mid upper portion of the kidney. This may represent a small nonobstructive calculus. IMPRESSION: Mild hepatomegaly and fatty infiltration of the liver. Electronically Signed: Jm Ware MD at 9:42 EDT Tel [phone], Service support [phone], CC: Breanna Castañeda; Delfina Boyd MD Press Cleaner: Signed Breanna Castañeda Work Phone: Start: 10-21-2013 End: 10-21-2013 Spine Lumbar without Contrast Comments: See Note; NOTES: [facility] [address] [place] [address] CAT Scan Report MR#: [id number] Acct: [id number] Name: LASHA SMITH Rep #: [id number] : [id number] M 52 From: Jm Ware MD PCP: Delfina Boyd MD Status: REG CLI Study: Spine Lumbar without Contrast Date of Exam: 10/21/13 Exam# [id number] Ordering Dr: Etienne Thibodeaux MD STUDY: CT LUMBAR SPINE WITHOUT CONTRAST REASON FOR EXAM: Male, 52 years old. Prior low back surgery. Spondylolisthesis. RADIATION DOSAGE (If Supplied By Facility): CTDIvol = ( 30.00 ) mGy, DLP = ( 772.16 ) mGycm TECHNIQUE: The patient was scanned in a multi detector CT scanner. High resolution transaxial imaging was performed. Images were obtained from L1 to S1 level. Sagittal and coronal images were reconstructed. COMPARISON: Comparison is made with prior study dated June 24, 2013. FINDINGS: The patient is status post interpedicular screw fixation at the L5-S1 level. Normal lumbar lordosis. There is no substantial scoliosis. Normal vertebrae of the lumbar spine. L1-2: Normal endplates. Normal disc height and morphology. Normal bilateral facet joints. Normal central canal and bilateral lateral recesses. Normal bilateral intervertebral neural foramina. L2-3: Mild degree of anterior spondylosis. Minimal degree of diffuse posterior disc bulge. L3-4: Mild degree of disc space narrowing. Mild degree of spondylosis and facet joint osteoarthritis. Mild degree of diffuse posterior disc bulge with thickening of the ligamentum flavum. This causes mild degree of spinal stenosis. L4-5: Stable mild degree of retrolisthesis of L4 on L5. Mild degree of diffuse posterior disc bulge. No significant stenosis is seen. There is evidence of facet joint osteoarthritis. There is evidence of spondylolysis of the pars interarticularis of the L5 vertebra. L5-S1: The patient is status post fusion at the L5-S1 level. There is evidence of minimal anterior listhesis of L5 on S1. This is unchanged. No significant stenosis seen. Atherosclerotic calcification of the infrarenal abdominal aorta. IMPRESSION: Stable examination. 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 Thibodeaux L5-S1 Hayden Galicia Comment on above: decompression with transforaminal lumbar interbody fusion and pedicle screw fixation 03-15-13 Dr. Thibodeaux L5-S1 Linda Burdick Comment on above: decompression with transforaminal lumbar interbody fusion and pedicle screw fixation 03-15-13 Dr. Thibodeaux L5-S1 Hayden Tierney Comment on above: decompression with transforaminal lumbar interbody fusion and pedicle screw fixation 03-15-13 Dr. Thibodeaux L5-S1 Hayden Tierney Comment on above: decompression with transforaminal lumbar interbody fusion and pedicle screw fixation 03-15-13 Dr. 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 Hayden Tierney LP N Hayden Tierney LP N Hayden Tierney LP N Cindy Luke CMA Plan of Treatment Date Care Activity Detail Author Start: 12-07-2022 Influenza vaccination LUNG CANCER SCREENING [facility] Start: 08-27-2022 Laparoscopic appendectomy Laparoscopic, Appendectomy (Not Applicable) [facility] Start: 05-16-2022 [facility] Work Phone: Start: 05-16-2022 Procedure Education [facility]; [facility] Work Phone: Start: 05-16-2022 Provider Instructions for Treatment [facility] Work Phone: Start: 02-14-2022 Patient Education [facility] Work Phone: Start: 02-14-2022 Procedure Education [facility]; [facility] Work Phone: Start: 02-14-2022 Provider Instructions for Treatment [facility]; [facility] Work Phone: Start: 02-06-2022 Influenza vaccination INFLUENZA (#1) [facility] Start: 11-13-2021 Procedure Education [facility]; [facility] Work Phone: Start: 11-13-2021 Provider Instructions for Treatment [facility]; [facility] Work Phone: Start: 11-13-2021 Hepatitis c antibody [facility]; [facility] Work Phone: Start: 11-13-2021 Urinalysis qual/semiquant except immunoassays [facility]; [facility] Work Phone: Start: 11-13-2021 Urine albumin quantitative [facility]; [facility] Work Phone: Start: 11-13-2021 Comprehensive metabolic panel [facility]; [facility] Work Phone: Start: 11-13-2021 Blood count complete auto&auto difrntl wbc [facility]; [facility] Work Phone: Start: 11-13-2021 Assay of thyroid stimulating hormone tsh [facility]; [facility] Work Phone: Start: 11-13-2021 Lipid panel [facility]; [facility] Work Phone: Start: 08-24-2021 COVID-19 VACCINE (4 - Booster for Moderna series) COVID-19 VACCINE (4 - Booster for Moderna series) [facility] Start: 08-09-2021 Procedure Education [facility]; [facility] Work Phone: Start: 08-09-2021 Provider Instructions for Treatment [facility]; [facility] Work Phone: Start: 06-21-2021 COVID-19 VACCINE (4 - Booster for Moderna series) COVID-19 VACCINE (4 - Booster for Moderna series) [facility] Start: 06-08-2021 DEPRESSION ASSESSMENT DEPRESSION ASSESSMENT [facility] Start: 05-10-2021 Procedure Education [facility]; [facility] Work Phone: Start: 05-10-2021 Provider Instructions for Treatment [facility]; [facility] Work Phone: Start: 09-19-2020 Procedure Education [facility]; [facility] Work Phone: Start: 09-19-2020 Provider Instructions for Treatment [facility]; [facility] Work Phone: Start: 09-19-2020 Comprehensive metabolic panel Metabolic Panel, Comprehensive (52618) [facility] Work Phone: Start: 09-19-2020 TSH Qn TSH (THYROID STIMULATING HORMONE) (75922) [facility]; [facility] Work Phone: Start: 09-19-2020 Blood count complete automated CBC & PLATELETS (AUTO) (41360) [facility]; [facility] Work Phone: Start: 09-19-2020 Lipid panel LIPID PANEL (33312) [facility]; [facility] Work Phone: Start: 05-21-2020 Procedure Education [facility]; [facility] Work Phone: Start: 05-21-2020 Provider Instructions for Treatment [facility]; [facility] Work Phone: Start: 05-21-2020 Lipid panel [facility]; [facility] Work Phone: Comment on above: August 2020 Start: 05-21-2020 Urinalysis qual/semiquant except immunoassays [facility]; [facility] Work Phone: Comment on above: August 2020 Start: 05-21-2020 Urine albumin quantitative [facility]; [facility] Work Phone: Comment on above: august 2020 Start: 05-21-2020 Assay of thyroid stimulating hormone tsh [facility]; [facility] Work Phone: Start: 05-21-2020 TSH Qn TSH (00514) [facility]; [facility] Work Phone: Comment on above: August 2020 Start: 05-21-2020 Blood count complete auto&auto difrntl wbc [facility]; [facility] Work Phone: Comment on above: August 2020 Start: 05-21-2020 Comprehensive metabolic panel [facility]; [facility] Work Phone: Comment on above: August 2020 Start: 05-21-2020 HbA1c (Bld) [Mass fraction] HGB A1C (12854) [facility]; [facility] Work Phone: Comment on above: August 2020 Start: 05-21-2020 Hemoglobin glycosylated a1c [facility]; [facility] Work Phone: Start: 02-15-2020 Procedure Education [facility] Work Phone: Start: 02-15-2020 Provider Instructions for Treatment [facility] Work Phone: Start: 02-15-2020 Lipid panel [facility] Work Phone: Comment on above: May 2020 Start: 02-06-2020 Procedure Education [facility] Work Phone: Start: 02-06-2020 Provider Instructions for Treatment [facility] Work Phone: Start: 02-06-2020 Assay of thyroid stimulating hormone tsh [facility]; [facility] Work Phone: Start: 02-06-2020 Assay of prostate specific antigen total PSA (PROSTATE SPECIFIC ANTIGEN) (V76.44) [facility] Work Phone: Start: 02-06-2020 Urine albumin quantitative MICROALBUMIN: CREATININE RATIO (14225) AND (63586) [facility] Work Phone: Start: 02-06-2020 TSH Qn [facility] Work Phone: Start: 02-06-2020 Blood count complete auto&auto difrntl wbc CBC, Platelets & Auto Diff (26805) [facility] Work Phone: Start: 02-06-2020 Comprehensive metabolic panel Metabolic Panel, [facility] (37735) [facility] Work Phone: Start: 02-06-2020 Lipid panel LIPID PANEL (51836) [facility] Work Phone: Start: 11-04-2019 Procedure Education [facility] Work Phone: Start: 11-04-2019 Provider Instructions for Treatment [facility] Work Phone: Start: 11-04-2019 Assay of thyroid stimulating hormone tsh [facility]; [facility] Work Phone: Start: 11-04-2019 TSH Qn TSH (57703) [facility] Work Phone: Comment on above: November 08, 2019 Start: 11-04-2019 Assay of prostate specific antigen total [facility] Work Phone: Comment on above: november 08, 2019 Start: 11-04-2019 Blood count complete auto&auto difrntl wbc [facility] Work Phone: Comment on above: November 08, 2019 Start: 11-04-2019 Comprehensive metabolic panel [facility] Work Phone: Comment on above: November 08, 2019 Start: 11-04-2019 Lipid panel [facility] Work Phone: Comment on above: November 08, 2019 Start: 08-23-2019 Procedure Education [facility] Work Phone: Start: 08-23-2019 Provider Instructions for Treatment [facility] Work Phone: Start: 08-15-2019 Patient Education [facility] Work Phone: Start: 08-15-2019 Procedure Education [facility] Work Phone: Start: 08-15-2019 Provider Instructions for Treatment [facility] Work Phone: Start: 07-12-2019 Procedure Education [facility] Work Phone: Start: 07-12-2019 Provider Instructions for Treatment [facility] Work Phone: Start: 07-05-2019 Procedure Education [facility] Work Phone: Start: 07-05-2019 Provider Instructions for Treatment [facility] Work Phone: Start: 07-05-2019 Assay of thyroid stimulating hormone tsh [facility]; [facility] Work Phone: Start: 07-05-2019 TSH Qn TSH (THYROID STIMULATING HORMONE) (61083) [facility] Work Phone: Start: 07-05-2019 25 hydroxy includes fractions if performed [facility] Work Phone: Start: 07-05-2019 Comprehensive metabolic panel [facility] Work Phone: Start: 07-05-2019 Urine albumin quantitative [facility] Work Phone: Start: 07-05-2019 Lipid panel [facility] Work Phone: Start: 07-20-2018 Procedure Education [facility] Work Phone: Start: 07-20-2018 Provider Instructions for Treatment [facility] Work Phone: Start: 03-23-2018 Procedure Education [facility] Work Phone: Start: 03-23-2018 Provider Instructions for Treatment [facility] Work Phone: Start: 12-04-2017 Comprehensive metabolic panel [facility] Work Phone: Comment on above: stat Start: 12-04-2017 Blood count complete auto&auto difrntl wbc [facility] Work Phone: Comment on above: stat Start: 12-04-2017 Ova&parasites direct smears concentration & id [facility] Work Phone: Start: 12-04-2017 Leukocyte assmt fecal qual/semiquantitative [facility] Work Phone: Start: 12-04-2017 Iaad ia clostridium difficile toxin [facility] Work Phone: Start: 12-04-2017 Cul bact stool aerobic isol salmonella&shigell [facility] Work Phone: Start: 12-04-2017 Procedure Education [facility] Work Phone: Start: 11-23-2017 Comprehensive metabolic panel [facility] Work Phone: Start: 11-20-2017 Procedure Education [facility] Work Phone: Start: 11-20-2017 Provider Instructions for Treatment [facility] Work Phone: Start: 09-14-2017 Alpha-fetoprotein serum [facility] Work Phone: Start: 09-02-2017 Acute hepatitis panel [facility] Work Phone: Start: 09-02-2017 Alpha-fetoprotein serum [facility] Work Phone: Start: 09-01-2017 Procedure Education [facility] Work Phone: Start: 09-01-2017 Provider Instructions for Treatment [facility] Work Phone: Start: 08-11-2017 Provider Instructions for Treatment [facility] Work Phone: Start: 08-11-2017 Assay of prostate specific antigen total [facility] Work Phone: Comment on above: screening Start: 08-11-2017 Protein mass conc PSA (PROSTATE SPECIFIC ANTIGEN) (73558) [facility] Work Phone: Comment on above: screening Start: 08-11-2017 Urine albumin quantitative [facility] Work Phone: Start: 08-11-2017 Blood count manual cell count each [facility] Work Phone: Start: 08-11-2017 Comprehensive metabolic panel [facility] Work Phone: Start: 08-11-2017 Hepatic function panel [facility] Work Phone: Start: 08-11-2017 Alpha-fetoprotein serum [facility] Work Phone: Start: 08-10-2017 Patient Education [facility] Work Phone: Start: 08-10-2017 Procedure Education [facility] Work Phone: Start: 08-10-2017 Provider Instructions for Treatment [facility] Work Phone: Start: 01-17-2017 Colonoscopy COLONOSCOPY [facility] Start: 01-17-2017 COLORECTAL CANCER SCREENING COLORECTAL CANCER SCREENING [facility] Start: 12-26-2016 End: 12-26-2016 Appointment Appointment [facility] Work Phone: Start: 12-26-2016 End: 12-26-2016 Bacterica wound culture *Culture and Sensitivity, wound [facility] Work Phone: Start: 12-26-2016 End: 12-26-2016 Drainage of skin abscess Incision & Drainage Abscess Simple/Single [facility] Work Phone: Start: 10-29-2016 Hepatitis B surface antibody level LDL CHOLESTEROL [facility] Start: 05-14-2016 Procedure Education [facility] Work Phone: Start: 05-14-2016 Provider Instructions for Treatment [facility] Work Phone: Start: 05-14-2016 Lipid panel [facility] Work Phone: Comment on above: fax to jay carr Start: 05-14-2016 Assay of prostate specific antigen total [facility] Work Phone: Start: 05-14-2016 Protein mass conc PSA (PROSTATE SPECIFIC ANTIGEN) (V76.44) [facility] Work Phone: Start: 05-14-2016 Urine albumin quantitative [facility] Work Phone: Start: 05-14-2016 Comprehensive metabolic panel [facility] Work Phone: Start: 05-14-2016 Blood count complete auto&auto difrntl wbc [facility] Work Phone: Start: 05-12-2016 End: 05-12-2016 *Hepatic Function Panel *Hepatic Function Panel [facility] Work Phone: Start: 05-12-2016 End: 11-04-2016 MUMTAZ PANDYA [facility] Work Phone: Start: 05-12-2016 End: 11-04-2016 Follow Up Appt 6 months Follow Up Appt 6 months [facility] Work Phone: Start: 05-12-2016 End: 05-12-2016 Lipid panel [AGGREGATE] *Lipid Profile CC PCP [facility] Work Phone: Start: 01-15-2016 Procedure Education [facility] Work Phone: Start: 01-15-2016 Provider Instructions for Treatment [facility] Work Phone: Start: 01-15-2016 25 hydroxy includes fractions if performed [facility] Work Phone: Start: 01-15-2016 Cobalamin (Vitamin B12) mass conc VITAMIN B12 AND FOLATES (18394) [facility] Work Phone: Start: 01-15-2016 Cyanocobalamin vitamin b-12 [facility]; [facility] Work Phone: Start: 01-15-2016 Urine albumin quantitative [facility] Work Phone: Start: 01-15-2016 Lipid panel [facility] Work Phone: Start: 01-15-2016 Comprehensive metabolic panel [facility] Work Phone: Start: 01-15-2016 Blood count complete auto&auto difrntl wbc [facility] Work Phone: Start: 10-30-2015 End: 10-30-2015 DJN DJN [facility] Work Phone: Start: 10-30-2015 End: 10-30-2015 Follow Up Appt 6 months Follow Up Appt 6 months [facility] Work Phone: Start: 10-15-2015 Urine albumin quantitative [facility] Work Phone: Start: 10-15-2015 Comprehensive metabolic panel [facility] Work Phone: Start: 10-15-2015 Lipid panel [facility] Work Phone: Start: 10-15-2015 Blood count manual cell count each [facility] Work Phone: Start: 09-20-2015 End: 10-30-2015 *Hepatic Function Panel *Hepatic Function Panel [facility] Work Phone: Start: 09-20-2015 End: 10-30-2015 Lipid panel [AGGREGATE] *Lipid Profile CC PCP [facility] Work Phone: Start: 08-16-2015 Lipid panel [facility] Work Phone: Comment on above: recheck in 6 weeks fax a copy to Dr. Huan robles Start: 08-06-2015 Hemoglobin A1c/Hemoglobin.total mass fraction (Bld) HGB A1C (29961) [facility] Work Phone: Start: 08-06-2015 Hemoglobin glycosylated a1c [facility]; [facility] Work Phone: Start: 07-16-2015 Patient Education [facility] Work Phone: Start: 07-16-2015 Procedure Education [facility] Work Phone: Start: 04-24-2015 End: 04-24-2015 MUMTAZ PANDYA [facility] Work Phone: Start: 04-24-2015 End: 04-24-2015 Follow Up Appt 1 year Follow Up Appt 1 year [facility] Work Phone: Start: 04-24-2015 End: 08-07-2015 Lipid panel [AGGREGATE] *Lipid Profile CC PCP [facility] Work Phone: Start: 03-26-2015 Procedure Education [facility] Work Phone: Start: 05-15-2014 End: 04-24-2015 Lipid panel [AGGREGATE] *Lipid Profile CC PCP [facility] Work Phone: Start: 04-04-2014 End: 04-24-2015 *Hepatic Function Panel *Hepatic Function Panel [facility] Work Phone: Start: 04-04-2014 End: 04-04-2014 MUMTAZ PANDYA [facility] Work Phone: Start: 04-04-2014 End: 04-04-2014 Follow Up Appt 1 year Follow Up Appt 1 year [facility] Work Phone: Start: 03-16-2014 Provider Instructions for Treatment [facility] Work Phone: Start: 12-14-2013 ALP enzyme act/vol ALKALINE PHOSPHATASE (62796) [facility] Work Phone: Start: 12-14-2013 Assay of phosphatase alkaline [facility]; [facility] Work Phone: Start: 12-13-2013 Provider Instructions for Treatment [facility] Work Phone: Start: 12-13-2013 Lipid panel [facility] Work Phone: Start: 11-29-2013 Provider Instructions for Treatment [facility] Work Phone: Start: 2013 PROSTATE CANCER SCREENING DISCUSSION PROSTATE CANCER SCREENING DISCUSSION [facility] Start: 11-07-2013 Provider Instructions for Treatment [facility] Work Phone: Start: 11-15-2012 Blood count complete automated [facility] Work Phone: Start: 11-15-2012 Molecule isolate nucleic [facility] Work Phone: Comment on above: send copy to Dr. barnes Start: 11-15-2012 Lactate dehydrogenase ldh [facility] Work Phone: Start: 11-15-2012 Carboxyhemoglobin quantitative [facility] Work Phone: Start: 11-15-2012 Assay of erythropoietin [facility] Work Phone: Start: 11-15-2012 Genetic examination [facility] Work Phone: Start: 11-15-2012 Nucleic acid, high resolute [facility] Work Phone: Start: 11-15-2012 Molecule nucleic ampli 2 seq [facility] Work Phone: Start: 11-15-2012 Patient Education [facility] Work Phone: Start: 10-21-2012 Patient Education [facility] Work Phone: Start: 10-21-2012 Blood count manual cell count each [facility] Work Phone: Start: 10-21-2012 Comprehensive metabolic panel [facility] Work Phone: Start: 10-21-2012 Lipid panel [facility] Work Phone: Start: 10-21-2012 Urine albumin quantitative [facility] Medicine Work Phone: Start: 10-21-2012 Urnls dip stick/tablet reagent auto microscopy [facility] Work Phone: Start: 07-22-2012 Patient Education [facility] Work Phone: Start: 03-29-2012 Hemoglobin A1c/Hemoglobin.total mass fraction (Bld) Hemoglobin Glyclated (HGB A1C) (25267) [facility] Work Phone: Start: 03-29-2012 Hemoglobin glycosylated a1c [facility] Work Phone: Start: 12-29-2011 Urnls dip stick/tablet reagent auto microscopy [facility] Work Phone: Start: 12-29-2011 Urine albumin quantitative [facility] Work Phone: Start: 12-29-2011 Comprehensive metabolic panel [facility] Work Phone: Start: 12-29-2011 Lipid panel [facility] Work Phone: Start: 12-29-2011 Blood count manual cell count each [facility] Work Phone: Start: 05-12-2011 Provider Instructions for Treatment [facility] Work Phone: Start: 05-12-2011 Assay of prostate specific antigen total [facility] Work Phone: Start: 05-12-2011 Protein mass conc PSA (PROSTATE SPECIFIC ANTIGEN) (V76.44) [facility] Work Phone: Start: 05-12-2011 Urnls dip stick/tablet reagent auto microscopy [facility] Work Phone: Start: 05-12-2011 Urine albumin quantitative [facility] Work Phone: Start: 05-12-2011 Comprehensive metabolic panel [facility] Work Phone: Start: 05-12-2011 Lipid panel [facility] Work Phone: Start: 05-12-2011 Blood count manual cell count each [facility] Work Phone: Start: 01-06-2011 Hepatic function panel [facility] Work Phone: Start: 01-06-2011 Lipid panel [facility] Work Phone: Start: 08-12-2010 Urine albumin quantitative [facility] Work Phone: Start: 08-12-2010 Comprehensive metabolic panel [facility] Work Phone: Start: 08-12-2010 Lipid panel [facility] Work Phone: Start: 08-12-2010 Blood count manual cell count each [facility] Work Phone: Start: 07-11-2010 Provider Instructions for Treatment [facility] Work Phone: Start: 07-11-2009 Provider Instructions for Treatment [facility] Work Phone: Start: 12-01-2008 Hepatic function panel [facility] Work Phone: Start: 12-01-2008 Lipid panel [facility] Work Phone: Start: 11-30-2008 Provider Instructions for Treatment [facility] Work Phone: Start: 2008 SHINGRIX VACCINE (1 of 2) SHINGRIX VACCINE (1 of 2) [facility] Start: 08-23-2008 Provider Instructions for Treatment [facility] Work Phone: Start: 08-23-2008 Hepatic function panel [facility] Work Phone: Start: 08-23-2008 Lipid panel [facility] Work Phone: Start: 03-20-2008 Provider Instructions for Treatment [facility] Work Phone: Start: 12-27-2007 Provider Instructions for Treatment [facility] Work Phone: Start: 12-13-2007 Urinalysis qual/semiquant except immunoassays [facility] Work Phone: Start: 12-13-2007 Assay of prostate specific antigen total [facility] Work Phone: Start: 12-13-2007 Protein mass conc PSA (PROSTATE SPECIFIC ANTIGEN) (V76.44) [facility] Work Phone: Start: 12-13-2007 Comprehensive metabolic panel [facility] Work Phone: Start: 12-13-2007 Lipid panel [facility] Work Phone: Start: 05-11-2007 Provider Instructions for Treatment [facility] Work Phone: Start: 04-22-2007 Provider Instructions for Treatment [facility] Work Phone: Start: 01-07-2007 Provider Instructions for Treatment [facility] Work Phone: Start: 01-07-2007 Lipid panel [facility] Work Phone: Start: 01-07-2007 Assay of thyroid stimulating hormone tsh [facility]; [facility] Work Phone: Start: 01-07-2007 Thyrotropin Qn TSH (66865) [facility] Work Phone: Start: 12-16-2006 Provider Instructions for Treatment [facility] Work Phone: Start: 12-16-2006 Cul bact xcpt urine blood/stool aerobic isol [facility] Work Phone: Start: 11-16-2006 Provider Instructions for Treatment [facility] Work Phone: Start: 09-24-2006 Provider Instructions for Treatment [facility] Work Phone: Start: 08-13-2006 Provider Instructions for Treatment [facility] Work Phone: Start: 07-30-2006 Provider Instructions for Treatment [facility] Work Phone: Start: 06-16-2006 Provider Instructions for Treatment [facility] Work Phone: Start: 11-28-2003 COLOGUARD (FIT-DNA) COLOGUARD (FIT-DNA) [facility] Start: 11-28-[address] COLONOGRAPHY [facility] Start: 11-28-2003 FECAL OCCULT BLOOD FECAL OCCULT BLOOD [facility] Start: 11-28-2003 SIGMOIDOSCOPY SIGMOIDOSCOPY [facility] Start: 1977 Urine microalbumin profile DTAP,TDAP,TD (1 - Tdap) [facility] Start: 1976 ANNUAL PCP TEAM CHRONIC DISEASE VISIT ANNUAL PCP TEAM CHRONIC DISEASE VISIT [facility] Start: 1976 BP CONTROLLED (<130/80) BP CONTROLLED (<130/80) [facility] Start: 1976 HEPATITIS C SCREENING HEPATITIS C SCREENING [facility] Start: 1976 HIV SCREENING HIV SCREENING [facility] Start: 1970 Adult depression screening assessment DEPRESSION SCREENING [facility] Start: 1968 3 comp foot exam completed DIABETIC FOOT EXAM [facility] Start: 1968 Hepatitis B screening URINE ALBUMIN:CREATININE RATIO [facility] Start: 1968 Hepatitis C antibody, confirmatory test DILATED RETINAL EXAM [facility] Start: 1964 PNEUMOCOCCAL (1 - PCV) PNEUMOCOCCAL (1 - PCV) [facility] Start: 11-28-1963 Hemoglobin A1c/Hemoglobin.total in Blood HBA1C [facility] Patient Education [facility] Work Phone: Patient referral [facility] Work Phone: [facility] Work Phone: [facility] Work Phone: [facility] Work Phone: [facility] Work Phone[facility] Work Phone: [facility] Work Phone: [facility] Work Phone: [facility] Work Phone: [facility] Work Phone: [facility] Work Phone: [facility] Work Phone[facility] Work Phone: [facility] Work Phone: [facility] Work Phone: [facility] Work Phone: [facility] Work Phone: [facility] Work Phone: [facility] Work Phone: [facility] Work Phone: [facility] Work Phone: [facility] Work Phone: [facility] Work Phone: [facility] Work Phone: [facility] Work Phone: [facility] Work Phone: [facility] Work Phone: [facility] Work Phone: [facility] Work Phone: [facility]; [facility] Work Phone: [facility]; [facility] Work Phone: Immunizations Immunization Date Immunization Notes Care Provider Loren cardona 04-26-2021 COVID-Moderna (50 MCG/0.25 ML) Breanna Castañeda CNP Work Phone: [facility]; [facility] Work Phone: 09-13-2020 COVID-19 (Moderna) [facility]; [facility] Work Phone: 08-16-2020 COVID-19 (Moderna) [facility]; [facility] Work Phone: 12-26-2016 tetanus toxoid, reduced diphtheria toxoid, and acellular pertussis vaccine, adsorbed Timothy BLACK [facility] Work Phone: 12-26-2016 [id number] Timothy BLACK [facility] Work Phone: 03-09-2014 influenza, seasonal, injectable [facility] 03-08-2013 Pneumococcal Vaccine [facility] Work Phone: 03-08-2013 pneumococcal vaccine , unspecified formulation [facility] Payers Date Payer Category Payer Medicare [id number] 2025 Self-pay [id number] 2021 Medicaid [id number] 2021 Medicaid [id number] 2021 Unknown [employer] [place] [employer] [place] [place] [id number] 2021-Present [phone] [place] [place] [address] Indemnity [id number] 2021 Unknown [id number] 2021 Unknown [id number] 2015 Unknown [id number] 2004 Unknown [id number] 1958 Unknown [id number] Unknown [facility] PACKAGE PLAN [id number] Unknown [id number] Unknown [id number] Unknown [id number] Unknown [id number] Unknown [id number] Unknown [id number] Unknown [id number] Unknown [id number] Unknown [id number] Unknown [id number] Unknown 1983 [id number] Unknown [id number] Unknown [id number] Social History Date Type Detail Facility Start: 12-06-2021 End: 04-09-2022 Caffeine Use Current every day smoker [facility] Work Phone: Comment on above: 3 qd and does 1/2 an d 1/2 Inactive Lives with spouse a pack a month as of 12.5.11 Current Work/Study Status: Unemployed looking for work. [facility] Work Phone: Tobacco Use: Current every da y smoker. [facility] Work Phone: Unemployed looki ng for work. [facility]; [facility] Work Phone: Current every da y smoker. [facility]; [facility] Work Phone: Start: 12-06-2021 End: 08-27-2022 Tobacco smoking status [facility] Unknown if ever smoked [facility] Start: 03-08-2014 None [facility] Start: 02-17-2014 Spouse/ Signif icant Other [facility] Start: 12-06-2021 Cigarettes [facility] Start: 1960 Sex Assigned At Male [facility] Start: 12-06-2021 End: 04-09-2022 Tobacco smoking status [facility] Smokes tobacco daily [facility] History of tobacco use Cigarette Smoker [facility] Start: 12-07-2021 Alcohol intake Current drinke r of alcohol (finding) [facility] Start: 10-18-2015 End: 04-09-2022 Tobacco Comment up to 10/day [facility] Start: 1960 Sex Assigned At Not on file [facility] Start: 2021 End: 04-09-2022 Exposure to SARS-CoV-2 (event) Not sure [facility] Start: 12-18-2021 End: 04-09-2022 Alcohol intake Ex-drinker (finding) [facility] Start: 12-06-2021 End: 04-09-2022 Tobacco use and exposure Smokeless tobacco non-user [facility] Medical Equipment Procedure Code Equipment Code Equipment Origin al Text Equipment Identifier Dates ReliOn Confirm/m icro Test In Vitro Strip 1 (one) Strip test bid for 30 days Quantity: 100 {Strip} Refills: 11 Ordered: 01-Sep-2017 Elaineoralia JOSE Breanna Castañeda DISTRICT LOSS PREVENTION MANAGER, Breanna Mcgee Start : 01-Sep-2017 Active Start: 09-01-2017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 Indication:Diabetes mellitus type 2, uncontrolled (Renamed from Uncontrolled type 2 diabetes mellitus) Start:06-Feb-2020 Instruction Type:Patient Education Patient Instructions Indication:Diabetes mellitus type 2, uncontrolled (Renamed from Uncontrolled type 2 diabetes mellitus) Start:06-Feb-2020 Instruction Type:Provider Instructions for Treatment Patient Instructions Indication:BMI 34.0-34.9,adult Start:04-Nov-2019 Instruction Type:Provider Instructions for Treatment How to access health informa tion online Indication:Diabetes mellitus type 2, uncontrolled (Renamed from Uncontrolled type 2 diabetes mellitus) Start:04-Nov-2019 Instruction Type:Patient Education How to access health informa tion online - Detail Indication:Diabetes mellitus type 2, uncontrolled (Renamed from Uncontrolled type 2 diabetes mellitus) Start:04-Nov-2019 Instruction Type:Patient Education Patient Instructions Indication:Diabetes mellitus type 2, uncontrolled (Renamed from Uncontrolled type 2 diabetes mellitus) Start:04-Nov-2019 Instruction Type:Provider Instructions for Treatment How to access health informa tion online Indication:Current smoker Start:23-Aug-2019 Instruction Type:Patient Education How to access health informa tion online - Detail Indication:BMI 34.0-34.9,adult Start:23-Aug-2019 Instruction Type:Patient Education Patient Instructions Indication:Current smoker Start:23-Aug-2019 Instruction Type:Provider Instructions for Treatment How to access health informa tion online Indication:Flu-like symptoms Start:15-Aug-2019 Instruction Type:Patient Education How to access health informa tion online - Detail Indication:Flu-like symptoms Start:15-Aug-2019 Instruction Type:Patient Education Patient Instructions Indication:Flu-like symptoms Start:15-Aug-2019 Instruction Type:Provider Instructions for Treatment How to access health informa tion online Indication:Nonsmoker Start:12-Jul-2019 Instruction Type:Patient Education How to access health informa tion online - Detail Indication:Nonsmoker Start:12-Jul-2019 Instruction Type:Patient Education Patient Instructions Indication:Nonsmoker Start:12-Jul-2019 Instruction Type:Provider Instructions for Treatment How to access health informa tion online Indication:Nonsmoker Start:05-Jul-2019 Instruction Type:Patient Education How to access health informa tion online - Detail Indication:Nonsmoker Start:05-Jul-2019 Instruction Type:Patient Education Patient Instructions Indication:Nonsmoker Start:05-Jul-2019 Instruction Type:Provider Instructions for Treatment How to access health informa tion online Indication:Nonsmoker Start:20-Jul-2018 Instruction Type:Patient Education How to access health informa tion online - Detail Indication:Nonsmoker Start:20-Jul-2018 Instruction Type:Patient Education Patient Instructions Indication:Nonsmoker Start:20-Jul-2018 Instruction Type:Provider Instructions for Treatment How to access health informa tion online Indication:Nonsmoker Start:23-Mar-2018 Instruction Type:Patient Education How to access health informa tion online - Detail Indication:Nonsmoker Start:23-Mar-2018 Instruction Type:Patient Education Patient Instructions Indication:Nonsmoker Start:23-Mar-2018 Instruction Type:Provider Instructions for Treatment How to access health informa tion online Indication:Diarrhea Start:04-Dec-2017 Instruction Type:Patient Education How to access health informa tion online - Detail Indication:Diarrhea Start:04-Dec-2017 Instruction Type:Patient Education Patient Instructions Indication:Diarrhea Start:04-Dec-2017 Instruction Type:Provider Instructions for Treatment How to access health informa tion online Indication:Diabetes mellitus type 2, uncontrolled (Renamed from Uncontrolled type 2 diabetes mellitus) Start:20-Nov-2017 Instruction Type:Patient Education How to access health informa tion online - Detail Indication:Diabetes mellitus type 2, uncontrolled (Renamed from Uncontrolled type 2 diabetes mellitus) Start:20-Nov-2017 Instruction Type:Patient Education Patient Instructions Indication:Diabetes mellitus type 2, uncontrolled (Renamed from Uncontrolled type 2 diabetes mellitus) Start:20-Nov-2017 Instruction Type:Provider Instructions for Treatment How to access health informa tion online Indication:Anxiety and depression Start:01-Sep-2017 Instruction Type:Patient Education How to access health informa tion online - Detail Indication:Anxiety and depression Start:01-Sep-2017 Instruction Type:Patient Education Patient Instructions Indication:Nonsmoker Start:01-Sep-2017 Instruction Type:Provider Instructions for Treatment Patient Instruction s Indication:Current smoker Start:11-Aug-2017 Instruction Type:Provider Instructions for Treatment How to access health informa tion online Indication:Current smoker Start:10-Aug-2017 Instruction Type:Patient Education How to access health informa tion online - Detail Indication:Current smoker Start:10-Aug-2017 Instruction Type:Patient Education Patient Instructions Indication:Post-nasal drainage Start:10-Aug-2017 Instruction Type:Provider Instructions for Treatment How to access health informa tion online Indication:Other abnormal glucose Start:14-May-2016 Instruction Type:Patient Education How to access health informa tion online - Detail Indication:Other abnormal glucose Start:14-May-2016 Instruction Type:Patient Education Patient Instructions Indication:Other abnormal glucose Start:14-May-2016 Instruction Type:Provider Instructions for Treatment How to access health informa tion online Indication:Other abnormal glucose Start:15-Jan-2016 Instruction Type:Patient Education How to access health informa tion online - Detail Indication:Other abnormal glucose Start:15-Jan-2016 Instruction Type:Patient Education Patient Instructions Indication:Other abnormal glucose Start:15-Jan-2016 Instruction Type:Provider Instructions for Treatment How to access health informa tion online Indication:Umbilical hernia Start:15-Oct-2015 Instruction Type:Patient Education How to access health informa tion online - Detail Indication:Umbilical hernia Start:15-Oct-2015 Instruction Type:Patient Education Patient Instructions Indication:Umbilical hernia Start:15-Oct-2015 Instruction Type:Provider Instructions for Treatment How to access health informa tion online Indication:Umbilical hernia Start:14-Sep-2015 Instruction Type:Patient Education How to access health informa tion online - Detail Indication:Umbilical hernia Start:14-Sep-2015 Instruction Type:Patient Education Patient Instructions Indication:Umbilical hernia Start:14-Sep-2015 Instruction Type:Provider Instructions for Treatment How to access health informa tion online Indication:Benign essential hypertension Start:16-Jul-2015 Instruction Type:Patient Education How to access health informa tion online - Detail Indication:Benign essential hypertension Start:16-Jul-2015 Instruction Type:Patient Education Patient Instructions Indication:Benign essential hypertension Start:16-Jul-2015 Instruction Type:Provider Instructions for Treatment How to access health informa tion online Indication:Syncope and collapse Start:04-Jun-2015 Instruction Type:Patient Education How to access health informa tion online - Detail Indication:Syncope and collapse Start:04-Jun-2015 Instruction Type:Patient Education Patient Instructions Indication:Syncope and collapse Start:04-Jun-2015 Instruction Type:Provider Instructions for Treatment Patient Instructions Indication:Knee Pain (Renamed from Gonalgia) Start:26-Mar-2015 Instruction Type:Provider Instructions for Treatment Patient Instructions Indication:Rash Start:21-Apr-2013 Instruction Type:Provider Instructions for Treatment Patient Instructions Indication:Anxiety and depression Start:15-Nov-2012 Instruction Type:Provider Instructions for Treatment Patient Instructions Indication:Benign essential hypertension Start:21-Oct-2012 Instruction Type:Provider Instructions for Treatment Patient Instructions Indication:Hypercholesterolemia Start:22-Jul-2012 Instruction Type:Provider Instructions for Treatment Sore throat: diagnosis and treatment Indication:Pharyngitis, acute Start:16-Dec-2006 Instruction Type:Patient Education [facility] Work Phone: Instructions* Name Dates Details Patient Instructions Indication:BMI 35.0-35.9,adult Start:19-Sep-2020 Instruction Type:Provider Instructions for Treatment How to Access Health Informa tion Online using Patient Portal and [employer] Apps Indication:Diabetes mellitus type 2, uncontrolled (Renamed from Uncontrolled type 2 diabetes mellitus) Start:19-Sep-2020 Instruction Type:Patient Education Patient Instructions come in fasting in August a week before your next apt. Indication:BMI 34.0-34.9,adult Start:21-May-2020 Instruction Type:Provider Instructions for Treatment How to Access Health Informa tion Online using Patient Portal and 3rd [employer] Apps Indication:BMI 34.0-34.9,adult Start:21-May-2020 Instruction Type:Patient Education How to access health informa tion online - Detail Indication:BMI 34.0-34.9,adult Start:15-Feb-2020 Instruction Type:Patient Education Patient Instructions Indication:BMI 34.0-34.9,adult Start:15-Feb-2020 Instruction Type:Provider Instructions for Treatment How to access health informa tion online Indication:Diabetes mellitus type 2, uncontrolled (Renamed from Uncontrolled type 2 diabetes mellitus) Start:06-Feb-2020 Instruction Type:Patient Education How to access health informa tion online - Detail Indication:Diabetes mellitus type 2, uncontrolled (Renamed from Uncontrolled type 2 diabetes mellitus) Start:06-Feb-2020 Instruction Type:Patient Education Patient Instructions Indication:Diabetes mellitus type 2, uncontrolled (Renamed from Uncontrolled type 2 diabetes mellitus) Start:06-Feb-2020 Instruction Type:Provider Instructions for Treatment Patient Instructions Indication:BMI 34.0-34.9,adult Start:04-Nov-2019 Instruction Type:Provider Instructions for Treatment How to access health informa tion online Indication:Diabetes mellitus type 2, uncontrolled (Renamed from Uncontrolled type 2 diabetes mellitus) Start:04-Nov-2019 Instruction Type:Patient Education How to access health informa tion online - Detail Indication:Diabetes mellitus type 2, uncontrolled (Renamed from Uncontrolled type 2 diabetes mellitus) Start:04-Nov-2019 Instruction Type:Patient Education Patient Instructions Indication:Diabetes mellitus type 2, uncontrolled (Renamed from Uncontrolled type 2 diabetes mellitus) Start:04-Nov-2019 Instruction Type:Provider Instructions for Treatment How to access health informa tion online Indication:Current smoker Start:23-Aug-2019 Instruction Type:Patient Education How to access health informa tion online - Detail Indication:BMI 34.0-34.9,adult Start:23-Aug-2019 Instruction Type:Patient Education Patient Instructions Indication:Current smoker Start:23-Aug-2019 Instruction Type:Provider Instructions for Treatment How to access health informa tion online Indication:Flu-like symptoms Start:15-Aug-2019 Instruction Type:Patient Education How to access health informa tion online - Detail Indication:Flu-like symptoms Start:15-Aug-2019 Instruction Type:Patient Education Patient Instructions Indication:Flu-like symptoms Start:15-Aug-2019 Instruction Type:Provider Instructions for Treatment How to access health informa tion online Indication:Nonsmoker Start:12-Jul-2019 Instruction Type:Patient Education How to access health informa tion online - Detail Indication:Nonsmoker Start:12-Jul-2019 Instruction Type:Patient Education Patient Instructions Indication:Nonsmoker Start:12-Jul-2019 Instruction Type:Provider Instructions for Treatment How to access health informa tion online Indication:Nonsmoker Start:05-Jul-2019 Instruction Type:Patient Education How to access health informa tion online - Detail Indication:Nonsmoker Start:05-Jul-2019 Instruction Type:Patient Education Patient Instructions Indication:Nonsmoker Start:05-Jul-2019 Instruction Type:Provider Instructions for Treatment How to access health informa tion online Indication:Nonsmoker Start:20-Jul-2018 Instruction Type:Patient Education How to access health informa tion online - Detail Indication:Nonsmoker Start:20-Jul-2018 Instruction Type:Patient Education Patient Instructions Indication:Nonsmoker Start:20-Jul-2018 Instruction Type:Provider Instructions for Treatment How to access health informa tion online Indication:Nonsmoker Start:23-Mar-2018 Instruction Type:Patient Education How to access health informa tion online - Detail Indication:Nonsmoker Start:23-Mar-2018 Instruction Type:Patient Education Patient Instructions Indication:Nonsmoker Start:23-Mar-2018 Instruction Type:Provider Instructions for Treatment How to access health informa tion online Indication:Diarrhea Start:04-Dec-2017 Instruction Type:Patient Education How to access health informa tion online - Detail Indication:Diarrhea Start:04-Dec-2017 Instruction Type:Patient Education Patient Instructions Indication:Diarrhea Start:04-Dec-2017 Instruction Type:Provider Instructions for Treatment How to access health informa tion online Indication:Diabetes mellitus type 2, uncontrolled (Renamed from Uncontrolled type 2 diabetes mellitus) Start:20-Nov-2017 Instruction Type:Patient Education How to access health informa tion online - Detail Indication:Diabetes mellitus type 2, uncontrolled (Renamed from Uncontrolled type 2 diabetes mellitus) Start:20-Nov-2017 Instruction Type:Patient Education Patient Instructions Indication:Diabetes mellitus type 2, uncontrolled (Renamed from Uncontrolled type 2 diabetes mellitus) Start:20-Nov-2017 Instruction Type:Provider Instructions for Treatment How to access health informa tion online Indication:Anxiety and depression Start:01-Sep-2017 Instruction Type:Patient Education How to access health informa tion online - Detail Indication:Anxiety and depression Start:01-Sep-2017 Instruction Type:Patient Education Patient Instructions Indication:Nonsmoker Start:01-Sep-2017 Instruction Type:Provider Instructions for Treatment Patient Instruction s Indication:Current smoker Start:11-Aug-2017 Instruction Type:Provider Instructions for Treatment How to access health informa tion online Indication:Current smoker Start:10-Aug-2017 Instruction Type:Patient Education How to access health informa tion online - Detail Indication:Current smoker Start:10-Aug-2017 Instruction Type:Patient Education Patient Instructions Indication:Post-nasal drainage Start:10-Aug-2017 Instruction Type:Provider Instructions for Treatment How to access health informa tion online Indication:Other abnormal glucose Start:14-May-2016 Instruction Type:Patient Education How to access health informa tion online - Detail Indication:Other abnormal glucose Start:14-May-2016 Instruction Type:Patient Education Patient Instructions Indication:Other abnormal glucose Start:14-May-2016 Instruction Type:Provider Instructions for Treatment How to access health informa tion online Indication:Other abnormal glucose Start:15-Jan-2016 Instruction Type:Patient Education How to access health informa tion online - Detail Indication:Other abnormal glucose Start:15-Jan-2016 Instruction Type:Patient Education Patient Instructions Indication:Other abnormal glucose Start:15-Jan-2016 Instruction Type:Provider Instructions for Treatment How to access health informa tion online Indication:Umbilical hernia Start:15-Oct-2015 Instruction Type:Patient Education How to access health informa tion online - Detail Indication:Umbilical hernia Start:15-Oct-2015 Instruction Type:Patient Education Patient Instructions Indication:Umbilical hernia Start:15-Oct-2015 Instruction Type:Provider Instructions for Treatment How to access health informa tion online Indication:Umbilical hernia Start:14-Sep-2015 Instruction Type:Patient Education How to access health informa tion online - Detail Indication:Umbilical hernia Start:14-Sep-2015 Instruction Type:Patient Education Patient Instructions Indication:Umbilical hernia Start:14-Sep-2015 Instruction Type:Provider Instructions for Treatment How to access health informa tion online Indication:Benign essential hypertension Start:16-Jul-2015 Instruction Type:Patient Education How to access health informa tion online - Detail Indication:Benign essential hypertension Start:16-Jul-2015 Instruction Type:Patient Education Patient Instructions Indication:Benign essential hypertension Start:16-Jul-2015 Instruction Type:Provider Instructions for Treatment How to access health informa tion online Indication:Syncope and collapse Start:04-Jun-2015 Instruction Type:Patient Education How to access health informa tion online - Detail Indication:Syncope and collapse Start:04-Jun-2015 Instruction Type:Patient Education Patient Instructions Indication:Syncope and collapse Start:04-Jun-2015 Instruction Type:Provider Instructions for Treatment Patient Instructions Indication:Knee Pain (Renamed from Gonalgia) Start:26-Mar-2015 Instruction Type:Provider Instructions for Treatment Patient Instructions Indication:Rash Start:21-Apr-2013 Instruction Type:Provider Instructions for Treatment Patient Instructions Indication:Anxiety and depression Start:15-Nov-2012 Instruction Type:Provider Instructions for Treatment Patient Instructions Indication:Benign essential hypertension Start:21-Oct-2012 Instruction Type:Provider Instructions for Treatment Patient Instructions Indication:Hypercholesterolemia Start:22-Jul-2012 Instruction Type:Provider Instructions for Treatment Sore throat: diagnosis and treatment Indication:Pharyngitis, acute Start:16-Dec-2006 Instruction Type:Patient Education [facility]; [facility] Work Phone: Instructions* Name Dates Details DISCONTINUED - CBC, PLATELET S & AUT DIFF ([id number]) Indication:Diabetes mellitus type 2, uncontrolled (Renamed from Uncontrolled type 2 diabetes mellitus) Start:10-May-2021 Instruction Type:Patient Education Patient Instructions Indication:Nonsmoker Start:10-May-2021 Instruction Type:Provider Instructions for Treatment How to Access Health Informa tion Online using Patient Portal and [employer]rd [employer] Apps Indication:Nonsmoker Start:10-May-2021 Instruction Type:Patient Education Patient Instructions Indication:BMI 35.0-35.9,adult Start:19-Sep-2020 Instruction Type:Provider Instructions for Treatment How to Access Health Informa tion Online using Patient Portal and [employer] Apps Indication:Diabetes mellitus type 2, uncontrolled (Renamed from Uncontrolled type 2 diabetes mellitus) Start:19-Sep-2020 Instruction Type:Patient Education Patient Instructions come in fasting in August a week before your next apt. Indication:BMI 34.0-34.9,adult Start:21-May-2020 Instruction Type:Provider Instructions for Treatment How to Access Health Informa tion Online using Patient Portal and [employer]rd [employer] Apps Indication:BMI 34.0-34.9,adult Start:21-May-2020 Instruction Type:Patient Education How to access health informa tion online - Detail Indication:BMI 34.0-34.9,adult Start:15-Feb-2020 Instruction Type:Patient Education Patient Instructions Indication:BMI 34.0-34.9,adult Start:15-Feb-2020 Instruction Type:Provider Instructions for Treatment How to access health informa tion online Indication:Diabetes mellitus type 2, uncontrolled (Renamed from Uncontrolled type 2 diabetes mellitus) Start:06-Feb-2020 Instruction Type:Patient Education How to access health informa tion online - Detail Indication:Diabetes mellitus type 2, uncontrolled (Renamed from Uncontrolled type 2 diabetes mellitus) Start:06-Feb-2020 Instruction Type:Patient Education Patient Instructions Indication:Diabetes mellitus type 2, uncontrolled (Renamed from Uncontrolled type 2 diabetes mellitus) Start:06-Feb-2020 Instruction Type:Provider Instructions for Treatment Patient Instructions Indication:BMI 34.0-34.9,adult Start:04-Nov-2019 Instruction Type:Provider Instructions for Treatment How to access health informa tion online Indication:Diabetes mellitus type 2, uncontrolled (Renamed from Uncontrolled type 2 diabetes mellitus) Start:04-Nov-2019 Instruction Type:Patient Education How to access health informa tion online - Detail Indication:Diabetes mellitus type 2, uncontrolled (Renamed from Uncontrolled type 2 diabetes mellitus) Start:04-Nov-2019 Instruction Type:Patient Education Patient Instructions Indication:Diabetes mellitus type 2, uncontrolled (Renamed from Uncontrolled type 2 diabetes mellitus) Start:04-Nov-2019 Instruction Type:Provider Instructions for Treatment How to access health informa tion online Indication:Current smoker Start:23-Aug-2019 Instruction Type:Patient Education How to access health informa tion online - Detail Indication:BMI 34.0-34.9,adult Start:23-Aug-2019 Instruction Type:Patient Education Patient Instructions Indication:Current smoker Start:23-Aug-2019 Instruction Type:Provider Instructions for Treatment How to access health informa tion online Indication:Flu-like symptoms Start:15-Aug-2019 Instruction Type:Patient Education How to access health informa tion online - Detail Indication:Flu-like symptoms Start:15-Aug-2019 Instruction Type:Patient Education Patient Instructions Indication:Flu-like symptoms Start:15-Aug-2019 Instruction Type:Provider Instructions for Treatment How to access health informa tion online Indication:Nonsmoker Start:12-Jul-2019 Instruction Type:Patient Education How to access health informa tion online - Detail Indication:Nonsmoker Start:12-Jul-2019 Instruction Type:Patient Education Patient Instructions Indication:Nonsmoker Start:12-Jul-2019 Instruction Type:Provider Instructions for Treatment How to access health informa tion online Indication:Nonsmoker Start:05-Jul-2019 Instruction Type:Patient Education How to access health informa tion online - Detail Indication:Nonsmoker Start:05-Jul-2019 Instruction Type:Patient Education Patient Instructions Indication:Nonsmoker Start:05-Jul-2019 Instruction Type:Provider Instructions for Treatment How to access health informa tion online Indication:Nonsmoker Start:20-Jul-2018 Instruction Type:Patient Education How to access health informa tion online - Detail Indication:Nonsmoker Start:20-Jul-2018 Instruction Type:Patient Education Patient Instructions Indication:Nonsmoker Start:20-Jul-2018 Instruction Type:Provider Instructions for Treatment How to access health informa tion online Indication:Nonsmoker Start:23-Mar-2018 Instruction Type:Patient Education How to access health informa tion online - Detail Indication:Nonsmoker Start:23-Mar-2018 Instruction Type:Patient Education Patient Instructions Indication:Nonsmoker Start:23-Mar-2018 Instruction Type:Provider Instructions for Treatment How to access health informa tion online Indication:Diarrhea Start:04-Dec-2017 Instruction Type:Patient Education How to access health informa tion online - Detail Indication:Diarrhea Start:04-Dec-2017 Instruction Type:Patient Education Patient Instructions Indication:Diarrhea Start:04-Dec-2017 Instruction Type:Provider Instructions for Treatment How to access health informa tion online Indication:Diabetes mellitus type 2, uncontrolled (Renamed from Uncontrolled type 2 diabetes mellitus) Start:20-Nov-2017 Instruction Type:Patient Education How to access health informa tion online - Detail Indication:Diabetes mellitus type 2, uncontrolled (Renamed from Uncontrolled type 2 diabetes mellitus) Start:20-Nov-2017 Instruction Type:Patient Education Patient Instructions Indication:Diabetes mellitus type 2, uncontrolled (Renamed from Uncontrolled type 2 diabetes mellitus) Start:20-Nov-2017 Instruction Type:Provider Instructions for Treatment How to access health informa tion online Indication:Anxiety and depression Start:01-Sep-2017 Instruction Type:Patient Education How to access health informa tion online - Detail Indication:Anxiety and depression Start:01-Sep-2017 Instruction Type:Patient Education Patient Instructions Indication:Nonsmoker Start:01-Sep-2017 Instruction Type:Provider Instructions for Treatment Patient Instruction s Indication:Current smoker Start:11-Aug-2017 Instruction Type:Provider Instructions for Treatment How to access health informa tion online Indication:Current smoker Start:10-Aug-2017 Instruction Type:Patient Education How to access health informa tion online - Detail Indication:Current smoker Start:10-Aug-2017 Instruction Type:Patient Education Patient Instructions Indication:Post-nasal drainage Start:10-Aug-2017 Instruction Type:Provider Instructions for Treatment How to access health informa tion online Indication:Other abnormal glucose Start:14-May-2016 Instruction Type:Patient Education How to access health informa tion online - Detail Indication:Other abnormal glucose Start:14-May-2016 Instruction Type:Patient Education Patient Instructions Indication:Other abnormal glucose Start:14-May-2016 Instruction Type:Provider Instructions for Treatment How to access health informa tion online Indication:Other abnormal glucose Start:15-Jan-2016 Instruction Type:Patient Education How to access health informa tion online - Detail Indication:Other abnormal glucose Start:15-Jan-2016 Instruction Type:Patient Education Patient Instructions Indication:Other abnormal glucose Start:15-Jan-2016 Instruction Type:Provider Instructions for Treatment How to access health informa tion online Indication:Umbilical hernia Start:15-Oct-2015 Instruction Type:Patient Education How to access health informa tion online - Detail Indication:Umbilical hernia Start:15-Oct-2015 Instruction Type:Patient Education Patient Instructions Indication:Umbilical hernia Start:15-Oct-2015 Instruction Type:Provider Instructions for Treatment How to access health informa tion online Indication:Umbilical hernia Start:14-Sep-2015 Instruction Type:Patient Education How to access health informa tion online - Detail Indication:Umbilical hernia Start:14-Sep-2015 Instruction Type:Patient Education Patient Instructions Indication:Umbilical hernia Start:14-Sep-2015 Instruction Type:Provider Instructions for Treatment How to access health informa tion online Indication:Benign essential hypertension Start:16-Jul-2015 Instruction Type:Patient Education How to access health informa tion online - Detail Indication:Benign essential hypertension Start:16-Jul-2015 Instruction Type:Patient Education Patient Instructions Indication:Benign essential hypertension Start:16-Jul-2015 Instruction Type:Provider Instructions for Treatment How to access health informa tion online Indication:Syncope and collapse Start:04-Jun-2015 Instruction Type:Patient Education How to access health informa tion online - Detail Indication:Syncope and collapse Start:04-Jun-2015 Instruction Type:Patient Education Patient Instructions Indication:Syncope and collapse Start:04-Jun-2015 Instruction Type:Provider Instructions for Treatment Patient Instructions Indication:Knee Pain (Renamed from Gonalgia) Start:26-Mar-2015 Instruction Type:Provider Instructions for Treatment Patient Instructions Indication:Rash Start:21-Apr-2013 Instruction Type:Provider Instructions for Treatment Patient Instructions Indication:Anxiety and depression Start:15-Nov-2012 Instruction Type:Provider Instructions for Treatment Patient Instructions Indication:Benign essential hypertension Start:21-Oct-2012 Instruction Type:Provider Instructions for Treatment Patient Instructions Indication:Hypercholesterolemia Start:22-Jul-2012 Instruction Type:Provider Instructions for Treatment Sore throat: diagnosis and treatment Indication:Pharyngitis, acute Start:16-Dec-2006 Instruction Type:Patient Education [facility]; [facility] Work Phone: Instructions* Name Dates Details Patient Instructions Indication:Diabetes mellitus type 2, uncontrolled (Renamed from Uncontrolled type 2 diabetes mellitus) Start:09-Aug-2021 Instruction Type:Provider Instructions for Treatment How to Access Health Informa tion Online using Patient Portal and [employer]rd [employer] Apps Indication:Diabetes mellitus type 2, uncontrolled (Renamed from Uncontrolled type 2 diabetes mellitus) Start:09-Aug-2021 Instruction Type:Patient Education DISCONTINUED - CBC, PLATELET S & AUT DIFF ([id number]) Indication:Diabetes mellitus type 2, uncontrolled (Renamed from Uncontrolled type 2 diabetes mellitus) Start:10-May-2021 Instruction Type:Patient Education Patient Instructions Indication:Nonsmoker Start:10-May-2021 Instruction Type:Provider Instructions for Treatment How to Access Health Informa tion Online using Patient Portal and [employer]rd [employer] Apps Indication:Nonsmoker Start:10-May-2021 Instruction Type:Patient Education Patient Instructions Indication:BMI 35.0-35.9,adult Start:19-Sep-2020 Instruction Type:Provider Instructions for Treatment How to Access Health Informa tion Online using Patient Portal and [employer]rd [employer] Apps Indication:Diabetes mellitus type 2, uncontrolled (Renamed from Uncontrolled type 2 diabetes mellitus) Start:19-Sep-2020 Instruction Type:Patient Education Patient Instructions come in fasting in August a week before your next apt. Indication:BMI 34.0-34.9,adult Start:21-May-2020 Instruction Type:Provider Instructions for Treatment How to Access Health Informa tion Online using Patient Portal and [employer]rd [employer] Apps Indication:BMI 34.0-34.9,adult Start:21-May-2020 Instruction Type:Patient Education How to access health informa tion online - Detail Indication:BMI 34.0-34.9,adult Start:15-Feb-2020 Instruction Type:Patient Education Patient Instructions Indication:BMI 34.0-34.9,adult Start:15-Feb-2020 Instruction Type:Provider Instructions for Treatment How to access health informa tion online Indication:Diabetes mellitus type 2, uncontrolled (Renamed from Uncontrolled type 2 diabetes mellitus) Start:06-Feb-2020 Instruction Type:Patient Education How to access health informa tion online - Detail Indication:Diabetes mellitus type 2, uncontrolled (Renamed from Uncontrolled type 2 diabetes mellitus) Start:06-Feb-2020 Instruction Type:Patient Education Patient Instructions Indication:Diabetes mellitus type 2, uncontrolled (Renamed from Uncontrolled type 2 diabetes mellitus) Start:06-Feb-2020 Instruction Type:Provider Instructions for Treatment Patient Instructions Indication:BMI 34.0-34.9,adult Start:04-Nov-2019 Instruction Type:Provider Instructions for Treatment How to access health informa tion online Indication:Diabetes mellitus type 2, uncontrolled (Renamed from Uncontrolled type 2 diabetes mellitus) Start:04-Nov-2019 Instruction Type:Patient Education How to access health informa tion online - Detail Indication:Diabetes mellitus type 2, uncontrolled (Renamed from Uncontrolled type 2 diabetes mellitus) Start:04-Nov-2019 Instruction Type:Patient Education Patient Instructions Indication:Diabetes mellitus type 2, uncontrolled (Renamed from Uncontrolled type 2 diabetes mellitus) Start:04-Nov-2019 Instruction Type:Provider Instructions for Treatment How to access health informa tion online Indication:Current smoker Start:23-Aug-2019 Instruction Type:Patient Education How to access health informa tion online - Detail Indication:BMI 34.0-34.9,adult Start:23-Aug-2019 Instruction Type:Patient Education Patient Instructions Indication:Current smoker Start:23-Aug-2019 Instruction Type:Provider Instructions for Treatment How to access health informa tion online Indication:Flu-like symptoms Start:15-Aug-2019 Instruction Type:Patient Education How to access health informa tion online - Detail Indication:Flu-like symptoms Start:15-Aug-2019 Instruction Type:Patient Education Patient Instructions Indication:Flu-like symptoms Start:15-Aug-2019 Instruction Type:Provider Instructions for Treatment How to access health informa tion online Indication:Nonsmoker Start:12-Jul-2019 Instruction Type:Patient Education How to access health informa tion online - Detail Indication:Nonsmoker Start:12-Jul-2019 Instruction Type:Patient Education Patient Instructions Indication:Nonsmoker Start:12-Jul-2019 Instruction Type:Provider Instructions for Treatment How to access health informa tion online Indication:Nonsmoker Start:05-Jul-2019 Instruction Type:Patient Education How to access health informa tion online - Detail Indication:Nonsmoker Start:05-Jul-2019 Instruction Type:Patient Education Patient Instructions Indication:Nonsmoker Start:05-Jul-2019 Instruction Type:Provider Instructions for Treatment How to access health informa tion online Indication:Nonsmoker Start:20-Jul-2018 Instruction Type:Patient Education How to access health informa tion online - Detail Indication:Nonsmoker Start:20-Jul-2018 Instruction Type:Patient Education Patient Instructions Indication:Nonsmoker Start:20-Jul-2018 Instruction Type:Provider Instructions for Treatment How to access health informa tion online Indication:Nonsmoker Start:23-Mar-2018 Instruction Type:Patient Education How to access health informa tion online - Detail Indication:Nonsmoker Start:23-Mar-2018 Instruction Type:Patient Education Patient Instructions Indication:Nonsmoker Start:23-Mar-2018 Instruction Type:Provider Instructions for Treatment How to access health informa tion online Indication:Diarrhea Start:04-Dec-2017 Instruction Type:Patient Education How to access health informa tion online - Detail Indication:Diarrhea Start:04-Dec-2017 Instruction Type:Patient Education Patient Instructions Indication:Diarrhea Start:04-Dec-2017 Instruction Type:Provider Instructions for Treatment How to access health informa tion online Indication:Diabetes mellitus type 2, uncontrolled (Renamed from Uncontrolled type 2 diabetes mellitus) Start:20-Nov-2017 Instruction Type:Patient Education How to access health informa tion online - Detail Indication:Diabetes mellitus type 2, uncontrolled (Renamed from Uncontrolled type 2 diabetes mellitus) Start:20-Nov-2017 Instruction Type:Patient Education Patient Instructions Indication:Diabetes mellitus type 2, uncontrolled (Renamed from Uncontrolled type 2 diabetes mellitus) Start:20-Nov-2017 Instruction Type:Provider Instructions for Treatment How to access health informa tion online Indication:Anxiety and depression Start:01-Sep-2017 Instruction Type:Patient Education How to access health informa tion online - Detail Indication:Anxiety and depression Start:01-Sep-2017 Instruction Type:Patient Education Patient Instructions Indication:Nonsmoker Start:01-Sep-2017 Instruction Type:Provider Instructions for Treatment Patient Instruction s Indication:Current smoker Start:11-Aug-2017 Instruction Type:Provider Instructions for Treatment How to access health informa tion online Indication:Current smoker Start:10-Aug-2017 Instruction Type:Patient Education How to access health informa tion online - Detail Indication:Current smoker Start:10-Aug-2017 Instruction Type:Patient Education Patient Instructions Indication:Post-nasal drainage Start:10-Aug-2017 Instruction Type:Provider Instructions for Treatment How to access health informa tion online Indication:Other abnormal glucose Start:14-May-2016 Instruction Type:Patient Education How to access health informa tion online - Detail Indication:Other abnormal glucose Start:14-May-2016 Instruction Type:Patient Education Patient Instructions Indication:Other abnormal glucose Start:14-May-2016 Instruction Type:Provider Instructions for Treatment How to access health informa tion online Indication:Other abnormal glucose Start:15-Jan-2016 Instruction Type:Patient Education How to access health informa tion online - Detail Indication:Other abnormal glucose Start:15-Jan-2016 Instruction Type:Patient Education Patient Instructions Indication:Other abnormal glucose Start:15-Jan-2016 Instruction Type:Provider Instructions for Treatment How to access health informa tion online Indication:Umbilical hernia Start:15-Oct-2015 Instruction Type:Patient Education How to access health informa tion online - Detail Indication:Umbilical hernia Start:15-Oct-2015 Instruction Type:Patient Education Patient Instructions Indication:Umbilical hernia Start:15-Oct-2015 Instruction Type:Provider Instructions for Treatment How to access health informa tion online Indication:Umbilical hernia Start:14-Sep-2015 Instruction Type:Patient Education How to access health informa tion online - Detail Indication:Umbilical hernia Start:14-Sep-2015 Instruction Type:Patient Education Patient Instructions Indication:Umbilical hernia Start:14-Sep-2015 Instruction Type:Provider Instructions for Treatment How to access health informa tion online Indication:Benign essential hypertension Start:16-Jul-2015 Instruction Type:Patient Education How to access health informa tion online - Detail Indication:Benign essential hypertension Start:16-Jul-2015 Instruction Type:Patient Education Patient Instructions Indication:Benign essential hypertension Start:16-Jul-2015 Instruction Type:Provider Instructions for Treatment How to access health informa tion online Indication:Syncope and collapse Start:04-Jun-2015 Instruction Type:Patient Education How to access health informa tion online - Detail Indication:Syncope and collapse Start:04-Jun-2015 Instruction Type:Patient Education Patient Instructions Indication:Syncope and collapse Start:04-Jun-2015 Instruction Type:Provider Instructions for Treatment Patient Instructions Indication:Knee Pain (Renamed from Gonalgia) Start:26-Mar-2015 Instruction Type:Provider Instructions for Treatment Patient Instructions Indication:Rash Start:21-Apr-2013 Instruction Type:Provider Instructions for Treatment Patient Instructions Indication:Anxiety and depression Start:15-Nov-2012 Instruction Type:Provider Instructions for Treatment Patient Instructions Indication:Benign essential hypertension Start:21-Oct-2012 Instruction Type:Provider Instructions for Treatment Patient Instructions Indication:Hypercholesterolemia Start:22-Jul-2012 Instruction Type:Provider Instructions for Treatment Sore throat: diagnosis and treatment Indication:Pharyngitis, acute Start:16-Dec-2006 Instruction Type:Patient Education [facility]; [facility] Work Phone: Instructions* Name Dates Details Patient Instructions Indication:Diabetes mellitus type 2, uncontrolled (Renamed from Uncontrolled type 2 diabetes mellitus) Start:13-Nov-2021 Instruction Type:Provider Instructions for Treatment How to Access Health Informa tion Online using Patient Portal and [employer] Apps Indication:Diabetes mellitus type 2, uncontrolled (Renamed from Uncontrolled type 2 diabetes mellitus) Start:13-Nov-2021 Instruction Type:Patient Education Patient Instructions Indication:Diabetes mellitus type 2, uncontrolled (Renamed from Uncontrolled type 2 diabetes mellitus) Start:09-Aug-2021 Instruction Type:Provider Instructions for Treatment How to Access Health Informa tion Online using Patient Portal and [employer] Apps Indication:Diabetes mellitus type 2, uncontrolled (Renamed from Uncontrolled type 2 diabetes mellitus) Start:09-Aug-2021 Instruction Type:Patient Education DISCONTINUED - CBC, PLATELET S & AUT DIFF ([id number]) Indication:Diabetes mellitus type 2, uncontrolled (Renamed from Uncontrolled type 2 diabetes mellitus) Start:10-May-2021 Instruction Type:Patient Education Patient Instructions Indication:Nonsmoker Start:10-May-2021 Instruction Type:Provider Instructions for Treatment How to Access Health Informa tion Online using Patient Portal and [employer] Apps Indication:Nonsmoker Start:10-May-2021 Instruction Type:Patient Education Patient Instructions Indication:BMI 35.0-35.9,adult Start:19-Sep-2020 Instruction Type:Provider Instructions for Treatment How to Access Health Informa tion Online using Patient Portal and [employer] Apps Indication:Diabetes mellitus type 2, uncontrolled (Renamed from Uncontrolled type 2 diabetes mellitus) Start:19-Sep-2020 Instruction Type:Patient Education Patient Instructions come in fasting in August a week before your next apt. Indication:BMI 34.0-34.9,adult Start:21-May-2020 Instruction Type:Provider Instructions for Treatment How to Access Health Informa tion Online using Patient Portal and [employer]rd [employer] Apps Indication:BMI 34.0-34.9,adult Start:21-May-2020 Instruction Type:Patient Education How to access health informa tion online - Detail Indication:BMI 34.0-34.9,adult Start:15-Feb-2020 Instruction Type:Patient Education Patient Instructions Indication:BMI 34.0-34.9,adult Start:15-Feb-2020 Instruction Type:Provider Instructions for Treatment How to access health informa tion online Indication:Diabetes mellitus type 2, uncontrolled (Renamed from Uncontrolled type 2 diabetes mellitus) Start:06-Feb-2020 Instruction Type:Patient Education How to access health informa tion online - Detail Indication:Diabetes mellitus type 2, uncontrolled (Renamed from Uncontrolled type 2 diabetes mellitus) Start:06-Feb-2020 Instruction Type:Patient Education Patient Instructions Indication:Diabetes mellitus type 2, uncontrolled (Renamed from Uncontrolled type 2 diabetes mellitus) Start:06-Feb-2020 Instruction Type:Provider Instructions for Treatment Patient Instructions Indication:BMI 34.0-34.9,adult Start:04-Nov-2019 Instruction Type:Provider Instructions for Treatment How to access health informa tion online Indication:Diabetes mellitus type 2, uncontrolled (Renamed from Uncontrolled type 2 diabetes mellitus) Start:04-Nov-2019 Instruction Type:Patient Education How to access health informa tion online - Detail Indication:Diabetes mellitus type 2, uncontrolled (Renamed from Uncontrolled type 2 diabetes mellitus) Start:04-Nov-2019 Instruction Type:Patient Education Patient Instructions Indication:Diabetes mellitus type 2, uncontrolled (Renamed from Uncontrolled type 2 diabetes mellitus) Start:04-Nov-2019 Instruction Type:Provider Instructions for Treatment How to access health informa tion online Indication:Current smoker Start:23-Aug-2019 Instruction Type:Patient Education How to access health informa tion online - Detail Indication:BMI 34.0-34.9,adult Start:23-Aug-2019 Instruction Type:Patient Education Patient Instructions Indication:Current smoker Start:23-Aug-2019 Instruction Type:Provider Instructions for Treatment How to access health informa tion online Indication:Flu-like symptoms Start:15-Aug-2019 Instruction Type:Patient Education How to access health informa tion online - Detail Indication:Flu-like symptoms Start:15-Aug-2019 Instruction Type:Patient Education Patient Instructions Indication:Flu-like symptoms Start:15-Aug-2019 Instruction Type:Provider Instructions for Treatment How to access health informa tion online Indication:Nonsmoker Start:12-Jul-2019 Instruction Type:Patient Education How to access health informa tion online - Detail Indication:Nonsmoker Start:12-Jul-2019 Instruction Type:Patient Education Patient Instructions Indication:Nonsmoker Start:12-Jul-2019 Instruction Type:Provider Instructions for Treatment How to access health informa tion online Indication:Nonsmoker Start:05-Jul-2019 Instruction Type:Patient Education How to access health informa tion online - Detail Indication:Nonsmoker Start:05-Jul-2019 Instruction Type:Patient Education Patient Instructions Indication:Nonsmoker Start:05-Jul-2019 Instruction Type:Provider Instructions for Treatment How to access health informa tion online Indication:Nonsmoker Start:20-Jul-2018 Instruction Type:Patient Education How to access health informa tion online - Detail Indication:Nonsmoker Start:20-Jul-2018 Instruction Type:Patient Education Patient Instructions Indication:Nonsmoker Start:20-Jul-2018 Instruction Type:Provider Instructions for Treatment How to access health informa tion online Indication:Nonsmoker Start:23-Mar-2018 Instruction Type:Patient Education How to access health informa tion online - Detail Indication:Nonsmoker Start:23-Mar-2018 Instruction Type:Patient Education Patient Instructions Indication:Nonsmoker Start:23-Mar-2018 Instruction Type:Provider Instructions for Treatment How to access health informa tion online Indication:Diarrhea Start:04-Dec-2017 Instruction Type:Patient Education How to access health informa tion online - Detail Indication:Diarrhea Start:04-Dec-2017 Instruction Type:Patient Education Patient Instructions Indication:Diarrhea Start:04-Dec-2017 Instruction Type:Provider Instructions for Treatment How to access health informa tion online Indication:Diabetes mellitus type 2, uncontrolled (Renamed from Uncontrolled type 2 diabetes mellitus) Start:20-Nov-2017 Instruction Type:Patient Education How to access health informa tion online - Detail Indication:Diabetes mellitus type 2, uncontrolled (Renamed from Uncontrolled type 2 diabetes mellitus) Start:20-Nov-2017 Instruction Type:Patient Education Patient Instructions Indication:Diabetes mellitus type 2, uncontrolled (Renamed from Uncontrolled type 2 diabetes mellitus) Start:20-Nov-2017 Instruction Type:Provider Instructions for Treatment How to access health informa tion online Indication:Anxiety and depression Start:01-Sep-2017 Instruction Type:Patient Education How to access health informa tion online - Detail Indication:Anxiety and depression Start:01-Sep-2017 Instruction Type:Patient Education Patient Instructions Indication:Nonsmoker Start:01-Sep-2017 Instruction Type:Provider Instructions for Treatment Patient Instruction s Indication:Current smoker Start:11-Aug-2017 Instruction Type:Provider Instructions for Treatment How to access health informa tion online Indication:Current smoker Start:10-Aug-2017 Instruction Type:Patient Education How to access health informa tion online - Detail Indication:Current smoker Start:10-Aug-2017 Instruction Type:Patient Education Patient Instructions Indication:Post-nasal drainage Start:10-Aug-2017 Instruction Type:Provider Instructions for Treatment How to access health informa tion online Indication:Other abnormal glucose Start:14-May-2016 Instruction Type:Patient Education How to access health informa tion online - Detail Indication:Other abnormal glucose Start:14-May-2016 Instruction Type:Patient Education Patient Instructions Indication:Other abnormal glucose Start:14-May-2016 Instruction Type:Provider Instructions for Treatment How to access health informa tion online Indication:Other abnormal glucose Start:15-Jan-2016 Instruction Type:Patient Education How to access health informa tion online - Detail Indication:Other abnormal glucose Start:15-Jan-2016 Instruction Type:Patient Education Patient Instructions Indication:Other abnormal glucose Start:15-Jan-2016 Instruction Type:Provider Instructions for Treatment How to access health informa tion online Indication:Umbilical hernia Start:15-Oct-2015 Instruction Type:Patient Education How to access health informa tion online - Detail Indication:Umbilical hernia Start:15-Oct-2015 Instruction Type:Patient Education Patient Instructions Indication:Umbilical hernia Start:15-Oct-2015 Instruction Type:Provider Instructions for Treatment How to access health informa tion online Indication:Umbilical hernia Start:14-Sep-2015 Instruction Type:Patient Education How to access health informa tion online - Detail Indication:Umbilical hernia Start:14-Sep-2015 Instruction Type:Patient Education Patient Instructions Indication:Umbilical hernia Start:14-Sep-2015 Instruction Type:Provider Instructions for Treatment How to access health informa tion online Indication:Benign essential hypertension Start:16-Jul-2015 Instruction Type:Patient Education How to access health informa tion online - Detail Indication:Benign essential hypertension Start:16-Jul-2015 Instruction Type:Patient Education Patient Instructions Indication:Benign essential hypertension Start:16-Jul-2015 Instruction Type:Provider Instructions for Treatment How to access health informa tion online Indication:Syncope and collapse Start:04-Jun-2015 Instruction Type:Patient Education How to access health informa tion online - Detail Indication:Syncope and collapse Start:04-Jun-2015 Instruction Type:Patient Education Patient Instructions Indication:Syncope and collapse Start:04-Jun-2015 Instruction Type:Provider Instructions for Treatment Patient Instructions Indication:Knee Pain (Renamed from Gonalgia) Start:26-Mar-2015 Instruction Type:Provider Instructions for Treatment Patient Instructions Indication:Rash Start:21-Apr-2013 Instruction Type:Provider Instructions for Treatment Patient Instructions Indication:Anxiety and depression Start:15-Nov-2012 Instruction Type:Provider Instructions for Treatment Patient Instructions Indication:Benign essential hypertension Start:21-Oct-2012 Instruction Type:Provider Instructions for Treatment Patient Instructions Indication:Hypercholesterolemia Start:22-Jul-2012 Instruction Type:Provider Instructions for Treatment Sore throat: diagnosis and treatment Indication:Pharyngitis, acute Start:16-Dec-2006 Instruction Type:Patient Education [facility]; [facility] Work Phone: Instructions* Name Dates Details Patient Instructions Indication:Diabetes mellitus type 2, uncontrolled (Renamed from Uncontrolled type 2 diabetes mellitus) Start:13-Nov-2021 Instruction Type:Provider Instructions for Treatment How to Access Health Informa tion Online using Patient Portal and [employer] Apps Indication:Diabetes mellitus type 2, uncontrolled (Renamed from Uncontrolled type 2 diabetes mellitus) Start:13-Nov-2021 Instruction Type:Patient Education Patient Instructions Indication:Diabetes mellitus type 2, uncontrolled (Renamed from Uncontrolled type 2 diabetes mellitus) Start:09-Aug-2021 Instruction Type:Provider Instructions for Treatment How to Access Health Informa tion Online using Patient Portal and [employer] Apps Indication:Diabetes mellitus type 2, uncontrolled (Renamed from Uncontrolled type 2 diabetes mellitus) Start:09-Aug-2021 Instruction Type:Patient Education DISCONTINUED - CBC, PLATELET S & AUT DIFF ([id number]) Indication:Diabetes mellitus type 2, uncontrolled (Renamed from Uncontrolled type 2 diabetes mellitus) Start:10-May-2021 Instruction Type:Patient Education Patient Instructions Indication:Nonsmoker Start:10-May-2021 Instruction Type:Provider Instructions for Treatment How to Access Health Informa tion Online using Patient Portal and [employer] Apps Indication:Nonsmoker Start:10-May-2021 Instruction Type:Patient Education Patient Instructions Indication:BMI 35.0-35.9,adult Start:19-Sep-2020 Instruction Type:Provider Instructions for Treatment How to Access Health Informa tion Online using Patient Portal and [employer] Apps Indication:Diabetes mellitus type 2, uncontrolled (Renamed from Uncontrolled type 2 diabetes mellitus) Start:19-Sep-2020 Instruction Type:Patient Education Patient Instructions come in fasting in August a week before your next apt. Indication:BMI 34.0-34.9,adult Start:21-May-2020 Instruction Type:Provider Instructions for Treatment How to Access Health Informa tion Online using Patient Portal and [employer] Apps Indication:BMI 34.0-34.9,adult Start:21-May-2020 Instruction Type:Patient Education How to access health informa tion online - Detail Indication:BMI 34.0-34.9,adult Start:15-Feb-2020 Instruction Type:Patient Education Patient Instructions Indication:BMI 34.0-34.9,adult Start:15-Feb-2020 Instruction Type:Provider Instructions for Treatment How to access health informa tion online Indication:Diabetes mellitus type 2, uncontrolled (Renamed from Uncontrolled type 2 diabetes mellitus) Start:06-Feb-2020 Instruction Type:Patient Education How to access health informa tion online - Detail Indication:Diabetes mellitus type 2, uncontrolled (Renamed from Uncontrolled type 2 diabetes mellitus) Start:06-Feb-2020 Instruction Type:Patient Education Patient Instructions Indication:Diabetes mellitus type 2, uncontrolled (Renamed from Uncontrolled type 2 diabetes mellitus) Start:06-Feb-2020 Instruction Type:Provider Instructions for Treatment Patient Instructions Indication:BMI 34.0-34.9,adult Start:04-Nov-2019 Instruction Type:Provider Instructions for Treatment How to access health informa tion online Indication:Diabetes mellitus type 2, uncontrolled (Renamed from Uncontrolled type 2 diabetes mellitus) Start:04-Nov-2019 Instruction Type:Patient Education How to access health informa tion online - Detail Indication:Diabetes mellitus type 2, uncontrolled (Renamed from Uncontrolled type 2 diabetes mellitus) Start:04-Nov-2019 Instruction Type:Patient Education Patient Instructions Indication:Diabetes mellitus type 2, uncontrolled (Renamed from Uncontrolled type 2 diabetes mellitus) Start:04-Nov-2019 Instruction Type:Provider Instructions for Treatment How to access health informa tion online Indication:Current smoker Start:23-Aug-2019 Instruction Type:Patient Education How to access health informa tion online - Detail Indication:BMI 34.0-34.9,adult Start:23-Aug-2019 Instruction Type:Patient Education Patient Instructions Indication:Current smoker Start:23-Aug-2019 Instruction Type:Provider Instructions for Treatment How to access health informa tion online Indication:Flu-like symptoms Start:15-Aug-2019 Instruction Type:Patient Education How to access health informa tion online - Detail Indication:Flu-like symptoms Start:15-Aug-2019 Instruction Type:Patient Education Patient Instructions Indication:Flu-like symptoms Start:15-Aug-2019 Instruction Type:Provider Instructions for Treatment How to access health informa tion online Indication:Nonsmoker Start:12-Jul-2019 Instruction Type:Patient Education How to access health informa tion online - Detail Indication:Nonsmoker Start:12-Jul-2019 Instruction Type:Patient Education Patient Instructions Indication:Nonsmoker Start:12-Jul-2019 Instruction Type:Provider Instructions for Treatment How to access health informa tion online Indication:Nonsmoker Start:05-Jul-2019 Instruction Type:Patient Education How to access health informa tion online - Detail Indication:Nonsmoker Start:05-Jul-2019 Instruction Type:Patient Education Patient Instructions Indication:Nonsmoker Start:05-Jul-2019 Instruction Type:Provider Instructions for Treatment How to access health informa tion online Indication:Nonsmoker Start:20-Jul-2018 Instruction Type:Patient Education How to access health informa tion online - Detail Indication:Nonsmoker Start:20-Jul-2018 Instruction Type:Patient Education Patient Instructions Indication:Nonsmoker Start:20-Jul-2018 Instruction Type:Provider Instructions for Treatment How to access health informa tion online Indication:Nonsmoker Start:23-Mar-2018 Instruction Type:Patient Education How to access health informa tion online - Detail Indication:Nonsmoker Start:23-Mar-2018 Instruction Type:Patient Education Patient Instructions Indication:Nonsmoker Start:23-Mar-2018 Instruction Type:Provider Instructions for Treatment How to access health informa tion online Indication:Diarrhea Start:04-Dec-2017 Instruction Type:Patient Education How to access health informa tion online - Detail Indication:Diarrhea Start:04-Dec-2017 Instruction Type:Patient Education Patient Instructions Indication:Diarrhea Start:04-Dec-2017 Instruction Type:Provider Instructions for Treatment How to access health informa tion online Indication:Diabetes mellitus type 2, uncontrolled (Renamed from Uncontrolled type 2 diabetes mellitus) Start:20-Nov-2017 Instruction Type:Patient Education How to access health informa tion online - Detail Indication:Diabetes mellitus type 2, uncontrolled (Renamed from Uncontrolled type 2 diabetes mellitus) Start:20-Nov-2017 Instruction Type:Patient Education Patient Instructions Indication:Diabetes mellitus type 2, uncontrolled (Renamed from Uncontrolled type 2 diabetes mellitus) Start:20-Nov-2017 Instruction Type:Provider Instructions for Treatment How to access health informa tion online Indication:Anxiety and depression Start:01-Sep-2017 Instruction Type:Patient Education How to access health informa tion online - Detail Indication:Anxiety and depression Start:01-Sep-2017 Instruction Type:Patient Education Patient Instructions Indication:Nonsmoker Start:01-Sep-2017 Instruction Type:Provider Instructions for Treatment Patient Instruction s Indication:Current smoker Start:11-Aug-2017 Instruction Type:Provider Instructions for Treatment How to access health informa tion online Indication:Current smoker Start:10-Aug-2017 Instruction Type:Patient Education How to access health informa tion online - Detail Indication:Current smoker Start:10-Aug-2017 Instruction Type:Patient Education Patient Instructions Indication:Post-nasal drainage Start:10-Aug-2017 Instruction Type:Provider Instructions for Treatment How to access health informa tion online Indication:Other abnormal glucose Start:14-May-2016 Instruction Type:Patient Education How to access health informa tion online - Detail Indication:Other abnormal glucose Start:14-May-2016 Instruction Type:Patient Education Patient Instructions Indication:Other abnormal glucose Start:14-May-2016 Instruction Type:Provider Instructions for Treatment How to access health informa tion online Indication:Other abnormal glucose Start:15-Jan-2016 Instruction Type:Patient Education How to access health informa tion online - Detail Indication:Other abnormal glucose Start:15-Jan-2016 Instruction Type:Patient Education Patient Instructions Indication:Other abnormal glucose Start:15-Jan-2016 Instruction Type:Provider Instructions for Treatment How to access health informa tion online Indication:Umbilical hernia Start:15-Oct-2015 Instruction Type:Patient Education How to access health informa tion online - Detail Indication:Umbilical hernia Start:15-Oct-2015 Instruction Type:Patient Education Patient Instructions Indication:Umbilical hernia Start:15-Oct-2015 Instruction Type:Provider Instructions for Treatment How to access health informa tion online Indication:Umbilical hernia Start:14-Sep-2015 Instruction Type:Patient Education How to access health informa tion online - Detail Indication:Umbilical hernia Start:14-Sep-2015 Instruction Type:Patient Education Patient Instructions Indication:Umbilical hernia Start:14-Sep-2015 Instruction Type:Provider Instructions for Treatment How to access health informa tion online Indication:Benign essential hypertension Start:16-Jul-2015 Instruction Type:Patient Education How to access health informa tion online - Detail Indication:Benign essential hypertension Start:16-Jul-2015 Instruction Type:Patient Education Patient Instructions Indication:Benign essential hypertension Start:16-Jul-2015 Instruction Type:Provider Instructions for Treatment How to access health informa tion online Indication:Syncope and collapse Start:04-Jun-2015 Instruction Type:Patient Education How to access health informa tion online - Detail Indication:Syncope and collapse Start:04-Jun-2015 Instruction Type:Patient Education Patient Instructions Indication:Syncope and collapse Start:04-Jun-2015 Instruction Type:Provider Instructions for Treatment Patient Instructions Indication:Knee Pain (Renamed from Gonalgia) Start:26-Mar-2015 Instruction Type:Provider Instructions for Treatment Patient Instructions Indication:Rash Start:21-Apr-2013 Instruction Type:Provider Instructions for Treatment Patient Instructions Indication:Anxiety and depression Start:15-Nov-2012 Instruction Type:Provider Instructions for Treatment Patient Instructions Indication:Benign essential hypertension Start:21-Oct-2012 Instruction Type:Provider Instructions for Treatment Patient Instructions Indication:Hypercholesterolemia Start:22-Jul-2012 Instruction Type:Provider Instructions for Treatment Sore throat: diagnosis and treatment Indication:Pharyngitis, acute Start:16-Dec-2006 Instruction Type:Patient Education [facility]; [facility] Work Phone: Instructions* Name Dates Details Smoking Cessation Indication:Current every day smoker Start:14-Feb-2022 Instruction Type:Patient Education How to Access Health Informa tion Online using Patient Portal and [employer]rd [employer] Apps Indication:Uncontrolled type 2 diabetes mellitus with hyperglycemia Start:14-Feb-2022 Instruction Type:Patient Education Patient Instructions Indication:Uncontrolled type 2 diabetes mellitus with hyperglycemia Start:14-Feb-2022 Instruction Type:Provider Instructions for Treatment Patient Instructions Indication:Diabetes mellitus type 2, uncontrolled (Renamed from Uncontrolled type 2 diabetes mellitus) Start:13-Nov-2021 Instruction Type:Provider Instructions for Treatment How to Access Health Informa tion Online using Patient Portal and [employer]rd [employer] Apps Indication:Diabetes mellitus type 2, uncontrolled (Renamed from Uncontrolled type 2 diabetes mellitus) Start:13-Nov-2021 Instruction Type:Patient Education Patient Instructions Indication:Diabetes mellitus type 2, uncontrolled (Renamed from Uncontrolled type 2 diabetes mellitus) Start:09-Aug-2021 Instruction Type:Provider Instructions for Treatment How to Access Health Informa tion Online using Patient Portal and [employer]rd [employer] Apps Indication:Diabetes mellitus type 2, uncontrolled (Renamed from Uncontrolled type 2 diabetes mellitus) Start:09-Aug-2021 Instruction Type:Patient Education DISCONTINUED - CBC, PLATELET S & AUT DIFF (36414) Indication:Diabetes mellitus type 2, uncontrolled (Renamed from Uncontrolled type 2 diabetes mellitus) Start:10-May-2021 Instruction Type:Patient Education Patient Instructions Indication:Nonsmoker Start:10-May-2021 Instruction Type:Provider Instructions for Treatment How to Access Health Informa tion Online using Patient Portal and [employer]rd [employer] Apps Indication:Nonsmoker Start:10-May-2021 Instruction Type:Patient Education Patient Instructions Indication:BMI 35.0-35.9,adult Start:19-Sep-2020 Instruction Type:Provider Instructions for Treatment How to Access Health Informa tion Online using Patient Portal and [employer]rd [employer] Apps Indication:Diabetes mellitus type 2, uncontrolled (Renamed from Uncontrolled type 2 diabetes mellitus) Start:19-Sep-2020 Instruction Type:Patient Education Patient Instructions come in fasting in August a week before your next apt. Indication:BMI 34.0-34.9,adult Start:21-May-2020 Instruction Type:Provider Instructions for Treatment How to Access Health Informa tion Online using Patient Portal and [employer]rd [employer] Apps Indication:BMI 34.0-34.9,adult Start:21-May-2020 Instruction Type:Patient Education How to access health informa tion online - Detail Indication:BMI 34.0-34.9,adult Start:15-Feb-2020 Instruction Type:Patient Education Patient Instructions Indication:BMI 34.0-34.9,adult Start:15-Feb-2020 Instruction Type:Provider Instructions for Treatment How to access health informa tion online Indication:Diabetes mellitus type 2, uncontrolled (Renamed from Uncontrolled type 2 diabetes mellitus) Start:06-Feb-2020 Instruction Type:Patient Education How to access health informa tion online - Detail Indication:Diabetes mellitus type 2, uncontrolled (Renamed from Uncontrolled type 2 diabetes mellitus) Start:06-Feb-2020 Instruction Type:Patient Education Patient Instructions Indication:Diabetes mellitus type 2, uncontrolled (Renamed from Uncontrolled type 2 diabetes mellitus) Start:06-Feb-2020 Instruction Type:Provider Instructions for Treatment Patient Instructions Indication:BMI 34.0-34.9,adult Start:04-Nov-2019 Instruction Type:Provider Instructions for Treatment How to access health informa tion online Indication:Diabetes mellitus type 2, uncontrolled (Renamed from Uncontrolled type 2 diabetes mellitus) Start:04-Nov-2019 Instruction Type:Patient Education How to access health informa tion online - Detail Indication:Diabetes mellitus type 2, uncontrolled (Renamed from Uncontrolled type 2 diabetes mellitus) Start:04-Nov-2019 Instruction Type:Patient Education Patient Instructions Indication:Diabetes mellitus type 2, uncontrolled (Renamed from Uncontrolled type 2 diabetes mellitus) Start:04-Nov-2019 Instruction Type:Provider Instructions for Treatment How to access health informa tion online Indication:Current smoker Start:23-Aug-2019 Instruction Type:Patient Education How to access health informa tion online - Detail Indication:BMI 34.0-34.9,adult Start:23-Aug-2019 Instruction Type:Patient Education Patient Instructions Indication:Current smoker Start:23-Aug-2019 Instruction Type:Provider Instructions for Treatment How to access health informa tion online Indication:Flu-like symptoms Start:15-Aug-2019 Instruction Type:Patient Education How to access health informa tion online - Detail Indication:Flu-like symptoms Start:15-Aug-2019 Instruction Type:Patient Education Patient Instructions Indication:Flu-like symptoms Start:15-Aug-2019 Instruction Type:Provider Instructions for Treatment How to access health informa tion online Indication:Nonsmoker Start:12-Jul-2019 Instruction Type:Patient Education How to access health informa tion online - Detail Indication:Nonsmoker Start:12-Jul-2019 Instruction Type:Patient Education Patient Instructions Indication:Nonsmoker Start:12-Jul-2019 Instruction Type:Provider Instructions for Treatment How to access health informa tion online Indication:Nonsmoker Start:05-Jul-2019 Instruction Type:Patient Education How to access health informa tion online - Detail Indication:Nonsmoker Start:05-Jul-2019 Instruction Type:Patient Education Patient Instructions Indication:Nonsmoker Start:05-Jul-2019 Instruction Type:Provider Instructions for Treatment How to access health informa tion online Indication:Nonsmoker Start:20-Jul-2018 Instruction Type:Patient Education How to access health informa tion online - Detail Indication:Nonsmoker Start:20-Jul-2018 Instruction Type:Patient Education Patient Instructions Indication:Nonsmoker Start:20-Jul-2018 Instruction Type:Provider Instructions for Treatment How to access health informa tion online Indication:Nonsmoker Start:23-Mar-2018 Instruction Type:Patient Education How to access health informa tion online - Detail Indication:Nonsmoker Start:23-Mar-2018 Instruction Type:Patient Education Patient Instructions Indication:Nonsmoker Start:23-Mar-2018 Instruction Type:Provider Instructions for Treatment How to access health informa tion online Indication:Diarrhea Start:04-Dec-2017 Instruction Type:Patient Education How to access health informa tion online - Detail Indication:Diarrhea Start:04-Dec-2017 Instruction Type:Patient Education Patient Instructions Indication:Diarrhea Start:04-Dec-2017 Instruction Type:Provider Instructions for Treatment How to access health informa tion online Indication:Diabetes mellitus type 2, uncontrolled (Renamed from Uncontrolled type 2 diabetes mellitus) Start:20-Nov-2017 Instruction Type:Patient Education How to access health informa tion online - Detail Indication:Diabetes mellitus type 2, uncontrolled (Renamed from Uncontrolled type 2 diabetes mellitus) Start:20-Nov-2017 Instruction Type:Patient Education Patient Instructions Indication:Diabetes mellitus type 2, uncontrolled (Renamed from Uncontrolled type 2 diabetes mellitus) Start:20-Nov-2017 Instruction Type:Provider Instructions for Treatment How to access health informa tion online Indication:Anxiety and depression Start:01-Sep-2017 Instruction Type:Patient Education How to access health informa tion online - Detail Indication:Anxiety and depression Start:01-Sep-2017 Instruction Type:Patient Education Patient Instructions Indication:Nonsmoker Start:01-Sep-2017 Instruction Type:Provider Instructions for Treatment Patient Instruction s Indication:Current smoker Start:11-Aug-2017 Instruction Type:Provider Instructions for Treatment How to access health informa tion online Indication:Current smoker Start:10-Aug-2017 Instruction Type:Patient Education How to access health informa tion online - Detail Indication:Current smoker Start:10-Aug-2017 Instruction Type:Patient Education Patient Instructions Indication:Post-nasal drainage Start:10-Aug-2017 Instruction Type:Provider Instructions for Treatment How to access health informa tion online Indication:Other abnormal glucose Start:14-May-2016 Instruction Type:Patient Education How to access health informa tion online - Detail Indication:Other abnormal glucose Start:14-May-2016 Instruction Type:Patient Education Patient Instructions Indication:Other abnormal glucose Start:14-May-2016 Instruction Type:Provider Instructions for Treatment How to access health informa tion online Indication:Other abnormal glucose Start:15-Jan-2016 Instruction Type:Patient Education How to access health informa tion online - Detail Indication:Other abnormal glucose Start:15-Jan-2016 Instruction Type:Patient Education Patient Instructions Indication:Other abnormal glucose Start:15-Jan-2016 Instruction Type:Provider Instructions for Treatment How to access health informa tion online Indication:Umbilical hernia Start:15-Oct-2015 Instruction Type:Patient Education How to access health informa tion online - Detail Indication:Umbilical hernia Start:15-Oct-2015 Instruction Type:Patient Education Patient Instructions Indication:Umbilical hernia Start:15-Oct-2015 Instruction Type:Provider Instructions for Treatment How to access health informa tion online Indication:Umbilical hernia Start:14-Sep-2015 Instruction Type:Patient Education How to access health informa tion online - Detail Indication:Umbilical hernia Start:14-Sep-2015 Instruction Type:Patient Education Patient Instructions Indication:Umbilical hernia Start:14-Sep-2015 Instruction Type:Provider Instructions for Treatment How to access health informa tion online Indication:Benign essential hypertension Start:16-Jul-2015 Instruction Type:Patient Education How to access health informa tion online - Detail Indication:Benign essential hypertension Start:16-Jul-2015 Instruction Type:Patient Education Patient Instructions Indication:Benign essential hypertension Start:16-Jul-2015 Instruction Type:Provider Instructions for Treatment How to access health informa tion online Indication:Syncope and collapse Start:04-Jun-2015 Instruction Type:Patient Education How to access health informa tion online - Detail Indication:Syncope and collapse Start:04-Jun-2015 Instruction Type:Patient Education Patient Instructions Indication:Syncope and collapse Start:04-Jun-2015 Instruction Type:Provider Instructions for Treatment Patient Instructions Indication:Knee Pain (Renamed from Gonalgia) Start:26-Mar-2015 Instruction Type:Provider Instructions for Treatment Patient Instructions Indication:Rash Start:21-Apr-2013 Instruction Type:Provider Instructions for Treatment Patient Instructions Indication:Anxiety and depression Start:15-Nov-2012 Instruction Type:Provider Instructions for Treatment Patient Instructions Indication:Benign essential hypertension Start:21-Oct-2012 Instruction Type:Provider Instructions for Treatment Patient Instructions Indication:Hypercholesterolemia Start:22-Jul-2012 Instruction Type:Provider Instructions for Treatment Sore throat: diagnosis and treatment Indication:Pharyngitis, acute Start:16-Dec-2006 Instruction Type:Patient Education [facility]; [facility] Work Phone: Instructions* Name Dates Details Patient Instructions Indication:BMI 36.0-36.9,adult Start:16-May-2022 Instruction Type:Provider Instructions for Treatment How to Access Health Informa tion Online using Patient Portal and [employer] Apps Indication:BMI 36.0-36.9,adult Start:16-May-2022 Instruction Type:Patient Education Smoking Cessation Indication:Current every day smoker Start:14-Feb-2022 Instruction Type:Patient Education How to Access Health Informa tion Online using Patient Portal and [employer] Apps Indication:Uncontrolled type 2 diabetes mellitus with hyperglycemia Start:14-Feb-2022 Instruction Type:Patient Education Patient Instructions Indication:Uncontrolled type 2 diabetes mellitus with hyperglycemia Start:14-Feb-2022 Instruction Type:Provider Instructions for Treatment Patient Instructions Indication:Diabetes mellitus type 2, uncontrolled (Renamed from Uncontrolled type 2 diabetes mellitus) Start:13-Nov-2021 Instruction Type:Provider Instructions for Treatment How to Access Health Informa tion Online using Patient Portal and [employer] Apps Indication:Diabetes mellitus type 2, uncontrolled (Renamed from Uncontrolled type 2 diabetes mellitus) Start:13-Nov-2021 Instruction Type:Patient Education Patient Instructions Indication:Diabetes mellitus type 2, uncontrolled (Renamed from Uncontrolled type 2 diabetes mellitus) Start:09-Aug-2021 Instruction Type:Provider Instructions for Treatment How to Access Health Informa tion Online using Patient Portal and [employer]rd [employer] Apps Indication:Diabetes mellitus type 2, uncontrolled (Renamed from Uncontrolled type 2 diabetes mellitus) Start:09-Aug-2021 Instruction Type:Patient Education DISCONTINUED - CBC, PLATELET S & AUT DIFF (01190) Indication:Diabetes mellitus type 2, uncontrolled (Renamed from Uncontrolled type 2 diabetes mellitus) Start:10-May-2021 Instruction Type:Patient Education Patient Instructions Indication:Nonsmoker Start:10-May-2021 Instruction Type:Provider Instructions for Treatment How to Access Health Informa tion Online using Patient Portal and [employer]rd [employer] Apps Indication:Nonsmoker Start:10-May-2021 Instruction Type:Patient Education Patient Instructions Indication:BMI 35.0-35.9,adult Start:19-Sep-2020 Instruction Type:Provider Instructions for Treatment How to Access Health Informa tion Online using Patient Portal and [employer]rd [employer] Apps Indication:Diabetes mellitus type 2, uncontrolled (Renamed from Uncontrolled type 2 diabetes mellitus) Start:19-Sep-2020 Instruction Type:Patient Education Patient Instructions come in fasting in August a week before your next apt. Indication:BMI 34.0-34.9,adult Start:21-May-2020 Instruction Type:Provider Instructions for Treatment How to Access Health Informa tion Online using Patient Portal and [employer]rd [employer] Apps Indication:BMI 34.0-34.9,adult Start:21-May-2020 Instruction Type:Patient Education How to access health informa tion online - Detail Indication:BMI 34.0-34.9,adult Start:15-Feb-2020 Instruction Type:Patient Education Patient Instructions Indication:BMI 34.0-34.9,adult Start:15-Feb-2020 Instruction Type:Provider Instructions for Treatment How to access health informa tion online Indication:Diabetes mellitus type 2, uncontrolled (Renamed from Uncontrolled type 2 diabetes mellitus) Start:06-Feb-2020 Instruction Type:Patient Education How to access health informa tion online - Detail Indication:Diabetes mellitus type 2, uncontrolled (Renamed from Uncontrolled type 2 diabetes mellitus) Start:06-Feb-2020 Instruction Type:Patient Education Patient Instructions Indication:Diabetes mellitus type 2, uncontrolled (Renamed from Uncontrolled type 2 diabetes mellitus) Start:06-Feb-2020 Instruction Type:Provider Instructions for Treatment Patient Instructions Indication:BMI 34.0-34.9,adult Start:04-Nov-2019 Instruction Type:Provider Instructions for Treatment How to access health informa tion online Indication:Diabetes mellitus type 2, uncontrolled (Renamed from Uncontrolled type 2 diabetes mellitus) Start:04-Nov-2019 Instruction Type:Patient Education How to access health informa tion online - Detail Indication:Diabetes mellitus type 2, uncontrolled (Renamed from Uncontrolled type 2 diabetes mellitus) Start:04-Nov-2019 Instruction Type:Patient Education Patient Instructions Indication:Diabetes mellitus type 2, uncontrolled (Renamed from Uncontrolled type 2 diabetes mellitus) Start:04-Nov-2019 Instruction Type:Provider Instructions for Treatment How to access health informa tion online Indication:Current smoker Start:23-Aug-2019 Instruction Type:Patient Education How to access health informa tion online - Detail Indication:BMI 34.0-34.9,adult Start:23-Aug-2019 Instruction Type:Patient Education Patient Instructions Indication:Current smoker Start:23-Aug-2019 Instruction Type:Provider Instructions for Treatment How to access health informa tion online Indication:Flu-like symptoms Start:15-Aug-2019 Instruction Type:Patient Education How to access health informa tion online - Detail Indication:Flu-like symptoms Start:15-Aug-2019 Instruction Type:Patient Education Patient Instructions Indication:Flu-like symptoms Start:15-Aug-2019 Instruction Type:Provider Instructions for Treatment How to access health informa tion online Indication:Nonsmoker Start:12-Jul-2019 Instruction Type:Patient Education How to access health informa tion online - Detail Indication:Nonsmoker Start:12-Jul-2019 Instruction Type:Patient Education Patient Instructions Indication:Nonsmoker Start:12-Jul-2019 Instruction Type:Provider Instructions for Treatment How to access health informa tion online Indication:Nonsmoker Start:05-Jul-2019 Instruction Type:Patient Education How to access health informa tion online - Detail Indication:Nonsmoker Start:05-Jul-2019 Instruction Type:Patient Education Patient Instructions Indication:Nonsmoker Start:05-Jul-2019 Instruction Type:Provider Instructions for Treatment How to access health informa tion online Indication:Nonsmoker Start:20-Jul-2018 Instruction Type:Patient Education How to access health informa tion online - Detail Indication:Nonsmoker Start:20-Jul-2018 Instruction Type:Patient Education Patient Instructions Indication:Nonsmoker Start:20-Jul-2018 Instruction Type:Provider Instructions for Treatment How to access health informa tion online Indication:Nonsmoker Start:23-Mar-2018 Instruction Type:Patient Education How to access health informa tion online - Detail Indication:Nonsmoker Start:23-Mar-2018 Instruction Type:Patient Education Patient Instructions Indication:Nonsmoker Start:23-Mar-2018 Instruction Type:Provider Instructions for Treatment How to access health informa tion online Indication:Diarrhea Start:04-Dec-2017 Instruction Type:Patient Education How to access health informa tion online - Detail Indication:Diarrhea Start:04-Dec-2017 Instruction Type:Patient Education Patient Instructions Indication:Diarrhea Start:04-Dec-2017 Instruction Type:Provider Instructions for Treatment How to access health informa tion online Indication:Diabetes mellitus type 2, uncontrolled (Renamed from Uncontrolled type 2 diabetes mellitus) Start:20-Nov-2017 Instruction Type:Patient Education How to access health informa tion online - Detail Indication:Diabetes mellitus type 2, uncontrolled (Renamed from Uncontrolled type 2 diabetes mellitus) Start:20-Nov-2017 Instruction Type:Patient Education Patient Instructions Indication:Diabetes mellitus type 2, uncontrolled (Renamed from Uncontrolled type 2 diabetes mellitus) Start:20-Nov-2017 Instruction Type:Provider Instructions for Treatment How to access health informa tion online Indication:Anxiety and depression Start:01-Sep-2017 Instruction Type:Patient Education How to access health informa tion online - Detail Indication:Anxiety and depression Start:01-Sep-2017 Instruction Type:Patient Education Patient Instructions Indication:Nonsmoker Start:01-Sep-2017 Instruction Type:Provider Instructions for Treatment Patient Instruction s Indication:Current smoker Start:11-Aug-2017 Instruction Type:Provider Instructions for Treatment How to access health informa tion online Indication:Current smoker Start:10-Aug-2017 Instruction Type:Patient Education How to access health informa tion online - Detail Indication:Current smoker Start:10-Aug-2017 Instruction Type:Patient Education Patient Instructions Indication:Post-nasal drainage Start:10-Aug-2017 Instruction Type:Provider Instructions for Treatment How to access health informa tion online Indication:Other abnormal glucose Start:14-May-2016 Instruction Type:Patient Education How to access health informa tion online - Detail Indication:Other abnormal glucose Start:14-May-2016 Instruction Type:Patient Education Patient Instructions Indication:Other abnormal glucose Start:14-May-2016 Instruction Type:Provider Instructions for Treatment How to access health informa tion online Indication:Other abnormal glucose Start:15-Jan-2016 Instruction Type:Patient Education How to access health informa tion online - Detail Indication:Other abnormal glucose Start:15-Jan-2016 Instruction Type:Patient Education Patient Instructions Indication:Other abnormal glucose Start:15-Jan-2016 Instruction Type:Provider Instructions for Treatment How to access health informa tion online Indication:Umbilical hernia Start:15-Oct-2015 Instruction Type:Patient Education How to access health informa tion online - Detail Indication:Umbilical hernia Start:15-Oct-2015 Instruction Type:Patient Education Patient Instructions Indication:Umbilical hernia Start:15-Oct-2015 Instruction Type:Provider Instructions for Treatment How to access health informa tion online Indication:Umbilical hernia Start:14-Sep-2015 Instruction Type:Patient Education How to access health informa tion online - Detail Indication:Umbilical hernia Start:14-Sep-2015 Instruction Type:Patient Education Patient Instructions Indication:Umbilical hernia Start:14-Sep-2015 Instruction Type:Provider Instructions for Treatment How to access health informa tion online Indication:Benign essential hypertension Start:16-Jul-2015 Instruction Type:Patient Education How to access health informa tion online - Detail Indication:Benign essential hypertension Start:16-Jul-2015 Instruction Type:Patient Education Patient Instructions Indication:Benign essential hypertension Start:16-Jul-2015 Instruction Type:Provider Instructions for Treatment How to access health informa tion online Indication:Syncope and collapse Start:04-Jun-2015 Instruction Type:Patient Education How to access health informa tion online - Detail Indication:Syncope and collapse Start:04-Jun-2015 Instruction Type:Patient Education Patient Instructions Indication:Syncope and collapse Start:04-Jun-2015 Instruction Type:Provider Instructions for Treatment Patient Instructions Indication:Knee Pain (Renamed from Gonalgia) Start:26-Mar-2015 Instruction Type:Provider Instructions for Treatment Patient Instructions Indication:Rash Start:21-Apr-2013 Instruction Type:Provider Instructions for Treatment Patient Instructions Indication:Anxiety and depression Start:15-Nov-2012 Instruction Type:Provider Instructions for Treatment Patient Instructions Indication:Benign essential hypertension Start:21-Oct-2012 Instruction Type:Provider Instructions for Treatment Patient Instructions Indication:Hypercholesterolemia Start:22-Jul-2012 Instruction Type:Provider Instructions for Treatment Sore throat: diagnosis and treatment Indication:Pharyngitis, acute Start:16-Dec-2006 Instruction Type:Patient Education [facility]; [facility] Work Phone: Instructions* Name Dates Details Patient Instructions Indication:BMI 36.0-36.9,adult Start:16-May-2022 Instruction Type:Provider Instructions for Treatment How to Access Health Informa tion Online using Patient Portal and [employer] Apps Indication:BMI 36.0-36.9,adult Start:16-May-2022 Instruction Type:Patient Education Smoking Cessation Indication:Current every day smoker Start:14-Feb-2022 Instruction Type:Patient Education How to Access Health Informa tion Online using Patient Portal and [employer]rd [employer] Apps Indication:Uncontrolled type 2 diabetes mellitus with hyperglycemia Start:14-Feb-2022 Instruction Type:Patient Education Patient Instructions Indication:Uncontrolled type 2 diabetes mellitus with hyperglycemia Start:14-Feb-2022 Instruction Type:Provider Instructions for Treatment Patient Instructions Indication:Diabetes mellitus type 2, uncontrolled (Renamed from Uncontrolled type 2 diabetes mellitus) Start:13-Nov-2021 Instruction Type:Provider Instructions for Treatment How to Access Health Informa tion Online using Patient Portal and [employer]rd [employer] Apps Indication:Diabetes mellitus type 2, uncontrolled (Renamed from Uncontrolled type 2 diabetes mellitus) Start:13-Nov-2021 Instruction Type:Patient Education Patient Instructions Indication:Diabetes mellitus type 2, uncontrolled (Renamed from Uncontrolled type 2 diabetes mellitus) Start:09-Aug-2021 Instruction Type:Provider Instructions for Treatment How to Access Health Informa tion Online using Patient Portal and [employer]rd [employer] Apps Indication:Diabetes mellitus type 2, uncontrolled (Renamed from Uncontrolled type 2 diabetes mellitus) Start:09-Aug-2021 Instruction Type:Patient Education DISCONTINUED - CBC, PLATELET S & AUT DIFF (00809) Indication:Diabetes mellitus type 2, uncontrolled (Renamed from Uncontrolled type 2 diabetes mellitus) Start:10-May-2021 Instruction Type:Patient Education Patient Instructions Indication:Nonsmoker Start:10-May-2021 Instruction Type:Provider Instructions for Treatment How to Access Health Informa tion Online using Patient Portal and [employer]rd [employer] Apps Indication:Nonsmoker Start:10-May-2021 Instruction Type:Patient Education Patient Instructions Indication:BMI 35.0-35.9,adult Start:19-Sep-2020 Instruction Type:Provider Instructions for Treatment How to Access Health Informa tion Online using Patient Portal and [employer]rd [employer] Apps Indication:Diabetes mellitus type 2, uncontrolled (Renamed from Uncontrolled type 2 diabetes mellitus) Start:19-Sep-2020 Instruction Type:Patient Education Patient Instructions come in fasting in August a week before your next apt. Indication:BMI 34.0-34.9,adult Start:21-May-2020 Instruction Type:Provider Instructions for Treatment How to Access Health Informa tion Online using Patient Portal and [employer]rd [employer] Apps Indication:BMI 34.0-34.9,adult Start:21-May-2020 Instruction Type:Patient Education How to access health informa tion online - Detail Indication:BMI 34.0-34.9,adult Start:15-Feb-2020 Instruction Type:Patient Education Patient Instructions Indication:BMI 34.0-34.9,adult Start:15-Feb-2020 Instruction Type:Provider Instructions for Treatment How to access health informa tion online Indication:Diabetes mellitus type 2, uncontrolled (Renamed from Uncontrolled type 2 diabetes mellitus) Start:06-Feb-2020 Instruction Type:Patient Education How to access health informa tion online - Detail Indication:Diabetes mellitus type 2, uncontrolled (Renamed from Uncontrolled type 2 diabetes mellitus) Start:06-Feb-2020 Instruction Type:Patient Education Patient Instructions Indication:Diabetes mellitus type 2, uncontrolled (Renamed from Uncontrolled type 2 diabetes mellitus) Start:06-Feb-2020 Instruction Type:Provider Instructions for Treatment Patient Instructions Indication:BMI 34.0-34.9,adult Start:04-Nov-2019 Instruction Type:Provider Instructions for Treatment How to access health informa tion online Indication:Diabetes mellitus type 2, uncontrolled (Renamed from Uncontrolled type 2 diabetes mellitus) Start:04-Nov-2019 Instruction Type:Patient Education How to access health informa tion online - Detail Indication:Diabetes mellitus type 2, uncontrolled (Renamed from Uncontrolled type 2 diabetes mellitus) Start:04-Nov-2019 Instruction Type:Patient Education Patient Instructions Indication:Diabetes mellitus type 2, uncontrolled (Renamed from Uncontrolled type 2 diabetes mellitus) Start:04-Nov-2019 Instruction Type:Provider Instructions for Treatment How to access health informa tion online Indication:Current smoker Start:23-Aug-2019 Instruction Type:Patient Education How to access health informa tion online - Detail Indication:BMI 34.0-34.9,adult Start:23-Aug-2019 Instruction Type:Patient Education Patient Instructions Indication:Current smoker Start:23-Aug-2019 Instruction Type:Provider Instructions for Treatment How to access health informa tion online Indication:Flu-like symptoms Start:15-Aug-2019 Instruction Type:Patient Education How to access health informa tion online - Detail Indication:Flu-like symptoms Start:15-Aug-2019 Instruction Type:Patient Education Patient Instructions Indication:Flu-like symptoms Start:15-Aug-2019 Instruction Type:Provider Instructions for Treatment How to access health informa tion online Indication:Nonsmoker Start:12-Jul-2019 Instruction Type:Patient Education How to access health informa tion online - Detail Indication:Nonsmoker Start:12-Jul-2019 Instruction Type:Patient Education Patient Instructions Indication:Nonsmoker Start:12-Jul-2019 Instruction Type:Provider Instructions for Treatment How to access health informa tion online Indication:Nonsmoker Start:05-Jul-2019 Instruction Type:Patient Education How to access health informa tion online - Detail Indication:Nonsmoker Start:05-Jul-2019 Instruction Type:Patient Education Patient Instructions Indication:Nonsmoker Start:05-Jul-2019 Instruction Type:Provider Instructions for Treatment How to access health informa tion online Indication:Nonsmoker Start:20-Jul-2018 Instruction Type:Patient Education How to access health informa tion online - Detail Indication:Nonsmoker Start:20-Jul-2018 Instruction Type:Patient Education Patient Instructions Indication:Nonsmoker Start:20-Jul-2018 Instruction Type:Provider Instructions for Treatment How to access health informa tion online Indication:Nonsmoker Start:23-Mar-2018 Instruction Type:Patient Education How to access health informa tion online - Detail Indication:Nonsmoker Start:23-Mar-2018 Instruction Type:Patient Education Patient Instructions Indication:Nonsmoker Start:23-Mar-2018 Instruction Type:Provider Instructions for Treatment How to access health informa tion online Indication:Diarrhea Start:04-Dec-2017 Instruction Type:Patient Education How to access health informa tion online - Detail Indication:Diarrhea Start:04-Dec-2017 Instruction Type:Patient Education Patient Instructions Indication:Diarrhea Start:04-Dec-2017 Instruction Type:Provider Instructions for Treatment How to access health informa tion online Indication:Diabetes mellitus type 2, uncontrolled (Renamed from Uncontrolled type 2 diabetes mellitus) Start:20-Nov-2017 Instruction Type:Patient Education How to access health informa tion online - Detail Indication:Diabetes mellitus type 2, uncontrolled (Renamed from Uncontrolled type 2 diabetes mellitus) Start:20-Nov-2017 Instruction Type:Patient Education Patient Instructions Indication:Diabetes mellitus type 2, uncontrolled (Renamed from Uncontrolled type 2 diabetes mellitus) Start:20-Nov-2017 Instruction Type:Provider Instructions for Treatment How to access health informa tion online Indication:Anxiety and depression Start:01-Sep-2017 Instruction Type:Patient Education How to access health informa tion online - Detail Indication:Anxiety and depression Start:01-Sep-2017 Instruction Type:Patient Education Patient Instructions Indication:Nonsmoker Start:01-Sep-2017 Instruction Type:Provider Instructions for Treatment Patient Instruction s Indication:Current smoker Start:11-Aug-2017 Instruction Type:Provider Instructions for Treatment How to access health informa tion online Indication:Current smoker Start:10-Aug-2017 Instruction Type:Patient Education How to access health informa tion online - Detail Indication:Current smoker Start:10-Aug-2017 Instruction Type:Patient Education Patient Instructions Indication:Post-nasal drainage Start:10-Aug-2017 Instruction Type:Provider Instructions for Treatment How to access health informa tion online Indication:Other abnormal glucose Start:14-May-2016 Instruction Type:Patient Education How to access health informa tion online - Detail Indication:Other abnormal glucose Start:14-May-2016 Instruction Type:Patient Education Patient Instructions Indication:Other abnormal glucose Start:14-May-2016 Instruction Type:Provider Instructions for Treatment How to access health informa tion online Indication:Other abnormal glucose Start:15-Jan-2016 Instruction Type:Patient Education How to access health informa tion online - Detail Indication:Other abnormal glucose Start:15-Jan-2016 Instruction Type:Patient Education Patient Instructions Indication:Other abnormal glucose Start:15-Jan-2016 Instruction Type:Provider Instructions for Treatment How to access health informa tion online Indication:Umbilical hernia Start:15-Oct-2015 Instruction Type:Patient Education How to access health informa tion online - Detail Indication:Umbilical hernia Start:15-Oct-2015 Instruction Type:Patient Education Patient Instructions Indication:Umbilical hernia Start:15-Oct-2015 Instruction Type:Provider Instructions for Treatment How to access health informa tion online Indication:Umbilical hernia Start:14-Sep-2015 Instruction Type:Patient Education How to access health informa tion online - Detail Indication:Umbilical hernia Start:14-Sep-2015 Instruction Type:Patient Education Patient Instructions Indication:Umbilical hernia Start:14-Sep-2015 Instruction Type:Provider Instructions for Treatment How to access health informa tion online Indication:Benign essential hypertension Start:16-Jul-2015 Instruction Type:Patient Education How to access health informa tion online - Detail Indication:Benign essential hypertension Start:16-Jul-2015 Instruction Type:Patient Education Patient Instructions Indication:Benign essential hypertension Start:16-Jul-2015 Instruction Type:Provider Instructions for Treatment How to access health informa tion online Indication:Syncope and collapse Start:04-Jun-2015 Instruction Type:Patient Education How to access health informa tion online - Detail Indication:Syncope and collapse Start:04-Jun-2015 Instruction Type:Patient Education Patient Instructions Indication:Syncope and collapse Start:04-Jun-2015 Instruction Type:Provider Instructions for Treatment Patient Instructions Indication:Knee Pain (Renamed from Gonalgia) Start:26-Mar-2015 Instruction Type:Provider Instructions for Treatment Patient Instructions Indication:Rash Start:21-Apr-2013 Instruction Type:Provider Instructions for Treatment Patient Instructions Indication:Anxiety and depression Start:15-Nov-2012 Instruction Type:Provider Instructions for Treatment Patient Instructions Indication:Benign essential hypertension Start:21-Oct-2012 Instruction Type:Provider Instructions for Treatment Patient Instructions Indication:Hypercholesterolemia Start:22-Jul-2012 Instruction Type:Provider Instructions for Treatment Sore throat: diagnosis and treatment Indication:Pharyngitis, acute Start:16-Dec-2006 Instruction Type:Patient Education [facility]; [facility] Work Phone: Instructions* Name Dates Details Patient Instructions Indication:BMI 36.0-36.9,adult Start:16-May-2022 Instruction Type:Provider Instructions for Treatment How to Access Health Informa tion Online using Patient Portal and [employer]rd [employer] Apps Indication:BMI 36.0-36.9,adult Start:16-May-2022 Instruction Type:Patient Education Smoking Cessation Indication:Current every day smoker Start:14-Feb-2022 Instruction Type:Patient Education How to Access Health Informa tion Online using Patient Portal and [employer]rd [employer] Apps Indication:Uncontrolled type 2 diabetes mellitus with hyperglycemia Start:14-Feb-2022 Instruction Type:Patient Education Patient Instructions Indication:Uncontrolled type 2 diabetes mellitus with hyperglycemia Start:14-Feb-2022 Instruction Type:Provider Instructions for Treatment Patient Instructions Indication:Diabetes mellitus type 2, uncontrolled (Renamed from Uncontrolled type 2 diabetes mellitus) Start:13-Nov-2021 Instruction Type:Provider Instructions for Treatment How to Access Health Informa tion Online using Patient Portal and [employer]rd [employer] Apps Indication:Diabetes mellitus type 2, uncontrolled (Renamed from Uncontrolled type 2 diabetes mellitus) Start:13-Nov-2021 Instruction Type:Patient Education Patient Instructions Indication:Diabetes mellitus type 2, uncontrolled (Renamed from Uncontrolled type 2 diabetes mellitus) Start:09-Aug-2021 Instruction Type:Provider Instructions for Treatment How to Access Health Informa tion Online using Patient Portal and [employer]rd [employer] Apps Indication:Diabetes mellitus type 2, uncontrolled (Renamed from Uncontrolled type 2 diabetes mellitus) Start:09-Aug-2021 Instruction Type:Patient Education DISCONTINUED - CBC, PLATELET S & AUT DIFF (35808) Indication:Diabetes mellitus type 2, uncontrolled (Renamed from Uncontrolled type 2 diabetes mellitus) Start:10-May-2021 Instruction Type:Patient Education Patient Instructions Indication:Nonsmoker Start:10-May-2021 Instruction Type:Provider Instructions for Treatment How to Access Health Informa tion Online using Patient Portal and [employer]rd [employer] Apps Indication:Nonsmoker Start:10-May-2021 Instruction Type:Patient Education Patient Instructions Indication:BMI 35.0-35.9,adult Start:19-Sep-2020 Instruction Type:Provider Instructions for Treatment How to Access Health Informa tion Online using Patient Portal and [employer]rd [employer] Apps Indication:Diabetes mellitus type 2, uncontrolled (Renamed from Uncontrolled type 2 diabetes mellitus) Start:19-Sep-2020 Instruction Type:Patient Education Patient Instructions come in fasting in August a week before your next apt. Indication:BMI 34.0-34.9,adult Start:21-May-2020 Instruction Type:Provider Instructions for Treatment How to Access Health Informa tion Online using Patient Portal and [employer]rd [employer] Apps Indication:BMI 34.0-34.9,adult Start:21-May-2020 Instruction Type:Patient Education How to access health informa tion online - Detail Indication:BMI 34.0-34.9,adult Start:15-Feb-2020 Instruction Type:Patient Education Patient Instructions Indication:BMI 34.0-34.9,adult Start:15-Feb-2020 Instruction Type:Provider Instructions for Treatment How to access health informa tion online Indication:Diabetes mellitus type 2, uncontrolled (Renamed from Uncontrolled type 2 diabetes mellitus) Start:06-Feb-2020 Instruction Type:Patient Education How to access health informa tion online - Detail Indication:Diabetes mellitus type 2, uncontrolled (Renamed from Uncontrolled type 2 diabetes mellitus) Start:06-Feb-2020 Instruction Type:Patient Education Patient Instructions Indication:Diabetes mellitus type 2, uncontrolled (Renamed from Uncontrolled type 2 diabetes mellitus) Start:06-Feb-2020 Instruction Type:Provider Instructions for Treatment Patient Instructions Indication:BMI 34.0-34.9,adult Start:04-Nov-2019 Instruction Type:Provider Instructions for Treatment How to access health informa tion online Indication:Diabetes mellitus type 2, uncontrolled (Renamed from Uncontrolled type 2 diabetes mellitus) Start:04-Nov-2019 Instruction Type:Patient Education How to access health informa tion online - Detail Indication:Diabetes mellitus type 2, uncontrolled (Renamed from Uncontrolled type 2 diabetes mellitus) Start:04-Nov-2019 Instruction Type:Patient Education Patient Instructions Indication:Diabetes mellitus type 2, uncontrolled (Renamed from Uncontrolled type 2 diabetes mellitus) Start:04-Nov-2019 Instruction Type:Provider Instructions for Treatment How to access health informa tion online Indication:Current smoker Start:23-Aug-2019 Instruction Type:Patient Education How to access health informa tion online - Detail Indication:BMI 34.0-34.9,adult Start:23-Aug-2019 Instruction Type:Patient Education Patient Instructions Indication:Current smoker Start:23-Aug-2019 Instruction Type:Provider Instructions for Treatment How to access health informa tion online Indication:Flu-like symptoms Start:15-Aug-2019 Instruction Type:Patient Education How to access health informa tion online - Detail Indication:Flu-like symptoms Start:15-Aug-2019 Instruction Type:Patient Education Patient Instructions Indication:Flu-like symptoms Start:15-Aug-2019 Instruction Type:Provider Instructions for Treatment How to access health informa tion online Indication:Nonsmoker Start:12-Jul-2019 Instruction Type:Patient Education How to access health informa tion online - Detail Indication:Nonsmoker Start:12-Jul-2019 Instruction Type:Patient Education Patient Instructions Indication:Nonsmoker Start:12-Jul-2019 Instruction Type:Provider Instructions for Treatment How to access health informa tion online Indication:Nonsmoker Start:05-Jul-2019 Instruction Type:Patient Education How to access health informa tion online - Detail Indication:Nonsmoker Start:05-Jul-2019 Instruction Type:Patient Education Patient Instructions Indication:Nonsmoker Start:05-Jul-2019 Instruction Type:Provider Instructions for Treatment How to access health informa tion online Indication:Nonsmoker Start:20-Jul-2018 Instruction Type:Patient Education How to access health informa tion online - Detail Indication:Nonsmoker Start:20-Jul-2018 Instruction Type:Patient Education Patient Instructions Indication:Nonsmoker Start:20-Jul-2018 Instruction Type:Provider Instructions for Treatment How to access health informa tion online Indication:Nonsmoker Start:23-Mar-2018 Instruction Type:Patient Education How to access health informa tion online - Detail Indication:Nonsmoker Start:23-Mar-2018 Instruction Type:Patient Education Patient Instructions Indication:Nonsmoker Start:23-Mar-2018 Instruction Type:Provider Instructions for Treatment How to access health informa tion online Indication:Diarrhea Start:04-Dec-2017 Instruction Type:Patient Education How to access health informa tion online - Detail Indication:Diarrhea Start:04-Dec-2017 Instruction Type:Patient Education Patient Instructions Indication:Diarrhea Start:04-Dec-2017 Instruction Type:Provider Instructions for Treatment How to access health informa tion online Indication:Diabetes mellitus type 2, uncontrolled (Renamed from Uncontrolled type 2 diabetes mellitus) Start:20-Nov-2017 Instruction Type:Patient Education How to access health informa tion online - Detail Indication:Diabetes mellitus type 2, uncontrolled (Renamed from Uncontrolled type 2 diabetes mellitus) Start:20-Nov-2017 Instruction Type:Patient Education Patient Instructions Indication:Diabetes mellitus type 2, uncontrolled (Renamed from Uncontrolled type 2 diabetes mellitus) Start:20-Nov-2017 Instruction Type:Provider Instructions for Treatment How to access health informa tion online Indication:Anxiety and depression Start:01-Sep-2017 Instruction Type:Patient Education How to access health informa tion online - Detail Indication:Anxiety and depression Start:01-Sep-2017 Instruction Type:Patient Education Patient Instructions Indication:Nonsmoker Start:01-Sep-2017 Instruction Type:Provider Instructions for Treatment Patient Instruction s Indication:Current smoker Start:11-Aug-2017 Instruction Type:Provider Instructions for Treatment How to access health informa tion online Indication:Current smoker Start:10-Aug-2017 Instruction Type:Patient Education How to access health informa tion online - Detail Indication:Current smoker Start:10-Aug-2017 Instruction Type:Patient Education Patient Instructions Indication:Post-nasal drainage Start:10-Aug-2017 Instruction Type:Provider Instructions for Treatment How to access health informa tion online Indication:Other abnormal glucose Start:14-May-2016 Instruction Type:Patient Education How to access health informa tion online - Detail Indication:Other abnormal glucose Start:14-May-2016 Instruction Type:Patient Education Patient Instructions Indication:Other abnormal glucose Start:14-May-2016 Instruction Type:Provider Instructions for Treatment How to access health informa tion online Indication:Other abnormal glucose Start:15-Jan-2016 Instruction Type:Patient Education How to access health informa tion online - Detail Indication:Other abnormal glucose Start:15-Jan-2016 Instruction Type:Patient Education Patient Instructions Indication:Other abnormal glucose Start:15-Jan-2016 Instruction Type:Provider Instructions for Treatment How to access health informa tion online Indication:Umbilical hernia Start:15-Oct-2015 Instruction Type:Patient Education How to access health informa tion online - Detail Indication:Umbilical hernia Start:15-Oct-2015 Instruction Type:Patient Education Patient Instructions Indication:Umbilical hernia Start:15-Oct-2015 Instruction Type:Provider Instructions for Treatment How to access health informa tion online Indication:Umbilical hernia Start:14-Sep-2015 Instruction Type:Patient Education How to access health informa tion online - Detail Indication:Umbilical hernia Start:14-Sep-2015 Instruction Type:Patient Education Patient Instructions Indication:Umbilical hernia Start:14-Sep-2015 Instruction Type:Provider Instructions for Treatment How to access health informa tion online Indication:Benign essential hypertension Start:16-Jul-2015 Instruction Type:Patient Education How to access health informa tion online - Detail Indication:Benign essential hypertension Start:16-Jul-2015 Instruction Type:Patient Education Patient Instructions Indication:Benign essential hypertension Start:16-Jul-2015 Instruction Type:Provider Instructions for Treatment How to access health informa tion online Indication:Syncope and collapse Start:04-Jun-2015 Instruction Type:Patient Education How to access health informa tion online - Detail Indication:Syncope and collapse Start:04-Jun-2015 Instruction Type:Patient Education Patient Instructions Indication:Syncope and collapse Start:04-Jun-2015 Instruction Type:Provider Instructions for Treatment Patient Instructions Indication:Knee Pain (Renamed from Gonalgia) Start:26-Mar-2015 Instruction Type:Provider Instructions for Treatment Patient Instructions Indication:Rash Start:21-Apr-2013 Instruction Type:Provider Instructions for Treatment Patient Instructions Indication:Anxiety and depression Start:15-Nov-2012 Instruction Type:Provider Instructions for Treatment Patient Instructions Indication:Benign essential hypertension Start:21-Oct-2012 Instruction Type:Provider Instructions for Treatment Patient Instructions Indication:Hypercholesterolemia Start:22-Jul-2012 Instruction Type:Provider Instructions for Treatment Sore throat: diagnosis and treatment Indication:Pharyngitis, acute Start:16-Dec-2006 Instruction Type:Patient Education [facility]; [facility] Work Phone: Instructions* Name Dates Details Patient Instructions Indication:BMI 36.0-36.9,adult Start:16-May-2022 Instruction Type:Provider Instructions for Treatment How to Access Health Informa tion Online using Patient Portal and [employer]rd [employer] Apps Indication:BMI 36.0-36.9,adult Start:16-May-2022 Instruction Type:Patient Education Smoking Cessation Indication:Current every day smoker Start:14-Feb-2022 Instruction Type:Patient Education How to Access Health Informa tion Online using Patient Portal and [employer]rd [employer] Apps Indication:Uncontrolled type 2 diabetes mellitus with hyperglycemia Start:14-Feb-2022 Instruction Type:Patient Education Patient Instructions Indication:Uncontrolled type 2 diabetes mellitus with hyperglycemia Start:14-Feb-2022 Instruction Type:Provider Instructions for Treatment Patient Instructions Indication:Diabetes mellitus type 2, uncontrolled (Renamed from Uncontrolled type 2 diabetes mellitus) Start:13-Nov-2021 Instruction Type:Provider Instructions for Treatment How to Access Health Informa tion Online using Patient Portal and [employer]rd [employer] Apps Indication:Diabetes mellitus type 2, uncontrolled (Renamed from Uncontrolled type 2 diabetes mellitus) Start:13-Nov-2021 Instruction Type:Patient Education Patient Instructions Indication:Diabetes mellitus type 2, uncontrolled (Renamed from Uncontrolled type 2 diabetes mellitus) Start:09-Aug-2021 Instruction Type:Provider Instructions for Treatment How to Access Health Informa tion Online using Patient Portal and 3rd [employer] Apps Indication:Diabetes mellitus type 2, uncontrolled (Renamed from Uncontrolled type 2 diabetes mellitus) Start:09-Aug-2021 Instruction Type:Patient Education DISCONTINUED - CBC, PLATELET S & AUT DIFF (72143) Indication:Diabetes mellitus type 2, uncontrolled (Renamed from Uncontrolled type 2 diabetes mellitus) Start:10-May-2021 Instruction Type:Patient Education Patient Instructions Indication:Nonsmoker Start:10-May-2021 Instruction Type:Provider Instructions for Treatment How to Access Health Informa tion Online using Patient Portal and 3rd [employer] Apps Indication:Nonsmoker Start:10-May-2021 Instruction Type:Patient Education Patient Instructions Indication:BMI 35.0-35.9,adult Start:19-Sep-2020 Instruction Type:Provider Instructions for Treatment How to Access Health Informa tion Online using Patient Portal and 3rd [employer] Apps Indication:Diabetes mellitus type 2, uncontrolled (Renamed from Uncontrolled type 2 diabetes mellitus) Start:19-Sep-2020 Instruction Type:Patient Education Patient Instructions come in fasting in August a week before your next apt. Indication:BMI 34.0-34.9,adult Start:21-May-2020 Instruction Type:Provider Instructions for Treatment How to Access Health Informa tion Online using Patient Portal and 3rd [employer] Apps Indication:BMI 34.0-34.9,adult Start:21-May-2020 Instruction Type:Patient Education How to access health informa tion online - Detail Indication:BMI 34.0-34.9,adult Start:15-Feb-2020 Instruction Type:Patient Education Patient Instructions Indication:BMI 34.0-34.9,adult Start:15-Feb-2020 Instruction Type:Provider Instructions for Treatment How to access health informa tion online Indication:Diabetes mellitus type 2, uncontrolled (Renamed from Uncontrolled type 2 diabetes mellitus) Start:06-Feb-2020 Instruction Type:Patient Education How to access health informa tion online - Detail Indication:Diabetes mellitus type 2, uncontrolled (Renamed from Uncontrolled type 2 diabetes mellitus) Start:06-Feb-2020 Instruction Type:Patient Education Patient Instructions Indication:Diabetes mellitus type 2, uncontrolled (Renamed from Uncontrolled type 2 diabetes mellitus) Start:06-Feb-2020 Instruction Type:Provider Instructions for Treatment Patient Instructions Indication:BMI 34.0-34.9,adult Start:04-Nov-2019 Instruction Type:Provider Instructions for Treatment How to access health informa tion online Indication:Diabetes mellitus type 2, uncontrolled (Renamed from Uncontrolled type 2 diabetes mellitus) Start:04-Nov-2019 Instruction Type:Patient Education How to access health informa tion online - Detail Indication:Diabetes mellitus type 2, uncontrolled (Renamed from Uncontrolled type 2 diabetes mellitus) Start:04-Nov-2019 Instruction Type:Patient Education Patient Instructions Indication:Diabetes mellitus type 2, uncontrolled (Renamed from Uncontrolled type 2 diabetes mellitus) Start:04-Nov-2019 Instruction Type:Provider Instructions for Treatment How to access health informa tion online Indication:Current smoker Start:23-Aug-2019 Instruction Type:Patient Education How to access health informa tion online - Detail Indication:BMI 34.0-34.9,adult Start:23-Aug-2019 Instruction Type:Patient Education Patient Instructions Indication:Current smoker Start:23-Aug-2019 Instruction Type:Provider Instructions for Treatment How to access health informa tion online Indication:Flu-like symptoms Start:15-Aug-2019 Instruction Type:Patient Education How to access health informa tion online - Detail Indication:Flu-like symptoms Start:15-Aug-2019 Instruction Type:Patient Education Patient Instructions Indication:Flu-like symptoms Start:15-Aug-2019 Instruction Type:Provider Instructions for Treatment How to access health informa tion online Indication:Nonsmoker Start:12-Jul-2019 Instruction Type:Patient Education How to access health informa tion online - Detail Indication:Nonsmoker Start:12-Jul-2019 Instruction Type:Patient Education Patient Instructions Indication:Nonsmoker Start:12-Jul-2019 Instruction Type:Provider Instructions for Treatment How to access health informa tion online Indication:Nonsmoker Start:05-Jul-2019 Instruction Type:Patient Education How to access health informa tion online - Detail Indication:Nonsmoker Start:05-Jul-2019 Instruction Type:Patient Education Patient Instructions Indication:Nonsmoker Start:05-Jul-2019 Instruction Type:Provider Instructions for Treatment How to access health informa tion online Indication:Nonsmoker Start:20-Jul-2018 Instruction Type:Patient Education How to access health informa tion online - Detail Indication:Nonsmoker Start:20-Jul-2018 Instruction Type:Patient Education Patient Instructions Indication:Nonsmoker Start:20-Jul-2018 Instruction Type:Provider Instructions for Treatment How to access health informa tion online Indication:Nonsmoker Start:23-Mar-2018 Instruction Type:Patient Education How to access health informa tion online - Detail Indication:Nonsmoker Start:23-Mar-2018 Instruction Type:Patient Education Patient Instructions Indication:Nonsmoker Start:23-Mar-2018 Instruction Type:Provider Instructions for Treatment How to access health informa tion online Indication:Diarrhea Start:04-Dec-2017 Instruction Type:Patient Education How to access health informa tion online - Detail Indication:Diarrhea Start:04-Dec-2017 Instruction Type:Patient Education Patient Instructions Indication:Diarrhea Start:04-Dec-2017 Instruction Type:Provider Instructions for Treatment How to access health informa tion online Indication:Diabetes mellitus type 2, uncontrolled (Renamed from Uncontrolled type 2 diabetes mellitus) Start:20-Nov-2017 Instruction Type:Patient Education How to access health informa tion online - Detail Indication:Diabetes mellitus type 2, uncontrolled (Renamed from Uncontrolled type 2 diabetes mellitus) Start:20-Nov-2017 Instruction Type:Patient Education Patient Instructions Indication:Diabetes mellitus type 2, uncontrolled (Renamed from Uncontrolled type 2 diabetes mellitus) Start:20-Nov-2017 Instruction Type:Provider Instructions for Treatment How to access health informa tion online Indication:Anxiety and depression Start:01-Sep-2017 Instruction Type:Patient Education How to access health informa tion online - Detail Indication:Anxiety and depression Start:01-Sep-2017 Instruction Type:Patient Education Patient Instructions Indication:Nonsmoker Start:01-Sep-2017 Instruction Type:Provider Instructions for Treatment Patient Instruction s Indication:Current smoker Start:11-Aug-2017 Instruction Type:Provider Instructions for Treatment How to access health informa tion online Indication:Current smoker Start:10-Aug-2017 Instruction Type:Patient Education How to access health informa tion online - Detail Indication:Current smoker Start:10-Aug-2017 Instruction Type:Patient Education Patient Instructions Indication:Post-nasal drainage Start:10-Aug-2017 Instruction Type:Provider Instructions for Treatment How to access health informa tion online Indication:Other abnormal glucose Start:14-May-2016 Instruction Type:Patient Education How to access health informa tion online - Detail Indication:Other abnormal glucose Start:14-May-2016 Instruction Type:Patient Education Patient Instructions Indication:Other abnormal glucose Start:14-May-2016 Instruction Type:Provider Instructions for Treatment How to access health informa tion online Indication:Other abnormal glucose Start:15-Jan-2016 Instruction Type:Patient Education How to access health informa tion online - Detail Indication:Other abnormal glucose Start:15-Jan-2016 Instruction Type:Patient Education Patient Instructions Indication:Other abnormal glucose Start:15-Jan-2016 Instruction Type:Provider Instructions for Treatment How to access health informa tion online Indication:Umbilical hernia Start:15-Oct-2015 Instruction Type:Patient Education How to access health informa tion online - Detail Indication:Umbilical hernia Start:15-Oct-2015 Instruction Type:Patient Education Patient Instructions Indication:Umbilical hernia Start:15-Oct-2015 Instruction Type:Provider Instructions for Treatment How to access health informa tion online Indication:Umbilical hernia Start:14-Sep-2015 Instruction Type:Patient Education How to access health informa tion online - Detail Indication:Umbilical hernia Start:14-Sep-2015 Instruction Type:Patient Education Patient Instructions Indication:Umbilical hernia Start:14-Sep-2015 Instruction Type:Provider Instructions for Treatment How to access health informa tion online Indication:Benign essential hypertension Start:16-Jul-2015 Instruction Type:Patient Education How to access health informa tion online - Detail Indication:Benign essential hypertension Start:16-Jul-2015 Instruction Type:Patient Education Patient Instructions Indication:Benign essential hypertension Start:16-Jul-2015 Instruction Type:Provider Instructions for Treatment How to access health informa tion online Indication:Syncope and collapse Start:04-Jun-2015 Instruction Type:Patient Education How to access health informa tion online - Detail Indication:Syncope and collapse Start:04-Jun-2015 Instruction Type:Patient Education Patient Instructions Indication:Syncope and collapse Start:04-Jun-2015 Instruction Type:Provider Instructions for Treatment Patient Instructions Indication:Knee Pain (Renamed from Gonalgia) Start:26-Mar-2015 Instruction Type:Provider Instructions for Treatment Patient Instructions Indication:Rash Start:21-Apr-2013 Instruction Type:Provider Instructions for Treatment Patient Instructions Indication:Anxiety and depression Start:15-Nov-2012 Instruction Type:Provider Instructions for Treatment Patient Instructions Indication:Benign essential hypertension Start:21-Oct-2012 Instruction Type:Provider Instructions for Treatment Patient Instructions Indication:Hypercholesterolemia Start:22-Jul-2012 Instruction Type:Provider Instructions for Treatment Sore throat: diagnosis and treatment Indication:Pharyngitis, acute Start:16-Dec-2006 Instruction Type:Patient Education [facility]; [facility] Work Phone: Instructions* Name Dates Details Patient Instructions Indication:BMI 36.0-36.9,adult Start:16-May-2022 Instruction Type:Provider Instructions for Treatment How to Access Health Informa tion Online using Patient Portal and [employer]rd [employer] Apps Indication:BMI 36.0-36.9,adult Start:16-May-2022 Instruction Type:Patient Education Smoking Cessation Indication:Current every day smoker Start:14-Feb-2022 Instruction Type:Patient Education How to Access Health Informa tion Online using Patient Portal and [employer]rd [employer] Apps Indication:Uncontrolled type 2 diabetes mellitus with hyperglycemia Start:14-Feb-2022 Instruction Type:Patient Education Patient Instructions Indication:Uncontrolled type 2 diabetes mellitus with hyperglycemia Start:14-Feb-2022 Instruction Type:Provider Instructions for Treatment Patient Instructions Indication:Diabetes mellitus type 2, uncontrolled (Renamed from Uncontrolled type 2 diabetes mellitus) Start:13-Nov-2021 Instruction Type:Provider Instructions for Treatment How to Access Health Informa tion Online using Patient Portal and 3rd [employer] Apps Indication:Diabetes mellitus type 2, uncontrolled (Renamed from Uncontrolled type 2 diabetes mellitus) Start:13-Nov-2021 Instruction Type:Patient Education Patient Instructions Indication:Diabetes mellitus type 2, uncontrolled (Renamed from Uncontrolled type 2 diabetes mellitus) Start:09-Aug-2021 Instruction Type:Provider Instructions for Treatment How to Access Health Informa tion Online using Patient Portal and 3rd [employer] Apps Indication:Diabetes mellitus type 2, uncontrolled (Renamed from Uncontrolled type 2 diabetes mellitus) Start:09-Aug-2021 Instruction Type:Patient Education DISCONTINUED - CBC, PLATELET S & AUT DIFF (28450) Indication:Diabetes mellitus type 2, uncontrolled (Renamed from Uncontrolled type 2 diabetes mellitus) Start:10-May-2021 Instruction Type:Patient Education Patient Instructions Indication:Nonsmoker Start:10-May-2021 Instruction Type:Provider Instructions for Treatment How to Access Health Informa tion Online using Patient Portal and 3rd [employer] Apps Indication:Nonsmoker Start:10-May-2021 Instruction Type:Patient Education Patient Instructions Indication:BMI 35.0-35.9,adult Start:19-Sep-2020 Instruction Type:Provider Instructions for Treatment How to Access Health Informa tion Online using Patient Portal and 3rd [employer] Apps Indication:Diabetes mellitus type 2, uncontrolled (Renamed from Uncontrolled type 2 diabetes mellitus) Start:19-Sep-2020 Instruction Type:Patient Education Patient Instructions come in fasting in August a week before your next apt. Indication:BMI 34.0-34.9,adult Start:21-May-2020 Instruction Type:Provider Instructions for Treatment How to Access Health Informa tion Online using Patient Portal and 3rd [employer] Apps Indication:BMI 34.0-34.9,adult Start:21-May-2020 Instruction Type:Patient Education How to access health informa tion online - Detail Indication:BMI 34.0-34.9,adult Start:15-Feb-2020 Instruction Type:Patient Education Patient Instructions Indication:BMI 34.0-34.9,adult Start:15-Feb-2020 Instruction Type:Provider Instructions for Treatment How to access health informa tion online Indication:Diabetes mellitus type 2, uncontrolled (Renamed from Uncontrolled type 2 diabetes mellitus) Start:06-Feb-2020 Instruction Type:Patient Education How to access health informa tion online - Detail Indication:Diabetes mellitus type 2, uncontrolled (Renamed from Uncontrolled type 2 diabetes mellitus) Start:06-Feb-2020 Instruction Type:Patient Education Patient Instructions Indication:Diabetes mellitus type 2, uncontrolled (Renamed from Uncontrolled type 2 diabetes mellitus) Start:06-Feb-2020 Instruction Type:Provider Instructions for Treatment Patient Instructions Indication:BMI 34.0-34.9,adult Start:04-Nov-2019 Instruction Type:Provider Instructions for Treatment How to access health informa tion online Indication:Diabetes mellitus type 2, uncontrolled (Renamed from Uncontrolled type 2 diabetes mellitus) Start:04-Nov-2019 Instruction Type:Patient Education How to access health informa tion online - Detail Indication:Diabetes mellitus type 2, uncontrolled (Renamed from Uncontrolled type 2 diabetes mellitus) Start:04-Nov-2019 Instruction Type:Patient Education Patient Instructions Indication:Diabetes mellitus type 2, uncontrolled (Renamed from Uncontrolled type 2 diabetes mellitus) Start:04-Nov-2019 Instruction Type:Provider Instructions for Treatment How to access health informa tion online Indication:Current smoker Start:23-Aug-2019 Instruction Type:Patient Education How to access health informa tion online - Detail Indication:BMI 34.0-34.9,adult Start:23-Aug-2019 Instruction Type:Patient Education Patient Instructions Indication:Current smoker Start:23-Aug-2019 Instruction Type:Provider Instructions for Treatment How to access health informa tion online Indication:Flu-like symptoms Start:15-Aug-2019 Instruction Type:Patient Education How to access health informa tion online - Detail Indication:Flu-like symptoms Start:15-Aug-2019 Instruction Type:Patient Education Patient Instructions Indication:Flu-like symptoms Start:15-Aug-2019 Instruction Type:Provider Instructions for Treatment How to access health informa tion online Indication:Nonsmoker Start:12-Jul-2019 Instruction Type:Patient Education How to access health informa tion online - Detail Indication:Nonsmoker Start:12-Jul-2019 Instruction Type:Patient Education Patient Instructions Indication:Nonsmoker Start:12-Jul-2019 Instruction Type:Provider Instructions for Treatment How to access health informa tion online Indication:Nonsmoker Start:05-Jul-2019 Instruction Type:Patient Education How to access health informa tion online - Detail Indication:Nonsmoker Start:05-Jul-2019 Instruction Type:Patient Education Patient Instructions Indication:Nonsmoker Start:05-Jul-2019 Instruction Type:Provider Instructions for Treatment How to access health informa tion online Indication:Nonsmoker Start:20-Jul-2018 Instruction Type:Patient Education How to access health informa tion online - Detail Indication:Nonsmoker Start:20-Jul-2018 Instruction Type:Patient Education Patient Instructions Indication:Nonsmoker Start:20-Jul-2018 Instruction Type:Provider Instructions for Treatment How to access health informa tion online Indication:Nonsmoker Start:23-Mar-2018 Instruction Type:Patient Education How to access health informa tion online - Detail Indication:Nonsmoker Start:23-Mar-2018 Instruction Type:Patient Education Patient Instructions Indication:Nonsmoker Start:23-Mar-2018 Instruction Type:Provider Instructions for Treatment How to access health informa tion online Indication:Diarrhea Start:04-Dec-2017 Instruction Type:Patient Education How to access health informa tion online - Detail Indication:Diarrhea Start:04-Dec-2017 Instruction Type:Patient Education Patient Instructions Indication:Diarrhea Start:04-Dec-2017 Instruction Type:Provider Instructions for Treatment How to access health informa tion online Indication:Diabetes mellitus type 2, uncontrolled (Renamed from Uncontrolled type 2 diabetes mellitus) Start:20-Nov-2017 Instruction Type:Patient Education How to access health informa tion online - Detail Indication:Diabetes mellitus type 2, uncontrolled (Renamed from Uncontrolled type 2 diabetes mellitus) Start:20-Nov-2017 Instruction Type:Patient Education Patient Instructions Indication:Diabetes mellitus type 2, uncontrolled (Renamed from Uncontrolled type 2 diabetes mellitus) Start:20-Nov-2017 Instruction Type:Provider Instructions for Treatment How to access health informa tion online Indication:Anxiety and depression Start:01-Sep-2017 Instruction Type:Patient Education How to access health informa tion online - Detail Indication:Anxiety and depression Start:01-Sep-2017 Instruction Type:Patient Education Patient Instructions Indication:Nonsmoker Start:01-Sep-2017 Instruction Type:Provider Instructions for Treatment Patient Instruction s Indication:Current smoker Start:11-Aug-2017 Instruction Type:Provider Instructions for Treatment How to access health informa tion online Indication:Current smoker Start:10-Aug-2017 Instruction Type:Patient Education How to access health informa tion online - Detail Indication:Current smoker Start:10-Aug-2017 Instruction Type:Patient Education Patient Instructions Indication:Post-nasal drainage Start:10-Aug-2017 Instruction Type:Provider Instructions for Treatment How to access health informa tion online Indication:Other abnormal glucose Start:14-May-2016 Instruction Type:Patient Education How to access health informa tion online - Detail Indication:Other abnormal glucose Start:14-May-2016 Instruction Type:Patient Education Patient Instructions Indication:Other abnormal glucose Start:14-May-2016 Instruction Type:Provider Instructions for Treatment How to access health informa tion online Indication:Other abnormal glucose Start:15-Jan-2016 Instruction Type:Patient Education How to access health informa tion online - Detail Indication:Other abnormal glucose Start:15-Jan-2016 Instruction Type:Patient Education Patient Instructions Indication:Other abnormal glucose Start:15-Jan-2016 Instruction Type:Provider Instructions for Treatment How to access health informa tion online Indication:Umbilical hernia Start:15-Oct-2015 Instruction Type:Patient Education How to access health informa tion online - Detail Indication:Umbilical hernia Start:15-Oct-2015 Instruction Type:Patient Education Patient Instructions Indication:Umbilical hernia Start:15-Oct-2015 Instruction Type:Provider Instructions for Treatment How to access health informa tion online Indication:Umbilical hernia Start:14-Sep-2015 Instruction Type:Patient Education How to access health informa tion online - Detail Indication:Umbilical hernia Start:14-Sep-2015 Instruction Type:Patient Education Patient Instructions Indication:Umbilical hernia Start:14-Sep-2015 Instruction Type:Provider Instructions for Treatment How to access health informa tion online Indication:Benign essential hypertension Start:16-Jul-2015 Instruction Type:Patient Education How to access health informa tion online - Detail Indication:Benign essential hypertension Start:16-Jul-2015 Instruction Type:Patient Education Patient Instructions Indication:Benign essential hypertension Start:16-Jul-2015 Instruction Type:Provider Instructions for Treatment How to access health informa tion online Indication:Syncope and collapse Start:04-Jun-2015 Instruction Type:Patient Education How to access health informa tion online - Detail Indication:Syncope and collapse Start:04-Jun-2015 Instruction Type:Patient Education Patient Instructions Indication:Syncope and collapse Start:04-Jun-2015 Instruction Type:Provider Instructions for Treatment Patient Instructions Indication:Knee Pain (Renamed from Gonalgia) Start:26-Mar-2015 Instruction Type:Provider Instructions for Treatment Patient Instructions Indication:Rash Start:21-Apr-2013 Instruction Type:Provider Instructions for Treatment Patient Instructions Indication:Anxiety and depression Start:15-Nov-2012 Instruction Type:Provider Instructions for Treatment Patient Instructions Indication:Benign essential hypertension Start:21-Oct-2012 Instruction Type:Provider Instructions for Treatment Patient Instructions Indication:Hypercholesterolemia Start:22-Jul-2012 Instruction Type:Provider Instructions for Treatment Sore throat: diagnosis and treatment Indication:Pharyngitis, acute Start:16-Dec-2006 Instruction Type:Patient Education [facility]; [facility] Work Phone: reason for referral (narrative)* Diagnostic Procedure Only (Routine) - Pending Review Specialty Diagnoses / Procedures Referred By Karen roman Referred To Contact XR IMAGING Diagnoses Closed displaced oblique fracture of shaft of right tibia with routine healing, subsequent encounter Procedures XR TIBIA FIBULA 2V AP/LAT RIGHT RADIOLOGIC EXAMINATION TIBIA & FIBULA 2 VIEWS Bao Peralta MD [address] [place] [address] Xr Imaging Referral ID Status Reason Start Date Expiration Date Visits Requested Visits Authorized [id number] Pending Review Auto-Generat ed Referral 12/18/2021 01/17/2023 1 1 [facility] for referral (narrative)* Diagnostic Procedure Only (Routine) - Pending Review Specialty Diagnoses / Procedures Referred By Karen roman Referred To Contact XR IMAGING Diagnoses Closed displaced oblique fracture of shaft of right tibia with routine healing, subsequent encounter Procedures XR TIBIA FIBULA 2V AP/LAT RIGHT RADIOLOGIC EXAMINATION TIBIA & FIBULA 2 VIEWS Bao Peralta MD [address] [address] Xr Imaging Referral ID Status Reason Start Date Expiration Date Visits Requested Visits Authorized [id number] Pending Review Auto-Generat ed Referral 01/22/2022 02/21/2023 1 1 [facility] Family History No Family History Records FoundUnknown Family Member Name Dates Details Family Members In General Comments:DM, HBP, High cherelle sterol Status:Active Unknown Family Member Name Dates Details Family Members In General Comments:DM, HBP, High cherelle sterol Status:Active Unknown Family Member Name Dates Details Family Members In General Comments:DM, HBP, High cherelle sterol Status:Active Unknown Family Member Name Dates Details Family Members In General Comments:DM, HBP, High cherelle sterol Status:Active Unknown Family Member Name Dates Details Family Members In General Comments:DM, HBP, High cherelle sterol Status:Active Unknown Family Member Name Dates Details Family Members In General Comments:DM, HBP, High cherelle sterol Status:Active Unknown Family Member Name Dates Details Family Members In General Comments:DM, HBP, High cherelle sterol Status:Active Unknown Family Member Name Dates Details Family Members In General Comments:DM, HBP, High cherelle sterol Status:Active Unknown Family Member Name Dates Details Family Members In General Comments:DM, HBP, High cherelle sterol Status:Active Unknown Family Member Name Dates Details Family Members In General Comments:DM, HBP, High cherelle sterol Status:Active Unknown Family Member Name Dates Details Family Members In General Comments:DM, HBP, High cherelle sterol Status:Active Unknown Family Member Name Dates Details Family Members In General Comments:DM, HBP, High cherelle sterol Status:Active Unknown Family Member Name Dates Details Family Members In General Comments:DM, HBP, High cherelle sterol Status:Active Relationship Condition Age at Onset Recorded Date/T raheem father Coronary artery disease Unknown Unknown Family Member Name Dates Details Family Members In General Comments:DM, HBP, High cherelle sterol Status:Active Unknown Family Member Name Dates Details Family Members In General Comments:DM, HBP, High cherelle sterol Status:Active Unknown Family Member Name Dates Details Family Members In General Comments:DM, HBP, High cherelle sterol Status:Active Unknown Family Member Name Dates Details Family Members In General Comments:DM, HBP, High cherelle sterol Status:Active Unknown Family Member Name Dates Details Family Members In General Comments:DM, HBP, High cherelle sterol Status:Active Relationship Condition Age at Onset Recorded Date/T raheem father Coronary artery disease Unknown Myocardial infarction Unknown Hypertension Unknown Cardiac disease Unknown mother Cardiac disease Unknown Atrial arrhythmia Unknown Unknown Family Member Name Dates Details Family Members In General Comments:DM, HBP, High cherelle sterol Status:Active Unknown Family Member Name Dates Details Family Members In General Comments:DM, HBP, High cherelle sterol Status:Active Instructions Name Dates Details Nonsmoker : How to access he alth information online Indication:Nonsmoker Nonsmoker : How to access he alth information online - Detail Indication:Nonsmoker Nonsmoker : Patient Instruct ions Indication:Nonsmoker Diarrhea : How to access hea lth information online Indication:Diarrhea Diarrhea : How to access hea lth information online - Detail Indication:Diarrhea Diarrhea : Patient Instructi ons Indication:Diarrhea Diabetes mellitus type 2, un controlled (Renamed from Uncontrolled type 2 diabetes mellitus) : How to access health information online Indication:Diabetes mellitus type 2, uncontrolled (Renamed from Uncontrolled type 2 diabetes mellitus) Diabetes mellitus type 2, un controlled (Renamed from Uncontrolled type 2 diabetes mellitus) : How to access health information online - Detail Indication:Diabetes mellitus type 2, uncontrolled (Renamed from Uncontrolled type 2 diabetes mellitus) Diabetes mellitus type 2, un controlled (Renamed from Uncontrolled type 2 diabetes mellitus) : Patient Instructions Indication:Diabetes mellitus type 2, uncontrolled (Renamed from Uncontrolled type 2 diabetes mellitus) Anxiety and depression : How to access health information online Indication:Anxiety and depression Anxiety and depression : How to access health information online - Detail Indication:Anxiety and depression Current smoker : Patient Ins truction s Indication:Current smoker Current smoker : How to acce ss health information online Indication:Current smoker Current smoker : How to acce ss health information online - Detail Indication:Current smoker Post-nasal drainage : Patien t Instructions Indication:Post-nasal drainage Other abnormal glucose : How to access health information online Indication:Other abnormal glucose Other abnormal glucose : How to access health information online - Detail Indication:Other abnormal glucose Other abnormal glucose : Pat ient Instructions Indication:Other abnormal glucose Umbilical hernia : How to ac cess health information online Indication:Umbilical hernia Umbilical hernia : How to ac cess health information online - Detail Indication:Umbilical hernia Umbilical hernia : Patient I nstructions Indication:Umbilical hernia Benign essential hypertensio n : How to access health information online Indication:Benign essential hypertension Benign essential hypertensio n : How to access health information online - Detail Indication:Benign essential hypertension Benign essential hypertensio n : Patient Instructions Indication:Benign essential hypertension Syncope and collapse : How t o access health information online Indication:Syncope and collapse Syncope and collapse : How t o access health information online - Detail Indication:Syncope and collapse Syncope and collapse : Patie nt Instructions Indication:Syncope and collapse Knee Pain (Renamed from Gona lgia) : Patient Instructions Indication:Knee Pain (Renamed from Gonalgia) Rash : Patient Instructions Indication:Rash Anxiety and depression : Pat ient Instructions Indication:Anxiety and depression Hypercholesterolemia : Patie nt Instructions Indication:Hypercholesterolemia Pharyngitis, acute : Sore th roat: diagnosis and treatment Indication:Pharyngitis, acute Name Dates Details Nonsmoker : How to access he alth information online Indication:Nonsmoker Nonsmoker : How to access he alth information online - Detail Indication:Nonsmoker Nonsmoker : Patient Instruct ions Indication:Nonsmoker Diarrhea : How to access hea lth information online Indication:Diarrhea Diarrhea : How to access hea lth information online - Detail Indication:Diarrhea Diarrhea : Patient Instructi ons Indication:Diarrhea Diabetes mellitus type 2, un controlled (Renamed from Uncontrolled type 2 diabetes mellitus) : How to access health information online Indication:Diabetes mellitus type 2, uncontrolled (Renamed from Uncontrolled type 2 diabetes mellitus) Diabetes mellitus type 2, un controlled (Renamed from Uncontrolled type 2 diabetes mellitus) : How to access health information online - Detail Indication:Diabetes mellitus type 2, uncontrolled (Renamed from Uncontrolled type 2 diabetes mellitus) Diabetes mellitus type 2, un controlled (Renamed from Uncontrolled type 2 diabetes mellitus) : Patient Instructions Indication:Diabetes mellitus type 2, uncontrolled (Renamed from Uncontrolled type 2 diabetes mellitus) Anxiety and depression : How to access health information online Indication:Anxiety and depression Anxiety and depression : How to access health information online - Detail Indication:Anxiety and depression Current smoker : Patient Ins truction s Indication:Current smoker Current smoker : How to acce ss health information online Indication:Current smoker Current smoker : How to acce ss health information online - Detail Indication:Current smoker Post-nasal drainage : Patien t Instructions Indication:Post-nasal drainage Other abnormal glucose : How to access health information online Indication:Other abnormal glucose Other abnormal glucose : How to access health information online - Detail Indication:Other abnormal glucose Other abnormal glucose : Pat ient Instructions Indication:Other abnormal glucose Umbilical hernia : How to ac cess health information online Indication:Umbilical hernia Umbilical hernia : How to ac cess health information online - Detail Indication:Umbilical hernia Umbilical hernia : Patient I nstructions Indication:Umbilical hernia Benign essential hypertensio n : How to access health information online Indication:Benign essential hypertension Benign essential hypertensio n : How to access health information online - Detail Indication:Benign essential hypertension Benign essential hypertensio n : Patient Instructions Indication:Benign essential hypertension Syncope and collapse : How t o access health information online Indication:Syncope and collapse Syncope and collapse : How t o access health information online - Detail Indication:Syncope and collapse Syncope and collapse : Patie nt Instructions Indication:Syncope and collapse Knee Pain (Renamed from Gona lgia) : Patient Instructions Indication:Knee Pain (Renamed from Gonalgia) Rash : Patient Instructions Indication:Rash Anxiety and depression : Pat ient Instructions Indication:Anxiety and depression Hypercholesterolemia : Patie nt Instructions Indication:Hypercholesterolemia Pharyngitis, acute : Sore th roat: diagnosis and treatment Indication:Pharyngitis, acute Name Dates Details How to access health informa [employer] online Indication:Diabetes mellitus type 2, uncontrolled (Renamed from Uncontrolled type 2 diabetes mellitus) Start:06-Feb-2020 Instruction Type:Patient Education How to access health informa tion online - Detail Indication:Diabetes mellitus type 2, uncontrolled (Renamed from Uncontrolled type 2 diabetes mellitus) Start:06-Feb-2020 Instruction Type:Patient Education Patient Instructions Indication:Diabetes mellitus type 2, uncontrolled (Renamed from Uncontrolled type 2 diabetes mellitus) Start:06-Feb-2020 Instruction Type:Provider Instructions for Treatment Patient Instructions Indication:BMI 34.0-34.9,adult Start:04-Nov-2019 Instruction Type:Provider Instructions for Treatment How to access health informa tion online Indication:Diabetes mellitus type 2, uncontrolled (Renamed from Uncontrolled type 2 diabetes mellitus) Start:04-Nov-2019 Instruction Type:Patient Education How to access health informa tion online - Detail Indication:Diabetes mellitus type 2, uncontrolled (Renamed from Uncontrolled type 2 diabetes mellitus) Start:04-Nov-2019 Instruction Type:Patient Education Patient Instructions Indication:Diabetes mellitus type 2, uncontrolled (Renamed from Uncontrolled type 2 diabetes mellitus) Start:04-Nov-2019 Instruction Type:Provider Instructions for Treatment How to access health informa tion online Indication:Current smoker Start:23-Aug-2019 Instruction Type:Patient Education How to access health informa tion online - Detail Indication:BMI 34.0-34.9,adult Start:23-Aug-2019 Instruction Type:Patient Education Patient Instructions Indication:Current smoker Start:23-Aug-2019 Instruction Type:Provider Instructions for Treatment How to access health informa tion online Indication:Flu-like symptoms Start:15-Aug-2019 Instruction Type:Patient Education How to access health informa tion online - Detail Indication:Flu-like symptoms Start:15-Aug-2019 Instruction Type:Patient Education Patient Instructions Indication:Flu-like symptoms Start:15-Aug-2019 Instruction Type:Provider Instructions for Treatment How to access health informa tion online Indication:Nonsmoker Start:12-Jul-2019 Instruction Type:Patient Education How to access health informa tion online - Detail Indication:Nonsmoker Start:12-Jul-2019 Instruction Type:Patient Education Patient Instructions Indication:Nonsmoker Start:12-Jul-2019 Instruction Type:Provider Instructions for Treatment How to access health informa tion online Indication:Nonsmoker Start:05-Jul-2019 Instruction Type:Patient Education How to access health informa tion online - Detail Indication:Nonsmoker Start:05-Jul-2019 Instruction Type:Patient Education Patient Instructions Indication:Nonsmoker Start:05-Jul-2019 Instruction Type:Provider Instructions for Treatment How to access health informa tion online Indication:Nonsmoker Start:20-Jul-2018 Instruction Type:Patient Education How to access health informa tion online - Detail Indication:Nonsmoker Start:20-Jul-2018 Instruction Type:Patient Education Patient Instructions Indication:Nonsmoker Start:20-Jul-2018 Instruction Type:Provider Instructions for Treatment How to access health informa tion online Indication:Nonsmoker Start:23-Mar-2018 Instruction Type:Patient Education How to access health informa tion online - Detail Indication:Nonsmoker Start:23-Mar-2018 Instruction Type:Patient Education Patient Instructions Indication:Nonsmoker Start:23-Mar-2018 Instruction Type:Provider Instructions for Treatment How to access health informa tion online Indication:Diarrhea Start:04-Dec-2017 Instruction Type:Patient Education How to access health informa tion online - Detail Indication:Diarrhea Start:04-Dec-2017 Instruction Type:Patient Education Patient Instructions Indication:Diarrhea Start:04-Dec-2017 Instruction Type:Provider Instructions for Treatment How to access health informa tion online Indication:Diabetes mellitus type 2, uncontrolled (Renamed from Uncontrolled type 2 diabetes mellitus) Start:20-Nov-2017 Instruction Type:Patient Education How to access health informa tion online - Detail Indication:Diabetes mellitus type 2, uncontrolled (Renamed from Uncontrolled type 2 diabetes mellitus) Start:20-Nov-2017 Instruction Type:Patient Education Patient Instructions Indication:Diabetes mellitus type 2, uncontrolled (Renamed from Uncontrolled type 2 diabetes mellitus) Start:20-Nov-2017 Instruction Type:Provider Instructions for Treatment How to access health informa tion online Indication:Anxiety and depression Start:01-Sep-2017 Instruction Type:Patient Education How to access health informa tion online - Detail Indication:Anxiety and depression Start:01-Sep-2017 Instruction Type:Patient Education Patient Instructions Indication:Nonsmoker Start:01-Sep-2017 Instruction Type:Provider Instructions for Treatment Patient Instruction s Indication:Current smoker Start:11-Aug-2017 Instruction Type:Provider Instructions for Treatment How to access health informa tion online Indication:Current smoker Start:10-Aug-2017 Instruction Type:Patient Education How to access health informa tion online - Detail Indication:Current smoker Start:10-Aug-2017 Instruction Type:Patient Education Patient Instructions Indication:Post-nasal drainage Start:10-Aug-2017 Instruction Type:Provider Instructions for Treatment How to access health informa tion online Indication:Other abnormal glucose Start:14-May-2016 Instruction Type:Patient Education How to access health informa tion online - Detail Indication:Other abnormal glucose Start:14-May-2016 Instruction Type:Patient Education Patient Instructions Indication:Other abnormal glucose Start:14-May-2016 Instruction Type:Provider Instructions for Treatment How to access health informa tion online Indication:Other abnormal glucose Start:15-Jan-2016 Instruction Type:Patient Education How to access health informa tion online - Detail Indication:Other abnormal glucose Start:15-Jan-2016 Instruction Type:Patient Education Patient Instructions Indication:Other abnormal glucose Start:15-Jan-2016 Instruction Type:Provider Instructions for Treatment How to access health informa tion online Indication:Umbilical hernia Start:15-Oct-2015 Instruction Type:Patient Education How to access health informa tion online - Detail Indication:Umbilical hernia Start:15-Oct-2015 Instruction Type:Patient Education Patient Instructions Indication:Umbilical hernia Start:15-Oct-2015 Instruction Type:Provider Instructions for Treatment How to access health informa tion online Indication:Umbilical hernia Start:14-Sep-2015 Instruction Type:Patient Education How to access health informa tion online - Detail Indication:Umbilical hernia Start:14-Sep-2015 Instruction Type:Patient Education Patient Instructions Indication:Umbilical hernia Start:14-Sep-2015 Instruction Type:Provider Instructions for Treatment How to access health informa tion online Indication:Benign essential hypertension Start:16-Jul-2015 Instruction Type:Patient Education How to access health informa tion online - Detail Indication:Benign essential hypertension Start:16-Jul-2015 Instruction Type:Patient Education Patient Instructions Indication:Benign essential hypertension Start:16-Jul-2015 Instruction Type:Provider Instructions for Treatment How to access health informa tion online Indication:Syncope and collapse Start:04-Jun-2015 Instruction Type:Patient Education How to access health informa tion online - Detail Indication:Syncope and collapse Start:04-Jun-2015 Instruction Type:Patient Education Patient Instructions Indication:Syncope and collapse Start:04-Jun-2015 Instruction Type:Provider Instructions for Treatment Patient Instructions Indication:Knee Pain (Renamed from Gonalgia) Start:26-Mar-2015 Instruction Type:Provider Instructions for Treatment Patient Instructions Indication:Rash Start:21-Apr-2013 Instruction Type:Provider Instructions for Treatment Patient Instructions Indication:Anxiety and depression Start:15-Nov-2012 Instruction Type:Provider Instructions for Treatment Patient Instructions Indication:Benign essential hypertension Start:21-Oct-2012 Instruction Type:Provider Instructions for Treatment Patient Instructions Indication:Hypercholesterolemia Start:22-Jul-2012 Instruction Type:Provider Instructions for Treatment Sore throat: diagnosis and treatment Indication:Pharyngitis, acute Start:16-Dec-2006 Instruction Type:Patient Education Name Dates Details How to access health informa tion online Indication:Diabetes mellitus type 2, uncontrolled (Renamed from Uncontrolled type 2 diabetes mellitus) Start:06-Feb-2020 Instruction Type:Patient Education How to access health informa tion online - Detail Indication:Diabetes mellitus type 2, uncontrolled (Renamed from Uncontrolled type 2 diabetes mellitus) Start:06-Feb-2020 Instruction Type:Patient Education Patient Instructions Indication:Diabetes mellitus type 2, uncontrolled (Renamed from Uncontrolled type 2 diabetes mellitus) Start:06-Feb-2020 Instruction Type:Provider Instructions for Treatment Patient Instructions Indication:BMI 34.0-34.9,adult Start:04-Nov-2019 Instruction Type:Provider Instructions for Treatment How to access health informa tion online Indication:Diabetes mellitus type 2, uncontrolled (Renamed from Uncontrolled type 2 diabetes mellitus) Start:04-Nov-2019 Instruction Type:Patient Education How to access health informa tion online - Detail Indication:Diabetes mellitus type 2, uncontrolled (Renamed from Uncontrolled type 2 diabetes mellitus) Start:04-Nov-2019 Instruction Type:Patient Education Patient Instructions Indication:Diabetes mellitus type 2, uncontrolled (Renamed from Uncontrolled type 2 diabetes mellitus) Start:04-Nov-2019 Instruction Type:Provider Instructions for Treatment How to access health informa tion online Indication:Current smoker Start:23-Aug-2019 Instruction Type:Patient Education How to access health informa tion online - Detail Indication:BMI 34.0-34.9,adult Start:23-Aug-2019 Instruction Type:Patient Education Patient Instructions Indication:Current smoker Start:23-Aug-2019 Instruction Type:Provider Instructions for Treatment How to access health informa tion online Indication:Flu-like symptoms Start:15-Aug-2019 Instruction Type:Patient Education How to access health informa tion online - Detail Indication:Flu-like symptoms Start:15-Aug-2019 Instruction Type:Patient Education Patient Instructions Indication:Flu-like symptoms Start:15-Aug-2019 Instruction Type:Provider Instructions for Treatment How to access health informa tion online Indication:Nonsmoker Start:12-Jul-2019 Instruction Type:Patient Education How to access health informa tion online - Detail Indication:Nonsmoker Start:12-Jul-2019 Instruction Type:Patient Education Patient Instructions Indication:Nonsmoker Start:12-Jul-2019 Instruction Type:Provider Instructions for Treatment How to access health informa tion online Indication:Nonsmoker Start:05-Jul-2019 Instruction Type:Patient Education How to access health informa tion online - Detail Indication:Nonsmoker Start:05-Jul-2019 Instruction Type:Patient Education Patient Instructions Indication:Nonsmoker Start:05-Jul-2019 Instruction Type:Provider Instructions for Treatment How to access health informa tion online Indication:Nonsmoker Start:20-Jul-2018 Instruction Type:Patient Education How to access health informa tion online - Detail Indication:Nonsmoker Start:20-Jul-2018 Instruction Type:Patient Education Patient Instructions Indication:Nonsmoker Start:20-Jul-2018 Instruction Type:Provider Instructions for Treatment How to access health informa tion online Indication:Nonsmoker Start:23-Mar-2018 Instruction Type:Patient Education How to access health informa tion online - Detail Indication:Nonsmoker Start:23-Mar-2018 Instruction Type:Patient Education Patient Instructions Indication:Nonsmoker Start:23-Mar-2018 Instruction Type:Provider Instructions for Treatment How to access health informa tion online Indication:Diarrhea Start:04-Dec-2017 Instruction Type:Patient Education How to access health informa tion online - Detail Indication:Diarrhea Start:04-Dec-2017 Instruction Type:Patient Education Patient Instructions Indication:Diarrhea Start:04-Dec-2017 Instruction Type:Provider Instructions for Treatment How to access health informa tion online Indication:Diabetes mellitus type 2, uncontrolled (Renamed from Uncontrolled type 2 diabetes mellitus) Start:20-Nov-2017 Instruction Type:Patient Education How to access health informa tion online - Detail Indication:Diabetes mellitus type 2, uncontrolled (Renamed from Uncontrolled type 2 diabetes mellitus) Start:20-Nov-2017 Instruction Type:Patient Education Patient Instructions Indication:Diabetes mellitus type 2, uncontrolled (Renamed from Uncontrolled type 2 diabetes mellitus) Start:20-Nov-2017 Instruction Type:Provider Instructions for Treatment How to access health informa tion online Indication:Anxiety and depression Start:01-Sep-2017 Instruction Type:Patient Education How to access health informa tion online - Detail Indication:Anxiety and depression Start:01-Sep-2017 Instruction Type:Patient Education Patient Instructions Indication:Nonsmoker Start:01-Sep-2017 Instruction Type:Provider Instructions for Treatment Patient Instruction s Indication:Current smoker Start:11-Aug-2017 Instruction Type:Provider Instructions for Treatment How to access health informa tion online Indication:Current smoker Start:10-Aug-2017 Instruction Type:Patient Education How to access health informa tion online - Detail Indication:Current smoker Start:10-Aug-2017 Instruction Type:Patient Education Patient Instructions Indication:Post-nasal drainage Start:10-Aug-2017 Instruction Type:Provider Instructions for Treatment How to access health informa tion online Indication:Other abnormal glucose Start:14-May-2016 Instruction Type:Patient Education How to access health informa tion online - Detail Indication:Other abnormal glucose Start:14-May-2016 Instruction Type:Patient Education Patient Instructions Indication:Other abnormal glucose Start:14-May-2016 Instruction Type:Provider Instructions for Treatment How to access health informa tion online Indication:Other abnormal glucose Start:15-Jan-2016 Instruction Type:Patient Education How to access health informa tion online - Detail Indication:Other abnormal glucose Start:15-Jan-2016 Instruction Type:Patient Education Patient Instructions Indication:Other abnormal glucose Start:15-Jan-2016 Instruction Type:Provider Instructions for Treatment How to access health informa tion online Indication:Umbilical hernia Start:15-Oct-2015 Instruction Type:Patient Education How to access health informa tion online - Detail Indication:Umbilical hernia Start:15-Oct-2015 Instruction Type:Patient Education Patient Instructions Indication:Umbilical hernia Start:15-Oct-2015 Instruction Type:Provider Instructions for Treatment How to access health informa tion online Indication:Umbilical hernia Start:14-Sep-2015 Instruction Type:Patient Education How to access health informa tion online - Detail Indication:Umbilical hernia Start:14-Sep-2015 Instruction Type:Patient Education Patient Instructions Indication:Umbilical hernia Start:14-Sep-2015 Instruction Type:Provider Instructions for Treatment How to access health informa tion online Indication:Benign essential hypertension Start:16-Jul-2015 Instruction Type:Patient Education How to access health informa tion online - Detail Indication:Benign essential hypertension Start:16-Jul-2015 Instruction Type:Patient Education Patient Instructions Indication:Benign essential hypertension Start:16-Jul-2015 Instruction Type:Provider Instructions for Treatment How to access health informa tion online Indication:Syncope and collapse Start:04-Jun-2015 Instruction Type:Patient Education How to access health informa tion online - Detail Indication:Syncope and collapse Start:04-Jun-2015 Instruction Type:Patient Education Patient Instructions Indication:Syncope and collapse Start:04-Jun-2015 Instruction Type:Provider Instructions for Treatment Patient Instructions Indication:Knee Pain (Renamed from Gonalgia) Start:26-Mar-2015 Instruction Type:Provider Instructions for Treatment Patient Instructions Indication:Rash Start:21-Apr-2013 Instruction Type:Provider Instructions for Treatment Patient Instructions Indication:Anxiety and depression Start:15-Nov-2012 Instruction Type:Provider Instructions for Treatment Patient Instructions Indication:Benign essential hypertension Start:21-Oct-2012 Instruction Type:Provider Instructions for Treatment Patient Instructions Indication:Hypercholesterolemia Start:22-Jul-2012 Instruction Type:Provider Instructions for Treatment Sore throat: diagnosis and treatment Indication:Pharyngitis, acute Start:16-Dec-2006 Instruction Type:Patient Education Name Dates Details How to access health informa tion online - Detail Indication:BMI 34.0-34.9,adult Start:15-Feb-2020 Instruction Type:Patient Education Patient Instructions Indication:BMI 34.0-34.9,adult Start:15-Feb-2020 Instruction Type:Provider Instructions for Treatment How to access health informa tion online Indication:Diabetes mellitus type 2, uncontrolled (Renamed from Uncontrolled type 2 diabetes mellitus) Start:06-Feb-2020 Instruction Type:Patient Education How to access health informa tion online - Detail Indication:Diabetes mellitus type 2, uncontrolled (Renamed from Uncontrolled type 2 diabetes mellitus) Start:06-Feb-2020 Instruction Type:Patient Education Patient Instructions Indication:Diabetes mellitus type 2, uncontrolled (Renamed from Uncontrolled type 2 diabetes mellitus) Start:06-Feb-2020 Instruction Type:Provider Instructions for Treatment Patient Instructions Indication:BMI 34.0-34.9,adult Start:04-Nov-2019 Instruction Type:Provider Instructions for Treatment How to access health informa tion online Indication:Diabetes mellitus type 2, uncontrolled (Renamed from Uncontrolled type 2 diabetes mellitus) Start:04-Nov-2019 Instruction Type:Patient Education How to access health informa tion online - Detail Indication:Diabetes mellitus type 2, uncontrolled (Renamed from Uncontrolled type 2 diabetes mellitus) Start:04-Nov-2019 Instruction Type:Patient Education Patient Instructions Indication:Diabetes mellitus type 2, uncontrolled (Renamed from Uncontrolled type 2 diabetes mellitus) Start:04-Nov-2019 Instruction Type:Provider Instructions for Treatment How to access health informa tion online Indication:Current smoker Start:23-Aug-2019 Instruction Type:Patient Education How to access health informa tion online - Detail Indication:BMI 34.0-34.9,adult Start:23-Aug-2019 Instruction Type:Patient Education Patient Instructions Indication:Current smoker Start:23-Aug-2019 Instruction Type:Provider Instructions for Treatment How to access health informa tion online Indication:Flu-like symptoms Start:15-Aug-2019 Instruction Type:Patient Education How to access health informa tion online - Detail Indication:Flu-like symptoms Start:15-Aug-2019 Instruction Type:Patient Education Patient Instructions Indication:Flu-like symptoms Start:15-Aug-2019 Instruction Type:Provider Instructions for Treatment How to access health informa tion online Indication:Nonsmoker Start:12-Jul-2019 Instruction Type:Patient Education How to access health informa tion online - Detail Indication:Nonsmoker Start:12-Jul-2019 Instruction Type:Patient Education Patient Instructions Indication:Nonsmoker Start:12-Jul-2019 Instruction Type:Provider Instructions for Treatment How to access health informa tion online Indication:Nonsmoker Start:05-Jul-2019 Instruction Type:Patient Education How to access health informa tion online - Detail Indication:Nonsmoker Start:05-Jul-2019 Instruction Type:Patient Education Patient Instructions Indication:Nonsmoker Start:05-Jul-2019 Instruction Type:Provider Instructions for Treatment How to access health informa tion online Indication:Nonsmoker Start:20-Jul-2018 Instruction Type:Patient Education How to access health informa tion online - Detail Indication:Nonsmoker Start:20-Jul-2018 Instruction Type:Patient Education Patient Instructions Indication:Nonsmoker Start:20-Jul-2018 Instruction Type:Provider Instructions for Treatment How to access health informa tion online Indication:Nonsmoker Start:23-Mar-2018 Instruction Type:Patient Education How to access health informa tion online - Detail Indication:Nonsmoker Start:23-Mar-2018 Instruction Type:Patient Education Patient Instructions Indication:Nonsmoker Start:23-Mar-2018 Instruction Type:Provider Instructions for Treatment How to access health informa tion online Indication:Diarrhea Start:04-Dec-2017 Instruction Type:Patient Education How to access health informa tion online - Detail Indication:Diarrhea Start:04-Dec-2017 Instruction Type:Patient Education Patient Instructions Indication:Diarrhea Start:04-Dec-2017 Instruction Type:Provider Instructions for Treatment How to access health informa tion online Indication:Diabetes mellitus type 2, uncontrolled (Renamed from Uncontrolled type 2 diabetes mellitus) Start:20-Nov-2017 Instruction Type:Patient Education How to access health informa tion online - Detail Indication:Diabetes mellitus type 2, uncontrolled (Renamed from Uncontrolled type 2 diabetes mellitus) Start:20-Nov-2017 Instruction Type:Patient Education Patient Instructions Indication:Diabetes mellitus type 2, uncontrolled (Renamed from Uncontrolled type 2 diabetes mellitus) Start:20-Nov-2017 Instruction Type:Provider Instructions for Treatment How to access health informa tion online Indication:Anxiety and depression Start:01-Sep-2017 Instruction Type:Patient Education How to access health informa tion online - Detail Indication:Anxiety and depression Start:01-Sep-2017 Instruction Type:Patient Education Patient Instructions Indication:Nonsmoker Start:01-Sep-2017 Instruction Type:Provider Instructions for Treatment Patient Instruction s Indication:Current smoker Start:11-Aug-2017 Instruction Type:Provider Instructions for Treatment How to access health informa tion online Indication:Current smoker Start:10-Aug-2017 Instruction Type:Patient Education How to access health informa tion online - Detail Indication:Current smoker Start:10-Aug-2017 Instruction Type:Patient Education Patient Instructions Indication:Post-nasal drainage Start:10-Aug-2017 Instruction Type:Provider Instructions for Treatment How to access health informa tion online Indication:Other abnormal glucose Start:14-May-2016 Instruction Type:Patient Education How to access health informa tion online - Detail Indication:Other abnormal glucose Start:14-May-2016 Instruction Type:Patient Education Patient Instructions Indication:Other abnormal glucose Start:14-May-2016 Instruction Type:Provider Instructions for Treatment How to access health informa tion online Indication:Other abnormal glucose Start:15-Jan-2016 Instruction Type:Patient Education How to access health informa tion online - Detail Indication:Other abnormal glucose Start:15-Jan-2016 Instruction Type:Patient Education Patient Instructions Indication:Other abnormal glucose Start:15-Jan-2016 Instruction Type:Provider Instructions for Treatment How to access health informa tion online Indication:Umbilical hernia Start:15-Oct-2015 Instruction Type:Patient Education How to access health informa tion online - Detail Indication:Umbilical hernia Start:15-Oct-2015 Instruction Type:Patient Education Patient Instructions Indication:Umbilical hernia Start:15-Oct-2015 Instruction Type:Provider Instructions for Treatment How to access health informa tion online Indication:Umbilical hernia Start:14-Sep-2015 Instruction Type:Patient Education How to access health informa tion online - Detail Indication:Umbilical hernia Start:14-Sep-2015 Instruction Type:Patient Education Patient Instructions Indication:Umbilical hernia Start:14-Sep-2015 Instruction Type:Provider Instructions for Treatment How to access health informa tion online Indication:Benign essential hypertension Start:16-Jul-2015 Instruction Type:Patient Education How to access health informa tion online - Detail Indication:Benign essential hypertension Start:16-Jul-2015 Instruction Type:Patient Education Patient Instructions Indication:Benign essential hypertension Start:16-Jul-2015 Instruction Type:Provider Instructions for Treatment How to access health informa tion online Indication:Syncope and collapse Start:04-Jun-2015 Instruction Type:Patient Education How to access health informa tion online - Detail Indication:Syncope and collapse Start:04-Jun-2015 Instruction Type:Patient Education Patient Instructions Indication:Syncope and collapse Start:04-Jun-2015 Instruction Type:Provider Instructions for Treatment Patient Instructions Indication:Knee Pain (Renamed from Gonalgia) Start:26-Mar-2015 Instruction Type:Provider Instructions for Treatment Patient Instructions Indication:Rash Start:21-Apr-2013 Instruction Type:Provider Instructions for Treatment Patient Instructions Indication:Anxiety and depression Start:15-Nov-2012 Instruction Type:Provider Instructions for Treatment Patient Instructions Indication:Benign essential hypertension Start:21-Oct-2012 Instruction Type:Provider Instructions for Treatment Patient Instructions Indication:Hypercholesterolemia Start:22-Jul-2012 Instruction Type:Provider Instructions for Treatment Sore throat: diagnosis and treatment Indication:Pharyngitis, acute Start:16-Dec-2006 Instruction Type:Patient Education Name Dates Details Patient Instructions come in fasting in August a week before your next apt. Indication:BMI 34.0-34.9,adult Start:21-May-2020 Instruction Type:Provider Instructions for Treatment How to Access Health Informa tion Online using Patient Portal and [employer]rd [employer] Apps Indication:BMI 34.0-34.9,adult Start:21-May-2020 Instruction Type:Patient Education How to access health informa tion online - Detail Indication:BMI 34.0-34.9,adult Start:15-Feb-2020 Instruction Type:Patient Education Patient Instructions Indication:BMI 34.0-34.9,adult Start:15-Feb-2020 Instruction Type:Provider Instructions for Treatment How to access health informa tion online Indication:Diabetes mellitus type 2, uncontrolled (Renamed from Uncontrolled type 2 diabetes mellitus) Start:06-Feb-2020 Instruction Type:Patient Education How to access health informa tion online - Detail Indication:Diabetes mellitus type 2, uncontrolled (Renamed from Uncontrolled type 2 diabetes mellitus) Start:06-Feb-2020 Instruction Type:Patient Education Patient Instructions Indication:Diabetes mellitus type 2, uncontrolled (Renamed from Uncontrolled type 2 diabetes mellitus) Start:06-Feb-2020 Instruction Type:Provider Instructions for Treatment Patient Instructions Indication:BMI 34.0-34.9,adult Start:04-Nov-2019 Instruction Type:Provider Instructions for Treatment How to access health informa tion online Indication:Diabetes mellitus type 2, uncontrolled (Renamed from Uncontrolled type 2 diabetes mellitus) Start:04-Nov-2019 Instruction Type:Patient Education How to access health informa tion online - Detail Indication:Diabetes mellitus type 2, uncontrolled (Renamed from Uncontrolled type 2 diabetes mellitus) Start:04-Nov-2019 Instruction Type:Patient Education Patient Instructions Indication:Diabetes mellitus type 2, uncontrolled (Renamed from Uncontrolled type 2 diabetes mellitus) Start:04-Nov-2019 Instruction Type:Provider Instructions for Treatment How to access health informa tion online Indication:Current smoker Start:23-Aug-2019 Instruction Type:Patient Education How to access health informa tion online - Detail Indication:BMI 34.0-34.9,adult Start:23-Aug-2019 Instruction Type:Patient Education Patient Instructions Indication:Current smoker Start:23-Aug-2019 Instruction Type:Provider Instructions for Treatment How to access health informa tion online Indication:Flu-like symptoms Start:15-Aug-2019 Instruction Type:Patient Education How to access health informa tion online - Detail Indication:Flu-like symptoms Start:15-Aug-2019 Instruction Type:Patient Education Patient Instructions Indication:Flu-like symptoms Start:15-Aug-2019 Instruction Type:Provider Instructions for Treatment How to access health informa tion online Indication:Nonsmoker Start:12-Jul-2019 Instruction Type:Patient Education How to access health informa tion online - Detail Indication:Nonsmoker Start:12-Jul-2019 Instruction Type:Patient Education Patient Instructions Indication:Nonsmoker Start:12-Jul-2019 Instruction Type:Provider Instructions for Treatment How to access health informa tion online Indication:Nonsmoker Start:05-Jul-2019 Instruction Type:Patient Education How to access health informa tion online - Detail Indication:Nonsmoker Start:05-Jul-2019 Instruction Type:Patient Education Patient Instructions Indication:Nonsmoker Start:05-Jul-2019 Instruction Type:Provider Instructions for Treatment How to access health informa tion online Indication:Nonsmoker Start:20-Jul-2018 Instruction Type:Patient Education How to access health informa tion online - Detail Indication:Nonsmoker Start:20-Jul-2018 Instruction Type:Patient Education Patient Instructions Indication:Nonsmoker Start:20-Jul-2018 Instruction Type:Provider Instructions for Treatment How to access health informa tion online Indication:Nonsmoker Start:23-Mar-2018 Instruction Type:Patient Education How to access health informa tion online - Detail Indication:Nonsmoker Start:23-Mar-2018 Instruction Type:Patient Education Patient Instructions Indication:Nonsmoker Start:23-Mar-2018 Instruction Type:Provider Instructions for Treatment How to access health informa tion online Indication:Diarrhea Start:04-Dec-2017 Instruction Type:Patient Education How to access health informa tion online - Detail Indication:Diarrhea Start:04-Dec-2017 Instruction Type:Patient Education Patient Instructions Indication:Diarrhea Start:04-Dec-2017 Instruction Type:Provider Instructions for Treatment How to access health informa tion online Indication:Diabetes mellitus type 2, uncontrolled (Renamed from Uncontrolled type 2 diabetes mellitus) Start:20-Nov-2017 Instruction Type:Patient Education How to access health informa tion online - Detail Indication:Diabetes mellitus type 2, uncontrolled (Renamed from Uncontrolled type 2 diabetes mellitus) Start:20-Nov-2017 Instruction Type:Patient Education Patient Instructions Indication:Diabetes mellitus type 2, uncontrolled (Renamed from Uncontrolled type 2 diabetes mellitus) Start:20-Nov-2017 Instruction Type:Provider Instructions for Treatment How to access health informa tion online Indication:Anxiety and depression Start:01-Sep-2017 Instruction Type:Patient Education How to access health informa tion online - Detail Indication:Anxiety and depression Start:01-Sep-2017 Instruction Type:Patient Education Patient Instructions Indication:Nonsmoker Start:01-Sep-2017 Instruction Type:Provider Instructions for Treatment Patient Instruction s Indication:Current smoker Start:11-Aug-2017 Instruction Type:Provider Instructions for Treatment How to access health informa tion online Indication:Current smoker Start:10-Aug-2017 Instruction Type:Patient Education How to access health informa tion online - Detail Indication:Current smoker Start:10-Aug-2017 Instruction Type:Patient Education Patient Instructions Indication:Post-nasal drainage Start:10-Aug-2017 Instruction Type:Provider Instructions for Treatment How to access health informa tion online Indication:Other abnormal glucose Start:14-May-2016 Instruction Type:Patient Education How to access health informa tion online - Detail Indication:Other abnormal glucose Start:14-May-2016 Instruction Type:Patient Education Patient Instructions Indication:Other abnormal glucose Start:14-May-2016 Instruction Type:Provider Instructions for Treatment How to access health informa tion online Indication:Other abnormal glucose Start:15-Jan-2016 Instruction Type:Patient Education How to access health informa tion online - Detail Indication:Other abnormal glucose Start:15-Jan-2016 Instruction Type:Patient Education Patient Instructions Indication:Other abnormal glucose Start:15-Jan-2016 Instruction Type:Provider Instructions for Treatment How to access health informa tion online Indication:Umbilical hernia Start:15-Oct-2015 Instruction Type:Patient Education How to access health informa tion online - Detail Indication:Umbilical hernia Start:15-Oct-2015 Instruction Type:Patient Education Patient Instructions Indication:Umbilical hernia Start:15-Oct-2015 Instruction Type:Provider Instructions for Treatment How to access health informa tion online Indication:Umbilical hernia Start:14-Sep-2015 Instruction Type:Patient Education How to access health informa tion online - Detail Indication:Umbilical hernia Start:14-Sep-2015 Instruction Type:Patient Education Patient Instructions Indication:Umbilical hernia Start:14-Sep-2015 Instruction Type:Provider Instructions for Treatment How to access health informa tion online Indication:Benign essential hypertension Start:16-Jul-2015 Instruction Type:Patient Education How to access health informa tion online - Detail Indication:Benign essential hypertension Start:16-Jul-2015 Instruction Type:Patient Education Patient Instructions Indication:Benign essential hypertension Start:16-Jul-2015 Instruction Type:Provider Instructions for Treatment How to access health informa tion online Indication:Syncope and collapse Start:04-Jun-2015 Instruction Type:Patient Education How to access health informa tion online - Detail Indication:Syncope and collapse Start:04-Jun-2015 Instruction Type:Patient Education Patient Instructions Indication:Syncope and collapse Start:04-Jun-2015 Instruction Type:Provider Instructions for Treatment Patient Instructions Indication:Knee Pain (Renamed from Gonalgia) Start:26-Mar-2015 Instruction Type:Provider Instructions for Treatment Patient Instructions Indication:Rash Start:21-Apr-2013 Instruction Type:Provider Instructions for Treatment Patient Instructions Indication:Anxiety and depression Start:15-Nov-2012 Instruction Type:Provider Instructions for Treatment Patient Instructions Indication:Benign essential hypertension Start:21-Oct-2012 Instruction Type:Provider Instructions for Treatment Patient Instructions Indication:Hypercholesterolemia Start:22-Jul-2012 Instruction Type:Provider Instructions for Treatment Sore throat: diagnosis and treatment Indication:Pharyngitis, acute Start:16-Dec-2006 Instruction Type:Patient Education Name Dates Details Patient Instructions Indication:BMI 35.0-35.9,adult Start:19-Sep-2020 Instruction Type:Provider Instructions for Treatment How to Access Health Informa tion Online using Patient Portal and [employer]rd [employer] Apps Indication:Diabetes mellitus type 2, uncontrolled (Renamed from Uncontrolled type 2 diabetes mellitus) Start:19-Sep-2020 Instruction Type:Patient Education Patient Instructions come in fasting in August a week before your next apt. Indication:BMI 34.0-34.9,adult Start:21-May-2020 Instruction Type:Provider Instructions for Treatment How to Access Health Informa tion Online using Patient Portal and [employer]rd [employer] Apps Indication:BMI 34.0-34.9,adult Start:21-May-2020 Instruction Type:Patient Education How to access health informa tion online - Detail Indication:BMI 34.0-34.9,adult Start:15-Feb-2020 Instruction Type:Patient Education Patient Instructions Indication:BMI 34.0-34.9,adult Start:15-Feb-2020 Instruction Type:Provider Instructions for Treatment How to access health informa tion online Indication:Diabetes mellitus type 2, uncontrolled (Renamed from Uncontrolled type 2 diabetes mellitus) Start:06-Feb-2020 Instruction Type:Patient Education How to access health informa tion online - Detail Indication:Diabetes mellitus type 2, uncontrolled (Renamed from Uncontrolled type 2 diabetes mellitus) Start:06-Feb-2020 Instruction Type:Patient Education Patient Instructions Indication:Diabetes mellitus type 2, uncontrolled (Renamed from Uncontrolled type 2 diabetes mellitus) Start:06-Feb-2020 Instruction Type:Provider Instructions for Treatment Patient Instructions Indication:BMI 34.0-34.9,adult Start:04-Nov-2019 Instruction Type:Provider Instructions for Treatment How to access health informa tion online Indication:Diabetes mellitus type 2, uncontrolled (Renamed from Uncontrolled type 2 diabetes mellitus) Start:04-Nov-2019 Instruction Type:Patient Education How to access health informa tion online - Detail Indication:Diabetes mellitus type 2, uncontrolled (Renamed from Uncontrolled type 2 diabetes mellitus) Start:04-Nov-2019 Instruction Type:Patient Education Patient Instructions Indication:Diabetes mellitus type 2, uncontrolled (Renamed from Uncontrolled type 2 diabetes mellitus) Start:04-Nov-2019 Instruction Type:Provider Instructions for Treatment How to access health informa tion online Indication:Current smoker Start:23-Aug-2019 Instruction Type:Patient Education How to access health informa tion online - Detail Indication:BMI 34.0-34.9,adult Start:23-Aug-2019 Instruction Type:Patient Education Patient Instructions Indication:Current smoker Start:23-Aug-2019 Instruction Type:Provider Instructions for Treatment How to access health informa tion online Indication:Flu-like symptoms Start:15-Aug-2019 Instruction Type:Patient Education How to access health informa tion online - Detail Indication:Flu-like symptoms Start:15-Aug-2019 Instruction Type:Patient Education Patient Instructions Indication:Flu-like symptoms Start:15-Aug-2019 Instruction Type:Provider Instructions for Treatment How to access health informa tion online Indication:Nonsmoker Start:12-Jul-2019 Instruction Type:Patient Education How to access health informa tion online - Detail Indication:Nonsmoker Start:12-Jul-2019 Instruction Type:Patient Education Patient Instructions Indication:Nonsmoker Start:12-Jul-2019 Instruction Type:Provider Instructions for Treatment How to access health informa tion online Indication:Nonsmoker Start:05-Jul-2019 Instruction Type:Patient Education How to access health informa tion online - Detail Indication:Nonsmoker Start:05-Jul-2019 Instruction Type:Patient Education Patient Instructions Indication:Nonsmoker Start:05-Jul-2019 Instruction Type:Provider Instructions for Treatment How to access health informa tion online Indication:Nonsmoker Start:20-Jul-2018 Instruction Type:Patient Education How to access health informa tion online - Detail Indication:Nonsmoker Start:20-Jul-2018 Instruction Type:Patient Education Patient Instructions Indication:Nonsmoker Start:20-Jul-2018 Instruction Type:Provider Instructions for Treatment How to access health informa tion online Indication:Nonsmoker Start:23-Mar-2018 Instruction Type:Patient Education How to access health informa tion online - Detail Indication:Nonsmoker Start:23-Mar-2018 Instruction Type:Patient Education Patient Instructions Indication:Nonsmoker Start:23-Mar-2018 Instruction Type:Provider Instructions for Treatment How to access health informa tion online Indication:Diarrhea Start:04-Dec-2017 Instruction Type:Patient Education How to access health informa tion online - Detail Indication:Diarrhea Start:04-Dec-2017 Instruction Type:Patient Education Patient Instructions Indication:Diarrhea Start:04-Dec-2017 Instruction Type:Provider Instructions for Treatment How to access health informa tion online Indication:Diabetes mellitus type 2, uncontrolled (Renamed from Uncontrolled type 2 diabetes mellitus) Start:20-Nov-2017 Instruction Type:Patient Education How to access health informa tion online - Detail Indication:Diabetes mellitus type 2, uncontrolled (Renamed from Uncontrolled type 2 diabetes mellitus) Start:20-Nov-2017 Instruction Type:Patient Education Patient Instructions Indication:Diabetes mellitus type 2, uncontrolled (Renamed from Uncontrolled type 2 diabetes mellitus) Start:20-Nov-2017 Instruction Type:Provider Instructions for Treatment How to access health informa tion online Indication:Anxiety and depression Start:01-Sep-2017 Instruction Type:Patient Education How to access health informa tion online - Detail Indication:Anxiety and depression Start:01-Sep-2017 Instruction Type:Patient Education Patient Instructions Indication:Nonsmoker Start:01-Sep-2017 Instruction Type:Provider Instructions for Treatment Patient Instruction s Indication:Current smoker Start:11-Aug-2017 Instruction Type:Provider Instructions for Treatment How to access health informa tion online Indication:Current smoker Start:10-Aug-2017 Instruction Type:Patient Education How to access health informa tion online - Detail Indication:Current smoker Start:10-Aug-2017 Instruction Type:Patient Education Patient Instructions Indication:Post-nasal drainage Start:10-Aug-2017 Instruction Type:Provider Instructions for Treatment How to access health informa tion online Indication:Other abnormal glucose Start:14-May-2016 Instruction Type:Patient Education How to access health informa tion online - Detail Indication:Other abnormal glucose Start:14-May-2016 Instruction Type:Patient Education Patient Instructions Indication:Other abnormal glucose Start:14-May-2016 Instruction Type:Provider Instructions for Treatment How to access health informa tion online Indication:Other abnormal glucose Start:15-Jan-2016 Instruction Type:Patient Education How to access health informa tion online - Detail Indication:Other abnormal glucose Start:15-Jan-2016 Instruction Type:Patient Education Patient Instructions Indication:Other abnormal glucose Start:15-Jan-2016 Instruction Type:Provider Instructions for Treatment How to access health informa tion online Indication:Umbilical hernia Start:15-Oct-2015 Instruction Type:Patient Education How to access health informa tion online - Detail Indication:Umbilical hernia Start:15-Oct-2015 Instruction Type:Patient Education Patient Instructions Indication:Umbilical hernia Start:15-Oct-2015 Instruction Type:Provider Instructions for Treatment How to access health informa tion online Indication:Umbilical hernia Start:14-Sep-2015 Instruction Type:Patient Education How to access health informa tion online - Detail Indication:Umbilical hernia Start:14-Sep-2015 Instruction Type:Patient Education Patient Instructions Indication:Umbilical hernia Start:14-Sep-2015 Instruction Type:Provider Instructions for Treatment How to access health informa tion online Indication:Benign essential hypertension Start:16-Jul-2015 Instruction Type:Patient Education How to access health informa tion online - Detail Indication:Benign essential hypertension Start:16-Jul-2015 Instruction Type:Patient Education Patient Instructions Indication:Benign essential hypertension Start:16-Jul-2015 Instruction Type:Provider Instructions for Treatment How to access health informa tion online Indication:Syncope and collapse Start:04-Jun-2015 Instruction Type:Patient Education How to access health informa tion online - Detail Indication:Syncope and collapse Start:04-Jun-2015 Instruction Type:Patient Education Patient Instructions Indication:Syncope and collapse Start:04-Jun-2015 Instruction Type:Provider Instructions for Treatment Patient Instructions Indication:Knee Pain (Renamed from Gonalgia) Start:26-Mar-2015 Instruction Type:Provider Instructions for Treatment Patient Instructions Indication:Rash Start:21-Apr-2013 Instruction Type:Provider Instructions for Treatment Patient Instructions Indication:Anxiety and depression Start:15-Nov-2012 Instruction Type:Provider Instructions for Treatment Patient Instructions Indication:Benign essential hypertension Start:21-Oct-2012 Instruction Type:Provider Instructions for Treatment Patient Instructions Indication:Hypercholesterolemia Start:22-Jul-2012 Instruction Type:Provider Instructions for Treatment Sore throat: diagnosis and treatment Indication:Pharyngitis, acute Start:16-Dec-2006 Instruction Type:Patient Education Name Dates Details Patient Instructions Indication:BMI 35.0-35.9,adult Start:19-Sep-2020 Instruction Type:Provider Instructions for Treatment How to Access Health Informa tion Online using Patient Portal and 3rd [employer] Party Apps Indication:Diabetes mellitus type 2, uncontrolled (Renamed from Uncontrolled type 2 diabetes mellitus) Start:19-Sep-2020 Instruction Type:Patient Education Patient Instructions come in fasting in August a week before your next apt. Indication:BMI 34.0-34.9,adult Start:21-May-2020 Instruction Type:Provider Instructions for Treatment How to Access Health Informa tion Online using Patient Portal and 3rd [employer] Party Apps Indication:BMI 34.0-34.9,adult Start:21-May-2020 Instruction Type:Patient Education How to access health informa tion online - Detail Indication:BMI 34.0-34.9,adult Start:15-Feb-2020 Instruction Type:Patient Education Patient Instructions Indication:BMI 34.0-34.9,adult Start:15-Feb-2020 Instruction Type:Provider Instructions for Treatment How to access health informa tion online Indication:Diabetes mellitus type 2, uncontrolled (Renamed from Uncontrolled type 2 diabetes mellitus) Start:06-Feb-2020 Instruction Type:Patient Education How to access health informa tion online - Detail Indication:Diabetes mellitus type 2, uncontrolled (Renamed from Uncontrolled type 2 diabetes mellitus) Start:06-Feb-2020 Instruction Type:Patient Education Patient Instructions Indication:Diabetes mellitus type 2, uncontrolled (Renamed from Uncontrolled type 2 diabetes mellitus) Start:06-Feb-2020 Instruction Type:Provider Instructions for Treatment Patient Instructions Indication:BMI 34.0-34.9,adult Start:04-Nov-2019 Instruction Type:Provider Instructions for Treatment How to access health informa tion online Indication:Diabetes mellitus type 2, uncontrolled (Renamed from Uncontrolled type 2 diabetes mellitus) Start:04-Nov-2019 Instruction Type:Patient Education How to access health informa tion online - Detail Indication:Diabetes mellitus type 2, uncontrolled (Renamed from Uncontrolled type 2 diabetes mellitus) Start:04-Nov-2019 Instruction Type:Patient Education Patient Instructions Indication:Diabetes mellitus type 2, uncontrolled (Renamed from Uncontrolled type 2 diabetes mellitus) Start:04-Nov-2019 Instruction Type:Provider Instructions for Treatment How to access health informa tion online Indication:Current smoker Start:23-Aug-2019 Instruction Type:Patient Education How to access health informa tion online - Detail Indication:BMI 34.0-34.9,adult Start:23-Aug-2019 Instruction Type:Patient Education Patient Instructions Indication:Current smoker Start:23-Aug-2019 Instruction Type:Provider Instructions for Treatment How to access health informa tion online Indication:Flu-like symptoms Start:15-Aug-2019 Instruction Type:Patient Education How to access health informa tion online - Detail Indication:Flu-like symptoms Start:15-Aug-2019 Instruction Type:Patient Education Patient Instructions Indication:Flu-like symptoms Start:15-Aug-2019 Instruction Type:Provider Instructions for Treatment How to access health informa tion online Indication:Nonsmoker Start:12-Jul-2019 Instruction Type:Patient Education How to access health informa tion online - Detail Indication:Nonsmoker Start:12-Jul-2019 Instruction Type:Patient Education Patient Instructions Indication:Nonsmoker Start:12-Jul-2019 Instruction Type:Provider Instructions for Treatment How to access health informa tion online Indication:Nonsmoker Start:05-Jul-2019 Instruction Type:Patient Education How to access health informa tion online - Detail Indication:Nonsmoker Start:05-Jul-2019 Instruction Type:Patient Education Patient Instructions Indication:Nonsmoker Start:05-Jul-2019 Instruction Type:Provider Instructions for Treatment How to access health informa tion online Indication:Nonsmoker Start:20-Jul-2018 Instruction Type:Patient Education How to access health informa tion online - Detail Indication:Nonsmoker Start:20-Jul-2018 Instruction Type:Patient Education Patient Instructions Indication:Nonsmoker Start:20-Jul-2018 Instruction Type:Provider Instructions for Treatment How to access health informa tion online Indication:Nonsmoker Start:23-Mar-2018 Instruction Type:Patient Education How to access health informa tion online - Detail Indication:Nonsmoker Start:23-Mar-2018 Instruction Type:Patient Education Patient Instructions Indication:Nonsmoker Start:23-Mar-2018 Instruction Type:Provider Instructions for Treatment How to access health informa tion online Indication:Diarrhea Start:04-Dec-2017 Instruction Type:Patient Education How to access health informa tion online - Detail Indication:Diarrhea Start:04-Dec-2017 Instruction Type:Patient Education Patient Instructions Indication:Diarrhea Start:04-Dec-2017 Instruction Type:Provider Instructions for Treatment How to access health informa tion online Indication:Diabetes mellitus type 2, uncontrolled (Renamed from Uncontrolled type 2 diabetes mellitus) Start:20-Nov-2017 Instruction Type:Patient Education How to access health informa tion online - Detail Indication:Diabetes mellitus type 2, uncontrolled (Renamed from Uncontrolled type 2 diabetes mellitus) Start:20-Nov-2017 Instruction Type:Patient Education Patient Instructions Indication:Diabetes mellitus type 2, uncontrolled (Renamed from Uncontrolled type 2 diabetes mellitus) Start:20-Nov-2017 Instruction Type:Provider Instructions for Treatment How to access health informa tion online Indication:Anxiety and depression Start:01-Sep-2017 Instruction Type:Patient Education How to access health informa tion online - Detail Indication:Anxiety and depression Start:01-Sep-2017 Instruction Type:Patient Education Patient Instructions Indication:Nonsmoker Start:01-Sep-2017 Instruction Type:Provider Instructions for Treatment Patient Instruction s Indication:Current smoker Start:11-Aug-2017 Instruction Type:Provider Instructions for Treatment How to access health informa tion online Indication:Current smoker Start:10-Aug-2017 Instruction Type:Patient Education How to access health informa tion online - Detail Indication:Current smoker Start:10-Aug-2017 Instruction Type:Patient Education Patient Instructions Indication:Post-nasal drainage Start:10-Aug-2017 Instruction Type:Provider Instructions for Treatment How to access health informa tion online Indication:Other abnormal glucose Start:14-May-2016 Instruction Type:Patient Education How to access health informa tion online - Detail Indication:Other abnormal glucose Start:14-May-2016 Instruction Type:Patient Education Patient Instructions Indication:Other abnormal glucose Start:14-May-2016 Instruction Type:Provider Instructions for Treatment How to access health informa tion online Indication:Other abnormal glucose Start:15-Jan-2016 Instruction Type:Patient Education How to access health informa tion online - Detail Indication:Other abnormal glucose Start:15-Jan-2016 Instruction Type:Patient Education Patient Instructions Indication:Other abnormal glucose Start:15-Jan-2016 Instruction Type:Provider Instructions for Treatment How to access health informa tion online Indication:Umbilical hernia Start:15-Oct-2015 Instruction Type:Patient Education How to access health informa tion online - Detail Indication:Umbilical hernia Start:15-Oct-2015 Instruction Type:Patient Education Patient Instructions Indication:Umbilical hernia Start:15-Oct-2015 Instruction Type:Provider Instructions for Treatment How to access health informa tion online Indication:Umbilical hernia Start:14-Sep-2015 Instruction Type:Patient Education How to access health informa tion online - Detail Indication:Umbilical hernia Start:14-Sep-2015 Instruction Type:Patient Education Patient Instructions Indication:Umbilical hernia Start:14-Sep-2015 Instruction Type:Provider Instructions for Treatment How to access health informa tion online Indication:Benign essential hypertension Start:16-Jul-2015 Instruction Type:Patient Education How to access health informa tion online - Detail Indication:Benign essential hypertension Start:16-Jul-2015 Instruction Type:Patient Education Patient Instructions Indication:Benign essential hypertension Start:16-Jul-2015 Instruction Type:Provider Instructions for Treatment How to access health informa tion online Indication:Syncope and collapse Start:04-Jun-2015 Instruction Type:Patient Education How to access health informa tion online - Detail Indication:Syncope and collapse Start:04-Jun-2015 Instruction Type:Patient Education Patient Instructions Indication:Syncope and collapse Start:04-Jun-2015 Instruction Type:Provider Instructions for Treatment Patient Instructions Indication:Knee Pain (Renamed from Gonalgia) Start:26-Mar-2015 Instruction Type:Provider Instructions for Treatment Patient Instructions Indication:Rash Start:21-Apr-2013 Instruction Type:Provider Instructions for Treatment Patient Instructions Indication:Anxiety and depression Start:15-Nov-2012 Instruction Type:Provider Instructions for Treatment Patient Instructions Indication:Benign essential hypertension Start:21-Oct-2012 Instruction Type:Provider Instructions for Treatment Patient Instructions Indication:Hypercholesterolemia Start:22-Jul-2012 Instruction Type:Provider Instructions for Treatment Sore throat: diagnosis and treatment Indication:Pharyngitis, acute Start:16-Dec-2006 Instruction Type:Patient Education Advance Directives No Advanced Directives Records Found Name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
[2025-04-22 16:44] LABS: SITE Not entered; VBG BASE EXCESS -4 mmol/L (-1.0-3.5); VBG PO2 29 mmHg (25-40); VBG SO2 53 % (50-70); VBG TCO2 22 mmol/L (23-33)
[2025-04-22 16:45] LABS: Hematocrit 41.8 % (40-54); Hemoglobin 15.0 g/dL (13.0-16.5); Immature Granulocytes Count 0.080 X10^3/uL (0.0-0.0); Mean Corp Hgb Conc 35.9 g/dL (32-36); Mean Corpuscular Volume 92.1 fL (80-94); Mean Platelet Vol. 11.3 fl (6.2-12.0); NRBC Flagged by Analyzer 0 % (0-5); POSITIVE DIFFERENTIAL YES; Platelet Count 251 K/mm3 (150-450); RBC Distribution Width CV 12.0 % (11.6-14.6); RBC Distribution Width SD 40.9 fl (35.1-43.9); Red Blood Count 4.54 M/mm3 (4.6-6.2); White Blood Count 15.2 K/mm3 (4.4-11.0)
[2025-04-22 16:47] LABS: Differential Indicated SCAN CRITERIA MET
[2025-04-22 17:06] VITALS: BP 116/68; PULSE 92; RESP 26; TEMP 36.8; O2SAT 95
[2025-04-22 17:06] LABS: Alcohol, Blood (Medical)-Serum < 10.1 mg/dL (<=10.0)
[2025-04-22 17:11] LABS: Anion Gap 18 (5-15); BUN 17 mg/dL (4-19); BUN/Creat Ratio 17.8 RATIO (10-20); Calcium,Total 9.8 mg/dL (7.6-11.0); Carbon Dioxide 17.3 mmol/L (21.0-32.0); Chloride 98 mmol/L (98-108); Estimated Creatinine Clearance 78.92 ml/min (50-250); Glucose 128 mg/dL (70-99); Magnesium 1.9 mg/dL (1.5-2.2); Potassium 4.0 mmol/L (3.3-5.1); Troponin T High Sensitivity 28 ng/L (<=22)
[2025-04-22 17:59] VITALS: BP 134/76; PULSE 93; RESP 22; TEMP 36.6; O2SAT 95
[2025-04-22 18:00] LABS: Mucous, Urine 0 SEEN /hpf (<or=2+)
[2025-04-22 18:10] LABS: Color, Urine Yellow (Yellow); Glucose, Dipstick Normal (Normal); Ketone-Dipstick 15 mg/dl (Negative); Leukocyte Esterase-Dipstick Negative /ul (Negative); Nitrite-Dipstick Negative (Negative); Occult Blood-Urine 10 /ul (Negative); Protein-Dipstick 30 mg/dl (Negative); Specific Gravity, Urine 1.010 (1.002-1.030); Urine Bilirubin Dipstick Negative (Negative)
[2025-04-22 18:12] LABS: Differential Comment SCANNED
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
[2025-04-22 18:33] LABS: Troponin T High Sens 2 HR 25 ng/L (<=22)
[2025-04-22 18:34] LABS: Barbiturate Urine NEGATIVE (< 200 ng/mL); Benzodiazepine Urine NEGATIVE (< 200 ng/mL); PCP Urine NEGATIVE (< 25 ng/mL); THC Urine PRESUMPTIVE POSITIVE (< 50 ng/mL)
[2025-04-22 18:51] LABS: Red Blood Cells-Urine 0-5 SEEN /hpf (0-5); Squamous Epithelial Cells - UA 0-5 SEEN /hpf (0-5)
[2025-04-22 19:00] VITALS: BP 134/77; PULSE 95; RESP 23; O2SAT 94
--- NOTE | 2025-04-22 19:27 | CM.ED ---
Social Work Laborer Landscape received confirmation from ED doctor that patient will go to TCU. (19:26) Laborer Landscape made phone contact with Claudine Nieves to let her know so that she can call team and make transition seamless. (19:27) No other identified needs/concerns noted at this time. Claudine Mcdonald, QUALITY CHECKER, ASSISTED LIVING COORDINATOR
[2025-04-22 19:39] VITALS: BP 144/87; PULSE 97; RESP 23; TEMP 37.2; O2SAT 94
== END 2025-04-22 20:16 | disposition skilled nursing facility (03) ==
PROVIDERS: Emergency Provider Student in an Organized Health Care Education/Training Program; PCP Internal Medicine; Visit Provider Student in an Organized Health Care Education/Training Program
DX: R55 Syncope and collapse (principal); E11.9 Type 2 diabetes mellitus without complications; R42 Dizziness and giddiness; E78.5 Hyperlipidemia, unspecified; I10 Essential (primary) hypertension; F17.210 Nicotine dependence, cigarettes, uncomplicated; I25.10 Atherosclerotic heart disease of native coronary artery without angina pectoris; R62.7 Adult failure to thrive; K21.9 Gastro-esophageal reflux disease without esophagitis; Z91.148 Patient's other noncompliance with medication regimen for other reason; Z79.899 Other long term (current) drug therapy; Z79.84 Long term (current) use of oral hypoglycemic drugs; R29.700 NIHSS score 0; D72.829 Elevated white blood cell count, unspecified; W19.XXXA Unspecified fall, initial encounter; Z79.02 Long term (current) use of antithrombotics/antiplatelets
CPT/HCPCS: 70450; 70496; 70498; 71275; 72125; 80048; 80307; 81001; 82077; 82803; 83605; 83735; 84443; 84484; 85025; 87631; 93005; 96360; 96361; 99285; Q9967; A4216

== ENCOUNTER 2025-04-22 20:15 | Inpatient (IN) | payer MEDICARE, SELFPAY ==
--- OUTSIDE RECORDS SUMMARY | 2025-04-22 20:42 | XMS RPT_ITS | CCD ---
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 BUN/CRE 14.9 RATIO Normal 03-27 [facility] Comment on above: Performed By: #### L 501.5200, L505.5000 #### [facility] [address] [place], [address] Calcium [Mass/Vol] 10.1 mg/dL Normal 7.6-11.0 [facility] Comment on above: Performed By: #### L 501.5200, L505.5000 #### [facility] [address] [place], [address] Chloride [Moles/Vol] 97 mmol/L Low 98-108 [facility] Comment on above: Performed By: #### L 501.5200, L505.5000 #### [facility] [address] [place], [address] CO2 [Moles/Vol] 24.1 mmol/L Normal 21.0-32.0 [facility] Comment on above: Performed By: #### L 501.5200, L505.5000 #### [facility] [address] [place], [address] Creatinine [Mass/Vol] 0.72 mg/dL Normal 0.70-1.20 [facility] Comment on above: Performed By: #### L 501.5200, L505.5000 #### [facility] [address] [place], [address] ECRCL 99.49 ml/min Normal 50-250 [facility] Comment on above: Performed By: #### L 501.5200, L505.5000 #### [facility] [address] [place], [address] GAP 13 Normal 5-15 [facility] Comment on above: Performed By: #### L 501.5200, L505.5000 #### [facility] [address] [place], [address] GFR/1.73 sq M.predicted among non-blacks MDRD (S/P/Bld) [Vol rate/Area] 101 mL/min/{1.73_m2} Normal >60 [facility] Comment on above: Result Comment: mL/m in/1.73m2 CKD-EPI Creatinine Equation (2020) Performed By: #### L 501.5200, L505.5000 #### [facility] [address] [place], [address] Glucose [Mass/Vol] 181 mg/dL High 70-99 [facility] Comment on above: Performed By: #### L 501.5200, L505.5000 #### [facility] [address] [place], [address] Potassium [Moles/Vol] 4.2 mmol/L Normal 3.3-5.1 [facility] Comment on above: Performed By: #### L 501.5200, L505.5000 #### [facility] [address] [place], [address] Sodium [Moles/Vol] 134 mmol/L Normal 133-145 [facility] Comment on above: Performed By: #### L 501.5200, L505.5000 #### [facility] [address] [place], [address] Urea nitrogen [Mass/Vol] 11 mg/dL Normal 4-19 [facility] Comment on above: Performed By: #### L 501.5200, L505.5000 #### [facility] [address] [place], [address] CBC W/Diff, Automatedon 10-3 0-2025 Absolute Lymph 1.73 X10 3/uL Normal 0.83-4.51 [facility] Comment on above: Performed By: #### L 501.5200, L505.5000 #### [facility] [address] [place], [address] Absolute Neut 7.4 X10 3/uL Normal 2.0-7.7 [facility] Comment on above: Performed By: #### L 501.5200, L505.5000 #### [facility] [address] [place], [address] Basophils/100 WBC (Bld) 0.5 % Normal 0-1 [facility] Comment on above: Performed By: #### L 501.5200, L505.5000 #### [facility] [address] [place], [address] Eosinophils/100 WBC (Bld) 0.1 % Normal 0-5 [facility] Comment on above: Performed By: #### L 501.5200, L505.5000 #### [facility] [address] [place], [address] Erythrocyte distribution width (RBC) [Ratio] 12.9 % Normal 11.6-14.6 [facility] Comment on above: Performed By: #### L 501.5200, L505.5000 #### [facility] [address] [place], [address] Hematocrit (Bld) [Volume fraction] 49.9 % Normal 40-54 [facility] Comment on above: Performed By: #### L 501.5200, L505.5000 #### [facility] [address] [place], [address] Hemoglobin (Bld) [Mass/Vol] 17.4 g/dL High 13.0-16.5 [facility] Comment on above: Performed By: #### L 501.5200, L505.5000 #### [facility] [address] [place], [address] IG% 0.400 Normal 0.0-0.9 [facility] Comment on above: Result Comment: IG% - Immature Granulocytes (promyelocytes, myelocytes and metamyelocytes) > 1% indicates that a LEFT SHIFT is Present. Performed By: #### L 501.5200, L505.5000 #### [facility] [address] [place], [address] Lymphocytes/100 WBC (Bld) 17.0 % Low 19-41 [facility] Comment on above: Performed By: #### L 501.5200, L505.5000 #### [facility] [address] [place], [address] MCH (RBC) [Entitic mass] 32.6 pg High 27.0-32.0 [facility] Comment on above: Performed By: #### L 501.5200, L505.5000 #### [facility] [address] [place], [address] MCHC (RBC) [Mass/Vol] 34.9 g/dL Normal 32-36 [facility] Comment on above: Performed By: #### L 501.5200, L505.5000 #### [facility] [address] [place], [address] MCV (RBC) [Entitic vol] 93.6 fL Normal 80-94 [facility] Comment on above: Performed By: #### L 501.5200, L505.5000 #### [facility] [address] [place], [address] Monocytes/100 WBC (Bld) 8.9 % Normal 0-10 [facility] Comment on above: Performed By: #### L 501.5200, L505.5000 #### [facility] [address] [place], [address] Neutrophils/100 WBC (Bld) 73.1 % High 47-70 [facility] Comment on above: Performed By: #### L 501.5200, L505.5000 #### [facility] [address] [place], [address] Nucleated RBC (Bld) [#/Vol] 0 10*3/uL Normal 0-5 [facility] Comment on above: Performed By: #### L 501.5200, L505.5000 #### [facility] [address] [place], [address] Platelet mean volume (Bld) [Entitic vol] 10.8 fL Normal 6.2-12.0 [facility] Comment on above: Performed By: #### L 501.5200, L505.5000 #### [facility] [address] [place], [address] Platelets (Bld) [#/Vol] 209 10*3/uL Normal 150-450 [facility] Comment on above: Performed By: #### L 501.5200, L505.5000 #### [facility] [address] [place], [address] RBC (Bld) [#/Vol] 5.33 10*6/uL Normal 4.6-6.2 [facility] Comment on above: Performed By: #### L 501.5200, L505.5000 #### [facility] [address] [place], [address] RDW SD 44.0 fl High 35.1-43.9 [facility] Comment on above: Performed By: #### L 501.5200, L505.5000 #### [facility] [address] [place], [address] WBC (Bld) [#/Vol] 10.2 10*3/uL Normal 4.4-11.0 [facility] Comment on above: Performed By: #### L 501.5200, L505.5000 #### [facility] [address] [place], [address] Chest PA and Lateralon 04-06 Chest PA and Lateral [facility] Imaging Services [address] [place] [address] Chest PA and Lateral MR#: [id number] Acct: [id number] Name: LASHA SMITH Rep #: [id number] : 1960 M 64 From: Jm contreras MD PCP: Lyric Weaver NP-C Status: [facility] ER Study: Chest PA and Lateral Date of Exam: 04/06/25 Exam# [id number] Ordering Dr: Khadijah Seymour MD PROCEDURE: CHEST [...] suggestive of possible pulmonary hypertension. Reading Location: [id number] CC: [employer]-C Lyric Weaver; Dr. Khadijah Seymour MD Booking Clerk: Signed Normal [facility] D-Dimer Quantitative (DVT/PE )on 04-06-2025 D-DIMER QUANT 0.27 FEU/ug/m Normal 0.27-0.49 [facility] Comment on above: Result Comment: NORM AL D-Dimer level (<0.50) indicates no DVT or PE. Performed By: #### L 501.5200, L505.5000 #### [facility] [address] [place], [address] Emergency Department Summary on 04-06-[address] [facility] Records Department [address] [place] [address] Emergency Department Summary 04/06/25 MR#: [id number] Acct: [id number] Name: LASHA SMITH Rep #: [id number] : 1960 64 From: Khadijah Seymour MD [...] feels like someone is sitting on my chest. He endorses a cough which is chronic for him. He does smoke cigarettes and marijuana. He denies any fever, chills, headache, vision changes, shortness of breath, abdominal pain, nausea, vomiting, diarrhea, dysuria or hematuria. Denies any focal numbness or weakness. He was prescribed refills of his medications this morning and states he has not picked them up yet. 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 Pat (more content not included)... Normal [facility] Emergency Department Summary [facility] Medical Records Department [address] [place] [address] Emergency Department Summary 04/06/25 MR#: [id number] Acct: [id number] Name: LASHA SMITH Rep #: [id number] : 1960 64 From: Ciera Crawford DO [...] concerns reported at this time. 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 Normal [facility] L501.4021on 04-06-2025 Trop T High Sen 24 ng/L High <=22 [facility] Comment on above: Performed By: #### L 501.5200, L505.5000 #### [facility] [address] [place], [address] Troponin T HS 2 HRon 04-06-2 025 Trop T High Sen 22 ng/L Normal <=22 [facility] Comment on above: Performed By: #### L 501.5200, L505.5000 #### [facility] [address] [place], [address] Troponin T HS 4 HRon 04-06-2 025 Trop T High Sen Normal <=22 [facility] Comment on above: Result Comment: ADRIAN ENT DISCHARGED Performed By: #### L 501.080 #### [facility] [address] [place], [address] Absolute lymphocyte countOrd ered By: Dr. Mark on 08-27-2022 Lymphocytes Auto (Unsp spec) [#/Vol] 1.54 10*3/uL 0.83-4.51 [facility] Basophil percentageOrdered B y: Dr. Mark on 08-27-2022 Basophil percentage 0-5 SEEN /hpf 0-5 [facility] Basophils/100 WBC (Bld) 0.2 % 0-1 [facility] Chloride [Moles/Vol] 99 mmol/L 98-107 [facility] Eosinophils/100 WBC (Bld) 0.0 % 0-5 [facility] Glucose [Mass/Vol] 230 mg/dL 74-106 [facility] Comment on above: Glucose result great er than or equal to 200 mg/dLsuggests DIABETES MELLITUS per A.D.A. criteria. Neutrophils (Bld) [#/Vol] 20.4 10*3/uL 2.0-7.7 [facility] Neutrophils/100 WBC (Bld) 81.2 % 47-70 [facility] Potassium [Moles/Vol] 4.0 mmol/L 3.5-5.1 [facility] Sodium [Moles/Vol] 131 mmol/L 136-145 [facility] WBC (Bld) [#/Vol] 25.2 10*3/uL 4.4-11.0 [facility] Bilirubin Test strip Ql (U)O rdered By: Dr. Mark on 08-27-2022 Bilirubin Ql (U) Negative Negative [facility] Blood erythrocytes count (nu mber/volume)Ordered By: Dr. Mark on 08-27-2022 RBC (Bld) [#/Vol] 5.41 10*6/uL 4.6-6.2 [facility] Blood hemoglobin measurement (mass/volume)Ordered By: Dr. Mark on 08-27-2022 Hemoglobin (Bld) [Mass/Vol] 16.9 g/dL 13.0-16.5 [facility] Blood lymphocytes/100 leukoc ytesOrdered By: Dr. Mark on 08-27-2022 Lymphocytes/100 WBC (Bld) 6.1 % 19-41 [facility] Blood monocytes/100 leukocyt esOrdered By: Dr. Mark on 08-27-2022 Monocytes/100 WBC (Bld) 11.9 % 0-10 [facility] Blood platelet mean volumeOr dered By: Dr. Mark on 08-27-2022 Platelet mean volume (Bld) [Entitic vol] 10.7 fL 6.2-12.0 [facility] Determination of erythrocyte mean corpuscular volume (MCV)Ordered By: Dr. Mark on 08-27-2022 MCV (RBC) [Entitic vol] 90.0 fL 80-94 [facility] Hematocrit Auto (Bld) [Volum e fraction]Ordered By: Dr. Mark on 08-27-2022 Hematocrit (Bld) [Volume fraction] 48.7 % 40-54 [facility] Ketones Test strip Ql (U)Ord ered By: Dr. Mark on 08-27-2022 Ketones Ql (U) 150 mg/dl Negative [facility] Comment on above: CRITICAL VALUE *HCRI TICAL VALUE VERIFIED. CALLED TO Ran SPRINGER RN ER08/27/22 0512 Denis Beasley.RESULTS READ BACK BY SAME. Laboratory - Chemistry and C hemistry - challengeOrdered By: Dr. Mark on 08-27-2022 CO2 [Moles/Vol] 21.0 mmol/L 21.0-32.0 [facility] Urea nitrogen/Creatinine [Mass ratio] 17.0 mg/mg 10-20 [facility] - Hematology and Cell countsOrdered By: Dr. Mark on 08-27-2022 Erythrocyte distribution width (RBC) [Entitic vol] 45.9 fL 35.1-43.9 [facility] Erythrocyte distribution width (RBC) [Ratio] 13.8 % 11.6-14.6 [facility] Immature granulocytes/100 WBC (Bld) 0.600 % 0.0-0.9 [facility] Comment on above: IG% - Immature Granu locytes (promyelocytes, myelocytes and metamyelocytes) > 1% indicates that a LEFT SHIFT is Present. MCH (RBC) [Entitic mass] 31.2 pg 27.0-32.0 [facility] Nucleated RBC/100 WBC (Bld) [Ratio] 0 % 0-5 [facility] MCHC Auto (RBC) [Mass/Vol]Or dered By: Dr. Mark on 08-27-2022 MCHC (RBC) [Mass/Vol] 34.7 g/dL 32-36 [facility] Mucus LM Ql (Urine sed)Order ed By: Dr. Mark on 08-27-2022 Mucus Ql (Urine sed) 2+ /hpf [facility] Nitrite Test strip Ql (U)Ord ered By: Dr. Mark on 08-27-2022 Nitrite Ql (U) Negative Negative [facility] No Panel InformationOrdered By: Dr. Mark on 08-27-2022 Estimated Creatinine Clearance Calc 83.13 ml/min [facility] Estimated GFR (MDRD) Amer 112 mL/min >60 [facility] Comment on above: GFR Calc Estimated GFR (MDRD) Non-Af Amer 92 mL/min >60 [facility] Comment on above: Non- GFR Calc Platelets bldOrdered By: Dr. Mark on 08-27-2022 Platelets (Bld) [#/Vol] 220 10*3/uL 150-450 [facility] Protein Test strip Ql (U)Ord ered By: Dr. Mark on 08-27-2022 Protein Ql (U) 30 mg/dl Negative [facility] Review by pathologistOrdered By: Dr. Mark on 08-27-2022 Pathologist review Narinder (Unsp spec) [Interp] May foll [facility] Serum or plasma calcium subha urement (mass/volume)Ordered By: Dr. Mark on 08-27-2022 Calcium [Mass/Vol] 9.3 mg/dL 8.5-10.1 [facility] Serum or plasma creatinine m easurement (mass/volume)Ordered By: Dr. Mark on 08-27-2022 Creatinine [Mass/Vol] 0.88 mg/dL 0.70-1.30 [facility] Comment on above: The validity of the calculated GFR & GFRAA in patients over 70 years has not been determined. Clinical correlation is essential. Serum or plasma urea nitroge n measurement (mass/volume)Ordered By: Dr. Mark on 08-27-2022 Urea nitrogen [Mass/Vol] 15 mg/dL 7-18 [facility] Squamous epithelial cells de tection in urine sediment by light microscopyOrdered By: Dr. Mark on 08-27-2022 Epithelial cells.squamous LM Ql (Urine sed) 0 SEEN /hpf 0-5 [facility] Thin prep Papanicolaou smear with manual screeningOrdered By: Dr. Mark on 08-27-2022 Thin prep Papanicolaou smear with manual screening 11 5-15 [facility] Urine blood detectionOrdered By: Dr. Mark on 08-27-2022 RBC Ql (U) 10 /ul Negative [facility] RBC Ql (U) 0-5 SEEN /hpf 0-5 [facility] Urine clarityOrdered By: Dr. Mark on 08-27-2022 Clarity (U) Clear Clear [facility] Urine color determinationOrd ered By: Dr. Mark on 08-27-2022 Color (U) Yellow Yellow [facility] Urine glucose detectionOrder ed By: Dr. Mark on 08-27-2022 Glucose Ql (U) 1000 mg/dl Normal [facility] Urine leukocyte esterase det ection by dipstickOrdered By: Dr. Mark on 08-27-2022 Leukocyte esterase Test strip Ql (U) 25 /ul Negative [facility] Urine pHOrdered By: Dr. Siobhan peña on 08-27-2022 pH (U) 6.0 [pH] 5.0 - 8.0 [facility] Urine sediment bacteria coun t by microscopy (number/high power field)Ordered By: Dr. Mark on 08-27-2022 Bacteria LM.HPF (Urine sed) [#/Area] 1 /[HPF] None Seen [facility] Urine specific gravity measu rementOrdered By: Dr. Mark on 08-27-2022 Specific gravity (U) [Rel density] 1.020 1.002-1.03 0 [facility] Urobilinogen Auto test strip Ql (U)Ordered By: Dr. Mark on 08-27-2022 Urobilinogen Ql (U) 1 mg/dl Normal [facility] Blood Glucose , Office (6060 2)Ordered By: Sabi Luke on 05-16-2022 Glucose Glucometer (BldC) [Moles/Vol] 214 1 Normal [facility] Work Phone: HgA1C , Office ([phone])Ordere d By: Sabi Luke on 05-16-2022 HbA1c (Bld) [Mass fraction] 9.6 % Abnormal 4.6 - 7.1 [facility] Work Phone: CNOVon 04-09-2022 CNOV Office Visit (AGHWW1 ) ----- LASHA SMITH ([id number]) 1960 M Date Time Provider Department 04/09/22 2:45 PM BAO PERALTA AGHWW1 During your visit today, we recorded the following information about you: Temperature Weight Height 98.2 degrees 102.1 kg 1.74 m Bao Peralta MD 04/09/2022 3:02 PM Signed 04/09/2022 RE: Lasha Smith DATE OF : 1960 Vitals: Temp 98.2 Ht 5' 8.5 (1.74m) Wt 225 lb (102.1kg) BMI 33.71 [...] brain R amygdalar tumor , 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 Normal [facility] LAS[facility] SM[facility] ([id number]) 1960 M Date Time Provider Department 04/09/22 BAO PERALTAB1 During your visit today, we recorded the [...] Encounter Status:Closed by MARINA MENESES on 04/10/22 [facility] Peggy 03-12-2022 JOSEN Telephone (AGPOB1) ----- LASHA SMITH ([id number]) 1960 M Date Time Provider Department 03/12/22 ALEXANDRE SAENZ During your visit today, we recorded the following information about you: Shade Florez [place] Ppg 03/12/2022 9:15 AM Signed ----- Message from [...] other than patient: herminia Best contact number: [phone] Thank you, Zara Coburn March 12, 2022 8:35 AM Nelly [place] P[facility] 03/12/2022 2:38 PM Signed Left message for Herminia to return my call. [place]elly [place] Fundraising Consultant [facility] March 12, 2022 2:37 PM Allergies As [...] 35-39.9 [E66.9] 12/07/2021 Encounter Status:Closed by ROYAL [employer] EQUIPMENT INSTALLER SHADE SINGH on 03/12/[address] [facility] Blood Glucose , Office (3796 2)Ordered By: Erica Yip on 02-14-2022 Glucose Glucometer (BldC) [Moles/Vol] 184 1 Normal [facility] Work Phone: HgA1C , Office ([phone])Betsey steiner By: Erica Yip on 02-14-2022 HbA1c (Bld) [Mass fraction] 8.2 % Abnormal 4.6 - 7.1 [facility] Work Phone: Kedar 01-22-2022 CNOV Office Visit (AGHWW1 ) ----- CLYDE SMITHNIS ([id number]) 1960 M Date Time Provider Department 01/22/22 3:30 PM BAO PERALTA AGHWW1 During your visit today, we recorded the following information about you: Respiration Weight Height 18/minute 106.6 kg 1.727 m Bao Peralta MD 01/22/2022 3:48 PM Signed 01/22/2022 RE: Lasha Smith DATE OF : 1960 Vitals: Resp 18 Ht 5' 8 (1.73m) Wt 235 lb (106.6kg) BMI 35.74 [...] [205] Pain [78] Cmt: Pain with activity / Primary Visit Diagnosis:Closed displaced oblique fracture of shaft of right tibia with routine healing, subsequent encounter [A12.333R] Order(s):XR TIBIA FIBULA 2V AP/LAT RIGHT [[id number]] Order #: [id number] Prescriptions as of 01/22/2022 - METFORMIN HCL [...] Noted Re (more content not included)... Normal [facility] CNOVon 12-18-2021 [facility] Office Visit (AGHWW1 ) ----- LASHA SMITH ([id number]) 1960 M Date Time Provider Department 12/18/21 2:45 PM BAO PERALTA AGHWW1 During your visit today, we recorded the following information about you: Temperature Weight Height 98.2 degrees 106.6 kg 1.74 m Bao Peralta MD 12/18/2021 3:11 PM Signed 12/18/2021 RE: Lasha Smith DATE OF : 1960 Vitals: Temp 98.2 Ht 5' 8.5 (1.74m) Wt 235 lb (106.6kg) BMI 35.21 [...] right tibia with routine healing, subsequent encounter [Z08.136F] Order(s):XR TIBIA FIBULA 2V AP/LAT RIGHT [[id number]] Order #: [id number] Prescriptions as of 12/18/2021 - acetaminophen (TYLENOL) [...] 15 mg (more content not included)... Normal [facility] Peggy 12-17-2021 [facility]NPN Telephone (PODCC) ----- LASHA SMITH ([id number]) 1960 M Date Time Provider Department 12/17/21 [facility] During your visit today, we recorded the following information about you: Allergies As of Date: 12/17/2021 Noted Allergy Reaction SULFA (SULFONAMIDE ANTIBIOTICS) 11/10/2003 12 - Shortness of Breath PRAVASTATIN 04/24/2015 17 - Myalgia Date Reviewed: 12/08/2021 Reviewed by: Sofia Aaron RN - Fully Assessed Reason for Visit: Follow Up Phone Call [1474] Cmt: Post Discharge F/U ? attempt made. [...] Encounter Status:Closed by MARYELLEN REESE on 12/17/21 [facility] Peggy 12-11-2021 CNPN Telephone (AGPOB1) ----- LASHA SMITH ([id number]) 1960 M Date Time Provider Department 12/11/21 ORTH AGPOB1 During your visit today, we recorded the following information about you: Shade Florez Fundraising Consultant [facility] 12/11/2021 11:06 AM Signed ----- Message from [...] which facility was the patient seen at: [facility] 12.06.2021 - 12.09.2021 Was an appointment scheduled (Y/N): n Person calling if other than patient: y Return call to if other than patient: y Best contact number: Sister/ Jessica Lee @ [phone] Thank you, Zoya Hernandez December 11, 2021 [...] 35-39.9 [E66.9] 12/07/2021 Encounter Status:Closed by [employer] INSTALLER SHADE SINGH on 12/11/[address] [facility] Basic metabolic 2000 panelon 12-09-2021 Anion gap [Moles/Vol] 12 mmol/L Normal 9-18 [facility] Comment on above: Order Comment: Speci men Type: BLOOD SPECIMENOrdering Facility: [facility] Address: [address] [id number] Performed By: #### 2 4321-2 ####[facility]ORY[facility]IA [id number] [place] [address] [place] Calcium [Mass/Vol] 8.9 mg/dL Normal 8.5-10.2 [facility] Comment on above: Order Comment: Speci men Type: BLOOD SPECIMENOrdering Facility: [facility] Address: [address] Performed By: #### 2 4321-2 ####[facility]ORY[facility] [id number] [address] [place] Chloride [Moles/Vol] 98 mmol/L Normal 97-105 [facility] Comment on above: Order Comment: Speci men Type: BLOOD SPECIMENOrdering Facility: [facility] Address: [address] [place] [address] Performed By: #### 2 4321-2 ####[facility]ORYCL[facility] [id number] [address] OF [facility] CO2 [Moles/Vol] 24 mmol/L Normal 22-30 [facility] Comment on above: Order Comment: Speci men Type: BLOOD SPECIMENOrdering Facility: [facility] Address: [address] [place] [address] Performed By: #### 2 4321-2 ####[facility]ORYCL[facility] [id number] [address] Creatinine [Mass/Vol] 0.78 mg/dL Normal 0.73-1.22 [facility] Comment on above: Order Comment: Speci men Type: BLOOD SPECIMENOrdering Facility: [facility] Address: [address] [place] [address] Performed By: #### 2 4321-2 ####[facility]ORYCLIA [id number] [address] ESTIMATED GLOMERULAR FILTRATION RATE 100 mL/min/1.73m??? Normal >=60 [facility] Comment on above: Order Comment: Speci men Type: BLOOD SPECIMENOrdering Facility: [facility] Address: [address] [place] [address] Result Comment: Sophie mated Glomerular Filtration Rate [...] actual GFR. Performed By: #### 2 4321-2 ####[facility]ORYCLIA [id number] [place] [address] [place] Glucose [Mass/Vol] 199 mg/dL High 74-99 [facility] Comment on above: Order Comment: Speci men Type: BLOOD SPECIMENOrdering Facility: [facility] Address: [address] [place] [address] Result Comment: The [place] Diabetes Association (ADA) provides guidance for cutoff [...] Standards of Medical Care in Diabetes 2016, [place] [employer]. Diabetes Care. 2016.39(Suppl 1). Performed By: #### 2 4321-2 ####[facility]ORYCLIA [id number] [place] [address] [place] Potassium [Moles/Vol] 3.9 mmol/L Normal 3.7-5.1 [facility] Comment on above: Order Comment: Speci men Type: BLOOD SPECIMENOrdering Facility: [facility] Address: [address] [place] [address] Performed By: #### 2 4321-2 ####[facility]ORYCLIA [id number] [place] [address] [place] Sodium [Moles/Vol] 134 mmol/L Low 136-144 [facility] Comment on above: Order Comment: Speci men Type: BLOOD SPECIMENOrdering Facility: [facility] Address: [address] [place] [address] Performed By: #### 2 4321-2 ####[facility] LABORATORYCLIA [id number] [address] [place] [facility] Urea nitrogen [Mass/Vol] 12 mg/dL Normal 9-24 [facility] Comment on above: Order Comment: Speci men Type: BLOOD SPECIMENOrdering Facility: [facility] Address: [address] [place] [address] Performed By: #### 2 4321-2 ####[facility] LABORATORYCLIA [id number] [address] STATES OF [facility] CBC panel Auto (Bld)on 12-09 Erythrocyte distribution width (RBC) [Ratio] 13.0 % Normal 11.5-15.0 [facility] Comment on above: Order Comment: Speci men Type: BLOOD SPECIMENOrdering Facility: [facility] Address: [address] [place] [address] Performed By: #### 5 8410-2 ####[facility] LABORATORYCLIA [id number] [address] Hematocrit (Bld) [Volume fraction] 39.4 % Normal 39.0-51.0 [facility] Comment on above: Order Comment: Speci men Type: BLOOD SPECIMENOrdering Facility: [facility] Address: [address] [place] [address] Performed By: #### 5 8410-2 ####[facility] LABORATORYCLIA [id number] [address] STATES OF [facility] Hemoglobin (Bld) [Mass/Vol] 13.7 g/dL Normal 13.0-17.0 [facility] Comment on above: Order Comment: Speci men Type: BLOOD SPECIMENOrdering Facility: [facility] Address: [address] [place] [address] Performed By: #### 5 8410-2 ####[facility] LABORATORYCLIA [id number] [address] MCH (RBC) [Entitic mass] 32.0 pg Normal 26.0-34.0 [facility] Comment on above: Order Comment: Speci men Type: BLOOD SPECIMENOrdering Facility: [facility] Address: [address] [address] Performed By: #### 5 8410-2 ####[facility] LABORATORYCLIA [id number] [address] [place] [facility] MCHC (RBC) [Mass/Vol] 34.8 g/dL Normal 30.5-36.0 [facility] Comment on above: Order Comment: Speci men Type: BLOOD SPECIMENOrdering Facility: [facility] Address: [address] [place] [address] Performed By: #### 5 8410-2 ####[facility] LABORATORYCLIA [id number] [address] OF [facility] MCV (RBC) [Entitic vol] 92.1 fL Normal 80.0-100.0 [facility] Comment on above: Order Comment: Speci men Type: BLOOD SPECIMENOrdering Facility: [facility] Address: [address] [place] [address] Performed By: #### 5 8410-2 ####[facility]ORATORYCLIA [id number] [address] Nucleated RBC (Bld) [#/Vol] 10*3/uL Normal <0.01 [facility] Comment on above: Order Comment: Speci men Type: BLOOD SPECIMENOrdering Facility: [facility] Address: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 (Bld) [Volum e fraction]on 12-06-2021 Hematocrit (Bld) [Volume fraction] 47.0 % 40-54 [facility] Work Phone: INR in Blood by Coagulation assayon 12-06-2021 INR Coag (Bld) [Relative time] 1.0 {INR} [facility] Work Phone: Laboratory - Chemistry and C hemistry - challengeon 12-06-2021 CO2 [Moles/Vol] 23.0 mmol/L 21.0-32.0 [facility] Work Phone: Urea nitrogen/Creatinine [Mass ratio] 11.5 mg/mg 10-20 [facility] Work Phone: Laboratory - Coagulationon 0 12-06-2021 aPTT Coag (Bld) [Time] 24.8 s 24.1-36.2 [facility] Work Phone: PT Coag (PPP) [Time] 12.6 s 11.7-14.9 [facility] Work Phone: Laboratory - Hematology and Cell countson 12-06-2021 Erythrocyte distribution width (RBC) [Entitic vol] 44.7 fL 35.1-43.9 [facility] Work Phone: Erythrocyte distribution width (RBC) [Ratio] 13.1 % 11.6-14.6 [facility] Work Phone: Immature granulocytes/100 WBC (Bld) 0.600 % 0.0-0.9 [facility] Work Phone: Comment on above: IG% - Immature Granu locytes (promyelocytes, myelocytes and metamyelocytes) > 1% indicates that a LEFT SHIFT is Present. MCH (RBC) [Entitic mass] 31.9 pg 27.0-32.0 [facility] Work Phone: Nucleated RBC/100 WBC (Bld) [Ratio] 0 % 0-5 [facility] Work Phone: MCHC Auto (RBC) [Mass/Vol]on 12-06-2021 MCHC (RBC) [Mass/Vol] 33.6 g/dL 32-36 [facility] Work Phone: No Panel Informationon 12-06 Estimated Creatinine Clearance Calc 59.96 ml/min [facility] Work Phone: Estimated GFR (MDRD) Amer 77 mL/min >60 [facility] Work Phone: Comment on above: GFR Calc Estimated GFR (MDRD) Non-Af Amer 64 mL/min >60 [facility] Work Phone: Comment on above: Non- GFR Calc Platelets bldon 12-06-2021 Platelets (Bld) [#/Vol] 200 10*3/uL 150-450 [facility] Work Phone: Serum or plasma calcium subha urement (mass/volume)on 12-06-2021 Calcium [Mass/Vol] 9.2 mg/dL 8.5-10.1 [facility] Work Phone: Serum or plasma creatinine m easurement (mass/volume)on 12-06-2021 Creatinine [Mass/Vol] 1.22 mg/dL 0.70-1.30 [facility] Work Phone: Comment on above: The validity of the calculated GFR & GFRAA in patients over 70 years has not been determined. Clinical correlation is essential. Serum or plasma urea nitroge n measurement (mass/volume)on 12-06-2021 Urea nitrogen [Mass/Vol] 14 mg/dL 7-18 [facility] Work Phone: Thin prep Papanicolaou smear with manual screeningon 12-06-2021 Thin prep Papanicolaou smear with manual screening 9 5-15 [facility] Work Phone: Blood Glucose , Office [phone])Ordered By: Cindy Chatterjee on 11-13-2021 Glucose Glucometer (BldC) [Moles/Vol] 254 1 Normal [facility]; [facility] Work Phone: CBC W/AUTO DIFF WBC ([phone])O rdered By: Car Repairer Helper on 11-13-2021 Basophils (Bld) [#/Vol] 0.1 10*3/uL [...] MCHC (RBC) [Mass/Vol] 33.3 g/dL Normal 31.5-35.7 [facility] prehensive [facility] Medicine; [facility] [...] (Bld) [#/Vol] 5.42 10*6/uL Normal 4.14-5.80 [facility]pr [facility]; [facility] Work Phone: WBC (Bld) [#/Vol] 9.3 10*3/uL Normal 3.4-10.8 Compre [facility] Internal [facility]; [facility] Work Phone: HEPATITIS C ANTIBODY ([phone]) Ordered By: Car Repairer Helper on 11-13-2021 HCV Ab Signal/Cutoff IA [Rel units/Vol] {ratio} Normal 0.0-0.9 [facility]; [facility] Work Phone: HgA1C , Office ([phone])Ordere d By: Cindy Chatterjee on 11-13-2021 HbA1c (Bld) [Mass fraction] 10.5 % Abnormal 4.6 - 7.1 [facility]; [facility] Work Phone: LIPID PANEL ([phone])Ordered B y: Car Repairer Helper on 11-13-2021 Cholesterol [Mass/Vol] 262 mg/dL Abnormal 100-199 [facility]; [facility] Work Phone: Cholesterol in HDL [Mass/Vol] 30 mg/dL Abnormal [facility]; [facility] Work Phone: Triglyceride [Mass/Vol] 334 mg/dL Abnormal 0-149 [facility]; [facility] Work Phone: LIPID PANEL ([phone]) 64 mg/dL Abnormal 5-40 [facility]pr [facility]; [facility] Work Phone: LIPID PANEL ([phone]) 168 mg/dL Abnormal 0-99 [facility]; [facility] Work Phone: LIPID PANEL ([phone]) 5.6 {ratio} Abnormal 0.0-3.6 [facility]; [facility] Work Phone: METABOLIC PANEL, COMPREHENSI VE ([phone])Ordered By: Car Repairer Helper on 11-13-2021 Albumin [Mass/Vol] 4.5 g/dL Normal 3.8-4.8 [facility]; [facility] Work Phone: Albumin/Globulin [Mass ratio] 1.9 {ratio} Normal 1.2-2.2 [facility]; [facility] Work Phone: ALP [Catalytic activity/Vol] 126 U/L Abnormal 44-121 [facility]; [facility] Work Phone: ALT [Catalytic activity/Vol] 24 U/L Normal 0-44 [facility]; [facility] Work Phone: AST [Catalytic activity/Vol] 25 U/L Normal 0-40 [facility]; [facility] Work Phone: Bilirubin [Mass/Vol] 0.5 mg/dL Normal 0.0-1.2 [facility]; [facility] Work Phone: Calcium [Mass/Vol] 9.7 mg/dL Normal 8.6-10.2 [facility]; [facility] Work Phone: Chloride [Moles/Vol] 95 mmol/L Abnormal 96-106 [facility]; [facility] Work Phone: CO2 [Moles/Vol] 25 mmol/L Normal 20-29 [facility]; [facility] Work Phone: Creatinine [Mass/Vol] 0.89 mg/dL Normal 0.76-1.27 [facility]; [facility] Work Phone: Globulin (S) [Mass/Vol] 2.4 g/dL Normal 1.5-4.5 [facility]; [facility] Work Phone: Glucose [Mass/Vol] 227 mg/dL Abnormal 65-99 [facility]; [facility] Work Phone: Potassium [Moles/Vol] 4.8 mmol/L Normal 3.5-5.2 [facility] prehensive [facility]; [facility] Work Phone: Protein [Mass/Vol] 6.9 g/dL Normal 6.0-8.5 [facility]; [facility] Work Phone: Sodium [Moles/Vol] 136 mmol/L Normal 134-144 [facility]; [facility] Work Phone: Urea nitrogen [Mass/Vol] 12 mg/dL Normal 8-27 [facility]; [facility] Work Phone: Urea nitrogen/Creatinine [Mass ratio] 13 mg/mg Normal 10-24 [facility]; [facility] Work Phone: METABOLIC PANEL, COMPREHENSIVE ([phone]) 97 mL/min/1.73 [facility]; [facility] Work Phone: MICROALBUMINOrdered By: Syst em Gospel Worker on 11-13-2021 Albumin DL <= 20 mg/L (U) [Mass/Vol] 3.7 ug/mL Normal [facility]; [facility] Work Phone: Albumin/Creatinine (U) [Mass ratio] 19 {mg/g_creat} Normal 0-29 [facility]; [facility] Work Phone: Creatinine (U) [Mass/Vol] 19.4 mg/dL Normal [facility]; [facility] Work Phone: TSH ([phone])Ordered By: Syste m Gospel Worker on 11-13-2021 TSH Qn 1.890 {uIU/mL} Normal 0.450-4.50 0 [facility]; [facility] Work Phone: URINALYSIS ([phone])Ordered By : Car Repairer Helper on 11-13-2021 Appearance (U) Clear Normal Comprehens [...] Internal Medicine Work Phone: HgA1C , Office ([phone])Ordere d By: Hayden Tierney on 08-09-2021 HbA1c (Bld) [Mass fraction] 9.6 % Abnormal 4.6 - 7.1 [facility]; [facility] Work Phone: LIPID PANEL ([phone])Ordered B y: Car Repairer Helper on 05-13-2021 Cholesterol [Mass/Vol] 279 mg/dL Abnormal 100-199 [facility]; [facility] Work Phone: Cholesterol in HDL [Mass/Vol] 30 mg/dL Abnormal [facility]; [facility] Work Phone: Triglyceride [Mass/Vol] 268 mg/dL Abnormal 0-149 [facility]; [facility] Work Phone: LIPID PANEL ([phone]) 53 mg/dL [facility]normal 5-40 [facility] Work Phone: LIPID PANEL ([phone]) 196 mg/dL Abnormal 0-99 [facility]; [facility] Work Phone: LIPID PANEL ([phone]) 6.5 {ratio} Abnormal 0.0-3.[address] [facility] Work Phone: Metabolic Panel, Comprehensi ve ([phone])Ordered By: Car Repairer Helper on 05-13-2021 Albumin [Mass/Vol] 4.7 g/dL Normal 3.8-4.8 [facility]; [facility] Work Phone: Albumin/Globulin [Mass ratio] 2.0 {ratio} Normal 1.2-2.2 [facility]; [facility] Work Phone: ALP [Catalytic activity/Vol] 108 U/L Normal 44-121 [facility]; [facility] Work Phone: ALT [Catalytic activity/Vol] 25 U/L Normal 0-44 [facility]; [facility] Work Phone: AST [Catalytic activity/Vol] 33 U/L Normal 0-40 [facility]; [facility] Work Phone: Bilirubin [Mass/Vol] 0.4 mg/dL Normal 0.0-1.[address] [facility]; [facility] Work Phone: Calcium [Mass/Vol] 9.6 mg/dL Normal 8.6-10.2 [facility]; [facility] Work Phone: Chloride [Moles/Vol] 98 mmol/L Normal 96-106 [facility]; [facility] Work Phone: CO2 [Moles/Vol] 21 mmol/L Normal 20-29 [facility]; [facility] Work Phone: Creatinine [Mass/Vol] 0.96 mg/dL Normal 0.76-1.27 [facility]; [facility] Work Phone: GFR/1.73 sq M.predicted among blacks CKD-EPI (S/P/Bld) [Vol rate/Area] 98 mL/min/1.73 Normal [facility]; [facility] Work Phone: GFR/1.73 sq M.predicted among non-blacks CKD-EPI (S/P/Bld) [Vol rate/Area] 84 mL/min/1.73 Normal [facility]; [facility] Work Phone: Globulin (S) [Mass/Vol] 2.3 g/dL Normal 1.5-4.5 [facility]; [facility] Work Phone: Glucose [Mass/Vol] 186 mg/dL Abnormal 65-99 [facility]; [facility] Work Phone: Potassium [Moles/Vol] 4.4 mmol/L Normal 3.5-5.2 [facility]; [facility] Work Phone: Protein [Mass/Vol] 7.0 g/dL Normal 6.0-8.5 [facility]; [facility] Work Phone: Sodium [Moles/Vol] 136 mmol/L Normal 134-144 [facility]; [facility] Work Phone: Urea nitrogen [Mass/Vol] 12 mg/dL Normal 8-27 [facility]; [facility] Work Phone: Urea nitrogen/Creatinine [Mass ratio] 13 mg/mg Normal 10-24 [facility]; [facility] Work Phone: PSA (PROSTATE SPECIFIC ANTIG EN) (V76.44)Ordered By: Car Repairer Helper on 05-13-2021 Prostate specific Ag [Mass/Vol] 0.3 ng/mL Normal 0.0-4.0 [facility]; [facility] Work Phone: TSH (THYROID STIMULATING HOR ARMANDO) ([phone])Ordered By: Car Repairer Helper on 05-13-2021 TSH Qn 2.260 {uIU/mL} Normal 0.450-4.50 0 [facility]; [facility] Work Phone: Blood Glucose , Office ([phone])Ordered By: Hayden Tierney on 09-19-2020 Glucose Glucometer (BldC) [Moles/Vol] 231 1 Normal [facility]; [facility] Work Phone: Comment on above: 231 CBC & PLATELETS (AUTO) ([phone])Ordered By: Car Repairer Helper on 09-19-2020 Erythrocyte distribution width (RBC) [Ratio] 12.1 % Normal 11.6-15.4 [facility]; [facility] Work Phone: Comment on above: PATIENT WAS FASTINGP ERFORMED BY: CB Lab[facility]ulerp [id number] [place] [id number] Hematocrit (Bld) [Volume fraction] 45.6 % Normal 37.5-51.0 [facility]; [facility] Work Phone: Comment on above: PATIENT WAS FASTINGP ERFORMED BY: USEUM LabUlulerp Tinsbv3120 [address] Ninja MetricsDublin [place] [id number] Hemoglobin (Bld) [Mass/Vol] 15.7 g/dL Normal 13.0-17.7 [facility]; [facility] Work Phone: Comment on above: PATIENT WAS FASTINGP ERFORMED BY: CB [facility] Wsksxp3253 [address] Ninja MetricsDublin [place] [id number] MCH (RBC) [Entitic mass] 32.0 pg Normal 26.6-33.0 [facility]; [facility] Work Phone: Comment on above: PATIENT WAS FASTINGP ERFORMED BY: USEUM [facility] Ylqoyi9445 [address] [facility] [id number] MCHC (RBC) [Mass/Vol] 34.4 g/dL Normal 31.5-35.7 [facility]; [facility] Work Phone: Comment on above: PATIENT WAS FASTINGP ERFORMED BY: MIRIAM [facility] Rbbpcu8623 [address] Roadblin [place] [id number] MCV (RBC) [Entitic vol] 93 fL Normal 79-97 [facility]; [facility] Work Phone: Comment on above: PATIENT WAS FASTINGP ERFORMED BY: CB [facility] Eodiko4565 [address] [facility] [id number] Platelets (Bld) [#/Vol] 193 {x10E3/uL} Normal 150-450 [facility]; [facility] Work Phone: Comment on above: PATIENT WAS FASTINGP ERFORMED BY: MIRIAM [facility] Hgetjp5031 [address] [facility] [id number] Platelets (Bld) [#/Vol] 193 10*3/uL Normal 150-450 [facility]; [facility] Work Phone: RBC (Bld) [#/Vol] 4.90 {x10E6/uL} Normal 4.14-5.80 [facility] Internal Medicine; [facility] Work Phone: Comment on above: PATIENT WAS FASTINGP ERFORMED BY: [facility] Akehgg0926 P[facility]taResearch [facility] [id number] RBC (Bld) [#/Vol] 4.90 10*6/uL Normal 4.14-5.80 [facility] Internal Medicine; [facility] Work Phone: WBC (Bld) [#/Vol] 8.2 {x10E3/uL} Normal 3.4-10.8 [facility] Internal Medicine; [facility] Work Phone: Comment on above: PATIENT WAS FASTINGP ERFORMED BY: CB [facility] Dtnyql0440 PeraltaResearch [facility] [id number] WBC (Bld) [#/Vol] 8.2 10*3/uL Normal 3.4-10.8 Compre [facility] Internal Medicine; [facility] Work Phone: HgA1C , Office ([phone])Betsey steiner By: Hayden Tierney on 09-19-2020 HbA1c (Bld) [Mass fraction] 9.5 % Abnormal 4.6 - 7.1 [facility]; [facility] Work Phone: Comment on above: 9.5 LIPID PANEL ([id number])Ordered B y: Car Repairer Helper on 09-19-2020 Cholesterol [Mass/Vol] 234 mg/dL Abnormal 100-199 [facility]; [facility] Work Phone: Comment on above: PATIENT WAS FASTINGP ERFORMED BY: MIRIAM LabMargarita Dziclb1458 [facility] [id number] Cholesterol in HDL [Mass/Vol] 27 mg/dL Abnormal [facility]; [facility] Work Phone: Comment on above: PATIENT WAS FASTINGP ERFORMED BY: MIRIAM LabMargarita Vinbzz2270 [facility] [id number] Cholesterol in LDL/Cholesterol in HDL [Mass ratio] 6.1 {ratio} Abnormal 0.0-3.6 [facility]; [facility] Work Phone: Comment on above: LDL/HDL Ratio Men Wo men 1/2 Avg.Risk 1.0 1.5 Avg.Risk 3.6 3.2 2X Avg.Risk 6.2 5.0 3X Avg.Risk 8.0 6.1 PATIENT WAS FASTINGP ERFORMED BY: MIRIAM LabMargarita Tyaxar8166 [facility] [id number] Triglyceride [Mass/Vol] 230 mg/dL Abnormal 0-149 [facility]; [facility] Work Phone: Comment on above: PATIENT WAS FASTINGP ERFORMED BY: MIRIAM LabCopetr Hgrwcv4073 [facility] ServicesOur [facility] [id number] LIPID PANEL (20441) 164 mg/dL Abnormal 0-99 [facility]pr [facility]; [facility] Work Phone: Comment on above: PATIENT WAS FASTINGP ERFORMED BY: MIRIAM LabMargarita Ivzztv4476 [employer] Digital Servicesblin [place] [id number] LIPID PANEL (92026) 43 mg/dL Abnormal 5-40 [facility] Internal Medicine; [facility] Work Phone: Comment on above: PATIENT WAS FASTINGP ERFORMED BY: MIRIAM [facility] Atmeoh8980 [address] Roadbl[address] [place] [id number] LIPID PANEL (99121) 6.1 {ratio} Abnormal 0.0-3.6 [facility] Internal Medicine; [facility] Work Phone: Metabolic Panel, Comprehensi ve (15037)Ordered By: Car Repairer Helper on 09-19-2020 Albumin [Mass/Vol] 4.2 g/dL Normal 3.8-4.8 [facility] Internal Medicine; [facility] Work Phone: Comment on above: PATIENT WAS FASTINGP ERFORMED BY: CB [facility] Cnpirr8148 [address] [facility]in [place] [id number] Albumin/Globulin [Mass ratio] 1.6 {ratio} Normal 1.2-2.2 [facility]; [facility] Work Phone: Comment on above: PATIENT WAS FASTINGP ERFORMED BY: CB [facility] Tpyoai5981 [address] [facility] [place] [id number] ALP [Catalytic activity/Vol] 116 [iU]/L Normal 39-117 [facility]; [facility] Work Phone: Comment on above: PATIENT WAS FASTINGP ERFORMED BY: CB [facility] Mrduqy1465 [address] [facility] Hospitalbl[facility] [place] [id number] ALP [Catalytic activity/Vol] 116 U/L Normal 39-117 [facility]; [facility] Work Phone: ALT [Catalytic activity/Vol] 19 [iU]/L Normal 0-44 [facility]; [facility] Work Phone: Comment on above: PATIENT WAS FASTINGP ERFORMED BY: CB [facility] Hdgwnz4774 [address] RoadDublin [place] [id number] ALT [Catalytic activity/Vol] 19 U/L Normal 0-44 [facility]; [facility] Work Phone: AST [Catalytic activity/Vol] 20 [iU]/L Normal 0-40 [facility]; [facility] Work Phone: Comment on above: PATIENT WAS FASTINGP ERFORMED BY: MIRIAM LabCopetr Lncnsx3301 [address] RoadDublin [place] [id number] AST [Catalytic activity/Vol] 20 U/L Normal 0-40 [facility]; [facility] Work Phone: Bilirubin [Mass/Vol] 0.2 mg/dL Normal 0.0-1.2 [facility] rehensive Internal Medicine; [facility] Work Phone: Comment on above: PATIENT WAS FASTINGP ERFORMED BY: MIRIAM LabCo Idhzae7178 [address] RoadDublin [place] [id number] Calcium [Mass/Vol] 9.6 mg/dL Normal 8.6-10.2 [facility] Internal Medicine; [facility] Work Phone: Comment on above: PATIENT WAS FASTINGP ERFORMED BY: MIRIAM LabCo Cfjkio6761 [address] RoadDublin [place] [id number] Chloride [Moles/Vol] 101 mmol/L Normal 96-106 [facility] rehensive Internal Medicine; [facility] Work Phone: Comment on above: PATIENT WAS FASTINGP ERFORMED BY: [facility] Nznedt7572 [address] RoadDublin [place] [id number] CO2 [Moles/Vol] 24 mmol/L Normal 20-29 [facility] Internal Medicine; [facility] Work Phone: Comment on above: PATIENT WAS FASTINGP ERFORMED BY: LabCo Ggnwwh8046 [address] RoadDublin [place] [id number] Creatinine [Mass/Vol] 0.98 mg/dL Normal 0.76-1.27 [facility]; [facility] Work Phone: Comment on above: PATIENT WAS FASTINGP ERFORMED BY: [facility] Gabuhb9414 [address] RoadDublin [place] [id number] GFR/1.73 sq M predicted among blacks CKD-EPI (S/P/Bld) [Vol rate/Area] 96 mL/min/1.73 Normal [facility]; [facility] Work Phone: Comment on above: PATIENT WAS FASTINGP ERFORMED BY: MIRIAM [facility] Deyfyi3203 [facility]in [place] [id number] GFR/1.73 sq M predicted among non-blacks CKD-EPI (S/P/Bld) [Vol rate/Area] 83 mL/min/1.73 Normal [facility]; [facility] Work Phone: Comment on above: PATIENT WAS FASTINGP ERFORMED BY: MIRIAM [facility] Qjzoal9406 [facility] [id number] Globulin (S) [Mass/Vol] 2.6 g/dL Normal 1.5-4.5 [facility] Internal Medicine; [facility] Work Phone: Comment on above: PATIENT WAS FASTINGP ERFORMED BY: MIRIAM [facility] Honbtd6483 [facility] [id number] Glucose [Mass/Vol] 220 mg/dL Abnormal 65-99 [facility] Internal Medicine; [facility] Work Phone: Comment on above: PATIENT WAS FASTINGP ERFORMED BY: MIRIAM LabCharlotte Bkkhze3088 [facility] [id number] Potassium [Moles/Vol] 4.6 mmol/L Normal 3.5-5.2 [facility] prehensive Internal Medicine; [facility] Work Phone: Comment on above: PATIENT WAS FASTINGP ERFORMED BY: MIRIAM [facility] Yropkp2727 [facility] [id number] Protein [Mass/Vol] 6.8 g/dL Normal 6.0-8.5 [facility] Internal Medicine; [facility] Work Phone: Comment on above: PATIENT WAS FASTINGP ERFORMED BY: MIRIAM [facility] Lfeyef9819 [facility] [id number] Sodium [Moles/Vol] 139 mmol/L Normal 134-144 [facility] Internal Medicine; [facility] Work Phone: Comment on above: PATIENT WAS FASTINGP ERFORMED BY: MIRIAM [facility] Ppwveg4050 [facility] [id number] Urea nitrogen [Mass/Vol] 13 mg/dL Normal 8-27 [facility]; [facility] Work Phone: Comment on above: PATIENT WAS FASTINGP ERFORMED BY: [facility] Erupsu0384 [facility] [id number] Urea nitrogen/Creatinine [Mass ratio] 13 mg/mg Normal 10-24 [facility]; [facility] Work Phone: Comment on above: PATIENT WAS FASTINGP ERFORMED BY: [facility] Qlxoqz1824 [facility] [id number] TSH (THYROID STIMULATING HOR ARMANDO) ([id number])Ordered By: Car Repairer Helper on 09-19-2020 TSH Qn 1.620 {uIU/mL} Normal 0.450-4.50 0 [facility]; [facility] Work Phone: Comment on above: PATIENT WAS FASTINGP ERFORMED BY: Lab[facility] St[facility] Gfgbbh3931 [facility] [id number] Blood Glucose , Office ([phone])Ordered By: Hayden Galicia on 02-06-2020 Glucose Glucometer (BldC) [Moles/Vol] 204 1 Normal [facility] Work Phone: CBC, Platelets & Auto Diff ( [phone])Ordered By: Car Repairer Helper on 02-06-2020 Basophils (Bld) [#/Vol] 0.1 {x10E3/uL} Normal 0.0-0.2 [facility] Work Phone: Comment on above: PATIENT WAS FASTINGP ERFORMED BY: [facility] Emgbih3658 [facility] [id number] Basophils (Bld) [#/Vol] 0.1 10*3/uL Normal 0.0-0.2 [facility]; [facility] Work Phone: Basophils/100 WBC (Bld) 1 % Normal [facility] Work Phone: Comment on above: PATIENT WAS FASTINGP ERFORMED BY: [facility] Ivbmev4442 [facility] [id number] Eosinophils (Bld) [#/Vol] 0.1 {x10E3/uL} Normal 0.0-0.4 [facility] Work Phone: Comment on above: PATIENT WAS FASTINGP ERFORMED BY: [facility]6370 [facility] [id number] Eosinophils (Bld) [#/Vol] 0.1 10*3/uL Normal 0.0-0.4 [facility]; [facility] Work Phone: Eosinophils/100 WBC (Bld) 1 % Normal [facility] Work Phone: Comment on above: PATIENT WAS FASTINGP ERFORMED BY: [place] [id number] [facility] [id number] Erythrocyte distribution width (RBC) [Ratio] 12.8 % Normal 11.6-15.4 [facility] Work Phone: Comment on above: PATIENT WAS FASTINGP ERFORMED BY: [place] [id number] [facility] [id number] Hematocrit (Bld) [Volume fraction] 47.1 % Normal 37.5-51.0 [facility] Work Phone: Comment on above: PATIENT WAS FASTINGP ERFORMED BY: [facility]6370 [facility] [id number] Hemoglobin (Bld) [Mass/Vol] 15.7 g/dL Normal 13.0-17.7 [facility] Work Phone: Comment on above: PATIENT WAS FASTINGP ERFORMED BY: [facility]6370 [facility] [id number] Immature granulocytes (Bld) [#/Vol] 0.1 {x10E3/uL} Normal 0.0-0.1 [facility] Work Phone: Comment on above: PATIENT WAS FASTINGP ERFORMED BY: [facility]6370 [facility] [id number] Immature granulocytes (Bld) [#/Vol] 0.1 10*3/uL Normal 0.0-0.1 [facility]; [facility] Work Phone: Immature granulocytes/100 WBC (Bld) 1 % Normal [facility] Work Phone: Comment on above: PATIENT WAS FASTINGP ERFORMED BY: MIRIAM LabCo Tswnho7813 [address] RoadDublin [place] [id number] Lymphocytes (Bld) [#/Vol] 2.2 {x10E3/uL} Normal 0.7-3.1 [facility] Work Phone: Comment on above: PATIENT WAS FASTINGP ERFORMED BY: LabCoChristian Health Care CenterCwvzai3390 [address] RoadUnc Health Blue Ridge - Morgantonin [place] [id number] Lymphocytes (Bld) [#/Vol] 2.2 10*3/uL Normal 0.7-3.1 [facility]; [facility] Work Phone: Lymphocytes/100 WBC (Bld) 25 % Normal [facility] Work Phone: Comment on above: PATIENT WAS FASTINGP ERFORMED BY: LabScheurer Hospital6370 [address] [facility]in [place] [id number] MCH (RBC) [Entitic mass] 31.8 pg Normal 26.6-33.0 [facility] Internal Medicine Work Phone: Comment on above: PATIENT WAS FASTINGP ERFORMED BY: LabMer[facility] St[facility] Stcnxm3121 [address] [facility]in [place] [id number] MCHC (RBC) [Mass/Vol] 33.3 g/dL Normal 31.5-35.7 [facility] prehensive Internal Medicine Work Phone: Comment on above: PATIENT WAS FASTINGP ERFORMED BY: [facility] Udetmu5718 [address] [facility] GladwinDublin [place] [id number] MCV (RBC) [Entitic vol] 95 fL Normal 79-97 [facility] Internal Medicine Work Phone: Comment on above: PATIENT WAS FASTINGP ERFORMED BY: [facility] Gldwwn5035 [address] RoadDublin [place] [id number] Monocytes (Bld) [#/Vol] 0.9 {x10E3/uL} Normal 0.1-0.9 [facility] Work Phone: Comment on above: PATIENT WAS FASTINGP ERFORMED BY: MIRIAM [facility] Zpyjma6699 [facility] [id number] Monocytes (Bld) [#/Vol] 0.9 10*3/uL Normal 0.1-0.9 [facility]; [facility] Work Phone: Monocytes/100 WBC (Bld) 10 % Normal [facility] Work Phone: Comment on above: PATIENT WAS FASTINGP ERFORMED BY: MIRIAM LabCoChristian Health Care CenterMoovvg5700 [facility] [id number] Neutrophils (Bld) [#/Vol] 5.4 {x10E3/uL} Normal 1.4-7.0 [facility] Work Phone: Comment on above: PATIENT WAS FASTINGP ERFORMED BY: MIRIAM LabMer[facility] Xydwjq4781 [facility] [id number] Neutrophils (Bld) [#/Vol] 5.4 10*3/uL Normal 1.4-7.0 [facility]; [facility] Work Phone: Neutrophils/100 WBC (Bld) 62 % Normal [facility] Work Phone: Comment on above: PATIENT WAS FASTINGP ERFORMED BY: MIRIAM LabMer[facility] Kguppp3803 [facility] [id number] Platelets (Bld) [#/Vol] 186 {x10E3/uL} Normal 150-450 [facility] Work Phone: Comment on above: PATIENT WAS FASTINGP ERFORMED BY: [facility] Iybtjr0225 [facility] [id number] Platelets (Bld) [#/Vol] 186 10*3/uL Normal 150-450 [facility]; [facility] Work Phone: RBC (Bld) [#/Vol] 4.94 {x10E6/uL} Normal 4.14-5.80 [facility] Internal Medicine Work Phone: Comment on above: PATIENT WAS FASTINGP ERFORMED BY: MIRIAM [facility] Rsecbm8419 [facility] [id number] RBC (Bld) [#/Vol] 4.94 10*6/uL Normal 4.14-5.80 [facility]; [facility] Work Phone: WBC (Bld) [#/Vol] 8.6 {x10E3/uL} Normal 3.4-10.8 [facility] Work Phone: Comment on above: PATIENT WAS FASTINGP ERFORMED BY: [facility] Azkewl5088 [facility] [id number] WBC (Bld) [#/Vol] 8.6 10*3/uL Normal 3.4-10.8 [facility] Internal Medicine; [facility] Work Phone: HgA1C , Office ([phone])Ordere d By: Hayden Galicia on 02-06-2020 HbA1c (Bld) [Mass fraction] 8.4 % Abnormal 4.6 - 7.1 [facility] Work Phone: LIPID PANEL (88346)Ordered B y: Car Repairer Helper on 02-06-2020 Cholesterol [Mass/Vol] 265 mg/dL Abnormal 100-199 [facility] Work Phone: Comment on above: PATIENT WAS FASTINGP ERFORMED BY: LabUlulerp Pivqem6495 [facility] [id number] Cholesterol in HDL [Mass/Vol] 31 mg/dL Abnormal [facility] Work Phone: Comment on above: PATIENT WAS FASTINGP ERFORMED BY: [facility] Fjnhqr5626 [facility] [id number] Cholesterol in LDL/Cholesterol in HDL [Mass ratio] 5.1 {ratio} Abnormal 0.0-3.6 [facility] Work Phone: Comment on above: LDL/HDL Ratio Men Wo men 1/2 Avg.Risk 1.0 1.5 Avg.Risk 3.6 3.2 2X Avg.Risk 6.2 5.0 3X Avg.Risk 8.0 6.1 PATIENT WAS FASTINGP ERFORMED BY: MIRIAM Klein6370 [address] [facility] [id number] Triglyceride [Mass/Vol] 391 mg/dL Abnormal 0-149 [facility] Work Phone: Comment on above: PATIENT WAS FASTINGP ERFORMED BY: MIRIAM Klein6370 [address] [facility] [id number] LIPID PANEL (57212) 75 mg/dL Abnormal 5-40 Compr ensive Internal Medicine Work Phone: Comment on above: PATIENT WAS FASTINGP ERFORMED BY: MIRIAM Treviñolin6370 [address] [facility] [id number] LIPID PANEL (46278) 159 mg/dL Abnormal 0-99 [facility] Work Phone: Comment on above: PATIENT WAS FASTINGP ERFORMED BY: MIRIAM Treviñolin6370 [address] [facility] [id number] LIPID PANEL (69048) 5.1 {ratio} Abnormal 0.0-3.[address] [facility]; [facility] Work Phone: MICROALBUMINOrdered By: Syst em Gospel Worker on 02-06-2020 Albumin DL <= 20 mg/L (U) [Mass/Vol] 10.4 ug/mL Normal [facility] Work Phone: Comment on above: PATIENT WAS FASTINGP ERFORMED BY: MIRIAM Treviñolin6370 [facility] [id number] Albumin/Creatinine (U) [Mass ratio] 9 {mg/g_creat} Normal 0-29 [facility] Work Phone: Comment on above: Normal: 0 - 29 Moder ately increased: 30 - 300 Severely increased: >300 Please note reference interval change PATIENT WAS FASTINGP ERFORMED BY: MIRIAM LabCopetr Zzqjgp1196 [address] [facility] [id number] Creatinine (U) [Mass/Vol] 119.6 mg/dL Normal [facility] Work Phone: Comment on above: PATIENT WAS FASTINGP ERFORMED BY: MIRIAM LabCopetr TreviñoGnctol8591 [facility] [id number] Metabolic Panel, Comprehensi ve ([id number])Ordered By: Car Repairer Helper on 02-06-2020 Albumin [Mass/Vol] 4.3 g/dL Normal 3.8-4.8 [facility] Internal Medicine Work Phone: Comment on above: PATIENT WAS FASTINGP ERFORMED BY: CB [facility] Ucfbrf5224 [address] RoadDublin [place] [id number] Albumin/Globulin [Mass ratio] 1.7 {ratio} Normal 1.2-2.2 [facility] Work Phone: Comment on above: PATIENT WAS FASTINGP ERFORMED BY: CB [facility] Zlymqn6512 [address] RoadDublin [place] [id number] ALP [Catalytic activity/Vol] 108 [iU]/L Normal 39-117 [facility] Work Phone: Comment on above: PATIENT WAS FASTINGP ERFORMED BY: CB [facility] Fceieh5628 [address] RoadDublin [place] [id number] ALP [Catalytic activity/Vol] 108 U/L Normal 39-117 [facility]; [facility] Work Phone: ALT [Catalytic activity/Vol] 26 [iU]/L Normal 0-44 [facility] Work Phone: Comment on above: PATIENT WAS FASTINGP ERFORMED BY: CB [facility] Fwqzhj6745 [address] RoadDublin [place] [id number] ALT [Catalytic activity/Vol] 26 U/L Normal 0-44 [facility]; [facility] Work Phone: AST [Catalytic activity/Vol] 23 [iU]/L Normal 0-40 [facility] Work Phone: Comment on above: PATIENT WAS FASTINGP ERFORMED BY: CB [facility] Arbiin7448 [address] RoadDublin [place] [id number] AST [Catalytic activity/Vol] 23 U/L Normal 0-40 [facility]; [facility] Work Phone: Bilirubin [Mass/Vol] 0.2 mg/dL Normal 0.0-1.2 Comp rehensive Internal Medicine Work Phone: Comment on above: PATIENT WAS FASTINGP ERFORMED BY: CB [facility] Tfoccj4419 [address] RoadDublin [place] [id number] Calcium [Mass/Vol] 9.4 mg/dL Normal 8.6-10.2 [facility] Internal Medicine Work Phone: Comment on above: PATIENT WAS FASTINGP ERFORMED BY: CB [facility] Lqdqve6537 [address] RoadDublin [place] [id number] Chloride [Moles/Vol] 103 mmol/L Normal 96-[address] [facility] Work Phone: Comment on above: PATIENT WAS FASTINGP ERFORMED BY: CB [facility] Bnulxj8149 [address] RoadDublin [place] [id number] CO2 [Moles/Vol] 20 mmol/L Normal 20-29 [facility] Internal Medicine Work Phone: Comment on above: PATIENT WAS FASTINGP ERFORMED BY: CB [facility] Fsyfzk4061 [address] RoadDublin [place] [id number] Creatinine [Mass/Vol] 0.90 mg/dL Normal 0.76-1.27 [facility] Work Phone: Comment on above: PATIENT WAS FASTINGP ERFORMED BY: CB [facility] Raqrwd7007 [address] RoadDublin [place] [id number] GFR/1.73 sq M predicted among blacks CKD-EPI (S/P/Bld) [Vol rate/Area] 106 mL/min/1.73 Normal [facility] Work Phone: Comment on above: PATIENT WAS FASTINGP ERFORMED BY: CB [facility] Reeqzo8943 [address] RoadDublin [place] [id number] GFR/1.73 sq M predicted among non-blacks CKD-EPI (S/P/Bld) [Vol rate/Area] 92 mL/min/1.73 Normal [facility] Work Phone: Comment on above: PATIENT WAS FASTINGP ERFORMED BY: CB [facility] Xcuvai3597 [address] RoadDublin [place] [id number] Globulin (S) [Mass/Vol] 2.5 g/dL Normal 1.5-4.5 [facility] Internal Medicine Work Phone: Comment on above: PATIENT WAS FASTINGP ERFORMED BY: MIRIAM [facility] Chiaru4932 [address] RoadDublin [place] [id number] Glucose [Mass/Vol] 209 mg/dL Abnormal 65-99 [facility] Internal Medicine Work Phone: Comment on above: PATIENT WAS FASTINGP ERFORMED BY: CB [facility] Kyobta4469 [address] RoadDublin [place] [id number] Potassium [Moles/Vol] 4.4 mmol/L Normal 3.5-5.2 [facility] Internal Medicine Work Phone: Comment on above: PATIENT WAS FASTINGP ERFORMED BY: MIRIAM [facility] Rsuexc4006 [address] RoadDublin [place] [id number] Protein [Mass/Vol] 6.8 g/dL Normal 6.0-8.5 [facility] Internal Medicine Work Phone: Comment on above: PATIENT WAS FASTINGP ERFORMED BY: [facility] Dyyzup4275 [address] RoadDublin [place] [id number] Sodium [Moles/Vol] 139 mmol/L Normal 134-144 [facility] Internal Medicine Work Phone: Comment on above: PATIENT WAS FASTINGP ERFORMED BY: [facility] Krnuup9442 [address] RoadDuin [place] [id number] Urea nitrogen [Mass/Vol] 12 mg/dL Normal 8-27 [facility] Internal Medicine Work Phone: Comment on above: PATIENT WAS FASTINGP ERFORMED BY: [facility] Ngtobd6813 [address] RoadDublin [place] [id number] Urea nitrogen/Creatinine [Mass ratio] 13 mg/mg Normal 10-24 [facility] Internal Medicine Work Phone: Comment on above: PATIENT WAS FASTINGP ERFORMED BY: CB [facility] Mrkewp0596 [address]eral[address] RoadDublin [place] [id number] PSA (PROSTATE SPECIFIC ANTIG EN) (V76.44)Ordered By: Car Repairer Helper on 02-06-2020 Prostate specific Ag [Mass/Vol] 0.3 ng/mL Normal 0.0-4.0 [facility] Work Phone: Comment on above: Kenna ECLIA methodol ogy. .According to the [employer], Serum PSA shoulddecrease and remain [...] malignant disease. PATIENT WAS FASTINGP ERFORMED BY: Acousticeye6370 [facility] [id number] TSH ([id number])Ordered By: Jackie Powell on 02-06-2020 TSH Qn 1.380 {uIU/mL} Normal 0.450-4.50 0 [facility] Work Phone: Comment on above: PATIENT WAS FASTINGP ERFORMED BY: Acousticeye6370 [facility] [id number] Blood Glucose , Office ([phone] 2)Ordered By: Hayden Galicia on 11-04-2019 Glucose Glucometer (BldC) [Moles/Vol] 236 1 Normal [facility] Work Phone: HgA1C , Office ([phone])Ordere d By: Hayden Galicia on 11-04-2019 HbA1c (Bld) [Mass fraction] 7.8 % Abnormal 4.6 - 7.1 [facility] Work Phone: FLU A+B DIRECT AG, (RAPID) ( [id number])Ordered By: Pili Ferreira on 08-15-2019 FLUAV+FLUBV Ag Ql (Unsp spec) Positive Normal [facility] Work Phone: FLUAV+FLUBV Ag Ql (Unsp spec) Positive Normal [facility]; [facility] Work Phone: Blood Glucose , Office ([phone] 2)Ordered By: Hayden Galicia on 07-05-2019 Glucose Glucometer (BldC) [Moles/Vol] 262 1 Normal [facility] Work Phone: HgA1C , Office (81852)Ordere d By: Hayden Galicia on 07-05-2019 HbA1c (Bld) [Mass fraction] 10.4 % Abnormal 4.6 - 7.1 [facility] Work Phone: Blood Glucose , Office ([phone] 2)Ordered By: Hayden Galicia on 07-20-2018 Glucose Glucometer molar conc (BldC) 164 1 Normal [facility] Work Phone: HgA1C , Office (58618)Ordere d By: Hayden Galicia on 07-20-2018 Hemoglobin A1c/Hemoglobin.total mass fraction (Bld) 9.4 % Abnormal 4.6 - 7.1 Comprehensiv e [facility] Work Phone: Blood Glucose , Office ([phone] 2)Ordered By: Hattie Ellis on 03-23-2018 Glucose Glucometer molar conc (BldC) 124 1 Normal [facility] Work Phone: HgA1C , Office (73142)Ordere d By: Hattie Ellis on 03-23-2018 Hemoglobin A1c/Hemoglobin.total mass fraction (Bld) 8.5 % Abnormal 4.6 - 7.1 Comprehensiv e [facility] Work Phone: CDIFF (Molecular)Ordered By: Car Repairer Helper on 12-05-2017 C. difficile DNA BEN+probe Ql (Unsp spec) See Note Normal [facility] Work Phone: Comment on above: Cdiff-MolecularNorma l Reference Range = Negative C. Diff DNA Negative- No toxigenic C. Diff DNA DetectedNAAT METHOD Testing was performed using nucleic acid amplification [facility] [address] [place], [place], [id number] ENTERIC PATHOGEN PANEL STOOL Ordered By: Car Repairer Helper on 12-05-2017 ENTERIC PATHOGEN PANEL STOOL See Note Normal [facility] Work Phone: Comment on above: EP PANEL STOOL * This is an amended result. * A prior result that was reported as final has been changed. 12/17/17820 by SISI Previously reported as: SALMONELLA SPECIES Normal Reference Range = Not Detected Salmonella species detected. Susceptibility testing not routinely performed but can be completed at the request by the ordering physician. Treatment is often not needed in many cases. This is an amplified DNA test which makes it both specific and sensitive. Copy of report sent to Infection Control Printer [id number] 12/05/17 0379 SISI. RESULTS PAGED TO DR NEVILLE 12/05/17 1086 Yulia Pickett. [facility] FINAL REPORT IDENTIFICATION Salmonella [place] TESTING PERFORMED AT . ORIGINAL REPORT ON FILE IN LAB CONTAINS ADDITIONAL TEST SITE INFORMATION. CAMPYLOBACTER Not DetectedSalmonella Salmonella sp. DetectedShigella sp. Not DetectedShiga Toxin Not DetectedYersinia Not DetectedVIBRIO Not DetectedNorovirus Not DetectedRotavirus Not Detected [facility] X[address] [facility] [place], [place], [phone] O + POVA AND PARASIT ES EXAM, ROUTINE These results were obtained using wet preparation(s) and trichrome stained smear. This test does not include testing for Crytosporidium parvum, Cyclospora, or Microsporidia. TESTING PERFORMED AT [facility]. ORIGINAL REPORT ON FILE IN LAB CONTAINS ADDITIONAL TEST SITE INFORMATION. Ova/Parasite Exam NO OVA, CYSTS, OR PARASITES FOUND. Stool Occult Blood iFOBOrder ed By: Car Repairer Helper on 12-05-2017 Lower GI hemoglobin IA Ql (St) See Note Normal [facility] Work Phone: Comment on above: STOB iFOBOccult Bloo d Positive ORGANISM 1: OCCULT BLOOD POSITIVE [facility] [address] [place], [place], [address] CBC W/Diff, AutomatedOrdered By: Car Repairer Helper on 12-04-2017 Absolute Neut 5.1 {X10_3/uL} Normal 2.0-7.7 Compreh ensive Internal Medicine Work Phone: Comment on above: [facility] [address] [place], [place], [phone] Basophils/100 WBC (Bld) 0.4 % Normal 0-1 [facility] Work Phone: Comment on above: [facility] [address] [place], [place], [phone] Eosinophils/100 WBC (Bld) 0.2 % Normal 0-5 [facility] Work Phone: Comment on above: [facility] [address] [place], [address] Erythrocyte distribution width Ratio (RBC) 13.4 % Normal 11.6-14.6 [facility] Work Phone: Comment on above: [facility] [address] [place], [place], [phone] Hematocrit Volume Fraction (Bld) 47.4 % Normal 40-54 [facility] Work Phone: Comment on above: [facility] [address] [place], [address] Hemoglobin mass conc (Bld) 16.9 g/dL Abnormal 13.0-16.5 [facility] Work Phone: Comment on above: [facility] [address] [place], [address] IM GRAN % 0.300 % Normal 0.0-0.9 [facility] Work Phone: Comment on above: IG% - Immature Granu locytes (promyelocytes, myelocytes andmetamyelocytes) > 1% indicates that a LEFT SHIFT is Present. [facility] [address] [place], [place], [phone] Lymphocytes #/vol (Bld) 1.49 {X10_3/ul} Normal 0.83-4.51 [facility] Work Phone: Comment on above: [facility] [address] [place], [address] Lymphocytes/100 WBC (Bld) 16.7 % Abnormal 19-41 [facility] Work Phone: Comment on above: [facility] [address] [place], [address] MCH Entitic mass (RBC) 32.7 pg Abnormal 27.0-32.0 [facility] Work Phone: Comment on above: [facility] [address] [place], [address] MCHC mass conc (RBC) 35.7 {g/gl} Normal 32-36 [facility] prehensive Internal Medicine Work Phone: Comment on above: [facility] [address] [place], [address] MCV Entitic volume (RBC) 91.7 fL Normal 80-94 [facility] Work Phone: Comment on above: [facility] [address] [place], [address] Monocytes/100 WBC (Bld) 25.0 % Abnormal 0-10 [facility] Work Phone: Comment on above: [facility] [address] [place], [address] Neutrophils/100 WBC (Bld) 57.4 % Normal 47-70 [facility] Work Phone: Comment on above: [facility] [address] [place], [address] Platelet mean volume Entitic volume (Bld) 11.2 fL Normal 6.2-12.0 Comprehensi Internal Medicine Work Phone: Comment on above: [facility] [address] [place], [address] Platelets #/vol (Bld) 174 10*3/uL Normal 150-450 [facility] centerensive [facility] Work Phone: Comment on above: [facility] [address] [place], [address] Platelets #/vol (Bld) ADEQUATE Normal Com prehensive Internal Medicine Work Phone: Comment on above: [facility] [address] [place], [address] RBC #/vol (Bld) 5.17 {M/mm3} Normal 4.6-6.2 Compreh ensive Internal Medicine Work Phone: Comment on above: [facility] [address] [place], [address] RDW SD 44.3 fL Abnormal 35.1-43.9 [facility] Work Phone: Comment on above: [facility] [address] [place], [address] WBC #/vol (Bld) 8.9 10*3/uL Normal 4.4-11.0 Comprehe nsive Internal Medicine Work Phone: Comment on above: [facility] [address] [place], [place], [address] CBC W/Diff, Automated SEE COMMENT Normal Co mprehensive [facility] Medicine Work Phone: Comment on above: MONOCYTOSIS NOTED [facility] [address] [place], [place], [address] CBC W/Diff, Automated RARE Normal Com prehensive Internal Medicine Work Phone: Comment on above: [facility] [address] [place], [place], [address] CBC W/Diff, Automated Reviewed Normal Com prehensive Internal Medicine Work Phone: Comment on above: PolycythemiaClinical correlation necessary.Trev Epperson M.D. 12/07/17Pathologist comment added AMENDED REPORT 12/07/17 1326 PATH REV previously reported as: May kaley [facility] [address] [place], [place], [address] Comprehensive Metabolic Prof ilOrdered By: Car Repairer Helper on 12-04-2017 Comprehensive metabolic 2000 panel 13 mg/dL Normal 7-18 Comprehensi ve Internal Medicine Work Phone: Comment on above: [facility] [address] [place], [place], [address] Comprehensive metabolic 2000 panel 9 1 Normal 5-15 Comprehensi ve Internal Medicine Work Phone: Comment on above: [facility] [address] [place], [place], [phone] Comprehensive metabolic 2000 panel 1.00 mg/dL Normal 0.70-1.30 Comprehensi ve Internal Medicine Work Phone: Comment on above: The validity of the calculated GFR AND GFRAA in patients over70 years has not been determined. Clinical correlation isessential. [facility] [address] [place], [place], [address] Comprehensive metabolic 2000 panel 132 mmol/L Abnormal 136-145 Comprehensi ve Internal Medicine Work Phone: Comment on above: [facility] [address] [place], [place], [address] Comprehensive metabolic 2000 panel 24.0 mmol/L Normal 21.0-32.0 Comprehensi ve Internal Medicine Work Phone: Comment on above: [facility] [address] [place], [place], [address] Comprehensive metabolic 2000 panel 135 mg/dL Abnormal 74-106 Comprehensi ve Internal Medicine Work Phone: Comment on above: Fasting Glucose resu lt greater than or equal to 126 mg/dLsuggests DIABETES MELLITUS per A.D.A. criteria.Please note revised GLUCOSE reference range vybvrtsly71/02/2018. [facility] [address] [place], [place], [phone] Comprehensive metabolic 2000 panel 54 U/L Normal 16-61 Comprehensi ve Internal Medicine Work Phone: Comment on above: [facility] [address] [place], [place], [address] Comprehensive metabolic 2000 panel 0.90 mg/dL Normal 0.20-1.00 Comprehensi ve Internal Medicine Work Phone: Comment on above: [facility] [address] [place], [place], [address] Comprehensive metabolic 2000 panel 82 mL/min Normal Comprehensi ve Internal Medicine Work Phone: Comment on above: Non- GFR Calc [facility] [address] [place], [place], [address] Comprehensive metabolic 2000 panel 8.6 mg/dL Normal 8.5-10.1 Comprehensi ve Internal Medicine Work Phone: Comment on above: [facility] [address] [place], [address] Comprehensive metabolic 2000 panel 0.8 {RATIO} Abnormal 0.9-2.4 Comprehensi ve Internal Medicine Work Phone: Comment on above: [facility] [address] [place], [address] Comprehensive metabolic 2000 panel 99 mL/min Normal Comprehensi ve Internal Medicine Work Phone: Comment on above: GFR Calc [facility] [address] [place], [address] Comprehensive metabolic 2000 panel 99 mmol/L Normal 98-107 Comprehensi ve Internal Medicine Work Phone: Comment on above: [facility] [address] [place], [address] Comprehensive metabolic 2000 panel 4.2 g/dL Normal 2.2-4.2 Comprehensi ve Internal Medicine Work Phone: Comment on above: [facility] [address] [place], [address] Comprehensive metabolic 2000 panel 3.5 mmol/L Normal 3.5-5.1 Comprehensi ve Internal Medicine Work Phone: Comment on above: [facility] [address] [place], [address] Comprehensive metabolic 2000 panel 13.1 {RATIO} Normal 10-20 Comprehensi ve Internal Medicine Work Phone: Comment on above: [facility] [address] [place], [address] Comprehensive metabolic 2000 panel 117 U/L Normal 45-117 Comprehensi ve Internal Medicine Work Phone: Comment on above: [facility] [address] [place], [address] Comprehensive metabolic 2000 panel 7.7 g/dL Normal 6.4-8.2 Comprehensi ve Internal Medicine Work Phone: Comment on above: [facility] [address] [place], [place], [address] Comprehensive metabolic 2000 panel 48 U/L Abnormal 15-37 Comprehensi ve Internal Medicine Work Phone: Comment on above: [facility] [address] [place], [place], [address] Comprehensive metabolic 2000 panel 3.5 g/dL Normal 3.2-5.0 Comprehensi ve Internal Medicine Work Phone: Comment on above: [facility] [address] [place], [place], [id number] [id number]-[id number]-[id number] (821 05)Ordered By: Car Repairer Helper on 11-20-2017 AFP.tumor marker mass conc 4.5 ng/mL Normal 0.0-8.3 [facility] Work Phone: Comment on above: Kenna ECLIA methodol ogy PATIENT NOT FASTINGP ERFORMED BY: MIRIAM VODECLIC70 [facility] [id number] Blood Glucose , Office (8296 2)Ordered By: Pili Ferreira on 11-20-2017 Glucose Glucometer molar conc (BldC) 104 1 Normal [facility] Work Phone: HEPATITIS PANEL (85398)Order ed By: Car Repairer Helper on 11-20-2017 HAV IgM IA Ql Negative Normal Comprehensi ve Internal Medicine Work Phone: Comment on above: PATIENT NOT FASTINGP ERFORMED BY: MIRIAM [facility] Jivjal1582 [facility] [id number] HAV IgM IA Ql Negative Normal Comprehensi ve Internal Medicine; [facility] Work Phone: HBV core IgM IA Ql Negative Normal Compre hensive Internal Medicine Work Phone: Comment on above: PATIENT NOT FASTINGP ERFORMED BY: RunRev70 [facility] [id number] HBV core IgM IA Ql Negative Normal Compre hensive Internal Medicine; [facility] Work Phone: HBV surface Ag IA Ql Negative Normal Comp rehensive Internal Medicine Work Phone: Comment on above: PATIENT NOT FASTINGP ERFORMED BY: MIRIAM VODECLIC70 [employer] [place] [id number] HBV surface Ag IA Ql Negative Normal [...] with a HCV Nucleic Acid Amplification test ([id number]). PATIENT NOT FASTINGP ERFORMED BY: MIRIAM Bluechilli6370 [employer] [place] [id number] HgA1C , Office (88898)Ordere d By: Pili Ferreira on 11-20-2017 Hemoglobin A1c/Hemoglobin.total mass fraction (Bld) 7.6 % Abnormal 4.6 - 7.1 Comprehensiv e Internal Medicine Work Phone: Metabolic Panel, Comprehensi ve (43839)Ordered By: Car Repairer Helper on 11-20-2017 Albumin mass conc 4.3 g/dL Normal 3.5-5.5 Compreh ensive Internal Medicine Work Phone: Comment on above: PATIENT NOT FASTINGP ERFORMED BY: Acousticeye6370 [facility] [id number] Albumin/Globulin mass ratio 1.7 {ratio} Normal 1.2-2.2 [facility] Work Phone: Comment on above: PATIENT NOT FASTINGP ERFORMED BY: Acousticeye6370 [facility] [id number] ALP [Catalytic activity/Vol] 116 U/L Normal 39-117 [facility]; [facility] Work Phone: ALP enzyme act/vol 116 [iU]/L Normal 39-117 Compre [facility] Internal Medicine Work Phone: Comment on above: PATIENT NOT FASTINGP ERFORMED BY: CB [facility] Yulmxv1689 [address] RoadDublin [place] [id number] ALT [Catalytic activity/Vol] 93 U/L Abnormal 0-44 [facility]; [facility] Work Phone: ALT enzyme act/vol 93 [iU]/L Abnormal 0-44 [facility] Internal Medicine Work Phone: Comment on above: PATIENT NOT FASTINGP ERFORMED BY: CB [facility] Ekemdq1931 [address] RoadDublin [place] [id number] AST [Catalytic activity/Vol] 110 U/L Abnormal 0-40 [facility]; [facility] Internal Medicine Work Phone: AST enzyme act/vol 110 [iU]/L Abnormal 0-40 [facility] Internal Medicine Work Phone: Comment on above: PATIENT NOT FASTINGP ERFORMED BY: CB [facility] Xineez7340 [address] RoadDublin [place] [id number] Bilirubin mass conc 0.6 mg/dL Normal 0.0-1.2 Compr ensive Internal Medicine Work Phone: Comment on above: PATIENT NOT FASTINGP ERFORMED BY: CB [facility] Tcoclu6565 [address] RoadDublin [place] [id number] Calcium mass conc 9.4 mg/dL Normal 8.7-10.2 Compreh ensive Internal Medicine Work Phone: Comment on above: PATIENT NOT FASTINGP ERFORMED BY: CB [facility] Rcbwkc6224 [address] RoadDublin [place] [id number] Chloride molar conc 98 mmol/L Normal 96-106 Compr ensive Internal Medicine Work Phone: Comment on above: PATIENT NOT FASTINGP ERFORMED BY: CB [facility] Zhgknn0437 [address] RoadDublin [place] [id number] CO2 molar conc 23 mmol/L Normal 20-29 Comprehens randal Internal Medicine Work Phone: Comment on above: Please note refere nce interval change PATIENT NOT FASTINGP ERFORMED BY: CB [facility] Nnwhqn1974 [address]Dublin [place] [id number] Creatinine mass conc 0.99 mg/dL Normal 0.76-1.27 Comp rehensive Internal Medicine Work Phone: Comment on above: PATIENT NOT FASTINGP ERFORMED BY: CB [facility] Odzzfp8783 Epralta RoadDublin [place] [id number] GFR/1.73 sq M predicted among blacks CKD-EPI vol rate/area (S/P/Bld) 97 mL/min/1.73 Normal Comprehensiv e Internal Medicine Work Phone: Comment on above: PATIENT NOT FASTINGP ERFORMED BY: CB [facility] Oxjmrv2790 [address] RoadDublin [place] [id number] GFR/1.73 sq M predicted among non-blacks CKD-EPI vol rate/area (S/P/Bld) 84 mL/min/1.73 Normal [facility] Work Phone: Comment on above: PATIENT NOT FASTINGP ERFORMED BY: CB [facility] Zrxosm0310 [address]Dublin [place] [id number] Globulin mass conc (S) 2.6 g/dL Normal 1.5-4.5 [facility] Work Phone: Comment on above: PATIENT NOT FASTINGP ERFORMED BY: CB [facility] Lznmkd1875 [address] RoadDublin [place] [id number] Glucose mass conc 123 mg/dL Abnormal 65-99 Compreh ensive Internal Medicine Work Phone: Comment on above: PATIENT NOT FASTINGP ERFORMED BY: CB [facility] Qcgimv5306 [address] RoadDublin [place] [id number] Potassium molar conc 4.4 mmol/L Normal 3.5-5.2 Comp rehensive Internal Medicine Work Phone: Comment on above: PATIENT NOT FASTINGP ERFORMED BY: CB [facility] Ahtqqv1032 [address] RoadDublin [place] [id number] Protein mass conc 6.9 g/dL Normal 6.0-8.5 Compreh ensive Internal Medicine Work Phone: Comment on above: PATIENT NOT FASTINGP ERFORMED BY: MIRIAM [facility] Vwcxdi8956 [facility] [id number] Sodium molar conc 137 mmol/L Normal 134-144 Compreh ensive Internal Medicine Work Phone: Comment on above: PATIENT NOT FASTINGP ERFORMED BY: MIRIAM [facility] Nzqxqa8937 [facility] [id number] Urea nitrogen mass conc 17 mg/dL Normal 6-24 [facility] Work Phone: Comment on above: PATIENT NOT FASTINGP ERFORMED BY: [facility] Wuasct9974 [facility] [id number] Urea nitrogen/Creatinine mass ratio 17 mg/mg Normal 9-20 [facility] Work Phone: Comment on above: PATIENT NOT FASTINGP ERFORMED BY: [facility] Dknsmv5597 [facility] [id number] CBC, Platelets & Auto Diff ( [id number])Ordered By: Car Repairer Helper on 09-01-2017 Basophils #/vol (Bld) 0.0 {x10E3/uL} Normal 0.0-0.2 [facility] Work Phone: Comment on above: PATIENT WAS FASTINGP ERFORMED BY: MIRIAM [facility]otteChristian [facility] Care CenterIecpha2809 [facility] [id number] Basophils (Bld) [#/Vol] 0.0 10*3/uL Normal 0.0-0.2 [facility]; [facility] Work Phone: Basophils/100 WBC (Bld) 0 % Normal [facility] Work Phone: Comment on above: PATIENT WAS FASTINGP ERFORMED BY: [facility] Iewpce2698 [facility] [id number] Eosinophils #/vol (Bld) 0.0 {x10E3/uL} Normal 0.0-0.4 [facility] Work Phone: Comment on above: PATIENT WAS FASTINGP ERFORMED BY: [facility] Vdpmqb9741 [facility] [id number] Eosinophils (Bld) [#/Vol] 0.0 10*3/uL Normal 0.0-0.4 [facility]; [facility] Work Phone: Eosinophils/100 WBC (Bld) 1 % Normal [facility] Work Phone: Comment on above: PATIENT WAS FASTINGP ERFORMED BY: MIRIAM [facility] Hyijpp8746 [facility] [id number] Erythrocyte distribution width Ratio (RBC) 13.8 % Normal 12.3-15.4 [facility] Work Phone: Comment on above: PATIENT WAS FASTINGP ERFORMED BY: MIRIAM [facility] Tqlwmb7006 [facility] [id number] Hematocrit Volume Fraction (Bld) 47.2 % Normal 37.5-51.0 [facility] Work Phone: Comment on above: PATIENT WAS FASTINGP ERFORMED BY: MIRIAM [facility] Lbtkhk1729 [facility] [id number] Hemoglobin mass conc (Bld) 15.9 g/dL Normal 13.0-17.7 [facility] Work Phone: Comment on above: PATIENT WAS FASTINGP ERFORMED BY: MIRIAM LabMargarita TreviñoDnmvdd1739 [facility] [id number] Immature granulocytes #/vol (Bld) 0.0 {x10E3/uL} Normal 0.0-0.1 [facility] Work Phone: Comment on above: PATIENT WAS FASTINGP ERFORMED BY: [facility] Sbfpzs7464 [facility] [id number] Immature granulocytes (Bld) [#/Vol] 0.0 10*3/uL Normal 0.0-0.1 [facility]; [facility] Work Phone: Immature granulocytes/100 WBC (Bld) 0 % Normal [facility] Work Phone: Comment on above: PATIENT WAS FASTINGP ERFORMED BY: MIRIAM [facility] Ksonsi7664 [facility] [id number] Lymphocytes #/vol (Bld) 1.9 {x10E3/uL} Normal 0.7-3.1 [facility] Work Phone: Comment on above: PATIENT WAS FASTINGP ERFORMED BY: MIRIAM [facility]6370 [facility] [id number] Lymphocytes (Bld) [#/Vol] 1.9 10*3/uL Normal 0.7-3.1 [facility]; [facility] Work Phone: Lymphocytes/100 WBC (Bld) 22 % Normal [facility] Work Phone: Comment on above: PATIENT WAS FASTINGP ERFORMED BY: MIRIAM [facility] Zhjogt5950 [facility] [id number] MCH Entitic mass (RBC) 31.9 pg Normal 26.6-33.0 [facility] Work Phone: Comment on above: PATIENT WAS FASTINGP ERFORMED BY: [facility] Ltoikh0848 [facility] [id number] MCHC mass conc (RBC) 33.7 g/dL Normal 31.5-35.7 [facility] Internal Medicine Work Phone: Comment on above: PATIENT WAS FASTINGP ERFORMED BY: [facility]Sche[facility]6370 [facility] [id number] MCV Entitic volume (RBC) 95 fL Normal 79-97 [facility] Work Phone: Comment on above: PATIENT WAS FASTINGP ERFORMED BY: MIRIAM [facility] Opzdws1381 [facility] [id number] Monocytes #/vol (Bld) 0.9 {x10E3/uL} Normal 0.1-0.9 [facility] Work Phone: Comment on above: PATIENT WAS FASTINGP ERFORMED BY: [facility]Sche[facility]6370 [facility] [id number] Monocytes (Bld) [#/Vol] 0.9 10*3/uL Normal 0.1-0.9 [facility]; [facility] Work Phone: Monocytes/100 WBC (Bld) 10 % Normal [facility] Work Phone: Comment on above: PATIENT WAS FASTINGP ERFORMED BY: MIRIAM Man Klein6370 [facility] [id number] Neutrophils #/vol (Bld) 5.9 {x10E3/uL} Normal 1.4-7.0 [facility] Work Phone: Comment on above: PATIENT WAS FASTINGP ERFORMED BY: MIRIAM LabCopetr KleinRstpad4884 [facility] [id number] Neutrophils (Bld) [#/Vol] 5.9 10*3/uL Normal 1.4-7.0 [facility]; [facility] Work Phone: Neutrophils/100 WBC (Bld) 67 % Normal [facility] Work Phone: Comment on above: PATIENT WAS FASTINGP ERFORMED BY: MIRIAM Treviñolin6370 [facility] [id number] Platelets #/vol (Bld) 232 {x10E3/uL} Normal 150-379 [facility] Work Phone: Comment on above: PATIENT WAS FASTINGP ERFORMED BY: MIRIAM Silpetr Nmkgcl4627 [facility] [id number] Platelets (Bld) [#/Vol] 232 10*3/uL Normal 150-379 [facility]; [facility] Work Phone: RBC #/vol (Bld) 4.98 {x10E6/uL} Normal 4.14-5.[address] [facility] Work Phone: Comment on above: PATIENT WAS FASTINGP ERFORMED BY: MIRIAM LabCo Aokhpy9234 [facility] [id number] RBC (Bld) [#/Vol] 4.98 10*6/uL Normal 4.14-5.80 Compr ensive Internal Medicine; [facility] Work Phone: WBC #/vol (Bld) 8.9 {x10E3/uL} Normal 3.4-10.8 Compr ensive [facility] Medicine Work Phone: Comment on above: PATIENT WAS FASTINGP ERFORMED BY: MIRIAM [facility] Zsmrnk2271 [address] RoadDublin [place] [id number] WBC (Bld) [#/Vol] 8.9 10*3/uL Normal 3.4-10.8 Compre [facility] Internal Medicine; [facility] Work Phone: LIPID PANEL ([phone])Ordered B y: Car Repairer Helper on 09-01-2017 Cholesterol in HDL mass conc 32 mg/dL Abnormal [facility] Work Phone: Comment on above: PATIENT WAS FASTINGP ERFORMED BY: MIRIAM LabCopetr Niiytc5608 [address]in [place] [id number] Cholesterol in LDL mass conc 207 mg/dL Abnormal 0-99 [facility] Work Phone: Comment on above: PATIENT WAS FASTINGP ERFORMED BY: MIRIAM LabMargarita Uhppua6496 [address] [place] MetricsCorp[place] [id number] Cholesterol in LDL/Cholesterol in HDL mass ratio 6.5 {ratio_units} Abnormal 0.0-3.6 [facility] Work Phone: Comment on above: LDL/HDL Ratio Men Wo men 1/2 Avg.Risk 1.0 1.5 Avg.Risk 3.6 3.2 2X Avg.Risk 6.2 5.0 3X Avg.Risk 8.0 6.1 PATIENT WAS FASTINGP ERFORMED BY: MIRIAM LabMargarita Wiupju0492 [address] [facility] [id number] Cholesterol in VLDL mass conc 42 mg/dL Abnormal 5-40 [facility] Work Phone: Comment on above: PATIENT WAS FASTINGP ERFORMED BY: MIRIAM [facility] Sfiinc7857 [address] RoadDublin [place] [id number] Cholesterol mass conc 281 mg/dL Abnormal 100-199 Com prehensive Internal Medicine Work Phone: Comment on above: PATIENT WAS FASTINGP ERFORMED BY: MIRIAM LabCharlotterp Ykkxss9404 [address] [facility] GladwinDublin [place] [id number] Laboratory comment Narinder (Report) LDLCOM Normal [facility] Work Phone: Comment on above: Possible Familial Hy percholesterolemia. FH should be suspected whenfasting LDL cholesterol is above 189 mg/dL or non-HDL cholesterolis above 219 mg/dL. A family history of high cholesterol and heartdisease in 1st degree relatives should be collected. J Clin Ymczhyw0805;5:133-140 PATIENT WAS FASTINGP ERFORMED BY: LabCo Wnsecj9101 [facility] [id number] Triglyceride mass conc 212 mg/dL Abnormal 0-149 [facility] Work Phone: Comment on above: PATIENT WAS FASTINGP ERFORMED BY: LabCoChristian Health Care CenterGrwafp1604 [facility] [id number] Metabolic Panel, Comprehensi ve ([id number])Ordered By: Car Repairer Helper on 09-01-2017 Albumin mass conc 4.4 g/dL Normal 3.5-5.5 Compreh ensive Internal Medicine Work Phone: Comment on above: PATIENT WAS FASTINGP ERFORMED BY: LabUlule Fypfuk6501 [facility] [id number] Albumin/Globulin mass ratio 1.8 {ratio} Normal 1.2-2.2 [facility] Work Phone: Comment on above: PATIENT WAS FASTINGP ERFORMED BY: LabUlule Vbugyv8095 [facility] [id number] ALP [Catalytic activity/Vol] 128 U/L Abnormal 39-117 [facility]; [facility] Work Phone: ALP enzyme act/vol 128 [iU]/L Abnormal 39-117 [facility] Internal Medicine Work Phone: Comment on above: PATIENT WAS FASTINGP ERFORMED BY: LabUlule Chpbtf6790 [facility] [id number] ALT [Catalytic activity/Vol] 120 U/L Abnormal 0-44 [facility]; [facility] Work Phone: ALT enzyme act/vol 120 [iU]/L Abnormal 0-44 [facility] Internal Medicine Work Phone: Comment on above: PATIENT WAS FASTINGP ERFORMED BY: MIRIAM FieldsMer[facility] Srazvr0441 [facility] [id number] AST [Catalytic activity/Vol] 156 U/L Abnormal 0-40 [facility]; [facility] Work Phone: AST enzyme act/vol 156 [iU]/L Abnormal 0-40 Compre [facility] Work Phone: Comment on above: PATIENT WAS FASTINGP ERFORMED BY: DiamondMer[facility] St[facility] Sknqmq8712 [facility] [id number] Bilirubin mass conc 0.4 mg/dL Normal 0.0-1.2 Compr ehensive Internal Medicine Work Phone: Comment on above: PATIENT WAS FASTINGP ERFORMED BY: Sil Mkqlkq9604 [facility] [id number] Calcium mass conc 9.6 mg/dL Normal 8.7-10.2 Compreh ensive Internal Medicine Work Phone: Comment on above: PATIENT WAS FASTINGP ERFORMED BY: [facility]Mer[facility] St[facility] Dtnyrf2548 [facility] [id number] Chloride molar conc 97 mmol/L Normal 96-106 Compr ensive Internal Medicine Work Phone: Comment on above: PATIENT WAS FASTINGP ERFORMED BY: Sil Ibsxne1596 [facility] [id number] CO2 molar conc 23 mmol/L Normal 18-29 Comprehens randal Internal Medicine Work Phone: Comment on above: PATIENT WAS FASTINGP ERFORMED BY: [facility]6370 [facility] [id number] Creatinine mass conc 0.92 mg/dL Normal 0.76-1.[address] [facility] Work Phone: Comment on above: PATIENT WAS FASTINGP ERFORMED BY: [facility] Bxzmez8111 [facility] [id number] GFR/1.73 sq M predicted among blacks CKD-EPI vol rate/area (S/P/Bld) 106 mL/min/1.73 Normal Comprehensiv e Internal Medicine Work Phone: Comment on above: PATIENT WAS FASTINGP ERFORMED BY: MIRIAM LabMer[facility] Xmrsda7106 [facility] [id number] GFR/1.73 sq M predicted among non-blacks CKD-EPI vol rate/area (S/P/Bld) 91 mL/min/1.73 Normal [facility] Work Phone: Comment on above: PATIENT WAS FASTINGP ERFORMED BY: MIRIAM LabCharlotte Htlymv8464 [facility] [id number] Globulin mass conc (S) 2.4 g/dL Normal 1.5-4.5 [facility] Work Phone: Comment on above: PATIENT WAS FASTINGP ERFORMED BY: MIRIAM Sil Woyhwx0842 [facility] [id number] Glucose mass conc 162 mg/dL Abnormal 65-99 Compreh ensive Internal Medicine Work Phone: Comment on above: PATIENT WAS FASTINGP ERFORMED BY: MIRIAM Sil Gfngjf7105 [facility] [id number] Potassium molar conc 4.4 mmol/L Normal 3.5-5.2 Comp rehensive Internal Medicine Work Phone: Comment on above: PATIENT WAS FASTINGP ERFORMED BY: MIRIAM Sil Mbjsjr5860 [facility] [id number] Protein mass conc 6.8 g/dL Normal 6.0-8.5 Compreh ensive Internal Medicine Work Phone: Comment on above: PATIENT WAS FASTINGP ERFORMED BY: MIRIAM LabMatthew Ville [id number] [facility] [id number] Sodium molar conc 139 mmol/L Normal 134-144 Compreh ensive Internal Medicine Work Phone: Comment on above: PATIENT WAS FASTINGP ERFORMED BY: MIRIAM LabCo Zludxp3121 [facility] [id number] Urea nitrogen mass conc 14 mg/dL Normal 6-24 [facility] Work Phone: Comment on above: PATIENT WAS FASTINGP ERFORMED BY: MIRIAM LabMatthew Ville [id number] [facility] [id number] Urea nitrogen/Creatinine mass ratio 15 mg/mg Normal 9-20 [facility] Work Phone: Comment on above: PATIENT WAS FASTINGP ERFORMED BY: MIRIAM [facility] Ppcbng[address] Ingressosbl[place] [id number] VITAMIN B12 AND FOLATES (826 07)Ordered By: Car Repairer Helper on 09-01-2017 Cobalamin (Vitamin B12) mass conc 726 pg/mL Normal 232-1245 [facility] Work Phone: Comment on above: PATIENT WAS FASTINGP ERFORMED BY: MIRIAM [facility] Kriwel[address] Ingressosin [place] [id number] Folate mass conc 12.0 ng/mL Normal Comprehe nsive Internal Medicine Work Phone: Comment on above: A serum folate angie ntration of less than 3.1 ng/mL isconsidered to represent clinical deficiency. PATIENT WAS FASTINGP ERFORMED BY: MIRIAM LabLife360 Mvcixw3381 [address] IngressosOur [facility] Hospital [id number] Blood Glucose , Office ([phone])Ordered By: Hayden Galicia on 08-11-2017 Glucose Glucometer molar conc (BldC) 233 1 Normal [facility] Work Phone: HgA1C , Office ([phone])Ordere d By: Cyn Springer on 08-11-2017 Hemoglobin A1c/Hemoglobin.total mass fraction (Bld) 8.6 % Abnormal 4.6 - 7.1 Comprehensiv e Internal Medicine Work Phone: MICROALBUMINOrdered By: Syst em Gospel Worker on 08-11-2017 Albumin DL <= 20 mg/L (U) [Mass/Vol] mg/dL Normal [facility]; [facility] Work Phone: Albumin DL <= 20 mg/L mass conc (U) mg/dL Normal [facility] Work Phone: Comment on above: PATIENT NOT FASTINGP ERFORMED BY: USEUM LabLife360 Itybrh7563 [address] Ninja MetricsUnc Health Blue Ridge - [place]in [place] [id number] Albumin/Creatinine mass ratio (U) <4.5 Normal 0.0-30.0 [facility] Work Phone: Comment on above: PATIENT NOT FASTINGP ERFORMED BY: CB [facility] Zrushm7629 [facility] [id number] Creatinine mass conc (U) 66.7 mg/dL Normal [facility] Work Phone: Comment on above: PATIENT NOT FASTINGP ERFORMED BY: [facility] Bzyjdg7809 [facility] [id number] Urinalysis, Office ([phone])Or dered By: Cyn Springer on 08-11-2017 Bilirubin [...] Microbiology: Culture, Wound on 12-31-2016 CUW . [facility] Work Phone: Microbiology: (P) Culture, W oundon 12-30-2016 CUW . [facility] Work Phone: Microbiology: (P) Culture, W oundon 12-29-2016 CUW . [facility] Work Phone: wound culture . Invalid Interpretation Code [facility] Work Phone: Microbiology: (P) Culture, W oundon 12-28-2016 CUW Wound CultureNo grow th aerobically. [facility] Work Phone: Culture, WoundOrdered By: Ad stem Gospel Worker on 12-26-2016 Bacteria identified Cx Nom (Wound) See Note Normal [facility] Work Phone: Comment on above: Comments: LEFT SIDE/ MID BACK CYSTGram StainGram Stain 2+ Gram positive cocci No White Blood Cells Wound CultureThere are no CLSI standards for interpretation of this Drug/Organism combination. ORGANISM 1: Actinomyces neuiiAmount Growth 2+ [facility] [address]bslijtf[address] [place], [address] Office Visit: UC: Sebacceous Cyston 12-26-2016 Dietary management education, guidance, and counseling (procedure) yes Invalid Interpretation Code [facility] Work Phone: Documentation of current medications (procedure) Done Invalid Interpretation Code [facility] Work Phone: Protein mass conc yes [facility] Work Phone: Protein mass conc Done [facility] Work Phone: Smoking cessation education (procedure) yes Invalid Interpretation Code [facility] Work Phone: Tobacco smoking status NHIS Current every day smoker [facility] Work Phone: Tobacco use [facility] Current every day smoker Invali d Interpretation Code [facility] Work Phone: Blood Glucose , Office ([phone])Ordered By: Cyn Springer on 05-14-2016 Glucose Glucometer molar conc (BldC) 96 1 Normal [facility] Work Phone: HgA1C , Office ([phone])Ordere d By: Cyn Springer on 05-14-2016 Hemoglobin A1c/Hemoglobin.total mass fraction (Bld) 6.8 % Normal 4.6 - 7.1 Comprehensiv e Internal Medicine Work Phone: Blood Glucose , Office ([phone])Ordered By: Cyn Springer on 01-15-2016 Glucose Glucometer molar conc (BldC) 110 1 Normal [facility] Work Phone: HgA1C , Office ([phone])Ordere d By: Cyn Springer on 01-15-2016 Hemoglobin A1c/Hemoglobin.total mass fraction (Bld) 6.3 % Normal 4.6 - 7.1 Comprehensiv e Internal Medicine Work Phone: Bedside GlucoseOrdered By: Dereck ystem Gospel Worker on 11-14-2015 Bedside Glucose 151 mg/dL Abnormal 70-110 [facility] Internal Medicine Work Phone: Comment on above: No Action RequiredMA NAGEMENT OF PATIENT CARE PER NURSING PROTOCOL [facility] LaboratoryPoint of [address]ua[address] [place] [address] Bedside Glucose 110 mg/dL Normal 70-110 [facility] Internal [facility] Work Phone: Comment on above: MANAGEMENT OF PATIEN T CARE PER NURSING PROTOCOL [facility] LaboratoryPoint of Hxzz[address] [place] [address] Clinical Lists Updateon 10-07 Left ventricular Ejection fraction 60 % [facility] Work Phone: Clinical Lists Updateon 10-06 Chloride 109 mmol/L [facility] Work Phone: CO2 27.0 mmol/L Invalid Interpretation Code [facility] Work Phone: CO2 ppres (BldV) 27.0 mmol/L [facility] Work Phone: Creatinine 1.07 mg/dL [facility] Work Phone: Hematocrit (HCT) 42.5 % Invalid Interpretation Code [facility] Work Phone: Hematocrit Volume Fraction (Bld) 42.5 % [facility] Work Phone: Hemoglobin (HGB) 14.0 g/dL [facility] Work Phone: Platelets 166 10*3/mm3 Invalid Interpretation Code [facility] Work Phone: Platelets #/vol (Bld) 166 10*3/mm3 W [facility] Work Phone: Potassium 4.4 mmol/L [facility] Work Phone: Sodium 144 mmol/L [facility] Work Phone: Urea nitrogen 13 mg/dL [facility] Now Cli john Work Phone: WBC #/vol (Bld) 7.3 10*3/uL [facility] Work Phone: WBC (Leukocytes) 7.3 10*3/uL Invalid Interpretation Code [facility] Work Phone: Basic Metabolic Profile (BMP )Ordered By: Car Repairer Helper on 10-21-2015 Basic metabolic 2000 panel 22 mg/dL Abnormal 7-18 [facility] Work Phone: Comment on above: [facility] [address] [place], [place], [phone] Basic metabolic 2000 panel 56 mL/min Abnormal [facility] Work Phone: Comment on above: Non- GFR Calc [facility] [address] [place], [place], [phone] Basic metabolic 2000 panel 15.7 {RATIO} Normal 10-20 [facility] Work Phone: Comment on above: [facility] [address] [place], [address] Basic metabolic 2000 panel 57.00 ml/min Normal [facility] Work Phone: Comment on above: [facility] Rxsp[address]wuem[address] [place], [address] Basic metabolic 2000 panel 141 mmol/L Normal 136-145 [facility] Work Phone: Comment on above: [facility] [address] [place], [place], [address]228[address] Basic metabolic 2000 panel 8 1 Normal 5-15 [facility] Work Phone: Comment on above: [facility] [address] [place], [place], [address]8561 Basic metabolic 2000 panel 8.8 mg/dL Normal 8.5-10.1 [facility] Work Phone: Comment on above: [facility] [address] [place], [place], [address]389[address] Basic metabolic 2000 panel 25.0 mmol/L Normal 21.0-32.0 [facility] Work Phone: Comment on above: [facility] [address] [place], [address] Basic metabolic 2000 panel 67 mL/min Normal [facility] Work Phone: Comment on above: GFR Calc [facility] [address] [place], [address] Basic metabolic 2000 panel 151 mg/dL Abnormal 70-110 [facility] Work Phone: Comment on above: Fasting Glucose resu lt greater than or equal to 126 mg/dLsuggests DIABETES MELLITUS per A.D.A. criteria. [facility] [address] [place], [place], [phone] Basic metabolic 2000 panel 4.2 mmol/L Normal 3.5-5.1 [facility] Work Phone: Comment on above: [facility] [address] [place], [place], [phone] Basic metabolic 2000 panel 108 mmol/L Abnormal 98-107 [facility] Work Phone: Comment on above: [facility] [address] [place], [place], [phone] Basic metabolic 2000 panel 1.40 mg/dL Abnormal 0.70-1.30 [facility] Work Phone: Comment on above: The validity of the calculated GFR AND GFRAA in patients over70 years has not been determined. Clinical correlation isessential. [facility] [address] [place], [place], [phone] CBC W/Diff, AutomatedOrdered By: Car Repairer Helper on 10-21-2015 Absolute Neut 12.7 {X10_3/uL} Abnormal 2.0-7.7 [facility] Internal Medicine Work Phone: Comment on above: [facility] [address] [place], [place], [phone] Basophils/100 WBC (Bld) 0.3 % Normal 0-1 [facility] Work Phone: Comment on above: [facility] [address] [place], [place], [phone] Eosinophils/100 WBC (Bld) 0.3 % Normal 0-5 [facility] Work Phone: Comment on above: [facility] [address] [place], [place], [phone] Erythrocyte distribution width Ratio (RBC) 12.7 % Normal 11.6-14.6 [facility] Work Phone: Comment on above: [facility] [address] [place], [place], [phone] Hematocrit Volume Fraction (Bld) 46.2 % Normal 40-54 [facility] Work Phone: Comment on above: [facility] [address] [place], [address] Hemoglobin mass conc (Bld) 16.2 g/dL Normal 13.0-16.5 [facility] Work Phone: Comment on above: [facility] [address] [place], [address] IM GRAN % 0.300 % Normal 0.0-0.9 [facility] Work Phone: Comment on above: IG% - Immature Granu locytes (promyelocytes, myelocytes andmetamyelocytes) > 1% indicates that a LEFT SHIFT is Present. [facility] [address] [place], [place], [phone] Lymphocytes #/vol (Bld) 1.30 {X10_3/ul} Normal 0.83-4.51 [facility] Work Phone: Comment on above: [facility] [address] [place], [address] Lymphocytes/100 WBC (Bld) 8.5 % Abnormal 19-41 [facility] Work Phone: Comment on above: [facility] [address] [place], [address] MCH Entitic mass (RBC) 33.0 pg Abnormal 27.0-32.0 [facility] Work Phone: Comment on above: [facility] [address] [place], [address] MCHC mass conc (RBC) 35.1 {g/gl} Normal 32-36 [facility] prehensive Internal Medicine Work Phone: Comment on above: [facility] [address] [place], [address] MCV Entitic volume (RBC) 94.1 fL Abnormal 80-94 [facility] Work Phone: Comment on above: [facility] [address] [place], [address] Monocytes/100 WBC (Bld) 6.9 % Normal 0-10 [facility] Work Phone: Comment on above: [facility] [address] [place], [address] Neutrophils/100 WBC (Bld) 83.7 % Abnormal 47-70 [facility] Work Phone: Comment on above: [facility] [address] [place], [address] Platelet mean volume Entitic volume (Bld) 10.6 fL Normal 6.2-12.0 Comprehensi ve Internal Medicine Work Phone: Comment on above: [facility] [address] [place], [address] Platelets #/vol (Bld) 206 10*3/uL Normal 150-450 [facility] Internal Medicine Work Phone: Comment on above: [facility] [address] [place], [address] RBC #/vol (Bld) 4.91 {M/mm3} Normal 4.6-6.2 Compreh ensive Internal Medicine Work Phone: Comment on above: [facility] [address] [place], [address] RDW SD 42.9 fL Normal 35.1-43.9 [facility] Work Phone: Comment on above: [facility] [address] [place], [address] WBC #/vol (Bld) 15.2 10*3/uL Abnormal 4.4-11.0 Compreh ensive Internal Medicine Work Phone: Comment on above: [facility] [address] [place], [place], [address] Lactic AcidOrdered By: Syste m Gospel Worker on 10-21-2015 Lactate molar conc 1.7 mmol/L Normal 0.4-2.0 Compre hensive Internal Medicine Work Phone: Comment on above: [facility] spital [address] [place], [phone] Urinalysis, CompleteOrdered By: Car Repairer Helper on 10-21-2015 Protein mass conc (U) 15 mg/dL Abnormal Com prehensive Internal Medicine Work Phone: Comment on above: Order Date: 10/21/15 Has pt arrived? YHow was Urine Obtained? APPARATUS OPERATOR TO SPECIFYAv[facility] [address] [place], [phone] RBC #/vol (U) 10-25 SEEN Normal 0-5 Comprehensi ve Internal Medicine Work Phone: Comment on above: Order Date: 10/21/15 Has pt arrived? YHow was Urine Obtained? APPARATUS OPERATOR TO SPECIFYAv[facility] [address]cre[address] [place], [phone] Urinalysis complete panel - Urine Negative Normal [facility] Work Phone: Comment on above: Order Date: 10/21/15 Has pt arrived? YHow was Urine Obtained? APPARATUS OPERATOR TO SPECIFYAv[facility] [address] [place], [phone] Urinalysis complete panel - Urine Yellow Normal [facility] Work Phone: Comment on above: Order Date: 10/21/15 Has pt arrived? YHow was Urine Obtained? APPARATUS OPERATOR TO SPECIFYAv[facility] [address]jw[address] [place], [phone] Urinalysis complete panel - Urine Sl. Cloudy Normal [facility] Work Phone: Comment on above: Order Date: 10/21/15 Has pt arrived? YHow was Urine Obtained? APPARATUS OPERATOR TO [facility]IFY[facility] [address] [place], [id number] Urinalysis complete panel - Urine Normal Normal [facility] Work Phone: Comment on above: Order Date: 10/21/15 Has pt arrived? YHow was Urine Obtained? APPARATUS OPERATOR TO SPECIFYAv[facility] [address] [place], [address] Urinalysis complete panel - Urine 1.010 1 Normal 1.002-1.03 0 [facility] Work Phone: Comment on above: Order Date: 10/21/15 Has pt arrived? YHow was Urine Obtained? APPARATUS OPERATOR TO SPECIFYAv[facility] [address] [place], [address] Urinalysis complete panel - Urine 6.0 1 Normal 5.0 - 8.0 [facility] Work Phone: Comment on above: Order Date: 10/21/15 Has pt arrived? YHow was Urine Obtained? APPARATUS OPERATOR TO SPECIFYAv[facility] [address] [place], [id number] Urinalysis complete panel - Urine 1+ URATE Normal [facility] Work Phone: Comment on above: Order Date: 10/21/15 Has pt arrived? YHow was Urine Obtained? APPARATUS OPERATOR TO SPECIFYAv[facility] [address] [place], [address] Urinalysis complete panel - Urine 250 /ul Abnormal [facility] Work Phone: Comment on above: Order Date: 10/21/15 Has pt arrived? YHow was Urine Obtained? APPARATUS OPERATOR TO SPECIFYAv[facility] [address] [place], [address] Urinalysis complete panel - Urine 0 SEEN Normal [facility] Work Phone: Comment on above: Order Date: 10/21/15 Has pt arrived? YHow was Urine Obtained? APPARATUS OPERATOR TO SPECIFYAv[facility] [address] [place], [id number] Urinalysis complete panel - Urine 0-5 SEEN Normal 0-5 [facility] Work Phone: Comment on above: Order Date: 10/21/15 Has pt arrived? YHow was Urine Obtained? APPARATUS OPERATOR TO [facility] [address] 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 PATIENT WAS FASTINGP ERFORMED BY: CB [facility] Distkm0393 [employer] [place] [id number] LDL Cholesterol 136 mg/dL Abnormal 0-99 [facility] Work Phone: Comment on above: PATIENT WAS FASTINGP ERFORMED BY: CB [facility] Hiovfm[address] [place] [place] [id number] Triglyceride 155 mg/dL Abnormal 0-149 [facility] Work Phone: Comment on above: PATIENT WAS FASTINGP ERFORMED BY: CB [facility] Chdazt9311 [facility] [id number] LDL/HDL ratio, serum 4.4 High [facility] Work Phone: very low density lipoproteins 31 mg/dL [facility] Work Phone: LIPID PANEL ([id number])Ordered B y: Car Repairer Helper on 07-16-2015 Cholesterol in LDL/Cholesterol in HDL mass ratio 4.4 {ratio_units} Abnormal 0.0-3.6 [facility] Work Phone: Comment on above: LDL/HDL Ratio Men Wo men 1/2 Avg.Risk 1.0 1.5 Avg.Risk 3.6 3.2 2X Avg.Risk 6.2 5.0 3X Avg.Risk 8.0 6.1 PATIENT WAS FASTINGP ERFORMED BY: MIRIAM LabCopetr TreviñoVjabjq9327 [place] [facility] [id number] Cholesterol in VLDL mass conc 31 mg/dL Normal 5-40 [facility] Work Phone: Comment on above: PATIENT WAS FASTINGP ERFORMED BY: MIRIAM LabCopetr TreviñoBjpxae2381 [facility] [id number] METABOLIC PANEL, COMPREHENSI VE ([id number])Ordered By: Car Repairer Helper on 07-16-2015 Albumin mass conc 4.5 g/dL Normal 3.5-5.5 Compreh ensive Internal Medicine Work Phone: Comment on above: PATIENT WAS FASTINGP ERFORMED BY: MIRIAM Treviñolin6370 [facility] [id number] Information: [id number] Albumin/Globulin mass ratio 2.3 {ratio} Normal 1.1-2.5 [facility] Work Phone: Comment on above: PATIENT WAS FASTINGP ERFORMED BY: MIRIAM LabCopetr TreviñoVzzsla9109 [facility] [id number] Information: [id number] ALP [Catalytic activity/Vol] 81 U/L Normal 39-117 [facility]; [facility] Work Phone: ALP enzyme act/vol 81 [iU]/L Normal 39-117 Compre hensive Internal Medicine Work Phone: Comment on above: PATIENT WAS FASTINGP ERFORMED BY: MIRIAM [facility] Xldqnd7049 [facility] [id number] Information: [id number] ALT [Catalytic activity/Vol] 21 U/L Normal 0-44 [facility]; [facility] Internal Medicine Work Phone: ALT enzyme act/vol 21 [iU]/L Normal 0-44 [facility] Internal Medicine Work Phone: Comment on above: PATIENT WAS FASTINGP ERFORMED BY: [facility] Lcvxvs6844 [facility] [id number] Information: [id number] AST [Catalytic activity/Vol] 21 U/L Normal 0-40 [facility]; [facility] Internal Medicine Work Phone: AST enzyme act/vol 21 [iU]/L Normal 0-40 [facility] Internal Medicine Work Phone: Comment on above: PATIENT WAS FASTINGP ERFORMED BY: MIRIAM [place] [id number] [facility] [id number] Information: [id number] Bilirubin [Mass/Vol] mg/dL Normal 0.0-1.[address] [facility]; [facility] Internal Medicine Work Phone: Bilirubin mass conc mg/dL Normal 0.0-1.2 [facility] Internal Medicine Work Phone: Comment on above: PATIENT WAS FASTINGP ERFORMED BY: [place] [id number] [facility] [id number] Information: [id number] Calcium mass conc 9.3 mg/dL Normal 8.7-10.2 Compreh [facility] Work Phone: Comment on above: PATIENT WAS FASTINGP ERFORMED BY: [place] [id number] [facility] [id number] Information: [id number] Chloride molar conc 103 mmol/L Normal 97-108 Compr [facility] Internal Medicine Work Phone: Comment on above: PATIENT WAS FASTINGP ERFORMED BY: [facility]6370 [facility] [id number] Information: [id number] CO2 molar conc 24 mmol/L Normal 18-29 Comprehens randal Internal Medicine Work Phone: Comment on above: PATIENT WAS FASTINGP ERFORMED BY: Lab[facility] Bynqnv1079 [place] [facility] [id number] Information: [id number] Creatinine mass conc 0.81 mg/dL Normal 0.76-1.27 Comp rehensive Internal Medicine Work Phone: Comment on above: PATIENT WAS FASTINGP ERFORMED BY: [facility] Tuwwsp3452 [place] [facility] [id number] Information: [id number] GFR/1.73 sq M predicted among blacks CKD-EPI vol rate/area (S/P/Bld) 115 mL/min/1.73 Normal Comprehensiv e Internal Medicine Work Phone: Comment on above: PATIENT WAS FASTINGP ERFORMED BY: [facility] Rpxydx4409 [facility] [id number] Information: [id number] GFR/1.73 sq M predicted among non-blacks CKD-EPI vol rate/area (S/P/Bld) 99 mL/min/1.73 Normal [facility] Work Phone: Comment on above: PATIENT WAS FASTINGP ERFORMED BY: [facility] Mvowei8007 [facility] [id number] Information: [id number] Globulin mass conc (S) 2.0 g/dL Normal 1.5-4.5 [facility] Work Phone: Comment on above: PATIENT WAS FASTINGP ERFORMED BY: [facility] Rpsvsf2641 [facility] [id number] Information: [id number] Glucose mass conc 112 mg/dL Abnormal 65-99 Compreh ensive Internal Medicine Work Phone: Comment on above: PATIENT WAS FASTINGP ERFORMED BY: [facility] Fmyxkg8276 [facility] [id number] Information: [id number] Potassium molar conc 4.6 mmol/L Normal 3.5-5.2 Comp rehensive Internal Medicine Work Phone: Comment on above: PATIENT WAS FASTINGP ERFORMED BY: MIRIAM Lab[facility] Avigav5312 [facility] [id number] Information: [id number] Protein mass conc 6.5 g/dL Normal 6.0-8.5 Compreh ensive Internal Medicine Work Phone: Comment on above: PATIENT WAS FASTINGP ERFORMED BY: [facility] Sedgqj3269 [place] [facility] [id number] Information: [id number] Sodium molar conc 140 mmol/L Normal 134-144 Compreh ensive Internal Medicine Work Phone: Comment on above: PATIENT WAS FASTINGP ERFORMED BY: MIRIAM [facility] Bjvqpq4371 [facility] [id number] Information: [id number] Urea nitrogen mass conc 14 mg/dL Normal 6-24 [facility] Work Phone: Comment on above: PATIENT WAS FASTINGP ERFORMED BY: [facility] Ubomra3457 [facility] [id number] Information: [id number] Urea nitrogen/Creatinine mass ratio 17 mg/mg Normal 9-20 [facility] Work Phone: Comment on above: PATIENT WAS FASTINGP ERFORMED BY: [facility] Azukhm8634 [facility] [id number] Information: [id number] PSA (PROSTATE SPECIFIC ANTIG EN) (V76.44)Ordered By: Car Repairer Helper on 07-16-2015 Prostate specific Ag mass conc 0.2 ng/mL Normal 0.0-4.0 [facility] Work Phone: Comment on above: Kenna ECLIA methodol ogy. .According to the [place] [employer], Serum PSA shoulddecrease and remain [...] malignant disease. PATIENT WAS FASTINGP ERFORMED BY: [facility]6370 [facility] [id number] Basic Metabolic Profile (BMP )Ordered By: Car Repairer Helper on 05-06-2015 Basic metabolic 2000 panel 67 mL/min Normal [facility] Work Phone: Comment on above: Non- GFR Calc 'TROP' Serial specim en #1, #2, #3, or #4: [address] [place] [address] [place], [place], [phone] Basic metabolic 2000 panel 11.7 {RATIO} Normal 10-20 [facility] Work Phone: Comment on above: 'TROP' Serial specim en #1, #2, #3, or #4: [address] [place] [address] [place], [place], [phone] Basic metabolic 2000 panel 9.0 mg/dL Normal 8.5-10.1 [facility] Work Phone: Comment on above: 'TROP' Serial specim en #1, #2, #3, or #4: [address] [place] [address] [place], [address] Basic metabolic 2000 panel 155 mg/dL Abnormal 70-110 [facility] Work Phone: Comment on above: Fasting Glucose resu lt greater than or equal to 126 mg/dLsuggests DIABETES MELLITUS per A.D.A. criteria. 'TROP' Serial specim en #1, #2, #3, or #4: [address] [place] [address] [place], [place], [phone] Basic metabolic 2000 panel 64.26 ml/min Normal [facility] Work Phone: Comment on above: 'TROP' Serial specim en #1, #2, #3, or #4: [address] [place] [address] [place], [place], [phone] Basic metabolic 2000 panel 1.20 mg/dL Normal 0.70-1.30 [facility] Work Phone: Comment on above: The validity of the calculated GFR AND GFRAA in patients over70 years has not been determined. Clinical correlation isessential. 'TROP' Serial specim en #1, #2, #3, or #4: [address] [place] [address] [place], [place], [phone] Basic metabolic 2000 panel 140 mmol/L Normal 136-145 [facility] Work Phone: Comment on above: 'TROP' Serial specim en #1, #2, #3, or #4: [address] [place] [address] [place], [place], [address] Basic metabolic 2000 panel 3.9 mmol/L Normal 3.5-5.1 [facility] Work Phone: Comment on above: 'TROP' Serial specim en #1, #2, #3, or #4: [address] [place] [address] [place], [place], [phone] Basic metabolic 2000 panel 6 1 Normal 5-15 [facility] Work Phone: Comment on above: 'TROP' Serial specim en #1, #2, #3, or #4: [address] [place] [address] [place], [place], [address] Basic metabolic 2000 panel 80 mL/min Normal [facility] Work Phone: Comment on above: GFR Calc 'TROP' Serial specim en #1, #2, #3, or #4: [address] [place] [address] [place], [place], [phone] Basic metabolic 2000 panel 104 mmol/L Normal 98-107 [facility] Work Phone: Comment on above: 'TROP' Serial specim en #1, #2, #3, or #4: [address] [place] [address] [place], [place], [address] Basic metabolic 2000 panel 30.0 mmol/L Normal 21.0-32.0 [facility] Work Phone: Comment on above: 'TROP' Serial specim en #1, #2, #3, or #4: [address] [place] [address] [place], [place], [address] Basic metabolic 2000 panel 14 mg/dL Normal 7-18 [facility] Work Phone: Comment on above: 'TROP' Serial specim en #1, #2, #3, or #4: [address] [place] [address] [place], [place], [phone] CBC W/Diff, AutomatedOrdered By: Car Repairer Helper on 05-06-2015 Absolute Neut 4.5 {X10_3/uL} Normal 2.0-7.7 Compreh ensive Internal Medicine Work Phone: Comment on above: [facility] [address] [place], [place], [phone] Basophils/100 WBC (Bld) 0.5 % Normal 0-1 [facility] Work Phone: Comment on above: [facility] [address] [place], [address] Eosinophils/100 WBC (Bld) 0.9 % Normal 0-5 [facility] Work Phone: Comment on above: [facility] [address] [place], [place], [phone] Erythrocyte distribution width Ratio (RBC) 13.0 % Normal 11.6-14.6 [facility] Work Phone: Comment on above: [facility] [address] [place], [place], [phone] Hematocrit Volume Fraction (Bld) 47.3 % Normal 40-54 [facility] Work Phone: Comment on above: [facility] [address] [place], [place], [address] Hemoglobin mass conc (Bld) 16.0 g/dL Normal 13.0-16.5 [facility] Work Phone: Comment on above: [facility] [address] [place], [address] IM GRAN % 0.200 % Normal 0.0-0.9 [facility] Work Phone: Comment on above: IG% - Immature Granu locytes (promyelocytes, myelocytes andmetamyelocytes) > 1% indicates that a LEFT SHIFT is Present. [facility] [address] [place], [place], [address] Lymphocytes #/vol (Bld) 3.09 {X10_3/ul} Normal 0.83-4.51 [facility] Work Phone: Comment on above: [facility] [address] [place], [address] Lymphocytes/100 WBC (Bld) 36.0 % Normal 19-41 [facility] Work Phone: Comment on above: [facility] [address] [place], [address] MCH Entitic mass (RBC) 33.1 pg Abnormal 27.0-32.0 [facility] Work Phone: Comment on above: [facility] [address] [place], [address] MCHC mass conc (RBC) 33.8 {g/gl} Normal 32-36 Com prehensive Internal Medicine Work Phone: Comment on above: [facility] [address] [place], [address] MCV Entitic volume (RBC) 97.7 fL Abnormal 80-94 [facility] Work Phone: Comment on above: [facility] [address] [place], [address] Monocytes/100 WBC (Bld) 10.2 % Abnormal 0-10 [facility] Work Phone: Comment on above: [facility] [address] [place], [address] Neutrophils/100 WBC (Bld) 52.2 % Normal 47-70 [facility] Work Phone: Comment on above: [facility] [address] [place], [address] Platelet mean volume Entitic volume (Bld) 11.1 fL Normal 6.2-12.0 Comprehensi Internal Medicine Work Phone: Comment on above: [facility] [address] [place], [address] Platelets #/vol (Bld) 183 10*3/uL Normal 150-450 Co mprehensive Internal Medicine Work Phone: Comment on above: [facility] [address] [place], [address] RBC #/vol (Bld) 4.84 {M/mm3} Normal 4.6-6.2 Compreh [facility] Internal [facility] Work Phone: Comment on above: [facility] [address] [place], [address] RDW SD 46.4 fL Abnormal 35.1-43.9 [facility] Work Phone: Comment on above: [facility] [address] [place], [address] WBC #/vol (Bld) 8.6 10*3/uL Normal 4.4-11.0 Comprehe nsive Internal Medicine Work Phone: Comment on above: [facility] [address] [place], [address] Partial Thromboplast TimeOrd ered By: Car Repairer Helper on 05-06-2015 aPTT Coag time (PPP) 26.8 s Normal 24.1-36.2 Comp rehensive Internal Medicine Work Phone: Comment on above: [facility] [address] [place], [address] Prothrombin Time w/INROrdere d By: Car Repairer Helper on 05-06-2015 INR Coag RelTime (PPP) 0.8 {INR} Normal [facility] Work Phone: Comment on above: [facility] [address] [place], [address] Prothrombin time (PT) Coag time (PPP) 11.7 s Normal 11.7-14.9 [facility] Work Phone: Comment on above: [facility] [address] [place], [address] Troponin-IOrdered By: Car Repairer Helper on 05-06-2015 Troponin I.cardiac mass conc ng/mL Normal [facility] Work Phone: Comment on above: TROPONIN-I EXPECTED VALUES <0.05 NEGATIVE 0.06 - 0.59 AT RISK OF IN > OR = 0.60 SUGGEST IN 'TROP' Serial specim en #1, #2, #3, or #4: [address] [place] [address] 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 Anion gap 6 mmol/L Invalid Interpretation Code [facility] Work Phone: Anion gap molar conc 6 mmol/L [facility] Work Phone: BUN/Creatinine Ratio 13 mg/mg [facility] Work Phone: Calcium 8.7 mg/dL [facility] Work Phone: Glucose 100 mg/dL Invalid Interpretation Code [facility] Work Phone: Glucose mass conc 100 mg/dL [facility] Work Phone: ETRSA-NOVIZDRXKSO-JQHJZ ([phone])Ordered By: Car Repairer Helper on 12-13-2013 AFP.tumor marker mass conc 3.4 ng/mL Normal 0.0-8.3 [facility] Work Phone: Comment on above: Kenna ECLIA methodol ogy PATIENT NOT FASTINGP ERFORMED BY: MIRIAM [facility] Yefxpk7791 [facility] [id number] HEPATIC FUNCTION PANEL ([phone])Ordered By: Car Repairer Helper on 12-13-2013 Albumin mass conc 4.2 g/dL Normal 3.5-5.5 [facility] Internal Medicine Work Phone: Comment on above: PATIENT NOT FASTINGP ERFORMED BY: MIRIAM [facility] Grriwh1616 [facility] [id number] Information: [id number] ALP [Catalytic activity/Vol] 119 U/L Abnormal 39-117 [facility]; [facility] Internal Medicine Work Phone: ALP enzyme act/vol 119 [iU]/L Abnormal 39-117 [facility] Internal Medicine Work Phone: Comment on above: PATIENT NOT FASTINGP ERFORMED BY: MIRIAM Mujica Vuxjhv4754 [facility] [id number] Information: [id number] ALT [Catalytic activity/Vol] 21 U/L Normal 0-44 [facility]; [facility] Work Phone: ALT enzyme act/vol 21 [iU]/L Normal 0-44 [facility] Internal Medicine Work Phone: Comment on above: PATIENT NOT FASTINGP ERFORMED BY: [facility]6370 [facility] [id number] Information: [id number] AST [Catalytic activity/Vol] 24 U/L Normal 0-40 [facility]; [facility] Work Phone: AST enzyme act/vol 24 [iU]/L Normal 0-40 [facility] Internal Medicine Work Phone: Comment on above: PATIENT NOT FASTINGP ERFORMED BY: MIRIAM MujicaChristian Health Care CenterCktepe8568 [facility] [id number] Information: [id number] Bilirubin mass conc 0.4 mg/dL Normal 0.0-1.2 Compr ehensive Internal Medicine Work Phone: Comment on above: PATIENT NOT FASTINGP ERFORMED BY: [facility]6370 [facility] [id number] Information: [id number] Bilirubin.direct mass conc 0.09 mg/dL Normal 0.00-0.40 [facility] Work Phone: Comment on above: PATIENT NOT FASTINGP ERFORMED BY: LabMatthew [place] [id number] [facility] [id number] Information: [id number] Protein mass conc 6.6 g/dL Normal 6.0-8.5 Compreh ensive Internal Medicine Work Phone: Comment on above: PATIENT NOT FASTINGP ERFORMED BY: [place] [id number] [facility] [id number] Information: [id number] AMYLASE (78756)Ordered By: S jensentem [employer] Worker on 11-29-2013 Amylase enzyme act/vol 36 U/L Normal 31-124 [facility] Work Phone: Comment on above: PATIENT NOT FASTINGP ERFORMED BY: [facility]6370 [facility] [id number] CBC, Platelets & Auto Diff ( 53357)Ordered By: Car Repairer Helper on 11-29-2013 Basophils #/vol (Bld) 0.0 {x10E3/uL} Normal 0.0-0.2 [facility] Work Phone: Comment on above: PATIENT NOT FASTINGP ERFORMED BY: [facility]6370 [facility] [id number] Information: [id number] Basophils (Bld) [#/Vol] 0.0 10*3/uL Normal 0.0-0.2 [facility]; [facility] Work Phone: Basophils/100 WBC (Bld) 0 % Normal 0-3 [facility] Work Phone: Comment on above: PATIENT NOT FASTINGP ERFORMED BY: MIRIAM Silpetr TreviñoZtoxja3325 [facility] [id number] Information: [id number] Eosinophils #/vol (Bld) 0.1 {x10E3/uL} Normal 0.0-0.4 [facility] Work Phone: Comment on above: PATIENT NOT FASTINGP ERFORMED BY: MIRIAM [facility] [address] [id number] Information: [id number] Eosinophils (Bld) [#/Vol] 0.1 10*3/uL Normal 0.0-0.4 [facility]; [facility] Work Phone: Eosinophils/100 WBC (Bld) 1 % Normal 0-5 [facility] Work Phone: Comment on above: PATIENT NOT FASTINGP ERFORMED BY: MIRIAM [facility] Bpldrb3142 [facility] [id number] Information: [id number] Erythrocyte distribution width Ratio (RBC) 13.7 % Normal 12.3-15.4 [facility] Work Phone: Comment on above: PATIENT NOT FASTINGP ERFORMED BY: MIRIAM [facility] [id number] Information: [id number] Hematocrit Volume Fraction (Bld) 44.7 % Normal 37.5-51.0 [facility] Work Phone: Comment on above: PATIENT NOT FASTINGP ERFORMED BY: MIRIAM LabCo[address] [id number] Information: [id number] Hemoglobin mass conc (Bld) 15.5 g/dL Normal 12.6-17.7 [facility] Work Phone: Comment on above: PATIENT NOT FASTINGP ERFORMED BY: MIRIAM MujicaBenjamin [place] [id number] [facility] [id number] Information: [id number] Immature granulocytes #/vol (Bld) 0.0 {x10E3/uL} Normal 0.0-0.1 [facility] Work Phone: Comment on above: PATIENT NOT FASTINGP ERFORMED BY: [place] [id number] [facility] [id number] Information: [id number] Immature granulocytes (Bld) [#/Vol] 0.0 10*3/uL Normal 0.0-0.1 [facility]; [facility] Work Phone: Immature granulocytes/100 WBC (Bld) 0 % Normal 0-2 [facility] Work Phone: Comment on above: PATIENT NOT FASTINGP ERFORMED BY: [address] [id number] Information: [id number] Lymphocytes #/vol (Bld) 2.1 {x10E3/uL} Normal 0.7-3.1 [facility] Work Phone: Comment on above: PATIENT NOT FASTINGP ERFORMED BY: MIRIAM Sil Cotqhi6254 [facility] [id number] Information: [id number] Lymphocytes (Bld) [#/Vol] 2.1 10*3/uL Normal 0.7-3.1 [facility]; [facility] Work Phone: Lymphocytes/100 WBC (Bld) 22 % Normal 14-46 [facility] Work Phone: Comment on above: PATIENT NOT FASTINGP ERFORMED BY: MIRIAM MujicaBenjamin Ville [id number] [facility] [id number] Information: [id number] MCH Entitic mass (RBC) 32.5 pg Normal 26.6-33.0 [facility] Work Phone: Comment on above: PATIENT NOT FASTINGP ERFORMED BY: Diamond13 Bruce Streetblin [place] [id number] Information: [id number],[id number] MCHC mass conc (RBC) 34.7 g/dL Normal 31.5-35.7 [facility] Internal Medicine Work Phone: Comment on above: PATIENT NOT FASTINGP ERFORMED BY: [address] [id number] Information: [id number] MCV Entitic volume (RBC) 94 fL Normal 79-97 [facility] Work Phone: Comment on above: PATIENT NOT FASTINGP ERFORMED BY: [address] [id number] Information: [id number] Monocytes #/vol (Bld) 0.9 {x10E3/uL} Normal 0.1-0.9 [facility] Work Phone: Comment on above: PATIENT NOT FASTINGP ERFORMED BY: [address] [id number] Information: [id number] Monocytes (Bld) [#/Vol] 0.9 10*3/uL Normal 0.1-0.9 [facility]; [facility] Work Phone: Monocytes/100 WBC (Bld) 9 % Normal 4-12 [facility] Work Phone: Comment on above: PATIENT NOT FASTINGP ERFORMED BY: [place] [id number] [facility] [id number] Information: [id number] Neutrophils #/vol (Bld) 6.3 {x10E3/uL} Normal 1.4-7.0 [facility] Work Phone: Comment on above: PATIENT NOT FASTINGP ERFORMED BY: [place] [id number] [facility] [id number] Information: [id number] Neutrophils (Bld) [#/Vol] 6.3 10*3/uL Normal 1.4-7.0 [facility]; [facility] Work Phone: Neutrophils/100 WBC (Bld) 68 % Normal 40-74 [facility] Work Phone: Comment on above: PATIENT NOT FASTINGP ERFORMED BY: MIRIAM Mujica Escnii7905 [facility] [id number] Information: [id number] Platelets #/vol (Bld) 230 {x10E3/uL} Normal 150-379 [facility] Work Phone: Comment on above: Please note refere nce interval change PATIENT NOT FASTINGP ERFORMED BY: MIRIAM [address] [id number] Information: [id number] Platelets (Bld) [#/Vol] 230 10*3/uL Normal 150-379 [facility]; [facility] Work Phone: RBC #/vol (Bld) 4.77 {x10E6/uL} Normal 4.14-5.80 [facility] Work Phone: Comment on above: PATIENT NOT FASTINGP ERFORMED BY: MIRIAM [address] [id number] Information: [id number] RBC (Bld) [#/Vol] 4.77 10*6/uL Normal 4.14-5.80 Compr ensive [facility] Medicine; [facility] Work Phone: WBC #/vol (Bld) 9.4 {x10E3/uL} Normal 3.4-10.8 Compr [facility] Internal Medicine Work Phone: Comment on above: CBC Results Repeat ed PATIENT NOT FASTINGP ERFORMED BY: MIRIAM [address] [id number] Information: [id number] WBC (Bld) [#/Vol] 9.4 10*3/uL Normal 3.4-10.8 Compre [facility] Internal Medicine; [facility] Work Phone: LIPASE ([id number])Ordered By: stem Gospel Worker on 11-29-2013 Lipase enzyme act/vol 41 U/L Normal 0-59 Com prehensive Internal Medicine Work Phone: Comment on above: PATIENT NOT FASTINGP ERFORMED BY: MIRIAM [facility] Ywnkjy1238 [address] RoadDublin [place] [id number] Metabolic Panel, Comprehensi ve (83400)Ordered By: Car Repairer Helper on 11-29-2013 Albumin mass conc 4.2 g/dL Normal 3.5-5.5 Compre[facility] Internal [facility] Work Phone: Comment on above: PATIENT NOT FASTINGP ERFORMED BY: CB [facility] Jjeuar2481 [address]eralta RoadDublin [place] [id number] Albumin/Globulin mass ratio 1.8 {ratio} Normal 1.1-2.5 [facility] Internal Medicine Work Phone: Comment on above: PATIENT NOT FASTINGP ERFORMED BY: CB [facility] Jdvecw2954 [address] RoadDublin [place] [id number] ALP [Catalytic activity/Vol] 116 U/L Normal 39-117 [facility]; [facility] Internal Medicine Work Phone: ALP enzyme act/vol 116 [iU]/L Normal 39-117 [facility] Internal Medicine Work Phone: Comment on above: PATIENT NOT FASTINGP ERFORMED BY: CB [facility] Bedxvk9190 [address] RoadDublin [place] [id number] ALT [Catalytic activity/Vol] 31 U/L Normal 0-44 [facility] Internal Medicine; [facility] Internal Medicine Work Phone: ALT enzyme act/vol 31 [iU]/L Normal 0-44 [facility] Internal Medicine Work Phone: Comment on above: PATIENT NOT FASTINGP ERFORMED BY: CB [facility] Nluley7138 [address] RoadDublin [place] [id number] AST [Catalytic activity/Vol] 28 U/L Normal 0-40 [facility]; [facility] Internal Medicine Work Phone: AST enzyme act/vol 28 [iU]/L Normal 0-40 Compre hensive Internal Medicine Work Phone: Comment on above: PATIENT NOT FASTINGP ERFORMED BY: CB [facility] Rlwmrc2501 [address] RoadDublin [place] [id number] Bilirubin mass conc 0.4 mg/dL Normal 0.0-1.2 Compr ehensive Internal Medicine Work Phone: Comment on above: PATIENT NOT FASTINGP ERFORMED BY: CB [facility] Inisyv3020 [address] RoadDublin [place] [id number] Calcium mass conc 9.2 mg/dL Normal 8.7-10.2 Compreh ensive Internal Medicine Work Phone: Comment on above: PATIENT NOT FASTINGP ERFORMED BY: CB [facility] Ptyahq4136 [address] RoadDublin [place] [id number] Chloride molar conc 101 mmol/L Normal 97-108 Compr ensive Internal Medicine Work Phone: Comment on above: PATIENT NOT FASTINGP ERFORMED BY: CB [facility] Tdtalf7211 [address] RoadUnc Health Blue [facility] - [place]antonin [place] [id number] CO2 molar conc 23 mmol/L Normal 18-29 Comprehens randal Internal Medicine Work Phone: Comment on above: Please note refere nce interval change PATIENT NOT FASTINGP ERFORMED BY: CB [facility] Pximvc9177 [address]blin [place] [id number] Creatinine mass conc 0.91 mg/dL Normal 0.76-1.[address] [facility] Work Phone: Comment on above: PATIENT NOT FASTINGP ERFORMED BY: CB [facility] Hmsuzy4913 [address] Roadblin [place] [id number] GFR/1.73 sq M predicted among blacks CKD-EPI vol rate/area (S/P/Bld) 109 mL/min/1.73 Normal Comprehensiv e Internal Medicine Work Phone: Comment on above: PATIENT NOT FASTINGP ERFORMED BY: CB [facility] Ntkpar5535 [address] RoadDublin [place] [id number] GFR/1.73 sq M predicted among non-blacks CKD-EPI vol rate/area (S/P/Bld) 95 mL/min/1.73 Normal [facility] Work Phone: Comment on above: PATIENT NOT FASTINGP ERFORMED BY: MIRIAM Klein[address] [facility] [place] [id number] Globulin mass conc (S) 2.3 g/dL Normal 1.5-4.5 [facility] Work Phone: Comment on above: PATIENT NOT FASTINGP ERFORMED BY: MIRIAM LabMargarita TreviñoZclslx[address] [facility] [place] [id number] Glucose mass conc 102 mg/dL Abnormal 65-99 Compreh ensive Internal Medicine Work Phone: Comment on above: PATIENT NOT FASTINGP ERFORMED BY: MIRIAM Man Bqxuia[address] [facility] [id number] Potassium molar conc 4.2 mmol/L Normal 3.5-5.2 Comp rehensive Internal Medicine Work Phone: Comment on above: PATIENT NOT FASTINGP ERFORMED BY: MIRIAM Man Jobwaq[address] [facility] [id number] Protein mass conc 6.5 g/dL Normal 6.0-8.5 Compreh ensive Internal Medicine Work Phone: Comment on above: PATIENT NOT FASTINGP ERFORMED BY: MIRIAM Man Treviñolin[address] [facility] [id number] Sodium molar conc 138 mmol/L Normal 134-144 Compreh ensive Internal Medicine Work Phone: Comment on above: PATIENT NOT FASTINGP ERFORMED BY: MIRIAM LabMargarita Hovnle[address] [facility] [place] [id number] Urea nitrogen mass conc 11 mg/dL Normal 6-24 [facility] Work Phone: Comment on above: PATIENT NOT FASTINGP ERFORMED BY: MIRIAM LabCharlotterp Nviklw[address] [facility] [place] [id number] Urea nitrogen/Creatinine mass ratio 12 mg/mg Normal 9-20 [facility] Work Phone: Comment on above: PATIENT NOT FASTINGP ERFORMED BY: MIRIAM [facility] Pfsmer4346 [facility] [id number] PSA (PROSTATE SPECIFIC ANTIG EN) (V76.44)Ordered By: Car Repairer Helper on 11-29-2013 Prostate specific Ag mass conc 0.2 ng/mL Normal 0.0-4.0 [facility] Work Phone: Comment on above: Kenna ECLIA methodol ogy. .According to the [place] [employer], Serum PSA shoulddecrease and remain [...] malignant disease. PATIENT NOT FASTINGP ERFORMED BY: [facility] Bcuxjs8138 [facility] [id number] Urinalysis, Office ([id number])Or dered By: Edith Pang on 11-29-2013 Bilirubin [...] [facility] Work Phone: STEPHAN CULTURE-BLOOD ([id number])Ord ered By: Car Repairer Helper on 02-15-2013 Bacteria identified Cx Nom (Bld) Final report Normal [facility] Work Phone: Comment on above: PATIENT NOT FASTINGP ERFORMED BY: MIRIAM LabUlulerp Hjmusf4202 [facility] ServicesOur [facility] [id number] Information: SRC:NADINE [id number] DRAW N@10:05AM Bacteria identified Cx Nom (Bld) NGFD Normal [facility] Work Phone: Comment on above: No aerobic or anaero bic growth in five days. PATIENT NOT FASTINGP ERFORMED BY: MIRIAM [facility] Mldbuq7681 [facility] ServicesOur Community Hospital [id number] Information: SRC:NADINE [id number] DRAW N@10:05AM CBC with manual diff (36549) Ordered By: Car Repairer Helper on 02-15-2013 Basophils #/vol (Bld) 0.1 {x10E3/uL} Normal 0.0-0.2 [facility] Work Phone: Comment on above: PATIENT NOT FASTINGP ERFORMED BY: MIRIAM LabUlulerp Ncroat2944 [facility] ServicesOur Community Hospital [id number] Information: [id number],2ND ORDER NO DRAW F EE Basophils (Bld) [#/Vol] 0.1 10*3/uL Normal 0.0-0.2 [facility]; [facility] Work Phone: Basophils/100 WBC (Bld) 1 % Normal 0-3 [facility] Work Phone: Comment on above: PATIENT NOT FASTINGP ERFORMED BY: MIRIAM Klein6370 [facility] [id number] Information: [id number],2ND ORDER NO DRAW F EE Eosinophils #/vol (Bld) 0.1 {x10E3/uL} Normal 0.0-0.4 [facility] Work Phone: Comment on above: Please note refere nce interval change PATIENT NOT FASTINGP ERFORMED BY: MIRIAM Treviñolin6370 [facility] [id number] Information: K04285,2ND ORDER NO DRAW F EE Eosinophils (Bld) [#/Vol] 0.1 10*3/uL Normal 0.0-0.4 [facility]; [facility] Work Phone: Eosinophils/100 WBC (Bld) 1 % Normal 0-5 [facility] Work Phone: Comment on above: Please note refere nce interval change PATIENT NOT FASTINGP ERFORMED BY: MIRIAM Treviñolin6370 [facility] [id number] Information: U47741,2ND ORDER NO DRAW F EE Erythrocyte distribution width Ratio (RBC) 14.1 % Normal 12.3-15.4 [facility] Work Phone: Comment on above: PATIENT NOT FASTINGP ERFORMED BY: MIRIAM Mujica Bzszqm8943 [facility] [id number] Information: M20604,2ND ORDER NO DRAW F EE Hematocrit Volume Fraction (Bld) 46.1 % Normal 37.5-51.0 [facility] Work Phone: Comment on above: PATIENT NOT FASTINGP ERFORMED BY: MIRIAM MujicaBenjamin Ville [id number] [facility] [id number] Information: L41263,2ND ORDER NO DRAW F EE Hemoglobin mass conc (Bld) 15.8 g/dL Normal 12.6-17.7 [facility] Work Phone: Comment on above: PATIENT NOT FASTINGP ERFORMED BY: MIRIAM Treviñolin6370 [facility] [id number] Information: K08665,2ND ORDER NO DRAW F EE Immature granulocytes #/vol (Bld) 0.0 {x10E3/uL} Normal 0.0-0.1 [facility] Work Phone: Comment on above: PATIENT NOT FASTINGP ERFORMED BY: [address] [id number] Information: Y37054,2ND ORDER NO DRAW F EE Immature granulocytes (Bld) [#/Vol] 0.0 10*3/uL Normal 0.0-0.1 [facility]; [facility] Work Phone: Immature granulocytes/100 WBC (Bld) 0 % Normal 0-2 [facility] Work Phone: Comment on above: PATIENT NOT FASTINGP ERFORMED BY: [address] [id number] Information: [id number],2ND ORDER NO DRAW F EE Lymphocytes #/vol (Bld) 2.5 {x10E3/uL} Normal 0.7-3.1 [facility] Work Phone: Comment on above: Please note refere nce interval change PATIENT NOT FASTINGP ERFORMED BY: [place] [id number] [facility] [id number] Information: [id number],2ND ORDER NO DRAW F EE Lymphocytes (Bld) [#/Vol] 2.5 10*3/uL Normal 0.7-3.1 [facility]; [facility] Work Phone: Lymphocytes/100 WBC (Bld) 29 % Normal 14-46 [facility] Work Phone: Comment on above: Please note refere nce interval change PATIENT NOT FASTINGP ERFORMED BY: MIRIAM Treviñolin6370 [facility] [id number] Information: Z40487,2ND ORDER NO DRAW F EE MCH Entitic mass (RBC) 32.1 pg Normal 26.6-33.0 [facility] Work Phone: Comment on above: PATIENT NOT FASTINGP ERFORMED BY: MIRIAM Treviñolin6370 [facility] [id number] Information: T31714,2ND ORDER NO DRAW F EE MCHC mass conc (RBC) 34.3 g/dL Normal 31.5-35.7 [facility] Internal Medicine Work Phone: Comment on above: PATIENT NOT FASTINGP ERFORMED BY: MIRIAM Mujica Wzmqiq[address] [id number] Information: U60601,2ND ORDER NO DRAW F EE MCV Entitic volume (RBC) 94 fL Normal 79-97 [facility] Work Phone: Comment on above: PATIENT NOT FASTINGP ERFORMED BY: MIRIAM Mujica[address] [id number] Information: U34630,2ND ORDER NO DRAW F EE Monocytes #/vol (Bld) 0.6 {x10E3/uL} Normal 0.1-0.9 [facility] Work Phone: Comment on above: Please note refere nce interval change PATIENT NOT FASTINGP ERFORMED BY: MIRIAM Mujica Mynftx7817 [facility] [id number] Information: N50987,2ND ORDER NO DRAW F EE Monocytes (Bld) [#/Vol] 0.6 10*3/uL Normal 0.1-0.9 [facility]; [facility] Work Phone: Monocytes/100 WBC (Bld) 8 % Normal 4-12 [facility] Work Phone: Comment on above: Please note refere nce interval change PATIENT NOT FASTINGP ERFORMED BY: MIRIAM Treviñolin6370 [facility] [id number] Information: K69803,2ND ORDER NO DRAW F EE Neutrophils #/vol (Bld) 5.2 {x10E3/uL} Normal 1.4-7.0 [facility] Internal Medicine Work Phone: Comment on above: Please note refere nce interval change PATIENT NOT FASTINGP ERFORMED BY: MIRIAM Treviñolin6370 [facility] [id number] Information: K87143,2ND ORDER NO DRAW F EE Neutrophils (Bld) [#/Vol] 5.2 10*3/uL Normal 1.4-7.0 [facility] Internal Medicine; [facility] Internal Medicine Work Phone: Neutrophils/100 WBC (Bld) 61 % Normal 40-74 [facility] Internal Medicine Work Phone: Comment on above: Please note refere nce interval change PATIENT NOT FASTINGP ERFORMED BY: MIRIAM Terviñolin6370 [facility] [id number] Information: S41952,2ND ORDER NO DRAW F EE Platelets #/vol (Bld) 178 {x10E3/uL} Normal 155-379 [facility] Internal Medicine Work Phone: Comment on above: Please note refere nce interval change PATIENT NOT FASTINGP ERFORMED BY: MIRIAM Treviñolin6370 [facility] [id number] Information: [id number],2ND ORDER NO DRAW F EE Platelets (Bld) [#/Vol] 178 10*3/uL Normal 155-379 [facility]; [facility] Internal Medicine Work Phone: RBC #/vol (Bld) 4.92 {x10E6/uL} Normal 4.14-5.80 [facility] Internal Medicine Work Phone: Comment on above: PATIENT NOT FASTINGP ERFORMED BY: MIRIAM MujicaBenjamin Ville [id number] [facility] [id number] Information: [id number],2ND ORDER NO DRAW F EE RBC (Bld) [#/Vol] 4.92 10*6/uL Normal 4.14-5.80 [facility] Internal Medicine; [facility] Work Phone: WBC #/vol (Bld) 8.4 {x10E3/uL} Normal 3.4-10.8 [facility] Internal Medicine Work Phone: Comment on above: Please note refere nce interval change PATIENT NOT FASTINGP ERFORMED BY: CB [facility] Yfgryd7072 [address] RoadDublin [place] [id number] Information: [id number],2ND ORDER NO DRAW F EE WBC (Bld) [#/Vol] 8.4 10*3/uL Normal 3.4-10.8 [facility] Internal Medicine; [facility] Internal Medicine Work Phone: URINALYSIS ([id number])Ordered By : Car Repairer Helper on 02-15-2013 Appearance Nom (U) Clear Normal [facility] Internal Medicine Work Phone: Comment on above: PATIENT NOT FASTINGP ERFORMED BY: CB [facility] Hbljxl0786 [address] RoadDublin [place] [id number] Bilirubin Ql (U) Negative Normal Comprehe nsive Internal Medicine Work Phone: Comment on above: PATIENT NOT FASTINGP ERFORMED BY: CB [facility] Mumqar0955 [address]Dublin [place] [id number] Bilirubin Ql (U) Negative Normal Comprehe nsive Internal Medicine; [facility] Work Phone: Color Nom (U) Yellow Normal Comprehensi ve Internal Medicine Work Phone: Comment on above: PATIENT NOT FASTINGP ERFORMED BY: CB [facility] Tdbnes7941 [address]Dublin [place] [id number] Glucose Ql (U) Negative Normal Comprehens randal Internal Medicine Work Phone: Comment on above: PATIENT NOT FASTINGP ERFORMED BY: CB [facility] Iolead0630 [address]Dublin [place] [id number] Glucose Ql (U) Negative Normal Comprehens randal Internal Medicine; [facility] Work Phone: Hemoglobin Ql (U) Negative Normal Compreh ensive Internal Medicine Work Phone: Comment on above: PATIENT NOT FASTINGP ERFORMED BY: MIRIAM LabMargarita Klein6370 [address]Dublin [place] [id number] Hemoglobin Ql (U) Negative Normal Compreh ensive Internal Medicine; [facility] Work Phone: Ketones Ql (U) Negative Normal Comprehens randal Internal Medicine Work Phone: Comment on above: PATIENT NOT FASTINGP ERFORMED BY: MIRIAM [facility] Zexhiq4803 [address] RoadDublin [place] [id number] Ketones Ql (U) Negative Normal Comprehens randal Internal Medicine; [facility] Work Phone: Leukocyte esterase Test strip Ql (U) Negative Normal [facility] Work Phone: Comment on above: PATIENT NOT FASTINGP ERFORMED BY: MIRIAM [facility] Stnrmn1057 [address] RoadDublin [place] [id number] Leukocyte esterase Test strip Ql (U) Negative Normal [facility]; [facility] Work Phone: Microscopic observation LM Nom (Urine sed) MICRON Normal [facility] Work Phone: Comment on above: Microscopic follows if indicated. PATIENT NOT FASTINGP ERFORMED BY: MIRIAM Man Treviñolin6370 [address] RoadDublin [place] [id number] Nitrite Ql (U) Negative Normal Comprehens randal Internal Medicine Work Phone: Comment on above: PATIENT NOT FASTINGP ERFORMED BY: MIRIAM [facility] Lrlxqd7849 [address] RoadDublin [place] [id number] Nitrite Ql (U) Negative Normal Comprehens randal [facility] Medicine; [facility] Work Phone: pH (U) 7.0 [pH] Normal 5.0-7.5 [facility] Work Phone: Comment on above: PATIENT NOT FASTINGP ERFORMED BY: MIRIAM [facility] Jnwoav0428 [address] RoadDublin [place] [id number] Protein Ql (U) Negative Normal Comprehens randal Internal Medicine Work Phone: Comment on above: PATIENT NOT FASTINGP ERFORMED BY: MIRIAM [facility] Rlgdyo1664 [facility] [id number] Protein Ql (U) Negative Normal Comprehens randal [facility] Medicine; [facility] Work Phone: Specific gravity Relative Density (U) 1.012 1 Normal 1.005-1.03 0 [facility] Work Phone: Comment on above: PATIENT NOT FASTINGP ERFORMED BY: MIRIAM [facility] Wyebod4686 [facility] [id number] Urobilinogen (U) [Mass/Vol] 0.2 mg/dL Normal 0.0-1.9 [facility]; [facility] Work Phone: Urobilinogen Test strip mass conc (U) 0.2 mg/dL Normal 0.0-1.9 Comprehensiv e Internal Medicine Work Phone: Comment on above: PATIENT NOT FASTINGP ERFORMED BY: MIRIAM [facility] Rfnwqf0320 [facility] [id number] Blood Glucose , Office (8296 2)Ordered By: PANFILO Broussard on 01-14-2013 Glucose Glucometer molar conc (BldC) 134 1 Normal [facility] Work Phone: CBC WITH MANUAL DIFF (58460) Ordered By: Car Repairer Helper on 01-14-2013 Basophils #/vol (Bld) 0.1 {x10E3/uL} Normal 0.0-0.2 [facility] Work Phone: Comment on above: PATIENT NOT FASTINGP ERFORMED BY: [facility] Klxwtb9547 [facility] [id number] Information: [id number] Basophils (Bld) [#/Vol] 0.1 10*3/uL Normal 0.0-0.2 [facility]; [facility] Work Phone: Basophils/100 WBC (Bld) 1 % Normal 0-3 [facility] Work Phone: Comment on above: PATIENT NOT FASTINGP ERFORMED BY: MIRIAM [facility]6370 [facility] [id number] Information: [id number] Eosinophils #/vol (Bld) 0.1 {x10E3/uL} Normal 0.0-0.4 [facility] Work Phone: Comment on above: PATIENT NOT FASTINGP ERFORMED BY: [address] [id number] Information: [id number] Eosinophils (Bld) [#/Vol] 0.1 10*3/uL Normal 0.0-0.4 [facility]; [facility] Work Phone: Eosinophils/100 WBC (Bld) 1 % Normal 0-7 [facility] Work Phone: Comment on above: PATIENT NOT FASTINGP ERFORMED BY: [address] [id number] Information: [id number] Erythrocyte distribution width Ratio (RBC) 13.8 % Normal 12.3-15.4 [facility] Work Phone: Comment on above: PATIENT NOT FASTINGP ERFORMED BY: [address] [id number] Information: [id number] Hematocrit Volume Fraction (Bld) 48.5 % Normal 37.5-51.0 [facility] Work Phone: Comment on above: PATIENT NOT FASTINGP ERFORMED BY: [address] [id number] Information: [id number],[id number] Hemoglobin mass conc (Bld) 16.7 g/dL Normal 12.6-17.7 [facility] Work Phone: Comment on above: PATIENT NOT FASTINGP ERFORMED BY: [address] [id number] Information: [id number],R63902 Immature granulocytes #/vol (Bld) 0.0 {x10E3/uL} Normal 0.0-0.1 [facility] Work Phone: Comment on above: PATIENT NOT FASTINGP ERFORMED BY: MIRIAM Sil Pmvpdw7039 [facility] [id number] Information: [id number] Immature granulocytes (Bld) [#/Vol] 0.0 10*3/uL Normal 0.0-0.1 [facility]; [facility] Work Phone: Immature granulocytes/100 WBC (Bld) 0 % Normal 0-2 [facility] Work Phone: Comment on above: PATIENT NOT FASTINGP ERFORMED BY: MIRIAM [facility] Jcqmgc[address] [id number] Information: [id number] Lymphocytes #/vol (Bld) 2.0 {x10E3/uL} Normal 0.7-4.5 [facility] Work Phone: Comment on above: PATIENT NOT FASTINGP ERFORMED BY: MIRIAM [facility]6370 [facility] [id number] Information: [id number] Lymphocytes (Bld) [#/Vol] 2.0 10*3/uL Normal 0.7-4.5 [facility]; [facility] Work Phone: Lymphocytes/100 WBC (Bld) 20 % Normal 14-46 [facility] Work Phone: Comment on above: PATIENT NOT FASTINGP ERFORMED BY: MIRIAM [facility] Qzvmus1005 [facility] [id number] Information: 636132,[id number] MCH Entitic mass (RBC) 32.5 pg Normal 26.6-33.0 [facility] Work Phone: Comment on above: PATIENT NOT FASTINGP ERFORMED BY: [place] [id number] [facility] [id number] Information: [id number] MCHC mass conc (RBC) 34.4 g/dL Normal 31.5-35.7 Comp rehensive Internal Medicine Work Phone: Comment on above: PATIENT NOT FASTINGP ERFORMED BY: MIRIAM Mujica Rjzzsx0516 [facility] [id number] Information: [id number] MCV Entitic volume (RBC) 94 fL Normal 79-97 [facility] Work Phone: Comment on above: PATIENT NOT FASTINGP ERFORMED BY: MIRIAM Mujica Cfvisp1645 [facility] [id number] Information: [id number] Monocytes #/vol (Bld) 1.0 {x10E3/uL} Normal 0.1-1.0 [facility] Work Phone: Comment on above: PATIENT NOT FASTINGP ERFORMED BY: MIRIAM Mujica Qognwq[address] [id number] Information: [id number],[id number] Monocytes (Bld) [#/Vol] 1.0 10*3/uL Normal 0.1-1.0 [facility]; [facility] Work Phone: Monocytes/100 WBC (Bld) 10 % Normal 4-13 [facility] Work Phone: Comment on above: PATIENT NOT FASTINGP ERFORMED BY: MIRIAM Treviñolin6370 [facility] [id number] Information: [id number],[id number] Neutrophils #/vol (Bld) 6.5 {x10E3/uL} Normal 1.8-7.8 [facility] Work Phone: Comment on above: PATIENT NOT FASTINGP ERFORMED BY: MIRIAM [place] 8112770 [facility] [id number] Information: 666609,[id number] Neutrophils (Bld) [#/Vol] 6.5 10*3/uL Normal 1.8-7.8 [facility]; [facility] Work Phone: Neutrophils/100 WBC (Bld) 68 % Normal 40-74 [facility] Work Phone: Comment on above: PATIENT NOT FASTINGP ERFORMED BY: MIRIAM [facility] Ygqjcf1776 [facility] [id number] Information: [id number] Platelets #/vol (Bld) 191 {x10E3/uL} Normal 140-415 [facility] Work Phone: Comment on above: PATIENT NOT FASTINGP ERFORMED BY: [facility]6370 [facility] [id number] Information: [id number] Platelets (Bld) [#/Vol] 191 10*3/uL Normal 140-415 [facility]; [facility] Work Phone: RBC #/vol (Bld) 5.14 {x10E6/uL} Normal 4.14-5.[address] [facility] Work Phone: Comment on above: PATIENT NOT FASTINGP ERFORMED BY: [place] 7766070 [facility] [id number] Information: [id number] RBC (Bld) [#/Vol] 5.14 10*6/uL Normal 4.14-5.80 Compr ehensive Internal Medicine; [facility] Work Phone: WBC #/vol (Bld) 9.7 {x10E3/uL} Normal 4.0-10.5 Compr ensive Internal Medicine Work Phone: Comment on above: PATIENT NOT FASTINGP ERFORMED BY: [facility]6370 [facility] [id number] Information: [id number],[id number] WBC (Bld) [#/Vol] 9.7 10*3/uL Normal 4.0-10.5 Compre [facility] Internal Medicine; [facility] Work Phone: HgA1C , Office ([phone])Ordere d By: Delfina Boyd on 01-14-2013 Hemoglobin A1c/Hemoglobin.total mass fraction (Bld) 5.8 % Normal 4.6 - 7.1 Comprehensiv e Internal Medicine Work Phone: METABOLIC PANEL, COMPREHENSI VE (14123)Ordered By: Car Repairer Helper on 01-14-2013 Albumin mass conc 4.5 g/dL Normal 3.5-5.5 [facility] Internal Medicine Work Phone: Comment on above: PATIENT NOT FASTINGP ERFORMED BY: MIRIAM LabMargarita TreviñoYhxtng6288 [address]ta RoadDublin [place] [id number] Albumin/Globulin mass ratio 1.8 {ratio} Normal 1.1-2.5 [facility] Work Phone: Comment on above: PATIENT NOT FASTINGP ERFORMED BY: MIRIAM [facility] Ushnlm1970 [address] RoadDublin [place] [id number] ALP [Catalytic activity/Vol] 110 U/L Abnormal 44-102 [facility]; [facility] Internal Medicine Work Phone: ALP enzyme act/vol 110 [iU]/L Abnormal 44-102 [facility] Internal Medicine Work Phone: Comment on above: PATIENT NOT FASTINGP ERFORMED BY: MIRIAM LabMargarita TreviñoTxbtlf7964 [address]ta RoadDublin [place] [id number] ALT [Catalytic activity/Vol] 24 U/L Normal 0-44 [facility]; [facility] Work Phone: ALT enzyme act/vol 24 [iU]/L Normal 0-44 [facility] Internal Medicine Work Phone: Comment on above: PATIENT NOT FASTINGP ERFORMED BY: MIRIAM LabMargarita TreviñoUpseap8895 [address] RoadDublin [place] [id number] AST [Catalytic activity/Vol] 22 U/L Normal 0-40 [facility]; [facility] Internal Medicine Work Phone: AST enzyme act/vol 22 [iU]/L Normal 0-40 [facility] Internal Medicine Work Phone: Comment on above: PATIENT NOT FASTINGP ERFORMED BY: MIRIAM LabCopetr Vstnbv5023 [address]eralta RoadDublin [place] [id number] Bilirubin mass conc 0.5 mg/dL Normal 0.0-1.2 [facility] Internal Medicine Work Phone: Comment on above: PATIENT NOT FASTINGP ERFORMED BY: MIRIAM [facility] Rsvavc2415 [address] RoadDublin [place] [id number] Calcium mass conc 9.5 mg/dL Normal 8.7-10.2 Compreh ensive Internal Medicine Work Phone: Comment on above: PATIENT NOT FASTINGP ERFORMED BY: CB [facility] Dssoki4727 [address]eralta RoadDublin [place] [id number] Chloride molar conc 101 mmol/L Normal 97-108 Compr ehensive Internal Medicine Work Phone: Comment on above: PATIENT NOT FASTINGP ERFORMED BY: MIRIAM [facility] Zmnnzr0503 [address] Roadblin [place] [id number] CO2 molar conc 24 mmol/L Normal 19-28 Comprehens randal Internal Medicine Work Phone: Comment on above: PATIENT NOT FASTINGP ERFORMED BY: IMRIAM [facility] Hfshmo8972 [address] RoadUn[facility]in [place] [id number] Creatinine mass conc 1.01 mg/dL Normal 0.76-1.27 Comp rehensive Internal Medicine Work Phone: Comment on above: PATIENT NOT FASTINGP ERFORMED BY: [facility] Mcngry3511 Peral[address] RoadUnc Health [facility] - [place]in [place] [id number] GFR/1.73 sq M predicted among blacks CKD-EPI vol rate/area (S/P/Bld) 97 mL/min/1.73 Normal Comprehensiv e Internal Medicine Work Phone: Comment on above: PATIENT NOT FASTINGP ERFORMED BY: [facility] Mcuhyw7871 Peralta RoadUnc Health [facility] [place] [id number] GFR/1.73 sq M predicted among non-blacks CKD-EPI vol rate/area (S/P/Bld) 84 mL/min/1.73 Normal [facility] Work Phone: Comment on above: PATIENT NOT FASTINGP ERFORMED BY: CB [facility] Rkuzup6344 [address]eralta Roadblin [place] [id number] Globulin mass conc (S) 2.5 g/dL Normal 1.5-4.5 [facility] Work Phone: Comment on above: PATIENT NOT FASTINGP ERFORMED BY: MIRIAM [facility] Jcvjmv1106 [address] RoadDublin [place] [id number] Glucose mass conc 103 mg/dL Abnormal 65-99 Compreh ensive Internal Medicine Work Phone: Comment on above: PATIENT NOT FASTINGP ERFORMED BY: MIRIAM [facility] Vqleef9788 [address] RoadDublin [place] [id number] Potassium molar conc 4.1 mmol/L Normal 3.5-5.2 Comp rehensive Internal Medicine Work Phone: Comment on above: PATIENT NOT FASTINGP ERFORMED BY: CB [facility] Iaxzqv2069 [address] RoadDublin [place] [id number] Protein mass conc 7.0 g/dL Normal 6.0-8.5 Compreh ensive Internal Medicine Work Phone: Comment on above: PATIENT NOT FASTINGP ERFORMED BY: [facility] Dmcvoe2006 Peralta RoadDublin [place] [id number] Sodium molar conc 138 mmol/L Normal 134-144 Compreh ensive Internal Medicine Work Phone: Comment on above: PATIENT NOT FASTINGP ERFORMED BY: [facility] Datupn4664 [address] Roadblin [place] [id number] Urea nitrogen mass conc 16 mg/dL Normal 6-24 [facility] Work Phone: Comment on above: PATIENT NOT FASTINGP ERFORMED BY: [facility] Lgprev3984 [address]eral[address] Roadblin [place] [id number] Urea nitrogen/Creatinine mass ratio 16 mg/mg Normal 9-20 [facility] Work Phone: Comment on above: PATIENT NOT FASTINGP ERFORMED BY: [facility] Sgmbpt[address] [facility] Hospitalblin [place] [id number] PT (Prothrobim Time) (11010) Ordered By: Car Repairer Helper on 01-14-2013 INR Coag RelTime (PPP) 1.0 {INR} Normal 0.8-1.2 [facility] Work Phone: Comment on above: Reference interval i s for non-anticoagulated patients. . Suggested INR therapeutic range for Vitamin K antagonist therapy: Standard Dose (moderate intensity therapeutic range): 2.0 - 3.0 Higher intensity therapeutic range 2.5 - 3.5 PATIENT NOT FASTINGP ERFORMED BY: MIRIAM COMS InteractiveDzilth-Na-O-Dith-Hle Health CenterEumxio2527 [facility] [id number] Prothrombin time (PT) Coag time (PPP) 10.6 {sec} Normal 9.1-12.0 [facility] Work Phone: Comment on above: PATIENT NOT FASTINGP ERFORMED BY: MIRIAM COMS InteractiveChristian Health Care CenterPiutwu5403 [facility] [id number] PT Coag (PPP) [Time] 10.6 s Normal 9.1-12.0 Comp rehensive Internal Medicine; [facility] Work Phone: PTT (Activated Partial Throm boplastin Time) (36647)Ordered By: Car Repairer Helper on 01-14-2013 aPTT Coag (PPP) [Time] 29 [...] general guidelines onHeparin monitoring, refer to the [facility] Directory of Services. PATIENT NOT FASTINGP ERFORMED BY: MIRIAM COMS InteractiveChristian Health Care CenterJrdyot4448 [facility] [id number] CBC With Differential/Platel etOrdered By: Car Repairer Helper on 11-15-2012 Basophils #/vol (Bld) 0.0 {x10E3/uL} Normal 0.0-0.2 [facility] Work Phone: Comment on above: A courtesy copy of t his report has been sent [phone].PERFORMED BY: MIRIAM COMS InteractiveChristian Health Care CenterJxkdrj1885 [facility] [id number] BY: GERALD COMS Interactive ZDO7148 [facility] [id number] BY: TRAVIS COMS Interactiverp Eptyevfhyr[address] [id number] Information: CC:[id number] Basophils/100 WBC (Bld) 0 % Normal 0-3 [facility] Work Phone: Comment on above: A courtesy copy of t his report has been sent [phone].PERFORMED BY: [employer] [place] [id number] BY: Raising ITP1904 [facility] [id number] BY: [address] [id number] Information: CC:[id number] Eosinophils #/vol (Bld) 0.1 {x10E3/uL} Normal 0.0-0.4 [facility] Work Phone: Comment on above: A courtesy copy of t his report has been sent [phone].PERFORMED BY: RunRev70 AbeeloMurray-Calloway [facility] [id number] BY: Raising ITP1904 ViSSee [facility] [id number] BY: COMS Interactive[address] [id number] Information: CC:[id number] Eosinophils/100 WBC (Bld) 1 % Normal 0-7 [facility] Work Phone: Comment on above: A courtesy copy of t his report has been sent [phone].PERFORMED BY: RunRev70 Allied Digital ServicesOur Community Hospital [id number] BY: Raising ITP1904 ViSSee [facility] [id number] BY: [address] [id number] Information: [id number] Erythrocyte distribution width Ratio (RBC) 13.6 % Normal 12.3-15.4 [facility] Work Phone: Comment on above: A courtesy copy of t his report has been sent [phone].PERFORMED BY: MIRIAM NimbixOur Community Hospital [id number] BY: DUARTE COMS Interactive[address] [id number] BY: [address] [id number] Information: CC:[id number] Hematocrit Volume Fraction (Bld) 49.4 % Normal 37.5-51.0 [facility] Work Phone: Comment on above: A courtesy copy of t his report has been sent [phone].PERFORMED BY: MIRIAM NimbixOur Community Hospital [id number] BY: DUARTE COMS Interactive[address] [id number] BY: [facility] Health SystemUlule[address] [id number] Information: CC:[id number] Hemoglobin mass conc (Bld) 17.0 g/dL Normal 12.6-17.7 [facility] Work Phone: Comment on above: A courtesy copy of t his report has been sent [phone].PERFORMED BY: MIRIAM [facility] Vcacmy7292 [facility] Digital ServicesOur Community Hospital [id number] BY: DUARTE COMS Interactive[address] [id number] BY: [address] [id number] Information: CC:[id number] Immature granulocytes #/vol (Bld) 0.0 {x10E3/uL} Normal 0.0-0.1 [facility] Work Phone: Comment on above: A courtesy copy of t his report has been sent [phone].PERFORMED BY: MIRIAM VODECLIC70 [facility] Digital ServicesOur Community Hospital [id number] BY: COMS Interactive[address] [id number] BY: [address] [id number] Information: CC:[id number] Immature granulocytes/100 WBC (Bld) 0 % Normal 0-2 [facility] Work Phone: Comment on above: A courtesy copy of t his report has been sent [phone].PERFORMED BY: MIRIAM COMS Interactive Mwgico2339 PeraltaResearch [facility] [id number] BY: DUARTE COMS Interactive[address] [id number] BY: [address] [id number] Information: CC:[id number] Lymphocytes #/vol (Bld) 2.3 {x10E3/uL} Normal 0.7-4.5 [facility] Work Phone: Comment on above: A courtesy copy of t his report has been sent [phone].PERFORMED BY: MIRIAM COMS Interactive Hqsivp1636 [facility] Digital ServicesOur Community Hospital [id number] BY: DUARTE COMS InteractiveAriana Ville 446854 [facility] [id number] BY: [address] [id number] Information: CC:[id number] Lymphocytes/100 WBC (Bld) 23 % Normal 14-46 [facility] Work Phone: Comment on above: A courtesy copy of t his report has been sent [phone].PERFORMED BY: [employer] Xylbvo7169 PrixelFormerly [facility], [facility] [id number] BY: DUARTE COMS Interactive[address] [id number] BY: [address] [id number] Information: CC:[id number] MCH Entitic mass (RBC) 32.6 pg Normal 26.6-33.0 [facility] Work Phone: Comment on above: A courtesy copy of t his report has been sent [phone].PERFORMED BY: MIRIAM COMS Interactive Laistt1784 [facility] [id number] BY: COMS InteractiveAriana Ville 446854 [facility] [id number] BY: [address] [id number] Information: CC:[id number] MCHC mass conc (RBC) 34.4 g/dL Normal 31.5-35.7 [facility] Internal Medicine Work Phone: Comment on above: A courtesy copy of t his report has been sent [phone].PERFORMED BY: MIRIAM [employer] energy [facility] [id number] BY: DUARTE COMS Interactive[address] [id number] BY: [address] [id number] Information: CC:[id number] MCV Entitic volume (RBC) 95 fL Normal 79-97 [facility] Work Phone: Comment on above: A courtesy copy of t his report has been sent [phone].PERFORMED BY: MIRIAM COMS Interactive Rtrrwj7380 [facility] [id number] BY: [facility] HospitalUlule[address] [id number] BY: [address] [id number] Information: CC:[id number] Monocytes #/vol (Bld) 1.2 {x10E3/uL} Abnormal 0.1-1.0 [facility] Work Phone: Comment on above: A courtesy copy of t his report has been sent [phone].PERFORMED BY: MIRIAM COMS Interactive Hkubnw64[address] [id number] BY: DUARTE COMS InteractiveAlice Ville 35344904 [facility] [id number] BY: TRAVIS FieldsCopetr [address] [id number] Information: CC:[id number] Monocytes/100 WBC (Bld) 12 % Normal 4-13 [facility] Work Phone: Comment on above: A courtesy copy of t his report has been sent [phone].PERFORMED BY: MIRIAM Price PeraltaWeb Reservations InternationalOur Community Hospital [id number] BY: DUARTE COMS Interactivepetr VPE9020 [facility] [id number] BY: LabCo[address] [id number] Information: CC:[id number] Neutrophils #/vol (Bld) 6.4 {x10E3/uL} Normal 1.8-7.8 [facility] Work Phone: Comment on above: A courtesy copy of t his report has been sent [phone].PERFORMED BY: MIRIAM Price PeraltaWeb Reservations InternationalOur Community Hospital [id number] BY: GERALD FieldsUlulepetr DUZ5507 [facility] [id number] BY: TRAVIS FieldsCopetr [address] [id number] Information: CC:[id number] Neutrophils/100 WBC (Bld) 64 % Normal 40-74 [facility] Work Phone: Comment on above: A courtesy copy of t his report has been sent [phone].PERFORMED BY: MIRIAM Kee70 PeraltaWeb Reservations InternationalOur Community Hospital [id number] BY: DUARTE COMS Interactivepetr TNO2190 [facility] [id number] BY: LabCo[address] [id number] Information: CC:[id number] Platelets #/vol (Bld) 206 {x10E3/uL} Normal 140-415 [facility] Work Phone: Comment on above: A courtesy copy of t his report has been sent [phone].PERFORMED BY: Blaze healthOur Community Hospital [id number] BY: [employer] [address] [id number] BY: [address] [id number] Information: CC:[id number] RBC #/vol (Bld) 5.22 {x10E6/uL} Normal 4.14-5.[address] [facility] Work Phone: Comment on above: A courtesy copy of t his report has been sent [phone].PERFORMED BY: Blaze healthOur Community Hospital [id number] BY: [employer] [address] [id number] BY: COMS Interactive[address] [id number] Information: CC:[id number] WBC #/vol (Bld) 10.1 {x10E3/uL} Normal 4.0-10.[address] [facility] Work Phone: Comment on above: A courtesy copy of t his report has been sent [phone].PERFORMED BY: RunRev70 Allied Digital ServicesOur Community Hospital [id number] BY: Poynt[address] [id number] BY: [address] [id number] Information: CC:[id number] Carbon Monoxide, BloodOrdere d By: Car Repairer Helper on 11-15-2012 Carboxyhemoglobin/Hem oglobin.total mass fraction (Bld) 4.4 % Abnormal 0.0-1.9 [facility] Internal Medicine Work Phone: Comment on above: Environmental Exposu re: Nonsmokers <2.0 Smokers <9.0 Occupational Exposure: JOANA 3.5 . Detection Limit = 0.2 A courtesy copy of t his report has been sent [phone].PERFORMED BY: RunRev70 Allied Digital ServicesOur Community Hospital [id number] BY: [employer] TGV8057 ViSSee [facility] [id number] BY: [facility] [address] [id number] Erythropoietin (EPO), SerumO rdered By: Car Repairer Helper on 11-15-2012 Erythropoietin (EPO) Qn [IU]/L Abnormal 4.2-27.8 [facility] Internal Medicine Work Phone: Comment on above: A courtesy copy of t his report has been sent [phone].PERFORMED BY: Acousticeye6370 [facility] Digital ServicesOur Community Hospital [id number] BY: [employer]4 ViSSee [facility] [id number] BY: GiftRocket[address] [id number] JAK2 Mutation Analysis, Qual Ordered By: Car Repairer Helper on 11-15-2012 JAK2 gene p.Pho487Axh Molgen Ql (Bld/Tiss) JAK2N Normal Comprehensi Internal Medicine Work Phone: Comment on above: Result: NEGATIVE for the JAK2 V617F mutation. .Interpretation: The G to T nucleotide change encoding the Y240Tckeybbvp was not detected. This result does not [...] patientswith these disorders. .Lisa Rodriguez M.D., Ph.D., [facility] Melangeur Operator, Molecular Genetics [facility] [place], [place] .JAK2 is a cytoplasmic tyrosine kinase with a ward role in signaltransduction from multiple hematopoietic growth factor receptors. Apoint mutation within exon 14 of the JAK2 gene (G6838W) encoding avaline to phenylalanine substitution at position 617 of the VTA0pvbpydm (V617F) has been identified in most patients [...] for Disease Classification and Diagnosis. [facility] Hvqy5378;80(7):947-958. . A courtesy copy of t his report has been sent [phone].PERFORMED BY: Bluechilli6370 PeraltaWeb Reservations InternationalOur Community Hospital [id number] BY: GERALD COMS Interactive FAG9304 [facility] [id number] BY: COMS Interactive Njdkojaypg3990 [facility] [id number] LDHOrdered By: System Manage r on 11-15-2012 LDH enzyme act/vol 152 [iU]/L Normal 0-225 [facility] Internal Medicine Work Phone: Comment on above: A courtesy copy of t his report has been sent [phone].PERFORMED BY: Bluechilli6370 [address] de IngressosOur Community Hospital [id number] BY: GERALD [facility] XHD9447 Balaji Borrego [facility] [id number] BY: TRAVIS [facility] Wgddcrbdps0680 [facility] [id number] SPINE LUMBAR (ROUTINE)Ordere d By: Car Repairer Helper on 11-03-2012 SPINE LUMBAR (ROUTINE) See Note [...] Sofia M.D.November 03, 2012 at 8:14:18 PM [id number] Signed LL/LL If you are the referring physician and would like to consult with theradiologist who provided this interpretation, please contact Venecia Reyes M.D. at [phone]. If this radiologist is unavailable, you willbe directed to another radiologist to assist. If you are a patient with a question regarding this report, pleasecontactyour referring physician directly. Professional Interpretation Provided By: [employer], Phone , These documents contain legally protected [...] VENECIA SOFIA MD Blood Glucose , Office (1145 2)Ordered By: PANFILO Broussard on 10-21-2012 Glucose Glucometer molar conc (BldC) 90 1 Normal [facility] Work Phone: HgA1C , Office (19722)Ordere d By: PANFILO Broussard on 10-21-2012 Hemoglobin A1c/Hemoglobin.total mass fraction (Bld) 5.8 % Normal 4.6 - 7.1 Comprehensiv e Internal Medicine Work Phone: Blood Glucose , Office (9253 2)Ordered By: Delfina Boyd on 07-22-2012 Glucose Glucometer molar conc (BldC) 106 1 Normal [facility] Work Phone: HgA1C , Office ([phone])Ordere d By: PANFILO Broussard on 07-22-2012 Hemoglobin A1c/Hemoglobin.total mass fraction (Bld) 6.1 % Normal 4.6 - 7.1 Comprehensiv e Internal Medicine Work Phone: [id number] By: DeliverCareRx on 07-21-2012 Hemoglobin A1c/Hemoglobin.total mass fraction (Bld) 6.0 % Normal 4.2-6.3 Comprehensiv e Internal Medicine Work Phone: CBCMDOrdered By: Yeeply Mobile on 07-21-2012 Erythrocyte distribution width Ratio (RBC) [...] mass conc 3.9 g/dL Normal 3.4-5.0 Compreh [facility] Internal Medicine Work Phone: Albumin/Globulin mass ratio 1.1 {RATIO} Normal 0.9-2.4 [facility] Internal Medicine Work Phone: ALP enzyme act/vol 95 U/L Normal 50-136 [facility] Work Phone: ALT enzyme act/vol 30 U/L Normal 12-78 [facility] Internal Medicine Work Phone: Anion gap molar conc 9 mmol/L Normal 5-15 [facility] Internal Medicine Work Phone: AST enzyme act/vol 21 U/L Normal 15-37 [facility] Internal Medicine Work Phone: Bilirubin mass conc [...] > or = 500 mg/dL MIACREOrdered By: EcoTimber Man ager on 07-21-2012 Creatinine mass conc 20.0 {mg/g_CRE} Normal [facility] Work Phone: MIACRE 29.9 mg/L Normal [facility] Work Phone: MIACRE 148.9 mg/dL Normal [facility] Work Phone: UACOrdered By: System Tian[place] Communication r on 07-21-2012 RBC #/vol (U) 0 [...] Blood Glucose , Office ([phone])Ordered By: Jennifer Anthony on 02-11-2012 Glucose Glucometer molar conc ([facility]) 187 1 Normal [facility] Work Phone: Urinalysis, Office ([phone])Or dered By: Maria Isabel Elizabeth on 02-11-2012 [...] [facility] Work Phone: Urinalysis, Office ([phone])on 02-11-2012 Bilirubin Ql (U) Negative Normal Comprehe [...] Internal Medicine Work Phone: HgA1C , Office ([phone])Ordere d By: Cyn Springer on 12-29-2011 Hemoglobin A1c/Hemoglobin.total mass fraction (Bld) 6.4 % Normal 4.6 - 7.1 Comprehensiv e Internal Medicine Work Phone: Blood Glucose , Office ([phone])Ordered By: Cyn Springer on 05-12-2011 Glucose Glucometer molar conc (BldC) 123 1 Normal [facility] Work Phone: HgA1C , Office ([phone])Ordere d By: Cyn Springer on 05-12-2011 Hemoglobin A1c/Hemoglobin.total mass fraction (Bld) 5.8 % Normal 4.6 - 7.1 Comprehensiv e Internal Medicine Work Phone: Blood Glucose , Office ([phone])Ordered By: PANFILO Broussard on 01-03-2011 Glucose Glucometer molar conc (BldC) 129 1 Normal [facility] Work Phone: CBC WITH MANUAL DIFF ([id number]) Ordered By: Car Repairer Helper on 01-03-2011 Basophils #/vol (Bld) 0.1 {x10E3/uL} Normal 0.0-0.2 [facility] Work Phone: Comment on above: PATIENT WAS FASTINGP ERFORMED BY: [id number] [facility] ServicesOur Community Hospital [id number] Basophils (Bld) [#/Vol] 0.1 10*3/uL Normal 0.0-0.2 [facility]; [facility] Work Phone: Basophils/100 WBC (Bld) 1 % Normal 0-3 [facility] Work Phone: Comment on above: PATIENT WAS FASTINGP ERFORMED BY: RunRev70 [facility]eloMurray-[facility] [id number] Eosinophils #/vol (Bld) 0.1 {x10E3/uL} Normal 0.0-0.4 [facility] Work Phone: Comment on above: PATIENT WAS FASTINGP ERFORMED BY: MIRIAM Sil Kpzuso0248 [facility] [id number] Eosinophils (Bld) [#/Vol] 0.1 10*3/uL Normal 0.0-0.4 [facility]; [facility] Work Phone: Eosinophils/100 WBC (Bld) 1 % Normal 0-7 [facility] Work Phone: Comment on above: PATIENT WAS FASTINGP ERFORMED BY: MIRIAM DiamondMercy Hospital St[facility] Lcwdhr7769 [facility] [id number] Erythrocyte distribution width Ratio (RBC) 14.1 % Normal 11.7-15.0 [facility] Work Phone: Comment on above: PATIENT WAS FASTINGP ERFORMED BY: [address] [id number] Hematocrit Volume Fraction (Bld) 46.4 % Normal 36.0-50.0 [facility] Work Phone: Comment on above: PATIENT WAS FASTINGP ERFORMED BY: DiamondMercy Hospital St. Louis Mbtzfp6273 [facility] [id number] Hemoglobin mass conc (Bld) 15.6 g/dL Normal 12.5-17.0 [facility] Work Phone: Comment on above: PATIENT WAS FASTINGP ERFORMED BY: DiamondMatthew Ville [id number] [facility] [id number] Immature granulocytes #/vol (Bld) 0.0 {x10E3/uL} Normal 0.0-0.1 [facility] Work Phone: Comment on above: PATIENT WAS FASTINGP ERFORMED BY: [place] [id number] [facility] [id number] Immature granulocytes (Bld) [#/Vol] 0.0 10*3/uL Normal 0.0-0.1 [facility]; [facility] Work Phone: Immature granulocytes/100 WBC (Bld) 0 % Normal 0-2 [facility] Work Phone: Comment on above: Please note refere nce interval change PATIENT WAS FASTINGP ERFORMED BY: LabCoChristian Health Care CenterKeqitr5497 [address] [facility]in [place] [id number] Lymphocytes #/vol (Bld) 2.4 {x10E3/uL} Normal 0.7-4.5 [facility] Work Phone: Comment on above: PATIENT WAS FASTINGP ERFORMED BY: LabScheurer Hospital6[address] RoadUnc Health Blue [facility] - [place]antonin [place] [id number] Lymphocytes (Bld) [#/Vol] 2.4 10*3/uL Normal 0.7-4.5 [facility]; [facility] Work Phone: Lymphocytes/100 WBC (Bld) 28 % Normal 14-46 [facility] Work Phone: Comment on above: PATIENT WAS FASTINGP ERFORMED BY: LabScheurer Hospital6[address] [facility] [id number] MCH Entitic mass (RBC) 32.8 pg Normal 27.0-34.0 [facility] Work Phone: Comment on above: PATIENT WAS FASTINGP ERFORMED BY: LabSaint Francis Hospital & Health ServicesDfwitq1273 [address] [facility]in [place] [id number] MCHC mass conc (RBC) 33.6 g/dL Normal 32.0-36.[address] [facility] hospitalensive Internal Medicine Work Phone: Comment on above: PATIENT WAS FASTINGP ERFORMED BY: LabCo Sigjcy4839 [address] [facility]in [place] [id number] MCV Entitic volume (RBC) 98 fL Normal 80-98 [facility] Work Phone: Comment on above: PATIENT WAS FASTINGP ERFORMED BY: LabMercy Hospital St. Louis Uyrfzy9742 [address] [facility] GladwinDublin [place] [id number] Monocytes #/vol (Bld) 0.8 {x10E3/uL} Normal 0.1-1.0 [facility] Work Phone: Comment on above: PATIENT WAS FASTINGP ERFORMED BY: MIRIAM [facility] Yelgrv0760 [address]ta RoadDublin [place] [id number] Monocytes (Bld) [#/Vol] 0.8 10*3/uL Normal 0.1-1.0 [facility]; [facility] Work Phone: Monocytes/100 WBC (Bld) 10 % Normal 4-13 [facility] Work Phone: Comment on above: PATIENT WAS FASTINGP ERFORMED BY: CB [facility] Bojgrk3475 [address]ta RoadDublin [place] [id number] Neutrophils #/vol (Bld) 5.1 {x10E3/uL} Normal 1.8-7.8 [facility] Work Phone: Comment on above: PATIENT WAS FASTINGP ERFORMED BY: MIRIAM LabCo Ijvbod8517 [address] RoadDuin [place] [id number] Neutrophils (Bld) [#/Vol] 5.1 10*3/uL Normal 1.8-7.8 [facility]; [facility] Work Phone: Neutrophils/100 WBC (Bld) 60 % Normal 40-74 [facility] Work Phone: Comment on above: PATIENT WAS FASTINGP ERFORMED BY: MIRIAM LabCo Ojgtrc6034 P[address]ta RoadDuin [place] [id number] Platelets #/vol (Bld) 192 {x10E3/uL} Normal 140-415 [facility] Work Phone: Comment on above: PATIENT WAS FASTINGP ERFORMED BY: [facility] Firghr5239 [address] RoadDuin [place] [id number] Platelets (Bld) [#/Vol] 192 10*3/uL Normal 140-415 [facility]; [facility] Work Phone: RBC #/vol (Bld) 4.75 {x10E6/uL} Normal 4.10-5.60 [facility] Internal Medicine Work Phone: Comment on above: PATIENT WAS FASTINGP ERFORMED BY: CB [facility] Sgifrr2250 [address] RoadDublin [place] [id number] RBC (Bld) [#/Vol] 4.75 10*6/uL Normal 4.10-5.60 Compr ensive Internal Medicine; [facility] Work Phone: WBC #/vol (Bld) 8.5 {x10E3/uL} Normal 4.0-10.5 Compr ensive Internal Medicine Work Phone: Comment on above: PATIENT WAS FASTINGP ERFORMED BY: MIRIAM LabUlule Ltrfti0300 [facility] [id number] WBC (Bld) [#/Vol] 8.5 10*3/uL Normal 4.0-10.5 Compre [facility] Internal Medicine; [facility] Work Phone: HgA1C , Office ([phone])Ordere d By: PANFILO Broussard on 01-03-2011 Hemoglobin A1c/Hemoglobin.total mass fraction (Bld) 6.3 % Normal 4.6 - 7.1 Comprehensiv e Internal Medicine Work Phone: LIPID PANEL ([id number])Ordered B y: Car Repairer Helper on 01-03-2011 Cholesterol in HDL mass conc 34 mg/dL Abnormal [facility] Work Phone: Comment on above: According to ATP-III Guidelines, HDL-C >59 mg/dL is considered anegative risk factor for CHD. PATIENT WAS FASTINGP ERFORMED BY: MIRIAM LabUlule Gusoig8196 [facility] [id number] Cholesterol in LDL mass conc 131 mg/dL Abnormal 0-99 [facility] Work Phone: Comment on above: PATIENT WAS FASTINGP ERFORMED BY: LabUlule Dezytk4630 [facility] [id number] Cholesterol in LDL/Cholesterol in HDL mass ratio 3.9 {ratio_units} Abnormal 0.0-3.6 [facility] Work Phone: Comment on above: PATIENT WAS FASTINGP ERFORMED BY: LabUlule Umxgzm9516 [facility] [id number] Cholesterol in VLDL mass conc 73 mg/dL Abnormal 5-40 [facility] Work Phone: Comment on above: PATIENT WAS FASTINGP ERFORMED BY: MIRIAM [facility] Htfnqw3843 [facility] [id number] Cholesterol mass conc 238 mg/dL Abnormal 100-199 Com prehensive Internal Medicine Work Phone: Comment on above: PATIENT WAS FASTINGP ERFORMED BY: MIRIAM [facility] Pbnkel9673 [facility] [id number] Triglyceride mass conc 367 mg/dL Abnormal 0-149 [facility] Work Phone: Comment on above: PATIENT WAS FASTINGP ERFORMED BY: MIRIAM LabCopetr TreviñoGgwrhc3941 [facility] [id number] METABOLIC PANEL, COMPREHENSI VE ([id number])Ordered By: Car Repairer Helper on 01-03-2011 Albumin mass conc 4.3 g/dL Normal 3.5-5.5 Compreh [facility] Internal Medicine Work Phone: Comment on above: PATIENT WAS FASTINGP ERFORMED BY: MIRIAM LabCo Czsrsl3567 [facility] [id number] Albumin/Globulin mass ratio 1.7 {ratio} Normal 1.1-2.5 [facility] Internal Medicine Work Phone: Comment on above: PATIENT WAS FASTINGP ERFORMED BY: MIRIAM LabCharlottepetr TreviñoXyvmlf6724 [facility] [id number] ALP [Catalytic activity/Vol] 105 U/L Normal 25-150 [facility]; [facility] Work Phone: ALP enzyme act/vol 105 [iU]/L Normal 25-150 [facility] Internal Medicine Work Phone: Comment on above: PATIENT WAS FASTINGP ERFORMED BY: MIRIAM [facility] Ojruov6315 [facility] [id number] ALT [Catalytic activity/Vol] 25 U/L Normal 0-55 [facility]; [facility] Work Phone: ALT enzyme act/vol 25 [iU]/L Normal 0-55 [facility] Internal Medicine Work Phone: Comment on above: PATIENT WAS FASTINGP ERFORMED BY: MIRIAM Mujica Bzlijq7196 [address] [facility] [id number] AST [Catalytic activity/Vol] 25 U/L Normal 0-40 [facility]; [facility] Work Phone: AST enzyme act/vol 25 [iU]/L Normal 0-40 Compre [facility] Internal Medicine Work Phone: Comment on above: PATIENT WAS FASTINGP ERFORMED BY: Sil Jnepia7315 [address] [facility] [id number] Bilirubin mass conc 0.3 mg/dL Normal 0.0-1.2 Compr ehensive Internal Medicine Work Phone: Comment on above: PATIENT WAS FASTINGP ERFORMED BY: Sil Oveuyp9798 [facility] [id number] Calcium mass conc 9.6 mg/dL Normal 8.7-10.2 Compreh ensive Internal Medicine Work Phone: Comment on above: PATIENT WAS FASTINGP ERFORMED BY: SilChristian Health Care CenterOiaqmj0122 [facility] [id number] Chloride molar conc 102 mmol/L Normal 97-108 Compr ensive Internal Medicine Work Phone: Comment on above: PATIENT WAS FASTINGP ERFORMED BY: Sil Rudeco1007 [facility] [id number] CO2 molar conc 22 mmol/L Normal 20-32 Comprehens randal Internal Medicine Work Phone: Comment on above: PATIENT WAS FASTINGP ERFORMED BY: LabCharlotteChristian Health Care CenterUgjwjh2471 [facility] [id number] Creatinine mass conc 1.12 mg/dL Normal 0.76-1.[address] [facility] Internal [facility] Work Phone: Comment on above: PATIENT WAS FASTINGP ERFORMED BY: MIRIAM LabCharlotte Tftfgp7175 [facility] [id number] GFR/1.73 sq M predicted among blacks MDRD vol rate/area (S/P/Bld) 87 mL/min/{1.73_m2} Normal Comprehe nsive Internal Medicine Work Phone: Comment on above: Note: A persistent e GFR <60 mL/min/1.73 m2 (3 months or more) mayindicate chronic kidney disease. An eGFR >59 mL/min/1.73 m2 with anelevated urine protein also may indicate chronic kidney disease.Calculated using CKD-EPI formula. PATIENT WAS FASTINGP ERFORMED BY: [facility] Saqqkh2369 [address] [facility] [id number] GFR/1.73 sq M predicted among non-blacks CKD-EPI vol rate/area (S/P/Bld) 75 mL/min/1.73 Normal [facility] Work Phone: Comment on above: PATIENT WAS FASTINGP ERFORMED BY: LabCo Gbsysj9519 [facility] [id number] Globulin mass conc (S) 2.5 g/dL Normal 1.5-4.5 [facility] Work Phone: Comment on above: PATIENT WAS FASTINGP ERFORMED BY: LabCo Kjbsno2694 [facility] [id number] Glucose mass conc 110 mg/dL Abnormal 65-99 Compreh ensive Internal Medicine Work Phone: Comment on above: PATIENT WAS FASTINGP ERFORMED BY: LabCo Fsnbge7387 [facility] [id number] Potassium molar conc 4.2 mmol/L Normal 3.5-5.2 Comp rehensive Internal Medicine Work Phone: Comment on above: PATIENT WAS FASTINGP ERFORMED BY: LabCo Kxafis8259 [facility] [id number] Protein mass conc 6.8 g/dL Normal 6.0-8.5 Compreh ensive Internal Medicine Work Phone: Comment on above: PATIENT WAS FASTINGP ERFORMED BY: LabCo Meziju2442 [facility] [id number] Sodium molar conc 138 mmol/L Normal 135-145 Compreh ensive Internal Medicine Work Phone: Comment on above: PATIENT WAS FASTINGP ERFORMED BY: [facility] Hiacmt0070 [address] RoadUnc [facility] - [place]in [place] [id number] Urea nitrogen mass conc 17 mg/dL Normal 6-24 [facility] Work Phone: Comment on above: PATIENT WAS FASTINGP ERFORMED BY: [facility] Ikmtkb0693 [address] [facility] [id number] Urea nitrogen/Creatinine mass ratio 15 mg/mg Normal 9-20 [facility] Work Phone: Comment on above: PATIENT WAS FASTINGP ERFORMED BY: LabCo Qikvsb9266 [facility] [id number] MICROALBUMINOrdered By: Syst em Gospel Worker on 01-03-2011 Albumin DL <= 20 mg/L (U) [Mass/Vol] mg/dL Normal 0.0-17.0 [facility]; [facility] Work Phone: Albumin DL <= 20 mg/L mass conc (U) mg/dL Normal 0.0-17.0 [facility] Work Phone: Comment on above: PATIENT WAS FASTINGP ERFORMED BY: LabCo Rfdhqo0208 [facility] [id number] Albumin/Creatinine mass ratio (U) <1.3 Normal 0.0-30.0 [facility] Work Phone: Comment on above: PATIENT WAS FASTINGP ERFORMED BY: LabCo Ctybld5153 [address] [facility] [id number] Creatinine mass conc (U) 74.7 mg/dL Normal 22.0-328.0 [facility] Work Phone: Comment on above: PATIENT WAS FASTINGP ERFORMED BY: LabCo Gstflf9553 [facility] [id number] HgA1C , Office ([id number])Ordere d By: Zara Elliott on 09-26-2010 Hemoglobin A1c/Hemoglobin.total mass fraction (Bld) 6.1 % Normal 4.6 - 7.1 Comprehensiv e Internal Medicine Work Phone: CBCD,SMEAR DIFFOrdered By: S ystem Gospel Worker on 09-20-2010 Erythrocyte distribution width Ratio (RBC) [...] mass conc (RBC) 35.4 g/dL Normal 32-36 [facility] Internal Medicine Work Phone: MCV Entitic volume (RBC) 96.6 fL Abnormal 80-94 [facility] Internal Medicine Work Phone: Monocytes/100 WBC (Bld) 5 % Normal 0-10 [facility] Internal Medicine Work Phone: Neutrophils #/vol (Bld) 6.1 3/uL Normal 2.0-7.7 [facility] Internal Medicine Work Phone: Platelets #/vol [...] CBCD,SMEAR DIFF 64 % Normal 47-70 Comprehen [facility] Internal Medicine Work Phone: CBCD,SMEAR DIFF 100 1 Normal Comprehen [facility] Internal Medicine Work Phone: CBCD,SMEAR DIFF SeeNote Normal [facility] Internal Medicine Work Phone: Comment on above: Result: NORM C+C COMP METABOLICOrdered By: Ad stem Gospel Worker on 09-20-2010 Albumin mass conc 3.9 g/dL Normal 3.4-5.0 [facility] Internal [facility] Work Phone: Albumin/Globulin mass ratio 1.3 {RATIO} Normal 0.9-2.4 [facility] Internal Medicine Work Phone: ALP enzyme act/vol 86 U/L Normal 50-136 [facility] Internal Medicine Work Phone: ALT enzyme act/vol 38 U/L Normal 12-78 [facility] Internal Medicine Work Phone: Anion gap molar conc 10 mmol/L Normal 5-15 [facility] Internal Medicine Work Phone: AST enzyme act/vol 27 U/L Normal 15-37 [facility] Internal Medicine Work Phone: Bilirubin mass conc 0.30 mg/dL Normal 0.00-1.00 [facility] Internal Medicine Work Phone: Calcium mass conc 9.2 mg/dL Normal 8.5-10.1 [facility] Internal Medicine Work Phone: Chloride molar conc 102 mmol/L Normal 98-107 [facility] Internal Medicine Work Phone: CO2 molar conc 26.0 mmol/L Normal 21.0-32.0 [facility] Internal Medicine Work Phone: Creatinine mass conc 1.1 mg/dL Normal 0.8-1.3 [facility] Internal Medicine Work Phone: GFR/1.73 sq M predicted among blacks MDRD vol rate/area (S/P/Bld) 91 mL/min/{1.73_m2} Normal Comprehe ive Internal Medicine Work Phone: GFR/1.73 sq M.predicted [...] Medicine Work Phone: MICROALB < 5.0 Normal [facility] Work Phone: BMPOrdered By: System Manage r on 02-19-2010 Anion gap molar conc 6 mmol/L Normal 5-15 Comp rehensive Internal Medicine Work Phone: Comment on above: Please Note: TROPONI N REFERENCE RANGE CHANGEEffective MAY 08, 2009. Calcium mass conc 8.8 mg/dL Normal 8.5-10.1 Compreh ensive Internal Medicine Work Phone: Comment on above: Please Note: TROPONI N REFERENCE RANGE CHANGEEffective MAY 08, 2009. Chloride molar conc 104 mmol/L Normal 98-107 Compr ehensive Internal Medicine Work Phone: Comment on above: Please Note: TROPONI N REFERENCE RANGE CHANGEEffective MAY 08, 2009. CO2 molar conc 30.0 mmol/L Normal 21.0-32.0 Comprehen sive Internal Medicine Work Phone: Comment on above: Please Note: TROPONI N REFERENCE RANGE CHANGEEffective MAY 08, 2009. Creatinine mass conc 1.1 mg/dL Normal 0.8-1.3 Comp rehensive Internal Medicine [...] molar conc 5.0 mmol/L Normal 3.5-5.[address] [facility] Work Phone: Comment on [...] 08, 2009. BRAIN W/WO CONTRASTOrdered B y: Car Repairer Helper on 02-19-2010 BRAIN W/WO CONTRAST See Note Normal Compr ensive Internal Medicine Work Phone: Comment on above: Exam Number: [id number] CLINICAL:49-year-old male with history of meningioma, evaluate for TIA.Left-sided numbness with blurred vision left eye jhxudnvzx25/13/2010. Meningioma was removed in 2003. MRI BRAIN [...] veins. Thereare linear enhancing structures in a spoke wheel pattern in theleft cerebellar hemisphere, appearance consistent [...] CK.MB mass conc 187 U/L Normal 35-232 [facility] Internal Medicine Work Phone: Comment on above: Please Note: TROPONI N REFERENCE RANGE CHANGEEffective MAY 08, 2009. CK.MB mass conc 1.5 ng/mL Normal 0.0-5.0 [facility] Internal Medicine Work Phone: Comment on above: CK-MB and RI Interpr etation MB Relative IndexNon-AMI 5 5 > 4 Please Note: TROPONI N REFERENCE RANGE CHANGEEffective MAY 08, 2009. LIPIDOrdered By: System Salma blevins on 02-19-2010 Cholesterol in HDL mass conc [...] 2009. Cholesterol mass conc 209 mg/dL Abnormal [facility] prehensive Internal Medicine Work Phone: Comment [...] RANGE CHANGEEffective MAY 08, 2009. TROPONIN-IOrdered By: Car Repairer Helper on 02-19-2010 Troponin I.cardiac mass conc ng/mL Normal [facility] Medicine Work Phone: Comment on above: TROPONIN-I EXPECTED VALUES <0.05 NEGATIVE0.06 - 0.59 AT RISK OF IN> OR = 0.60 SUGGEST IN Please Note: TROPONI N REFERENCE RANGE CHANGEEffective MAY 08, 2009. CKMBOrdered By: System Manag er on 02-18-2010 CK.MB mass conc 206 U/L Normal 35-232 [facility] Internal Medicine Work Phone: Comment on above: Please Note: TROPONI N REFERENCE RANGE CHANGEEffective MAY 08, 2009. CK.MB mass conc 1.5 ng/mL Normal 0.0-5.0 Aneesh [facility] Internal Medicine Work Phone: Comment on above: CK-MB and RI Interpr etation MB Relative IndexNon-AMI 5 5 > 4 Please Note: TROPONI N REFERENCE RANGE CHANGEEffective MAY 08, 2009. TROPONIN-IOrdered By: Car Repairer Helper on 02-18-2010 Troponin I.cardiac mass conc ng/mL Normal [facility] Work Phone: Comment on above: TROPONIN-I EXPECTED VALUES <0.05 NEGATIVE0.06 - 0.59 AT RISK OF IN> OR = 0.60 SUGGEST IN Please Note: TROPONI N REFERENCE RANGE CHANGEEffective MAY 08, 2009. COMMENTS: ER RM 10Pl ease Note: TROPONIN REFERENCE RANGE CHANGEEffective MAY 08, 2009. Lipid Panel (42003)Ordered B y: Delfinasonny Boyd on 11-30-2008 Cholesterol in HDL mass conc 31 mg/dL Abnormal [facility] Work Phone: Comment on above: According to ATP-III Guidelines, HDL-C >59 mg/dL is considered anegative risk factor for CHD. PATIENT WAS FASTINGP ERFORMED BY: [facility] CareMurray-[facility] [id number] Cholesterol in VLDL mass conc VLDLCH Normal 5-40 [facility] Work Phone: Comment on above: The calculation for the VLDL cholesterol is not valid whentriglyceride level is >400 mg/dL.Triglyceride result indicated is too high for an accurate LDLcholesterol estimation. PATIENT WAS FASTINGP ERFORMED BY: Acousticeye6370 [employer] [place] [id number] Cholesterol mass conc 264 mg/dL Abnormal 100-199 [facility] prehensive Internal Medicine Work Phone: Comment on above: PATIENT WAS FASTINGP ERFORMED BY: RunRev70 [facility] Digital ServicesOur Community Hospital [id number] Triglyceride mass conc 542 mg/dL Abnormal 0-149 [facility] Internal Medicine Work Phone: Comment on above: PATIENT WAS FASTINGP ERFORMED BY: LabCo Phjmgj9072 [facility] [id number] Metabolic Panel, Comprehensi ve ([id number])Ordered By: Delfina Boyd on 11-30-2008 Albumin mass conc 4.3 g/dL Normal 3.5-5.5 Compreh [facility] Internal Medicine Work Phone: Comment on above: PATIENT WAS FASTINGC linical Information: ADD DRAW FEE [id number] ADD J [id number] PERFORMED BY: LabUluleChristian Health Care CenterToiheb0656 [facility] [id number] Albumin/Globulin mass ratio 1.6 {ratio} Normal 1.1-2.5 [facility] Work Phone: Comment on above: PATIENT WAS FASTINGC linical Information: ADD DRAW FEE [id number] ADD J [id number] PERFORMED BY: COMS InteractiveChristian Health Care CenterZbsore2209 [facility] [id number] ALP [Catalytic activity/Vol] 108 U/L Normal 25-150 [facility]; [facility] Work Phone: ALP enzyme act/vol 108 [iU]/L Normal 25-150 [facility] Internal Medicine Work Phone: Comment on above: PATIENT WAS FASTINGC linical Information: ADD DRAW FEE [id number] ADD J [id number] PERFORMED BY: COMS InteractiveChristian Health Care CenterQujwnh0408 [facility] [id number] ALT [Catalytic activity/Vol] 40 U/L Normal 0-55 [facility]; [facility] Work Phone: ALT enzyme act/vol 40 [iU]/L Normal 0-55 [facility] Internal Medicine Work Phone: Comment on above: PATIENT WAS FASTINGC linical Information: ADD DRAW FEE [id number] ADD J 34854 PERFORMED BY: COMS Interactive [id number] [facility] [id number] AST [Catalytic activity/Vol] 35 U/L Normal 0-40 [facility]; [facility] Work Phone: AST enzyme act/vol 35 [iU]/L Normal 0-40 Compre hensive Internal Medicine Work Phone: Comment on above: PATIENT WAS FASTINGC linical Information: ADD DRAW FEE [id number] ADD J 52630 PERFORMED BY: MIRIAM Klein6370 [facility] [id number] Bilirubin mass conc 0.4 mg/dL Normal 0.1-1.2 Compr ehensive Internal Medicine Work Phone: Comment on above: PATIENT WAS FASTINGC linical Information: ADD DRAW FEE [id number] ADD J 21200 PERFORMED BY: MIRIAM [facility]Mer[facility] Kcluty1165 [facility] [id number] Calcium mass conc 9.8 mg/dL Normal 8.5-10.6 Compreh ensive Internal Medicine Work Phone: Comment on above: PATIENT WAS FASTINGC linical Information: ADD DRAW FEE 904532 ADD J [id number] PERFORMED BY: MIRIAM Treviñolin6370 [facility] [id number] Chloride molar conc 104 mmol/L Normal 97-108 Compr ensive Internal Medicine Work Phone: Comment on above: PATIENT WAS FASTINGC linical Information: ADD DRAW FEE [id number] ADD J 89381 PERFORMED BY: MIRIAM FieldsMercy Hospital St[facility] Eifdbt1962 [facility] [id number] CO2 molar conc 22 mmol/L Normal 20-32 Comprehens randal Internal Medicine Work Phone: Comment on above: PATIENT WAS FASTINGC linical Information: ADD DRAW FEE 444309 ADD J 16535 PERFORMED BY: MIRIAM LabMatthew Ville [id number] [facility] [id number] Creatinine mass conc 1.02 mg/dL Normal 0.76-1.[address] [facility] Work Phone: Comment on above: PATIENT WAS FASTINGC linical Information: ADD DRAW FEE 226610 ADD J 35224 PERFORMED BY: MIRIMA [address] [id number] GFR/1.73 sq M predicted among blacks MDRD [...] WAS FASTINGC linical Information: ADD DRAW FEE 359917 ADD J 54017 PERFORMED BY: AnonymAsk [place] Ninja MetricsFormerly [facility] [id number] GFR/1.73 sq M.predicted MDRD (S/P/Bld) [Vol rate/Area] mL/min/{1.73_m2} Normal [facility] Work Phone: Comment on above: PATIENT WAS FASTINGC linical Information: ADD DRAW FEE 211881 ADD J 50215 PERFORMED BY: weave energy [place] Ninja MetricsFormerly [facility] [id number] GFR/1.73 sq M.predicted MDRD vol rate/area mL/min/{1.73_m2} Normal [facility] Work Phone: Comment on above: PATIENT WAS FASTINGC linical Information: ADD DRAW FEE 767466 ADD J 70596 PERFORMED BY: [id number] [place] Ninja MetricsFormerly [facility] [id number] Globulin mass conc (S) 2.7 g/dL Normal 1.5-4.5 [facility] Work Phone: Comment on above: PATIENT WAS FASTINGC linical Information: ADD DRAW FEE 523000 ADD J 47355 PERFORMED BY: [employer] Mrvjct0113 [place] Ninja MetricsFormerly [facility] [id number] Glucose mass conc 108 mg/dL Abnormal 65-99 Compreh ensive Internal Medicine Work Phone: Comment on above: PATIENT WAS FASTINGC linical Information: ADD DRAW FEE 357446 ADD J 94067 PERFORMED BY: [employer] [id number] [place] Ninja MetricsFormerly [facility] [id number] Potassium molar conc 4.3 mmol/L Normal 3.5-5.2 Comp rehensive Internal Medicine Work Phone: Comment on above: PATIENT WAS FASTINGC linical Information: ADD DRAW FEE 219908 ADD J 84148 PERFORMED BY: LabCo Utrcta1039 [place] Ninja MetricsFormerly [facility] [id number] Protein mass conc 7.0 g/dL Normal 6.0-8.5 Compreh ensive Internal Medicine Work Phone: Comment on above: PATIENT WAS FASTINGC linical Information: ADD DRAW FEE 463017 ADD J 77821 PERFORMED BY: [facility] Gwfilg1673 [facility] [id number] Sodium molar conc 143 mmol/L Normal 135-145 Compreh ensive Internal Medicine Work Phone: Comment on above: PATIENT WAS FASTINGC linical Information: ADD DRAW FEE 783572 ADD J 15360 PERFORMED BY: [facility] Drsdfy7961 [place] Ninja MetricsFormerly [facility] [id number] Urea nitrogen mass conc 12 mg/dL Normal 5-26 [facility] Work Phone: Comment on above: PATIENT WAS FASTINGC linical Information: ADD DRAW FEE 786268 ADD J 09410 PERFORMED BY: [employer] Wystgc8436 [facility] [id number] Urea nitrogen/Creatinine mass ratio 12 mg/mg Normal 8-27 [facility] Work Phone: Comment on above: PATIENT WAS FASTINGC linical Information: ADD DRAW FEE 231805 ADD J 83571 PERFORMED BY: [facility] Ortoje1858 [facility] [id number] PSA (PROSTATE SPECIFIC ANTIG EN) (V76.44)Ordered By: Delfina Boyd on 11-30-2008 Prostate specific Ag mass conc 0.3 ng/mL Normal 0.0-4.0 [facility] Work Phone: Comment on above: Kenna ECLIA methodol ogy. .According to the [place] [employer], PSA should beundetectable after radical prostatectomy. A PSA of less than0.5 ng/mL (or undetectable) is not likely to be associated withdisease recurrence within five years of treatment.Values obtained with different assay methods or kits cannot be usedinterchangeably. Results cannot be interpreted as absolute evidenceof the presence or absence of malignant disease. PATIENT WAS FASTINGP ERFORMED BY: MIRIAM LabScheurer Hospital6370 [facility] [id number] SOFT TISSUE NECK WITH CONTRA STOrdered By: Car Repairer Helper on 09-06-2008 SOFT TISSUE NECK WITH CONTRAST See Note Normal [facility] Work Phone: Comment on above: Exam Number: [id number] CT SOFT TISSUE NECK WITH CONTRAST: [...] 500 mg/dL L/S SPINE,MIN 4 VIEWSOrdered By: Car Repairer Helper on 12-27-2007 L/S SPINE,MIN 4 VIEWS See Note Normal Com prehensive Internal Medicine Work Phone: Comment on above: Exam Number: [id number] LUMBAR SPINE 5 VIEWS CLINICAL STATEMENTBack pain. [facility] 2004 There are 5 lumbar-type vertebral bodies [...] Reported By: ROBIN WHEELER M.D. Exam Number: [id number] CHEST PA AND LATERAL CLINICAL STATEMENTChest and back pain. [facility]Dec[facility] 2006 There is mild scoliotic curvature of the thoracic spine. The heartsize is normal. There is no mediastinal widening. The central hilarvessels appear prominent but unchanged. No acute infiltrate, venouscongestion or pleural effusion is shown. There are degenerativechanges present within the dorsal spine. IMPRESSIONNo acute cardiopulmonary process. No significant interval change. Reported By: ROBIN WHEELER M.D. CHEST, PA AND LATERALOrdered By: Car Repairer Helper on 05-12-2007 CHEST, PA AND LATERAL See Note Normal Com prehensive Internal Medicine Work Phone: Comment on above: Exam Number: [id number] PA AND LATERAL CHEST HISTORY Being [...] M.D. CBC, Platelets & Auto Diff ( 78744)Ordered By: Delfina Boyd on 05-11-2007 Basophils #/vol (Bld) 0.0 {x10E3/uL} Normal 0.0-0.2 [facility] Work Phone: Comment on above: PATIENT NOT FASTINGC linical Information: ADD DRAW FEE 726808 ADD J0 3378 PERFORMED BY: [facility] healthOur [facility] Hospital [id number] Basophils (Bld) [#/Vol] 0.0 10*3/uL Normal 0.0-0.2 [facility]; [facility] Work Phone: Basophils/100 WBC (Bld) 0 % Normal 0-3 [facility] Work Phone: Comment on above: PATIENT NOT FASTINGC linical Information: ADD DRAW FEE 627432 ADD J0 3378 PERFORMED BY: Clear Image TechnologyFormerly [facility] [id number] Eosinophils #/vol (Bld) 0.0 {x10E3/uL} Normal 0.0-0.4 [facility] Work Phone: Comment on above: PATIENT NOT FASTINGC linical Information: ADD DRAW FEE 904656 ADD J0 3378 PERFORMED BY: [facility] healthOur [facility] Hospital [id number] Eosinophils (Bld) [#/Vol] 0.0 10*3/uL Normal 0.0-0.4 [facility]; [facility] Work Phone: Eosinophils/100 WBC (Bld) 0 % Normal 0-7 [facility] Work Phone: Comment on above: PATIENT NOT FASTINGC linical Information: ADD DRAW FEE 734649 ADD J0 3378 PERFORMED BY: Kipu SystemsMatthew Ville [id number] [facility] [id number] Erythrocyte distribution width Ratio (RBC) 13.8 % Normal 11.7-15.0 [facility] Work Phone: Comment on above: PATIENT NOT FASTINGC linical Information: ADD DRAW FEE 576923 ADD J0 3378 PERFORMED BY: [address] [id number] Hematocrit Volume Fraction (Bld) 44.0 % Normal 36.0-50.0 [facility] Work Phone: Comment on above: PATIENT NOT FASTINGC linical Information: ADD DRAW FEE 685943 ADD J0 3378 PERFORMED BY: [employer] [id number] Hemoglobin mass conc (Bld) 15.6 g/dL Normal 12.5-17.0 [facility] Work Phone: Comment on above: PATIENT NOT FASTINGC linical Information: ADD DRAW FEE 504585 ADD J0 3378 PERFORMED BY: [employer] [id number] Lymphocytes #/vol (Bld) 2.7 {x10E3/uL} Normal 0.7-4.5 [facility] Work Phone: Comment on above: PATIENT NOT FASTINGC linical Information: ADD DRAW FEE 182053 ADD J0 3378 PERFORMED BY: [address] [id number] Lymphocytes (Bld) [#/Vol] 2.7 10*3/uL Normal 0.7-4.5 [facility]; [facility] Work Phone: Lymphocytes/100 WBC (Bld) 22 % Normal 14-46 [facility] Work Phone: Comment on above: PATIENT NOT FASTINGC linical Information: ADD DRAW FEE 214169 ADD J0 3378 PERFORMED BY: [employer] [id number] MCH Entitic mass (RBC) 33.6 pg Normal 27.0-34.0 [facility] Work Phone: Comment on above: PATIENT NOT FASTINGC linical Information: ADD DRAW FEE 395161 ADD J0 3378 PERFORMED BY: Kipu SystemsMatthew [place] [id number] [facility] [id number] MCHC mass conc (RBC) 35.4 g/dL Normal 32.0-36.0 [facility] Internal Medicine Work Phone: Comment on above: PATIENT NOT FASTINGC linical Information: ADD DRAW FEE 681157 ADD J0 3378 PERFORMED BY: [address] [id number] MCV Entitic volume (RBC) 95 fL Normal 80-98 [facility] Work Phone: Comment on above: PATIENT NOT FASTINGC linical Information: ADD DRAW FEE 617865 ADD J0 3378 PERFORMED BY: [address] [id number] Monocytes #/vol (Bld) 0.9 {x10E3/uL} Normal 0.1-1.0 [facility] Work Phone: Comment on above: PATIENT NOT FASTINGC linical Information: ADD DRAW FEE 152987 ADD J0 3378 PERFORMED BY: [address] [id number] Monocytes (Bld) [#/Vol] 0.9 10*3/uL Normal 0.1-1.0 [facility]; [facility] Work Phone: Monocytes/100 WBC (Bld) 7 % Normal 4-13 [facility] Work Phone: Comment on above: PATIENT NOT FASTINGC linical Information: ADD DRAW FEE 214136 ADD J0 3378 PERFORMED BY: [place] [id number] [facility] [id number] Neutrophils #/vol (Bld) 8.7 {x10E3/uL} Abnormal 1.8-7.8 [facility] Work Phone: Comment on above: PATIENT NOT FASTINGC linical Information: ADD DRAW FEE 232395 ADD J0 3378 PERFORMED BY: MIRIAM [employer]S Interactive Oewatf6868 [facility] [id number] Neutrophils (Bld) [#/Vol] 8.7 10*3/uL Abnormal 1.8-7.8 [facility]; [facility] Work Phone: Neutrophils/100 WBC (Bld) 71 % Normal 40-74 [facility] Work Phone: Comment on above: PATIENT NOT FASTINGC linical Information: ADD DRAW FEE 565444 ADD J0 3378 PERFORMED BY: MIRIAM [employer] Interactive [address] [place] [address] [id number] Platelets #/vol (Bld) 217 {x10E3/uL} Normal 140-415 [facility] Work Phone: Comment on above: PATIENT NOT FASTINGC linical Information: ADD DRAW FEE 828421 ADD J0 3378 PERFORMED BY: MIRIAM COMS Interactive Uupmwt[address] [place] [address] [id number] Platelets (Bld) [#/Vol] 217 10*3/uL Normal 140-415 [facility]; [facility] Work Phone: RBC #/vol (Bld) 4.64 {x10E6/uL} Normal 4.10-5.60 Comp rehensive Internal Medicine Work Phone: Comment on above: PATIENT NOT FASTINGC linical Information: ADD DRAW FEE 216145 ADD J0 3378 PERFORMED BY: MIRIAM [employer] [id number] RBC (Bld) [#/Vol] 4.64 10*6/uL Normal 4.10-5.60 Compr ehensive Internal Medicine; [facility] Work Phone: WBC #/vol (Bld) 12.2 {x10E3/uL} Abnormal 4.0-10.5 Comp rehensive Internal Medicine Work Phone: Comment on above: PATIENT NOT FASTINGC linical Information: ADD DRAW FEE 074916 ADD J0 3378 PERFORMED BY: MIRIAM Lab80 [address] Streetox [facility] [id number] WBC (Bld) [#/Vol] 12.2 10*3/uL Abnormal 4.0-10.5 [facility] Internal Medicine; [facility] Internal Medicine Work Phone: Metabolic Panel, Comprehensi ve ([id number])Ordered By: Delfina Boyd on 05-11-2007 Albumin mass conc 4.2 g/dL Normal 3.5-5.5 Compreh [facility] Internal Medicine Work Phone: Comment on above: PATIENT NOT FASTINGP ERFORMED BY: CB [facility] Rfzpiy8819 [place] [facility] [id number] Albumin/Globulin mass ratio 1.6 {ratio} Normal 1.1-2.5 [facility] Internal Medicine Work Phone: Comment on above: PATIENT NOT FASTINGP ERFORMED BY: MIRIAM [facility] [id number] [place] [facility] [id number] ALP [Catalytic activity/Vol] 96 U/L Normal 25-150 [facility]; [facility] Internal Medicine Work Phone: ALP enzyme act/vol 96 [iU]/L Normal 25-150 [facility] Internal Medicine Work Phone: Comment on above: PATIENT NOT FASTINGP ERFORMED BY: CB [facility] Lrmbms8362 [place] [facility] [id number] ALT [Catalytic activity/Vol] 27 U/L Normal 0-55 [facility]; [facility] Work Phone: ALT enzyme act/vol 27 [iU]/L Normal 0-55 [facility] Internal Medicine Work Phone: Comment on above: PATIENT NOT FASTINGP ERFORMED BY: CB [facility] Zhgcpo7663 P[place]ta [facility] [place] [id number] AST [Catalytic activity/Vol] 26 U/L Normal 0-40 [facility]; [facility] Work Phone: AST enzyme act/vol 26 [iU]/L Normal 0-40 [facility] Internal Medicine Work Phone: Comment on above: PATIENT NOT FASTINGP ERFORMED BY: CB [facility] Yxgbyl6642 [place] [facility] [id number] Bilirubin mass conc 0.2 mg/dL Normal 0.1-1.2 Compr ehensive Internal Medicine Work Phone: Comment on above: PATIENT NOT FASTINGP ERFORMED BY: MIRIAM [facility] Nfvjqn4104 [place] [facility] [id number] Calcium mass conc 9.7 mg/dL Normal 8.5-10.6 Compreh ensive Internal Medicine Work Phone: Comment on above: PATIENT NOT FASTINGP ERFORMED BY: [facility] Mkxmfp1315 [place] [facility] [id number] Chloride molar conc 103 mmol/L Normal 96-109 Compr ensive Internal Medicine Work Phone: Comment on above: PATIENT NOT FASTINGP ERFORMED BY: LabCoChristian Health Care CenterQoxdmk8432 [facility] [id number] CO2 molar conc 26 mmol/L Normal 20-32 Comprehens randal Internal Medicine Work Phone: Comment on above: PATIENT NOT FASTINGP ERFORMED BY: LabCoChristian Health Care CenterYhcqmx5875 [place] [facility] [id number] Creatinine mass conc 0.9 mg/dL Normal 0.5-1.[address] [facility] Work Phone: Comment on above: PATIENT NOT FASTINGP ERFORMED BY: LabCoChristian Health Care CenterRxeurw7717 [facility] [id number] Globulin mass conc (S) 2.6 g/dL Normal 1.5-4.5 [facility] Work Phone: Comment on above: PATIENT NOT FASTINGP ERFORMED BY: [facility] Dhftnw2850 [place] [facility] [id number] Glucose mass conc 75 mg/dL Normal 65-99 Compreh ensive Internal Medicine Work Phone: Comment on above: PATIENT NOT FASTINGP ERFORMED BY: [facility] Zolslo1863 [place] [facility] [id number] Potassium molar conc 4.1 mmol/L Normal 3.5-5.5 Comp rehensive Internal Medicine Work Phone: Comment on above: PATIENT NOT FASTINGP ERFORMED BY: MIRIAM Man Klein6370 [facility] [id number] Protein mass conc 6.8 g/dL Normal 6.0-8.5 Compreh ensive Internal Medicine Work Phone: Comment on above: PATIENT NOT FASTINGP ERFORMED BY: MIRIAM Man Treviñolin6370 [facility] [id number] Sodium molar conc 138 mmol/L Normal 135-148 Compreh ensive Internal Medicine Work Phone: Comment on above: PATIENT NOT FASTINGP ERFORMED BY: MIRIAM Man Treviñolin6370 [facility] [id number] Urea nitrogen mass conc 14 mg/dL Normal 5-26 [facility] Work Phone: Comment on above: PATIENT NOT FASTINGP ERFORMED BY: MIRIAM Man Treviñolin6370 [facility] [id number] Urea nitrogen/Creatinine mass ratio 16 mg/mg Normal 8-27 [facility] Work Phone: Comment on above: PATIENT NOT FASTINGP ERFORMED BY: MIRIAM Man Treviñolin6370 [facility] [id number] LIPIDOrdered By: Aleksander blevins on 01-09-2007 Cholesterol in HDL mass [...] or = 500 mg/dL TSHOrdered By: System [employer] r on 01-09-2007 Thyrotropin Qn 0.54 {uIU/mL} Normal 0.34-4.82 Compreh [facility] Internal Medicine Work Phone: CPK TOTALOrdered By: Car Repairer Helper on 01-04-2007 CPK TOTAL 110 U/L Normal 35-232 [facility] Internal Medicine Work Phone: Comment on above: INDICATE CK '1', '2' , '3', OR 'R' FOR RANDOM: 3 CPK TOTAL 106 U/L Normal 35-232 [facility] Internal Medicine Work Phone: Comment on above: INDICATE CK '1', '2' , '3', OR 'R' FOR RANDOM: 2 CPKMBOrdered By: System Salma felicity on 01-04-2007 CK.MB mass conc 1.2 ng/mL Normal 0.0-5.0 [facility] Internal Medicine Work Phone: Comment on above: CK-MB and RI Interpr etation MB Relative Index Non-AMI 5 5 > 4 INDICATE CK '1', '2' , '3', OR 'R' FOR RANDOM: 2 CK.MB mass conc 1.3 ng/mL Normal 0.0-5.0 [facility] Internal Medicine Work Phone: Comment on above: CK-MB and RI Interpr etation MB Relative Index Non-AMI 5 5 > 4 INDICATE CK '1', '2' , '3', OR 'R' FOR RANDOM: 3 TROPONIN-IOrdered By: Car Repairer Helper on 01-04-2007 Troponin I.cardiac mass conc ng/mL Normal [facility] Internal Medicine Work Phone: Comment on above: TROPONIN-I EXPECTED VALUES < 0.50 NEGATIVE 0.50 - 1.49 INDETERMINANT > OR = 1.50 SUGGEST IN INDICATE CK '1', '2' , '3', OR 'R' FOR RANDOM: 2 INDICATE CK '1', '2' , '3', OR 'R' FOR RANDOM: 3 BMPOrdered By: [employer] r on 01-03-2007 Anion gap molar conc 9 mmol/L Normal 5-[address] [facility] Work Phone: Comment on above: INDICATE CK '1', '2' , '3', OR 'R' FOR RANDOM: 1 Calcium mass conc 9.1 mg/dL Normal 8.5-10.1 Compreh [facility] Internal Medicine Work Phone: Comment on above: INDICATE CK '1', '2' , '3', OR 'R' FOR RANDOM: 1 Chloride molar conc 103 mmol/L Normal 98-107 [facility] Internal Medicine Work Phone: Comment on above: INDICATE CK '1', '2' , '3', OR 'R' FOR RANDOM: 1 CO2 molar conc 28.1 mmol/L Normal 22.0-29.0 [facility] Work Phone: Comment on above: INDICATE CK '1', '2' , '3', OR 'R' FOR RANDOM: 1 Creatinine mass conc 0.9 mg/dL Normal 0.8-1.[address] [facility] Work Phone: Comment on above: INDICATE CK '1', '2' , '3', OR 'R' FOR RANDOM: 1 Glucose mass conc 95 mg/dL Normal 70-110 [facility] Internal Medicine Work Phone: Comment on above: INDICATE CK '1', '2' , '3', OR 'R' FOR RANDOM: 1 Potassium molar conc 4.1 mmol/L Normal 3.5-5.[address] [facility] Work Phone: Comment on above: INDICATE CK '1', '2' , '3', OR 'R' FOR RANDOM: 1 Sodium molar conc 140 mmol/L Normal 136-145 Compreh [facility] Internal Medicine Work Phone: Comment on above: INDICATE CK '1', '2' , '3', OR 'R' FOR RANDOM: 1 Urea nitrogen mass conc 10 mg/dL Normal 7-18 [facility] Internal Medicine Work Phone: Comment on [...] conc (RBC) 34.8 g/dL Normal 32-36 [facility] Work Phone: MCV Entitic volume [...] #/vol (Bld) 232 10*3/uL Normal 150-450 [facility] Internal [facility] Work Phone: RBC #/vol (Bld) 4.88 {M/mm3} Normal 4.6-6.2 Compreh ensive Internal Medicine Work Phone: WBC #/vol (Bld) 9.9 10*3/uL Normal 4.4-11.0 Comprehe nsive Internal Medicine Work Phone: CPK TOTALOrdered By: Car Repairer Helper on 01-03-2007 CPK TOTAL 125 U/L Normal 35-232 [facility] Work Phone: Comment on above: INDICATE CK '1', '2' , '3', OR 'R' FOR RANDOM: 1 CPKMBOrdered By: System Salma felicity on 01-03-2007 CK.MB mass conc 1.5 ng/mL [...] rehensive Internal Medicine Work Phone: TROPONIN-IOrdered By: Car Repairer Helper on 01-03-2007 Troponin I.cardiac mass conc ng/mL Normal [facility] Work Phone: Comment on above: TROPONIN-I EXPECTED VALUES < 0.50 NEGATIVE 0.50 - 1.49 INDETERMINANT > OR = 1.50 SUGGEST IN COMMENTS: ROOM 1 INDICATE CK '1', '2' , '3', OR 'R' FOR RANDOM: 1 Urinalysis, Office ([id number])Or dered By: Elana Gupta on 12-31-2006 Bilirubin [...] [facility] Work Phone: Urinalysis, Office ([id number])on 12-31-2006 Bilirubin Ql (U) Negative Normal Comprehe [...] Medicine Work Phone: CULTURE, THROATOrdered By: Dereck hardwick Gospel Worker on 12-16-2006 CULTURE, THROAT See Note Normal Comprehen sive Internal Medicine Work Phone: Comment on above: No beta-hemolytic st reptococcus isolated. AMOUNT GROWTH 2+ ORGANISM 1: YEAST LIKE ORGANISM Rapid Strep Test, Office ([phone])Ordered By: ANTHONY BANKS on 12-16-2006 S. pyogenes Ag EIA Ql (Throat) Negative Normal [facility]; [facility] Work Phone: S. pyogenes Ag IA Ql (Unsp spec) Negative Normal [facility] Work Phone: No Panel Information [facility] Vital Signs Date Time Vital Sign Value Performing Clinician Facility 08-27-2022 06:06-0400 SaO2% (BldA) [Mass fraction] 95 % [facility] 08-27-2022 05:59-0400 Body height 172.72 cm [facility] 08-27-2022 05:59-0400 Body mass index (BMI) [Ratio] 33.2 kg/m2 [facility] 08-27-2022 05:59-0400 Body temperature 98.4 [degF] [facility] 08-27-2022 05:59-0400 Body weight 99.1 kg [facility] 08-27-2022 05:59-0400 Diastolic blood pressure 83 mm[Hg] [facility] 08-27-2022 05:59-0400 Heart rate 88 /min [facility] 08-27-2022 05:59-0400 Respiratory rate 16 /min [facility] 08-27-2022 05:59-0400 Systolic blood pressure 183 mm[Hg] [facility] 05-16-2022 10:42-0500 Body height 172.72 cm [facility]; [facility] Work Phone: 05-16-2022 10:42-0500 Body mass index (BMI) [Ratio] 36.55 kg/m2 [facility]; [facility] Work Phone: 05-16-2022 10:42-0500 Body surface area Derived from formula 2.21 m2 [facility]; [facility] Work Phone: 05-16-2022 10:42-0500 Body temperature 96.6 [degF] [facility]; [facility] Work Phone: 05-16-2022 10:42-0500 Body weight 109.03 kg [facility]; [facility] Work Phone: 05-16-2022 10:42-0500 Diastolic blood pressure 68 mm[Hg] [facility]; [facility] Work Phone: 05-16-2022 10:42-0500 Heart rate 88 /min [facility]; [facility] Work Phone: 05-16-2022 10:42-0500 Respiratory rate 18 /min [facility]; [facility] Work Phone: 05-16-2022 10:42-0500 SaO2% (BldA) [Mass fraction] 96 % [facility]; [facility] Work Phone: 05-16-2022 10:42-0500 Systolic blood pressure 118 mm[Hg] [facility]; [facility] Work Phone: 02-14-2022 09:53-0400 Body height 172.72 cm Erica Yip MA [facility]; [facility] Work [...] 172.7 cm Bao Peralta MD Work Phone: [facility] 01-22-2022 15:15-0400 Body weight 106.59 kg Bao Peralta MD Work Phone: [facility] 01-22-2022 15:15-0400 Respiratory rate 18 /min Bao Peralta MD Work Phone: [facility] 12-18-2021 14:39-0400 Body height 174 cm Bao Peralta MD Work Phone: [facility] 12-18-2021 14:39-0400 Body temperature 98.2 [degF] Bao Peralta MD Work Phone: [facility] 12-18-2021 14:39-0400 Body weight 106.59 kg Bao Peralta MD Work Phone: [facility] 12-06-2021 19:47-0400 Diastolic blood pressure 86 mm[Hg] [facility] Work Phone: 12-06-2021 19:47-0400 Heart rate 85 /min [facility] Work Phone: 12-06-2021 19:47-0400 Respiratory rate 18 /min [facility] Work Phone: 12-06-2021 19:47-0400 SaO2% (BldA) [Mass fraction] 95 % [facility] Work Phone: 12-06-2021 19:47-0400 Systolic blood pressure 135 mm[Hg] [facility] Work Phone: 12-06-2021 19:16-0400 Inhaled oxygen flow rate 2 L/min [facility] Work Phone: 12-06-2021 18:48-0400 Body temperature 98 [degF] [facility] Work Phone: 12-06-2021 15:45-0400 Body height 172.72 cm [facility] Work Phone: 12-06-2021 15:45-0400 Body mass index (BMI) [Ratio] 37.9 kg/m2 [facility] Work Phone: 12-06-2021 15:45-0400 Body weight 113.1 kg [facility] Work Phone: 11-13-2021 09:21-0400 [facility] 172.[facility] Work Phone: 11-13-2021 09:21-0400 Body mass index (BMI) [Ratio] 36.58 kg/m2 [facility]; [facility] Work Phone: 11-13-2021 09:21-0400 Body surface area Derived from formula 2.21 m2 [facility]; [facility] Work Phone: 11-13-2021 09:21-0400 Body weight 109.14 kg [facility]; [facility] Work [...] 10:24-0500 Systolic blood pressure 140 mm[Hg] Hayden Tierney LPN [facility]; [facility] Work Phone: 09-19-2020 07:46-0400 BMI (Body Mass Index) 35.88 kg/m2 Hayden Tierney LPN [facility]; [facility] Work [...] /min Hayden Tierney LPN Comprehensiv e [facility]; [facility] Work Phone: Comment on above: Pattern: Regular 09-19-2020 07:46-0400 Pulse Oximetry 92 % Breanna Castañeda [facility]; [facility] Work Phone: Comment on above: Room air 09-19-2020 07:46-0400 Respiratory Rate 18 /min Hayden Tierney LPN [facility]; [facility] Work Phone: Comment on above: Pattern: Unlabored 09-19-2020 07:46-0400 SaO2% (BldA) [Mass fraction] 92 % Hayden Tierney LPN [facility]; [facility] Work Phone: 05-21-2020 08:30-0500 BMI (Body Mass Index) 34.97 kg/m2 Breanna Castañeda HEALTH EDUCATION DIRECTOR Work Phone: [facility]; [facility] Work Phone: 05-21-2020 08:30-0500 Body weight 104.34 kg Breanna Castañeda HEALTH EDUCATION DIRECTOR Work Phone: [facility]; [facility] Work Phone: 05-21-2020 08:30-0500 BP Diastolic 80 mm[Hg] Breanna Castañeda HEALTH EDUCATION DIRECTOR Work Phone: [facility]; [facility] Work Phone: Comment on above: Patient Position: Supine; Cuff Location: Right Arm; Cuff Size: Standard 05-21-2020 08:30-0500 BP Systolic 136 mm[Hg] Breanna Castañeda HEALTH EDUCATION DIRECTOR Work Phone: [facility]; [facility] Work Phone: Comment on above: Patient Position: Supine; Cuff Location: Right Arm; Cuff Size: Standard 05-21-2020 08:30-0500 BSA (Body Surface Area) 2.17 m2 Breanna Castañeda HEALTH EDUCATION DIRECTOR Work Phone: [facility]; [facility] Work Phone: 05-21-2020 08:30-0500 Height 172.72 cm Breanna Castañeda HEALTH EDUCATION DIRECTOR Work Phone: [facility]; [facility] Work Phone: 02-15-2020 11:22-0400 BMI (Body Mass Index) 34.97 kg/m2 [facility] Work Phone: 02-15-2020 11:22-0400 Body Temperature 97.9 [degF] Linda Burdick LPN [facility] Work Phone: 02-15-2020 11:22-0400 Body weight 104.34 kg Linda Burdick LPN [facility] Work Phone: 02-15-2020 11:22-0400 BP Diastolic 90 mm[Hg] Linda Burdick LPN [facility] [...] 02-15-2020 11:22-0400 Height 172.72 cm Linda Burdick LPN [facility] Work Phone: 02-15-2020 11:22-0400 Pulse (Heart Rate) 77 /min Linda Burdick LPN Comprehensi ve Internal Medicine Work Phone: Comment on above: Pattern: Regular 02-15-2020 11:22-0400 Pulse Oximetry 94 % Breanna Castañeda [facility] Work Phone: Comment on above: Room air 02-15-2020 11:22-0400 Respiratory Rate 16 /min Linda Heavenly [facility] Work Phone: Comment on above: Pattern: Unlabored 02-15-2020 11:22-0400 SaO2% (BldA) [Mass fraction] 94 % Linda Heavenly [facility]; [facility] Work Phone: 02-06-2020 08:43-0400 BMI (Body Mass Index) 34.97 kg/m2 Hayden Tierney LPN Comprehen sive Internal Medicine Work Phone: 02-06-2020 08:43-0400 Body Temperature 97.8 [degF] Hayden Tierney LPN [facility] Medicine Work Phone: Comment on above: Method: Infrared 02-06-2020 08:43-0400 Body weight 104.34 kg Hayden Tierney LPN [facility] Medicine Work Phone: 02-06-2020 08:43-0400 BP Diastolic 72 mm[Hg] Hayden Tierney LPN [facility] Medicine Work Phone: Comment on above: Patient Position: Sitting; Cuff Location : Left Arm; Cuff Size: Standard 02-06-2020 08:43-0400 BP Systolic 124 mm[Hg] Hayden Tierney LPN [facility] Work Phone: Comment on above: Patient Position: Sitting; Cuff Location : Left Arm; Cuff Size: Standard 02-06-2020 08:43-0400 BSA (Body Surface Area) 2.17 m2 Hayden Tierney LPN [facility] Medicine Work Phone: 02-06-2020 08:43-0400 Height 172.72 cm Hayden Tierney LPN [facility] Work Phone: 02-06-2020 08:43-0400 Pulse (Heart Rate) 103 /min Hayden Tierney LPN Comprehensiv e Internal Medicine Work Phone: Comment on above: Pattern: Regular 02-06-2020 08:43-0400 Pulse Oximetry 94 % Breanna Castañeda [facility] Work Phone: Comment on above: Room air 02-06-2020 08:43-0400 Respiratory Rate 17 /min Hayden Tierney LPN [facility] Medicine Work Phone: Comment on above: Pattern: Unlabored 02-06-2020 08:43-0400 SaO2% (BldA) [Mass fraction] 94 % Hayden Tierney LPN [facility]; [facility] Work Phone: 11-04-2019 07:33-0400 BMI (Body Mass Index) 34.98 kg/m2 Hayden Tierney LPN Comprehen sive Internal Medicine Work Phone: 11-04-2019 07:33-0400 Body Temperature 97.1 [degF] Hayden Tierney LPN [facility] Work Phone: Comment on above: Method: Temporal 11-04-2019 07:33-0400 Body weight 104.35 kg Hayden Tierney LPN [facility] Medicine Work Phone: 11-04-2019 07:33-0400 BP Diastolic 82 mm[Hg] Hayden Tierney LPN [facility] Work Phone: Comment on above: Patient Position: Sitting; Cuff Location : Left Arm; Cuff Size: Standard 11-04-2019 07:33-0400 BP Systolic 140 mm[Hg] Hayden Tierney LPN [facility] Work Phone: Comment on above: Patient Position: Sitting; Cuff Location : Left Arm; Cuff Size: Standard 11-04-2019 07:33-0400 BSA (Body Surface Area) 2.17 m2 Hayden Tierney LPN [facility] Work Phone: 11-04-2019 07:33-0400 Height 172.72 cm Hayden Tierney LPN [facility] Work Phone: 11-04-2019 07:33-0400 Pulse (Heart Rate) 94 /min Hayden Tierney LPN Comprehensiv e [facility] Medicine Work Phone: Comment on above: Pattern: Regular 11-04-2019 07:33-0400 Pulse Oximetry 95 % Breanna Garry [facility] Work Phone: Comment on above: Room air 11-04-2019 07:33-0400 Respiratory Rate 16 /min Hayden Tierney LPN [facility] Work Phone: Comment on above: Pattern: Unlabored 11-04-2019 07:33-0400 SaO2% (BldA) [Mass fraction] 95 % Hayden Tierney LPN [facility]; [facility] Work Phone: 08-23-2019 07:47-0400 BMI (Body Mass Index) 34.97 kg/m2 Hayden Tierney LPN Comprehen sive Internal Medicine Work Phone: 08-23-2019 07:47-0400 Body Temperature 97.2 [degF] Hayden Tierney LPN [facility] Work Phone: Comment on above: Method: Temporal 08-23-2019 07:47-0400 Body weight 104.33 kg Hayden Tierney LPN [facility] Work Phone: 08-23-2019 07:47-0400 BP Diastolic 80 mm[Hg] Hayden Tierney LPN [facility] Work Phone: Comment on above: Patient Position: Sitting; Cuff Location : Left Arm; Cuff Size: Standard 08-23-2019 07:47-0400 BP Systolic 138 mm[Hg] Hayden Tierney LPN [facility] Work Phone: Comment on above: Patient Position: Sitting; Cuff Location : Left Arm; Cuff Size: Standard 08-23-2019 07:47-0400 BSA (Body Surface Area) 2.17 m2 Hayden Tierney LPN [facility] Work Phone: 08-23-2019 07:47-0400 Height 172.72 cm Hayden Tierney LPN [facility] Work Phone: 08-23-2019 07:47-0400 Pulse (Heart Rate) 82 /min Hayden Tierney LPN Comprehensiv e [facility] Medicine Work Phone: Comment on above: Pattern: Regular 08-23-2019 07:47-0400 Pulse Oximetry 92 % Breanna Garry [facility] Work Phone: Comment on above: Room air 08-23-2019 07:47-0400 Respiratory Rate 18 /min Hayden Tierney KIANNA [facility] Work Phone: Comment on above: Pattern: Unlabored 08-23-2019 07:47-0400 SaO2% (BldA) [Mass fraction] 92 % Hayden Niall [facility]; [facility] Work Phone: 08-15-2019 10:00-0400 BMI (Body Mass Index) 34.12 kg/m2 Pili Slarb CRANK HAND Comprehen sive Internal Medicine Work Phone: 08-15-2019 10:00-0400 Body Temperature 98.2 [degF] Pili Slarb [employer] [facility] Work Phone: 08-15-2019 10:00-0400 Body weight 101.78 kg Pili Slarb [employer] [facility] Work Phone: 08-15-2019 10:00-0400 BP Diastolic 82 mm[Hg] Pili Slarb [employer] [facility] Work Phone: Comment on above: Patient Position: Sitting; Cuff Location : Left Arm; Cuff Size: Standard 08-15-2019 10:00-0400 BP Systolic 142 mm[Hg] Pili Slarb [employer] [facility] Work Phone: Comment on above: Patient Position: Sitting; Cuff Location : Left Arm; Cuff Size: Standard 08-15-2019 10:00-0400 BSA (Body Surface Area) 2.15 m2 Pili Slarb [employer] [facility] Work Phone: 08-15-2019 10:00-0400 Height 172.72 cm Pili Slarb [employer] [facility] Work Phone: 08-15-2019 10:00-0400 Pulse (Heart Rate) 89 /min Pili Slarb [employer] Comprehensiv e Internal Medicine Work Phone: Comment on above: Pattern: Regular 08-15-2019 10:00-0400 Pulse Oximetry 94 % Breanna Castañeda [facility] Work Phone: Comment on above: Room air 08-15-2019 10:00-0400 Respiratory Rate 16 /min Pili Ferreira LPN [facility] Work Phone: Comment on above: Pattern: Unlabored 08-15-2019 10:00-0400 SaO2% (BldA) [Mass fraction] 94 % Pili Ferreira LPN [facility]; [facility] Work Phone: 07-12-2019 08:45-0500 BMI (Body Mass Index) 34.97 kg/m2 Hayden Tierney LPN Comprehen sive Internal Medicine Work Phone: 07-12-2019 08:45-0500 Body Temperature 97.6 [degF] Hayden Tierney LPN [facility] Work Phone: Comment on above: Method: Temporal 07-12-2019 08:45-0500 Body weight 104.33 kg Hayden Tierney LPN [facility] Work Phone: 07-12-2019 08:45-0500 BP Diastolic 80 mm[Hg] Hayden Tierney LPN [facility] Work Phone: Comment on above: Patient Position: Sitting; Cuff Location : Left Arm; Cuff Size: Standard 07-12-2019 08:45-0500 BP Systolic 142 mm[Hg] Hayden Tierney LPN [facility] Work Phone: Comment on above: Patient Position: Sitting; Cuff Location : Left Arm; Cuff Size: Standard 07-12-2019 08:45-0500 BSA (Body Surface Area) 2.17 m2 Hayden Tierney LPN [facility] Work Phone: 07-12-2019 08:45-0500 Height 172.72 cm Hayden Tierney LPN [facility] Work Phone: 07-12-2019 08:45-0500 Pulse (Heart Rate) 90 /min Hayden Tierney LPN Comprehensiv e [facility] Work Phone: Comment on above: Pattern: Regular 07-12-2019 08:45-0500 Pulse Oximetry 92 % Breanna Castañeda [facility] Work Phone: Comment on above: Room air 07-12-2019 08:45-0500 Respiratory Rate 16 /min Hayden Tierney KIANNA [facility] Work Phone: Comment on above: Pattern: Unlabored 07-12-2019 08:45-0500 SaO2% (BldA) [Mass fraction] 92 % Hayden Tierney KIANNA [facility]; [facility] Work Phone: 07-05-2019 07:59-0500 BMI (Body Mass Index) 35.15 kg/m2 Linda Burdick KIANNA Comprehe nsive Internal Medicine Work Phone: 07-05-2019 07:59-0500 Body Temperature 97.8 [degF] Linda Burdick KIANNA [facility] Work Phone: Comment on above: Method: Temporal 07-05-2019 07:59-0500 Body weight 104.87 kg Linda Burdick KIANNA [facility] Work Phone: 07-05-2019 07:59-0500 BP Diastolic 80 mm[Hg] Lindasvetlana Burdick KIANNA [facility] Work Phone: Comment on above: Patient Position: Sitting; Cuff Location : Left Arm; Cuff Size: Standard 07-05-2019 07:59-0500 BP Systolic 140 mm[Hg] Lindasvetlana Burdick [employer] [facility] Work Phone: Comment on above: Patient Position: Sitting; Cuff Location : Left Arm; Cuff Size: Standard 07-05-2019 07:59-0500 BSA (Body Surface Area) 2.17 m2 Lindasvetlana Burdick KIANNA [facility] Work Phone: 07-05-2019 07:59-0500 Height 172.72 cm Linda Burdick KIANNA [facility] Work Phone: 07-05-2019 07:59-0500 Pulse (Heart Rate) 83 /min Lindasvetlana Burdick KIANNA Comprehensi Internal Medicine Work Phone: Comment on above: Pattern: Regular 07-05-2019 07:59-0500 Pulse Oximetry 91 % Breanna Castañeda [facility] Work Phone: Comment on above: Room air 07-05-2019 07:59-0500 Respiratory Rate 16 /min Lindasvetlana Vazquezrachel [facility] Work Phone: Comment on above: Pattern: Unlabored 07-05-2019 07:59-0500 SaO2% (BldA) [Mass fraction] 91 % Linda Heavenly [facility]; [facility] Work Phone: 07-20-2018 14:52-0500 BMI (Body Mass Index) 35.15 kg/m2 Hayden Tierney LPN Comprehen s[facility] Medicine Work Phone: 07-20-2018 14:52-0500 Body Temperature 97 [degF] Hayden Tierney LPN [facility] [...] BP Systolic 152 mm[Hg] Hayden Tierney LPN [facility] Work Phone: Comment on [...] 07-20-2018 14:52-0500 Pulse Oximetry 93 % Breanna Katisonny [facility] Work Phone: Comment on above: Room air 07-20-2018 14:52-0500 Respiratory Rate 18 /min Hayden Tierney LPN [facility] Work Phone: Comment on above: Pattern: Unlabored 07-20-2018 14:52-0500 SaO2% (BldA) [Mass fraction] 93 % Hayden Tierney LPN [facility]; [facility] Work Phone: 07-20-2018 14:52-0500 Weight 104.87 kg Breanna Castañeda [facility] Work Phone: 03-23-2018 14:30-0400 BMI (Body Mass Index) 35.29 kg/m2 Hattie Ellis [facility] Internal Medicine Work Phone: 03-23-2018 14:30-0400 Body Temperature 97.7 [degF] Hattie Ellis [facility] Work Phone: Comment on above: Method: Temporal 03-23-2018 14:30-0400 Body weight 105.29 kg Hattie Ellis [facility] Work Phone: 03-23-2018 14:30-0400 BP Diastolic 88 mm[Hg] Hattie Ellis [facility] Work Phone: Comment on above: Patient Position: Sitting; Cuff Location : Left Arm; Cuff Size: Standard 03-23-2018 14:30-0400 BP Systolic 152 mm[Hg] Hattie Ellis [facility] Work Phone: Comment on above: Patient Position: Sitting; Cuff Location : Left Arm; Cuff Size: Standard 03-23-2018 14:30-0400 BSA (Body Surface Area) 2.18 m2 Hattie Ellis [facility] Work Phone: 03-23-2018 14:30-0400 Height 172.72 cm Hattie Ellis [facility] Work Phone: 03-23-2018 14:30-0400 Pulse (Heart Rate) 78 /min Hattie Ellis [facility] Work Phone: Comment on above: Pattern: Regular 03-23-2018 14:30-0400 Pulse Oximetry 90 % Breanna Castañeda [facility] Work Phone: Comment on above: Room air 03-23-2018 14:30-0400 Respiratory Rate 18 /min Hattie Ellis [facility] Work Phone: Comment on above: Pattern: Unlabored 03-23-2018 14:30-0400 SaO2% (BldA) [Mass fraction] 90 % Hattie Ellis [facility]; [facility] Work Phone: 03-23-2018 14:30-0400 Weight 105.29 kg Breanna Castañeda [facility] Work Phone: 12-04-2017 14:09-0400 BMI (Body Mass Index) 34.36 kg/m2 Edith Pang [facility] Internal Medicine Work Phone: 12-04-2017 14:09-0400 Body Temperature 98.3 [degF] Edith Pang [facility] Work Phone: Comment on above: Method: Temporal 12-04-2017 14:0400 Body weight 102.51 kg Edith Pang [facility] Work Phone: 12-04-2017 14:09-0400 BP Diastolic 70 mm[Hg] Edith Pang [facility] Work Phone: Comment on above: Patient Position: Sitting; Cuff Location : Left Arm; Cuff Size: Standard 12-04-2017 14:09-0400 BP Systolic 122 mm[Hg] Edith Pang [facility] Work Phone: Comment on above: Patient Position: Sitting; Cuff Location : Left Arm; Cuff Size: Standard 12-04-2017 14:09-0400 BSA (Body Surface Area) 2.15 m2 Edith Pang [facility] Work Phone: 12-04-2017 14:09-0400 Height 172.72 cm Edith Pang [facility] Work Phone: 12-04-2017 14:09-0400 Pulse (Heart Rate) 117 /min Edith Pang [facility] Work Phone: Comment on above: Pattern: Regular 12-04-2017 14:09-0400 Respiratory Rate 16 /min Edith Pang GEOPH[employer]ICAL PROSPECTING SURVEYOR [facility] Work Phone: Comment on above: Pattern: Unlabored 12-04-2017 14:09-0400 Weight 102.51 kg Breanna Castañeda [facility] Work Phone: 11-20-2017 13:38-0400 BMI (Body Mass Index) 34.36 kg/m2 Pili Slarb [employer] Comprehen sive Internal Medicine Work Phone: 11-20-2017 13:38-0400 Body Temperature 97.4 [degF] Pili Slarb [employer] [facility] Work Phone: 11-20-2017 13:38-0400 Body weight 102.51 kg Pili Worthyrb [employer] [facility] Work Phone: 11-20-2017 13:38-0400 BP Diastolic 82 mm[Hg] Pili Slarb [employer] [facility] Work Phone: Comment on above: Patient Position: Sitting; Cuff Location : Left Arm; Cuff Size: Standard 11-20-2017 13:38-0400 BP Systolic 120 mm[Hg] Pili Slarb [employer] [facility] Work Phone: Comment on above: Patient Position: Sitting; Cuff Location : Left Arm; Cuff Size: Standard 11-20-2017 13:38-0400 BSA (Body Surface Area) 2.15 m2 Pili Slarb [employer] [facility] Work Phone: 11-20-2017 13:38-0400 Height 172.72 cm Pili Slarb [employer] [facility] Work Phone: 11-20-2017 13:38-0400 Pulse (Heart Rate) 83 /min Pili Slarb [employer] Comprehensiv e Internal Medicine Work Phone: Comment on above: Pattern: Regular 11-20-2017 13:38-0400 Pulse Oximetry 94 % Breanna Castañeda [facility] Work Phone: Comment on above: Room air 11-20-2017 13:38-0400 Respiratory Rate 18 /min Pili Slarb [employer] [facility] Work Phone: Comment on above: Pattern: Unlabored 11-20-2017 13:38-0400 SaO2% (BldA) [Mass fraction] 94 % Pili Ferreira LPN [facility]; [facility] Work Phone: 11-20-2017 13:38-0400 Weight 102.51 kg Breanna Castañeda [facility] Work Phone: 09-01-2017 09:55-0400 BMI (Body Mass Index) 34.82 kg/m2 Cyn Springer RN [facility] Internal Medicine Work Phone: 09-01-2017 09:55-0400 Body [...] 09:55-0400 Pulse Oximetry 92 % Breanna Castañeda [facility] Work [...] 08-11-2017 10:34-0500 Pulse Oximetry 92 % Breanna Elaineterrencesonny [facility] Work Phone: Comment on above: Room air 08-11-2017 10:34-0500 Respiratory Rate 16 /min Hayden Tierney LPN [facility] Work Phone: Comment on above: Pattern: Unlabored 08-11-2017 10:34-0500 SaO2% (BldA) [Mass fraction] 92 % Hayden Niall [facility]; [facility] [...] 08-10-2017 15:01-0500 Body weight 101.61 kg Cyn Springer RN [facility] Work Phone: 08-10-2017 15:01-0500 BP Diastolic 84 mm[Hg] Cyn Springer RN [facility] Work Phone: Comment on above: Patient Position: Sitting; Cuff Location : Left Arm; Cuff Size: Standard 08-10-2017 15:01-0500 BP Systolic 148 mm[Hg] Cyn Springer [...] 08-10-2017 15:01-0500 Pulse Oximetry 96 % Breanna Castañeda [facility] Work Phone: Comment on above: Room air 08-10-2017 15:01-0500 Respiratory Rate 16 /min Cyn Springer RN [facility] Work Phone: Comment on above: Pattern: Unlabored 08-10-2017 15:01-0500 SaO2% (BldA) [Mass fraction] 96 % Cyn Springer RN [facility]; [facility] Work Phone: 08-10-2017 15:01-0500 Weight 101.61 kg Breanna Castañeda [facility] Internal Medicine Work Phone: 12-26-2016 13:03-0400 BMI (Body Mass Index) 33.86 kg/m2 Timothy BLACK [facility] Work Phone: 12-26-2016 13:03-0400 Body Temperature 97.4 [degF] Timothy BLACK [facility] Work Phone: 12-26-2016 13:03-0400 BP Diastolic 94 mm[Hg] Timothy BLACK [facility] Work Phone: 12-26-2016 13:03-0400 BP Systolic 140 mm[Hg] Timothy BLACK [facility] Work Phone: 12-26-2016 13:03-0400 Height 173.99 cm Timothy BLACK [facility] Work Phone: 12-26-2016 13:03-0400 Pulse (Heart Rate) 82 /min Timothy BLACK [facility] Work Phone: 12-26-2016 13:03-0400 Respiratory Rate 12 /min Timothy BLACK [facility] Work Phone: 12-26-2016 13:03-0400 Weight 102.51 kg Timothy BLACK [facility] Work Phone: 05-14-2016 10:45-0500 BMI (Body Mass Index) 34.06 kg/m2 Cyn Springer RN [facility] Internal Medicine Work Phone: 05-14-2016 10:45-0500 Body [...] 05-14-2016 10:45-0500 Pulse (Heart Rate) 77 /min Cny Springer RN [facility] Work Phone: Comment on above: Pattern: Regular 05-14-2016 10:45-0500 Pulse Oximetry 95 % Breanna Castañeda [facility] Work Phone: Comment on above: Room air 05-14-2016 10:45-0500 Respiratory Rate 16 /min Cyn Springer RN [facility] Work Phone: Comment on above: Pattern: Unlabored 05-14-2016 10:45-0500 SaO2% (BldA) [Mass fraction] 95 % Cyn Springer RN [facility]; [facility] Work Phone: 05-14-2016 10:45-0500 Weight 101.61 kg Breanna Castañeda [facility] Work Phone: 05-12-2016 15:22-0500 BSA (Body Surface Area) 2.15 m2 Timothy BLACK [facility] Work Phone: 01-15-2016 08:18-0400 BMI (Body Mass Index) 32.99 kg/m2 Cyn Springer RN [facility] Internal Medicine Work Phone: 01-15-2016 08:18-0400 Body [...] 08:18-0400 Pulse Oximetry 97 % Breanna Castañeda [facility] Internal Medicine Work Phone: Comment on above: Room air 01-15-2016 08:18-0400 Respiratory Rate 16 /min Cyn Springer RN [facility] Work Phone: Comment on above: Pattern: Unlabored 01-15-2016 08:18-0400 SaO2% (BldA) [Mass fraction] 97 % Cyn Springer RN [facility]; [facility] Work Phone: 01-15-2016 08:18-0400 Weight 98.43 kg Breanna Castañeda [facility] Internal Medicine Work Phone: 10-15-2015 08:41-0400 [...] 08:41-0400 Height 172.72 cm PANFILO Broussard LPN [facility] Work Phone: 10-15-2015 08:41-0400 Pulse (Heart Rate) 74 /min PANFILO Broussard LPN [facility] Internal Medicine Work Phone: Comment on above: Pattern: Regular 10-15-2015 08:41-0400 Pulse Oximetry 95 % Breanna Castañeda [facility] Internal Medicine Work Phone: Comment on above: Room air 10-15-2015 08:41-0400 Respiratory Rate 20 /min PANFILO Broussard LPN [facility] Work Phone: Comment on above: Pattern: Unlabored 10-15-2015 08:41-0400 SaO2% (BldA) [Mass fraction] 95 % PANFILO Broussard LPN [facility]; [facility] Work Phone: 10-15-2015 08:41-0400 Weight 95.26 kg Breanna Castañeda [facility] Internal Medicine Work Phone: 09-14-2015 07:56-0400 BMI (Body Mass Index) 32.99 kg/m2 PANFILO Broussard LPN [facility] Work Phone: 09-14-2015 07:56-0400 Body Temperature 97.6 [degF] PANFILO Broussard LPN [facility] Work Phone: Comment on above: Method: Temporal 09-14-2015 07:56-0400 Body weight 98.43 kg PANFILO Broussard LPN [facility] Work Phone: 09-14-2015 07:56-0400 BP Diastolic 90 mm[Hg] PANFILO Broussard LPN [facility] Work Phone: Comment on above: Patient Position: Sitting; Cuff Location : Left Arm; Cuff Size: Standard 09-14-2015 07:56-0400 BP Systolic 124 mm[Hg] PANFILO Broussard LPN [facility] Work Phone: Comment on above: Patient Position: Sitting; Cuff Location : Left Arm; Cuff Size: Standard 09-14-2015 07:56-0400 BSA (Body Surface Area) 2.12 m2 PANFILO Broussard LPN [facility] Internal Medicine Work Phone: 09-14-2015 07:56-0400 Height 172.72 cm PANFILO Broussard LPN [facility] Internal Medicine Work Phone: 09-14-2015 07:56-0400 Pulse (Heart Rate) 80 /min PANFILO Broussard LPN [facility] Internal Medicine Work Phone: Comment on above: Pattern: Regular 09-14-2015 07:56-0400 Pulse Oximetry 94 % Breanna Castañeda [facility] Internal Medicine Work Phone: Comment on above: Room air 09-14-2015 07:56-0400 Respiratory Rate 20 /min PANFILO Broussard LPN [facility] Internal Medicine Work Phone: Comment on above: Pattern: Unlabored 09-14-2015 07:56-0400 SaO2% (BldA) [Mass fraction] 94 % PANFILO Broussard LPN [facility]; [facility] Work Phone: 09-14-2015 07:56-0400 Weight 98.43 kg Breanna Castañeda [facility] Internal Medicine Work Phone: 07-16-2015 11:08-0500 BMI (Body Mass Index) 33.3 kg/m2 Edith Pang [facility] Internal Medicine Work Phone: 07-16-2015 11:08-0500 Body Temperature 98.7 [degF] Edith Pang [facility] Internal Medicine Work Phone: Comment on above: Method: Oral 07-16-2015 11:08-0500 Body weight 99.34 kg Edith Pang [facility] Internal Medicine Work Phone: 07-16-2015 11:08-0500 BP Diastolic 80 mm[Hg] Edith Pang [facility] Internal Medicine Work Phone: Comment on above: Patient Position: Sitting; Cuff Location : Left Arm; Cuff Size: Standard 07-16-2015 11:08-0500 BP Systolic 152 mm[Hg] Edith Pang [facility] Internal Medicine Work Phone: Comment on above: Patient Position: Sitting; Cuff Location : Left Arm; Cuff Size: Standard 07-16-2015 11:08-0500 BSA (Body Surface Area) 2.12 m2 Edith Pang [facility] Internal Medicine Work Phone: 07-16-2015 11:08-0500 Height 172.72 cm Edith Pang [facility] Internal Medicine Work Phone: 07-16-2015 11:08-0500 Pulse (Heart Rate) 84 /min Edith Pang [facility] Internal Medicine Work Phone: Comment on above: Pattern: Regular 07-16-2015 11:08-0500 Pulse Oximetry 91 % Breanna Castañeda [facility] Internal Medicine Work Phone: Comment on above: Room air 07-16-2015 11:08-0500 Respiratory Rate 16 /min Edith Pang [facility] Internal Medicine Work Phone: Comment on above: Pattern: Unlabored 07-16-2015 11:08-0500 SaO2% (BldA) [Mass fraction] 91 % Edith Pang [facility]; [facility] Work Phone: 07-16-2015 11:08-0500 Weight 99.34 kg [facility] Work Phone: 06-04-2015 12:59-0500 BMI (Body Mass Index) 33.3 kg/m2 PANFILO Broussard LPN [facility] Internal Medicine Work Phone: 06-04-2015 12:59-0500 Body Temperature 97.6 [degF] PANFILO Broussard LPN [facility] Internal Medicine Work Phone: Comment on above: Method: Temporal 06-04-2015 12:59-0500 Body weight 99.34 kg PANFILO Broussard LPN [facility] Internal Medicine Work Phone: 06-04-2015 12:59-0500 BP Diastolic 94 mm[Hg] PANFILO Broussard LPN [facility] Internal Medicine Work Phone: Comment on above: Patient Position: Sitting; Cuff Location : Left Arm; Cuff Size: Standard 06-04-2015 12:59-0500 BP Systolic 164 mm[Hg] PANFILO Broussard LPN [facility] Internal Medicine Work Phone: Comment on above: Patient Position: Sitting; Cuff Location : Left Arm; Cuff Size: Standard 06-04-2015 12:59-0500 BSA (Body Surface Area) 2.12 m2 PANFILO Broussard LPN [facility] Internal Medicine Work Phone: 06-04-2015 12:59-0500 Height 172.72 cm PANFILO Broussard LPN [facility] Internal Medicine Work Phone: 06-04-2015 12:59-0500 Pulse (Heart Rate) 84 /min PANFILO Broussard LPN [facility] Internal Medicine Work Phone: Comment on above: Pattern: Regular 06-04-2015 12:59-0500 Pulse Oximetry 95 % Breanna Castañeda [facility] Internal Medicine Work Phone: Comment on above: Room air 06-04-2015 12:59-0500 Respiratory Rate 20 /min PANFILO Broussard LPN [facility] Internal Medicine Work Phone: Comment on above: Pattern: Unlabored 06-04-2015 12:59-0500 SaO2% (BldA) [Mass fraction] 95 % PANFILO Broussard LPN [facility]; [facility] Work Phone: 06-04-2015 12:59-0500 Weight 99.34 kg Breanna Castañeda [facility] Medicine Work Phone: 04-24-2015 14:13-0500 Pulse Oximetry 96 % Timothy BLACK [facility] Work Phone: 03-26-2015 16:00-0400 BMI (Body Mass Index) 31.17 kg/m2 [facility] Work Phone: 03-26-2015 16:00-0400 Body Temperature 98.3 [degF] Claudine Rose [facility] Internal Medicine Work Phone: Comment on above: Method: Temporal 03-26-2015 16:00-0400 Body weight 92.99 kg Claudine Rose [facility] Internal Medicine Work Phone: 03-26-2015 16:00-0400 BP Diastolic 84 mm[Hg] Claudine Rose [facility] Internal Medicine Work Phone: Comment on above: Patient Position: Sitting; Cuff Location : Left Arm; Cuff Size: Standard 03-26-2015 16:00-0400 BP Systolic 156 mm[Hg] Claudine Rose [facility] Internal Medicine Work Phone: Comment on above: Patient Position: Sitting; Cuff Location : Left Arm; Cuff Size: Standard 03-26-2015 16:00-0400 BSA (Body Surface Area) 2.07 m2 Claudine Barneysimone [facility] Internal Medicine Work Phone: 03-26-2015 16:00-0400 Height 172.72 cm Claudine Rose [facility] Internal Medicine Work Phone: 03-26-2015 16:00-0400 Pulse (Heart Rate) 72 /min Claudine Flsimone [facility] Internal Medicine Work Phone: Comment on above: Pattern: Regular 03-26-2015 16:00-0400 Pulse Oximetry 96 % Breanna Castañeda [facility] Internal Medicine Work Phone: Comment on above: Room air 03-26-2015 16:00-0400 Respiratory Rate 16 /min Claudine Rose [facility] Internal Medicine Work Phone: Comment on above: Pattern: Unlabored 03-26-2015 16:00-0400 SaO2% (BldA) [Mass fraction] 96 % Claudine Rose [facility]; [facility] Work Phone: 03-26-2015 16:00-0400 Weight 92.99 kg Breanna Castañeda [facility] Internal Medicine Work Phone: 03-16-2014 11:56-0400 [...] 03-16-2014 11:56-0400 Pulse Oximetry 98 % Breanna Castañeda [facility] Work Phone: Comment on above: Room air 03-16-2014 11:56-0400 Respiratory Rate 18 /min Elana Gupta RN [facility] Work Phone: Comment on above: Pattern: Unlabored 03-16-2014 11:56-0400 SaO2% (BldA) [Mass fraction] 98 % Elana Gupta RN [facility]; [facility] Work Phone: 03-16-2014 11:56-0400 Weight 89.13 kg Breanna Garry [facility] Work Phone: 12-13-2013 13:02-0400 [...] air 12-13-2013 13:02-0400 Respiratory Rate 17 /min Jennifer Anthony KIANNA [facility] Work Phone: 12-13-2013 13:02-0400 SaO2% (BldA) [Mass fraction] 97 % Jennifer Zarcodiann HUTCHISON [facility]; [facility] Work Phone: 12-13-2013 13:02-0400 Weight 94.92 kg Breanna Castañeda [facility] Work Phone: 11-29-2013 12:59-0400 BMI (Body Mass Index) 31.82 kg/m2 Jennifer Anthony KIANNA [facility] Work Phone: 11-29-2013 12:59-0400 Body Temperature 99 [degF] Jennifer Anthony LPN [facility] [...] 12:59-0400 Pulse Oximetry 96 % Breanna Castañeda [facility] Work Phone: Comment on above: Room air 11-29-2013 12:59-0400 Respiratory Rate 18 /min Jennifer Anthony LPN [facility] Work Phone: 11-29-2013 12:59-0400 SaO2% (BldA) [Mass fraction] 96 % Jennifer Anthony LPN [facility]; [facility] Work Phone: 11-29-2013 12:59-0400 Weight 94.92 kg Breanna Castañeda [facility] Internal Medicine Work Phone: 11-07-2013 13:54-0400 [...] 13:54-0400 Pulse Oximetry 97 % Breanna Castañeda [facility] Medicine Work Phone: Comment on above: Room air 11-07-2013 13:54-0400 Respiratory Rate 15 /min Jennifer Anthony LPN [facility] Work Phone: 11-07-2013 13:54-0400 SaO2% (BldA) [Mass fraction] 97 % Jennifer Anthony LPN [facility]; [facility] Work Phone: 11-07-2013 13:54-0400 Weight 92.99 kg Breanna Castañeda [facility] Medicine Work Phone: 04-21-2013 14:42-0500 BMI (Body Mass Index) 31.17 kg/m2 PANFILO Broussard LPN [facility] Work Phone: 04-21-2013 14:42-0500 Body Temperature 98.2 [degF] PANFILO Broussard LPN [facility] Internal Medicine Work Phone: Comment on above: Method: Oral 04-21-2013 14:42-0500 Body weight 92.99 kg PANFILO Broussard LPN [facility] Internal Medicine Work Phone: 04-21-2013 14:42-0500 BP Diastolic 82 mm[Hg] PANFILO Broussard CRANK HAND [facility] Internal Medicine Work Phone: Comment on above: Patient Position: Sitting; Cuff Location : Left Arm; Cuff Size: Standard 04-21-2013 14:42-0500 BP Systolic 126 mm[Hg] PANFILO Broussard LPN [facility] Internal Medicine Work Phone: Comment on above: Patient Position: Sitting; Cuff Location : Left Arm; Cuff Size: Standard 04-21-2013 14:42-0500 BSA (Body Surface Area) 2.07 m2 PANFILO Broussard LPN [facility] Internal Medicine Work Phone: 04-21-2013 14:42-0500 Height 172.72 cm PANFILO Broussard [employer] [facility] Internal Medicine Work Phone: 04-21-2013 14:42-0500 Pulse (Heart Rate) 78 /min PANFILO Broussard [employer] [facility] Internal Medicine Work Phone: Comment on above: Pattern: Regular 04-21-2013 14:42-0500 Respiratory Rate 18 /min PANFILO Broussard LPN [facility] Internal Medicine Work Phone: Comment on above: Pattern: Unlabored 04-21-2013 14:42-0500 Weight 92.99 kg Breanna Castañeda [facility] Internal Medicine Work Phone: 02-17-2013 09:46-0400 BMI (Body Mass Index) 31.17 kg/m2 PANFILO Broussard [facility] Internal Medicine Work Phone: Comment on above: patient had coffe approx. 45 minutes ago along with a very hot shower 02-17-2013 09:46-0400 Body Temperature 99 [degF] PANFILO Broussard [facility] Internal Medicine Work Phone: Comment on above: Method: Oral patient had coffe ap prox. 45 minutes ago along with a very hot shower 02-17-2013 09:46-0400 Body weight 92.99 kg PANFILO Bobo [facility] Internal Medicine Work Phone: Comment on above: patient had coffe approx. 45 minutes ago along with a very hot shower 02-17-2013 09:46-0400 BP Diastolic 84 mm[Hg] PANFILO Bobo [facility] Internal Medicine Work Phone: Comment on above: Patient Position: Sitting; Cuff Location : Left Arm; Cuff Size: Standard patient had coffe ap prox. 45 minutes ago along with a very hot shower 02-17-2013 09:46-0400 BP Systolic 124 mm[Hg] PANFILO Bobo [facility] Internal Medicine Work Phone: Comment on above: Patient Position: Sitting; Cuff Location : Left Arm; Cuff Size: Standard patient had coffe ap prox. 45 minutes ago along with a very hot shower 02-17-2013 09:46-0400 BSA (Body Surface Area) 2.07 m2 PANFILO Broussard [facility] Internal Medicine Work Phone: Comment on above: patient had coffe approx. 45 minutes ago along with a very hot shower 02-17-2013 09:46-0400 Height 172.72 cm PANFILO Broussard [facility] Internal Medicine Work Phone: Comment on above: patient had coffe approx. 45 minutes ago along with a very hot shower 02-17-2013 09:46-0400 Pulse (Heart Rate) 82 /min PANFILO Broussard [facility] Internal Medicine Work Phone: Comment on above: Pattern: Regular patient had coffe ap prox. 45 minutes ago along with a very hot shower 02-17-2013 09:46-0400 Respiratory Rate 20 /min PANFILO Broussard [facility] Internal Medicine Work Phone: Comment on above: Pattern: Unlabored patient had coffe ap prox. 45 minutes ago along with a very hot shower 02-17-2013 09:46-0400 Weight 92.99 kg Breanna Castañeda [facility] Internal Medicine Work Phone: Comment on above: patient had coffe approx. 45 minutes ago along with a very hot shower 01-14-2013 09:41-0400 BMI (Body Mass Index) 29.8 kg/m2 PANFILO Broussard LPN [facility] Internal Medicine Work Phone: 01-14-2013 09:41-0400 Body Temperature 97.6 [degF] PANFILO Broussard LPN [facility] Internal Medicine Work Phone: Comment on above: Method: Oral 01-14-2013 09:41-0400 Body weight 88.91 kg PANFILO Broussard LPN [facility] Internal Medicine Work Phone: 01-14-2013 09:41-0400 BP Diastolic 84 mm[Hg] PANFILO Broussard LPN [facility] Internal Medicine Work Phone: Comment on above: Patient Position: Sitting; Cuff Location : Left Arm; Cuff Size: Standard 01-14-2013 09:41-0400 BP Systolic 124 mm[Hg] PANFILO Broussard LPN [facility] Internal Medicine Work Phone: Comment on above: Patient Position: Sitting; Cuff Location : Left Arm; Cuff Size: Standard 01-14-2013 09:41-0400 BSA (Body Surface Area) 2.03 m2 PANFILO Broussard LPN [facility] Internal Medicine Work Phone: 01-14-2013 09:41-0400 Height 172.72 cm PANFILO Broussard LPN [facility] Medicine Work Phone: 01-14-2013 09:41-0400 Pulse (Heart Rate) 86 /min PANFILO Broussard CR[employer] [facility] Internal Medicine Work Phone: Comment on above: Pattern: Regular 01-14-2013 09:41-0400 Respiratory Rate 18 /min PANFILO Broussard LPN [facility] Internal Medicine Work Phone: Comment on above: Pattern: Unlabored 01-14-2013 09:41-0400 Weight 88.91 kg Breanna Castañeda [facility] Internal Medicine Work Phone: 11-15-2012 14:19-0400 BMI (Body Mass Index) 29.19 kg/m2 PANFILO Broussard LPN [facility] Internal Medicine Work Phone: 11-15-2012 14:19-0400 Body Temperature 97.8 [degF] PANFILO Broussard LPN [facility] Work Phone: Comment on above: Method: Oral 11-15-2012 14:19-0400 Body weight 87.09 kg PANFILO Broussard LPN [facility] Medicine Work Phone: 11-15-2012 14:19-0400 BP Diastolic 100 mm[Hg] PANFILO Broussard LPN [facility] Internal Medicine Work Phone: Comment on above: Patient Position: Sitting; Cuff Location : Left Arm; Cuff Size: Standard 11-15-2012 14:19-0400 BP Systolic 144 mm[Hg] PANFILO Broussard LPN [facility] Internal Medicine Work Phone: Comment on above: Patient Position: Sitting; Cuff Location : Left Arm; Cuff Size: Standard 11-15-2012 14:19-0400 BSA (Body Surface Area) 2.01 m2 PANFILO Broussard LPN [facility] Internal Medicine Work Phone: 11-15-2012 14:19-0400 Height 172.72 cm PANFILO Broussard LPN [facility] Internal Medicine Work Phone: 11-15-2012 14:19-0400 Pulse (Heart Rate) 76 /min PANFILO Broussard LPN [facility] Internal Medicine Work Phone: Comment on above: Pattern: Regular 11-15-2012 14:19-0400 Respiratory Rate 20 /min PANFILO Broussard LPN [facility] Internal Medicine Work Phone: Comment on above: Pattern: Unlabored 11-15-2012 14:19-0400 Weight 87.09 kg Breanna Castañeda [facility] Internal Medicine Work Phone: 10-21-2012 08:49-0400 BMI (Body Mass Index) 29.35 kg/m2 PANFILO Broussard LPN [facility] Internal Medicine Work Phone: 10-21-2012 08:49-0400 Body Temperature 98.1 [degF] PANFILO Broussard LPN [facility] Internal Medicine Work Phone: Comment on above: Method: Oral 10-21-2012 08:49-0400 Body weight 87.54 kg PANFILO Broussard LPN [facility] Internal Medicine Work Phone: 10-21-2012 08:49-0400 BP Diastolic 84 mm[Hg] [email or web address] Work Phone: Comment on above: Patient Position: Sitting; Cuff Location : Left Arm; Cuff Size: Standard 10-21-2012 08:49-0400 BP Systolic 134 mm[Hg] PANFILO Broussard [facility] Internal Medicine Work Phone: Comment on above: Patient Position: Sitting; Cuff Location : Left Arm; Cuff Size: Standard 10-21-2012 08:49-0400 BSA (Body Surface Area) 2.01 m2 PANFILO Broussard [facility] Internal Medicine Work Phone: 10-21-2012 08:49-0400 Height 172.72 cm PANFILO Broussard [facility] Internal Medicine Work Phone: 10-21-2012 08:49-0400 Pulse (Heart Rate) 72 /min PANFILO Broussard [facility] Internal Medicine Work Phone: Comment on above: Pattern: Regular 10-21-2012 08:49-0400 Respiratory Rate 20 /min PANFILO Broussard [facility] Internal Medicine Work Phone: Comment on above: Pattern: Unlabored 10-21-2012 08:49-0400 Weight 87.54 kg Breanna Castañeda [facility] Internal Medicine Work Phone: 07-22-2012 08:19-0500 BMI (Body Mass Index) 29.8 kg/m2 PANFILO Broussard [facility] Internal Medicine Work Phone: 07-22-2012 08:19-0500 Body Temperature 97.6 [degF] PANFILO Broussard [facility] Internal Medicine Work Phone: Comment on above: Method: Oral 07-22-2012 08:19-0500 Body weight 88.91 kg PANFILO Broussard [facility] Internal Medicine Work Phone: 07-22-2012 08:19-0500 BP Diastolic 80 mm[Hg] PANFILO Broussard [facility] Internal Medicine Work Phone: Comment on above: Patient Position: Sitting; Cuff Location : Left Arm; Cuff Size: Standard 07-22-2012 08:19-0500 BP Systolic 122 mm[Hg] PANFILO Broussard LPN [facility] Internal Medicine Work Phone: Comment on above: Patient Position: Sitting; Cuff Location : Left Arm; Cuff Size: Standard 07-22-2012 08:19-0500 BSA (Body Surface Area) 2.03 m2 PANFILO Broussard LPN [facility] Internal Medicine Work Phone: 07-22-2012 08:19-0500 Height 172.72 cm PANFILO Broussard LPN [facility] Internal Medicine Work Phone: 07-22-2012 08:19-0500 Pulse (Heart Rate) 76 /min [email or web address] Internal Medicine Work Phone: Comment on above: Pattern: Regular 07-22-2012 08:19-0500 Respiratory Rate 22 /min PANFILO Broussard LPN [facility] Internal Medicine Work Phone: Comment on above: Pattern: Unlabored 07-22-2012 08:19-0500 Weight 88.91 kg Breanna Castañeda [facility] Internal Medicine Work Phone: 03-29-2012 14:32-0400 BMI (Body Mass Index) 30.11 kg/m2 PANFILO Broussard [facility] Internal Medicine Work Phone: 03-29-2012 14:32-0400 Body Temperature 97.8 [degF] PANFILO Broussard [facility] Internal Medicine Work Phone: Comment on above: Method: Oral 03-29-2012 14:32-0400 Body weight 89.81 kg PANFILO Broussard [facility] Internal Medicine Work Phone: 03-29-2012 14:32-0400 BP Diastolic 80 mm[Hg] PANFILO Broussard [facility] Internal Medicine Work Phone: Comment on above: Patient Position: Sitting; Cuff Location : Left Arm; Cuff Size: Standard 03-29-2012 14:32-0400 BP Systolic 120 mm[Hg] PANFILO Broussard [facility] Internal Medicine Work Phone: Comment on above: Patient Position: Sitting; Cuff Location : Left Arm; Cuff Size: Standard 03-29-2012 14:32-0400 BSA (Body Surface Area) 2.04 m2 PANFILO Broussard [employer] [facility] Work Phone: 03-29-2012 14:32-0400 Height 172.72 cm PANFILO Broussard LPN [facility] Internal Medicine Work Phone: 03-29-2012 14:32-0400 Pulse (Heart Rate) 74 /min PANFILO Broussard LPN [facility] Internal Medicine Work Phone: Comment on above: Pattern: Regular 03-29-2012 14:32-0400 Respiratory Rate 20 /min PANFILO Broussard LPN [facility] Work Phone: Comment on above: Pattern: Unlabored 03-29-2012 14:32-0400 Weight 89.81 kg Breanna Castañeda [facility] Internal Medicine Work Phone: 02-11-2012 08:28-0400 BMI (Body Mass Index) 30.56 kg/m2 Jennifer Anthony LPN [facility] Work Phone: 02-11-2012 08:28-0400 Body Temperature 98.4 [degF] Jennifer Anthony LPN [facility] Work Phone: Comment on above: Method: Oral 02-11-2012 08:28-0400 Body weight 91.17 kg Jennifer Anthony LPN [facility] Work Phone: 02-11-2012 08:28-0400 BP Diastolic 84 mm[Hg] [email or web address] Work Phone: Comment on above: Patient Position: Sitting; Cuff Location : Left Arm; Cuff Size: Standard 02-11-2012 08:28-0400 BP Systolic 142 mm[Hg] Jennifer Anthony LPN [facility] Work Phone: Comment on above: Patient Position: Sitting; Cuff Location : Left Arm; Cuff Size: Standard 02-11-2012 08:28-0400 BSA (Body Surface Area) 2.05 m2 Jennifer Anthony LPN [facility] Work Phone: 02-11-2012 08:28-0400 Height 172.72 cm Jennifer Anthony CRANK HAND [facility] Work Phone: 02-11-2012 08:28-0400 Pulse (Heart Rate) 78 /min Jennifer Anthony LPN [facility] Work Phone: Comment on above: Pattern: Regular 02-11-2012 08:28-0400 Pulse Oximetry 97 % Breanna Castañeda [facility] Work Phone: Comment on above: Room air 02-11-2012 08:28-0400 Respiratory Rate 18 /min Jennifer Anthony LPN [facility] Work Phone: Comment on above: Pattern: Unlabored 02-11-2012 08:28-0400 SaO2% (BldA) [Mass fraction] 97 % Jennifer Anthony LPN [facility]; [facility] Work Phone: 02-11-2012 08:28-0400 Weight 91.17 kg Breanna Castañeda [facility] Work Phone: 12-29-2011 14:59-0400 BMI (Body Mass Index) 30.56 kg/m2 Cyn Springer RN [facility] Internal Medicine Work Phone: 12-29-2011 14:59-0400 Body Temperature 97.8 [degF] Cyn Springer RN [facility] Work Phone: Comment on above: Method: Temporal 12-29-2011 14:59-0400 Body weight 91.17 kg Cyn Springer RN [facility] Work Phone: 12-29-2011 14:59-0400 BP Diastolic 78 mm[Hg] Cyn Springer RN [facility] Work Phone: Comment on above: Patient Position: Sitting; Cuff Location : Left Arm; Cuff Size: Standard 12-29-2011 14:59-0400 BP Systolic 126 mm[Hg] Cyn Springer RN [facility] Work Phone: Comment on above: Patient Position: Sitting; Cuff Location : Left Arm; Cuff Size: Standard 12-29-2011 14:59-0400 BSA (Body Surface Area) 2.05 m2 Cyn Springer RN [facility] Work Phone: 12-29-2011 14:59-0400 Height [...] Mass Index) 32.69 kg/m2 Cyn Springer RN [facility] Internal Medicine Work Phone: 05-12-2011 09:53-0500 Body [...] 05-12-2011 09:53-0500 Weight 97.52 kg Breanna Castañeda [facility] Work Phone: 01-03-2011 10:00-0400 BMI (Body Mass Index) 33.3 kg/m2 PANFILO Broussard KIANNA [facility] Work Phone: 01-03-2011 10:00-0400 Body Temperature 98 [degF] PANFILO Broussard KIANNA [facility] Work Phone: Comment on above: Method: Oral 01-03-2011 10:00-0400 Body weight 99.34 kg PANFILO Broussard KIANNA [facility] Work Phone: 01-03-2011 10:00-0400 BP Diastolic 84 mm[Hg] PANFILO Bobo HUTCHISON [facility] Work Phone: Comment on above: Patient Position: Sitting; Cuff Location : Left Arm; Cuff Size: Standard 01-03-2011 10:00-0400 BP Systolic 130 mm[Hg] PANFILO Bobo HUTCHISON [facility] Work Phone: Comment on above: Patient Position: Sitting; Cuff Location : Left Arm; Cuff Size: Standard 01-03-2011 10:00-0400 BSA (Body Surface Area) 2.12 m2 PANFILO Bobo HUTCHISON [facility] Work Phone: 01-03-2011 10:00-0400 Height 172.72 cm PANFILO Bobo HUTCHISON [facility] Work Phone: 01-03-2011 10:00-0400 Pulse (Heart Rate) 70 /min PANFILO Bobo HUTCHISON [facility] Work Phone: Comment on above: Pattern: Regular 01-03-2011 10:00-0400 Respiratory Rate 20 /min PANFILO Broussard KIANNA [facility] Work Phone: Comment on above: Pattern: Unlabored 01-03-2011 10:00-0400 Weight 99.34 kg Breanna Castañeda [facility] Work Phone: 09-26-2010 08:44-0400 BMI (Body Mass Index) 32.39 kg/m2 PANFILO Broussard LPN [facility] Work Phone: 09-26-2010 08:44-0400 Body Temperature 98.2 [degF] PANFILO Broussard LPN [facility] Work Phone: Comment on above: Method: Oral 09-26-2010 08:44-0400 Body weight 96.62 kg PANFILO Broussard LPN [facility] Work Phone: 09-26-2010 08:44-0400 BP Diastolic 94 mm[Hg] PANFILO Broussard LPN [facility] Work Phone: Comment on above: Patient Position: Sitting; Cuff Location : Left Arm; Cuff Size: Standard 09-26-2010 08:44-0400 BP Systolic 138 mm[Hg] PANFILO Broussard LPN [facility] Work Phone: Comment on above: Patient Position: Sitting; Cuff Location : Left Arm; Cuff Size: Standard 09-26-2010 08:44-0400 BSA (Body Surface Area) 2.1 m2 PANFILO Broussard LPN [facility] Work Phone: 09-26-2010 08:44-0400 Height 172.72 cm PANFILO Broussard LPN [facility] Work Phone: 09-26-2010 08:44-0400 Pulse (Heart Rate) 72 /min PANFILO Broussard LPN [facility] Work Phone: Comment on above: Pattern: Regular 09-26-2010 08:44-0400 Respiratory Rate 18 /min PANFILO Broussard LPN [facility] Work Phone: Comment on above: Pattern: Unlabored 09-26-2010 08:44-0400 Weight 96.62 kg Breanna Castañeda [facility] Work Phone: 08-12-2010 08:39-0500 BMI (Body Mass Index) 32.39 kg/m2 PANFILO Broussard LPN [facility] Work Phone: 08-12-2010 08:39-0500 Body Temperature 98.2 [degF] PANFILO Broussard LPN [facility] Work Phone: Comment on above: Method: Oral 08-12-2010 08:39-0500 Body weight 96.62 kg PANFILO Broussard LPN [facility] Work Phone: 08-12-2010 08:39-0500 BP Diastolic 90 mm[Hg] PANFILO Broussard LPN [facility] Work Phone: Comment on above: Patient Position: Sitting; Cuff Location : Left Arm; Cuff Size: Standard 08-12-2010 08:39-0500 BP Systolic 126 mm[Hg] PANFILO Broussard LPN [facility] Work Phone: Comment on above: Patient Position: Sitting; Cuff Location : Left Arm; Cuff Size: Standard 08-12-2010 08:39-0500 BSA (Body Surface Area) 2.1 m2 PANFILO Broussard LPN [facility] Work Phone: 08-12-2010 08:39-0500 Height 172.72 cm [email or web address] Work Phone: 08-12-2010 08:39-0500 Pulse (Heart Rate) 76 /min PANFILO Broussard [facility] Internal [facility] Work Phone: Comment on above: Pattern: Regular 08-12-2010 08:39-0500 Respiratory Rate 20 /min PANFILO Broussard LPN [facility] Work Phone: Comment on above: Pattern: Unlabored 08-12-2010 08:39-0500 Weight 96.62 kg Breanna Castañeda [facility] Work Phone: 07-11-2010 08:26-0500 Body Temperature 97.5 [degF] Jennifer Anthony [facility] Work Phone: Comment on above: Method: Oral 07-11-2010 08:26-0500 Body weight 94.8 kg Jennifer Anthony [facility] Work Phone: 07-11-2010 08:26-0500 BP Diastolic 82 mm[Hg] Jennifer Anthony [facility] Work Phone: [...] 08:26-0500 Pulse Oximetry 96 % Breanna Castañeda [facility] Work Phone: Comment on above: Room air 07-11-2010 08:26-0500 Respiratory Rate 18 /min Jennifer Anthony LPN [facility] Work Phone: Comment on above: Pattern: Unlabored 07-11-2010 08:26-0500 SaO2% (BldA) [Mass fraction] 96 % Jennifer Anthony KIANNA [facility]; [facility] Work Phone: 07-11-2010 08:26-0500 Weight 94.8 kg Breanna Castañeda [facility] Work Phone: 07-11-2009 08:59-0500 Body Temperature 97.9 [degF] Jennifer Anthony LPN [facility] Work Phone: Comment on above: Method: Oral 07-11-2009 08:59-0500 Body weight 94.8 kg Jennifer Anthoyn LPN [facility] Work Phone: 07-11-2009 08:59-0500 BP Diastolic 86 mm[Hg] Jennifer Antohny LPN [facility] Work Phone: Comment on above: Patient Position: Sitting; Cuff Location : Left Arm; Cuff Size: Standard 07-11-2009 08:59-0500 BP Systolic 138 mm[Hg] Jennifer Anthony LPN [facility] Work Phone: Comment on above: Patient Position: Sitting; Cuff Location : Left Arm; Cuff Size: Standard 07-11-2009 08:59-0500 Pulse (Heart Rate) 84 /min Jennifer Anthony LPN [facility] Work Phone: Comment on above: Pattern: Regular 07-11-2009 08:59-0500 Pulse Oximetry 96 % Breanna Castañeda [facility] Work Phone: Comment on above: Room air 07-11-2009 08:59-0500 Respiratory Rate 18 /min Jennifer Anthony KIANNA [facility] Work Phone: Comment on above: Pattern: Unlabored 07-11-2009 08:59-0500 SaO2% (BldA) [Mass fraction] 96 % Jennifer Anthony KIANNA [facility]; [facility] Work Phone: 07-11-2009 08:59-0500 Weight 94.8 kg Breanna Castañeda [facility] Work Phone: 11-30-2008 07:57-0400 [...] 11-30-2008 07:57-0400 Head Circumference 0 cm Breanna Castañeda [facility] Work Phone: 11-30-2008 07:57-0400 Head Occipital-frontal circumference 0 cm PANFILO Bobo HUTCHISON [facility]; [facility] Work Phone: 11-30-2008 07:57-0400 Height 0 cm PANFILO Broussard KIANNA [facility] Work Phone: 11-30-2008 07:57-0400 Pulse (Heart Rate) 78 /min PANFILO Broussard KIANNA [facility] Work Phone: Comment on above: Pattern: Regular 11-30-2008 07:57-0400 Respiratory Rate 16 /min PANFILO Broussard LPN [facility] Work Phone: Comment on above: Pattern: Unlabored 11-30-2008 07:57-0400 Weight 94.8 kg Breanna Castañeda [facility] Work Phone: 09-13-2008 11:42-0400 Body [...] 11:42-0400 Head Circumference 0 cm Breanna Castañeda [facility] Work Phone: 09-13-2008 11:42-0400 Head [...] 09-13-2008 11:42-0400 Weight 93.9 kg Breanna Castañeda [facility] Work Phone: 08-23-2008 10:32-0400 [...] 10:32-0400 Head Circumference 0 cm Breanna Castañeda [facility] Work Phone: 08-23-2008 10:32-0400 Head Occipital-frontal circumference 0 cm PANFILO Broussard CRANK HAND [facility] Work Phone: 08-23-2008 10:32-0400 Height 0 cm PANFILO Broussard CRANK HAND [facility] Work Phone: 08-23-2008 10:32-0400 Pulse (Heart Rate) 78 /min PANFILO Broussard LPN [facility] Work Phone: Comment on above: Pattern: Regular 08-23-2008 10:32-0400 Pulse Oximetry 95 % Breanna Henrysonny [facility] Work Phone: Comment on above: Room air 08-23-2008 10:32-0400 Respiratory Rate 18 /min PANFILO Broussard LPN [facility] Work Phone: Comment on above: Pattern: Unlabored 08-23-2008 10:32-0400 SaO2% (BldA) [Mass fraction] 95 % PANFILO Broussard CRANK HAND [facility]; [facility] Work Phone: 08-23-2008 10:32-0400 Weight 93.9 kg Breanna Castañeda [facility] Work Phone: 03-20-2008 08:30-0400 Body Temperature 98 [degF] Jennifer Anthony [facility] Work Phone: Comment on above: Method: Oral 03-20-2008 08:30-0400 Body weight 87.11 kg Jennifer Anthony [facility] Work Phone: 03-20-2008 08:30-0400 [...] 08:30-0400 Head Circumference 0 cm Breanna Castañeda [facility] Work Phone: 03-20-2008 08:30-0400 Head Occipital-frontal circumference 0 cm Jennifer Anthony LPN [facility]; [facility] Work Phone: 03-20-2008 08:30-0400 Height 0 cm Jennifer Anthony LPN [facility] Work Phone: 03-20-2008 08:30-0400 Pulse (Heart Rate) 66 /min Jennifer Anthony LPN [facility] Work Phone: Comment on above: Pattern: Regular 03-20-2008 08:30-0400 Pulse Oximetry 95 % Breanna Castañeda [facility] Work Phone: Comment on above: Room air 03-20-2008 08:30-0400 Respiratory Rate 19 /min Jennifer Anthony LPN [facility] Work Phone: Comment on above: Pattern: Unlabored 03-20-2008 08:30-0400 SaO2% (BldA) [Mass fraction] 95 % Jennifer Anthony LPN [facility]; [facility] Work Phone: 03-20-2008 08:30-0400 Weight 87.11 kg Breanna Castañeda [facility] Work Phone: 12-27-2007 13:50-0400 Body weight 87.11 kg Jennifer Anthony LPN [facility] Work Phone: 12-27-2007 13:50-0400 BP Diastolic 78 mm[Hg] Jennifer Anthony LPN [facility] Work Phone: Comment on above: Patient Position: Sitting; Cuff Location : Left Arm; Cuff Size: Standard 12-27-2007 13:50-0400 BP Systolic 120 mm[Hg] Jennifer Anthony LPN [facility] Work Phone: Comment on above: Patient Position: Sitting; Cuff Location : Left Arm; Cuff Size: Standard 12-27-2007 13:50-0400 Head Circumference 0 cm Breanna Castañeda [facility] Work Phone: 12-27-2007 13:50-0400 Head Occipital-frontal circumference 0 cm Jennifer Anthony CRANK HAND [facility]; [facility] Work Phone: 12-27-2007 13:50-0400 Height 0 cm Jennifer Anthony CRANK HAND [facility] Work Phone: 12-27-2007 13:50-0400 Pulse (Heart Rate) 88 /min Jennifer Anthony LPN [facility] Work Phone: Comment on above: Pattern: Regular 12-27-2007 13:50-0400 Pulse Oximetry 96 % Breanna Henrysonny [facility] Work Phone: Comment on above: Room air 12-27-2007 13:50-0400 Respiratory Rate 16 /min Jennifer Anthony CRANK HAND [facility] Work Phone: Comment on above: Pattern: Unlabored 12-27-2007 13:50-0400 SaO2% (BldA) [Mass fraction] 96 % Jennifer Anthony CRANK HAND [facility]; [facility] Work Phone: 12-27-2007 13:50-0400 Weight 87.11 kg Breanna Castañeda [facility] Work Phone: 12-13-2007 15:38-0400 Body Temperature 98.2 [degF] PANFILO Broussard [facility] Work Phone: Comment on above: Method: Oral 12-13-2007 15:38-0400 Body weight 87.11 kg PANFILO Broussard [facility] Work Phone: 12-13-2007 15:38-0400 BP Diastolic 76 mm[Hg] PANFILO Broussard LPN [facility] Work Phone: Comment on above: Patient Position: Sitting; Cuff Location : Left Arm; Cuff Size: Standard 12-13-2007 15:38-0400 BP Systolic 118 mm[Hg] [email or web address] Work Phone: Comment on above: Patient Position: Sitting; Cuff Location : Left Arm; Cuff Size: Standard 12-13-2007 15:38-0400 Head Circumference 0 cm Breanna Henrysonny [facility] Work Phone: 12-13-2007 15:38-0400 Head Occipital-frontal circumference 0 cm PANFILO Broussard LPN [facility]; [facility] Work Phone: 12-13-2007 15:38-0400 Height 0 cm PANFILO Broussard [facility] Work Phone: 12-13-2007 15:38-0400 Pulse (Heart Rate) 70 /min PANFILO Broussard LPN [facility] Work Phone: Comment on above: Pattern: Regular 12-13-2007 15:38-0400 Respiratory Rate 16 /min PANFILO Broussard LPN [facility] Work Phone: Comment on above: Pattern: Unlabored 12-13-2007 15:38-0400 [facility] 87.11 [facility] Work Phone: 11-17-2007 08:11-0400 Body Temperature 98.4 [degF] Angela [facility] Work Phone: Comment on above: Method: Oral 11-17-2007 08:11-0400 Body weight 88.45 kg Angela [facility] Work Phone: 11-17-2007 08:11-0400 BP Diastolic 88 mm[Hg] Angela [facility] Work Phone: Comment on above: Patient Position: Sitting; Cuff Location : Left Arm; Cuff Size: Standard 11-17-2007 08:11-0400 BP Systolic 142 mm[Hg] [facility] Work Phone: Comment on above: Patient Position: Sitting; Cuff Location : Left Arm; Cuff Size: Standard 11-17-2007 08:110400 Head Circumference [address] [facility] Work Phone: 11-17-2007 08:11-0400 Head Occipital-frontal circumference 0 cm [facility]; [facility] Work Phone: 11-17-2007 08:11-0400 Height 0 cm [facility] Work Phone: 11-17-2007 08:11-0400 Pulse (Heart Rate) 76 /min [facility] Work Phone: Comment on above: Pattern: Regular 11-17-2007 08:11-0400 Pulse Oximetry 96 % Breanna Castañeda [facility] Work Phone: Comment on above: Room air 11-17-2007 08:11-0400 Respiratory Rate 18 /min [facility] Work Phone: Comment on above: Pattern: Unlabored 11-17-2007 08:11-0400 SaO2% (BldA) [Mass fraction] 96 % [facility]; [facility] Work Phone: 11-17-2007 08:11-0400 Weight 88.45 kg Breanna Castañeda [facility] Work Phone: 10-21-2007 08:05-0400 Body Temperature 98.9 [degF] [facility] Work Phone: Comment on above: Method: Oral 10-21-2007 08:05-0400 Body weight 88.45 kg [facility] Work Phone: 10-21-2007 08:05-0400 BP Diastolic 88 mm[Hg] [facility] Work Phone: Comment on above: Patient Position: Sitting; Cuff Location : Left Arm; Cuff Size: Large 10-21-2007 08:05-0400 BP Systolic 140 mm[Hg] [facility] Work Phone: Comment on above: Patient Position: Sitting; Cuff Location : Left Arm; Cuff Size: Large 10-21-2007 08:05-0400 Head Circumference 0 cm [facility] Work Phone: 10-21-2007 08:05-0400 Head Occipital-frontal circumference 0 cm [facility]; [facility] Work Phone: 10-21-2007 08:05-0400 Height 0 cm [facility] Work Phone: 10-21-2007 08:05-0400 Pulse (Heart Rate) 76 /min [facility] Work Phone: Comment on above: Pattern: Regular 10-21-2007 08:05-0400 Respiratory Rate 18 /min [facility] Work Phone: Comment on above: Pattern: Unlabored 10-21-2007 08:05-0400 Weight 88.45 kg [facility] Work Phone: 09-07-2007 15:25-0400 Body Temperature 98.2 [degF] PANFILO Broussard [facility] Work Phone: Comment on above: Method: Oral 09-07-2007 15:25-0400 Body weight 0 kg PANFILO Broussard [facility] Work Phone: 09-07-2007 15:25-0400 BP Diastolic 80 mm[Hg] PANFILO Broussard [facility] Work Phone: Comment on above: Patient Position: Sitting; Cuff Location : Left Arm; Cuff Size: Standard 09-07-2007 15:25-0400 BP Systolic 140 mm[Hg] PANFILO Broussard [facility] Work Phone: Comment on above: Patient Position: Sitting; Cuff Location : Left Arm; Cuff Size: Standard 09-07-2007 15:25-0400 Head Circumference 0 cm [facility] Work Phone: 09-07-2007 15:25-0400 Head Occipital-frontal circumference 0 cm PANFILO Broussard [facility]; [facility] [...] 09-07-2007 15:25-0400 Weight 0 kg Breanna Castañeda [facility] Work Phone: 08-10-2007 15:34-0500 [...] 15:34-0500 Head Circumference 0 cm Breanna Castañeda [facility] Work Phone: 08-10-2007 15:34-0500 [...] 15:34-0500 Pulse Oximetry 96 % Breanna Castañeda [facility] Work Phone: Comment on above: Room air 08-10-2007 15:34-0500 Respiratory Rate 18 /min PANFILO Broussard KIANNA [facility] Work Phone: Comment on above: Pattern: Unlabored 08-10-2007 15:34-0500 SaO2% (BldA) [Mass fraction] 96 % PANFILO Broussard KIANNA [facility]; [facility] Work Phone: 08-10-2007 15:34-0500 Weight 88.45 kg Breanna Castañeda [facility] Work Phone: 07-15-2007 09:18-0500 Body Temperature 98 [degF] Jennifer Anthony LPN [facility] Work Phone: Comment on above: Method: Oral 07-15-2007 09:18-0500 Body weight 89.36 kg Jennifer Raj HUTCHISON [facility] Work Phone: 07-15-2007 09:18-0500 BP Diastolic 80 mm[Hg] Jennifer Raj HUTCHISON [facility] Work Phone: Comment on above: Patient Position: Sitting; Cuff Location : Left Arm; Cuff Size: Standard 07-15-2007 09:18-0500 BP Systolic 122 mm[Hg] Jennifer Raj HUTCHISON [facility] Work Phone: Comment on above: Patient Position: Sitting; Cuff Location : Left Arm; Cuff Size: Standard 07-15-2007 09:18-0500 Head Circumference 0 cm Breanna Castañeda [facility] Work Phone: 07-15-2007 09:18-0500 Head Occipital-frontal circumference 0 cm Jennifer Raj HUTCHISON [facility]; [facility] Work Phone: 07-15-2007 09:18-0500 Height 0 cm Jennifer Anthony LPN [facility] Work Phone: 07-15-2007 09:18-0500 Pulse (Heart Rate) 74 /min Jennifer Anthony LPN [facility] Work Phone: Comment on above: Pattern: Regular 07-15-2007 09:18-0500 Pulse Oximetry 94 % Breanna Castañeda [facility] Work Phone: Comment on above: Room air 07-15-2007 09:18-0500 Respiratory Rate 18 /min Jennifer Anthony LPN [facility] Work Phone: Comment on above: Pattern: Unlabored 07-15-2007 09:18-0500 SaO2% (BldA) [Mass fraction] 94 % Jennifer Anthony LPN [facility]; [facility] Work Phone: 07-15-2007 09:18-0500 Weight 89.36 kg Breanna Castañeda [facility] Work Phone: 05-11-2007 15:13-0500 Body Temperature 98.8 [degF] PANFILO Broussard LPN [facility] Work Phone: Comment on above: Method: Oral 05-11-2007 15:13-0500 Body weight 89.36 kg PANFILO Broussard LPN [facility] Work Phone: 05-11-2007 15:13-0500 BP [...] 15:13-0500 Head Circumference 0 cm Breanna Castañeda [facility] Work Phone: 05-11-2007 15:13-0500 [...] 05-11-2007 15:13-0500 Weight 89.36 kg Breanna Castañeda [facility] Work Phone: 04-22-2007 08:15-0500 Body Temperature 98.8 [degF] PANFILO Broussard LPN [facility] Work Phone: Comment on above: Method: Oral 04-22-2007 08:15-0500 Body weight 0 kg PANFILO Broussard LPN [facility] Work Phone: 04-22-2007 08:15-0500 BP [...] 08:15-0500 Head Circumference 0 cm Breanna Castañeda [facility] Work Phone: 04-22-2007 08:15-0500 Head Occipital-frontal circumference 0 cm PANFILO Broussard LPN [facility]; [facility] Internal Medicine Work Phone: 04-22-2007 08:15-0500 Height 0 cm PANFILO Broussard LPN [facility] Work Phone: 04-22-2007 08:15-0500 Pulse (Heart Rate) 74 /min PANFILO Broussard LPN [facility] Work Phone: Comment on above: Pattern: Regular 04-22-2007 08:15-0500 Respiratory Rate 18 /min PANFILO Broussard LPN [facility] Work Phone: Comment on above: Pattern: Unlabored 04-22-2007 08:15-0500 Weight 0 kg Breanna Castañeda [facility] Internal Medicine Work Phone: 02-09-2007 15:46-0400 [...] 15:46-0400 Head Circumference 0 cm Breanna Castañeda [facility] Internal Medicine Work Phone: 02-09-2007 15:46-0400 [...] 02-09-2007 15:46-0400 Weight 0 kg Breanna Castañeda [facility] Internal Medicine Work Phone: 01-19-2007 11:18-0400 Body weight 87.09 kg Jennifer Anthony [facility] Work Phone: 01-19-2007 11:18-0400 BP Diastolic 76 mm[Hg] Jennifer Anthony CRANK HAND [facility] Work Phone: Comment on above: Patient Position: Sitting; Cuff Location : Left Arm; Cuff Size: Standard 01-19-2007 11:18-0400 BP Systolic 122 mm[Hg] Jennifer Anthony LPN [facility] Work Phone: Comment on above: Patient Position: Sitting; Cuff Location : Left Arm; Cuff Size: Standard 01-19-2007 11:18-0400 Head Circ[facility] Work Phone: 01-19-2007 11:18-0400 Head Occipital-frontal circumference 0 cm Jennifer Anthony CRANK HAND [facility]; [facility] Work Phone: 01-19-2007 11:18-0400 Height 0 cm Jennifer Anthony CR[employer] [facility] Work Phone: 01-19-2007 11:18-0400 Pulse (Heart Rate) 74 /min Jennifer Anthony LPN [facility] Work Phone: Comment on above: Pattern: Regular 01-19-2007 11:18-0400 Respiratory Rate 18 /min Jennifer Anthony LPN [facility] Work Phone: Comment on above: Pattern: Unlabored 01-19-2007 11:18-0400 Weight 87.09 kg Breanna Castañeda [facility] Internal Medicine Work Phone: 01-07-2007 11:52-0400 Body Temperature 97.7 [degF] PANFILO Broussard KIANNA [facility] Internal Medicine Work Phone: Comment on above: Method: Oral 01-07-2007 11:52-0400 Body weight 87.09 kg PANFILOTURNER Broussard LPN [facility] Internal Medicine Work Phone: 01-07-2007 11:52-0400 BP Diastolic 78 mm[Hg] PANFILOTURNER Broussard LPN [facility] Internal Medicine Work Phone: Comment on above: Patient Position: Sitting; Cuff Location : Left Arm; Cuff Size: Standard 01-07-2007 11:52-0400 BP Systolic 120 mm[Hg] PANFILO Broussard LPN [facility] Work Phone: Comment on above: Patient Position: Sitting; Cuff Location : Left Arm; Cuff Size: Standard 01-07-2007 11:52-0400 Head Circumference 0 cm Breanna Castañeda [facility] Internal Medicine Work Phone: 01-07-2007 11:52-0400 Head Occipital-frontal circumference 0 cm PANFILO Bobo KIANNA [facility]; [facility] Work Phone: 01-07-2007 11:52-0400 Height 0 cm PANFILO Broussard KIANNA [facility] Work Phone: 01-07-2007 11:52-0400 Pulse (Heart Rate) 74 /min PANFILO Broussard CR[employer] HAND [facility] Work Phone: Comment on above: Pattern: Regular 01-07-2007 11:52-0400 Respiratory Rate 20 /min PANFILO Broussard CRANK HAND [facility] Work Phone: Comment on above: Pattern: Unlabored 01-07-2007 11:52-0400 Weight 87.09 kg Breanna Castañeda [facility] Work Phone: 12-31-2006 11:51-0400 Body [...] 12-31-2006 11:51-0400 [facility] Work Phone: 12-31-2006 11:51-0400 Head [...] Pattern: Unlabored 12-31-2006 11:51-0400 Weight 87.09 kg Braenna Castañeda [facility] Work Phone: 12-16-2006 09:23-0400 Body Temperature 97.8 [degF] ANTHONY BANKS HEALTH EDUCATION DIRECTOR Work Phone: [facility] Work Phone: Comment on above: Method: Oral 12-16-2006 09:23-0400 Body weight 0 kg ANTHONY BANKS HEALTH EDUCATION DIRECTOR Work Phone: [facility] Work Phone: 12-16-2006 09:23-0400 BP Diastolic 92 mm[Hg] ANTHONY BANKS HEALTH EDUCATION DIRECTOR Work Phone: [facility] Work Phone: Comment on above: Patient Position: Sitting; Cuff Location : Undefined; Cuff Size: Undefined 12-16-2006 09:23-0400 BP Systolic 138 mm[Hg] ANTHONY BANKS HEALTH EDUCATION DIRECTOR Work Phone: [facility] Work Phone: Comment on above: Patient Position: Sitting; Cuff Location : Undefined; Cuff Size: Undefined 12-16-2006 09:23-0400 Head Circumference 0 cm Breanna Castañeda [facility] Work Phone: 12-16-2006 09:23-0400 Head Occipital-frontal circumference 0 cm ANTHONY BANKS HEALTH EDUCATION DIRECTOR Work Phone: [facility]; [facility] Work Phone: 12-16-2006 09:23-0400 Height 0 cm ANTHONY BANKS CNP Work Phone: [facility] Work Phone: 12-16-2006 09:23-0400 Pulse (Heart Rate) 80 /min ANTHONY BANKS HEALTH EDUCATION DIRECTOR Work Phone: [facility] Work Phone: [...] 11-16-2006 11:44-0400 Weight 0 kg Breanna Castañeda [facility] Work Phone: 10-05-2006 16:38-0400 Body Temperature 98.6 [degF] PANFILO Broussard LPN [facility] Work Phone: Comment on above: Method: Oral 10-05-2006 16:38-0400 Body weight 0 kg PANFILO Broussard LPN [...] 16:38-0400 Head Circumference 0 cm Breanna Castañeda [facility] Work Phone: 10-05-2006 16:38-0400 Head [...] 10-05-2006 16:38-0400 Weight 0 kg Breanna Castañeda [facility] Work Phone: 09-24-2006 08:25-0400 Body weight 0 kg Breanna Castañeda [facility] Work Phone: 09-24-2006 08:25-0400 BP Diastolic 84 mm[Hg] Breanna Castañeda [facility] Internal Medicine Work Phone: Comment on above: Patient Position: Sitting; Cuff Location : Left Arm; Cuff Size: Standard 09-24-2006 08:25-0400 BP Systolic 134 mm[Hg] Breanna Castañeda [facility] Internal Medicine Work Phone: Comment on above: Patient Position: Sitting; Cuff Location : Left Arm; Cuff Size: Standard 09-24-2006 08:25-0400 Head Circumference 0 cm Breanna Castañeda [facility] Work Phone: 09-24-2006 08:25-0400 Head Occipital-frontal circumference 0 cm Breanna Castañeda [facility] Work Phone: [facility]; [facility] Work Phone: 09-24-2006 08:25-0400 Height 0 cm Breanna Castañeda [facility] Internal Medicine Work Phone: 09-24-2006 08:25-0400 Pulse (Heart Rate) 60 /min Breanna Castañeda [facility] Internal Medicine Work Phone: Comment on above: Pattern: Regular 09-24-2006 08:25-0400 Respiratory Rate 16 /min Breanna Castañeda [facility] Internal Medicine Work Phone: Comment on above: Pattern: Unlabored 09-24-2006 08:25-0400 Weight [address] [facility] Work Phone: 08-13-2006 08:10-0500 Body [...] Standard 08-13-2006 08:10-0500 [facility] Work Phone: 08-13-2006 08:10-0500 Head [...] Pattern: Unlabored 08-13-2006 08:10-0500 Weight 0 kg [facility] Internal Medicine Work Phone: 07-30-2006 08:27-0500 Body [...] Standard 07-30-2006 08:27-0500 Head Circumference 0 [facility] Work Phone: 07-30-2006 08:27-0500 Head Occipital-frontal circumference 0 cm PANFILO Broussard LPN [facility]; [facility] Work Phone: 07-30-2006 08:27-0500 Height 0 cm PANFILO Broussard KIANNA [facility] Work Phone: 07-30-2006 08:27-0500 Pulse (Heart Rate) 70 /min PANFILO Bobo KIANNA [facility] Work Phone: Comment on above: Pattern: Regular 07-30-2006 08:27-0500 Pulse Oximetry 96 % Breanna Castañeda [facility] Medicine Work Phone: Comment on above: Room air 07-30-2006 08:27-0500 Respiratory Rate 20 /min PANFILO Broussard LPN [facility] Work Phone: Comment on above: Pattern: Unlabored 07-30-2006 08:27-0500 SaO2% (BldA) [Mass fraction] 96 % PANFILO Broussard LPN [facility]; [facility] Work Phone: 07-30-2006 08:27-0500 Weight 0 kg Breanna Castañeda [facility] Work Phone: 06-16-2006 08:18-0500 Body Temperature 99.1 [degF] Poppy Seals LPN [facility] Work Phone: Comment on above: Method: Undefined 06-16-2006 08:18-0500 Body weight 0 kg Poppy Seals LPN [facility] Internal Medicine Work Phone: 06-16-2006 08:18-0500 BP Diastolic 88 mm[Hg] Poppy Seals [facility] Work Phone: Comment on above: Patient Position: Sitting; Cuff Location : Left Arm; Cuff Size: Standard 06-16-2006 08:18-0500 BP Systolic 134 mm[Hg] Poppy Seals [facility] Internal Medicine Work Phone: Comment on above: Patient Position: Sitting; Cuff Location : Left Arm; Cuff Size: Standard 06-16-2006 08:18-0500 Head Circumference [facility] Work Phone: 06-16-2006 08:18-0500 Head Occipital-frontal circumference 0 cm Poppy Seals LPN [facility]; [facility] Work Phone: 06-16-2006 08:18-0500 Height 0 cm Poppy Seals LPN [facility] Work Phone: 06-16-2006 08:18-0500 Pulse (Heart Rate) 76 /min Poppy Seals LPN [facility] Medicine Work Phone: Comment on above: Pattern: Regular 06-16-2006 08:18-0500 Respiratory Rate 20 /min Poppy Seals LPN [facility] Work Phone: Comment on above: Pattern: Undefined 06-16-2006 08:18-0500 Weight 0 kg Breanna Castañeda [facility] Work Phone: Encounters Encounter Date Encounter Type Care Provider Facility Start: 04-12-2025 ambulatory Solange Cross Facility:[facility] Start: 04-12-2025 Evaluation and management of inpatient Padminicosta Barth Facility:[facility] Start: 04-11-2025 ambulatory Earl Fountain [facility] Start: 04-11-2025 End: 04-12-2025 Evaluation and management of inpatient Michael Vinaytucker Facility:[facility] Start: 04-10-2025 ambulatory Padmini Barth Facilit y:[facility] Start: 04-09-2025 ambulatory Earl Essie Facility:[facility] Start: 04-06-2025 End: 04-06-2025 Emergency department patient visit Khadijah Seymour Facility:[facility] Start: 04-06-2025 End: 04-06-2025 Emergency department patient visit Lyric Weaver Facility:[facility] Start: 08-27-2022 Evaluation and management of inpatient [facility]-Medical Surgical 3 Start: 05-16-2022 ambulatory Lyric Weaver CNP [facility] Start: 05-16-2022 End: 05-16-2022 Office outpatient visit 15 minutes Lyric Weaver CNP Work Phone: [facility] Start: 04-09-2022 End: 04-09-2022 ambulatory BOA PERALTA Facility:[facility] Start: 04-09-2022 Telephone encounter Bao doshi MD Work Phone: [facility] Comment on above: Follow Up Start: 03-12-2022 Telephone encounter Ag Orth Work Phone: [facility] Comment on above: Schedule Surgery Start: 02-14-2022 End: 02-14-2022 Office outpatient visit 15 minutes Lyric Weaver CNP Work Phone: [facility] Start: 01-24-2022 End: 01-24-2022 Lyric Weaver HEALTH EDUCATION DIRECTOR Work Phone: [facility] Start: 01-22-2022 End: 01-22-2022 ambulatory BAO PERALTA Facility:[facility] Start: 01-22-2022 End: 01-22-2022 Patient encounter procedure Bao Peralta MD Work Phone: [facility] Comment on above: Closed displaced obl ique fracture of shaft of right tibia with routine healing, subsequent encounter (Primary Dx) Start: 12-18-2021 End: 12-18-2021 ambulatory BAO PERALTA Facility:[facility] Start: 12-18-2021 End: 12-18-2021 Patient encounter procedure Bao Peralta MD Work Phone: [facility] Comment on above: Closed displaced obl ique fracture of shaft of right tibia with routine healing, subsequent encounter (Primary Dx) Start: 12-17-2021 Telephone encounter Maryellen LOPEZ Comment on above: Follow Up Phone Call (Post Discharge F/U attempt made. No answer. ) Start: 12-11-2021 Telephone encounter Ag Orth Work Phone: [facility] Comment on above: Surgical Followup Start: 12-06-2021 End: 12-09-2021 Evaluation and management of inpatient DELFINA BOYD Facility:[facility] Start: 12-06-2021 End: 12-06-2021 Emergency department patient visit [facility]-Emergency Department Start: 11-13-2021 End: 11-13-2021 Office outpatient visit 25 minutes Breanna Castañeda Work Phone: [facility] Start: 08-09-2021 Breanna Castañeda HEALTH EDUCATION DIRECTOR Work Phone: [facility] Start: 08-09-2021 End: 08-09-2021 Office outpatient visit 15 minutes Breanna Castañeda HEALTH EDUCATION DIRECTOR Work Phone: [facility] Start: 05-14-2021 End: 05-14-2021 Breanna Castañeda HEALTH EDUCATION DIRECTOR Work Phone: [facility] Start: 05-13-2021 End: 05-13-2021 Office outpatient visit 40 minutes Breanna Castañeda HEALTH EDUCATION DIRECTOR Work Phone: [facility] Start: 05-10-2021 End: 05-10-2021 Office outpatient visit 15 minutes Breanna Castañeda HEALTH EDUCATION DIRECTOR Work Phone: [facility] Start: 09-19-2020 End: 09-19-2020 Office outpatient visit 25 minutes Breanna Castañeda [facility] Start: 05-21-2020 Review Breanna Briggs randal [facility] Start: 05-21-2020 End: 05-21-2020 Office outpatient visit 15 minutes Breanna Castañeda [facility] Start: 02-15-2020 End: 02-15-2020 Office outpatient visit 15 minutes Breanna Castañeda [facility] Start: 02-06-2020 End: 02-06-2020 Office outpatient visit 15 minutes Breanna Castañeda [facility] Start: 02-06-2020 Review Breanna Briggs randal [facility] Start: 11-04-2019 End: 11-04-2019 Office outpatient visit 25 minutes Breanna Castañeda [facility] Start: 08-23-2019 End: 08-23-2019 Office outpatient visit 15 minutes Breanna Castañeda [facility] Start: 08-22-2019 End: 08-22-2019 Annotation/Addendum Breanna Castañeda [facility] Certified Paralegal al Medicine Start: 08-22-2019 End: 08-22-2019 Breanna Parikhsonny HEALTH EDUCATION DIRECTOR Work Phone: [facility] Start: 08-15-2019 End: 08-15-2019 Office outpatient visit 15 minutes Breanna Castañeda [facility] Start: 07-12-2019 End: 07-12-2019 Office outpatient visit 25 minutes Breanna Castañeda [facility] Start: 07-05-2019 End: 07-05-2019 Office outpatient visit 25 minutes Breanna Ciesa [facility] Start: 07-20-2018 End: 07-20-2018 Office outpatient visit 15 minutes Breanna Elaineterrencesonny Saldana [facility] Start: 03-23-2018 End: 03-23-2018 Office outpatient visit 25 minutes Breanna Castañeda Les [facility] Start: 12-04-2017 End: 12-04-2017 Office outpatient visit 15 minutes Breanna Parikhsonny Saldana [facility] Start: 11-23-2017 End: 11-23-2017 Lab Order Breanna Elaineterrencesonny Saldana Certified Paralegal al Medicine Start: 11-23-2017 End: 11-23-2017 Breanna Castañeda HEALTH EDUCATION DIRECTOR Work Phone: [facility] Start: 11-20-2017 End: 11-20-2017 Office outpatient visit 25 minutes Breanna Garry Saldana [facility] Start: 09-14-2017 End: 09-14-2017 Annotation/Addendum Breanna Castañeda [facility] Paralegal [facility] Start: 09-14-2017 End: 09-14-2017 Breanna Parikhsonny HEALTH EDUCATION DIRECTOR Work Phone: [facility] Start: 09-02-2017 End: 09-02-2017 Annotation/Addendum Breanna Castañeda [facility] Paralegal al [facility] Start: 09-02-2017 End: 09-02-2017 Breanna Castañeda HEALTH EDUCATION DIRECTOR Work Phone: [facility] Start: 09-01-2017 End: 09-01-2017 Office outpatient visit 25 minutes Breanna Parikhsonny Saldana [facility] Start: 08-12-2017 End: 08-12-2017 Annotation/Addendum Breanna Castañeda [facility] Paralegal [facility] Start: 08-12-2017 End: 08-12-2017 Breanna Parikhsonny HEALTH EDUCATION DIRECTOR Work Phone: [facility] Start: 08-11-2017 End: 08-11-2017 Office consultation new/estab patient 60 min Breanna Elaineterrencesonny Saldana [facility] Start: 08-10-2017 End: 08-10-2017 Office outpatient visit 15 minutes Breanna Saldana [facility] Start: 05-14-2016 End: 05-14-2016 Patient encounter procedure Breanna Saldana [facility] Start: 05-14-2016 End: 05-14-2016 Breanna Henryterrencesonny HEALTH EDUCATION DIRECTOR Work Phone: [facility] Start: 01-15-2016 End: 01-15-2016 Patient encounter procedure Breanna Ciesa [facility] Start: 01-15-2016 End: 01-15-2016 Breanna Castañeda HEALTH EDUCATION DIRECTOR Work Phone: [facility] Start: 10-15-2015 End: 10-15-2015 Office outpatient visit 15 minutes Breanna Castañeda [facility] Start: 09-14-2015 End: 09-14-2015 Office outpatient visit 10 minutes Breanna Castañeda [facility] Start: 08-16-2015 End: 08-16-2015 Lab Order Breanna Castañeda [facility] Paralegal [facility] Start: 08-16-2015 End: 08-16-2015 Breanna Castañeda HEALTH EDUCATION DIRECTOR Work Phone: [facility] Start: 08-06-2015 End: 08-06-2015 Lab Order Breanna Castañeda [facility] Paralegal al [facility] Start: 08-06-2015 End: 08-06-2015 Breanna Castañeda HEALTH EDUCATION DIRECTOR Work Phone: [facility] Start: 07-16-2015 End: 07-16-2015 Periodic preventive med est patient 65yrs& older Breanna Castañeda [facility] Start: 06-04-2015 End: 06-04-2015 Periodic preventive med est patient 40-64yrs Breanna Castañeda [facility] Start: 04-27-2015 End: 04-27-2015 Historical Summary Breanna Castañeda [facility] Paralegal al [facility] Start: 04-27-2015 End: 04-27-2015 Breanna Castañeda HEALTH EDUCATION DIRECTOR Work Phone: [facility] Start: 03-26-2015 End: 03-26-2015 Office outpatient visit 15 minutes Breanna Castañeda [facility] Start: 03-16-2014 End: 03-16-2014 Office outpatient visit 15 minutes Breanna Castañeda [facility] Start: 03-09-2014 End: 03-09-2014 Phone Encounter Breanna Castañeda [facility] Certified Paralegal al [facility] Start: 03-09-2014 End: 03-09-2014 Breanna Castañeda HEALTH EDUCATION DIRECTOR Work Phone: [facility] Start: 12-14-2013 End: 12-14-2013 Lab Order Breanna Castañeda [facility] Certified Paralegal al Medicine Start: 12-14-2013 End: 12-14-2013 Breanna Castañeda HEALTH EDUCATION DIRECTOR Work Phone: [facility] Start: 12-13-2013 [...] Medicine Start: 04-21-2013 End: 04-21-2013 Breanna Castañeda HEALTH EDUCATION DIRECTOR Work Phone: [facility] Start: 02-17-2013 End: 02-17-2013 Patient encounter procedure Breanna Castañeda [facility] Start: 02-17-2013 End: 02-17-2013 Preprocedural examination done Lyirc Weaver CNP Work Phone: [facility] Start: 02-17-2013 End: 02-17-2013 Breanna Castañeda HEALTH EDUCATION DIRECTOR Work Phone: [facility] Start: 02-14-2013 End: 02-14-2013 Lab Order Breanna Castañeda [facility] Certified Paralegal al Medicine Start: 02-14-2013 End: 02-14-2013 Breanna Castañeda HEALTH EDUCATION DIRECTOR Work Phone: [facility] Start: 01-14-2013 End: 01-14-2013 Patient encounter procedure Breanna Castañeda [facility] Start: 01-14-2013 End: 01-14-2013 Preprocedural examination done Lyric Weaver CNP Work Phone: [facility] Start: 01-14-2013 End: 01-14-2013 Breanna Castañeda HEALTH EDUCATION DIRECTOR Work Phone: [facility] Start: 11-15-2012 End: 11-15-2012 Patient encounter procedure Breanna Castañeda [facility] Start: 11-15-2012 End: 11-15-2012 Breanna Castañeda HEALTH EDUCATION DIRECTOR Work Phone: [facility] Start: 10-21-2012 End: 10-21-2012 Patient encounter procedure Breanna Castañeda [facility] Start: 10-21-2012 End: 10-21-2012 Breanna Castañeda HEALTH EDUCATION DIRECTOR Work Phone: [facility] Start: 07-22-2012 End: 07-22-2012 Patient encounter procedure Breanna Castañeda [facility] Start: 07-22-2012 End: 07-22-2012 Breanna Castañeda HEALTH EDUCATION DIRECTOR Work Phone: [facility] Start: 03-29-2012 End: 03-29-2012 Patient encounter procedure Breanna Castañeda [facility] Start: 03-29-2012 End: 03-29-2012 Breanna Castañeda HEALTH EDUCATION DIRECTOR Work Phone: [facility] Start: 02-11-2012 End: 02-11-2012 Office outpatient visit 25 minutes Breanna Castañeda [facility] Start: 12-29-2011 End: 12-29-2011 Patient encounter procedure Breanna Castañeda [facility] Start: 12-29-2011 End: 12-29-2011 Breanna Castañeda HEALTH EDUCATION DIRECTOR Work Phone: [facility] Start: 05-12-2011 End: 05-12-2011 Patient encounter procedure Breanna Castañeda [facility] Start: 05-12-2011 End: 05-12-2011 Patient encounter status Lyric Weaver HEALTH EDUCATION DIRECTOR Work Phone: [facility] Start: 05-12-2011 End: 05-12-2011 Breanna Castañeda HEALTH EDUCATION DIRECTOR Work Phone: [facility] Start: 01-06-2011 End: 01-06-2011 Phone Encounter Breanna Castañeda [facility] Certified Paralegal al [facility] Start: 01-06-2011 End: 01-06-2011 Breanna Castañeda HEALTH EDUCATION DIRECTOR Work Phone: [facility] Start: 01-03-2011 End: 01-03-2011 Patient encounter procedure Breanna Castañeda [facility] Start: 01-03-2011 End: 01-03-2011 Breanna Castañeda HEALTH EDUCATION DIRECTOR Work Phone: [facility] Start: 09-26-2010 End: 09-26-2010 Patient encounter procedure Breanna Castañeda [facility] Start: 09-26-2010 End: 09-26-2010 Breanna Castañeda HEALTH EDUCATION DIRECTOR Work Phone: [facility] Start: 08-12-2010 End: 08-12-2010 Patient encounter procedure Breanna Castañeda [facility] Start: 08-12-2010 End: 08-12-2010 Breanna Castañeda HEALTH EDUCATION DIRECTOR Work Phone: [facility] Start: 07-11-2010 End: 07-11-2010 Office outpatient visit 25 minutes Breanna Castañeda [facility] Start: 07-11-2009 End: 07-11-2009 Office outpatient visit 25 minutes Breanna Castañeda [facility] Start: 12-01-2008 End: 12-01-2008 Phone Encounter Breanna Castañeda [facility] Certified Paralegal al Medicine Start: 12-01-2008 End: 12-01-2008 Breanna Castañeda HEALTH EDUCATION DIRECTOR Work Phone: [facility] Start: 11-30-2008 End: 11-30-2008 Patient encounter procedure Breanna Castañeda [facility] Start: 11-30-2008 End: 11-30-2008 Patient encounter status Lyric Weaver CNP Work Phone: [facility] Start: 11-30-2008 End: 11-30-2008 Breanna Castañeda HEALTH EDUCATION DIRECTOR Work Phone: [facility] Start: 09-13-2008 End: 09-13-2008 Office outpatient visit 15 minutes Breanna Castañeda [facility] Start: 08-23-2008 End: 08-23-2008 Patient encounter procedure Breanna Castañeda [facility] Start: 08-23-2008 End: 08-23-2008 Breanna Castañeda HEALTH EDUCATION DIRECTOR Work Phone: [facility] Start: 03-20-2008 End: 03-20-2008 Patient encounter procedure Breanna Castañeda [facility] Start: 03-20-2008 End: 03-20-2008 Breanna Castañeda HEALTH EDUCATION DIRECTOR Work Phone: [facility] Start: 12-28-2007 End: 12-28-2007 Annotation/Addendum Breanna Castañeda [facility] Start: 12-28-2007 End: 12-28-2007 Breanna Castañeda HEALTH EDUCATION DIRECTOR Work Phone: [facility] Start: 12-27-2007 End: 12-27-2007 Office outpatient visit 15 minutes Breanna Castañeda [facility] Start: 12-13-2007 End: 12-13-2007 Patient encounter procedure Breanna Castañeda [facility] Start: 12-13-2007 End: 12-13-2007 Patient encounter status Lyric Weaver CNP Work Phone: [facility] Start: 12-13-2007 End: 12-13-2007 Breanna Castañeda CNP Work Phone: [facility] Start: 11-17-2007 End: 11-17-2007 Office outpatient visit 25 minutes Breanna Castañeda [facility] Start: 10-21-2007 End: 10-21-2007 Patient encounter procedure Breanna Castañeda [facility] Start: 10-21-2007 End: 10-21-2007 Breanna Castañeda HEALTH EDUCATION DIRECTOR Work Phone: [facility] Start: 09-07-2007 End: 09-07-2007 Office outpatient visit 15 minutes Breanna Castañeda [facility] Start: 08-10-2007 End: 08-10-2007 Patient encounter procedure Breanna Castañeda [facility] Start: 08-10-2007 End: 08-10-2007 Breanna Castañeda HEALTH EDUCATION DIRECTOR Work Phone: [facility] Start: 07-15-2007 End: 07-15-2007 Office outpatient visit 15 minutes Breanna Castañeda [facility] Start: 05-11-2007 End: 05-11-2007 Patient encounter procedure Breanna Castañeda [facility] Start: 05-11-2007 End: 05-11-2007 Breanna Castañeda HEALTH EDUCATION DIRECTOR Work Phone: [facility] Start: 04-22-2007 End: 04-22-2007 Office outpatient visit 15 minutes Breanna Castañeda [facility] Start: 02-09-2007 End: 02-09-2007 Office outpatient visit 15 minutes Breanna Castañeda [facility] Start: 01-20-2007 End: 01-20-2007 Historical Summary Breanna Cast[facility]eda [facility] Start: 01-20-2007 End: 01-20-2007 Breanna Castañeda HEALTH EDUCATION DIRECTOR Work Phone: [facility] Start: 01-19-2007 End: 01-19-2007 Nursing evaluation of patient and report Breanna Castañeda [facility] Start: 01-19-2007 End: 01-19-2007 Breanna Castañeda HEALTH EDUCATION DIRECTOR Work Phone: [facility] Start: 01-07-2007 End: 01-07-2007 Patient encounter procedure Breanna Castañeda [facility] Start: 01-07-2007 End: 01-07-2007 Breanna Castañeda HEALTH EDUCATION DIRECTOR Work Phone: [facility] Start: 12-31-2006 End: 12-31-2006 Office outpatient visit 25 minutes Breanna Castañeda [facility] Start: 12-16-2006 End: 12-16-2006 Patient encounter procedure Breanna Castañeda [facility] Start: 12-16-2006 End: 12-16-2006 Breanna Castañeda HEALTH EDUCATION DIRECTOR Work Phone: [facility] Start: 11-16-2006 End: 11-16-2006 Patient encounter procedure Breanna Castañeda [facility] Start: 11-16-2006 End: 11-16-2006 Breanna Castañeda HEALTH EDUCATION DIRECTOR Work Phone: [facility] Start: 10-05-2006 End: 10-05-2006 Patient encounter procedure Breanna Castañeda [facility] Start: 10-05-2006 End: 10-05-2006 Breanna Castañeda HEALTH EDUCATION DIRECTOR Work Phone: [facility] Start: 09-24-2006 End: 09-24-2006 Patient encounter procedure Breanna Castañeda [facility] Start: 09-24-2006 End: 09-24-2006 Breanna Castañeda HEALTH EDUCATION DIRECTOR Work Phone: [facility] Start: 08-13-2006 End: 08-13-2006 Patient encounter procedure Breanna Castañeda [facility] Start: 08-13-2006 End: 08-13-2006 Breanna Castañeda HEALTH EDUCATION DIRECTOR Work Phone: [facility] Start: 07-30-2006 End: 07-30-2006 Patient encounter procedure Breanna Castañeda [facility] Start: 07-30-2006 End: 07-30-2006 Breanna Castañeda HEALTH EDUCATION DIRECTOR Work Phone: [facility] Start: 06-16-2006 End: 06-16-2006 Office outpatient visit 25 minutes Breanna Castañeda [facility] Start: 05-13-2006 End: 05-13-2006 Historical Summary Breanna Cast[facility]eda [facility] Start: 05-13-2006 End: 05-13-2006 Breanna Castañeda HEALTH EDUCATION DIRECTOR Work Phone: [facility] Start: 05-07-2006 End: 05-07-2006 Historical Summary Breanna Cast[facility]eda [facility] Start: 05-07-2006 End: 05-07-2006 Breanna Castañeda HEALTH EDUCATION DIRECTOR Work Phone: [facility] End: 07-22-2012 Physical examination Car Repairer Helper [facility]; [facility] Work Phone: End: 04-21-2013 Preprocedural examination done Car Repairer Helper [facility]; [facility] Work Phone: Procedures Date Procedure Procedure Detail Performing Clinician Start: 09-09-2022 End: 09-10-2022 Procedure Note: See Note; NOTES: [facility] [address] [place] [address] OFFICE VISIT Date of Service: 09/09/22 MR#: [id number] Acct: [id number] Name: LASHA SMITH Rep #: [id number] : 1960 Provider: Dr. 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 Joselny Cano MD) Father CAD (coronary artery disease) [...] MD Cosigner Signature: Date (if applicable) CC: TESTER SEMICONDUCTOR PACKAGESBaltazar Weaver HEALTH EDUCATION DIRECTOR Work Phone: Start: 09-04-2022 End: 09-04-2022 Procedure Note: See Note; NOTES: [facility] [facility] [address] [place] [address] OFFICE VISIT Date of Service: 09/02/22 MR#: [id number] Acct: [id number] Name: LASHA SMITH Rep #: [id number] : 1960 Provider: Dr. Debbi agustin MD Age/Sex: 61/M Location: [facility] Status: Signed Intake Vital Signs 08/27/22 [...] Z90.49 Acute perforated appendicitis K35.32 Diabetes E11.9 [facility] Medical History (Updated 08/29/22 @ 09:[address] Debbi Cramer MD) Atherosclerotic heart disease of [place] coronary artery without angina pectoris Diabetes GERD [...] Signature: Date (if applicable) CC: Lyric Weaver CNP Work Phone: Start: 08-27-2022 Plain chest X-ray Start: 08-27-2022 End: 08-27-2022 Procedure Note: See Note; NOTES: [facility] Medical Records Department [address] [place] [address] Emergency Department Summary 08/27/22 MR#: [id number] Acct: [id number] Name: LASHA SMITH Rep #: [id number] : 1960 61 From: Garret Mark MD PCP: Lyric Weaver NP-C Status:REG ER Location: ED HPI HPI - [...] appetite today due to this. [facility] Medical History (Updated 08/27/22 @ 05:[address] Garret Mark MD) Atherosclerotic heart disease of [place] coronary artery without angina pectoris Diabetes GERD [...] 81.2 H Lymph % (Auto) 6.1 L [place] % (Auto) 11.9 H Eos % (Auto) [...] Clarity Clear Urine pH 6.0 Ur Specific [place] 1.020 Urine Protein 30 H Urine Glucose [...] 5:32 EDT Reading Location ID and State: [address] [place] [address] Tel , Service support , ADDENDUM: 08/27/22 [...] 5:32 EDT Reading Location ID and State: [address] [place] [address] Tel , Service support , Rhythm Strip Rhythm Strip: Sinus Tach Rate: 110 Ectopy: None Critical Care Time Critical Care Time: Yes Critical care time (excluding procedures): 30-74 minutes (35 min), Including time spent:, Discussing w/Patient /or Family/Pipe Inspector, Discussing w/Consultants, Arranging Admission or Transfer and Performing Direct Patient Care at Bedside Discharge Plan Dx/Rx/DC Orders Clinical Impression: Acute appendicitis Disposition Disposition: Acute Care Hospital [facility] What to do if you have Problems For any increased pain, shortness of breath, bleeding, nausea or vomiting, chest pain, or any unexpected problems, contact your Primary Care Provider. Call [facility] ([phone]) or report to the closest Emergency Room. Call 911 if necessary. 08/27/22 0546 <Electronically signed by Garret Mark MD> Cosigner Signature (if applicable): CC: [employer]-C Lyric Weaver Signed Lyric Weaver HEALTH EDUCATION DIRECTOR Work Phone: Start: 08-27-2022 Computed tomography of abdomen and pelvis with intravenous contrast Start: 08-27-2022 End: 08-27-2022 Procedure Note: See Note; NOTES: [facility] Imaging Services [address] [place] [address] Abdomen/Pelvis W IV Cont ONLY MR#: [id number] Acct: [id number] Name: LASHA SMITH Rep #: [id number] : 1960 M 61 From: Rusty Steiner PCP: HARINI Espinoza Status: REG ER Study: Abdomen/Pelvis W IV Cont ONLY Date of Exam: Exam# [id number] Ordering Dr: Garret Mark MD We are [...] 5:32 EDT Reading Location ID and State: [address] [place] [address] Tel , Service support , CC: HARINI Weaver; Dr. Garrte Mark MD Booking Clerk: Signed Lyric Weaver CNP Work Phone: Start: 01-22-2022 Radiologic examination tibia & fibula 2 views Bao Peralta MD Work Phone: Start: 12-18-2021 Radiologic examination tibia & fibula 2 views Bao Peralta MD Work Phone: Start: 12-07-2021 Antibody screen DELFINA BONEZZI Comment on above: Order Comment: Specimen Type: BLOOD SPEC IMEN Ordering Facility: [facility] Address: [address] [place] [address] Performed By: #### T SCR #### [facility] CLIA [id number] 1 [place] [address] [place] Start: 12-06-2021 Plain chest X-ray Start: 12-06-2021 Radiography of ankle Start: 12-06-2021 CT cervical spine without contrast Start: 12-06-2021 CT of head without contrast Start: 07-27-2018 End: 07-27-2018 Cardiology Visit Report Comments: See Note; NOTES: [facility] [address] [place] [address] OFFICE VISIT Date of Service: 07/27/18 MR#: [id number] Acct: [id number] Name: LASHA SMITH Rep #: [id number] : 1960 Provider: Rob Abreu MD Age/Sex: 57/M Location: [facility] Status: Signed HPI HPI Chief [...] DAILY #90 tab 07/27/18 [Rx Confirmed 07/27/18] [facility] Medical History Atherosclerotic heart disease of [place] coronary artery without angina pectoris (Chronic) YE [...] activity; negative for SOB at rest, SOB orthopnea\SOB lying down, Cough or paroxysmal nocturnal dyspnea [...] AND Plan 1. Atherosclerotic heart disease of [place] coronary artery without angina pectoris I25.10 Plan [...] vis,est,level 3 Diagnoses Atherosclerotic heart disease of [place] coronary artery without angina pectoris I25.10 Hyperlipidemia E78.5 Tobacco use disorder F17.200 Coding Level of Care Code Off vis,est,level 3 Diagnoses Atherosclerotic heart disease of [place] coronary artery without angina pectoris I25.10 Hyperlipidemia [...] Rob Abreu MD> Date Rob Abreu MD Cosigner Signature: Date (if applicable) CC: Breanna Castañeda Start: 10-17-2017 End: 10-17-2017 Urgent Care Visit Report Comments: See Note; NOTES: [place] [address] OFFICE VISIT Date of Service: 10/17/17 MR#: [id number] Acct: [id number] Name: LASHA SMITH Rep #: [id number] : 1960 Provider: Neto Doyle NP Age/Sex: 56/M Location: [facility] Status: Signed Intake Vital Signs10/17/17 Height 5 [...] PFSH Medical History Atherosclerotic heart disease of [place] coronary artery without angina pectoris (Chronic) YE [...] worse. He has not tried any other ztqz-nwr-jpqegvu treatments at this time. He does state [...] oriented x3 Limitations: mental status not altered [facility] Head: normal to inspection Ears: hearing grossly [...] J06.9 10/17/17 1105 <Electronically signed by Neto SCHULER> Date Neto Doyle [employer]-C Cosigner Signature: Date (if applicable) CC: Breanna Castañeda Start: 10-08-2017 End: 10-08-2017 Stress Test Echo w/o Contrast Comments: See Note; NOTES: [facility] Cardiovascular Services [address] [place] [address] Stress Test Echo W/Contrast MR#: [id number] Acct: [id number] Name: LASHA SMITH Rep #: [id number] : 1960 56 From: Rob Abreu MD [...] Date Dictated: 10/08/17 1304 Date Transcribed: 10/08/171728 Booking Clerk: Signed Breanna Castañeda Start: 09-14-2017 End: 09-14-2017 Liver Comments: See Note; NOTES: [facility] Imaging Services [address] [place] [address] Liver MR#: [id number] Acct: [id number] Name: LASHA SMITH Rep #: [id number] : 1960 M 56 From: Jm Ware MD PCP: Breanna Castañeda NP Status: REG CLI Study: Liver Date of Exam: 09/14/17 Exam# [id number] Ordering Dr: Breanna Castañeda STUDY: ABDOMINAL ULTRASOUND [...] Jm Ware MD at 15:05 EDT Tel [phone], Service support , CC: Breanna Castañeda NP Booking Clerk: Signed Breanna Castañeda Work Phone: Start: 09-11-2017 End: 09-11-2017 Cardiology Visit Report Comments: See Note; NOTES: [facility] [address] [place] [address]. [address] [place], [place] [address] OFFICE VISIT Date of Service: 09/11/17 MR#: [id number] Acct: [id number] Name: LASHA SMITH Rep #: [id number] : 1960 Provider: Rob Abreu MD Age/Sex: 56/M Location: [facility] Status: Signed HPI HPI Chief Complaint: Routine [...] Aspirin [Aspirin, Baby] 81 mg PO DAILY@0800 11/29/15 [History Confirmed 09/11/17] Garlic 1,000 mg PO [...] PO BID cap 09/09/17 [History Confirmed 09/11/17] [facility] Medical History Atherosclerotic heart disease of [place] coronary artery without angina pectoris (Chronic) YE [...] stairs); negative for SOB at rest, SOB orthopnea\SOB lying down or paroxysmal nocturnal dyspnea GI [...] AND Plan 1. Atherosclerotic heart disease of [place] coronary artery without angina pectoris I25.10 Plan [...] Bravo scontinued Reason: Order Changed paulette Pain () Follow Up +6m (Jay) Coding Level of Care Code Off vis,est,level 3 Diagnoses Atherosclerotic heart disease of [place] coronary artery without angina pectoris I25.10 Hyperlipidemia E78.5 Coding Level of Care Code Off vis,est,level 3 Diagnoses Atherosclerotic heart disease of [place] coronary artery without angina pectoris I25.10 Hyperlipidemia E78.5 09/11/17 1404 <Electronically signed by Rob Abreu MD> Date Rob Abreu MD [facility] Signature: Date (if applicable) CC: Breanna Castañeda Start: 12-26-2016 End: 12-26-2016 Dietary management education, guidance, and counseling Timothy BLACK Start: 05-12-2016 End: 11-04-2016 MUMTAZ Abreu MD Work Phone: Start: 05-12-2016 End: 11-04-2016 Follow Up Appt 6 months Rob Abreu MD Work Phone: Start: 11-15-2015 End: 11-15-2015 Operative Report Comments: See Note; NOTES: [facility] Medical Records Department [address] [place] [address] Operative Report MR#: [id number] Acct: [id number] Name: LASHA SMITH Rep #: [id number] : 1960 54 From: Jossue Douglas MD PCP: Delfina Boyd MD Status: DEP [facility] DATE OF SERVICE: 11/14/2015 DATE OF PROCEDURE: November 14, 2015. PREOPERATIVE DIAGNOSIS: Umbilical incisional hernia. POSTOPERATIVE DIAGNOSIS: Umbilical incisional hernia. PROCEDURES: Repair of umbilical incisional hernia using laparoscopic incisional hernia repair, Ventralex ST mesh, large size, reference #[id number], lot #[id number], expires August 05, 2017, secured with sutures and SecureStrap reference #[id number], lot #[id number], expires in April 2017. SURGEON: Jossue Douglas M.D. DUPLICATOR PUNCH SET UP OPERATOR: Mark Wesley. ANESTHESIA: General endotracheal. ANESTHESIOLOGIST: Ravin. [...] condition. Jossue Douglas MD T: NTS JOB: [id number] 11/15/15 1735 <Electronically signed by Jossue Douglas MD> Date Jossue Douglas MD Cosigner Signature (If Indicated): Date CC: Delfina Boyd MD; Jossue Douglas MD Date Dictated: 11/14/15819 Date Transcribed: 11/14/15819 Booking Clerk: Signed Breanna Castañeda Start: 11-14-2015 End: 11-14-2015 Discharge Instruction Comments: See Note; NOTES: [facility] Medical Records Department [address] [place] [address] Instructions for Home/Discharge Instructions 11/14/15811 MR#: [id number] Acct: [id number] Name: LASHA SMITH Rep #: [id number] : 1960 54 From: Jossue Douglas MD PCP: Delfina Boyd MD Status: REG [facility] Discharge Diet: Light diet - advance as [...] Please Follow Up With: Jossue Douglas - [phone] When: Plan to have a follow up appointment in 7 days. Call to schedule. 11/14/15813 <Electronically signed by Jossue Douglas MD> Date Jossue Douglas MD CC: Delfina Boyd MD Breanna Elainesonny Start: 10-30-2015 End: 10-30-2015 DJN Rob Abreu MD Work Phone: Start: 10-30-2015 End: 10-30-2015 Follow Up Appt 6 months Rob Abreu MD Work Phone: Start: 10-21-2015 End: 10-21-2015 Discharge Instruction Comments: See Note; NOTES: [facility] Medical Records Department [address] [place] [address] Discharge Instruction 10/21/15 1642 MR#: [id number] Acct: [id number] Name: LASHA SMITH Rep #: [id number] : 1960 54 From: Johnson Parra MD PCP: Delfina Boyd MD Status: REG ER ED Disposition - Plan for ED Patient: Disposition: Home or Assisted Living Chief Complaint: Abd Pain Instructions: ED Abdominal Pain, Unknown Cause, (Male) Prescriptions: Hydrocodone Bitart/Apap 5-325 [Clinton 5MG-325MG] 1 - 2 tablet PO Q4H [...] problems, contact your doctor. Call [facility] ([phone]) or report to the closest Emergency Room. Call 911 if necessary. 10/21/15 1702 <Electronically signed by Johnson Parra MD> Date Johnson Parra MD Cosigner Signature (If Indicated): Date CC: Delfina Boyd MD Breanna Castañeda Start: 10-21-2015 End: 10-21-2015 Abdomen/Pelvis WITH Contrast Comments: See Note; NOTES: [facility] Imaging Services [address] [place] [address] Verdana 4d Abdomen/Pelvis WITH Contrast MR#: [id number] Acct: [id number] Name: LASHA SMITH Rep #: [id number] : 1960 M 54 From: Minesh Hernandez MD PCP: Delfina Boyd MD Status: [facility] ER Study: Abdomen/Pelvis WITH Contrast Date of Exam: 10/21/15 Exam# [id number] Ordering Dr: Johnson Parra MD STUDY: CT [...] MD at 19:07 EDT , Service support [phone], CC: Delfina Boyd MD; Johnson Parra MD Booking Clerk: Signed Breanna Garry Start: 10-21-2015 End: 10-21-2015 Abd Decub and/or Erect(Portabl Comments: See Note; NOTES: [facility] Imaging Services [address] [place] [address] Verdana 4d Abd Decub and/or Erect(Portabl MR#: [id number] Acct: [id number] Name: LASHA SMITH Rep #: [id number] : 1960 M 54 From: Minesh Hernandez MD PCP: Delfina Boyd MD Status: REG ER Study: Abd Decub and/or Erect(Portabl Date of Exam: 10/21/15 Exam# [id number] Ordering Dr: Johnson Parra MD STUDY: X-RAY [...] MD at 16:44 EDT , Service support [phone], RAD/Abd Decub and/or Erect(Portabl IMPRESSION: No evidence for acute abnormality or obstruction. Electronically Signed: Minesh Hernandez MD at 16:44 EDT , Service support [phone], CC: Delfina Boyd MD; Johnson Parra MD Booking Clerk: Signed Breanna Castañeda Start: 10-15-2015 End: 10-15-2015 Ecg routine ecg w/least 12 lds w/i&r [MEASUREMENTS ANALYSIS] Date of Test: 10/15/2015 09:27:12; Heart Rate: 69; WA Interval: 156; QRS: 96; QT Interval: 382; Corrected QT Interval (QTc): 397; P Wave Kirksey: 15; QRS Wave Kirksey: 20; T Wave Kirksey: -1; Blood Pressure: 124/80 [ECG DIAGNOSTIC STATEMENTS] [...] Brain/Head without Contrast Comments: See Note; NOTES: [facility] Imaging Services [address] [place] [address] Verdana 4d Brain/Head without Contrast MR#: [id number] Acct: [id number] Name: LASHA SMITH Rep #: [id number] : 1960 54 From: Rusty Newton MD PCP: Delfina Boyd MD Status: REG ER Study: Brain/Head without Contrast Date of Exam: 05/06/15 Exam# [id number] Ordering Dr: Tereso Ceron MD STUDY: CT [...] MD at 20:21 EST , Service support [phone], CC: Delfina Boyd MD; Tereso Ceron MD Booking Clerk: Signed Breanna Castañeda Start: 05-06-2015 End: 05-06-2015 CTA Head W/WO Contrast Comments: See Note; NOTES: [facility] Imaging Services [address] [place] [address] Verdana 4d CTA Head W/WO Contrast MR#: [id number] Acct: [id number] Name: LASHA SMITH Rep #: [id number] : 1960 54 From: Johnson Pierre MD PCP: Delfina Boyd MD Status: REG Study: CTA Head W/WO Contrast Date of Exam: 05/06/15 Exam# [id number] Ordering Dr: Tereso Ceron MD STUDY: CTA [...] There is no demonstrated aneurysm of the [place]. There is no demonstrated abnormality of the visualized brain. IMPRESSION: Mild atherosclerotic changes. Electronically Signed: Johnson Pierre MD at 20:37 EST , Service support [phone], CC: Delfina Boyd MD; Tereso Ceron MD Booking Clerk: Signed Breanna Castañeda Start: 05-06-2015 End: 05-06-2015 CTA Neck W/WO Contrast Comments: See Note; NOTES: [facility] Imaging Services [address] [place] [address] Verda 4d CTA Neck W/WO Contrast MR#: [id number] Acct: [id number] Name: LASHA SMITH Rep #: [id number] : 1960 M 54 From: Johnson Pierre MD PCP: Delfina Boyd MD Status: [facility] Study: CTA Neck W/WO Contrast Date of Exam: 05/06/15 Exam# [id number] Ordering Dr: Tereso Ceron MD CTA of [...] MD at 20:39 EST , Service support [phone], CC: Delfina Boyd MD; Tereso Ceron MD Booking Clerk: Signed Breanna Castañeda Start: 04-24-2015 End: 04-24-2015 MUMTAZ Abreu MD Work Phone: Start: 04-24-2015 End: 04-24-2015 Follow Up Appt 1 year Rob Abreu MD Work Phone: Start: 04-24-2015 End: 08-07-2015 Lipid panel [AGGREGATE] Rob Abreu MD Work Phone: Start: 03-26-2015 End: 03-27-2015 Knee 4 or More Views Comments: See Note; NOTES: [facility] Imaging Services [address] [place] [address] Verdana 4d Knee 4 or More Views MR#: [id number] Acct: [id number] Name: LASHA SMITH Rep #: [id number] : 1960 M 54 From: Brandy Szymanski MD PCP: Delfina Boyd MD Status: REG CLI Study: Knee 4 or More Views Date of Exam: 03/26/15 Exam# [id number] Ordering Dr: Delfina Boyd MD STUDY: X-RAY [...] MD at 11:42 EDT , Service support [phone], RAD/Knee 4 or More Views IMPRESSION: Minimal degenerative arthrosis. Electronically Signed: Branyd Szymanski MD at 11:42 EDT , Service support [phone], CC: Delfina Boyd MD Booking Clerk: Signed Delfina Boyd Work Phone: Start: 11-28-2014 End: 11-28-2014 Emergency Department Summary Comments: See Note; NOTES: [facility] Medical Records Department [address] [place] [address] Emergency Department Summary MR#: [id number] Acct: [id number] Name: LASHA SMITH Rep #: [id number] : 1960 53 From: Rob Alexandra DO [...] contusion/sprain. Rob Alexandra DO T: NTS JOB: [id number] 11/28/14 0108 <Electronically signed by Rob Alexandra DO> Date Rob Alexandra DO CC: Delfina Boyd MD Date Dictated: 11/20/14852 Date Transcribed: 11/20/14852 Booking Clerk: Linden Castañeda Start: 11-20-2014 End: 11-20-2014 Discharge Instruction Comments: See Note; NOTES: [facility] Medical Records Department [address] [place] [address] Discharge Instruction 11/20/14828 MR#: [id number] Acct: [id number] Name: LASHA SMITH Rep #: [id number] : 1960 53 From: Rob Alexandra DO PCP: Delfina Boyd MD Status: REG ER ED Disposition - Plan for ED Patient: Chief Complaint: Upper Extremity Injury Instructions: ED Contusion, Upper Extremity, ED Shoulder Sprain Prescriptions: Hydrocodone Bitart/Apap 5-325 [Clinton 5/325] 1 - 2 tablet PO Q4H PRN PRN #20 tablet PRN Reason: Pain Referrals: Delfina Boyd MD [Primary Care Provider] - 1 Week if not improving What to do if you have Problems For any increased pain, shortness of breath, bleeding, nausea or vomiting, chest pain, or any unexpected problems, contact your doctor. Call [facility] ([phone]) or report to the closest Emergency Room. Call 911 if necessary. 11/20/14829 <Electronically signed by Rob Alexandra DO> Date [facility] DO [facility] Signature (If Indicated): Date CC: Delfina Carlos Garry Start: 11-20-2014 End: 11-20-2014 Shoulder min 2 Views Comments: See Note; NOTES: [facility] Imaging Services [address] [place] [address] Radiology Report MR#: [id number] Acct: [id number] Name: LASHA SMITH Rep #: [id number] : 1960 53 From: Jm Ware MD PCP: Delfina Boyd MD Status: REG ER Study: Shoulder min 2 Views Date of Exam: 11/20/14 Exam# [id number] Ordering Dr: Rob Alexandra DO STUDY: X-RAY [...] Jm Ware MD at 8:43 EDT Tel [phone], Service support [phone], RAD/Shoulder min 2 Views IMPRESSION: Normal x-ray examination of the shoulder. Electronically Signed: Jm Ware MD at 8:43 EDT Tel [phone], Service support [phone], CC: Delfina Boyd MD; Rob Alexandra DO Booking Clerk: Signed Breanna Castañeda Start: 05-19-2014 End: 05-20-2014 Spine Lumbar without Contrast Comments: See Note; NOTES: [facility] Imaging Services [address] [place] [address] CAT Scan Report MR#: [id number] Acct: [id number] Name: LASHA SMITH Rep #: [id number] : 1960 M 53 From: Carlos Eduardo Gómez MD PCP: Delfina Boyd MD Status: REG CLI Study: Spine Lumbar without Contrast Date of Exam: 05/19/14 Exam# [id number] Ordering Dr: Etienne Thibodeaux MD STUDY: CT [...] at 1:00 EST Tel , Service support [phone], CC: Delfina Boyd MD; Etienne Thibodeaux MD Booking Clerk: Signed Breanna Castañeda Start: 05-15-2014 End: 04-24-2015 [...] 12-06-2013 Hepatobilliary Imaging Comments: See Note; NOTES: [facility] Imaging Services [address] [place] [address] Nuclear Medicine Report MR#: [id number] Acct: [id number] Name: LASHA SMITH Rep #: [id number] : 1960 M 53 From: Jossue De Dios DO PCP: Delfina Boyd MD Status: REG CLI Study: Hepatobilliary Imaging Date of Exam: 12/06/13 Exam# [id number] Ordering Dr: Breanna Castañeda CLINICAL: 53-year-old male [...] De Dios DO at 22:25 EDT Tel [phone], Service support [phone], CLINICAL: 53-year-old male with reported history of [...] cystic duct syndrome) to be low. (Candace Fischer al, Journal of Nuclear Medicine 32:1695, 1990). Electronically Signed: Jossue De Dios DO at 22:26 EDT Tel [phone], Service support [phone], CC: Breanna Castañeda; Delfina Boyd MD Booking Clerk: Signed Breanna Castañeda Work Phone: Start: 12-06-2013 End: 12-06-2013 Gallbladder Comments: See Note; NOTES: [facility] Imaging Services [address] [place] [address] Ultrasound Report MR#: [id number] Acct: [id number] Name: LASHA SMITH Rep #: [id number] : 1960 M 53 From: Jm Ware MD PCP: Delfina Boyd MD Status: REG CLI Study: Gallbladder Date of Exam: 12/06/13 Exam# [id number] Ordering Dr: Breanna Castañeda STUDY: ABDOMINAL ULTRASOUND [...] Jm Ware MD at 9:42 EDT Tel [phone], Service support [phone], CC: Breanna Castañeda; Delfina Boyd MD Booking Clerk: Signed Breanna Castañeda Work Phone: Start: 10-21-2013 End: 10-21-2013 Spine Lumbar without Contrast Comments: See Note; NOTES: [facility] Imaging Services [address] [place] [address] CAT Scan Report MR#: [id number] Acct: [id number] Name: LASHA SMITH Rep #: [id number] : 1960 M 52 From: Jm Ware MD PCP: Delfina Boyd MD Status: REG CLI Study: Spine Lumbar without Contrast Date of Exam: 10/21/13 Exam# [id number] Ordering Dr: Etienne Thibodeaux MD STUDY: CT [...] Jm Ware MD at 14:10 EDT Tel [phone], Service support [phone], CC: Delfina Boyd MD; Etienne Thibodeaux MD Booking Clerk: Signed Breanna Castañeda 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 Thibodeaux muliptle knee surgeries Morg an Grayson muliptle [...] Start: 12-07-2022 Influenza vaccination LUNG CANCER SCREENING [facility] Start: 08-27-2022 Laparoscopic appendectomy Laparoscopic, Appendectomy (Not Applicable) [facility] Start: 05-16-2022 Patient Education [facility]; [...] Phone: Start: 02-06-2022 Influenza vaccination INFLUENZA (#1) [facility] Start: 11-13-2021 Procedure Education [facility]; [...] VACCINE (4 - Booster for Moderna series) [facility] Start: 08-09-2021 Procedure Education [facility]; [facility] Work Phone: Start: 08-09-2021 Provider Instructions for Treatment [facility]; [facility] Work Phone: Start: 06-21-2021 COVID-19 VACCINE (4 - Booster for Moderna series) COVID-19 VACCINE (4 - Booster for Moderna series) [facility] Start: 06-08-2021 DEPRESSION ASSESSMENT DEPRESSION ASSESSMENT [facility] Start: 05-10-2021 Procedure Education [facility]; [facility] Work Phone: Start: 05-10-2021 Provider Instructions for Treatment [facility]; [facility] Work Phone: Start: 09-19-2020 Procedure Education [facility]; [facility] Work Phone: Start: 09-19-2020 Provider Instructions for Treatment [facility]; [facility] Work Phone: Start: 09-19-2020 Comprehensive metabolic panel Metabolic Panel, Comprehensive (18426) [facility]; [facility] Work Phone: Start: 09-19-2020 TSH Qn TSH (THYROID STIMULATING HORMONE) (30690) [facility]; [facility] Work Phone: Start: 09-19-2020 Blood count complete automated CBC & PLATELETS (AUTO) (13774) [facility]; [facility] Work Phone: Start: 09-19-2020 Lipid panel LIPID PANEL (11961) [facility]; [facility] Work [...] Work Phone: Start: 05-21-2020 TSH Qn TSH (06595) [facility]; [facility] Work Phone: Comment on above: August 2020 Start: 05-21-2020 Blood count complete auto&auto difrntl wbc [facility]; [facility] Work Phone: Comment on above: August 2020 Start: 05-21-2020 Comprehensive metabolic panel [facility]; [facility] Work Phone: Comment on above: August 2020 Start: 05-21-2020 HbA1c (Bld) [Mass fraction] HGB A1C (13161) [facility]; [facility] Work [...] 02-06-2020 Urine albumin quantitative MICROALBUMIN: CREATININE RATIO (93386) AND (58888) [facility] Work Phone: Start: 02-06-2020 TSH Qn [facility] Work Phone: Start: 02-06-2020 Blood count complete auto&auto difrntl wbc CBC, Platelets & Auto Diff (74016) [facility] Work Phone: Start: 02-06-2020 Comprehensive metabolic panel Metabolic Panel, Comprehensive (69826) [facility] Work Phone: Start: 02-06-2020 Lipid panel LIPID PANEL (44968) [facility] Work Phone: Start: 11-04-2019 Procedure Education [facility] Work Phone: Start: 11-04-2019 Provider Instructions for Treatment [facility] Work Phone: Start: 11-04-2019 Assay of thyroid stimulating hormone tsh [facility]; [facility] Work Phone: Start: 11-04-2019 TSH Qn TSH (79812) [facility] Work Phone: Comment on [...] 07-05-2019 TSH Qn TSH (THYROID STIMULATING HORMONE) (75895) [facility] Work Phone: Start: 07-05-2019 [...] Protein mass conc PSA (PROSTATE SPECIFIC ANTIGEN) (48911) [facility] Work Phone: Comment on [...] Medicine Work Phone: Start: 01-17-2017 Colonoscopy COLONOSCOPY [facility] Start: 01-17-2017 COLORECTAL CANCER SCREENING COLORECTAL CANCER SCREENING [facility] Start: 12-26-2016 End: 12-26-2016 Appointment Appointment [facility] Work Phone: Start: 12-26-2016 End: 12-26-2016 Bacterica wound culture *Culture and Sensitivity, wound [facility] Work Phone: Start: 12-26-2016 End: 12-26-2016 Drainage of skin abscess Incision & Drainage Abscess Simple/Single [facility] Work Phone: Start: 10-29-2016 Hepatitis B surface antibody level LDL CHOLESTEROL [facility] Start: 05-14-2016 Procedure Education [facility] [...] 05-12-2016 *Hepatic Function Panel *Hepatic Function Panel [facility] Work Phone: Start: 05-12-2016 End: 11-04-2016 MUMTAZ PANDYA [facility] Work Phone: Start: 05-12-2016 End: 11-04-2016 Follow Up Appt 6 months Follow Up Appt 6 months [facility] Work Phone: Start: 05-12-2016 End: 05-12-2016 Lipid panel [AGGREGATE] *Lipid Profile CC PCP [facility] Work Phone: Start: 01-15-2016 Procedure Education [facility] Work Phone: Start: 01-15-2016 Provider Instructions for Treatment [facility] Work Phone: Start: 01-15-2016 25 hydroxy includes fractions if performed [facility] Work Phone: Start: 01-15-2016 Cobalamin (Vitamin B12) mass conc VITAMIN B12 AND FOLATES (88274) [facility] Work Phone: Start: 01-15-2016 [...] Phone: Start: 10-30-2015 End: 10-30-2015 DJN DJN [facility] Work Phone: Start: 10-30-2015 End: 10-30-2015 Follow Up Appt 6 months Follow Up Appt 6 months [facility] Work Phone: Start: 10-15-2015 Urine albumin quantitative [facility] Work Phone: Start: 10-15-2015 Comprehensive metabolic panel [facility] Work Phone: Start: 10-15-2015 Lipid panel [facility] Work Phone: Start: 10-15-2015 Blood count manual cell count each [facility] Work Phone: Start: 09-20-2015 End: 10-30-2015 *Hepatic Function Panel *Hepatic Function Panel [facility] Work Phone: Start: 09-20-2015 End: 10-30-2015 Lipid panel [AGGREGATE] *Lipid Profile CC PCP [facility] Work Phone: Start: 08-16-2015 Lipid panel [facility] Work Phone: Comment on above: recheck in 6 weeks fax a copy to Dr. Huan robles Start: 08-06-2015 Hemoglobin A1c/Hemoglobin.total mass fraction (Bld) HGB A1C (09697) [facility] Work Phone: Start: 08-06-2015 Hemoglobin glycosylated a1c [facility] Work Phone: Start: 07-16-2015 Patient Education [facility] Work Phone: Start: 07-16-2015 Procedure Education [facility] Work Phone: Start: 04-24-2015 End: 04-24-2015 MUMTAZ PANDYA [facility] Work Phone: Start: 04-24-2015 End: 04-24-2015 Follow Up Appt 1 year Follow Up Appt 1 year [facility] Work Phone: Start: 04-24-2015 End: 08-07-2015 Lipid panel [AGGREGATE] *Lipid Profile CC PCP [facility] Work Phone: Start: 03-26-2015 Procedure Education [facility] Work Phone: Start: 05-15-2014 End: 04-24-2015 Lipid panel [AGGREGATE] *Lipid Profile CC PCP [facility] Work Phone: Start: 04-04-2014 End: 04-24-2015 *Hepatic Function Panel *Hepatic Function Panel [facility] Work Phone: Start: 04-04-2014 End: 04-04-2014 MUMTAZ PANDYA [facility] Work Phone: Start: 04-04-2014 End: 04-04-2014 Follow Up Appt 1 year Follow Up Appt 1 year [facility] Work Phone: Start: 03-16-2014 Provider Instructions for Treatment [facility] Work Phone: Start: 12-14-2013 ALP enzyme act/vol ALKALINE PHOSPHATASE (05369) [facility] Work Phone: Start: 12-14-2013 Assay of phosphatase alkaline [facility]; [facility] Work Phone: Start: 12-13-2013 Provider Instructions for Treatment [facility] Work Phone: Start: 12-13-2013 Lipid panel [facility] Work Phone: Start: 11-29-2013 Provider Instructions for Treatment [facility] Work Phone: Start: 2013 PROSTATE CANCER SCREENING DISCUSSION PROSTATE CANCER SCREENING DISCUSSION [facility] Start: 11-07-2013 Provider Instructions for Treatment Comprehensive [...] mass fraction (Bld) Hemoglobin Glyclated (HGB A1C) (54831) [facility] Work Phone: Start: 03-29-2012 [...] of 2) SHINGRIX VACCINE (1 of 2) [facility] Start: 08-23-2008 Provider Instructions for Treatment Comprehensive [...] Work Phone: Start: 01-07-2007 Thyrotropin Qn TSH (03897) [facility] Work Phone: Start: 12-16-2006 [...] Phone: Start: 11-28-2003 COLOGUARD (FIT-DNA) COLOGUARD (FIT-DNA) [facility] Start: 11-28-[address] COLONOGRAPHY [facility] Start: 11-28-2003 FECAL OCCULT BLOOD FECAL OCCULT BLOOD [facility] Start: 11-28-2003 SIGMOIDOSCOPY SIGMOIDOSCOPY [facility] Start: 1977 Urine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 Indication:Diabetes mellitus type 2, uncontrolled (Renamed from Uncontrolled type 2 diabetes mellitus) Start:13-Nov-2021 Instruction Type:Patient Education Patient Instructions Indication:Diabetes mellitus type 2, uncontrolled (Renamed from Uncontrolled type 2 diabetes mellitus) Start:09-Aug-2021 Instruction Type:Provider Instructions for Treatment How to Access Health Informa tion Online using Patient Portal and [employer] Apps Indication:Diabetes mellitus type 2, uncontrolled (Renamed from Uncontrolled type 2 diabetes mellitus) Start:09-Aug-2021 Instruction Type:Patient Education DISCONTINUED - CBC, PLATELET S & AUT DIFF (15592) Indication:Diabetes mellitus type 2, uncontrolled (Renamed from Uncontrolled type 2 diabetes mellitus) Start:10-May-2021 Instruction Type:Patient Education Patient Instructions Indication:Nonsmoker Start:10-May-2021 Instruction Type:Provider Instructions for Treatment How to Access Health Informa tion Online using Patient Portal and 3rd [employer] Apps Indication:Nonsmoker Start:10-May-2021 Instruction Type:Patient Education Patient Instructions Indication:BMI 35.0-35.9,adult Start:19-Sep-2020 Instruction Type:Provider Instructions for Treatment How to Access Health Informa tion Online using Patient Portal and 3rd [employer] Apps Indication:Diabetes mellitus type 2, uncontrolled (Renamed from Uncontrolled type 2 diabetes mellitus) Start:19-Sep-2020 Instruction Type:Patient Education Patient Instructions come in fasting in August a week before your next apt. Indication:BMI 34.0-34.9,adult Start:21-May-2020 Instruction Type:Provider Instructions for Treatment How to Access Health Informa tion Online using Patient Portal and 3rd [employer] Apps Indication:BMI 34.0-34.9,adult Start:21-May-2020 Instruction Type:Patient [...] Informa tion Online using Patient Portal and [employer] Apps Indication:Diabetes mellitus type 2, uncontrolled (Renamed from Uncontrolled type 2 diabetes mellitus) Start:13-Nov-2021 Instruction Type:Patient Education Patient Instructions Indication:Diabetes mellitus type 2, uncontrolled (Renamed from Uncontrolled type 2 diabetes mellitus) Start:09-Aug-2021 Instruction Type:Provider Instructions for Treatment How to Access Health Informa tion Online using Patient Portal and [employer] Apps Indication:Diabetes mellitus type 2, uncontrolled (Renamed from Uncontrolled type 2 diabetes mellitus) Start:09-Aug-2021 Instruction Type:Patient Education DISCONTINUED - CBC, PLATELET S & AUT DIFF (52379) Indication:Diabetes mellitus type 2, uncontrolled (Renamed from Uncontrolled type 2 diabetes mellitus) Start:10-May-2021 Instruction Type:Patient Education Patient Instructions Indication:Nonsmoker Start:10-May-2021 Instruction Type:Provider Instructions for Treatment How to Access Health Informa tion Online using Patient Portal and 3rd [employer] Apps Indication:Nonsmoker Start:10-May-2021 Instruction Type:Patient Education Patient Instructions Indication:BMI 35.0-35.9,adult Start:19-Sep-2020 Instruction Type:Provider Instructions for Treatment How to Access Health Informa tion Online using Patient Portal and 3rd [employer] Apps Indication:Diabetes mellitus type 2, uncontrolled (Renamed from Uncontrolled type 2 diabetes mellitus) Start:19-Sep-2020 Instruction Type:Patient Education Patient Instructions come in fasting in August a week before your next apt. Indication:BMI 34.0-34.9,adult Start:21-May-2020 Instruction Type:Provider Instructions for Treatment How to Access Health Informa tion Online using Patient Portal and 3rd [employer] Apps Indication:BMI 34.0-34.9,adult Start:21-May-2020 Instruction Type:Patient [...] tion Online using Patient Portal and [employer]rd [employer] Apps Indication:Uncontrolled type 2 diabetes mellitus with hyperglycemia Start:14-Feb-2022 Instruction Type:Patient Education Patient Instructions Indication:Uncontrolled type 2 diabetes mellitus with hyperglycemia Start:14-Feb-2022 Instruction Type:Provider Instructions for Treatment Patient Instructions Indication:Diabetes mellitus type 2, uncontrolled (Renamed from Uncontrolled type 2 diabetes mellitus) Start:13-Nov-2021 Instruction Type:Provider Instructions for Treatment How to Access Health Informa tion Online using Patient Portal and 3rd [employer] Apps Indication:Diabetes mellitus type 2, uncontrolled (Renamed from Uncontrolled type 2 diabetes mellitus) Start:13-Nov-2021 Instruction Type:Patient Education Patient Instructions Indication:Diabetes mellitus type 2, uncontrolled (Renamed from Uncontrolled type 2 diabetes mellitus) Start:09-Aug-2021 Instruction Type:Provider Instructions for Treatment How to Access Health Informa tion Online using Patient Portal and 3rd [employer] Apps Indication:Diabetes mellitus type 2, uncontrolled (Renamed from Uncontrolled type 2 diabetes mellitus) Start:09-Aug-2021 Instruction Type:Patient Education DISCONTINUED - CBC, PLATELET S & AUT DIFF (13012) Indication:Diabetes mellitus type 2, uncontrolled (Renamed from Uncontrolled type 2 diabetes mellitus) Start:10-May-2021 Instruction Type:Patient Education Patient Instructions Indication:Nonsmoker Start:10-May-2021 Instruction Type:Provider Instructions for Treatment How to Access Health Informa tion Online using Patient Portal and [employer]rd [employer] Apps Indication:Nonsmoker Start:10-May-2021 Instruction Type:Patient Education Patient Instructions Indication:BMI 35.0-35.9,adult Start:19-Sep-2020 Instruction Type:Provider Instructions for Treatment How to Access Health Informa tion Online using Patient Portal and 3rd [employer] Apps Indication:Diabetes mellitus type 2, uncontrolled (Renamed from Uncontrolled type 2 diabetes mellitus) Start:19-Sep-2020 Instruction Type:Patient Education Patient Instructions come in fasting in August a week before your next apt. Indication:BMI 34.0-34.9,adult Start:21-May-2020 Instruction Type:Provider Instructions for Treatment How to Access Health Informa tion Online using Patient Portal and 3rd [employer] Apps Indication:BMI 34.0-34.9,adult Start:21-May-2020 Instruction Type:Patient [...] Informa tion Online using Patient Portal and [employer] Apps Indication:BMI 36.0-36.9,adult Start:16-May-2022 Instruction Type:Patient Education Smoking Cessation Indication:Current every day smoker Start:14-Feb-2022 Instruction Type:Patient Education How to Access Health Informa tion Online using Patient Portal and [employer] Apps Indication:Uncontrolled type 2 diabetes mellitus with hyperglycemia Start:14-Feb-2022 Instruction Type:Patient Education Patient Instructions Indication:Uncontrolled type 2 diabetes mellitus with hyperglycemia Start:14-Feb-2022 Instruction Type:Provider Instructions for Treatment Patient Instructions Indication:Diabetes mellitus type 2, uncontrolled (Renamed from Uncontrolled type 2 diabetes mellitus) Start:13-Nov-2021 Instruction Type:Provider Instructions for Treatment How to Access Health Informa tion Online using Patient Portal and [employer] Apps Indication:Diabetes mellitus type 2, uncontrolled (Renamed from Uncontrolled type 2 diabetes mellitus) Start:13-Nov-2021 Instruction Type:Patient Education Patient Instructions Indication:Diabetes mellitus type 2, uncontrolled (Renamed from Uncontrolled type 2 diabetes mellitus) Start:09-Aug-2021 Instruction Type:Provider Instructions for Treatment How to Access Health Informa tion Online using Patient Portal and [employer] Indication:Diabetes mellitus type 2, uncontrolled (Renamed from Uncontrolled type 2 diabetes mellitus) Start:09-Aug-2021 Instruction Type:Patient Education DISCONTINUED - CBC, PLATELET S & AUT DIFF (30913) Indication:Diabetes mellitus type 2, uncontrolled (Renamed from Uncontrolled type 2 diabetes mellitus) Start:10-May-2021 Instruction Type:Patient Education Patient Instructions Indication:Nonsmoker Start:10-May-2021 Instruction Type:Provider Instructions for Treatment How to Access Health Informa tion Online using Patient Portal and [employer] Indication:Nonsmoker Start:10-May-2021 Instruction Type:Patient Education Patient Instructions Indication:BMI 35.0-35.9,adult Start:19-Sep-2020 Instruction Type:Provider Instructions for Treatment How to Access Health Informa tion Online using Patient Portal and [employer] Indication:Diabetes mellitus type 2, uncontrolled (Renamed from Uncontrolled type 2 diabetes mellitus) Start:19-Sep-2020 Instruction Type:Patient Education Patient Instructions come in fasting in August a week before your next apt. Indication:BMI 34.0-34.9,adult Start:21-May-2020 Instruction Type:Provider Instructions for Treatment How to Access Health Informa tion Online using Patient Portal and [employer] Indication:BMI 34.0-34.9,adult Start:21-May-2020 Instruction Type:Patient [...] tion Online using Patient Portal and [employer] Indication:BMI 36.0-36.9,adult Start:16-May-2022 Instruction Type:Patient Education Smoking Cessation Indication:Current every day smoker Start:14-Feb-2022 Instruction Type:Patient Education How to Access Health Informa tion Online using Patient Portal and [employer] Indication:Uncontrolled type 2 diabetes mellitus with hyperglycemia Start:14-Feb-2022 Instruction Type:Patient Education Patient Instructions Indication:Uncontrolled type 2 diabetes mellitus with hyperglycemia Start:14-Feb-2022 Instruction Type:Provider Instructions for Treatment Patient Instructions Indication:Diabetes mellitus type 2, uncontrolled (Renamed from Uncontrolled type 2 diabetes mellitus) Start:13-Nov-2021 Instruction Type:Provider Instructions for Treatment How to Access Health Informa tion Online using Patient Portal and [employer] Indication:Diabetes mellitus type 2, uncontrolled (Renamed from Uncontrolled type 2 diabetes mellitus) Start:13-Nov-2021 Instruction Type:Patient Education Patient Instructions Indication:Diabetes mellitus type 2, uncontrolled (Renamed from Uncontrolled type 2 diabetes mellitus) Start:09-Aug-2021 Instruction Type:Provider Instructions for Treatment How to Access Health Informa tion Online using Patient Portal and [employer] Indication:Diabetes mellitus type 2, uncontrolled (Renamed from Uncontrolled type 2 diabetes mellitus) Start:09-Aug-2021 Instruction Type:Patient Education DISCONTINUED - CBC, PLATELET S & AUT DIFF (23808) Indication:Diabetes mellitus type 2, uncontrolled (Renamed from Uncontrolled type 2 diabetes mellitus) Start:10-May-2021 Instruction Type:Patient Education Patient Instructions Indication:Nonsmoker Start:10-May-2021 Instruction Type:Provider Instructions for Treatment How to Access Health Informa tion Online using Patient Portal and [employer] Indication:Nonsmoker Start:10-May-2021 Instruction Type:Patient Education Patient Instructions Indication:BMI 35.0-35.9,adult Start:19-Sep-2020 Instruction Type:Provider Instructions for Treatment How to Access Health Informa tion Online using Patient Portal and [employer] Indication:Diabetes mellitus type 2, uncontrolled (Renamed from Uncontrolled type 2 diabetes mellitus) Start:19-Sep-2020 Instruction Type:Patient Education Patient Instructions come in fasting in August a week before your next apt. Indication:BMI 34.0-34.9,adult Start:21-May-2020 Instruction Type:Provider Instructions for Treatment How to Access Health Informa tion Online using Patient Portal and [employer] Indication:BMI 34.0-34.9,adult Start:21-May-2020 Instruction Type:Patient [...] Informa tion Online using Patient Portal and [employer] Indication:BMI 36.0-36.9,adult Start:16-May-2022 Instruction Type:Patient Education Smoking Cessation Indication:Current every day smoker Start:14-Feb-2022 Instruction Type:Patient Education How to Access Health Informa tion Online using Patient Portal and [employer] Indication:Uncontrolled type 2 diabetes mellitus with hyperglycemia Start:14-Feb-2022 Instruction Type:Patient Education Patient Instructions Indication:Uncontrolled type 2 diabetes mellitus with hyperglycemia Start:14-Feb-2022 Instruction Type:Provider Instructions for Treatment Patient Instructions Indication:Diabetes mellitus type 2, uncontrolled (Renamed from Uncontrolled type 2 diabetes mellitus) Start:13-Nov-2021 Instruction Type:Provider Instructions for Treatment How to Access Health Informa tion Online using Patient Portal and [employer] Indication:Diabetes mellitus type 2, uncontrolled (Renamed from Uncontrolled type 2 diabetes mellitus) Start:13-Nov-2021 Instruction Type:Patient Education Patient Instructions Indication:Diabetes mellitus type 2, uncontrolled (Renamed from Uncontrolled type 2 diabetes mellitus) Start:09-Aug-2021 Instruction Type:Provider Instructions for Treatment How to Access Health Informa tion Online using Patient Portal and [employer] Indication:Diabetes mellitus type 2, uncontrolled (Renamed from Uncontrolled type 2 diabetes mellitus) Start:09-Aug-2021 Instruction Type:Patient Education DISCONTINUED - CBC, PLATELET S & AUT DIFF (82126) Indication:Diabetes mellitus type 2, uncontrolled (Renamed from Uncontrolled type 2 diabetes mellitus) Start:10-May-2021 Instruction Type:Patient Education Patient Instructions Indication:Nonsmoker Start:10-May-2021 Instruction Type:Provider Instructions for Treatment How to Access Health Informa tion Online using Patient Portal and [employer] Indication:Nonsmoker Start:10-May-2021 Instruction Type:Patient Education Patient Instructions Indication:BMI 35.0-35.9,adult Start:19-Sep-2020 Instruction Type:Provider Instructions for Treatment How to Access Health Informa tion Online using Patient Portal and [employer] Indication:Diabetes mellitus type 2, uncontrolled (Renamed from Uncontrolled type 2 diabetes mellitus) Start:19-Sep-2020 Instruction Type:Patient Education Patient Instructions come in fasting in August a week before your next apt. Indication:BMI 34.0-34.9,adult Start:21-May-2020 Instruction Type:Provider Instructions for Treatment How to Access Health Informa tion Online using Patient Portal and [employer] Indication:BMI 34.0-34.9,adult Start:21-May-2020 Instruction Type:Patient [...] tion Online using Patient Portal and [employer] Indication:BMI 36.0-36.9,adult Start:16-May-2022 Instruction Type:Patient Education Smoking Cessation Indication:Current every day smoker Start:14-Feb-2022 Instruction Type:Patient Education How to Access Health Informa tion Online using Patient Portal and [employer] Indication:Uncontrolled type 2 diabetes mellitus with hyperglycemia Start:14-Feb-2022 Instruction Type:Patient Education Patient Instructions Indication:Uncontrolled type 2 diabetes mellitus with hyperglycemia Start:14-Feb-2022 Instruction Type:Provider Instructions for Treatment Patient Instructions Indication:Diabetes mellitus type 2, uncontrolled (Renamed from Uncontrolled type 2 diabetes mellitus) Start:13-Nov-2021 Instruction Type:Provider Instructions for Treatment How to Access Health Informa tion Online using Patient Portal and [employer] Indication:Diabetes mellitus type 2, uncontrolled (Renamed from Uncontrolled type 2 diabetes mellitus) Start:13-Nov-2021 Instruction Type:Patient Education Patient Instructions Indication:Diabetes mellitus type 2, uncontrolled (Renamed from Uncontrolled type 2 diabetes mellitus) Start:09-Aug-2021 Instruction Type:Provider Instructions for Treatment How to Access Health Informa tion Online using Patient Portal and [employer] Indication:Diabetes mellitus type 2, uncontrolled (Renamed from Uncontrolled type 2 diabetes mellitus) Start:09-Aug-2021 Instruction Type:Patient Education DISCONTINUED - CBC, PLATELET S & AUT DIFF (37188) Indication:Diabetes mellitus type 2, uncontrolled (Renamed from Uncontrolled type 2 diabetes mellitus) Start:10-May-2021 Instruction Type:Patient Education Patient Instructions Indication:Nonsmoker Start:10-May-2021 Instruction Type:Provider Instructions for Treatment How to Access Health Informa tion Online using Patient Portal and [employer] Indication:Nonsmoker Start:10-May-2021 Instruction Type:Patient Education Patient Instructions Indication:BMI 35.0-35.9,adult Start:19-Sep-2020 Instruction Type:Provider Instructions for Treatment How to Access Health Informa tion Online using Patient Portal and [employer] Indication:Diabetes mellitus type 2, uncontrolled (Renamed from Uncontrolled type 2 diabetes mellitus) Start:19-Sep-2020 Instruction Type:Patient Education Patient Instructions come in fasting in August a week before your next apt. Indication:BMI 34.0-34.9,adult Start:21-May-2020 Instruction Type:Provider Instructions for Treatment How to Access Health Informa tion Online using Patient Portal and [employer] Indication:BMI 34.0-34.9,adult Start:21-May-2020 Instruction Type:Patient [...] tion Online using Patient Portal and [employer] Indication:BMI 36.0-36.9,adult Start:16-May-2022 Instruction Type:Patient Education Smoking Cessation Indication:Current every day smoker Start:14-Feb-2022 Instruction Type:Patient Education How to Access Health Informa tion Online using Patient Portal and [employer] Indication:Uncontrolled type 2 diabetes mellitus with hyperglycemia Start:14-Feb-2022 Instruction Type:Patient Education Patient Instructions Indication:Uncontrolled type 2 diabetes mellitus with hyperglycemia Start:14-Feb-2022 Instruction Type:Provider Instructions for Treatment Patient Instructions Indication:Diabetes mellitus type 2, uncontrolled (Renamed from Uncontrolled type 2 diabetes mellitus) Start:13-Nov-2021 Instruction Type:Provider Instructions for Treatment How to Access Health Informa tion Online using Patient Portal and [employer] Indication:Diabetes mellitus type 2, uncontrolled (Renamed from Uncontrolled type 2 diabetes mellitus) Start:13-Nov-2021 Instruction Type:Patient Education Patient Instructions Indication:Diabetes mellitus type 2, uncontrolled (Renamed from Uncontrolled type 2 diabetes mellitus) Start:09-Aug-2021 Instruction Type:Provider Instructions for Treatment How to Access Health Informa tion Online using Patient Portal and [employer] Indication:Diabetes mellitus type 2, uncontrolled (Renamed from Uncontrolled type 2 diabetes mellitus) Start:09-Aug-2021 Instruction Type:Patient Education DISCONTINUED - CBC, PLATELET S & AUT DIFF (71705) Indication:Diabetes mellitus type 2, uncontrolled (Renamed from Uncontrolled type 2 diabetes mellitus) Start:10-May-2021 Instruction Type:Patient Education Patient Instructions Indication:Nonsmoker Start:10-May-2021 Instruction Type:Provider Instructions for Treatment How to Access Health Informa tion Online using Patient Portal and [employer] Indication:Nonsmoker Start:10-May-2021 Instruction Type:Patient Education Patient Instructions Indication:BMI 35.0-35.9,adult Start:19-Sep-2020 Instruction Type:Provider Instructions for Treatment How to Access Health Informa tion Online using Patient Portal and [employer] Indication:Diabetes mellitus type 2, uncontrolled (Renamed from Uncontrolled type 2 diabetes mellitus) Start:19-Sep-2020 Instruction Type:Patient Education Patient Instructions come in fasting in August a week before your next apt. Indication:BMI 34.0-34.9,adult Start:21-May-2020 Instruction Type:Provider Instructions for Treatment How to Access Health Informa tion Online using Patient Portal and [employer] Indication:BMI 34.0-34.9,adult Start:21-May-2020 Instruction Type:Patient [...] Start:04-Jun-2015 Instruction Type:Patient Education How to access [employer] online - Detail Indication:Syncope and collapse Start:04-Jun-2015 [...] VIEWS Bao Peralta MD [address] [place] [id number] Xr Imaging Referral ID Status Reason Start Date Expiration Date Visits Requested Visits Authorized [id number] Pending Review Auto-Generat ed Referral 12/18/2021 01/17/2023 1 1 [facility] for referral (narrative)* Diagnostic Procedure Only (Routine) - Pending Review Specialty Diagnoses / Procedures Referred By Karen roman Referred To Contact XR IMAGING Diagnoses Closed displaced oblique fracture of shaft of right tibia with routine healing, subsequent encounter Procedures XR TIBIA FIBULA 2V AP/LAT RIGHT RADIOLOGIC EXAMINATION TIBIA & FIBULA 2 VIEWS Bao Peralta MD [address] [place] [address] Xr Imaging Referral ID Status Reason Start Date Expiration Date Visits Requested Visits Authorized [id number] Pending Review Auto-Generat ed Referral 01/22/2022 02/21/2023 1 1 [facility] Family History No Family History Records FoundUnknown [...] Name Dates Details How to access health [employer] online Indication:Diabetes mellitus type 2, uncontrolled (Renamed [...] for Treatment How to access health informa [employer] online Indication:Current smoker Start:23-Aug-2019 Instruction Type:Patient Education [...] tion Online using Patient Portal and [employer] Indication:BMI 34.0-34.9,adult Start:21-May-2020 Instruction Type:Patient [...] tion Online using Patient Portal and [employer] Indication:Diabetes mellitus type 2, uncontrolled (Renamed from Uncontrolled type 2 diabetes mellitus) Start:19-Sep-2020 Instruction Type:Patient Education Patient Instructions come in fasting in August a week before your next apt. Indication:BMI 34.0-34.9,adult Start:21-May-2020 Instruction Type:Provider Instructions for Treatment How to Access Health Informa tion Online using Patient Portal and [employer] Indication:BMI 34.0-34.9,adult Start:21-May-2020 Instruction Type:Patient [...] Informa tion Online using Patient Portal and [employer] Indication:Diabetes mellitus type 2, uncontrolled (Renamed from Uncontrolled type 2 diabetes mellitus) Start:19-Sep-2020 Instruction Type:Patient Education Patient Instructions come in fasting in August a week before your next apt. Indication:BMI 34.0-34.9,adult Start:21-May-2020 Instruction Type:Provider Instructions for Treatment How to Access Health Informa tion Online using Patient Portal and [employer] Indication:BMI 34.0-34.9,adult Start:21-May-2020 Instruction Type:Patient [...] Records Found Name Dates Details Immunization Registry [place] - Effective on 09/19/2020. Expiration date unspecified Effective:19-Sep-2020 Name Dates Details Immunization Registry [place] - Effective on 09/19/2020. Expiration date unspecified Effective:19-Sep-2020 Name Dates Details Immunization Registry [place] - Effective on 09/19/2020. Expiration date unspecified Effective:19-Sep-2020 Name Dates Details Immunization Registry [place] - Effective on 09/19/2020. Expiration date unspecified Effective:19-Sep-2020 Name Dates Details Immunization Registry [place] - Effective on 09/19/2020. 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 Expiration date unspecified Effective:19-Sep-2020 Name Dates Details Immunization Registry [place] - Effective on 09/19/2020. Expiration date unspecified Effective:19-Sep-2020 Name Dates Details Immunization Registry [place] - Effective on 09/19/2020. Expiration date unspecified Effective:19-Sep-2020 Name Dates Details Immunization Registry [place] - Effective on 09/19/2020. Expiration date unspecified Effective:19-Sep-2020 Name Dates Details Immunization Registry [place] - Effective on 09/19/2020. Expiration date unspecified Effective:19-Sep-2020 Advance Directive Response Recorded Date/ Time Advance Directives No November 07 11:02am Living Will No August 27, 2022 3:26am Power of Director Independent No August 27 3:26am Name Dates Details Immunization Registry [place] - Effective on 09/19/2020. Expiration date unspecified [...] or prosecute any alcohol or drug abuse patient.[facility] the event this information is protected by the Federal Confidentiality of Alcohol and Drug Abuse Patient Records regulations: The Federal rules restrict any use of the information to criminally investigate or prosecute any alcohol or drug abuse patient.[facility] System[facility] the event this information is protected by the Federal Confidentiality of Alcohol and Drug Abuse Patient Records regulations: The Federal rules restrict any use of the information to criminally investigate or prosecute any alcohol or drug abuse patient.[facility] System[facility] the event this information is protected by the Federal Confidentiality of Alcohol and Drug Abuse Patient Records regulations: The Federal rules restrict any use of the information to criminally investigate or prosecute any alcohol or drug abuse patient.[facility] the event this information is protected by the Federal Confidentiality of Alcohol and Drug Abuse Patient Records regulations: The Federal rules restrict any use of the information to criminally investigate or prosecute any alcohol or drug abuse patient.[facility] System[facility] the event this information is protected by the Federal Confidentiality of Alcohol and Drug Abuse Patient Records regulations: The Federal rules restrict any use of the information to criminally investigate or prosecute any alcohol or drug abuse patient.[facility] Reason for Visit (unrecogniz ed section and content) Reason Comments Surgical Followup Reason Comments Follow Up Phone Call Post Discharge F/U attempt made. No answer. Reason Comments Follow Up Pain Specialty Diagnoses / Procedures Referred By Karen t Referred To Contact ORTHOPAEDIC SURGERY Diagnoses Right leg / Surgery 12.07.2021 Procedures New / PO Follow up Self, MD Delia Floyd [address] [place] [address] Referral ID Status Reason Start Date Expiration Date Visits Requested Visits Authorized [id number] Outside PCP Financial Clearance Required - Accident 12/11/2021 03/11/2022 1 1 Reason Comments Post Op Pain Swelling Pain Pain with activity Reason Comments Schedule Surgery Reason Comments Follow Up Care Teams (unrecognized sec tion and content) Credit Collections Rep Relationship Specialty Start Date End Date Delfina Boyd MD PCP - General Internal Medicine 10/15/15 Credit Collections Rep Relationship Specialty Start Date End Date Delfina Boyd MD PCP - General Internal Medicine 10/15/15 Credit Collections Rep Relationship Specialty Start Date End Date Delfina Boyd MD PCP - General Internal Medicine 10/15/15 Credit Collections Rep Relationship Specialty Start Date End Date Delfina Boyd MD PCP - General Internal Medicine 10/15/15 Credit Collections Rep Relationship Specialty Start Date End Date Delfina Boyd MD PCP - General Internal Medicine 10/15/15 Credit Collections Rep Relationship Specialty Start Date End Date Delfina Boyd MD PCP - General Internal Medicine 10/15/15 Team Status: Active Member Role Status Dates Breanna Castañeda RONN, [employer] Family Provider Active HARINI Espinoza Primary Care Provider Active Team Status: Active Member Role Status Dates Dr. Garret Mark MD Emergency Provider Active HARINI Espinoza Primary Care Provider Active Dr. Debbi Cramer MD Admit Provider, Attending Pro vider Active (unrecognized sect ion and content) No Status Records FoundNo Status Records FoundNo Status Records FoundNo Status Records Found INFORMATION SOURCE (unrecogn ized section and content) DATE CREATED AUTHOR 12/18/[address] [facility] DATE CREATED AUTHOR AUTHOR'S ORGANIZ ATION 04/11/2022 [facility] DATE CREATED AUTHOR AUTHOR'S ORGANIZ ATION 05/17/2022 [facility] DATE CREATED AUTHOR AUTHOR'S ORGANIZ ATION 04/20/2025 [facility] FOR RECORDS PERTAINING TO PATIENTS [...] BE BASED ON THE PRIMARY CLINICAL RECORDS. [employer] [facility]. provides no warranty or guarantee of the accuracy or completeness of information in this document.
[2025-04-22 21:03] VITALS: BP 145/85; PULSE 100; RESP 16; TEMP 36.4; O2SAT 97; BMI 27.1
--- NOTE | 2025-04-22 21:06 | HP.PCM_ITS ---
HPI - General General Date of Admission: 04/22/25 Date of Service: 04/24/25 Chief Complaint: Here for rehabilitation. HPI Narrative KARL FUNES, is a 64 M who presents with followin04/09/2025 [facility] ED stroke. NIHSS 2. MRI brain showed stroke. 04/12/2025 Admit RU for 3 hours daily rehabilitation. 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 04/13/2025 Trending pulsoximetry, plan sleep study on discharge. 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 ENG outpatient for left parietal mass. 04/14/2025 Stop Elavil, start Tamsulosin 0.4mg daily for urinary retention. 04/17/2025 Add Glipizide XL 5mg daily for Diabetes Mellitus II. Increase Amlodipine to 10mg daily for hypertension. 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 04/18/2025 Lexapro for depression. SSI for Diabetes Mellitus II. 04/19/2025 Increase Glipizide to 7.5mg daily for Diabetes Mellitus II. 04/20/2025 Fluid restriction for hyponatremia. 04/22/2025 Discharge home with home health care. 04/22/2025 [facility] ED with syncope. 04/22/2025 Admit to TCU with debility, here for rehabilitation, strengthening, prior to discharge home alone. 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 YE (obstructive sleep apnea) GERD (gastroesophageal reflux disease) TIA (transient ischemic attack) Tobacco use disorder HTN (hypertension) Hyperlipidemia Home Medications ?Medication ?Instructions ?Recorded ?Last Taken ?Type aspirin 81 mg chewable tablet 81 mg PO BREAKFAST heart health #0 04/12/25 04/12/25 Rx tabs acetaminophen 325 mg tablet 650 mg (2 x 325 mg) PO Q6H PRN PRN 04/21/25 Unknown Rx Pain Score 1-10 #1 TAB amlodipine 10 mg tablet 10 mg PO DAILY Blood pressur e #30 04/21/25 Unknown Rx tabs atorvastatin 80 mg tablet 80 mg PO QHS Cholesterol #30 tabs 04/21/25 Unknown Rx clopidogrel 75 mg tablet 75 mg PO DAILY AFIB #21 tabs 04/21/25 Unknown Rx escitalopram oxalate 20 mg tablet 20 mg PO QHS mental health #30 tabs 04/21/25 Unknown Rx glipizide 2.5 mg tablet, extended 7.5 mg (3 x 2.5 mg) PO BREAKFAST 04/21/25 Unknown Rx release 24 hr Diabetes #30 tabs losartan 100 mg tablet 100 mg PO DAILY blood pressu re #30 04/21/25 Unknown Rx tabs metformin 500 mg tablet 750 mg (1.5 x 500 mg) PO BID CM 04/21/25 Unknown Rx Diabetes #90 tabs nicotine 21 mg/24 hr daily 21 mg transdermal DAILY Smo angel 04/21/25 Unknown Rx transdermal patch cessation #28 ea pantoprazole 40 mg tablet,delayed 40 mg PO DAILY GERD #30 tabs 04/21/25 Unknown Rx release tamsulosin 0.4 mg capsule 0.4 mg PO DAILY@1730 Prostat e #30 04/21/25 Unknown Rx caps Allergy/AdvReac Type Severity Reaction Status Date / Time Sulfa (Sulfonamide Allergy Severe Hives, Verified 04/22/25 15:30 Antibiotics) Sweating, SOB Family History Father CAD (coronary artery disease) Myocardial infarction Hypertension Heart disease Mother Heart disease Atrial arrhythmia Surgical History S/P laparoscopic appendectomy H/O cystoscopy S/P herniorrhaphy history of benign tumor of parotid gland History of brain surgery History of arthroscopy of right knee History of left knee surgery History of lumbar surgery Social History household members: none Smoking Status: Current every day smoker tobacco type: cigarettes alcohol intake: never substance use type: marijuana ROS Constitutional Constitutional: Reports weakness; Denies chills, fever(s) or weight gain ENT HEENT: Denies headache(s), nasal congestion or nasal discharge Cardiovascular Cardiovascular: Denies chest pain or palpitations Respiratory/Chest Respiratory/Chest: Denies cough, excessive phlegm production or shortness of breath with exertion Gastrointestinal Gastrointestinal: Denies abdominal pain, nausea or vomiting Genitourinary Genitourinary: Denies dysuria Musculoskeletal Musculoskeletal: Denies joint pain or joint swelling Integumentary Integumentary: Denies rash or wounds Neurologic Neurologic: Denies focal weakness, numbness or tingling Psychiatric Psychiatric: Denies anxiety, auditory hallucinations, depression, homicidal ideation or suicidal ideation Vital Signs Vital Signs Vital Signs: 04/22/25 21:03 Temperature 97.5 F L Temperature Source Temporal Pulse Rate 100 Respiratory Rate 16 Blood Pressure 145/85 H Blood Pressure Mean 105 Blood Pressure Source Monitor Blood Pressure Position Sitting Blood Pressure Location Left Arm Pulse Ox 97 Oxygen Delivery Method Room Air Weight Weight: 82.1 kg Body Mass Index (BMI) 27.1 Physical Exam Const alert General Appearance: cooperative HEENT normocephalic Eyes PERRL and EOMs intact bilaterally Neck supple, no JVD and no carotid bruits Resp normal respiratory effort, normal air movement and clear to auscultation bilaterally Cardio regular rate and regular rhythm GI normal to inspection, nondistended, normoactive bowel sounds, non-tender and non-distended Extremity normal capillary refill General Extremity: Negative for edema Skin no rashes or lesions noted General Skin Exam: no breakdown Neuro moves all extremities Psych affect normal Appearance: appropriate Results Lab / Micro Data 04/23/25 06:00 04/24/25 05:15 Assessment & Plan Assessment/Plan (1) Debility: (2) CVA (cerebral vascular accident): QUALIFIERS: CVA mechanism: embolism Laterality of affected vessel: bilateral (3) Syncope: (4) Mass of left parotid gland: (5) TIA (transient ischemic attack): (6) Depression: (7) Anxiety: (8) Essential (primary) hypertension: (9) Hyperlipidemia: QUALIFIERS: Hyperlipidemia type: unspecified Qualified Code(s): E 78.5 - Hyperlipidemia, unspecified (10) Tetrahydrocannabinol (THC) dependence: (11) GERD (gastroesophageal reflux disease): QUALIFIERS: Esophagitis presence: without esophagitis Qualified Code(s): K21.9 - Gastro-esophageal reflux disease without esophagitis (12) YE (obstructive sleep apnea): (13) Coronary artery disease: (14) Type 2 diabetes mellitus with hyperglycemia: PLAN: Plan 64 year old male with below past medical history hospitalized for stroke, admitted to RU, failed discharge home 2/2 syncope, admitted to TCU with debility, here for rehabilitation, strengthening, prior to discharge home alone. * Debility - PT/OT. * Dysphagia - ST. * Pain - Tylenol 650mg q6 prn. * Bowel - senna/colace 1 tablet bid, Magnesium citrate 150mL po x 1 prn. * Adult immunization - Administer pneumonia vaccine, covid vaccine, flu vaccine as appropriate. * DVT prophylaxis - Hold, on dual antiplatelet therapy. * Hypertension - Losartan 100mg daily, Amlodipine 10mg daily. * Stroke - Aspirin 81mg, Plavix 75mg daily. * Hyperlipidemia - Atorvastatin 80mg qhs. * Diabetes Mellitus II - Metformin 750mg bid, Glipizide 7.5mg qam. * CAD - Losartan 100mg daily, Plavix 75mg daily, Aspirin 81mg daily. * Tobacco Abuse - Nicotine 21mg td daily. * GERD - Pantoprazole 04mg daily. * BPH - Tamsulosin 0.4mg daily. * Left parotid mass - f/u ENT as outpatient. * UTI - diaphoretic, urine culture > 100,000 cfu gram positive organism, Cipro 500mg po bid x 7 days, 1st dose now. The following psychotropic medication was present on admission: Lexapro 20mg daily. Psychotropic medication therapy is indicated for a diagnosis of: Major Depression. Based on my clinical evaluation, continuation of the medication is necessary at this time. Gradual dose reduction plan (select one): ____ GDR will be attempted. Will monitor patient symptoms and behaviors in response to GDR. __x__ GRD contraindicated. Reason contraindicated: stable chronic snf use.
[2025-04-22] MEDS: Senna/Docusate Sodium 1 Tablet PO (22:38)
--- NOTE | 2025-04-23 02:19 | NURSING ---
Patient noted to be very restless, diaphoretic. Blood sugar 112. Other VS: [id number]%RA. Dr. Vuong notified of s/sx, review of labs drawn in ER as well pending urine culture. New order received for Cipro 500mg bid x 7 days. Patient bladder scanned as well, 296cc noted. Patient informed of new orders, verbalized understanding. Currently resting in bed with call light within reach.
[2025-04-23 06:22] LABS: Hematocrit 38.9 % (40-54); Hemoglobin 13.6 g/dL (13.0-16.5); Immature Granulocytes Count 0.040 X10^3/uL (0.0-0.0); Mean Corp Hgb Conc 35.0 g/dL (32-36); Mean Corpuscular Volume 93.3 fL (80-94); Mean Platelet Vol. 10.6 fl (6.2-12.0); NRBC Flagged by Analyzer 0 % (0-5); POSITIVE DIFFERENTIAL YES; Platelet Count 215 K/mm3 (150-450); RBC Distribution Width CV 12.1 % (11.6-14.6); RBC Distribution Width SD 41.4 fl (35.1-43.9); Red Blood Count 4.17 M/mm3 (4.6-6.2); White Blood Count 11.2 K/mm3 (4.4-11.0)
[2025-04-23 06:31] LABS: Differential Indicated SCAN CRITERIA MET
[2025-04-23 06:33] LABS: Anion Gap 10 (5-15); BUN 12 mg/dL (4-19); BUN/Creat Ratio 17.7 RATIO (10-20); Calcium,Total 9.3 mg/dL (7.6-11.0); Carbon Dioxide 22.1 mmol/L (21.0-32.0); Chloride 101 mmol/L (98-108); Estimated Creatinine Clearance 94.92 ml/min (50-250); Glucose 107 mg/dL (70-99); Potassium 4.0 mmol/L (3.3-5.1)
[2025-04-23 08:19] VITALS: BP 134/75; PULSE 100; RESP 18; O2SAT 96
[2025-04-23] MEDS: glipiZIDE 2.5 MG TAB.ER.24 7.5 MG PO (08:20)
[2025-04-23] MEDS: Senna/Docusate Sodium 1 Tablet PO ×2 (08:21→20:25)
[2025-04-23] MEDS: Nicotine (PBKC) 21 MG Patch TD (08:22)
[2025-04-23] MEDS: Tuberculin,Purif.prot.deriv. 50 TU/ML Vial 0.1 ML ID (17:39)
[2025-04-23 21:00] VITALS: PULSE 118; RESP 18; O2SAT 94
--- NOTE | 2025-04-23 23:40 | NURSING ---
Patient restless again this evening. Changed positions in bed several times, with head lying at foot of bed. Denies any pain, numbness/tingling. Alarms in place to alert staff of attempts to self transfer. Call light within reach.
[2025-04-24 03:00] VITALS: TEMP 35.8
[2025-04-24 06:11] LABS: Anion Gap 12 (5-15); BUN 15 mg/dL (4-19); BUN/Creat Ratio 20.1 RATIO (10-20); Calcium,Total 9.6 mg/dL (7.6-11.0); Carbon Dioxide 21.8 mmol/L (21.0-32.0); Chloride 99 mmol/L (98-108); Estimated Creatinine Clearance 94.92 ml/min (50-250); Glucose 135 mg/dL (70-99); Potassium 4.0 mmol/L (3.3-5.1)
[2025-04-24] MEDS: Senna/Docusate Sodium 1 Tablet PO ×2 (09:11→20:37)
[2025-04-24] MEDS: glipiZIDE 2.5 MG TAB.ER.24 7.5 MG PO (09:12)
[2025-04-24] MEDS: Nicotine (PBKC) 21 MG Patch TD (09:13)
--- NOTE | 2025-04-24 09:54 | NURSING ---
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 He is very soft spoken and hard to hear. He will sit in the dayroom and watch tv, read or when in his room he will rest and visit w/family. He welcomes the therapy dog and correction officer penitentiary when available. Staff will remind him of weekly activities and offer him to be taken to the dayroom and respect his right to say no.
[2025-04-24 10:00] VITALS: BP 136/75; PULSE 98; RESP 16; TEMP 36.6; O2SAT 96
--- NOTE | 2025-04-24 10:12 | PCM.PN.DRR ---
Documented by User: Eve Doyle 04/24/25 10:34 TCU RX Drug Regimen Review Subjective/Objective Subjective/Objective Subjective: TCU Admission. 64 YOM presented to ER with syncope after being discharged from Inpatient Rehab. Hospitalized for stroke, admitted to RU, failed discharge home 2/2 syncope. Admitted to TCU with debility for strengthening and rehabilitation. Objective: Allergies Sulfa (Sulfonamide Antibiotics) Allergy (Severe, Verified 04/22/25 15:30) Hives, Sweating, SOB Current Medications Generic Name Dose Route Start Last Admin Trade Name Freq PRN Reason Stop Dose Admin Acetaminophen 650 mg 04/22/25 20:53 Acetaminophen 325 Mg Tablet PO Q6H PRN PRN Pain Score 1-10 Amlodipine Besylate 10 mg 04/23/25 10:00 04/24/25 09:13 Amlodipine 10 Mg Tablet PO 10 mg DAILY SELVIN Administration Protocol Aspirin 81 mg 04/23/25 08:00 04/24/25 09:11 Aspirin 81 Mg Tab.Chew PO 81 mg BREAKFAST SELVIN Administration Atorvastatin Calcium 80 mg 04/22/25 22:00 04/23/25 20:25 Atorvastatin Calcium 80 Mg Tablet PO 80 mg QHS SELVIN Administration Ciprofloxacin HCl 500 mg 04/23/25 01:50 04/24/25 09:13 Ciprofloxacin 500 Mg Tablet PO 04/30/25 01:51 500 mg BID SELVIN Administration Clopidogrel Bisulfate 75 mg 04/23/25 10:00 04/24/25 09:14 Clopidogrel Bisulfate 75 Mg Tablet PO 75 mg DAILY SELVIN Administration Escitalopram Oxalate 20 mg 04/22/25 22:00 04/23/25 20:25 Escitalopram Oxalate 20 Mg Tablet PO 20 mg QHS SELVIN Administration Glipizide 7.5 mg 04/23/25 08:00 04/24/25 09:12 Glipizide 2.5 Mg Tab.Er.24 PO 7.5 mg BREAKFAST SELVIN Administration Sodium Chloride 250 mls @ 15 mls/hr 04/22/25 21:06 IV .[id number] PRN Saline Flush Sodium Chloride 250 mls @ 15 mls/hr 04/22/25 21:06 IV .[id number] PRN Additional IVPB Infusion Losartan Potassium 100 mg 04/23/25 10:00 04/24/25 09:13 Losartan Potassium 100 Mg Tablet PO 100 mg DAILY SELVIN Administration Protocol Magnesium Citrate 150 ml 04/22/25 20:59 Magnesium Citrate 300 Ml PO X1 PRN Constipation Metformin HCl 750 mg 04/23/25 08:00 04/24/25 09:12 Metformin Hcl 500 Mg Tablet PO 750 mg BIDCM SELVIN Administration Nicotine 21 mg 04/23/25 10:00 04/24/25 09:13 Nicotine (Pbkc) 21 Mg Patch TD 21 mg DAILY SELVIN Administration Pantoprazole Sodium 40 mg 04/23/25 10:00 04/24/25 09:13 Pantoprazole Sodium 40 Mg Tablet PO 40 mg DAILY SELVIN Administration Senna/Docusate Sodium 1 tablet 04/22/25 22:00 04/24/25 09:11 Senna/Docusate Sodium 1 Tablet PO 1 tablet BID SELVIN Administration Sodium Chloride 10 - 40 ml 04/22/25 21:06 0.9% Saline Lock 10 Ml Syringe IV UD PRN SALINE FLUSH Tamsulosin HCl 0.4 mg 04/23/25 17:30 04/23/25 17:42 Tamsulosin Hcl 0.4 Mg Capsule PO 0.4 mg DAILY@1730 SELVIN Administration Tuberculin PPD 0.1 ml 04/30/25 10:00 Tuberculin,Purif.Prot.Deriv. 50 Tu/Ml Vial ID 04/30/25 10:01 X1 ONE Problem List Type 2 diabetes mellitus with hyperglycemia (Acute) Coronary artery disease (Acute) Tetrahydrocannabinol (THC) dependence (Acute) Essential (primary) hypertension (Acute) Anxiety (Acute) Depression (Acute) TIA (transient ischemic attack) (Acute) Syncope (Acute) Mass of left parotid gland (Acute) Debility (Acute) CVA (cerebral vascular accident) (Acute) GERD (gastroesophageal reflux disease) (Chronic) Hyperlipidemia (Chronic) Vital Signs Temp Pulse Resp BP Pulse Ox O2 Del Method 97.5 F L 118 H 18 134/75 H 94 Room Air 04/22/25 21:03 04/23/25 21:00 04/23/25 21:00 04/23/25 08:19 04/23/25 21:00 04/23/25 21:00 Oxygen Delivery Method Room Air Weight: 82.1 kg Body Mass Index (BMI) 27.1 Sodium 133 mmol/L (133-145) 04/24/25 05:15 Potassium 4.0 mmol/L (3.3-5.1) 04/24/25 05:15 Chloride 99 mmol/L (98-108) 04/24/25 05:15 Carbon Dioxide 21.8 mmol/L (21.0-32.0) 04/24/25 05:15 Anion Gap 12 (5-15) 04/24/25 05:15 BUN 15 mg/dL (4-19) 04/24/25 05:15 Creatinine 0.75 mg/dL (0.70-1.20) 04/24/25 05:15 Est GFR (MDRD) Non-Af 100 (>60) 04/24/25 05:15 BUN/Creatinine Ratio 20.1 RATIO (10-20) H 04/24/25 05:15 Glucose 135 mg/dL (70-99) H 04/24/25 05:15 Assessment/Plan: 1. Pain: acetaminophen 650mg PO Q6H PRN pain 1-10. Resident has not used any prn doses at this time. Monitor pain scores before/after prn administration for response, PRN pain medication usage, symptoms of pain/resident distress and ability to participate in therapy. 2. Bowel: senna/docusate 1T PO BID and magnesium citrate 150mL PO x1 PRN constipation. Resident has not used any prn doses at this time. Last document bowel movement: 04/22/25. Monitor for usage of prn medications, abdominal pain, frequency of bowel movements, diarrhea. Recommend holding bowel regimen if resident develops diarrhea. 3. UTI: ciprofloxacin 500mg PO BID thru 04/30/25. Please continue to monitor for S/S of infection, urine culture (growing staph epi), diarrhea, renal function, joint pain. 4. Hypertension/CAD/stroke: losartan 100mg PO daily, amlodipine 10mg PO daily clopidogrel 75mg PO daily and aspirin 81mg PO daily. Monitor serum potassium (last K = 4mmol/L), renal function (SCr = 0.75mg/dL). Monitor for development of peripheral edema. BP range since admission =116/68-145/85, HR range since admission 92-118.?BP control appropriate at this time. Monitor blood pressure, heart rate, symptoms of orthostasis, dizziness. Monitor for GI upset, symptoms of bleeding (including melena, hemoptysis, hematuria, epistaxis, new-onset headache), hemoglobin (last Hgb =13.6g/dL) and allergic reactions.? Consider checking orthostatic blood pressure and implementing fall precautions with any indication of orthostatic hypotension. Monitor for chest pain, shortness of breath, exercise tolerance. 5. Hyperlipidemia: atorvastatin 80mg PO QHS. Recent dose increase from 40mg. Please continue to monitor lipid panel (last 04/10/25), LFTs (last 04/13/25 WNL) and muscle pain. 6. Diabetes Mellitus II: metformin 750mg PO BID and glipizide 7.5mg PO QAM (dose recently increased from 5mg). Please continue to monitor hemoglobin A1c (last 04/10/25 7.4%), glucose (last 135mg/dL, 119mg/dL, 113 mg/dL, 94 mg/dL), GFR (last >100mL/min), S/S of hypoglycemia. 7. GERD: pantoprazole 40mg PO daily. Monitor for diarrhea (consider possibility of C. diff if develops). Consider serum magnesium level and B12 level with long-term use if indicated. If clinically appropriate, consider dose reduction/weaning of medication due to long term acute care registered nurse risks of C. diff and fractures (Beers). 8. BPH: tamsulosin 0.4mg PO daily. Please continue to monitor for S/S of BPH and BP. 9. Tobacco Abuse: nicotine 21mg patch TD daily. Please continue to monitor for nicotine cravings, nightmares and HR. Assessment/Plan for indications treated with psychotropic medications: 1. Major depression: escitalopram 20mg PO daily. Please see physician note regarding GDR. Monitor for diarrhea, nausea, headache, anxiety or drowsiness, suicidal thoughts or behaviors (Boxed Warning), symptoms of bleeding, symptoms of serotonin syndrome (including agitation, confusion, hyperreflexia, rigidity/myoclonus, tremor, tachycardia, tachypnea), sodium levels (last Na =133mmol/L). Monitor for efficacy including resident symptoms, behaviors and indications of distress. Monitor for tolerability including mental status, cognition, excessive sleepiness, withdrawal or decreased participation in activities and decline in physical functioning. Maximize use of nonpharmacologic/behavioral interventions to facilitate dose reduction or discontinuation as appropriate. Please evaluate the appropriateness of GDR unless contraindicated. If appropriate, GDR should be attempted in 2 separate quarters within the first year of use or admission to TCU. If GDR attempted, monitor resident symptoms/behaviors. Medical chart and medication regimen reviewed. The following medication irregularities or issues were identified: No recommendations for resident at this time. Date Date of Note: 04/24/25 Documented by User: Dr. Sd Vuong MD 04/24/25 10:45 U RX Drug Regimen Review Provider Comments Provider responsibility Provider Comments to Recommendations by Pharmacy Agree
--- NOTE | 2025-04-24 11:25 | CASEMGMT ---
Social Work SW spoke with pt and verified no changes to initial assessment, as pt just DC'd from IRU and this worker's care. SW educated to Medicare benefit on TCU and since pt does not have a secondary insurance, copays would begin on 05/22 if pt is still admitted at $209.50/day, which would be billed to the pt after DC. SW inquired about reason for admission. Pt shared he went out to eat after RU DC, then to [facility], and walked all that time, and I think I just did too much, then I fell. SW empathized with pt and provided encouragement for recovery on TCU. SW will assist with DC plans again this stay. Pt appreciative. Kasey Boyd MOTOR INSPECTION MECHANIC RING SEWER
--- NOTE | 2025-04-24 13:45 | MDS.RN ---
Resident's sister, Jessica, voiced concern of resident's soft voice since stroke, ST updated.
--- NOTE | 2025-04-24 14:55 | NURSING ---
Offered covid vaccine, VIS provided. Resident declines.
--- NOTE | 2025-04-24 14:56 | NURSING ---
Offered covid vaccine, VIS provided. Resident declines.
[2025-04-24] MEDS: 0.9% Saline Lock 10 ML Syringe IV ×2 (16:42→20:38)
[2025-04-25 00:42] VITALS: BMI 26.6
[2025-04-25] MEDS: glipiZIDE 2.5 MG TAB.ER.24 7.5 MG PO (08:54)
[2025-04-25] MEDS: Senna/Docusate Sodium 1 Tablet PO ×2 (08:55→20:30)
[2025-04-25] MEDS: 0.9% Saline Lock 10 ML Syringe IV ×2 (08:56→20:30)
[2025-04-25] MEDS: Nicotine (PBKC) 21 MG Patch TD (09:00)
[2025-04-25 09:07] VITALS: BP 144/83; PULSE 107; RESP 18; TEMP 36.1; O2SAT 93
--- NOTE | 2025-04-25 10:37 | NURSING ---
NICOTINE PATCH REMOVED AND NEW PATCH PLACED ON RT DELT. DISPOSED OF OLD PATCH IN DESTROYER. RN AWARE
--- NOTE | 2025-04-25 15:08 | CHAPLAIN ---
Type of Pastoral Visit ___ Initial Visit ___ Follow-up Visit ___ On-call Visit ___ General Patient Visit ___ Spiritual Assessment ___ Family Conference ___ Bereavement ___ Rapid Response ___ Code Blue ___ Other (describe below) Pastoral Care Referral From ___ Patient ___ Family ___ Nurse ___ Physician ___ Prepleater ___ Skirt Maker ___ Other (describe below) Sacrament/Intervention ___ Active listening ___ Anointing ___ Mosque ___ Bereavement ___ Communion ___ Mildred exploration ___ ___ Life review ___ Prayer ___ Reconciliation ___ Sacrament of Sick ___ Supportive presence ___ Wedding ___ Other (describe below) Pastoral Comments therapy was just beginning for patient at time of attempted visit
--- NOTE | 2025-04-25 15:57 | NURSING ---
PT LEFT BY WHEEL CHAIR TO [facility] AT 1550 WITH FAMILY.
--- NOTE | 2025-04-25 18:03 | NURSING ---
PT RETURNED FROM [facility] AT 1720 NEW ORDERS FOR THE 30 DAY HEART MONITOR,WILL NEED NOÉ FOLLOW UP BASED ON MRI RESULTS. DID ORDER A MRI DUE TO THERAPY STATING HOW PT WAS IN THERAPY AND NOT LIKE THAT AT D/C ON 04/22/25 FROM REHAB. PT SISTER STATED PT WAS NOT LIKE THIS AFTER D/C FROM REHAB. SISTER ALSO STATED FAMILY WILL BE BRING SUPPER IN FOR PT TOMORROW 04/26/25. PT ALSO HAS NEUROLOGY APPOINTMENT ON 05/01/25 AND STATED SHE WILL CANCEL APPOINTMENT IF PT STILL HERE. RN AWARE
[2025-04-25 20:15] VITALS: RESP 18
[2025-04-25] MEDS: Doxepin Hydrochloride 10 MG Capsule PO (20:30)
--- NOTE | 2025-04-25 21:55 | NURSING ---
Patient continues to have impulsive behaviors, attempting to self transfer and get up without assistance even after staff assists him with needs such as toileting. Patient does not follow commands. 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 Patient has been educated on the importance to utilize call light when he needs assistance. Consulted Dr Vuong via telephone. New order for Ativan 1 mg QHS PRN. Telephone order read back and verified.
[2025-04-26 00:21] VITALS: BP 102/77; PULSE 126; RESP 20; TEMP 37.3; O2SAT 95
--- NOTE | 2025-04-26 00:24 | NURSING ---
Addendum entered by Priya Henry 04/26/25 06:15: Updated Daughter, Lyn, this morning at 0607 of patient's fall. Original Note: Patient utilized call light at 2335, METAL COATER OPERATOR answered call light stating she would be in there shortly. Staff heard patient's pressure sensitive alarm ringing, METAL COATER OPERATOR immediately ran into room. Patient was sliding out of bed, METAL COATER OPERATOR helped lower patient to the floor. Two RNs entered room after hearing METAL COATER OPERATOR call for help. Vitals obtained: BP- 102/7, HR-126, SpO2- 95% on RA, RR-20, and Temperature- 99.2. Blood sugar 103, offered patient snack and juice, patient accepted. Staff x3 assisted patient off floor into recliner using gait belt. Patient A/O x3 but seems to be confused. Staff asked patient what he was trying to do prior to fall, patient replied, nothing. This nurse told patient he utilized call light to use BSC and asked patient if he still needed to use the restroom. Patient denies. Bladder scanned patient d/t potential retention from current UTI. Scanned amount of 241ml of urine in bladder. Per protocol, no rocha needed at this time. No new injuries observed. Patient c/o knee pain, PRN tylenol administered per his request. Patient restless and anxious, PRN Ativan administered per order. Patient does not follow commands, often is inpatient and very impulsive to attempt to get up without staff assistance. Alarms already in place. Staff transferred patient in his recliner to the [facility], chair alarm in place and functioning. Technology Applications Consultant and Photo Graphics Librarian notified of fall. Patient denies further assistance at this time. Brownlee in reach, patient verbalized understanding to ring brownlee if he needs assistance.
[2025-04-26 00:53] VITALS: TEMP 37.6
--- NOTE | 2025-04-26 02:54 | NURSING ---
Confused, poor safety awareness, restless, 1:1 observation at this time is TCU lounge to promote safety, throwing legs over recliner, rocking back and forth in recliner at times despite non-pharmacologic interventions, (toileting, prn pain medication, fluids, food, television, warm blanket, 1:1, repositioning), closes eyes at times and begins to attempt self transfers, when asked what patient needs patient unable to state direct request, often states I wasn't going anywhere. Dr. Vuong contacted via telephone and notified of continued confusion, continued restlessness despite PRN ativan, poor safety awareness, frequent attempts to self transfer, difficulty sleeping, lowered to floor at 23:36 attempting self transfer, 1:1 staff observation to promote safety. VORB Ativan 1mg PO x1 give now
--- NOTE | 2025-04-26 04:07 | NURSING ---
No restlessness at this time, incontinence care provided at this time, assisted to bed x2 staff assist, positioned for comfort. PA in place as ordered and functioning properly. No distress observed or reported. Presents in bed with eyes closed, resps even and unlabored. Personal items and call mckeon within reach.
[2025-04-26 06:12] VITALS: TEMP 37.2
[2025-04-26] MEDS: glipiZIDE 2.5 MG TAB.ER.24 7.5 MG PO (09:38)
[2025-04-26] MEDS: Senna/Docusate Sodium 1 Tablet PO ×2 (09:40→21:56)
[2025-04-26] MEDS: Nicotine (PBKC) 21 MG Patch TD (09:40)
[2025-04-26 11:24] VITALS: BP 122/68; PULSE 98; RESP 18; TEMP 36.7; O2SAT 91
--- NOTE | 2025-04-26 13:43 | CASEMGMT ---
Social Work IDT met with patient and dtr at bedside, then sister participated via conference call for care plan meeting. Discussed patient's progress in PT/OT/ST/SN/RDN. Educated to Medicare benefit and copays starting 05/12. Provided pt/family with written communication of insurance process and copay coverage during stay. Dtr inquired about Medicaid coverage, as they are in the process of applying. SW educated that [facility] is not [facility] with [facility], and if pt still needs skilled services, Medicare will continue to cover, but pt will still need to DC to another SNF. Family expressed understanding and stated it would be the same preferences as given in RU, expect [facility]. SW clarified- [facility], [facility] and [facility]. Family confirmed. SW explained this worker will wait on making referrals until pt stabilizes and closer to DC but family is welcome to tour prior. Pt has had a change in condition and Dr overseeing his care. Empathized with changes. Family understanding. SW will continue to follow for DC planning. Kasey Boyd JEWISH HISTORY PROFESSOR SWIMMING PROFESSOR
--- NOTE | 2025-04-26 13:46 | CHAPLAIN ---
Type of Pastoral Visit ___ Initial Visit ___ Follow-up Visit ___ On-call Visit ___ General Patient Visit ___ Spiritual Assessment ___ Family Conference ___ Bereavement ___ Rapid Response ___ Code Blue ___ Other (describe below) Pastoral Care Referral From ___ Patient ___ Family ___ Nurse ___ Physician ___ Solid Waste Collector ___ Curling Machine Operator ___ Other (describe below) Sacrament/Intervention ___ Active listening ___ Anointing ___ Adventism ___ Bereavement ___ Communion ___ Mildred exploration ___ ___ Life review ___ Prayer ___ Reconciliation ___ Sacrament of Sick ___ Supportive presence ___ Wedding ___ Other (describe below) Pastoral Comments two attempts today to see patient but he is not in his room; left a calling card
[2025-04-26] MEDS: Magnesium Citrate 300 ML 150 ML PO (15:30)
--- NOTE | 2025-04-26 17:55 | NURSING ---
Sister updated on medication changes made this AM and all questions were answered to her satisfaction.
[2025-04-26 20:15] VITALS: PULSE 123; O2SAT 96
[2025-04-26] MEDS: 0.9% Saline Lock 10 ML Syringe IV (21:56)
--- NOTE | 2025-04-26 23:01 | NURSING ---
Pt restless and agitated, tapping table in sitting room. Nonpharmacological interventions such as turning and repositioning, toileting, fluids, snack, distraction, television and one on one ineffective.
--- NOTE | 2025-04-27 07:37 | NURSING ---
See paper nurses note related to PRN Ativan administration @ 0310. Pt still agitated, restless, reaching out, attempting to get up unassisted despite PRN Ativan administration. 1:1 staff to promote pt safety. Written communication left for Dr. Vuong regarding pt not having BM for 5 days despite PRN milk of mag given.
--- NOTE | 2025-04-27 07:45 | NURSING ---
Patient 1:1 staff supervision throughout the night, restless and confused despite non-pharmacologic and pharmacologic interventions. Fidgeting, reaching hands out toward ceiling, stripping clothing, attempting to self transfers, conversing with self, kicking at staff at times. Awake throughout the night. 1:1 staff supervision continues. Written communication left for Dr. Vuong. Dr. Vuong on unit at this time
[2025-04-27] MEDS: Nicotine (PBKC) 21 MG Patch TD (11:08)
--- NOTE | 2025-04-27 11:16 | NURSING ---
MORNING MEDS NOT GIVEN DUE TO PT LETHARGIC. VITALS DONE, OLD NICOTINE PATCH REMOVED AND PUT IN DESTROYER. NEW LANE PATCH APPLIED TO RT DELT. PT SLEEPING AT THIS TIME IN RECLINER IN [facility],ALARM ON.
--- NOTE | 2025-04-27 13:28 | NURSING ---
Call from Dr. Vuong, asking about how resident doing. Let him know he has been mostly lethargic this morning, starting to wake up a bit, still sleepy but a somewhat restless, pulled heart monitor off etc. Hasn't eaten and has not been awake enough to safely take meds. Verbal order to start on NS @100ml/hr.
[2025-04-27] MEDS: 0.9% Saline Lock 10 ML Syringe IV (13:46)
[2025-04-27] MEDS: 0.9% Normal Saline (1000mL) 1,000 ML 100 ML IV (13:57)
--- NOTE | 2025-04-27 14:27 | NURSING ---
Addendum entered by Cristela Gonzalez 04/27/25 14:54: Call back from Sister Jessica. Updated her on how resident has been today and that IVF started. She'd talked to Lyn and knew updates from Dr. Vuong from this morning. They do plan to try to take him to appt on Thursday. She states her niece is a nurse, and other family is EMT and she will also be there. Discussed seeing how he's doing over the weekend as right now he couldn't get into a car with family. She was in agreement. Original Note: Attempted to call sister and discuss transport for appt on Thursday and update her resident started on IVF. No answer, will attempt again later.
--- NOTE | 2025-04-27 15:22 | CHAPLAIN ---
Type of Pastoral Visit ___ Initial Visit ___ Follow-up Visit ___ On-call Visit ___ General Patient Visit ___ Spiritual Assessment ___ Family Conference ___ Bereavement ___ Rapid Response ___ Code Blue _x__ Other (describe below) Pastoral Care Referral From ___ Patient ___ Family ___ Nurse ___ Physician ___ Target Developer ___ Last Sorter _x__ Other (describe below) Sacrament/Intervention ___ Active listening ___ Anointing ___ Caodaism ___ Bereavement ___ Communion ___ Mildred exploration ___ ___ Life review ___ Prayer ___ Reconciliation ___ Sacrament of Sick _x__ Supportive presence ___ Wedding ___ Other (describe below) Pastoral Comments patient is sleeping and after attempts to wake him he remains sound asleep; pt was given a card yesterday; no further attempts
--- NOTE | 2025-04-27 15:28 | CHAPLAIN ---
Type of Pastoral Visit ___ Initial Visit ___ Follow-up Visit ___ On-call Visit ___ General Patient Visit ___ Spiritual Assessment ___ Family Conference ___ Bereavement ___ Rapid Response ___ Code Blue ___ Other (describe below) Pastoral Care Referral From ___ Patient ___ Family ___ Nurse ___ Physician ___ Grip Wrapper ___ Office Clin Asst ___ Other (describe below) Sacrament/Intervention ___ Active listening ___ Anointing ___ Nondenominational ___ Bereavement ___ Communion ___ Mildred exploration ___ ___ Life review ___ Prayer ___ Reconciliation ___ Sacrament of Sick ___ Supportive presence ___ Wedding ___ Other (describe below) Pastoral Comments patient was being rolled out in recliner to the activities area but was sound asleep; pt would not wake up to staff nor to this aviation technician; this is third day of attempts to see patient who is not responding to visit
--- NOTE | 2025-04-27 16:26 | NURSING ---
HEART MONITOR STILL ON AND WORKING. GREEN LIGHT FLASHING.
[2025-04-27 18:28] VITALS: BP 122/75; PULSE 88; RESP 18; O2SAT 93
--- NOTE | 2025-04-27 18:34 | NURSING ---
PT HAS SLEPT ALL DAY. BUT WOULD OPEN EYES OFF AND ON AND GO BACK TO SLEEP. VITALS WNL. PT REFUSED TO EAT OR DRINK. NORMAL SALINE RUNNING 100ML/HR. DID GET 1700 MEDS IN PT,PT DID WELL AND THEN WENT BACK TO SLEEP.
[2025-04-27] MEDS: Senna/Docusate Sodium 1 Tablet PO (20:21)
[2025-04-27 20:45] VITALS: RESP 16
[2025-04-28] MEDS: 0.9% Normal Saline (1000mL) 1,000 ML 100 ML IV ×3 (00:15→20:22)
[2025-04-28 03:14] VITALS: PULSE 91; RESP 16; O2SAT 90
[2025-04-28 05:42] VITALS: PULSE 91; RESP 17; TEMP 37.2; O2SAT 90
[2025-04-28 06:08] LABS: Hematocrit 33.8 % (40-54); Hemoglobin 12.0 g/dL (13.0-16.5); Immature Granulocytes Count 0.050 X10^3/uL (0.0-0.0); Mean Corp Hgb Conc 35.5 g/dL (32-36); Mean Corpuscular Volume 90.6 fL (80-94); Mean Platelet Vol. 10.0 fl (6.2-12.0); NRBC Flagged by Analyzer 0 % (0-5); POSITIVE DIFFERENTIAL YES; Platelet Count 225 K/mm3 (150-450); RBC Distribution Width CV 12.1 % (11.6-14.6); RBC Distribution Width SD 39.9 fl (35.1-43.9); Red Blood Count 3.73 M/mm3 (4.6-6.2); White Blood Count 11.7 K/mm3 (4.4-11.0)
[2025-04-28 06:17] LABS: Differential Indicated SCAN CRITERIA MET
[2025-04-28 06:40] LABS: Anion Gap 12 (5-15); BUN 11 mg/dL (4-19); BUN/Creat Ratio 15.1 RATIO (10-20); Calcium,Total 8.6 mg/dL (7.6-11.0); Carbon Dioxide 20.1 mmol/L (21.0-32.0); Chloride 101 mmol/L (98-108); Estimated Creatinine Clearance 87.88 ml/min (50-250); Glucose 100 mg/dL (70-99); Potassium 3.7 mmol/L (3.3-5.1)
[2025-04-28] MEDS: Senna/Docusate Sodium 1 Tablet PO ×2 (08:56→20:08)
[2025-04-28 09:03] VITALS: BP 145/69; PULSE 95; RESP 16; TEMP 36.1; O2SAT 94
--- NOTE | 2025-04-28 09:03 | MDS.RN ---
Pain assessment for MDS complete.
--- NOTE | 2025-04-28 11:57 | CASEMGMT ---
Social Work SW completed BIMS () and PHQ-2 () for MDS assessment. SW observed pt having drowsy eyes and pt needed cues to project his voice to hear his responses. Kasey Boyd MSW COMMUNICATION AND OUTREACH MANAGER
--- NOTE | 2025-04-28 16:57 | NURSING ---
Dr. Vuong ordered Covid test, respiratory panel, throat lozenges, and BMX mouth wash for patient's having cough and low grade temp last night. Covid swab and resp panel were negative. Family aware patient was being tested and to be made aware of results.
[2025-04-28] MEDS: 0.9% Saline Lock 10 ML Syringe IV (20:22)
[2025-04-29] MEDS: 0.9% Normal Saline (1000mL) 1,000 ML 100 ML IV (06:26)
[2025-04-29] MEDS: Senna/Docusate Sodium 1 Tablet PO ×2 (09:58→20:10)
[2025-04-29 10:02] VITALS: BP 145/84; PULSE 97; RESP 18; TEMP 36.7; O2SAT 95
[2025-04-29 16:00] VITALS: BP 127/75; PULSE 90; O2SAT 96
--- NOTE | 2025-04-29 16:37 | NURSING ---
HEART MONITOR PHONE CHARGED AND MONITORING. GREEN LIGHT ON MONITOR FLASHING. PT DOING WELL TODAY. PT CALLED HIS SISTER, BEEN IN LOUNGER/RECLINER MOST OF DAY AND USING THE CONTROLS AND WATCHED THE [employer] GAME. ASKS TO USE RESTROOM. EATING AND DRINKING WELL. IV FLUIDS STOPPED PER DR.KWOK ALCARAZ. RN AWARE
[2025-04-29 19:30] VITALS: RESP 16
--- NOTE | 2025-04-29 22:52 | NURSING ---
Addendum entered by Priya Henry 04/29/25 23:17: service restorer emergency went into patient's room to assist with toileting. Patient swung his arm near service restorer emergency' faces when they were attempting to change his attends d/t episode of incontinence. Patient angrily raised voice saying, I don't want that paper thing on me! Patient then kicked his legs as service restorer emergency were trying to place new attends on him. THOROUGHBRED HORSE FARM MANAGER's educated patient that the attends is to protect the beds since he can have episodes of incontinence. Patient agreed to wear them with underwear from home placed over top. Per his request, service restorer emergency placed underwear over top. Call light in reach. Original Note: Patient displaying behaviors of impulsivity, restlessness, anxiety, and agitation. Patient unable to sleep. PRN Ativan administered as order, PRN medication ineffective. Behaviors remain unchanged. Staff has assisted patient multiple times with toileting, changing positions (ex. Up to chair, recliner in family lounge, back to bed), and providing comfort. RN asked patient orientation questions, patient was unable to tell staff what time of day it was. He thought it was six o'clock after looking at the clock fo the time. Time was almost 2300. Staff repeatedly observed patient throwing blankets off himself, stripping clothes, and rocking himself to a sitting position to get up without assistance. When staff asked patient what he was trying to do, patient replied angrily, I'm not trying to get up! Patient visibly observed getting up to the side of his bed by himself. Alarms in place and functioning, call light in reach. This nurse re-educated patient on the importance of utilizing call light if he needs assistance.
[2025-04-30] MEDS: 0.9% Saline Lock 10 ML Syringe IV (01:26)
--- NOTE | 2025-04-30 01:49 | NURSING ---
Patient 1:1 supervision with sitter. Patient remains restless moving legs and arms in the air. PRN Ativan administered d/t behaviors of restlessness, impulsivity, and anxiety. Offered patient a snack, patient accepted. Staff encouraged patient to relax after snack. Patient requesting to use the restroom again at this time despite being taken multiple times within the hour. Written communication left for Dr. Vuong regarding continuation of restlessness.
--- NOTE | 2025-04-30 04:26 | NURSING ---
Patient frequently asking to use the restroom and not voiding. Bladder scanned patient d/t potential retention. Bladder scanned amount of 165ml urine in the bladder. Assisted patient to the restroom. Patient did not void. Returned patient back to bed.
[2025-04-30 08:54] VITALS: BP 145/71; PULSE 84; RESP 18; TEMP 36.4; O2SAT 95
[2025-04-30 09:02] LABS: Ammonia 18.7 umol/L (16-60)
[2025-04-30] MEDS: Senna/Docusate Sodium 1 Tablet PO ×2 (09:06→21:12)
--- NOTE | 2025-04-30 09:17 | NURSING ---
PT SISTER CALLED IN,UPDATED HER ON MED CHANGES AND PT RESTLESSNESS AND COMBATIVE REPORT FROM SOLUTION PROFESSIONAL. PT CONTINUES TO BE RESTLESS AND GETTING UP AND DOWN EVERY 10 MINS. FALLS A SLEEP FOR 5 MINS AND BACK UP AGAIN. ASKED PT IF HE HAD PAIN PT STATED NO. PRN XANAX GIVEN.
[2025-04-30] MEDS: 0.9% Normal Saline (1000mL) 1,000 ML 100 ML IV ×2 (11:00→21:13)
--- NOTE | 2025-04-30 11:30 | NURSING ---
PT RESTING AFTER PRN XANAX GIVEN. NEW ORDERS FOR IV NORMAL SALINE 100 ML/HR. NEW IV TO RT FOREARM,22G,1 A TEMP. HAD AID HELP DUE TO PT JERKING. RN AWARE.
[2025-04-30] MEDS: Tuberculin,Purif.prot.deriv. 50 TU/ML Vial 0.1 ML ID (11:54)
[2025-04-30 15:00] LABS: Mucous, Urine 0 SEEN /hpf (<or=2+); Red Blood Cells-Urine 0 SEEN /hpf (0-5); Squamous Epithelial Cells - UA 0 SEEN /hpf (0-5)
[2025-04-30 15:03] LABS: Color, Urine Yellow (Yellow); Glucose, Dipstick Normal (Normal); Ketone-Dipstick 5 mg/dl (Negative); Leukocyte Esterase-Dipstick Negative /ul (Negative); Nitrite-Dipstick Negative (Negative); Occult Blood-Urine Negative /ul (Negative); Protein-Dipstick 15 mg/dl (Negative); Specific Gravity, Urine 1.015 (1.002-1.030); Urine Bilirubin Dipstick Negative (Negative)
--- NOTE | 2025-05-01 04:50 | NURSING ---
Patient continues to have 1:1 staff supervision throughout the shift d/t constant restlessness, impulsivity, anxiety, and agitation. These behaviors continue despite non-pharmacologic and pharmacologic interventions. Patient states to this nurse, I cannot get to sleep. I am not restless like this at home. Per his request, PRN Xanax administered with HS medications. Restlessness and agitation continues after PRN Xanax. CUSTOMS INSPECTOR reports observing this patient fidgeting, getting up to go somewhere after just being transferred, stripping his clothing, muttering to himself, and kicking legs in the air. Patient whispers when communicating, sometimes will just move lips with no vocals. Patient does not follow commands at times and gets easily frustrated when staff assists him with toileting and transfers. Redirection is not always effective, he becomes adamant about moving to chair after just being placed into the bed and vice versa. Calls out to use the restroom multiple times an hour, sometimes with no result. Written communication left for Dr. Vuong. 1:1 staff supervision continues to promote safety.
[2025-05-01 08:02] VITALS: BP 132/67; PULSE 76; RESP 16; TEMP 36.6; O2SAT 95
[2025-05-01] MEDS: 0.9% Normal Saline (1000mL) 1,000 ML 100 ML IV ×2 (08:04→20:47)
--- NOTE | 2025-05-01 08:21 | NURSING ---
Sales Order Administrator Note; MDS for 04/29/2025 Complete
[2025-05-01] MEDS: Senna/Docusate Sodium 1 Tablet PO ×2 (09:32→20:45)
--- NOTE | 2025-05-01 13:24 | NURSING ---
Addendum entered by Cristela Gonzalez 05/01/25 14:15: Updated Jessica about call to [employer], she was adamant that he was supposed to have 2 monitors. Let her know RN gave company the device number and they looked up his account and verified he only had one. Let her know more strips were being mailed out. Original Note: Notified from staff that over the weekend the family was saying resident had 2 of the heart monitors and that one must have been lost here. RN called and spoke with [employer] and verified that with his device there is only one monitor provided. Asked if more strips could be sent out as he is getting low. They verified address and it matched to what they have on file, will send more strips to the resident's home address at no additional cost.
[2025-05-01 13:25] VITALS: RESP 16
--- NOTE | 2025-05-01 14:14 | NURSING ---
Pt left floor via wheelchair with family for neuro appointment.
--- NOTE | 2025-05-01 15:47 | CHAPLAIN ---
Type of Pastoral Visit ___ Initial Visit ___ Follow-up Visit ___ On-call Visit ___ General Patient Visit ___ Spiritual Assessment ___ Family Conference ___ Bereavement ___ Rapid Response ___ Code Blue ___ Other (describe below) Pastoral Care Referral From ___ Patient ___ Family ___ Nurse ___ Physician ___ Academic Interventionist ___ Oxygen Equipment Preparer ___ Other (describe below) Sacrament/Intervention ___ Active listening ___ Anointing ___ Mormonism ___ Bereavement ___ Communion ___ Mildred exploration ___ ___ Life review ___ Prayer ___ Reconciliation ___ Sacrament of Sick ___ Supportive presence ___ Wedding ___ Other (describe below) Pastoral Comments patient is out at time of visit
--- NOTE | 2025-05-01 17:04 | NURSING ---
Addendum entered by Steph King 05/01/25 17:23: New order for clopidogrel 75 mg daily x 21 days. Original Note: Pt returned from Neuro appointment with family. No new orders.
[2025-05-01 17:37] VITALS: BP 143/86; PULSE 89; RESP 18; TEMP 36.5; O2SAT 97
[2025-05-02] MEDS: 0.9% Normal Saline (1000mL) 1,000 ML 100 ML IV ×2 (05:55→16:06)
--- NOTE | 2025-05-02 07:19 | MDS.RN ---
Information for the MDS was obtained from review of the clinical record, interview of resident, staff, and direct observation of resident?s care.
[2025-05-02 08:54] VITALS: BP 153/98; PULSE 109; RESP 18; TEMP 36.4; O2SAT 95
[2025-05-02] MEDS: Senna/Docusate Sodium 1 Tablet PO ×2 (09:02→20:50)
[2025-05-02 10:00] VITALS: RESP 16
--- NOTE | 2025-05-02 12:44 | NURSING ---
Had JOINERY SETTER OUT sitting with resident for safety d/t restlessness. He slept well overnight and has been cooperative and displaying less restlessness today. Will discontinue sitter and continue to monitor. Left him sitting across from nurse's station watching TV in his recliner. Chair locked, alarm set. Denies any needs at this time.
--- NOTE | 2025-05-02 16:08 | CHAPLAIN ---
Type of Pastoral Visit _x__ Initial Visit ___ Follow-up Visit ___ On-call Visit ___ General Patient Visit ___ Spiritual Assessment ___ Family Conference ___ Bereavement ___ Rapid Response ___ Code Blue ___ Other (describe below) Pastoral Care Referral From _x__ Patient ___ Family ___ Nurse ___ Physician ___ Mash Filter Press Operator ___ Airbrush Artist ___ Other (describe below) Sacrament/Intervention ___ Active listening ___ Anointing ___ Pentecostal ___ Bereavement ___ Communion ___ Mildred exploration ___ ___ Life review ___ Prayer ___ Reconciliation ___ Sacrament of Sick _x__ Supportive presence ___ Wedding ___ Other (describe below) Pastoral Comments patient was available today for a visit; pt was sitting in the activities area; pt does respond to questions for the most part but his voice is very soft; pt does not engage in conversation but gives short answers to questions of comments; pt says that he is doing okay and that he does not need anything; pt says yes to offer of prayer; otherwise just sat next to patient in a chair and watched his reactions and gave presence and a person to be near him
[2025-05-02] MEDS: Pramipexole Di-HCl 0.125 MG Tablet PO (17:35)
--- NOTE | 2025-05-02 18:16 | NURSING ---
Pt restless this shift. Kicking legs and unable to get comfortable. Spoke with Dr. Vuong and new order for mirapex TID. IV fluids continue at 100 cc per hour.
--- NOTE | 2025-05-02 22:30 | NURSING ---
Pt not tolerating regular thin liquids tonight. Nurse tried water and sprite but patient started coughing. Nurse did thicken sprite due to pt requesting something to drink. Nurse felt unsafe to give pt thin liquids d/t possibility of aspiration. Will continue to monitor. Pt does have a speech consult already
--- NOTE | 2025-05-02 23:31 | NURSING ---
Pt was put into bed by RANGE CONSERVATIONIST's, pt would not stay in bed, was untwisting IV. Pt brought back out to dining area, assisted to recliner to keep close eye on pt, to avoid falls. Will continue to monitor
--- NOTE | 2025-05-03 01:32 | NURSING ---
Increase restlessness while sitting in dining area, putting legs in the air, kicking in the air. Administered prn Xanax. Pt is having difficult swallowing water, administered medications with applesauce instead
[2025-05-03] MEDS: 0.9% Normal Saline (1000mL) 1,000 ML 100 ML IV ×2 (01:55→12:47)
[2025-05-03 06:24] VITALS: RESP 18
[2025-05-03 09:41] VITALS: BP 118/63; PULSE 93; RESP 18; TEMP 36.4; O2SAT 96
[2025-05-03] MEDS: Senna/Docusate Sodium 1 Tablet PO ×2 (09:56→20:16)
[2025-05-03 13:32] VITALS: PULSE 93; RESP 18; O2SAT 96
--- NOTE | 2025-05-03 14:24 | CASEMGMT ---
Social Work SW phoned dtr to follow up on DC plans as is approaching (05/12). SW explained IDT is recommending pt transfer to a SNF skilled to continue with skilled therapy and nursing for possible improvements. Dtr agreed and updated [facility] F[facility], and [facility]. SW to wait until 05/08 to make those referrals given the holiday and to give more opportunity for changes with the pt. Dtr agreed. Dtr voiced she feels pt is a failure to thrive; she spoke with the pt yesterday and they agreed to change pt's code status to DNR-CC. SW updated nursing. Dtr appreciative. SW will continue to follow for DC planning. Kasey Boyd CLOTH COVERED HELMET PULLER RIVET DRIVER
[2025-05-03 16:00] VITALS: BP 123/72; PULSE 88; RESP 26; TEMP 36.2; O2SAT 93
--- NOTE | 2025-05-03 16:56 | NURSING ---
PT ONLY SLEPT AN HOUR TODAY. DID NOT TRY TO GET UP. NEW DIETARY ORDERS, AND MIRAPEX INCREASED TO 0.5. FAMILY AWARE.
--- NOTE | 2025-05-03 17:01 | NURSING ---
HEART MONITOR AND PHONE IS CHARGED AND MONITORING. GREEN LIGHT BLINKING ON MONITOR.
--- NOTE | 2025-05-03 17:25 | RAD_ITS ---
EXAM: XR Chest, 1 View CLINICAL INDICATION: ASPIRATION, CONGESTION. TECHNIQUE: Frontal view of the chest. COMPARISON: XR Chest dated 03/10/2025 FINDINGS: LUNGS AND PLEURAL SPACES: See below. HEART: Cardiomegaly with mild congestion. MEDIASTINUM: Unremarkable. Normal mediastinal contour. BONES/JOINTS: Unremarkable. No acute fracture. RAD/Chest PA and Lateral IMPRESSION: Cardiomegaly with mild congestion. Reading Location: [id number]
[2025-05-03] MEDS: 0.9% Saline Lock 10 ML Syringe IV (20:26)
--- NOTE | 2025-05-04 00:08 | NURSING ---
Addendum entered by Priya Henry 05/04/25 01:12: Updated Daughter, Lyn, on patient's behaviors this shift. Patient spoke to daughter on the phone. Daughter recommended trying valium, benadryl, and clonazepam since he took these medications at home for anxiety and restlessness. Updated daughter on medications he currently is on and what was given at HS. Daughter stated she would call patient's sister and discuss this with her. Written communication left for Dr. Vuong. Original Note: Patient restless, kicking legs and swinging arms in the air, removing his clothes, attempting to get up without assistance, picking at his IV. Patient unable to tell staff his needs. Patient transported between bed, wheelchair, and recliner multiple times every hour. Often does not stay in the same place for more than 10 minutes without trying to get up. Staff has assisted him to the restroom frequently. PRN Xanax administered with HS meds, ineffective for anxiety/restlessness/sleep. Patient gets agitated with staff, swinging arms and refusing to follow commands when assisting him. Patient swinging legs out of bed and does not answer staff when they ask him what he needs or where he is trying to go. Patient is unable to be redirected. Staff frequently running in patient's room to promote patient safety. Call light in reach.
--- NOTE | 2025-05-04 01:49 | NURSING ---
Consulted Dr. Vuong via telephone updating him of patient's status, lab results, and family's concerns. New orders to D/C IV fluids and D/C nicotine gum. New orders for SELVIN Nicotine patch 21mg and morphine 10mg SL Q4H PRN. Telephone orders read back and verified. Updated family of new orders.
[2025-05-04] MEDS: morphine (oral solution) 10MG/0.5ML Syringe 10 MG SL (02:01)
[2025-05-04] MEDS: Nicotine (PBKC) 21 MG Patch TD ×2 (02:02→21:19)
[2025-05-04 04:00] VITALS: PULSE 88; RESP 18; O2SAT 94
[2025-05-04 07:45] VITALS: BP 149/82; PULSE 105; RESP 19; TEMP 36.3; O2SAT 95
--- NOTE | 2025-05-04 07:45 | NURSING ---
MASTIC SPRAYER Alerted this nurse to alarm and needing assistance with PT. PT found naked on floor leaning on alarm pad, alarm worked but still had pressure from pts arm . no injuries noted VS BP149/82 SPO2 RA-94% HR-105 T-97.[address] RESP [address] Vuong Notified. PT now resting in recliner.
--- NOTE | 2025-05-04 09:48 | NURSING ---
Addendum entered by Silverio Smiley 05/04/25 17:02: PT ALSO RIPPED HEART MONITOR STRIP OFF AND THERE ARE NO MORE STRIPS TO ATTACH BACK ON TO PT TO MONITOR. PHONE AND MONITOR PLACED BACK IN BOX TILL NEW STRIPS ARRIVE. Original Note: POWDER AND PRIMER CANNING LEADER CAME TO THIS NURSE AT 0745 AND STATED PHARMACY TECHNICIAN PER DIEM AND HER FOUND PT SITTING ON FLOOR BESIDE BED WITH HIS ARM ON BED ON TOP OF ALARM PAD. BED IN LOW POSITION. THIS NURSE TO ROOM, ASKED PT IF HE HURT ANY WHERE? PT STATED NO! PHARMACY TECHNICIAN PER DIEM GOT VITALS AND POWDER AND PRIMER CANNING LEADER ASSESSED PT. AND X2 GOT PT IN RECLINER. THIS NURSE NOTIFIED AND SOA ARCHITECT. TOOK PT OUT IN [facility] IN HIS RECLINER WITH ALARM ON AND PT SLEEPING.
[2025-05-04 10:09] VITALS: BP 155/86; PULSE 86; RESP 18; TEMP 36.2; O2SAT 94
[2025-05-04] MEDS: Senna/Docusate Sodium 1 Tablet PO ×2 (10:44→21:20)
[2025-05-04 15:04] VITALS: BP 123/67; PULSE 85; RESP 17; TEMP 36; O2SAT 95
--- NOTE | 2025-05-04 16:13 | NURSING ---
PT HAD A X-LARGE INCONTINENCE AT 8AM THIS MORNING AND HAS NOT PEED SENSE THEN. BLADDER SCANNED AT 1600 FOR 188. WILL CONTINUE TO MONITOR. RN AWARE
--- NOTE | 2025-05-04 16:49 | NURSING ---
ACCORDING TO CHARTING PT HAS NOT HAD A BM IN 5 DAYS. PT EATING 25%. HAS BEEN GIVEN SCHEDULED SENNA PT AWAKE AT HIS TIME AND RESTLESS. PRUNE JUICE GIVEN. WILL CONTINUE TO MONITOR.
--- NOTE | 2025-05-04 17:43 | NURSING ---
PT DAUGHTER IN AND UPDATED. DAUGHTER ALSO BROUGHT IN NEW MONITOR STRIPS. NEW STRIP PLACED ON PT CHEST AND MONITOR/PHONE BEING CHARGED AT THIS TIME. DAUGHTER ALSO BROUGHT IN THANKSGIVING DINNER FOR PT AND IS SITTING WITH PT WHILE HE EATS.
--- NOTE | 2025-05-04 18:46 | NURSING ---
DAUGHTER BROUGHT IN NEW MONITOR STRIPS. HEART MONITOR APPLIED BACK ON TO PT CHEST. HEART MONITOR AND PHONE CHARGED. PHONE MONITORING AND GREEN LIGHT FLASHING ON MONITOR.
[2025-05-05 05:52] LABS: Hematocrit 37.0 % (40-54); Hemoglobin 13.1 g/dL (13.0-16.5); Immature Granulocytes Count 0.060 X10^3/uL (0.0-0.0); Mean Corp Hgb Conc 35.4 g/dL (32-36); Mean Corpuscular Volume 91.8 fL (80-94); Mean Platelet Vol. 9.3 fl (6.2-12.0); NRBC Flagged by Analyzer 0 % (0-5); Platelet Count 290 K/mm3 (150-450); RBC Distribution Width CV 12.6 % (11.6-14.6); RBC Distribution Width SD 42.5 fl (35.1-43.9); Red Blood Count 4.03 M/mm3 (4.6-6.2); White Blood Count 12.6 K/mm3 (4.4-11.0)
[2025-05-05 07:26] LABS: Anion Gap 17 (5-15); BUN 13 mg/dL (4-19); BUN/Creat Ratio 16.9 RATIO (10-20); Calcium,Total 8.8 mg/dL (7.6-11.0); Carbon Dioxide 19.3 mmol/L (21.0-32.0); Chloride 101 mmol/L (98-108); Estimated Creatinine Clearance 87.88 ml/min (50-250); Glucose 130 mg/dL (70-99); Potassium 3.2 mmol/L (3.3-5.1)
[2025-05-05] MEDS: Potassium Chloride Oral Tablet 20 MEQ 40 MEQ PO (12:40)
[2025-05-05] MEDS: Senna/Docusate Sodium 1 Tablet PO (12:44)
[2025-05-05 14:59] VITALS: BP 135/72; PULSE 94; RESP 16; TEMP 36.2; O2SAT 97
--- NOTE | 2025-05-05 15:05 | RAD_ITS ---
PROCEDURE: CHEST PA AND LATERAL 05/05/2025 REASON FOR EXAM: LOW SPO2 TECHNIQUE: Procedure Code: RADCXR Modality: DX Procedure: CHEST PA AND LATERAL COMPARISON: May 03, 2025 FINDINGS: Hardware: Loop recorder is seen over the chest anteriorly Heart: The heart size is normal. Mediastinum: The mediastinal contour is unremarkable. Lungs: No consolidation. Lucent upper lobes consistent emphysema. Mild central bronchial wall thickening best seen on the lateral projection. No pneumothorax or pleural effusion. Bones: Degenerative changes are identified within the thoracic spine. RAD/Chest PA and Lateral IMPRESSION: Emphysema. Possible central bronchial wall thickening. Consider bronchitis. No dense consolidation. Reading Location: [id number]
[2025-05-05] MEDS: MethylPREDNISolone DosePak 4 MG BOX 16 MG PO (16:28)
--- NOTE | 2025-05-05 17:12 | NURSING ---
Patient had an episode of spo2 to 80s and 70s while working with therapy. They brought him back to nurse's station and patient was placed on o2 per NC. Had to be placed on 6L to bring to 93% Dr. Vuong made aware and orders for CXR. CXR showed emphysema and possible Bronchitis. Dr. Vuong made aware and orders for Medrol dose pack, Augmentin, scheduled DuoNeb and PRN albuterol aerosols. Sister Jessica made aware of new orders and about ST making patient NPO due to swallowing difficulties, but that he can take important meds. Patient has been swallowing pills well for this nurse with no coughing or pocketing. Patient's potassium also 3.[address] Vuong wrote 1x order for potassium 40meq. Patient has also not had a BM X6 days. Dr. Vuong made aware and gave order for soap suds enema. Patient received enema and tolerated well and held liquid for a half hour and had large amount of liquid brown output. Sister Jessica made aware.
[2025-05-05 19:26] VITALS: PULSE 101; RESP 22; O2SAT 92
[2025-05-05] MEDS: morphine (oral solution) 10MG/0.5ML Syringe 10 MG SL/PO ×2 (20:06→22:16)
[2025-05-05 20:07] VITALS: PULSE 105; RESP 18; O2SAT 94
--- NOTE | 2025-05-05 20:12 | NURSING ---
Restless, agitated, facial grimacing, shakes head yes when offered PRN pain medication. Toileted, repositioned, 1:1, sitter at bedside, television on to preferred channel, assisted to bed to promote comfort. Confused. Whispering in response to questions at times. O2 on at 6L continues. SPO2@ 94% on 6L via NC, hr 105, PRN Roxanol administered as ordered (see MAR). Sitter remains at bedside to promote safety. Call light and personal items within reach.
--- NOTE | 2025-05-05 21:21 | NURSING ---
Lethargic, unable to administer hs medications safely. Dr. Vuong notified via secure text of inability to administer augmentin, trazodone, medrol dosepak, mirapex, nicoderm patch and senna-s. received phone call from Dr. Vuong, received order to contact patient sister regarding comfort care measures at this time, hold all meds and ask if willing to transition to comfort care. LEVARB.
--- NOTE | 2025-05-05 21:23 | NURSING ---
Attempt to contact patient rep/sister per facesheet x2 attempts, no answer.
--- NOTE | 2025-05-05 21:35 | NURSING ---
Addendum entered by Alfredito Sanchez 05/05/25 22:14: patient rep/daughter Lyn notified at time of phone call of new orders from Dr. Vuong to d/c all meds except roxanol as ordered, start Ativan intensol 2mg Q2H SL PRN, Atropine 1 drp Q3H SL. Lyn agreeable to all med changes Original Note: Contacted patient rep/daughter (Lyn) per facesheet. Per Lyn she is medical POA and makes patient's medical decisions, per Lyn, patient sister does not make final medical decisions. Lyn states she is agreeable to comfort care measures, agreeable to no aggressive care, comfort care only, and is interested in hospice services. Per Dr. Vuong, Discuss in-patient hospice option or staying comfort care on TCU, Lyn states she is interested in in-patient hospice but would like to discuss options further with patient sister in AM and states Lyn and patient sister has a meeting on Thursday with Dr. Vuong to discuss the nexts steps in his care. Lyn verbalized understanding to notify patient nurse at any time for social media project manager contact or patient concerns.
--- NOTE | 2025-05-05 22:03 | NURSING ---
Per Dr. Vuong consult inpatient hospice tomorrow (thursday05/06/25) if patient daughter/sister in agreement
--- NOTE | 2025-05-05 22:18 | NURSING ---
Addendum entered by Alfredito Sanchez 05/05/25 23:29: correction: sitter remains at bedside. Original Note: Restless, agitated, moaning, facial grimacing. Confused. Non-pharmacologic interventions ineffective (toileting offered, 1:1, distraction, soft music, reposition), moans when asked if in pain. Does not respond verbally, eyes open. PRN Roxanol administered as ordered. 1:1 sister remains at bedside.
--- NOTE | 2025-05-06 06:03 | NURSING ---
Lethargy continues, no void since 1999, bladder scan 531, patient responds to verbal and tactile stimuli by opening eyes briefly and closing them. Does not respond to questions verbally at this time. Straight cath per order. Patient tolerates well, no distress observed or reported at this time. T&R at this time, positioned for comfort. O2 on at 6LPM via NC, spo2 @ 98%. Sitter remains at bedside. Personal alarm in place and functioning properly. Call light and personal items within reach.
[2025-05-06 06:06] VITALS: PULSE 99; RESP 18; O2SAT 96
[2025-05-06 06:50] VITALS: O2SAT 96
--- NOTE | 2025-05-06 07:38 | NURSING ---
Received return phone call from patient rep/sister Jessica. Jessica requesting update, updated on discussion with patient rep/daughter Lyn regarding lethargy, restlessness at times, Lyn agreeable to comfort care, discontinued medication, PRN Roxanol continues as ordered, new order for Ativan PRN and Atropine PRN. Jessica notified that per Dr. Vuong in-patient hospice can be consulted today if desired. Jessica expresses thanks for update, agreeable to new orders, states will converse with Lyn this date and notify nurse of desired plan of care.
[2025-05-06 07:40] LABS: Anion Gap 11 (5-15); BUN 16 mg/dL (4-19); BUN/Creat Ratio 20.6 RATIO (10-20); Calcium,Total 9.6 mg/dL (7.6-11.0); Carbon Dioxide 24.0 mmol/L (21.0-32.0); Chloride 101 mmol/L (98-108); Estimated Creatinine Clearance 87.88 ml/min (50-250); Glucose 157 mg/dL (70-99); Potassium 4.4 mmol/L (3.3-5.1)
[2025-05-06] MEDS: morphine (oral solution) 10MG/0.5ML Syringe 10 MG SL/PO ×2 (09:00→17:45)
[2025-05-06 10:00] VITALS: BP 128/78; PULSE 97; RESP 18; TEMP 36.3; O2SAT 96
--- NOTE | 2025-05-06 12:52 | NURSING ---
Addendum entered by Meenakshi Jaramillo 05/06/25 14:59: SW calls and notifies that [facility] will come to unit 05/07 @ 1330 to assess pt. Addendum entered by Meenakshi Jaramillo 05/06/25 13:06: SW reports that pt's daughter agreed to IP hospice. SW will call [facility] and request that [facility] call nurses station to update on time planned to visit pt/family. Original Note: Pts daughter Lyn arrives to unit. Asking to speak with SW regarding inpatient hospice criteria. SW called, planning to stop by room this afternoon. Pt had some restlessness earlier this morning, woke easily to verbal stimuli and responded to simple questions. Was unable to use urinal after multiple attempts, straight cath obtained 450mL urine. Pt received PRN atropine dose and PRN morphine dose this morning, has been resting peacefully.
--- NOTE | 2025-05-06 13:21 | CASEMGMT ---
Social Work CHRONOMETER ADJUSTERRosina Anthony asked SW to speak w/family regarding hospice. SW met w/daughter Lny/WHITNEY in the room, she put pt's sister Jessica on the phone. SW reviewed hospice options with daughter Lyn and Jessica on the phone. They are agreeable to meet w/hospice to discuss options. SW spoke w/RN, physician had put in a communication to order hospice if family agreeable. Order placed, SW called [facility] and made referral over the phone, faxed over the information. SW asked them to call daughter Lyn to make appt and call TCU w/appt time. SW remains available for any additional referral needs in regard to this pt. MICHELET Bowman
--- NOTE | 2025-05-06 15:48 | CASEMGMT ---
Social Work Hospice to meet w/pt and family on Thursday at 1:30pm. RN on floor aware. MICHELET Bowman
--- NOTE | 2025-05-06 16:35 | NURSING ---
Pt restless and unable to void in urinal. Previous bladder scan (this afternoon) showed ~250mL. per orders, inserted rocha catheter. Clear, yellow uring draining. Pt tolerated well. Oral care provided. Pt currently resting in bed with eyes closed, family at bedside.
--- NOTE | 2025-05-06 17:00 | NURSING ---
Pt is Comfort care N.O. received to Discontinue BID accuchecks. Order read back.
[2025-05-06] MEDS: LORazepam 2 MG/ML Bottle PO (22:09)
[2025-05-07] MEDS: LORazepam 2 MG/ML Bottle PO ×5 (05:33→20:48)
[2025-05-07] MEDS: morphine (oral solution) 10MG/0.5ML Syringe 10 MG SL/PO ×4 (05:44→20:47)
[2025-05-07 11:49] VITALS: BP 150/77; PULSE 94; RESP 16; TEMP 36.4; O2SAT 93
--- NOTE | 2025-05-07 18:01 | NURSING ---
Family at bedside. Pt NPO requesting sprite. Family requesting Sprite be provided. Family was educated on aspiration risk, family requested Sprite still be provided. Sprite zero thickened and provided by jose. Dr. Vuong notified.
--- NOTE | 2025-05-07 18:10 | NURSING ---
RN into evaluate pt approximately 11:30am. Pt AOx1 to self. Pt thought the year was 2023 but reported President as Marcelo. Pt noted to have increased leg movements and roll back and forth in bed. Oral care provided. PRN Ativan administered. Family arrived at 12pm and stayed until 5:30pm. Approx 5 family members present for Hospice meeting. Pt sat on edge of bed with family and back rub administered by family. Fluids provided per family request. Pt noted to have increased restless, unable to get comfortable, kept moving in bed and sitting up on the side of the bed throughout family visiting PRNs provided. Will continue to monitor and access.
[2025-05-08] MEDS: LORazepam 2 MG/ML Bottle PO ×2 (03:24→06:04)
[2025-05-08] MEDS: morphine (oral solution) 10MG/0.5ML Syringe 10 MG SL/PO (06:36)
--- NOTE | 2025-05-08 09:15 | CASEMGMT ---
Addendum entered by Kasey Boyd 05/08/25 10:43: SW spoke with Melia at [facility] and although dtr has been providing documents, dtr has not completed the RICK application at this time. All 3 SNFs have denied. SW phoned dtr again and left a VM. Original Note: Social Work SW followed up with Shari at [facility] to inquire about status of pt. Pt was approved for IPU over the weekend, but dtr was hesitant about moving pt to IPU then the need to move to a SNF. If pt/dtr elect IPU, pt would need to be re-evaluated for acceptance. RAMON phoned dtr to follow up on plan. Dtr was still sleeping and asked for this worker to call back. RAMON sent referrals to SNFs via [facility] to prepare. Will continue to follow. Kasey Boyd PILE DRIVING TECHNICIAN DUCT MAKER
[2025-05-08 09:30] VITALS: BP 121/92; PULSE 104; RESP 16; TEMP 36.2; O2SAT 97
--- NOTE | 2025-05-08 11:29 | DS.PCM_ITS ---
Providers Date of Admission: 04/22/25 Primary Care Physician: Dr. Padmini Barth DO Reason For Visit: [place] Diagnosis Discharge Diagnosis (1) Debility: Status: Acute Code(s): R53.81 - Other malaise (2) CVA (cerebral vascular accident): Status: Acute Code(s): I63.9 - Cerebral infarction, unspecified Qualifiers: CVA mechanism: embolism Laterality of affected vessel: bilateral (3) Syncope: Status: Inactive Code(s): R55 - Syncope and collapse (4) Mass of left parotid gland: Status: Acute Code(s): K11.8 - Other diseases of salivary glands (5) TIA (transient ischemic attack): Status: Acute Code(s): G45.9 - Transient cerebral ischemic attack, unspecified (6) Depression: Status: Acute Code(s): F32.A - Depression, unspecified (7) Anxiety: Status: Acute Code(s): F41.9 - Anxiety disorder, unspecified (8) Essential (primary) hypertension: Status: Chronic Code(s): I10 - Essential (primary) hypertension (9) Hyperlipidemia: Status: Acute Code(s): E78.5 - Hyperlipidemia, unspecified Qualifiers: Hyperlipidemia type: unspecified Qualified Code(s): E78.5 - Hyperlipidemia, unspecified (10) Tetrahydrocannabinol (THC) dependence: Status: Acute Code(s): F12.20 - Cannabis dependence, uncomplicated (11) GERD (gastroesophageal reflux disease): Status: Inactive Code(s): K21.9 - Gastro-esophageal reflux disease without esophagitis Qualifiers: Esophagitis presence: without esophagitis Qualified Code(s): K21.9 - Gastro-esophageal reflux disease without esophagitis (12) YE (obstructive sleep apnea): Status: Resolved Code(s): G47.33 - Obstructive sleep apnea (adult) (pediatric) (13) Coronary artery disease: Status: Acute Code(s): I25.10 - Atherosclerotic heart disease of viejas coronary artery without angina pectoris (14) Type 2 diabetes mellitus with hyperglycemia: Status: Acute Code(s): E11.65 - Type 2 diabetes mellitus with hyperglycemia Plan 64 year old male with below past medical history hospitalized for stroke, admitted to [facility], failed discharge home 2/2 syncope, admitted to TCU with debility, here for rehabilitation, strengthening, prior to discharge home alone. * Debility - PT/OT. * Dysphagia - ST. * Pain - Tylenol 650mg q6 prn. * Bowel - senna/colace 1 tablet bid, Magnesium citrate 150mL po x 1 prn. * Adult immunization - Administer pneumonia vaccine, covid vaccine, flu vaccine as appropriate. * DVT prophylaxis - Hold, on dual antiplatelet therapy. * Hypertension - Losartan 100mg daily, Amlodipine 10mg daily. * Stroke - Aspirin 81mg, Plavix 75mg daily. * Hyperlipidemia - Atorvastatin 80mg qhs. * Diabetes Mellitus II - Metformin 750mg bid, Glipizide 7.5mg qam. * CAD - Losartan 100mg daily, Plavix 75mg daily, Aspirin 81mg daily. * Tobacco Abuse - Nicotine 21mg td daily. * GERD - Pantoprazole 04mg daily. * BPH - Tamsulosin 0.4mg daily. * Left parotid mass - f/u ENT as outpatient. * UTI - diaphoretic, urine culture > 100,000 cfu gram positive organism, Cipro 500mg po bid x 7 days, 1st dose now. The following psychotropic medication was present on admission: Lexapro 20mg daily. Psychotropic medication therapy is indicated for a diagnosis of: Major Depression. Based on my clinical evaluation, continuation of the medication is necessary at this time. Gradual dose reduction plan (select one): ____ GDR will be attempted. Will monitor patient symptoms and behaviors in response to GDR. __x__ GRD contraindicated. Reason contraindicated: stable chronic office spec use. Hospital Course Operations None Procedures None Summary of Care Provided Minutes Spent on Discharge: 35 Hospital Course: 64 year old male with below past medical history hospitalized for stroke, admitted to [facility], failed discharge home 2/2 syncope, admitted to TCU with debility, here for rehabilitation, strengthening, prior to discharge home alone. Lasha continues to decline. He is NPO. Discharge 05/08/2025 to Inpatient Hospice facility for end of life care. Physical Exam Const alert General Appearance: cooperative HEENT normocephalic Eyes PERRL and EOMs intact bilaterally Neck supple, no JVD and no carotid bruits Resp normal respiratory effort, normal air movement and clear to auscultation bilaterally Cardio regular rate and regular rhythm GI normal to inspection, nondistended, normoactive bowel sounds, non-tender and non-distended Extremity normal capillary refill General Extremity: Negative for edema Skin no rashes or lesions noted General Skin Exam: no breakdown Psych affect normal Appearance: appropriate Weight / BMI Weight Weight: 80.467 kg Body Mass Index (BMI) 26.6 ABG / Lab / Microbiology Data 05/05/25 05:10 05/06/25 06:04 Microbiology: Microbiology 05/03/25 17:40 Mucosa - Nasopharyngeal Respiratory Panel (PCR) - Final 05/03/25 17:30 Nasal Secretion SARS-CoV-2 Antigen (Rapid) - Final 04/30/25 14:20 Urine, Clean Catch Urine Culture - Final Culture exhibits no growth. 04/28/25 09:40 Mucosa - Nose Respiratory Panel (PCR) - Final 04/28/25 08:45 Nasal Secretion SARS-CoV-2 Antigen (Rapid) - Final D/C Instructions DC O2, CPAP, BIPAP Needs Home O2 Discharge instructions: No Additional Instructions: Discharge 05/08/2025 to Inpatient Hospice facility for end of life care. Please Follow Up With: Cheryl Miller When: Cancel. Meaningful Use Info Meaningful Use Meaningful Use Diagnoses (Choose all that apply): None applicable Discharge Plan Admission Admit Date/Time: 04/22/25 20:15 Primary Reason for Your Visit: Debility. Attending Provider: Sd Vuong Chi Primary Care Provider: Padmini Barth Instructions Additional Instructions / Restrictions: Discharge 05/08/2025 to Inpatient Hospice facility for end of life care. Discharge Orders/Prescriptions Prescriptions: Discontinued aspirin 81 mg Tablet,Chewable 81 mg PO BREAKFAST Qty: 0 0RF atorvastatin 80 mg Tablet 80 mg PO QHS Qty: 30 0RF acetaminophen 325 mg Tablet 650 mg PO Q6H PRN PRN (Reason: Pain Score 1-10) Qty: 1 0RF amlodipine 10 mg Tablet 10 mg PO DAILY Qty: 30 0RF metformin 500 mg Tablet 750 mg PO BIDCM Qty: 90 0RF Rx Instructions: 1 and 1/2 tabs twice a day. tamsulosin 0.4 mg Capsule 0.4 mg PO DAILY@1730 Qty: 30 0RF Rx Instructions: This medication is for prostate and helps with urine retention. glipizide 2.5 mg Tablet Extended Release 24hr 7.5 mg PO BREAKFAST Qty: 30 0RF pantoprazole 40 mg Tablet,Delayed Release (Dr/Ec) 40 mg PO DAILY Qty: 30 0RF nicotine 21 mg/24 hr Patch 24 Hour 21 mg transdermal DAILY Qty: 28 0RF clopidogrel 75 mg Tablet 75 mg PO DAILY Qty: 21 0RF losartan 100 mg tablet 100 mg PO DAILY Qty: 30 0RF escitalopram oxalate 20 mg tablet 20 mg PO QHS Qty: 30 0RF Referrals / Follow Up: Padmini Barth DO [Primary Care Provider, Internal Medicine] Disposition Disposition (needs filled in before D/C Order can be placed): Hospice in Medical Facility
[2025-05-08 11:30] VITALS: PULSE 104; RESP 18
[2025-05-08 11:34] VITALS: BP 121/92; PULSE 104; RESP 16; TEMP 36.2; O2SAT 93
[2025-05-08 11:43] VITALS: PULSE 104; O2SAT 93
--- NOTE | 2025-05-08 11:43 | CASEMGMT ---
Social Work Received call from dtr. RAMON updated on IPU acceptance, SNF denials and need for RICK pending or pt will have to pay privately. Dtr expressed confusion as she was thought the hospice denied for IPU d/t the need for pt to still DC to a SNF afterwards; and dtr thought pt needed RICK for IPU. RAMON attempted to explain answers but dtr remaining confused and asked to include Jessica in the conversation. SW offered to called Shari at Hospice to get clarification and return call to dtr. Dtr agreed. RAMON phoned Shari at hospice and Shari read Dr. Tong's note from meeting with family, which read that pt was approved for IPU but recognized the strain on the pt if another transfer would need to be made, but would agree to either plan the family elects. Shari stated pt would not need to be re-evaluated for IPU today; Dr. Monte on staff and can provide orders. Confirmed pt meets criteria and insurance will cover IPU at 100%. SW appreciative. RAMON returned call to dtr and Tess was on the phone as well. RAMON explained above and answered questions. Discussed RICK and barrier to admission to SNF as a pending number can take several days. Family conflicted. SW offered for pt to admit to IPU today to start services for pt, not to delay that care, but for dtr to contact Melia knapp [facility] to submit RICK application and family to work with hospice SW on other SNFs to prepare for possible transfer. Family agreed and appreciative. RAMON updated Shari at [facility] and sent updated clinicals as requested. Pt approved. RAMON scheduled transport with [facility] for noon slate picker. IDT updated. Plan: DC 05/08 to [facility] IPU Kasey Boyd FIRE WATCHERElijah BAGLEYW
== END 2025-05-08 11:30 | disposition hospice, inpatient (51) | DRG 312 ==
PROVIDERS: Admitting Provider Family Medicine Geriatric Medicine; PCP Internal Medicine; Visit Provider Family Medicine Geriatric Medicine
DX: R55 Syncope and collapse (principal); J69.0 Pneumonitis due to inhalation of food and vomit; J44.1 Chronic obstructive pulmonary disease with (acute) exacerbation; N39.0 Urinary tract infection, site not specified; E11.65 Type 2 diabetes mellitus with hyperglycemia; E78.5 Hyperlipidemia, unspecified; B95.7 Other staphylococcus as the cause of diseases classified elsewhere; F12.20 Cannabis dependence, uncomplicated; F32.9 Major depressive disorder, single episode, unspecified; I10 Essential (primary) hypertension; G25.81 Restless legs syndrome; F41.9 Anxiety disorder, unspecified; K21.9 Gastro-esophageal reflux disease without esophagitis; I25.10 Atherosclerotic heart disease of native coronary artery without angina pectoris; K11.8 Other diseases of salivary glands; F17.210 Nicotine dependence, cigarettes, uncomplicated; G47.33 Obstructive sleep apnea (adult) (pediatric); Z79.02 Long term (current) use of antithrombotics/antiplatelets; Z79.84 Long term (current) use of oral hypoglycemic drugs; Z79.82 Long term (current) use of aspirin; N40.1 Benign prostatic hyperplasia with lower urinary tract symptoms; Z79.899 Other long term (current) drug therapy; R33.8 Other retention of urine; Z86.73 Personal history of transient ischemic attack (TIA), and cerebral infarction without residual deficits; Z86.011 Personal history of benign neoplasm of the brain; G47.00 Insomnia, unspecified
CPT/HCPCS: 36415; 71046; 80048; 81001; 82140; 82962; 85025; 87086; 87633; 87811; 92507; 92523; 92526; 92610; 94640; 97110; 97162; 97167; 97530; 97535; 97802; 99406; A4216

== ENCOUNTER → 2025-04-26 | Outpatient (CLI) | payer MEDICARE, SELFPAY ==
--- NOTE | 2025-04-26 10:40 | MRI_ITS ---
PROCEDURE: BRAIN WITHOUT CONTRAST 04/26/2025 REASON FOR EXAM: R/O STROKE TECHNIQUE: Procedure Code: MRIBR Modality: MR Procedure: BRAIN WITHOUT CONTRAST Multiplanar and multisequence images were obtained. COMPARISON: CT head April 22, 2025. FINDINGS: Brain: Encephalomalacia in the right temporal lobe. Foci of hyperintense signal on T2 and FLAIR which are nonspecific but most likely due to chronic small vessel ischemia. Parenchymal volume loss consistent with brain atrophy. No restricted diffusion. No hemorrhage. No mass-effect or midline shift. The orbits are unremarkable. The midline structures and craniocervical junctions are within normal limits. No ventriculomegaly. Ventricles: Consistent with the overall degree of cerebral atrophy. Major Intracranial Vessels: Patent. Sinuses: Clear. Mastoids: Clear. MRI/Brain without Contrast IMPRESSION: No acute brain abnormalities. Chronic brain changes which are nonspecific but most likely to chronic small-ve ssel ischemia. Reading Location: [id number]
== END | disposition home or self-care (01) ==
PROVIDERS: PCP Internal Medicine; Referring Provider Family Medicine Geriatric Medicine; Visit Provider Family Medicine Geriatric Medicine
DX: I67.82 Cerebral ischemia (principal)
CPT/HCPCS: 70551